=== PATIENT | female | born 1965 | race Caucasian/White ===

== ENCOUNTER → 2016-07-08 | Outpatient (CLI) | payer MEDICAID | LOC: WI 12:22 | PROVIDERS: ATTEND Internal Medicine Medical Oncology | DX: I42.7 Cardiomyopathy due to drug and external agent (principal); N63 Unspecified lump in breast | CPT/HCPCS: 78472; 76641; A9560; Q9969 ==

== ENCOUNTER → 2016-07-09 | Outpatient (CLI) | payer MEDICAID | LOC: RAD 13:00 | PROVIDERS: ATTEND Internal Medicine Medical Oncology | DX: C79.51 Secondary malignant neoplasm of bone (principal); C50.919 Malignant neoplasm of unspecified site of unspecified female breast | CPT/HCPCS: 71260; 74177 ==

== ENCOUNTER → 2016-07-19 | Outpatient (CLI) | payer MEDICAID | LOC: RAD 10:20 | PROVIDERS: ATTEND Internal Medicine Medical Oncology | DX: C50.919 Malignant neoplasm of unspecified site of unspecified female breast (principal); R51 Headache | CPT/HCPCS: 70553; 78306; A9577; A9503; Q9969 ==

== ENCOUNTER → 2016-07-26 | Day surgery (SDC) | payer MEDICAID ==
[~2016-07-26] MED LIST: LIDOCAINE 2% INJ (20 MG/ML) 20 ML MDV ONE
== END ==
LOC: WI 12:40
PROVIDERS: ATTEND Internal Medicine Medical Oncology
PROC: 0HBT3ZX Excision of Right Breast, Percutaneous Approach, Diagnostic (ICD-10-PCS; principal; 2016-07-26)
DX: D05.91 Unspecified type of carcinoma in situ of right breast (principal); Z17.0 Estrogen receptor positive status [ER+]
CPT/HCPCS: 88342 ×2; 88341 ×2; 88305 ×2; 19083; J3490

== ENCOUNTER 2016-08-12 21:22 | Emergency (ER) | payer MEDICAID ==
[2016-08-12 21:50] VITALS: BP 121/81
--- NOTE | 2016-08-12 21:50 | ER Document Report ---
ED Medical Screen (RME) - General Stated Complaint: POSSIBLE DEHYDRATION Mode of Arrival: Ambulatory Information source: Patient Notes: Patient presents to the emergency department with history of cancer breast cancer that metastasized to her bone. Patient reports diarrhea for the past 4 days. Possible dehydration. She is drinking fluids. She reports chills and diarrhea. I have greeted and performed a rapid initial assessment of this patient. A comprehensive ED assessment and evaluation of the patient, analysis of test results and completion of the medical decision making process will be conducted by additional ED providers. TRAVEL OUTSIDE OF THE [place] IN LAST 30 DAYS: No - Related Data Allergies/Adverse Reactions: latex Allergy (Severe, Verified 11/01/15 10:13) blisters,rash morphine [Morphine] Allergy (Severe, Verified 11/01/15 10:13) short of breath Sulfa (Sulfonamide Antibiotics) Allergy (Intermediate, Verified 11/01/15 10:13) rash Plastic tape Adverse Reaction (Uncoded 11/01/15 10:13) Blisters Past Medical History - Past Medical History Cardiac Medical History: Denies: Hx Coronary Artery Disease, Hx Heart Attack, Hx Hypertension Pulmonary Medical History: Reports: Hx Asthma, Hx COPD - emphysema, Hx Pneumonia Denies: Hx Bronchitis Neurological Medical History: Denies: Hx Cerebrovascular Accident, Hx Seizures Malignancy Medical History: Reports: Hx Breast Cancer - Stage IV, mets to L5 and R & L posterior parietal skull. Musculoskeltal Medical History: Reports Hx Arthritis - generalized, Reports Hx Musculoskeletal Deformity, Reports Hx Musculoskeletal Trauma Psychiatric Medical History: Reports: Hx Anxiety Traumatic Medical History: Reports: Hx Fractures Past Surgical History: Reports: Hx Breast Surgery - Right lumpectomy x2 w/ axillary lymph node diseection., Hx Cholecystectomy, Hx Orthopedic Surgery - Left patellar reconstruction, Hx Tonsillectomy, Hx Tubal Ligation. Denies: Hx Hysterectomy - Immunizations Immunizations up to date: Yes Hx Diphtheria, Pertussis, Tetanus Vaccination: Yes
== END 2016-08-13 05:55 | disposition left against medical advice (07) ==
LOC: ER 21:22
DX: E86.0 Dehydration (principal); R19.7 Diarrhea, unspecified; C50.919 Malignant neoplasm of unspecified site of unspecified female breast; C79.51 Secondary malignant neoplasm of bone; J44.9 Chronic obstructive pulmonary disease, unspecified; Z90.710 Acquired absence of both cervix and uterus; Z88.6 Allergy status to analgesic agent; Z90.49 Acquired absence of other specified parts of digestive tract; Z91.040 Latex allergy status
CPT/HCPCS: 99281

== ENCOUNTER 2016-09-02 01:50 | Emergency (ER) | payer MEDICAID ==
[2016-09-02] MEDS ORDERED: IPRATROPIUM/ALBUTEROL 0.5-2.5 MG/3 ML AMPUL NEB ONE ×2 (02:44→03:32)
--- NOTE | 2016-09-02 02:50 | ER Document Report ---
ED General - General Chief Complaint: Shortness Of Breath Stated Complaint: POSSIBLE PNEUMONIA Notes: Patient is a 50-year-old female who has history of breast cancer and is on chemotherapy. She presents with complaint of cough and nasal congestion. She says she feels as if she cannot get the mucus out of her lungs. She says she has pain in the right side especially when she coughs. No vomiting. No diarrhea. She says that she at times feels chilled 1 her family members turn down with the thermostat in the house; however, she has not checked her temperature thermometer and therefore is unsure if she has actually had any fevers. No other complaints at this time. TRAVEL OUTSIDE OF THE [place] IN LAST 30 DAYS: No - Related Data Allergies/Adverse Reactions: latex Allergy (Severe, Verified 11/01/15 10:13) blisters,rash morphine [Morphine] Allergy (Severe, Verified 11/01/15 10:13) short of breath Sulfa (Sulfonamide Antibiotics) Allergy (Intermediate, Verified 11/01/15 10:13) rash Plastic tape Adverse Reaction (Uncoded 11/01/15 10:13) Blisters Past Medical History - Social History Smoking Status: Unknown if Ever Smoked Frequency of alcohol use: None Drug Abuse: None Family History: Reviewed & Not Pertinent - Past Medical History Cardiac Medical History: Denies: Hx Coronary Artery Disease, Hx Heart Attack, Hx Hypertension Pulmonary Medical History: Reports: Hx Asthma, Hx COPD - emphysema, Hx Pneumonia Denies: Hx Bronchitis Neurological Medical History: Denies: Hx Cerebrovascular Accident, Hx Seizures Renal/ Medical History: Denies: Hx Peritoneal Dialysis Malignancy Medical History: Reports: Hx Breast Cancer - Stage IV, mets to L5 and R & L posterior parietal skull. Musculoskeltal Medical History: Reports Hx Arthritis - generalized, Reports Hx Musculoskeletal Deformity, Reports Hx Musculoskeletal Trauma Psychiatric Medical History: Reports: Hx Anxiety Traumatic Medical History: Reports: Hx Fractures Past Surgical History: Reports: Hx Breast Surgery - Right lumpectomy x2 w/ axillary lymph node diseection., Hx Cholecystectomy, Hx Orthopedic Surgery - Left patellar reconstruction, Hx Tonsillectomy, Hx Tubal Ligation. Denies: Hx Hysterectomy - Immunizations Immunizations up to date: Yes Hx Diphtheria, Pertussis, Tetanus Vaccination: Yes Hx Pneumococcal Vaccination: 01/26/15 Review of Systems - Review of Systems Notes: My Normal Review Basic REVIEW OF SYSTEMS: CONSTITUTIONAL : No objective fever. Well-appearing. EENT: Nasal congestion. CARDIOVASCULAR: Pain in right-sided ribs when coughing. RESPIRATORY: Recurrent cough. GASTROINTESTINAL: Denies abdominal pain. Denies nausea, vomiting, or diarrhea. Denies constipation. Last BM: GENITOURINARY: Denies difficulty urinating, painful urination, burning, frequency, or blood in urine. MUSCULOSKELETAL: Denies neck or back pain or joint pain or swelling. SKIN: Denies rash or skin lesions. NEUROLOGICAL: Denies altered mental status or loss of consciousness. Denies headache. Denies weakness or paralysis or loss of use of either side. Denies problems with gait or speech. Denies sensory or motor loss. ALL OTHER SYSTEMS REVIEWED AND NEGATIVE. Physical Exam - Notes Notes: General Appearance: Well nourished, alert, cooperative, no acute distress, no obvious discomfort. Audible nasal congestion during exam. Vitals: reviewed, See vital signs table. Head: no swelling or tenderness to the head Eyes: PERRL, EOMI, Conjuctiva clear Mouth: No decreasd moisture Throat: No tonsillar inflammation, No airway obstruction, No lymphadenopathy Neck: Supple, no neck tenderness, Lungs: Slight expiratory wheezing in lung bases. No rales, No rhonci, No accessory muscle use, good air exchange bilaterally. Heart: Normal rate, Regular rythm, No murmur, no rub Abdomen: Normal BS, soft, No rigidity, No abdominal tenderness, No guarding, no rebound, no abdominal masses, no organomegaly Extremities: strength 5/5 in all extremities, good pulses in all extremities, no swelling or tenderness in the extremities, no edema. Skin: warm, dry, appropriate color, no rash Neuro: speech clear, oriented x 3, normal affect, responds appropriately to questions. Course - Re-evaluation Re-evalutation: 09/02/16 03:32 Patient's ANC is just over 2200. - Laboratory Result Diagrams: 09/02/16 02:55 09/02/16 02:55 Laboratory results interpreted by me: 09/02/16 09/02/16 02:55 02:55 WBC 3.0 L RBC 3.69 L MCV 100 H MCH 34.2 H RDW 19.1 H Plt Count 103 L Calcium 7.4 L - Transfer of Care Notes: 09/02/16 04:36 Patient says she's feeling improved but my concern is that her oxygen level continues to trend down into the upper 80s when off nasal cannula. I informed her that she still has some rhonchorous and wheezing in her lung sounds and with her having recurrent hypoxemia that she needs to stay in the ER. Patient says that she cannot stay in ER she has 2 dogs that she does take her home. Patient does have other family members at home including her 30-year-old son. I asked her she would call her 30-year-old son to see if he would care for the dogs. Patient says that he would not see a dental work. I strongly encouraged patient to stay in the hospital because if she has itchy worsening hypoxemia home she could eventually . I did explain this to her in detail. Patient is understanding of this but still says that she is to be discharged home. She is a paper her ANC is about 2200. Her chest x-ray does not show pneumonia but being that she is on chemotherapy appropriate place her on antibiotic. I will place her on steroids. We'll give her albuterol inhaler as she says that she is to cone picker her prescription of albuterol falls from the pharmacy. I encourage her to return to ER immediately at any time so that we can continue treatment of her get her better. Patient will be discharged home she requests. Patient is awake and alert and oriented and capable of making her own medical decisions and I cannot hold her against her will. Dictation of this chart was performed using voice recognition software; therefore, there may be some unintended grammatical errors. Discharge - Discharge Clinical Impression: Bronchitis, Hypoxemia Condition: Fair Disposition: AGAINST MEDICAL ADVICE Additional Instructions: As discussed with you I strongly feel that you should be admitted to the hospital because your oxygen level continues to become low when you are resting in the bed and not on oxygen. My fear is that your breathing will become worse and this could lead to or serious sickness. We do respect your right to choose to leave against medical advice. We want what is best for you and strongly encourage you to return to the ER at anytime so we can continue treatment to help improve your breathing. Please follow up with your doctor today if you do not come back to the ER. Please return to the ER at anytime. Please continue to do breathing treatment. Please take the antibiotics and steroids as prescribed. Prescriptions: Levofloxacin [Levaquin 750 mg Tablet] 750 mg PO DAILY #6 tablet Prednisone [Deltasone 20 mg Tablet] 3 tab PO DAILY 4 Days Referrals: CHADD ELIZABETH MD [ACTIVE STAFF] - 09/02/16
[2016-09-02 03:16] LABS: ABSOLUTE EOSINOPHILS # (AUTO) 0.1 10^3/uL (0.0-0.6); ABSOLUTE LYMPHOCYTES (AUTO) 0.5 10^3/uL (0.5-4.7); ABSOLUTE MONOCYTES (AUTO) 0.2 10^3/uL (0.1-1.4); ABSOLUTE NEUT (AUTO) 2.3 10^3/uL (1.7-8.2); BASOPHILS % (AUTO) 0.6 % (0-2); EOSINOPHILS % (AUTO) 4.2 % (0-6); HEMOGLOBIN 12.6 g/dL (12.0-15.5); HGB HCT DIFFERENCE 0.8; LYMPHOCYTES % (AUTO) 14.8 % (13-45); MEAN CORPUSCULAR HEMOGLOBIN 34.2 pg (27.0-33.4); MEAN CORPUSCULAR HGB CONC 34.1 g/dL (32.0-36.0); MEAN CORPUSCULAR VOLUME 100 fl (80-97); RED BLOOD COUNT 3.69 10^6/uL (3.72-5.28); RED CELL DISTRIBUTION WIDTH 19.1 % (11.5-14.0); SEGMENTED NEUTROPHILS % (AUTO) 74.4 % (42-78)
[2016-09-02 03:28] LABS: ANION GAP 8 (5-19); BLOOD UREA NITROGEN 16 mg/dL (7-20); CALCIUM 7.4 mg/dL (8.4-10.2); CARBON DIOXIDE 29 mmol/L (22-30); CHLORIDE 105 mmol/L (98-107); GLUCOSE 98 mg/dL (75-110); POTASSIUM 4.2 mmol/L (3.6-5.0)
[2016-09-02] MEDS ORDERED: METHYLPREDNISOLONE INJ 125 MG/2 ML SDV IV ONE (03:32)
[2016-09-02] MEDS: MAGNESIUM SULFATE/D5W 100 ML IV SCH ×2 (03:54→05:16)
[2016-09-02] MEDS ORDERED: ALBUTEROL SULFATE HFA (90 MCG/PUFF) 200 PUFF/8.5 GM MDI IH ONE (04:29)
[2016-09-02 05:22] VITALS: BP 102/71
== END 2016-09-02 05:22 | disposition left against medical advice (07) ==
LOC: ER 01:50
DX: J40 Bronchitis, not specified as acute or chronic (principal); R09.02 Hypoxemia; C50.912 Malignant neoplasm of unspecified site of left female breast; C50.911 Malignant neoplasm of unspecified site of right female breast; C79.51 Secondary malignant neoplasm of bone; Z91.040 Latex allergy status; Z88.6 Allergy status to analgesic agent; Z88.2 Allergy status to sulfonamides; Z90.49 Acquired absence of other specified parts of digestive tract
CPT/HCPCS: 36591; 94640 ×2; 99285; 96375; 96365; 36415; 85025; 80048; 71020; J2930; J3475; J3490; J7620

== ENCOUNTER → 2016-10-08 | Outpatient (CLI) | payer MEDICAID ==
[2016-10-08 14:35] LABS: ABSOLUTE LYMPHOCYTES (AUTO) 0.5 10^3/uL (0.5-4.7); ABSOLUTE MONOCYTES (AUTO) 0.1 10^3/uL (0.1-1.4); ABSOLUTE NEUT (AUTO) 2.6 10^3/uL (1.7-8.2); BASOPHILS % (AUTO) 0.8 % (0-2); EOSINOPHILS % (AUTO) 1.4 % (0-6); HEMOGLOBIN 14.2 g/dL (12.0-15.5); HGB HCT DIFFERENCE 0.6; LYMPHOCYTES % (AUTO) 16.2 % (13-45); MEAN CORPUSCULAR HGB CONC 33.8 g/dL (32.0-36.0); MEAN CORPUSCULAR VOLUME 104 fl (80-97); MONOCYTES % (AUTO) 4.5 % (3-13); RED BLOOD COUNT 4.05 10^6/uL (3.72-5.28); RED CELL DISTRIBUTION WIDTH 18.9 % (11.5-14.0); SEGMENTED NEUTROPHILS % (AUTO) 77.1 % (42-78); WHITE BLOOD COUNT 3.3 10^3/uL (4.0-10.5)
[2016-10-08 14:44] LABS: APPEARANCE,URINE CLOUDY; BILIRUBIN,URINE NEGATIVE (NEGATIVE); GLUCOSE, URINE NEGATIVE (NEGATIVE); KETONES,URINE NEGATIVE (NEGATIVE); LEUKOCYTE ESTERASE,URINE NEGATIVE (NEGATIVE); NITRITE,URINE NEGATIVE (NEGATIVE); PROTEIN,URINE 30 mg/dL (NEGATIVE); URINE SPECIFIC GRAVITY 1.023; UROBILINOGEN,URINE NEGATIVE mg/dL (<2.0)
[2016-10-08 14:57] LABS: ALANINE AMINOTRANSFERASE 21 U/L (9-52); ALKALINE PHOSPHATASE 87 U/L (38-126); ANION GAP 10 (5-19); ASPARTATE AMINO TRANSFERASE 19 U/L (14-36); BILIRUBIN,DIRECT 0.5 mg/dL (0.0-0.4); BILIRUBIN,TOTAL 0.9 mg/dL (0.2-1.3); BLOOD UREA NITROGEN 10 mg/dL (7-20); CARBON DIOXIDE 24 mmol/L (22-30); CHLORIDE 105 mmol/L (98-107); CHOLESTEROL 176.34 mg/dL (0-200); CREATININE RESULT 0.88 mg/dL (0.52-1.25); Direct HDL 41 mg/dL (>40); GLUCOSE 96 mg/dL (75-110); POTASSIUM 4.7 mmol/L (3.6-5.0); SODIUM 138.7 mmol/L (137-145); TRIGLYCERIDES 144 mg/dL (<150)
[2016-10-08 15:08] LABS: DIRECT LDL 100 mg/dL (<100)
[2016-10-08 16:11] LABS: CHLAM PCR NOT DETECTED (NOT DETECT)
[2016-10-10 11:40] LABS: ABSOLUTE CD 4 HELPER 185 /uL (359-1519); CD BASOPHILS 1 % (.); CD EOSINOPHILS 2 % (.); CD MONOCYTES 4 % (.); CD NEUTROPHILS 76 % (.); HEMATOCRIT . 41.4 % (34.0-46.6); IMMATURE GRANULOCYTES 0 % (.); LYMPHS(ABSOLUTE) 0.6 x10E3/uL (0.7-3.1); MCH 35.4 pg (26.6-33.0); MCHC 33.8 g/dL (31.5-35.7); MCV 105 fL (79-97); NEUTROPHILS(ABSOLUTE) 2.5 x10E3/uL (1.4-7.0); PLATELETS 166 x10E3/uL (150-379); RBC 3.96 x10E6/uL (3.77-5.28); RDW 18.6 % (12.3-15.4); WBC 3.3 x10E3/uL (3.4-10.8)
[2016-10-11 10:01] LABS: HIV-1 RNA PCR QUANT <20 copies/mL (.)
== END ==
LOC: LAB 14:16
PROVIDERS: ATTEND Nurse Practitioner
DX: B20 Human immunodeficiency virus [HIV] disease (principal); Z11.3 Encounter for screening for infections with a predominantly sexual mode of transmission; Z79.899 Other long term (current) drug therapy
CPT/HCPCS: 36415; 80053; 80061; 81001; 85025; 86360; 86592; 87491; 87536; 87591

== ENCOUNTER → 2016-10-21 | Outpatient (CLI) | payer MEDICAID ==
--- NOTE | 2016-10-21 12:23 | RADIOLOGY REPORT (SQ) ---
EXAM DESCRIPTION: CT CHEST WITH COMPLETED DATE/TIME: 10/21/2016 10:55 am REASON FOR STUDY: BREAST CA (C50.411) C50.411 MALIG NEOPLM OF UPPER-OUTER QUADRANT OF RIGHT FEMALE COMPARISON: 07/09/2016, 04/22/2016 TECHNIQUE: CT scan of the chest performed using helical scanning technique with dynamic intravenous contrast injection. Images reviewed with lung, soft tissue and bone windows. Reconstructed coronal and sagittal MPR images reviewed. All images stored on PACS. All CT scanners at this facility use dose modulation, iterative reconstruction, and/or weight based d osing when appropriate to reduce radiation dose to as low as reasonably achievable (ALARA). [facility]: Dose Right [facility]: CareDose [facility]: Dose Right [facility]: Teradose 4D [facility]: Metwit CONTRAST TYPE AND DOSE: 75mL Isovue-300 RENAL FUNCTION: BUN 8, creatinine 0.7 RADIATION DOSE: 27.67 mGy. LIMITATIONS: None. FINDINGS: LUNGS AND PLEURA: Emphysematous changes are again noted and grossly stable from prior stud y. No focal nodules or consolidation. HILAR AND MEDIASTINAL STRUCTURES: No identified masses or abnormal nodes. HEART AND VASCULAR STRUCTURES: No aneurysm or dissection. No central pulmonary emboli. No pericardi al effusion. HARDWARE: [id number] is in place. UPPER ABDOMEN: No significant findings. Limited exam. THYROID AND OTHER SOFT TISSUES: No masses. No adenopathy. BONES: There are focal areas of sclerosis in the T5 and T10 vertebral bodies. These are new from 04/22/2016 in suspicious for metastatic disease. They have progressed since June of this year. OTHER: No other significant finding. IMPRESSION: Sclerotic lesions in T5 and T10 suspicious for metastatic disease. Emphysematous change s are stable in appearance. TECHNICAL DOCUMENTATION: JOB ID: [id number] Quality ID # [id number]: Final reports with documentation of one or more dose reduction techniques (e.g., Au tomated exposure control, adjustment of the mA and/or kV according to patient size, use of iterative reconstruction technique) 2010 [employer]- All Rights Reserved
--- NOTE | 2016-10-21 12:33 | RADIOLOGY REPORT (SQ) ---
EXAM DESCRIPTION: CT ABD/PELVIS WITH IV ORAL COMPLETED DATE/TIME: 10/21/2016 10:55 am REASON FOR STUDY: BREAST CA (C50.411) C50.411 MALIG NEOPLM OF UPPER-OUTER QUADRANT OF RIGHT FEMALE COMPARISON: 07/09/2016 TECHNIQUE: CT scan of the abdomen and pelvis performed using helical scanning technique with dynamic intravenous contrast injection. No oral contrast. Images reviewed with lung, soft tissue, and bone windows. Reconstructed coronal and sagittal MPR images reviewed. Delayed images for evaluation of the urinary system also acquired. All images stored on PACS. All CT scanners at this facility use dose modulation, iterative reconstruction, and/or weight based d osing when appropriate to reduce radiation dose to as low as reasonably achievable (ALARA). [facility]: Dose Right [facility]: CareDose [facility]: Dose Right [facility]: Teradose 4D [facility]: NetzVacation CONTRAST TYPE AND DOSE: 75mL Isovue-300 RENAL FUNCTION: BUN 8, creatinine 0.7 RADIATION DOSE: 33.91mGy. LIMITATIONS: The study is limited by some type of CT artifact. The study is however diagnostic. FINDINGS: LOWER CHEST: Stable in appearance. LIVER: Intrahepatic ducts remain dilated. The patient has had prior cholecystectomy. SPLEEN: No suspicious lesions. PANCREAS: No masses. No significant calcifications. No adjacent inflammation or peripancreatic fluid collections. Pancreatic duct not dilated. GALLBLADDER: Prior cholecystectomy appear ADRENAL GLANDS: No significant masses or asymmetry. RIGHT KIDNEY AND URETER: No solid masses. No significant calcifications. No hydronephrosis or hyd roureter. LEFT KIDNEY AND URETER: No solid masses. No significant calcifications. No hydronephrosis or hydr oureter. AORTA AND VESSELS: No aneurysm. No dissection. Renal arteries, SMA, celiac without stenosis. RETROPERITONEUM: No retroperitoneal adenopathy, hemorrhage or masses. BOWEL AND PERITONEAL CAVITY: No masses or inflammatory changes. No free fluid or peritoneal masses. APPENDIX: Not visualized. PELVIS: No mass or free fluid. Normal bladder. ABDOMINAL WALL: No masses. No hernias. BONES: Stable area of sclerosis in L3. There is a focal sclerotic lesion in the right iliac crest. Probable Schmorl's node at L5 with surrounding reactive changes. This is stable as well. OTHER: No other significant finding. IMPRESSION: Stable CT the abdomen pelvis. There are scattered small sclerotic lesions bony metastat ic disease cannot be excluded but has not progressed. TECHNICAL DOCUMENTATION: JOB ID: [id number] Quality ID # [id number]: Final reports with documentation of one or more dose reduction techniques (e.g., Au tomated exposure control, adjustment of the mA and/or kV according to patient size, use of iterative reconstruction technique) 2010 [employer]- All Rights Reserved
== END ==
LOC: RAD 10:07
PROVIDERS: ATTEND Specialist
DX: C50.411 Malignant neoplasm of upper-outer quadrant of right female breast (principal)
CPT/HCPCS: 71260; 74177

== ENCOUNTER 2016-10-29 20:53 | Emergency (ER) | payer MEDICAID ==
[2016-10-29 21:20] VITALS: BP 122/77
== END 2016-10-29 22:50 | disposition left against medical advice (07) ==
LOC: ER 20:53
DX: Z53.21 Procedure and treatment not carried out due to patient leaving prior to being seen by health care provider (principal)

== ENCOUNTER → 2016-10-31 | Outpatient (CLI) | payer MEDICAID ==
--- NOTE | 2016-11-01 13:13 | XCELERA REPORT ---
[address] [address] Lower Extremity Venous Evaluation Name: JEAN CARLOS FRIAS Age: 50 yrs Gender: Female : 1965 Patient Status: Outpatient Patient Location: Study Date: 10/31/2016 04:21 PM Procedure: Color flow and duplex imaging of the veins of the right lower extremity as well as the left Common Femoral vein. Reason For Study: RLE PAIN, SWELLING Ordering Physician: JOHN PINZON Performed By: Belle Davey Right Sided Venous Evaluation Normal vessel filling wall to wall, compression and augmentation as well as Colour flow down to the infrageniculate veins. Left Sided Venous Evaluation The left common femoral vein is fully compressible. Spontaneous and phasic flow is present in the left common femoral vein. Interpretation Summary No duplex evidence of DVT or obstruction in the right lower extremity nor in the left Common Femoral vein. : JOHN PINZON [place]
== END ==
LOC: SP 16:15
PROVIDERS: ATTEND Specialist
DX: M79.604 Pain in right leg (principal); M79.89 Other specified soft tissue disorders
CPT/HCPCS: 93971

== ENCOUNTER → 2016-11-27 | Outpatient (CLI) | payer MEDICAID ==
--- NOTE | 2016-11-27 15:17 | RADIOLOGY REPORT (SQ) ---
EXAM DESCRIPTION: NM WHOLE BODY BONE SCAN COMPLETED DATE/TIME: 11/27/2016 1:44 pm REASON FOR STUDY: BREAST CA (C50.411) C50.411 MALIG NEOPLM OF UPPER-OUTER QUADRANT OF RIGHT FEMALE COMPARISON: CT chest, abdomen and pelvis dated 10/21/2016, prior bone scan dated 07/19/2016. RADIONUCLIDE AND DOSE: 21.8 millicuries Tc99m MDP. The route of agent administration: Intravenous. ADDITIONAL DRUGS AND DOSES: None. TECHNIQUE: Routine delayed images at 3 hour post radionuclide injection acquired of the bony skeleto n including anterior and posterior whole-body projections and additional focused images as needed. LIMITATIONS: None. FINDINGS: BONES: There is persistent uptake in posterior and anterior left ribs. Focal areas of upt chester or present in the dorsal spine which are stable. There is uptake in both knees and proximal tibi as. Uptake in the shoulders, sternum and skull is stable as well. KIDNEYS: Symmetric excretion without obstruction. OTHER: No other significant finding. IMPRESSION: Stable bone scan with persistent areas of uptake scattered throughout the axial and appe ndicular skeleton. COMMENT: PQRS 3570F: Current bone scan is compared with any available plain radiographs, prior bone scans, and CT/MRI. TECHNICAL DOCUMENTATION: JOB ID: [id number] [email or web address]- All Rights Reserved
== END ==
LOC: RAD 09:30
PROVIDERS: ATTEND Specialist
DX: C50.411 Malignant neoplasm of upper-outer quadrant of right female breast (principal)
CPT/HCPCS: 78306; A9561; Q9969

== ENCOUNTER → 2016-12-05 | Outpatient (CLI) | payer MEDICAID ==
--- NOTE | 2016-12-05 15:18 | WOMENS IMAGING REPORT ---
EXAM DESCRIPTION: LEFT DIAGNOSTIC MAMMO W/CAD COMPLETED DATE/TIME: 12/05/2016 8:43 am REASON FOR STUDY: C50.411 C50.411 MALIG NEOPLM OF UPPER-OUTER QUADRANT OF RIGHT FEMALE COMPARISON: November 2012 TECHNIQUE: Standard craniocaudal and mediolateral oblique images of the breast recorded with digital acquisition. An additional true lateral view of the left breast was obtained. LIMITATIONS: None. FINDINGS: BREAST: Left MASSES: No discrete masses are identified. There is marked thickening of the skin of the left breast and the possibility of inflammatory breast cancer should be considered. Ultrasound will be obtained for further evaluation. CALCIFICATIONS: No new or suspicious calcifications. ARCHITECTURAL DISTORTION: None. DEVELOPING DENSITY: None. ASYMMETRY: None noted. OTHER: No other significant findings. Read with the assistance of CAD. .[employer] - R2 C[employer]ova Version 1.3 .[facility] Imaging - R2 Cenova Version 1.3 .[facility] - R2 Cenova Version 2.4 .[facility] - R2 Cenova Version 2.4 .[facility] - R2 [employer] Version 9.2 BREAST ULTRASOUND: TECHNIQUE: Static and dynamic grayscale images acquired of the left breast in the specific areas of c linical/mammographic concern. Selected color Doppler images recorded. ELASTOGRAPHY PERFORMED: No. LIMITATIONS: None. FINDINGS: MASS: There is fairly diffuse alteration of the normal fibroglandular tissue with multiple hypoechoic masses being identified with distal shadowing. The appearance is suspicious for multicentric breast neoplasms. This is a associated with marked thickening of the scan an soft tissue edema. ELASTOGRAPHY CHARACTERISTICS: Not applicable. OTHER: Abnormal axillary lymph nodes are identified. IMPRESSION: Findings suspicious for an inflammatory breast neoplasm. BREAST DENSITY: c. The breasts are heterogeneously dense, which may obscure small masses. BIRAD: 4 Suspicious. Biopsy should be considered. RECOMMENDATION: RECOMMENDED FOLLOW UP: Recommend ultrasound-guided biopsy. SPECIFIC INTERVENTION/IMAGING/CONSULTATION RECOMMENDED:No additional intervention/ imaging/consultati on needed at this time. COMMUNICATION:The imaging findings were not discussed with the patient. Her referring provider has be en notified of the findings. COMMENT: The patient has been notified of the results by letter per SA requirements. Additional no tification policies are in place for contacting patient with suspicious or incomplete findings. Quality ID #225: The [employer] recommends an annual screening mammogram for women aged 40 years or over. This facility utilizes a reminder system to ensure that all patients receive reminder letters, and/or direct phone calls for appointments. This includes reminders for routine scr eening mammograms, diagnostic mammograms, or other Breast Imaging Interventions when appropriate. Th is patient will be placed in the appropriate reminder system. The [employer] (ACR) has developed recommendations for screening MRI of the breast s in certain patient populations, to be used in conjunction with mammography. Breast MRI surveillanc e may be appropriate for women with more than 20% lifetime risk of developing breast cancer as deter mined by genetic testing, significant family history of the disease, or history of mantle radiation f or Hodgkins Disease. ACR Practice Guidelines 2008. TECHNICAL DOCUMENTATION: FINDING NUMBER: (1) ASSESSMENT: (1) JOB ID: [id number] [employer]- All Rights Reserved
--- NOTE | 2016-12-05 15:18 | WOMENS IMAGING REPORT ---
EXAM DESCRIPTION: U/S BREAST UNILATERAL, COMPL COMPLETE DATE/TIME: 12/05/2016 10:04 am REASON FOR STUDY: N63 C50.411 MALIG NEOPLM OF UPPER-OUTER QUADRANT OF RIGHT FEMALE FINDINGS: Please see combined report for performance of procedure and radiologic supervision and int erpretation. IMPRESSION: Please see combined report for performance of procedure and radiologic supervision and i nterpretation.
== END ==
LOC: WI 07:49
PROVIDERS: ATTEND Internal Medicine
DX: C50.411 Malignant neoplasm of upper-outer quadrant of right female breast (principal)
CPT/HCPCS: 76641; G0206

== ENCOUNTER → 2016-12-12 | Outpatient (CLI) | payer MEDICAID | LOC: RAD 09:47 | PROVIDERS: ATTEND Radiology Radiation Oncology | PROC: 3E033HZ Introduction of Radioactive Substance into Peripheral Vein, Percutaneous Approach (ICD-10-PCS; principal; 2016-12-12) | DX: C50.919 Malignant neoplasm of unspecified site of unspecified female breast (principal); C79.51 Secondary malignant neoplasm of bone | CPT/HCPCS: 79101; A9604 ==

== ENCOUNTER → 2016-12-16 | Day surgery (SDC) | payer MEDICAID ==
--- NOTE | 2016-12-20 08:32 | WOMENS IMAGING REPORT ---
EXAM DESCRIPTION: U/S BREAST BX; LEFT DIG DX MAMMO NO CHG COMPLETED DATE/TIME: 12/16/2016 2:15 pm; 12/16/2016 1:58 pm REASON FOR STUDY: LEFT BREAST MASS; N63; N63 LEFT US BREAST BX FOR CLIP PLACEMENT N63 UNSPECIFIED L UMP IN BREAST COMPARISON: 12/05/2016. TECHNIQUE: The procedure was discussed with the patient and the patient agreed to proceed. The patient was scanned and the area of interest in the 10 o'clock position of the left breast was lo calized. This correlates with the area of concern on prior imaging studies. This area was targeted f or ultrasound-guided core biopsy. After sterile skin prep and 10 mL local lidocaine 1% for skin and deep tissue anesthesia, a 14 gauge coaxial core biopsy needle was used to obtain several cores of tissue from the lesion. Under ultraso und guidance, a ribbon clip was placed in the areas sampled. There were no immediate post-procedure complications. MAMMOGRAM: Post-procedure two view mammogram was acquired in the digital mammogram suite. The clip wa s in the expected location. No significant hematoma. Pathology yields a diagnosis of invasive ductal carcinoma with lobular features. Pathology is concordant. LIMITATIONS: None. FINDINGS: Ultrasound guided breast biopsy as described above. POST PROCEDURE MAMMOGRAMS FOR MARKER PLACEMENT: Yes IMPRESSION: ULTRASOUND-GUIDED CORE BIOPSY OF THE LEFT BREAST YIELDS A DIAGNOSIS OF INVASIVE DUCTAL C ARCINOMA WITH LOBULAR FEATURES. COMMENT: COMMUNICATION: The patient will be notified of the findings and will discuss further option s with her provider. Patient medication list reviewed: Yes- Quality ID# [id number]:Eligible professional attests to documenting i n the medical record they obtained, updated, or reviewed the patient's current medications. TECHNICAL DOCUMENTATION: JOB ID: [id number] [employer]- All Rights Reserved
== END ==
LOC: WI 12:39
PROVIDERS: ATTEND Internal Medicine
PROC: 0HBU3ZX Excision of Left Breast, Percutaneous Approach, Diagnostic (ICD-10-PCS; principal; 2016-12-16)
DX: C50.912 Malignant neoplasm of unspecified site of left female breast (principal)
CPT/HCPCS: 88342 ×2; 88341 ×2; 88305 ×2; 19083; J3490

== ENCOUNTER 2016-12-31 21:48 | Emergency (ER) | payer MEDICAID ==
--- NOTE | 2016-12-31 22:56 | ER Document Report ---
ED General - General Chief Complaint: Trouble Voiding Stated Complaint: POSSIBLE HIGH POTASSIUM Time Seen by Provider: 12/31/16 22:13 Notes: Patient is a 51 year old female with a past medical history of metastatic breast cancer, not currently on any chemotherapeutic agents as her cancer has been deemed incurable and is only under palliative management at this time who presents at 36 hours of reportedly no urine output. Patient does report chronic diarrhea worse over the last several days than before. She has not seen a primary care doctor oncologist regarding today's concerns. Nothing improves or worsens her symptoms. Denies a history of similar symptoms in the past. No history of chronic kidney disease. States she has been drinking fluids but admits that is mostly tea and Mountain Dew. TRAVEL OUTSIDE OF THE [place] IN LAST 30 DAYS: No - Related Data Allergies/Adverse Reactions: latex Allergy (Severe, Verified 11/01/15 10:13) blisters,rash morphine [Morphine] Allergy (Severe, Verified 11/01/15 10:13) short of breath Sulfa (Sulfonamide Antibiotics) Allergy (Intermediate, Verified 11/01/15 10:13) rash Plastic tape Adverse Reaction (Uncoded 11/01/15 10:13) Blisters Past Medical History - General Information source: Patient - Social History Smoking Status: Never Smoker Frequency of alcohol use: None Drug Abuse: None Lives with: Alone Family History: Reviewed & Not Pertinent Patient has suicidal ideation: No Patient has homicidal ideation: No - Past Medical History Cardiac Medical History: Denies: Hx Coronary Artery Disease, Hx Heart Attack, Hx Hypertension Pulmonary Medical History: Reports: Hx Asthma, Hx COPD - emphysema, Hx Pneumonia Denies: Hx Bronchitis Neurological Medical History: Denies: Hx Cerebrovascular Accident, Hx Seizures Renal/ Medical History: Denies: Hx Peritoneal Dialysis Malignancy Medical History: Reports: Hx Breast Cancer - Stage IV, mets to L5 and R & L posterior parietal skull. Musculoskeltal Medical History: Reports Hx Arthritis - generalized, Reports Hx Musculoskeletal Deformity, Reports Hx Musculoskeletal Trauma Psychiatric Medical History: Reports: Hx Anxiety Traumatic Medical History: Reports: Hx Fractures Past Surgical History: Reports: Hx Breast Surgery - Right lumpectomy x2 w/ axillary lymph node diseection., Hx Cholecystectomy, Hx Orthopedic Surgery - Left patellar reconstruction, Hx Tonsillectomy, Hx Tubal Ligation. Denies: Hx Hysterectomy - Immunizations Immunizations up to date: Yes Hx Diphtheria, Pertussis, Tetanus Vaccination: Yes Hx Pneumococcal Vaccination: 01/26/15 Review of Systems - Review of Systems Notes: Constitutional: Negative for fever. HENT: Negative for sore throat. Eyes: Negative for visual changes. Cardiovascular: Negative for chest pain. Respiratory: Negative for shortness of breath. Gastrointestinal: Positive for diarrhea Genitourinary: Negative for dysuria. Positive for oliguria Musculoskeletal: Negative for back pain. Skin: Negative for rash. Neurological: Negative for headaches, weakness or numbness. 10 point ROS negative except as marked above and in HPI. Physical Exam - Vital signs Vitals: Temp Pulse Resp BP Pulse Ox 98.5 F 121 H 16 96/69 L 96 12/31/16 21:56 12/31/16 21:56 12/31/16 21:56 12/31/16 21:56 12/31/16 21:56 Interpretation: Hypotensive, Tachycardic Notes: PHYSICAL EXAMINATION: GENERAL: Appears tired, somewhat older than stated age but in no acute distress HEAD: Atraumatic, normocephalic. EYES: Pupils equal round and reactive to light, extraocular movements intact, sclera anicteric, conjunctiva are normal. ENT: nares patent, oropharynx clear without exudates. Moderately dry mucous membranes. NECK: Normal range of motion, supple without lymphadenopathy LUNGS: Breath sounds clear to auscultation bilaterally and equal. No wheezes rales or rhonchi. HEART: Regular tachycardia without murmurs ABDOMEN: Soft, nontender, normoactive bowel sounds. No guarding, no rebound. No masses appreciated. EXTREMITIES: Normal range of motion, no pitting or edema. No cyanosis. NEUROLOGICAL: No focal neurological deficits. Moves all extremities spontaneously and on command. PSYCH: Normal mood, normal affect. SKIN: Warm, Dry, normal turgor, no rashes or lesions noted. Course - Re-evaluation Re-evalutation: 12/31/16 22:55 Patient presents with a history of very worrisome for renal failure in the setting of metastatic breast cancer that is not responsive to chemotherapy. Patient reports making [place] no urine in the past 36 hours and a catheterization done here in the emergency department only revealed approximately 50-60 cc of very dark brown urine. Patient does appear clinically very dehydrated, dry oral mucosa, cracked lips, and poor skin turgor. Her vitals do show tachycardia but no other immediate abnormalities. Patient reports that her diarrhea is baseline only slightly worse today. She has [place] no focal abdominal tenderness on examination suspect an acute mesenteric ischemia, bowel obstruction, volvulus, acute biliary pathology or an acute hepatitis based on her exam and history. 01/01/17 00:29 Patient's laboratories show only hypokalemia without any evidence of acute renal failure or hyperkalemia. Suspect that patient's poor urine output was secondary to her persistent diarrhea which she has at baseline secondary to her prior chemotherapy. I also suspect the patient must have had some urine output that she is not disclosing as not having any urine output for 36 hours but completely normal kidney function testing would be highly unlikely. Will continue to rehydrate, provide IV calcium, and plan for outpatient management. 01/01/17 01:41 Patient's initial tachycardia has resolved at time of my reassessment with her heart rate at 93 at this time. At this time will discharge with return precautions and follow-up recommendations. Verbal discharge instructions given a the bedside and opportunity for questions given. Medication warnings reviewed. Patient is in agreement with this plan and has verbalized understanding of return precautions and the need for primary care follow-up in the next 24-72 hours. - Vital Signs Vital signs: Temp Pulse Resp BP Pulse Ox 98.5 F 121 H 16 96/69 L 96 12/31/16 21:56 12/31/16 21:56 12/31/16 21:56 12/31/16 21:56 12/31/16 21:56 - Laboratory Result Diagrams: 12/31/16 23:05 12/31/16 23:05 Laboratory results interpreted by me: 12/31/16 12/31/16 12/31/16 22:25 23:05 23:05 WBC 1.7 L RBC 3.19 L Hgb 11.5 L Hct 32.8 L MCV 103 H MCH 36.0 H RDW 15.3 H Plt Count 46 L Band Neutrophils % 6 H Abs Neuts (Manual) 1.3 L Abs Lymphs (Manual) 0.2 L Sodium 133.4 L Potassium 3.3 L Calcium 6.7 L* Direct Bilirubin 0.7 H Total Protein 6.0 L Albumin 3.1 L Urine Protein 100 H Urine Bilirubin SMALL H Urine Urobilinogen 4.0 H Urine Ascorbic Acid 40 H Discharge - Discharge Clinical Impression: Dehydration, Low urine output, Hypocalcemia Condition: Fair Disposition: HOME, SELF-CARE Additional Instructions: Your labs today do not show kidney failure but do show some dehydration. You have been given 2 L of IV fluid. Your calcium is also quite low and has been replaced here in the emergency department. Please follow-up with your primary doctor and oncologist at your earliest ability regarding today's emergency department visit. Return to the emergency department immediately if you pass out, have a fever of greater than 101F, or any other symptoms that are worrisome to you. Continue to drink plenty of water and hydrating solutions such as Pedialyte or Gatorade.
[2016-12-31 23:21] LABS: APPEARANCE,URINE CLEAR; BILIRUBIN,URINE SMALL (NEGATIVE); GLUCOSE, URINE NEGATIVE (NEGATIVE); KETONES,URINE NEGATIVE (NEGATIVE); LEUKOCYTE ESTERASE,URINE NEGATIVE (NEGATIVE); NITRITE,URINE NEGATIVE (NEGATIVE); PROTEIN,URINE 100 mg/dL (NEGATIVE); URINE SPECIFIC GRAVITY 1.032
[2016-12-31 23:31] LABS: HEMATOCRIT 32.8 % (36.0-47.0); HEMOGLOBIN 11.5 g/dL (12.0-15.5); HGB HCT DIFFERENCE 1.7; MEAN CORPUSCULAR HGB CONC 34.9 g/dL (32.0-36.0); MEAN CORPUSCULAR VOLUME 103 fl (80-97); RED BLOOD COUNT 3.19 10^6/uL (3.72-5.28); RED CELL DISTRIBUTION WIDTH 15.3 % (11.5-14.0)
[2016-12-31 23:57] LABS: BAND NEUTROPHILS % (MANUAL) 6 % (3-5); BASOPHILS % (MANUAL) 0 % (0-2); EOSINOPHILS % (MANUAL) 0 % (0-6); LYMPHOCYTES % (MANUAL) 13 % (13-45); TOTAL CELLS COUNTED 100
[2016-12-31] MEDS ORDERED: ONDANSETRON HCL INJ/PF 4 MG/2 ML SDV IV ONE (23:57)
[2016-12-31] MEDS ORDERED: NORMAL SALINE 1000 ML 1,000 ML IV ONE (23:57)
[2017-01-01 00:01] LABS: ANISOCYTOSIS SLIGHT; TOXIC GRANULATION SLIGHT; TOXIC VACUOLATION PRESENT
[2017-01-01 00:02] LABS: WHITE BLOOD COUNT 1.7 10^3/uL (4.0-10.5)
[2017-01-01 00:09] LABS: ALANINE AMINOTRANSFERASE 22 U/L (9-52); ALBUMIN 3.1 g/dL (3.5-5.0); ALKALINE PHOSPHATASE 65 U/L (38-126); ANION GAP 8 (5-19); ASPARTATE AMINO TRANSFERASE 22 U/L (14-36); BILIRUBIN,DIRECT 0.7 mg/dL (0.0-0.4); BILIRUBIN,TOTAL 1.1 mg/dL (0.2-1.3); BLOOD UREA NITROGEN 17 mg/dL (7-20); CARBON DIOXIDE 25 mmol/L (22-30); CHLORIDE 100 mmol/L (98-107); CREATININE RESULT 0.88 mg/dL (0.52-1.25); GLUCOSE 105 mg/dL (75-110); POTASSIUM 3.3 mmol/L (3.6-5.0); SODIUM 133.4 mmol/L (137-145)
[2017-01-01 00:17] LABS: CALCIUM 6.7 mg/dL (8.4-10.2)
[2017-01-01] MEDS ORDERED: CALCIUM GLUCONATE 1000 MG/10 ML INJ IV ONE (00:28)
[2017-01-01] MEDS ORDERED: NORMAL SALINE 1000 ML 1,000 ML IV ONE (00:30)
[2017-01-01 03:23] VITALS: BP 113/85
--- NOTE | 2017-01-01 08:12 | EKG REPORT ---
SEVERITY:- ABNORMAL ECG - SINUS TACHYCARDIA LEFT ATRIAL ABNORMALITY PROBABLE INFERIOR INFARCT, OLD BORDERLINE T ABNORMALITIES, ANT-LAT LEADS : Confirmed by: Seamus Rodriguez MD 01-Jan-2017 08:11:26
== END 2017-01-01 03:23 | disposition home or self-care (01) ==
LOC: ER 21:48
DX: E83.51 Hypocalcemia (principal); E86.0 Dehydration; C50.919 Malignant neoplasm of unspecified site of unspecified female breast; C79.9 Secondary malignant neoplasm of unspecified site; Z91.040 Latex allergy status; Z88.6 Allergy status to analgesic agent; Z88.2 Allergy status to sulfonamides; Z90.49 Acquired absence of other specified parts of digestive tract
CPT/HCPCS: 93005; 99284; 96361; 96375; 96365; 36415; 85025; 80053; 81001; 93010; J0610; J2405; J7030

== ENCOUNTER 2017-01-18 14:04 | Emergency (ER) | payer MEDICAID ==
[2017-01-18] MEDS ORDERED: NORMAL SALINE 1000 ML 1,000 ML IV PRN (14:25)
--- NOTE | 2017-01-18 14:25 | ER Document Report ---
ED Medical Screen (RME) - General Chief Complaint: Weakness Stated Complaint: WEAKNESS Time Seen by Provider: 01/18/17 14:16 Mode of Arrival: Wheelchair Information source: Patient Notes: 51-year-old female history of bone metastasis. Chemotherapy recently presents with generalized weakness. Patient notes she was diagnosed with URI given azithromycin a few days prior due to productive cough with a white count of 1.5. Patient notes recently she had severe hypocalcemia as well with dehydration I have greeted and performed a rapid initial assessment of this patient. A comprehensive ED assessment and evaluation of the patient, analysis of test results and completion of the medical decision making process will be conducted by additional ED providers. PHYSICAL EXAMINATION: GENERAL: Ill-appearing female no acute distress HEAD: Atraumatic, normocephalic. EYES: Pupils equal round extraocular movements intact, conjunctiva are normal. ENT: Nares patent NECK: Normal range of motion LUNGS: No respiratory distress Musculoskeletal: Normal range of motion NEUROLOGICAL: Normal speech, normal gait. PSYCH: Normal mood, normal affect. SKIN: Warm, Dry, normal turgor, no rashes or lesions noted. TRAVEL OUTSIDE OF THE [place] IN LAST 30 DAYS: No - Related Data Allergies/Adverse Reactions: latex Allergy (Severe, Verified 11/01/15 10:13) blisters,rash morphine [Morphine] Allergy (Severe, Verified 11/01/15 10:13) short of breath Sulfa (Sulfonamide Antibiotics) Allergy (Intermediate, Verified 11/01/15 10:13) rash Plastic tape Adverse Reaction (Uncoded 11/01/15 10:13) Blisters Past Medical History - Social History Chew tobacco use (# tins/day): No - 60 Frequency of alcohol use: None Drug Abuse: None - Past Medical History Cardiac Medical History: Denies: Hx Coronary Artery Disease, Hx Heart Attack, Hx Hypertension Pulmonary Medical History: Reports: Hx Asthma, Hx COPD - emphysema, Hx Pneumonia Denies: Hx Bronchitis Neurological Medical History: Denies: Hx Cerebrovascular Accident, Hx Seizures Renal/ Medical History: Denies: Hx Peritoneal Dialysis Malignancy Medical History: Reports: Hx Breast Cancer - Stage IV, mets to L5 and R & L posterior parietal skull. Musculoskeltal Medical History: Reports Hx Arthritis - generalized, Reports Hx Musculoskeletal Deformity, Reports Hx Musculoskeletal Trauma Psychiatric Medical History: Reports: Hx Anxiety Traumatic Medical History: Reports: Hx Fractures Past Surgical History: Reports: Hx Breast Surgery - Right lumpectomy x2 w/ axillary lymph node diseection., Hx Cholecystectomy, Hx Orthopedic Surgery - Left patellar reconstruction, Hx Tonsillectomy, Hx Tubal Ligation. Denies: Hx Hysterectomy - Immunizations Immunizations up to date: Yes Hx Diphtheria, Pertussis, Tetanus Vaccination: Yes Physical Exam - Vital signs Vitals: Temp Pulse Resp BP Pulse Ox 98.9 F 122 H 20 91/61 L 93 01/18/17 14:06 01/18/17 14:06 01/18/17 14:06 01/18/17 14:06 01/18/17 14:06 Course - Vital Signs Vital signs: Temp Pulse Resp BP Pulse Ox 98.9 F 122 H 20 91/61 L 93 01/18/17 14:06 01/18/17 14:06 01/18/17 14:06 01/18/17 14:06 01/18/17 14:06
--- NOTE | 2017-01-18 14:39 | ER Document Report ---
ED Dizziness/Weakness - General Chief Complaint: Weakness Stated Complaint: WEAKNESS Time Seen by Provider: 01/18/17 14:16 Mode of Arrival: Wheelchair Information source: Patient TRAVEL OUTSIDE OF THE [place] IN LAST 30 DAYS: No - HPI Patient complains to provider of: Weakness Onset: Other - SEVERAL DAYS Onset/Duration: Gradual Quality of pain: Dull Severity: Mild Context: Other - METASTATIC Ca OF BREAST. denies: Trauma Associated symptoms: Lightheaded, Nausea, Sweating, Other - CHILLS, ? FEVER Baseline gait: Walks w/o assistance - Related Data Allergies/Adverse Reactions: latex Allergy (Severe, Verified 11/01/15 10:13) blisters,rash morphine [Morphine] Allergy (Severe, Verified 11/01/15 10:13) short of breath Sulfa (Sulfonamide Antibiotics) Allergy (Intermediate, Verified 11/01/15 10:13) rash Plastic tape Adverse Reaction (Uncoded 11/01/15 10:13) Blisters Past Medical History - General Information source: Patient - Social History Smoking Status: Current Every Day Smoker Chew tobacco use (# tins/day): No - 60 Smoking Education Provided: No Frequency of alcohol use: None Drug Abuse: None Lives with: Family Family History: Reviewed & Not Pertinent - Past Medical History Cardiac Medical History: Reports: None Denies: Hx Coronary Artery Disease, Hx Heart Attack, Hx Hypertension Pulmonary Medical History: Reports: Hx Asthma, Hx COPD - emphysema, Hx Pneumonia Denies: Hx Bronchitis Neurological Medical History: Reports: None. Denies: Hx Cerebrovascular Accident, Hx Seizures Endocrine Medical History: Reports: None Renal/ Medical History: Reports: None. Denies: Hx Peritoneal Dialysis Malignancy Medical History: Reports: Hx Breast Cancer - Stage IV, mets to L5 and R & L posterior parietal skull. GI Medical History: Reports: None Musculoskeltal Medical History: Reports Hx Arthritis - generalized, Reports Hx Musculoskeletal Deformity, Reports Hx Musculoskeletal Trauma Psychiatric Medical History: Reports: Hx Anxiety Traumatic Medical History: Reports: Hx Fractures Past Surgical History: Reports: Hx Breast Surgery - Right lumpectomy x2 w/ axillary lymph node diseection., Hx Cholecystectomy, Hx Orthopedic Surgery - Left patellar reconstruction, Hx Tonsillectomy, Hx Tubal Ligation. Denies: Hx Hysterectomy - Immunizations Immunizations up to date: Yes Hx Diphtheria, Pertussis, Tetanus Vaccination: Yes Hx Pneumococcal Vaccination: 01/26/15 Review of Systems - Review of Systems Constitutional: Weakness EENT: No symptoms reported Cardiovascular: No symptoms reported Respiratory: Cough Gastrointestinal: Nausea, Poor appetite. denies: Vomiting Genitourinary: Other - OLIGURIA Female Genitourinary: No symptoms reported Musculoskeletal: No symptoms reported Skin: No symptoms reported Neurological/Psychological: See HPI Physical Exam - Vital signs Vitals: Temp Pulse Resp BP Pulse Ox 98.9 F 122 H 20 91/61 L 93 01/18/17 14:06 01/18/17 14:06 01/18/17 14:06 01/18/17 14:06 01/18/17 14:06 Interpretation: Hypotensive, Tachycardic. No: Tachypneic, Febrile - General General appearance: Appears well, Alert In distress: None - HEENT Head: Normocephalic Eyes: Normal Conjunctiva: Normal Ears: Normal Nasal: Normal Mouth/Lips: Normal Mucous membranes: Dry - MILDLY Pharynx: Normal Neck: Normal, Supple - Respiratory Respiratory status: No respiratory distress Breath sounds: Productive cough - Cardiovascular Rhythm: Regular, Tachycardia Heart sounds: Normal auscultation Murmur: No - Abdominal Inspection: Normal Distension: No distension - Back Back: Normal - Extremities General upper extremity: Normal inspection General lower extremity: Normal inspection. No: Edema - Neurological Neuro grossly intact: Yes Cognition: Normal Orientation: AAOx4 - Psychological Associated symptoms: Normal affect, Normal mood - Skin Skin Temperature: Warm Skin Moisture: Dry Skin Color: Normal Skin Turgor: Elastic Course - Vital Signs Vital signs: Temp Pulse Resp BP Pulse Ox 98.7 F 99 16 97/66 L 93 01/18/17 21:06 01/18/17 21:06 01/18/17 21:06 01/18/17 21:06 01/18/17 21:06 - Laboratory Result Diagrams: 01/18/17 15:00 01/18/17 15:00 Laboratory results interpreted by me: 01/18/17 01/18/17 01/18/17 15:00 15:00 16:41 WBC 2.7 L RBC 2.03 L Hgb 7.5 L Hct 21.5 L MCV 106 H MCH 37.2 H RDW 17.4 H Plt Count 44 L Band Neutrophils % 7 H Abs Neuts (Manual) 1.6 L Calcium 8.1 L AST 11 L Creatine Kinase < 20 L Total Protein 5.5 L Albumin 2.8 L Urine Protein Urine Urobilinogen Urine Ascorbic Acid Crossmatch See Detail 01/18/17 16:41 WBC RBC Hgb Hct MCV MCH RDW Plt Count Band Neutrophils % Abs Neuts (Manual) Calcium AST Creatine Kinase Total Protein Albumin Urine Protein 30 H Urine Urobilinogen 4.0 H Urine Ascorbic Acid 20 H Crossmatch - EKG Interpretation by Id EKG shows normal: Sinus rhythm, Aline, Intervals, QRS Complexes, ST-T Waves Rate: Tachycardia Discharge - Discharge Clinical Impression: Dehydration Anemia Qualifiers: Anemia type: unspecified type Qualified Code(s): D64.9 - Anemia, unspecified Acute bronchitis Qualifiers: Bronchitis organism: unspecified organism Qualified Code(s): J20.9 - Acute bronchitis, unspecified Breast cancer metastasized to multiple sites Qualifiers: Laterality: right Qualified Code(s): C50.911 - Malignant neoplasm of unspecified site of right female breast Condition: Stable Disposition: HOME, SELF-CARE Instructions: Dehydration ([facility]), Bronchitis ([facility]), Anemia ([facility]), Ciprofloxacin ([facility]) Additional Instructions: REST, DRINK PLENTY OF FLUIDS. MEDS DIRECTED. FOLLOW UP WITH OUR ONCOLOGIST, CALL FRIDAY FOR APPOINTMENT. Prescriptions: Ciprofloxacin HCl [Cipro 500 mg Tablet] 500 mg PO BID #20 tablet Referrals: CHADD ELIZABETH MD [Primary Care Provider] - Follow up as needed CRUZ COOK MD [ACTIVE STAFF] - Follow up as needed
--- NOTE | 2017-01-18 15:48 | RADIOLOGY REPORT (SQ) ---
EXAM DESCRIPTION: CHEST SINGLE VIEW COMPLETED DATE/TIME: 01/18/2017 3:38 pm REASON FOR STUDY: PRODUCTIVE COUGH, H/O METASTATIC Ca. COMPARISON: 09/02/2016. EXAM PARAMETERS: NUMBER OF VIEWS: One view. TECHNIQUE: Single frontal radiographic view of the chest acquired. RADIATION DOSE: NA LIMITATIONS: None. FINDINGS: LUNGS AND PLEURA: No opacities, masses or pneumothorax. No pleural effusion. MEDIASTINUM AND HILAR STRUCTURES: No masses. Contour normal. HEART AND VASCULAR STRUCTURES: Heart normal in size. Normal vasculature. BONES: No acute findings. HARDWARE: None in the chest. OTHER: No other significant finding. IMPRESSION: NO ACUTE RADIOGRAPHIC FINDING IN THE CHEST. TECHNICAL DOCUMENTATION: JOB ID: [id number]
[2017-01-18 15:49] LABS: ALANINE AMINOTRANSFERASE 19 U/L (9-52); ALBUMIN 2.8 g/dL (3.5-5.0); ALKALINE PHOSPHATASE 66 U/L (38-126); ANION GAP 6 (5-19); ASPARTATE AMINO TRANSFERASE 11 U/L (14-36); BILIRUBIN,DIRECT 0.4 mg/dL (0.0-0.4); BILIRUBIN,TOTAL 0.8 mg/dL (0.2-1.3); BLOOD UREA NITROGEN 11 mg/dL (7-20); CALCIUM 8.1 mg/dL (8.4-10.2); CARBON DIOXIDE 29 mmol/L (22-30); CHLORIDE 104 mmol/L (98-107); CREATINE KINASE < 20 U/L (30-135); GLUCOSE 87 mg/dL (75-110); HEMATOCRIT 21.5 % (36.0-47.0); MEAN CORPUSCULAR HEMOGLOBIN 37.2 pg (27.0-33.4); MEAN CORPUSCULAR HGB CONC 35.1 g/dL (32.0-36.0); MEAN CORPUSCULAR VOLUME 106 fl (80-97); POTASSIUM 4.2 mmol/L (3.6-5.0); RED BLOOD COUNT 2.03 10^6/uL (3.72-5.28); RED CELL DISTRIBUTION WIDTH 17.4 % (11.5-14.0); SODIUM 138.9 mmol/L (137-145); TOTAL PROTEIN 5.5 g/dL (6.3-8.2); WHITE BLOOD COUNT 2.7 10^3/uL (4.0-10.5)
[2017-01-18 16:01] LABS: ANISOCYTOSIS 1+; BAND NEUTROPHILS % (MANUAL) 7 % (3-5); BASOPHILS % (MANUAL) 1 % (0-2); EOSINOPHILS % (MANUAL) 4 % (0-6); HYPOCHROMASIA SLIGHT; LYMPHOCYTES % (MANUAL) 29 % (13-45); POLYCHROMASIA SLIGHT; TOTAL CELLS COUNTED 100
[2017-01-18 16:03] LABS: HEMOGLOBIN 7.5 g/dL (12.0-15.5)
[2017-01-18 16:04] LABS: CREATINE KINASE MB < 0.22 ng/mL (<4.55); TROPONIN I < 0.012 ng/mL
[2017-01-18] MEDS ORDERED: CEFEPIME 2 GM/D5W RTU 2 GM/50 ML RTUPB IV ONE (16:17)
[2017-01-18] MEDS ORDERED: NORMAL SALINE 250 ML IV PRN (16:31)
[2017-01-18 17:33] LABS: APPEARANCE,URINE CLEAR; BILIRUBIN,URINE NEGATIVE (NEGATIVE); GLUCOSE, URINE NEGATIVE (NEGATIVE); KETONES,URINE NEGATIVE (NEGATIVE); LEUKOCYTE ESTERASE,URINE NEGATIVE (NEGATIVE); NITRITE,URINE NEGATIVE (NEGATIVE); PROTEIN,URINE 30 mg/dL (NEGATIVE); URINE SPECIFIC GRAVITY 1.013
[2017-01-18 22:50] VITALS: BP 110/86
--- NOTE | 2017-01-18 23:17 | EKG REPORT ---
SEVERITY:- OTHERWISE NORMAL ECG - SINUS TACHYCARDIA : Confirmed by: Brittany Varma 18-Jan-2017 23:17:21
== END 2017-01-18 22:58 | disposition home or self-care (01) ==
LOC: ER 14:04
DX: C50.911 Malignant neoplasm of unspecified site of right female breast (principal); J20.9 Acute bronchitis, unspecified; E86.0 Dehydration; D64.9 Anemia, unspecified; R53.1 Weakness; F17.200 Nicotine dependence, unspecified, uncomplicated
CPT/HCPCS: 93005; 99285; 96361; 51701; 96365; 86900; 86901; 36415; 87040; 82553; 36430; 86850; 82550; 85025; 87077; 80053; 81001; 84484; 87186; 86920; 83605; 71010; 93010; P9016; J7030; J0692

== ENCOUNTER 2017-01-25 17:20 | Emergency (ER) | payer MEDICAID ==
[2017-01-25 17:26] VITALS: BP 110/69
[2017-01-25] MEDS ORDERED: NORMAL SALINE 1000 ML 1,000 ML IV ONE (18:25)
--- NOTE | 2017-01-25 18:32 | ER Document Report ---
ED Medical Screen (RME) - General Chief Complaint: Pain All Over Stated Complaint: MUSCLE CRAMPING Time Seen by Provider: 01/25/17 18:25 Mode of Arrival: Ambulatory Information source: Patient TRAVEL OUTSIDE OF THE [place] IN LAST 30 DAYS: No - HPI Patient complains to provider of: dehydration;leukopenia Onset: Other - pt. with metastatic breast ca with c/o decreased po intake and cramping over the past 1-2 days . Thinks she's dehydrated and has had a low WBC count. - Related Data Allergies/Adverse Reactions: latex Allergy (Severe, Verified 01/25/17 17:25) blisters,rash morphine [Morphine] Allergy (Severe, Verified 01/25/17 17:25) short of breath Sulfa (Sulfonamide Antibiotics) Allergy (Intermediate, Verified 01/25/17 17:25) rash Plastic tape Adverse Reaction (Uncoded 01/25/17 17:25) Blisters Past Medical History - Past Medical History Cardiac Medical History: Denies: Hx Coronary Artery Disease, Hx Heart Attack, Hx Hypertension Pulmonary Medical History: Reports: Hx Asthma, Hx COPD - emphysema, Hx Pneumonia Denies: Hx Bronchitis Neurological Medical History: Denies: Hx Cerebrovascular Accident, Hx Seizures Renal/ Medical History: Denies: Hx Peritoneal Dialysis Malignancy Medical History: Reports: Hx Breast Cancer - Stage IV, mets to L5 and R & L posterior parietal skull. Musculoskeltal Medical History: Reports Hx Arthritis - generalized, Reports Hx Musculoskeletal Deformity, Reports Hx Musculoskeletal Trauma Psychiatric Medical History: Reports: Hx Anxiety Traumatic Medical History: Reports: Hx Fractures Past Surgical History: Reports: Hx Breast Surgery - Right lumpectomy x2 w/ axillary lymph node diseection., Hx Cholecystectomy, Hx Orthopedic Surgery - Left patellar reconstruction, Hx Tonsillectomy, Hx Tubal Ligation. Denies: Hx Hysterectomy - Immunizations Immunizations up to date: Yes Hx Diphtheria, Pertussis, Tetanus Vaccination: Yes Physical Exam - Vital signs Vitals: Temp Pulse Resp BP Pulse Ox 98.2 F 111 H 22 H 110/69 94 01/25/17 17:26 01/25/17 17:26 01/25/17 17:26 01/25/17 17:26 01/25/17 17:26 Course - Vital Signs Vital signs: Temp Pulse Resp BP Pulse Ox 98.2 F 111 H 22 H 110/69 94 01/25/17 17:26 01/25/17 17:26 01/25/17 17:26 01/25/17 17:26 01/25/17 17:26
[2017-01-25 18:50] LABS: APPEARANCE,URINE CLEAR; BILIRUBIN,URINE NEGATIVE (NEGATIVE); GLUCOSE, URINE NEGATIVE (NEGATIVE); KETONES,URINE NEGATIVE (NEGATIVE); LEUKOCYTE ESTERASE,URINE NEGATIVE (NEGATIVE); NITRITE,URINE NEGATIVE (NEGATIVE); PROTEIN,URINE NEGATIVE (NEGATIVE); URINE SPECIFIC GRAVITY 1.009; UROBILINOGEN,URINE NEGATIVE mg/dL (<2.0)
--- NOTE | 2017-01-25 19:54 | ER Document Report ---
ED General - General Chief Complaint: Pain All Over Stated Complaint: MUSCLE CRAMPING Time Seen by Provider: 01/25/17 18:25 Mode of Arrival: Ambulatory Notes: Patient is a 51-year-old female with a history of end-stage breast cancer with metastasis to the bones that comes emergency department for chief complaint of decreased oral intake, for feeling dehydrated, muscle cramps, and a cough for 1 week. She denies fever, vomiting, diarrhea, abdominal pain, chest pain, headache. She sees Dr. Franco. She is on a fentanyl patch and takes 30 mg of oxycodone as needed. She states she is on Cipro for a cough and has been so for the past week. She still smokes. She states her white blood cell count is low and she keeps getting injections for this. She has not been on chemotherapy or radiation for some time, states there are no treatments that can help her. TRAVEL OUTSIDE OF THE [place] IN LAST 30 DAYS: No - Related Data Allergies/Adverse Reactions: latex Allergy (Severe, Verified 01/25/17 17:25) blisters,rash morphine [Morphine] Allergy (Severe, Verified 01/25/17 17:25) short of breath Sulfa (Sulfonamide Antibiotics) Allergy (Intermediate, Verified 01/25/17 17:25) rash Plastic tape Adverse Reaction (Uncoded 01/25/17 17:25) Blisters Past Medical History - General Information source: Patient - Social History Smoking Status: Current Every Day Smoker Chew tobacco use (# tins/day): No Frequency of alcohol use: None Drug Abuse: None Lives with: Alone Family History: Reviewed & Not Pertinent - Past Medical History Cardiac Medical History: Denies: Hx Coronary Artery Disease, Hx Heart Attack, Hx Hypertension Pulmonary Medical History: Reports: Hx Asthma, Hx COPD - emphysema, Hx Pneumonia Denies: Hx Bronchitis Neurological Medical History: Denies: Hx Cerebrovascular Accident, Hx Seizures Renal/ Medical History: Denies: Hx Peritoneal Dialysis Malignancy Medical History: Reports: Hx Breast Cancer - Stage IV, mets to L5 and R & L posterior parietal skull. Musculoskeltal Medical History: Reports Hx Arthritis - generalized, Reports Hx Musculoskeletal Deformity, Reports Hx Musculoskeletal Trauma Psychiatric Medical History: Reports: Hx Anxiety Traumatic Medical History: Reports: Hx Fractures Past Surgical History: Reports: Hx Breast Surgery - Right lumpectomy x2 w/ axillary lymph node diseection., Hx Cholecystectomy, Hx Orthopedic Surgery - Left patellar reconstruction, Hx Tonsillectomy, Hx Tubal Ligation. Denies: Hx Hysterectomy - Immunizations Immunizations up to date: Yes Hx Diphtheria, Pertussis, Tetanus Vaccination: Yes Hx Pneumococcal Vaccination: 01/26/15 Review of Systems - Review of Systems Constitutional: See HPI EENT: No symptoms reported Cardiovascular: No symptoms reported Respiratory: See HPI Gastrointestinal: See HPI Genitourinary: No symptoms reported Female Genitourinary: No symptoms reported Musculoskeletal: No symptoms reported Skin: No symptoms reported Hematologic/Lymphatic: No symptoms reported Neurological/Psychological: No symptoms reported Physical Exam - Vital signs Vitals: Temp Pulse Resp BP Pulse Ox 98.2 F 111 H 22 H 110/69 94 01/25/17 17:26 01/25/17 17:26 01/25/17 17:26 01/25/17 17:26 01/25/17 17:26 Interpretation: Normal - General General appearance: Appears well, Alert In distress: None - HEENT Head: Normocephalic, Atraumatic Eyes: Normal Pupils: PERRL - Respiratory Respiratory status: No respiratory distress. No: Tachypnea Chest status: Nontender Breath sounds: Normal, Nonproductive cough. No: Decreased air movement, Wheezing Chest palpation: Normal - Cardiovascular Rhythm: Regular. No: Tachycardia Heart sounds: Normal auscultation, S1 appreciated, S2 appreciated Murmur: No - Abdominal Inspection: Normal Distension: No distension Bowel sounds: Normal Tenderness: Nontender. No: Tender, Guarding Organomegaly: No organomegaly - Back Back: Normal, Nontender. No: Tender - Extremities General upper extremity: Normal inspection, Nontender, Normal ROM, Normal strength General lower extremity: Normal inspection, Nontender, Normal ROM, Normal strength - Neurological Neuro grossly intact: Yes Cognition: Normal Orientation: AAOx4 Franny Coma Scale Eye Opening: Spontaneous Mcnary Coma Scale Verbal: Oriented Mcnary Coma Scale Motor: Obeys Commands Mcnary Coma Scale Total: 15 Speech: Normal Motor strength normal: LUE, RUE, LLE, RLE Sensory: Normal - Psychological Associated symptoms: Normal affect, Normal mood - Skin Skin Temperature: Warm Skin Moisture: Dry Skin Color: Normal Course - Re-evaluation Re-evalutation: Patient is alert, animated, talkative, well-appearing. Soft abdomen, she does have clear lungs although she does have a fairly frequent cough. No tachypnea, labored breathing, hypoxia, hypotension, fever. Initial vital signs recorded showing anemia and tachycardia, however on my examination patient has neither of these, unfortunately repeat vital signs were not recorded in the system. Blood counts improved from prior with improved hemoglobin, improved leukopenia, elevating platelets. I showed this to patient, she asked for copy, she is very pleased with this. Chest x-ray unremarkable. Chemistry generally unremarkable. Patient was given initial bolus of IV fluids when she was requesting, afterwards she states she feels great and has no complaints. No other concerns on her examination. I offered to call patient's oncologist and update them and ask if they have any recommendations, patient declines, she states she will see them within 48 hours and she does not want me to. Patient asking to leave. Discussed return precautions. Patient states understanding and agreement. - Vital Signs Vital signs: Temp Pulse Resp BP Pulse Ox 98.2 F 111 H 22 H 110/69 94 01/25/17 17:26 01/25/17 17:26 01/25/17 17:26 01/25/17 17:26 01/25/17 17:26 - Laboratory Result Diagrams: 01/25/17 20:27 01/25/17 20:27 Laboratory results interpreted by me: 01/25/17 01/25/17 01/25/17 18:39 20:27 20:27 WBC 3.4 L RBC 2.80 L Hgb 10.3 L Hct 29.2 L MCV 104 H MCH 36.7 H RDW 21.8 H Plt Count 58 L Band Neutrophils % 7 H Sodium 136.5 L Calcium 8.3 L Total Protein 5.1 L Albumin 2.7 L Urine Ascorbic Acid 40 H Discharge - Discharge Clinical Impression: Shaking, Cough Anemia Qualifiers: Anemia type: unspecified type Qualified Code(s): D64.9 - Anemia, unspecified Leukopenia Qualifiers: Leukopenia type: unspecified Qualified Code(s): D72.819 - Decreased white blood cell count, unspecified Condition: Stable Disposition: HOME, SELF-CARE Additional Instructions: You have been given IV fluid rehydration. Your white blood cell count, red blood cell count, and platelets have all been improving. Follow-up with your oncologist in the next few days for additional monitoring and management. Return to emergency department for any concerning symptoms including fever, difficulty breathing, or any other concerning symptoms. Referrals: CHADD ELIZABETH MD [Primary Care Provider] - Follow up as needed
--- NOTE | 2017-01-25 20:23 | RADIOLOGY REPORT (SQ) ---
EXAM DESCRIPTION: CHEST PA/LAT COMPLETED DATE/TIME: 01/25/2017 8:10 pm REASON FOR STUDY: productive cough x 1 week COMPARISON: 09/02/2016 EXAM PARAMETERS: NUMBER OF VIEWS: two views TECHNIQUE: Digital Frontal and Lateral radiographic views of the chest acquired. RADIATION DOSE: NA LIMITATIONS: none FINDINGS: LUNGS AND PLEURA: Stable pulmonary exam again demonstrating fibrosis/scarring. No new foc al opacities, masses or pneumothorax. No pleural effusion. MEDIASTINUM AND HILAR STRUCTURES: No masses or contour abnormalities. HEART AND VASCULAR STRUCTURES: Heart normal size. No evidence for failure. BONES: No acute findings. HARDWARE: A left anterior chest wall Port-A-Cath terminates in the region of the superior vena cava. OTHER: No other significant finding. IMPRESSION: Stable radiographic appearance of the chest. No evidence of acute cardiopulmonary proce ss. TECHNICAL DOCUMENTATION: JOB ID: [id number] [employer]- All Rights Reserved
[2017-01-25 20:38] LABS: HEMATOCRIT 29.2 % (36.0-47.0); HEMOGLOBIN 10.3 g/dL (12.0-15.5); HGB HCT DIFFERENCE 1.7; MEAN CORPUSCULAR HEMOGLOBIN 36.7 pg (27.0-33.4); MEAN CORPUSCULAR HGB CONC 35.2 g/dL (32.0-36.0); MEAN CORPUSCULAR VOLUME 104 fl (80-97); RED CELL DISTRIBUTION WIDTH 21.8 % (11.5-14.0); WHITE BLOOD COUNT 3.4 10^3/uL (4.0-10.5)
[2017-01-25 20:52] LABS: ALANINE AMINOTRANSFERASE 20 U/L (9-52); ALBUMIN 2.7 g/dL (3.5-5.0); ALKALINE PHOSPHATASE 83 U/L (38-126); ANION GAP 9 (5-19); ASPARTATE AMINO TRANSFERASE 14 U/L (14-36); BILIRUBIN,DIRECT 0.4 mg/dL (0.0-0.4); BILIRUBIN,TOTAL 0.5 mg/dL (0.2-1.3); BLOOD UREA NITROGEN 13 mg/dL (7-20); CALCIUM 8.3 mg/dL (8.4-10.2); CARBON DIOXIDE 27 mmol/L (22-30); CHLORIDE 101 mmol/L (98-107); GLUCOSE 91 mg/dL (75-110); POTASSIUM 4.2 mmol/L (3.6-5.0); SODIUM 136.5 mmol/L (137-145); TOTAL PROTEIN 5.1 g/dL (6.3-8.2)
[2017-01-25 21:52] LABS: BAND NEUTROPHILS % (MANUAL) 7 % (3-5); BASOPHILS % (MANUAL) 0 % (0-2); EOSINOPHILS % (MANUAL) 5 % (0-6); LYMPHOCYTES % (MANUAL) 17 % (13-45); TOTAL CELLS COUNTED 100
[2017-01-25 21:55] LABS: ANISOCYTOSIS 3+; OVALOCYTES SLIGHT; POIKILOCYTOSIS SLIGHT; POLYCHROMASIA 1+; TOXIC GRANULATION 1+
== END 2017-01-25 22:34 | disposition home or self-care (01) ==
LOC: ER 17:20
DX: R25.8 Other abnormal involuntary movements (principal); R05 Cough; D64.9 Anemia, unspecified; D72.819 Decreased white blood cell count, unspecified; M79.1 Myalgia; F17.200 Nicotine dependence, unspecified, uncomplicated; C50.919 Malignant neoplasm of unspecified site of unspecified female breast; C79.51 Secondary malignant neoplasm of bone; J44.9 Chronic obstructive pulmonary disease, unspecified; J45.909 Unspecified asthma, uncomplicated; Z91.040 Latex allergy status; Z88.6 Allergy status to analgesic agent; Z88.2 Allergy status to sulfonamides; Z90.49 Acquired absence of other specified parts of digestive tract
CPT/HCPCS: 36591; 99284; 36415; 82962; 85025; 80053; 81001; 71020; J7030

== ENCOUNTER 2017-02-13 20:33 | Emergency (ER) | payer MEDICAID ==
[2017-02-13] MEDS ORDERED: IPRATROPIUM/ALBUTEROL 0.5-2.5 MG/3 ML AMPUL NEB ONE (22:29)
--- NOTE | 2017-02-13 22:35 | ER Document Report ---
ED General - General Chief Complaint: Cough Stated Complaint: FEVER Time Seen by Provider: 02/13/17 22:22 Notes: Patient is a 51-year-old female has a history of breast cancer metastasis who presents with complaint of cough and congestion. She says she has had fevers at home. I asked her what her maximum temperature at home was. She said it was 99.9. She went to her cancer doctor today. She had blood work done. She did bring the results of her CBC. Her white blood cell count is 1.2. Her neutrophil percent is 69.9. Her hemoglobin is 8-1/2. Her platelets are 30. She was told that she does not need transfusion at this time but may eventually need one in the future. She is a follow-up appoint with her cancer doctor in 1 week. Patient says that she was unhappy that she did not receive a transfusion and that she is still coughing and therefore she came here. She denies any recent bleeding. She has no other complaints at this time. TRAVEL OUTSIDE OF THE [place] IN LAST 30 DAYS: No - Related Data Allergies/Adverse Reactions: latex Allergy (Severe, Verified 01/25/17 17:25) blisters,rash morphine [Morphine] Allergy (Severe, Verified 01/25/17 17:25) short of breath Sulfa (Sulfonamide Antibiotics) Allergy (Intermediate, Verified 01/25/17 17:25) rash Plastic tape Adverse Reaction (Uncoded 01/25/17 17:25) Blisters Past Medical History - Social History Smoking Status: Current Every Day Smoker Frequency of alcohol use: None Drug Abuse: None Family History: Reviewed & Not Pertinent Patient has suicidal ideation: No Patient has homicidal ideation: No - Past Medical History Cardiac Medical History: Denies: Hx Coronary Artery Disease, Hx Heart Attack, Hx Hypertension Pulmonary Medical History: Reports: Hx Asthma, Hx COPD - emphysema, Hx Pneumonia Denies: Hx Bronchitis Neurological Medical History: Denies: Hx Cerebrovascular Accident, Hx Seizures Renal/ Medical History: Denies: Hx Peritoneal Dialysis Malignancy Medical History: Reports: Hx Breast Cancer - Stage IV, mets to L5 and R & L posterior parietal skull. Musculoskeltal Medical History: Reports Hx Arthritis - generalized, Reports Hx Musculoskeletal Deformity, Reports Hx Musculoskeletal Trauma Psychiatric Medical History: Reports: Hx Anxiety Traumatic Medical History: Reports: Hx Fractures Past Surgical History: Reports: Hx Breast Surgery - Right lumpectomy x2 w/ axillary lymph node diseection., Hx Cholecystectomy, Hx Orthopedic Surgery - Left patellar reconstruction, Hx Tonsillectomy, Hx Tubal Ligation. Denies: Hx Hysterectomy - Immunizations Immunizations up to date: Yes Hx Diphtheria, Pertussis, Tetanus Vaccination: Yes Hx Pneumococcal Vaccination: 01/26/15 Review of Systems - Review of Systems Notes: My Normal Review Basic REVIEW OF SYSTEMS: CONSTITUTIONAL : TMax of 99.9 EENT: Denies eye, ear, throat, or mouth pain or symptoms. Denies nasal or sinus congestion. CARDIOVASCULAR: Denies chest pain. RESPIRATORY: Cough GASTROINTESTINAL: Denies abdominal pain. Denies nausea, vomiting, or diarrhea. Denies constipation. Last BM: MUSCULOSKELETAL: Denies neck or back pain or joint pain or swelling. SKIN: Denies rash or skin lesions. NEUROLOGICAL: Denies altered mental status or loss of consciousness. Denies headache. Denies weakness or paralysis or loss of use of either side. Denies problems with gait or speech. Denies sensory or motor loss. ALL OTHER SYSTEMS REVIEWED AND NEGATIVE. Physical Exam - Vital signs Vitals: Temp Pulse Resp BP Pulse Ox 98.0 F 105 H 20 110/57 L 96 02/13/17 21:37 02/13/17 21:37 02/13/17 21:37 02/13/17 21:37 02/13/17 21:37 - Notes Notes: General Appearance: Well nourished, alert, cooperative, no acute distress, no obvious discomfort. Well-appearing. Vitals: reviewed, See vital signs table. Head: no swelling or tenderness to the head Eyes: PERRL, EOMI, Conjuctiva clear Mouth: No decreasd moisture Neck: Supple, no neck tenderness, No thyromegaly Lungs: Slight wheezing in bases., No rales, No rhonci, No accessory muscle use, good air exchange bilaterally. Heart: Normal rate, Regular rythm, No murmur, no rub Abdomen: Normal BS, soft, No rigidity, No abdominal tenderness, No guarding, no rebound, no abdominal masses, no organomegaly Extremities: strength 5/5 in all extremities, good pulses in all extremities, no swelling or tenderness in the extremities, no edema. Skin: warm, dry, appropriate color, no rash Neuro: speech clear, oriented x 3, normal affect, responds appropriately to questions. Course - Re-evaluation Re-evalutation: 02/14/17 05:31 On exam patient looks very well. I explained to her why she does not need a blood transfusion with a hemoglobin of 8.5. Her platelets are 30 but she has no bleeding. She has no fever. She has no pneumonia on chest x-ray. Her lung welsh had just very slight wheezing I gave her breathing treatment this resolve them. I encouraged her to quit smoking. Her ANC is 700. At this time I told her that the plan to follow-up with her oncologist early this week as scheduled as appropriate. I informed her that she should return to ER immediately if she does have temp over 100.6, any difficulty breathing. Any vomiting, or if she feels that she is worsening in any way. Patient agrees with plan and will be discharged home. Dictation of this chart was performed using voice recognition software; therefore, there may be some unintended grammatical errors. - Vital Signs Vital signs: Temp Pulse Resp BP Pulse Ox 98.6 F 101 H 20 113/64 96 02/13/17 22:36 02/13/17 22:36 02/13/17 22:36 02/13/17 22:36 02/13/17 22:36 Discharge - Discharge Clinical Impression: Cough, Thrombocytopenia Neutropenia Qualifiers: Neutropenia type: unspecified Qualified Code(s): D70.9 - Neutropenia, unspecified Anemia Qualifiers: Anemia type: unspecified type Qualified Code(s): D64.9 - Anemia, unspecified Condition: Good Disposition: HOME, SELF-CARE Additional Instructions: Please follow up with your oncologist (cancer doctor) this coming week as scheduled. Please return to the ER immediately if you have a temp of 100.4 or above, difficulty breathing, or if you feel unwell. Please discuss your leg swelling with your doctor again.
[2017-02-13 22:38] VITALS: BP 113/64
--- NOTE | 2017-02-13 23:11 | RADIOLOGY REPORT (SQ) ---
EXAM DESCRIPTION: CHEST PA/LAT COMPLETED DATE/TIME: 02/13/2017 10:39 pm REASON FOR STUDY: cough COMPARISON: 01/25/2017 EXAM PARAMETERS: NUMBER OF VIEWS: two views TECHNIQUE: Digital Frontal and Lateral radiographic views of the chest acquired. RADIATION DOSE: NA LIMITATIONS: none FINDINGS: LUNGS AND PLEURA: No opacities, masses or pneumothorax. No pleural effusion. There is a m ild nonspecific prominence of the interstitial markings. I cannot exclude a component of obstructive lung disease. MEDIASTINUM AND HILAR STRUCTURES: No masses or contour abnormalities. HEART AND VASCULAR STRUCTURES: Heart normal size. No evidence for failure. BONES: No acute findings. HARDWARE: Port-A-Cath is unchanged in position. OTHER: No other significant finding. IMPRESSION: No significant interval change. No acute findings. Other findings as noted above TECHNICAL DOCUMENTATION: JOB ID: [id number] [employer]- All Rights Reserved
== END 2017-02-13 23:57 | disposition home or self-care (01) ==
LOC: ER 20:33
DX: R05 Cough (principal); D64.9 Anemia, unspecified; D70.9 Neutropenia, unspecified; D69.6 Thrombocytopenia, unspecified; R50.9 Fever, unspecified; Z85.3 Personal history of malignant neoplasm of breast; R09.81 Nasal congestion; F17.200 Nicotine dependence, unspecified, uncomplicated
CPT/HCPCS: 94640; 99283; 71020; J7620

== ENCOUNTER 2017-02-28 00:10 | Emergency (ER) | payer MEDICAID ==
[2017-02-28] MEDS ORDERED: IPRATROPIUM/ALBUTEROL 0.5-2.5 MG/3 ML AMPUL NEB ONE ×2 (01:38→04:28)
--- NOTE | 2017-02-28 01:41 | ER Document Report ---
ED General - General Chief Complaint: Chest Pain Stated Complaint: CHEST PAIN AND RIGHT ANKLE PAIN Time Seen by Provider: 02/28/17 01:30 Notes: Patient is a 51-year-old female with stage IV breast cancer who is currently not on chemotherapy who presents with some difficulty breathing, intermittent chest pain left side of her chest, and right leg swelling. She went through her primary care doctor today. They did a chest x-ray which was negative. No workup for the right leg swelling. She is followed by Dr. Sylvester for her cancer. She denies any recent fevers. No vomiting. No abdominal pain. No blood transfusions in the last 2 weeks. No other complaints at this time. She says the leg edema just started in the last 24 hours. TRAVEL OUTSIDE OF THE [place] IN LAST 30 DAYS: No - Related Data Allergies/Adverse Reactions: latex Allergy (Severe, Verified 01/25/17 17:25) blisters,rash morphine [Morphine] Allergy (Severe, Verified 01/25/17 17:25) short of breath Sulfa (Sulfonamide Antibiotics) Allergy (Intermediate, Verified 01/25/17 17:25) rash Plastic tape Adverse Reaction (Uncoded 01/25/17 17:25) Blisters Past Medical History - Social History Smoking Status: Current Every Day Smoker Frequency of alcohol use: None Drug Abuse: None Family History: Reviewed & Not Pertinent Patient has suicidal ideation: No Patient has homicidal ideation: No - Past Medical History Cardiac Medical History: Denies: Hx Coronary Artery Disease, Hx Heart Attack, Hx Hypertension Pulmonary Medical History: Reports: Hx Asthma, Hx COPD - emphysema, Hx Pneumonia Denies: Hx Bronchitis Neurological Medical History: Denies: Hx Cerebrovascular Accident, Hx Seizures Renal/ Medical History: Denies: Hx Peritoneal Dialysis Malignancy Medical History: Reports: Hx Breast Cancer - Stage IV, mets to L5 and R & L posterior parietal skull. Musculoskeltal Medical History: Reports Hx Arthritis - generalized, Reports Hx Musculoskeletal Deformity, Reports Hx Musculoskeletal Trauma Psychiatric Medical History: Reports: Hx Anxiety Traumatic Medical History: Reports: Hx Fractures Past Surgical History: Reports: Hx Breast Surgery - Right lumpectomy x2 w/ axillary lymph node diseection., Hx Cholecystectomy, Hx Orthopedic Surgery - Left patellar reconstruction, Hx Tonsillectomy, Hx Tubal Ligation. Denies: Hx Hysterectomy - Immunizations Immunizations up to date: Yes Hx Diphtheria, Pertussis, Tetanus Vaccination: Yes Hx Pneumococcal Vaccination: 01/26/15 Review of Systems - Review of Systems Notes: My Normal Review Basic REVIEW OF SYSTEMS: CONSTITUTIONAL : Denies fever, chills, or sweats. Denies recent illness. EENT: Denies eye, ear, throat, or mouth pain or symptoms. Denies nasal or sinus congestion. CARDIOVASCULAR: Chest pain RESPIRATORY: Difficulty breathing. GASTROINTESTINAL: Denies abdominal pain. Denies nausea, vomiting, or diarrhea. Denies constipation. Last BM: MUSCULOSKELETAL: Denies neck or back pain or joint pain or swelling. SKIN: Denies rash or skin lesions. HEMATOLOGIC : Has history of thrombocytopenia. NEUROLOGICAL: Denies altered mental status or loss of consciousness. Denies headache. Denies weakness or paralysis or loss of use of either side. Denies problems with gait or speech. Denies sensory or motor loss. ALL OTHER SYSTEMS REVIEWED AND NEGATIVE. Physical Exam - Vital signs Vitals: Temp Pulse Resp BP Pulse Ox 98.4 F 105 H 30 H 99/61 L 90 L 02/28/17 00:47 02/28/17 00:47 02/28/17 00:47 02/28/17 00:47 02/28/17 00:47 - Notes Notes: General Appearance: Well nourished, alert, cooperative, no acute distress, no obvious discomfort. Vitals: reviewed, See vital signs table. Head: no swelling or tenderness to the head Eyes: PERRL, EOMI, Conjuctiva clear Mouth: No decreasd moisture Throat: No tonsillar inflammation, No airway obstruction, No lymphadenopathy Neck: Supple, no neck tenderness, Lungs: Scattered wheezing, No rales, No rhonci, No accessory muscle use, good air exchange bilaterally. Heart: Tachycardic rate, Regular rythm, No murmur, no rub Abdomen: Normal BS, soft, No rigidity, No abdominal tenderness, No guarding, no rebound, no abdominal masses, no organomegaly Extremities: strength 5/5 in all extremities, good pulses in all extremities, no swelling or tenderness in the extremities, 2+ edema in the right lower extremity. Skin: warm, dry, appropriate color, no rash Neuro: speech clear, oriented x 3, normal affect, responds appropriately to questions. Course - Re-evaluation Re-evalutation: 02/28/17 03:29 Patient's oxygenation was trending down to the mid 80s and therefore I placed her on 2 L of oxygen. I listened to her lungs again. Her wheezing is improved. I will obtain a CTA of her chest. 02/28/17 05:08 CT of her chest was negative for PE or infection. Patient's still has some desaturations if she is not on the 2 L oxygen. Her lung welsh really did not have much wheezing left. I did talked her length and encourage her to stay in the hospital as I informed her she will not do well and probably will have worsening difficulty breathing and possibly if she leaves the hospital being that she is hypoxic off oxygen. Patient also has some tachycardia. Patient says she understands this but says she cannot stay in the hospital because she has dogs that she has to take care of her home. Also informed her that she needs ultrasound of her leg being that her edema is much worse than usual. She has had ultrasounds for DVTs in the past that were negative however states that this is a worse her legs ever been and she does have cancer and therefore she is at high risk for DVT. Patient refuses to stay even this morning to have the ultrasound performed. She does agree for me to write her prescription for an ultrasound to be performed. I encourage her to return to ER anytime. Patient is awake and alert and oriented and has a right mindset we will make her own decisions and therefore cannot hold her against her will. I did call her oncologist, Dr. Sylvester, and informed him of the situation and he is understanding of it. I encouraged her to call Dr. Adeel Gaston for close follow- up and informed her that he is aware of what is going on. Patient appreciates this and has no further concerns at this time. Patient agrees to return to ER if she feels that she is getting worse. Patient is again encouraged to return to ER anytime as we are happy to care for her. Dictation of this chart was performed using voice recognition software; therefore, there may be some unintended grammatical errors. - Vital Signs Vital signs: Temp Pulse Resp BP Pulse Ox 98.4 F 105 H 21 H 106/66 95 02/28/17 00:47 02/28/17 00:47 02/28/17 02:03 02/28/17 02:03 02/28/17 02:03 - Laboratory Result Diagrams: 02/28/17 02:07 02/28/17 02:07 Laboratory results interpreted by me: 02/28/17 02/28/17 02:07 02:07 WBC 2.9 L RBC 2.10 L Hgb 8.4 L Hct 24.4 L MCV 116 H MCH 39.8 H RDW 27.1 H Plt Count 72 L Metamyelocytes % 2 H Myelocytes % 2 H Promyelocytes % 2 H Immature Leukocytes % 1 H Chloride 109 H Calcium 8.2 L Alkaline Phosphatase 260 H Creatine Kinase < 20 L Total Protein 5.6 L Albumin 2.9 L Discharge - Discharge Clinical Impression: Hypoxemia, Tachycardia, Leg swelling Condition: Serious Additional Instructions: You have decided to sign out against medical advice. We respect your right to leave, but I am very concerned that your oxygen continues to drop and with your leg swelling. As discussed with you I strongly recommend you stay in the hospital because of your low oxygen saturation. Leaving the hospital and being off oxygen can make your condition worse and lead to . Please feel free to return to the ER at anytime. We are happy to take car of you at any time. Also, I have called and spoken with Dr. Sylvester and made him aware of the situation. please call his office to follow up closely. I have written a prescription to have an ultrasound of your leg. please have the ultrasound performed to rule out a DVT. Again, please return to the ER at anytime so that we can help you. Forms: Follow-Up Outpatient Testing
[2017-02-28 02:23] LABS: VENOUS BLOOD BASE EXCESS 0.1 mmol/L; VENOUS BLOOD PCO2 41.6 mmHg (35-63); VENOUS BLOOD PH 7.4 (7.30-7.42)
[2017-02-28 02:26] LABS: HEMATOCRIT 24.4 % (36.0-47.0); HEMOGLOBIN 8.4 g/dL (12.0-15.5); HGB HCT DIFFERENCE 0.8; MEAN CORPUSCULAR HEMOGLOBIN 39.8 pg (27.0-33.4); MEAN CORPUSCULAR HGB CONC 34.3 g/dL (32.0-36.0); RED CELL DISTRIBUTION WIDTH 27.1 % (11.5-14.0); WHITE BLOOD COUNT 2.9 10^3/uL (4.0-10.5)
[2017-02-28 02:35] LABS: ALANINE AMINOTRANSFERASE 25 U/L (9-52); ALBUMIN 2.9 g/dL (3.5-5.0); ALKALINE PHOSPHATASE 260 U/L (38-126); ANION GAP 7 (5-19); ASPARTATE AMINO TRANSFERASE 19 U/L (14-36); BILIRUBIN,DIRECT 0.4 mg/dL (0.0-0.4); BILIRUBIN,TOTAL 0.7 mg/dL (0.2-1.3); BLOOD UREA NITROGEN 9 mg/dL (7-20); CALCIUM 8.2 mg/dL (8.4-10.2); CARBON DIOXIDE 28 mmol/L (22-30); CHLORIDE 109 mmol/L (98-107); CREATININE RESULT 0.78 mg/dL (0.52-1.25); GLUCOSE 96 mg/dL (75-110); POTASSIUM 4.1 mmol/L (3.6-5.0); SODIUM 143.8 mmol/L (137-145); TOTAL PROTEIN 5.6 g/dL (6.3-8.2)
[2017-02-28 02:37] LABS: CREATINE KINASE < 20 U/L (30-135)
[2017-02-28 02:39] LABS: PROTHROMBIN TIME 13.1 SEC (11.4-15.4)
[2017-02-28 02:49] LABS: CREATINE KINASE MB < 0.22 ng/mL (<4.55); TROPONIN I < 0.012 ng/mL
[2017-02-28 02:58] LABS: BAND NEUTROPHILS % (MANUAL) 5 % (3-5); BASOPHILS % (MANUAL) 1 % (0-2); EOSINOPHILS % (MANUAL) 0 % (0-6); LYMPHOCYTES % (MANUAL) 30 % (13-45); TOTAL CELLS COUNTED 100
[2017-02-28 03:04] LABS: TOXIC GRANULATION 1+; TOXIC VACUOLATION PRESENT
[2017-02-28 03:05] LABS: ANISOCYTOSIS 3+; OVALOCYTES SLIGHT; POIKILOCYTOSIS SLIGHT; POLYCHROMASIA 1+; TARGET CELLS SLIGHT; TEAR DROP CELLS SLIGHT
[2017-02-28 03:07] LABS: MEAN CORPUSCULAR VOLUME 116 fl (80-97)
[2017-02-28] MEDS ORDERED: NORMAL SALINE 1000 ML 1,000 ML IV ONE (03:26)
--- NOTE | 2017-02-28 03:27 | RADIOLOGY REPORT (SQ) ---
EXAM DESCRIPTION: CHEST PA/LAT COMPLETED DATE/TIME: 02/28/2017 3:00 am REASON FOR STUDY: POSSIBLE SEPSIS COMPARISON: 02/13/2017. EXAM PARAMETERS: NUMBER OF VIEWS: two views TECHNIQUE: Digital Frontal and Lateral radiographic views of the chest acquired. RADIATION DOSE: NA LIMITATIONS: none FINDINGS: LUNGS AND PLEURA: Mild chronic interstitial markings. Mild emphysematous hyperinflation. MEDIASTINUM AND HILAR STRUCTURES: No masses or contour abnormalities. HEART AND VASCULAR STRUCTURES: Heart normal size. No evidence for failure. BONES: No acute findings. HARDWARE: Left subclavian mini port appears adequate. OTHER: No other significant finding. IMPRESSION: No acute cardiopulmonary findings. TECHNICAL DOCUMENTATION: JOB ID: [id number] [employer]- All Rights Reserved
--- NOTE | 2017-02-28 04:24 | RADIOLOGY REPORT (SQ) ---
EXAM DESCRIPTION: CTA CHEST COMPLETED DATE/TIME: 02/28/2017 3:59 am REASON FOR STUDY: dyspnea COMPARISON: 10/21/2016. 07/09/2016. TECHNIQUE: CT scan of the chest performed using helical scanning technique with dynamic intravenous contrast injection. Images reviewed with lung, soft tissue and bone windows. Reconstructed coronal and sagittal MPR images reviewed. Additional 3 dimensional post-processing performed to develop Maximal Intensity Projection images ([place] P). All images stored on PACS. All CT scanners at this facility use dose modulation, iterative reconstruction, and/or weight based d osing when appropriate to reduce radiation dose to as low as reasonably achievable (ALARA). [facility]: Dose Right [facility]: CareDose [facility]: Dose Right [facility]: Teradose 4D [facility]: Panraven CONTRAST TYPE AND DOSE: contrast/concentration: Isovue 370.00 mg/ml; Total Contrast Delivered: 100.0 ml; Total Saline Delivered: 55.0 ml Contrast bolus optimized for the pulmonary arteries. Not diagnostic for the aorta. RENAL FUNCTION: Creatinine 0.8 RADIATION DOSE: Up-to-date CT equipment and radiation dose reduction techniques were employed. CTDIv ol: 19.8 mGy. DLP: 674 mGy-cm. . LIMITATIONS: None. FINDINGS: LUNGS AND PLEURA: No masses, infiltrates, pneumothorax. No pleural effusions, calcificati ons. Bkdo-hz-lpyxusyb paraseptal emphysema. Mild interstitial markings. Small lingular atelectasis or scar. Small bibasilar atelectasis or scar. AORTA AND GREAT VESSELS: No aneurysm. Contrast bolus not optimized for the aorta. HEART: No pericardial effusion. No significant coronary artery calcifications. PULMONARY ARTERIES: No emboli visualized in the main pulmonary arteries or the segmental branches. HILAR AND MEDIASTINAL STRUCTURES: No identified masses or abnormal nodes. HARDWARE: Left subclavian central line tip at the cavoatrial junction. UPPER ABDOMEN: Mild chronic prominence of intrahepatic ducts, prior cholecystectomy, stable compared with prior exam, 10/21/2016. Limited exam. THYROID AND OTHER SOFT TISSUES: No masses. No adenopathy. BONES: Increased sclerotic lesions at the T6, T10, and T11 vertebral bodies, compared with prior exam , 10/21/2016 and 07/09/2016. Mild T6 anterior vertebral wedging. OTHER: No other significant finding. IMPRESSION: 1. Increased sclerotic lesions of the mid and lower thoracic spine may worsened metasta tic disease. 2. No acute cardiopulmonary findings. No evidence of pulmonary emboli. Innd-fu-showc ate paraseptal emphysema. COMMENT: Quality ID # [id number]: Final reports with documentation of one or more dose reduction techniques (e.g., Automated exposure control, adjustment of the mA and/or kV according to patient size, use of iterative reconstruction technique) TECHNICAL DOCUMENTATION: JOB ID: [id number] [employer]- All Rights Reserved
[2017-02-28] MEDS ORDERED: METHYLPREDNISOLONE INJ 125 MG/2 ML SDV IV ONE (04:28)
[2017-02-28 06:14] VITALS: BP 107/56
--- NOTE | 2017-02-28 08:14 | EKG REPORT ---
SEVERITY:- NORMAL ECG - SINUS RHYTHM : Confirmed by: Seamus Rodriguez MD 28-Feb-2017 08:13:11
== END 2017-02-28 06:14 | disposition left against medical advice (07) ==
LOC: ER 00:10
DX: R09.02 Hypoxemia (principal); R00.0 Tachycardia, unspecified; M79.89 Other specified soft tissue disorders; R07.9 Chest pain, unspecified; M25.571 Pain in right ankle and joints of right foot; C50.919 Malignant neoplasm of unspecified site of unspecified female breast; F17.200 Nicotine dependence, unspecified, uncomplicated; Z91.040 Latex allergy status; Z88.6 Allergy status to analgesic agent; Z88.2 Allergy status to sulfonamides; Z90.49 Acquired absence of other specified parts of digestive tract; Z98.51 Tubal ligation status
CPT/HCPCS: 93005; 36591; 94640 ×2; 99285; 96361; 96374; 36415; 82553; 82550; 85025; 85610; 80053; 84484; 82803; 71020; 71275; 93010; J2930; J7030; J7620

== ENCOUNTER → 2017-03-05 | Outpatient (CLI) | payer MEDICAID ==
[2017-03-05 13:47] LABS: HEMATOCRIT 28.4 % (36.0-47.0); HEMOGLOBIN 10.1 g/dL (12.0-15.5); HGB HCT DIFFERENCE 1.9; MEAN CORPUSCULAR HEMOGLOBIN 40.7 pg (27.0-33.4); MEAN CORPUSCULAR HGB CONC 35.4 g/dL (32.0-36.0); MEAN CORPUSCULAR VOLUME 115 fl (80-97); RED BLOOD COUNT 2.47 10^6/uL (3.72-5.28); RED CELL DISTRIBUTION WIDTH 24.4 % (11.5-14.0); WHITE BLOOD COUNT 3.5 10^3/uL (4.0-10.5)
[2017-03-05 14:18] LABS: ALANINE AMINOTRANSFERASE 26 U/L (9-52); ALBUMIN 3.2 g/dL (3.5-5.0); ALKALINE PHOSPHATASE 262 U/L (38-126); ANION GAP 8 (5-19); ASPARTATE AMINO TRANSFERASE 22 U/L (14-36); BILIRUBIN,DIRECT 0.3 mg/dL (0.0-0.4); BILIRUBIN,TOTAL 0.6 mg/dL (0.2-1.3); BLOOD UREA NITROGEN 16 mg/dL (7-20); CALCIUM 7.4 mg/dL (8.4-10.2); CARBON DIOXIDE 26 mmol/L (22-30); CHLORIDE 107 mmol/L (98-107); CREATININE RESULT 0.88 mg/dL (0.52-1.25); GLUCOSE 92 mg/dL (75-110); POTASSIUM 4.3 mmol/L (3.6-5.0); SODIUM 140.5 mmol/L (137-145); TOTAL PROTEIN 5.7 g/dL (6.3-8.2)
[2017-03-05 14:58] LABS: BASOPHILS % (MANUAL) 0 % (0-2); EOSINOPHILS % (MANUAL) 1 % (0-6); LYMPHOCYTES % (MANUAL) 11 % (13-45); POLYCHROMASIA 1+; TOTAL CELLS COUNTED 100
[2017-03-05 14:59] LABS: ANISOCYTOSIS 3+; OVALOCYTES SLIGHT; POIKILOCYTOSIS SLIGHT; TOXIC GRANULATION SLIGHT
[2017-03-06 12:38] LABS: ABSOLUTE CD 4 HELPER 152 /uL (359-1519); CD BASOPHILS 0 % (Not Estab.); CD EOSINOPHILS 2 % (Not Estab.); CD MONOCYTES 6 % (Not Estab.); CD NEUTROPHILS 78 % (Not Estab.); HEMATOCRIT . 28.1 % (34.0-46.6); HEMOGLOBIN 9.6 g/dL (11.1-15.9); IMMATURE GRANULOCYTES 0 % (Not Estab.); LYMPHS(ABSOLUTE) 0.5 x10E3/uL (0.7-3.1); MCH 38.1 pg (26.6-33.0); MCHC 34.2 g/dL (31.5-35.7); MCV 112 fL (79-97); NEUTROPHILS(ABSOLUTE) 2.8 x10E3/uL (1.4-7.0); PLATELETS 155 x10E3/uL (150-379); RDW 22.4 % (12.3-15.4); WBC 3.6 x10E3/uL (3.4-10.8)
[2017-03-06 13:31] LABS: HEMATOLOGY COMMENTS Note: (.); RBC 2.52 x10E6/uL (3.77-5.28)
[2017-03-07 07:25] LABS: HIV-1 RNA LOG10.. 1.778 (.); HIV-1 RNA PCR QUANT 60 copies/mL (.)
== END ==
LOC: LAB 13:21
PROVIDERS: ATTEND Nurse Practitioner
DX: B20 Human immunodeficiency virus [HIV] disease (principal)
CPT/HCPCS: 36415; 80053; 85025; 86361; 87536

== ENCOUNTER 2017-03-28 17:39 | Emergency (ER) | payer MEDICAID ==
[2017-03-28] MEDS ORDERED: ASPIRIN 325 MG TABLET PO ONE (18:24)
[2017-03-28] MEDS ORDERED: METHYLPREDNISOLONE INJ 125 MG/2 ML SDV IM ONE (18:25)
[2017-03-28] MEDS ORDERED: IPRATROPIUM/ALBUTEROL 0.5-2.5 MG/3 ML AMPUL NEB ONE (18:25)
--- NOTE | 2017-03-28 18:27 | ER Document Report ---
ED Medical Screen (RME) - General Chief Complaint: Shortness Of Breath Stated Complaint: COUGH Time Seen by Provider: 03/28/17 18:23 Mode of Arrival: Ambulatory Information source: Patient TRAVEL OUTSIDE OF THE [place] IN LAST 30 DAYS: No - HPI Patient complains to provider of: CP; SOB Onset: Other - Pt with c/o CP; SOB; and pleuritic component to CP with cough. She continues to smoke heavily - Related Data Allergies/Adverse Reactions: latex Allergy (Severe, Verified 03/28/17 17:56) blisters,rash morphine [Morphine] Allergy (Severe, Verified 03/28/17 17:56) short of breath Sulfa (Sulfonamide Antibiotics) Allergy (Intermediate, Verified 03/28/17 17:56) rash Plastic tape Adverse Reaction (Uncoded 03/28/17 17:56) Blisters Home Medications: Current Home Medications Fentanyl [Duragesic 25 Mcg/Hr Transdermal Patch] 1 each TD Q3D 03/28/17 [History ] Letrozole [Femara 2.5 Mg Tablet] 2.5 mg PO DAILY 03/28/17 [History] Past Medical History - Past Medical History Cardiac Medical History: Denies: Hx Coronary Artery Disease, Hx Heart Attack, Hx Hypertension Pulmonary Medical History: Reports: Hx Asthma, Hx COPD - emphysema, Hx Pneumonia Denies: Hx Bronchitis Neurological Medical History: Denies: Hx Cerebrovascular Accident, Hx Seizures Renal/ Medical History: Denies: Hx Peritoneal Dialysis Malignancy Medical History: Reports: Hx Breast Cancer - Stage IV, mets to L5 and R & L posterior parietal skull. Musculoskeltal Medical History: Reports Hx Arthritis - generalized, Reports Hx Musculoskeletal Deformity, Reports Hx Musculoskeletal Trauma Psychiatric Medical History: Reports: Hx Anxiety Traumatic Medical History: Reports: Hx Fractures Past Surgical History: Reports: Hx Breast Surgery - Right lumpectomy x2 w/ axillary lymph node diseection., Hx Cholecystectomy, Hx Orthopedic Surgery - Left patellar reconstruction, Hx Tonsillectomy, Hx Tubal Ligation. Denies: Hx Hysterectomy - Immunizations Immunizations up to date: Yes Hx Diphtheria, Pertussis, Tetanus Vaccination: Yes Physical Exam - Vital signs Vitals: Temp Pulse Resp BP Pulse Ox 98.8 F 107 H 20 107/74 97 03/28/17 17:58 03/28/17 17:58 03/28/17 17:58 03/28/17 17:58 03/28/17 17:58 Course - Vital Signs Vital signs: Temp Pulse Resp BP Pulse Ox 98.8 F 107 H 20 107/74 97 03/28/17 17:58 03/28/17 17:58 03/28/17 17:58 03/28/17 17:58 03/28/17 17:58
--- NOTE | 2017-03-28 18:37 | EKG REPORT ---
SEVERITY:- ABNORMAL ECG - SINUS TACHYCARDIA ST ELEVATION, CONSIDER ACUTE PERICARDITIS, CLINICAL CORRELATION NEEDED. : Confirmed by: Seamus Rodriguez MD 28-Mar-2017 18:36:20
--- NOTE | 2017-03-28 19:36 | RADIOLOGY REPORT (SQ) ---
EXAM DESCRIPTION: CHEST PA/LAT COMPLETED DATE/TIME: 03/28/2017 7:19 pm REASON FOR STUDY: CP; SOB COMPARISON: 02/28/2017 EXAM PARAMETERS: NUMBER OF VIEWS: two views TECHNIQUE: Digital Frontal and Lateral radiographic views of the chest acquired. RADIATION DOSE: NA LIMITATIONS: none FINDINGS: LUNGS AND PLEURA: Re- demonstration of increased interstitial markings, predominantly invo lving the left lung base. No new focal consolidation. Pneumothorax. No pleural effusion. MEDIASTINUM AND HILAR STRUCTURES: No masses or contour abnormalities. HEART AND VASCULAR STRUCTURES: Heart normal size. No evidence for failure. BONES: No acute findings. HARDWARE: Left anterior chest wall Port-A-Cath is stable in position and appearance. OTHER: No other significant finding. IMPRESSION: Stable radiographic appearance of the chest. No evidence of acute cardiopulmonary abnor mality. TECHNICAL DOCUMENTATION: JOB ID: [id number] [employer]- All Rights Reserved
[2017-03-28 19:41] LABS: ALANINE AMINOTRANSFERASE 49 U/L (9-52); ALBUMIN 3.3 g/dL (3.5-5.0); ALKALINE PHOSPHATASE 268 U/L (38-126); ANION GAP 9 (5-19); ASPARTATE AMINO TRANSFERASE 48 U/L (14-36); BILIRUBIN,DIRECT 0.3 mg/dL (0.0-0.4); BILIRUBIN,TOTAL 0.7 mg/dL (0.2-1.3); BLOOD UREA NITROGEN 14 mg/dL (7-20); CALCIUM 7.6 mg/dL (8.4-10.2); CARBON DIOXIDE 26 mmol/L (22-30); CHLORIDE 106 mmol/L (98-107); CREATINE KINASE 31 U/L (30-135); CREATININE RESULT 1.17 mg/dL (0.52-1.25); GLUCOSE 106 mg/dL (75-110); POTASSIUM 4.4 mmol/L (3.6-5.0); SODIUM 140.5 mmol/L (137-145)
[2017-03-28 19:49] LABS: ABSOLUTE EOSINOPHILS # (AUTO) 0.1 10^3/uL (0.0-0.6); ABSOLUTE LYMPHOCYTES (AUTO) 0.5 10^3/uL (0.5-4.7); ABSOLUTE MONOCYTES (AUTO) 0.3 10^3/uL (0.1-1.4); ABSOLUTE NEUT (AUTO) 3.3 10^3/uL (1.7-8.2); BASOPHILS % (AUTO) 0.4 % (0-2); EOSINOPHILS % (AUTO) 1.7 % (0-6); HEMATOCRIT 33.4 % (36.0-47.0); HEMOGLOBIN 11.1 g/dL (12.0-15.5); HGB HCT DIFFERENCE -0.1; LYMPHOCYTES % (AUTO) 11.1 % (13-45); MEAN CORPUSCULAR HEMOGLOBIN 37.1 pg (27.0-33.4); MEAN CORPUSCULAR HGB CONC 33.2 g/dL (32.0-36.0); MONOCYTES % (AUTO) 6.6 % (3-13); RED BLOOD COUNT 2.99 10^6/uL (3.72-5.28); RED CELL DISTRIBUTION WIDTH 18.7 % (11.5-14.0); SEGMENTED NEUTROPHILS % (AUTO) 80.2 % (42-78); WHITE BLOOD COUNT 4.1 10^3/uL (4.0-10.5)
[2017-03-28 19:51] LABS: CREATINE KINASE MB 1.49 ng/mL (<4.55)
[2017-03-28 19:59] LABS: TROPONIN I < 0.012 ng/mL
[2017-03-28 20:06] LABS: ANISOCYTOSIS 2+
[2017-03-28 20:08] LABS: POLYCHROMASIA SLIGHT
[2017-03-28 20:09] LABS: OVALOCYTES SLIGHT; POIKILOCYTOSIS SLIGHT
[2017-03-28 20:10] LABS: MEAN CORPUSCULAR VOLUME 112 fl (80-97)
[2017-03-28 20:19] LABS: APPEARANCE,URINE CLEAR; BILIRUBIN,URINE NEGATIVE (NEGATIVE); GLUCOSE, URINE NEGATIVE (NEGATIVE); KETONES,URINE NEGATIVE (NEGATIVE); LEUKOCYTE ESTERASE,URINE NEGATIVE (NEGATIVE); NITRITE,URINE NEGATIVE (NEGATIVE); PROTEIN,URINE NEGATIVE (NEGATIVE); URINE SPECIFIC GRAVITY 1.017
[2017-03-28 21:15] LABS: VENOUS BLOOD BASE EXCESS 0.8 mmol/L; VENOUS BLOOD HCO3 26.8 mmol/L (20-32); VENOUS BLOOD PCO2 49.6 mmHg (35-63); VENOUS BLOOD PH 7.35 (7.30-7.42)
--- NOTE | 2017-03-28 22:17 | RADIOLOGY REPORT (SQ) ---
EXAM DESCRIPTION: CTA CHEST COMPLETED DATE/TIME: 03/28/2017 9:35 pm REASON FOR STUDY: SOB COMPARISON: CT chest 03/21/2017, 02/28/2017, 10/21/2016, 07/09/2016. TECHNIQUE: CT scan of the chest performed using helical scanning technique with dynamic intravenous contrast injection. Images reviewed with lung, soft tissue and bone windows. Reconstructed coronal and sagittal MPR images reviewed. Additional 3 dimensional post-processing performed to develop Maximal Intensity Projection images ([place] P). All images stored on PACS. All CT scanners at this facility use dose modulation, iterative reconstruction, and/or weight based d osing when appropriate to reduce radiation dose to as low as reasonably achievable (ALARA). [facility]: Dose Right [facility]: CareDose [facility]: Dose Right [facility]: Teradose 4D [facility]: [employer] CONTRAST TYPE AND DOSE: contrast/concentration: Isovue mg/ml; Total Contrast Delivered: 75.0 ml; To yo Saline Delivered: 45.0 ml Contrast bolus optimized for the pulmonary arteries. Not diagnostic for the aorta. RENAL FUNCTION: BUN 14; creatinine 1.17 RADIATION DOSE: Up-to-date CT equipment and radiation dose reduction techniques were employed. CTDIv ol: 19.7 - 46.3 mGy. DLP: 718 mGy-cm. . LIMITATIONS: Suboptimal bolus timing results poor opacification of the pulmonary arteries. FINDINGS: LUNGS AND PLEURA: Re- demonstration of diffuse centrilobular and paraseptal emphysematous change. Bibasilar atelectasis. No mass. No pleural effusion. AORTA AND GREAT VESSELS: No aneurysm. Contrast bolus not optimized for the aorta. HEART: No pericardial effusion. No significant coronary artery calcifications. PULMONARY ARTERIES: No emboli visualized in the main pulmonary arteries or the segmental branches. HILAR AND MEDIASTINAL STRUCTURES: No identified masses or abnormal nodes. HARDWARE: Port-A-Cath appears stable in position and appearance. UPPER ABDOMEN: Stable central biliary prominence. Limited exam. THYROID AND OTHER SOFT TISSUES: No masses. No adenopathy appear stable CT appearance of the breasts demonstrating left breast skin thickening and increased density. BONES: Essentially stable appearance of multiple sclerotic foci throughout the thoracic spine. No ne w fractures. 3D MIPS: Confirm above findings. OTHER: No other significant finding. IMPRESSION: 1. No evidence of central or segmental pulmonary embolus. 2. No evidence of acute cardiopulmonary abnormality. Background of COPD. 3. Innumerable sclerotic foci seen throughout the thoracic spine, consistent with previously reporte d metastatic disease. No new fractures. 4. Left-sided Port-A-Cath, stable. COMMENT: Quality ID # [id number]: Final reports with documentation of one or more dose reduction techniques (e.g., Automated exposure control, adjustment of the mA and/or kV according to patient size, use of iterative reconstruction technique) TECHNICAL DOCUMENTATION: JOB ID: [id number] [employer]- All Rights Reserved
--- NOTE | 2017-03-28 22:27 | ER Document Report ---
ED Respiratory Problem - General Chief Complaint: Shortness Of Breath Stated Complaint: COUGH Time Seen by Provider: 03/28/17 18:23 Mode of Arrival: Ambulatory Information source: Patient TRAVEL OUTSIDE OF THE [place] IN LAST 30 DAYS: No - HPI Patient complains to provider of: COPD, Cough, Short of breath Onset: This morning Duration: Worse/persistent Quality of pain: Achy Severity: Mild Pain Level: 1 Context: Hx COPD, Malignancy, Smoker Short of Breath: Moderate Chest pain/discomfort: Tightness Cough: Productive Sputum amount: Small Sputum color: Yellow Sputum consistency: Mucoid At home treatment: Bronchodilators Associated symptoms: Chest pain/discomfort, Congestion, Cough, Difficulty breathing, Short of breath, Wheezing Similar symptoms previously: Yes Recently seen / treated by doctor: Yes Notes: Patient is a 51-year-old female with a history of emphysema as well as stage IV breast cancer with bony metastases, who continues to smoke 2-3 packs of cigarettes per day, presenting to the emergency room today complaining of shortness of breath that started around 5:00 in the morning with chest tightness and pain, she reports she used an inhaler early in the morning and her symptoms got better only to return this evening, she has had a cough productive of yellowish phlegm and a subjective fever, she was recently restarted on a chemotherapy pill that she started on Friday, she denies any sick contacts, recently completed a course of oral steroids - Related Data Allergies/Adverse Reactions: latex Allergy (Severe, Verified 03/28/17 17:56) blisters,rash morphine [Morphine] Allergy (Severe, Verified 03/28/17 17:56) short of breath Sulfa (Sulfonamide Antibiotics) Allergy (Intermediate, Verified 03/28/17 17:56) rash Plastic tape Adverse Reaction (Uncoded 03/28/17 17:56) Blisters Home Medications: Current Home Medications Fentanyl [Duragesic 25 Mcg/Hr Transdermal Patch] 1 each TD Q3D 03/28/17 [History ] Letrozole [Femara 2.5 Mg Tablet] 2.5 mg PO DAILY 03/28/17 [History] Past Medical History - General Information source: Patient - Social History Smoking Status: Current Every Day Smoker Family History: Reviewed & Not Pertinent Patient has suicidal ideation: No Patient has homicidal ideation: No - Past Medical History Cardiac Medical History: Denies: Hx Coronary Artery Disease, Hx Heart Attack, Hx Hypertension Pulmonary Medical History: Reports: Hx Asthma, Hx COPD - emphysema, Hx Pneumonia Denies: Hx Bronchitis Neurological Medical History: Denies: Hx Cerebrovascular Accident, Hx Seizures Renal/ Medical History: Denies: Hx Peritoneal Dialysis Malignancy Medical History: Reports: Hx Breast Cancer - Stage IV, mets to L5 and R & L posterior parietal skull. Musculoskeltal Medical History: Reports Hx Arthritis - generalized, Reports Hx Musculoskeletal Deformity, Reports Hx Musculoskeletal Trauma Psychiatric Medical History: Reports: Hx Anxiety Traumatic Medical History: Reports: Hx Fractures Past Surgical History: Reports: Hx Breast Surgery - Right lumpectomy x2 w/ axillary lymph node diseection., Hx Cholecystectomy, Hx Orthopedic Surgery - Left patellar reconstruction, Hx Tonsillectomy, Hx Tubal Ligation. Denies: Hx Hysterectomy - Immunizations Immunizations up to date: Yes Hx Diphtheria, Pertussis, Tetanus Vaccination: Yes Hx Pneumococcal Vaccination: 01/26/15 Review of Systems - Review of Systems Constitutional: No symptoms reported EENT: No symptoms reported Cardiovascular: See HPI Respiratory: See HPI Gastrointestinal: No symptoms reported Genitourinary: No symptoms reported Female Genitourinary: No symptoms reported Musculoskeletal: No symptoms reported Skin: No symptoms reported Hematologic/Lymphatic: No symptoms reported Neurological/Psychological: No symptoms reported -: Yes All other systems reviewed and negative Physical Exam - Vital signs Vitals: Temp Pulse Resp BP Pulse Ox 98.8 F 107 H 20 107/74 97 03/28/17 17:58 03/28/17 17:58 03/28/17 17:58 03/28/17 17:58 03/28/17 17:58 Interpretation: Tachycardic - General General appearance: Appears well, Alert - HEENT Head: Normocephalic, Atraumatic Eyes: Normal Pupils: PERRL - Respiratory Respiratory status: No respiratory distress Chest status: Nontender Breath sounds: Normal Chest palpation: Normal - Cardiovascular Rhythm: Regular Heart sounds: Normal auscultation Murmur: No - Abdominal Inspection: Normal Distension: No distension Bowel sounds: Normal Tenderness: Nontender Organomegaly: No organomegaly - Back Back: Normal, Nontender - Extremities General upper extremity: Normal inspection, Nontender, Normal color, Normal ROM , Normal temperature General lower extremity: Normal inspection, Nontender, Normal color, Normal ROM , Normal temperature, Normal weight bearing. No: Aicha's sign - Neurological Neuro grossly intact: Yes Cognition: Normal Orientation: AAOx4 O'Brien Coma Scale Eye Opening: Spontaneous Franny Coma Scale Verbal: Oriented O'Brien Coma Scale Motor: Obeys Commands Franny Coma Scale Total: 15 Speech: Normal Motor strength normal: LUE, RUE, LLE, RLE Sensory: Normal - Psychological Associated symptoms: Normal affect, Normal mood - Skin Skin Temperature: Warm Skin Moisture: Dry Skin Color: Normal Course - Re-evaluation Re-evalutation: 03/28/17 22:25 Lab and imaging findings discussed with patient at bedside, symptoms are consistent with COPD exacerbation, patient was advised to quit smoking, follow- up with her primary care provider and oncologist or return if symptoms worsen, patient acknowledges understanding and agreement with this plan - Vital Signs Vital signs: Temp Pulse Resp BP Pulse Ox 98.8 F 107 H 20 107/74 97 03/28/17 17:58 03/28/17 17:58 03/28/17 17:58 03/28/17 17:58 03/28/17 17:58 - Laboratory Result Diagrams: 03/28/17 19:03 03/28/17 19:03 Laboratory results interpreted by me: 03/28/17 03/28/17 03/28/17 19:03 19:03 19:03 RBC 2.99 L Hgb 11.1 L Hct 33.4 L MCV 112 H MCH 37.1 H RDW 18.7 H Seg Neutrophils % 80.2 H Lymphocytes % 11.1 L D-Dimer 1.43 H Est GFR ( Amer) 59 L Est GFR (Non-Af Amer) 48 L Calcium 7.6 L AST 48 H Alkaline Phosphatase 268 H Total Protein 6.0 L Albumin 3.3 L Urine Urobilinogen Urine Ascorbic Acid 03/28/17 19:43 RBC Hgb Hct MCV MCH RDW Seg Neutrophils % Lymphocytes % D-Dimer Est GFR ( Amer) Est GFR (Non-Af Amer) Calcium AST Alkaline Phosphatase Total Protein Albumin Urine Urobilinogen 2.0 H Urine Ascorbic Acid 40 H - Diagnostic Test Radiology reviewed: Image reviewed, Reports reviewed - EKG Interpretation by Me EKG shows normal: Sinus rhythm Rate: Tachycardia Discharge - Discharge Clinical Impression: COPD exacerbation Condition: Stable Disposition: HOME, SELF-CARE Instructions: Chronic Obstructive Lung Disease ([facility]) Additional Instructions: Follow up with your primary care provider in one to 2 days. Return to the emergency room immediately if symptoms worsen or any additional concerns. Prescriptions: Prednisone 40 mg PO DAILY #8 tablet Forms: Smoking Cessation Education Referrals: CRUZ COOK MD [Primary Care Provider] - Follow up as needed
[2017-03-29 03:41] VITALS: BP 103/65
== END 2017-03-28 22:35 | disposition home or self-care (01) ==
LOC: ER 17:39
DX: J44.1 Chronic obstructive pulmonary disease with (acute) exacerbation (principal); R06.02 Shortness of breath; R05 Cough; F17.210 Nicotine dependence, cigarettes, uncomplicated; Z79.899 Other long term (current) drug therapy; Z85.3 Personal history of malignant neoplasm of breast
CPT/HCPCS: 93005; 94640; 99285; 96372; 36415; 82553; 82550; 85025; 80053; 81001; 84484; 85379; 82803; 71020; 71275; 93010; J2930; J7620

== ENCOUNTER 2017-04-22 22:33 | Emergency (ER) | payer MEDICAID ==
--- NOTE | 2017-04-23 00:42 | ER Document Report ---
ED Medical Screen (RME) - General Chief Complaint: Back Pain Stated Complaint: LOWER BACK PAIN Time Seen by Provider: 04/23/17 00:41 Mode of Arrival: Ambulatory Information source: Patient Notes: 51-year-old female presented to ED for complaint of weakness and pain in the lower back. She is a oncology patient with bilateral breast cancer metastatic to all her bones no organ metastases according to the patient. She went to the oncologist today and she has a paper with her that her white count was 1.9 hematocrit was 33.7 hemoglobin was 10.7 with a platelet of 62. She states that last time her pulse was 101 the doctor gave her blood I tried to explain to her that her hemoglobin was normal at this time and she did not need blood but I would have her seen by the doctors. She has a fentanyl patch on Entex Roxicodone 30 mg. I have greeted and performed a rapid initial assessment of this patient. A comprehensive ED assessment and evaluation of the patient, analysis of test results and completion of medical decision making process will be conducted by an additional ED providers. TRAVEL OUTSIDE OF THE [place] IN LAST 30 DAYS: No - Related Data Allergies/Adverse Reactions: latex Allergy (Severe, Verified 03/28/17 17:56) blisters,rash morphine [Morphine] Allergy (Severe, Verified 03/28/17 17:56) short of breath Sulfa (Sulfonamide Antibiotics) Allergy (Intermediate, Verified 03/28/17 17:56) rash Plastic tape Adverse Reaction (Uncoded 03/28/17 17:56) Blisters Past Medical History - Past Medical History Cardiac Medical History: Denies: Hx Coronary Artery Disease, Hx Heart Attack, Hx Hypertension Pulmonary Medical History: Reports: Hx Asthma, Hx COPD - emphysema, Hx Pneumonia Denies: Hx Bronchitis Neurological Medical History: Denies: Hx Cerebrovascular Accident, Hx Seizures Renal/ Medical History: Denies: Hx Peritoneal Dialysis Malignancy Medical History: Reports: Hx Breast Cancer - Stage IV, mets to L5 and R & L posterior parietal skull. Musculoskeltal Medical History: Reports Hx Arthritis - generalized, Reports Hx Musculoskeletal Deformity, Reports Hx Musculoskeletal Trauma Psychiatric Medical History: Reports: Hx Anxiety Traumatic Medical History: Reports: Hx Fractures Past Surgical History: Reports: Hx Breast Surgery - Right lumpectomy x2 w/ axillary lymph node diseection., Hx Cholecystectomy, Hx Orthopedic Surgery - Left patellar reconstruction, Hx Tonsillectomy, Hx Tubal Ligation. Denies: Hx Hysterectomy - Immunizations Immunizations up to date: Yes Hx Diphtheria, Pertussis, Tetanus Vaccination: Yes Physical Exam - Vital signs Vitals: Temp Pulse Resp BP Pulse Ox 98.2 F 108 H 20 116/61 93 04/22/17 22:58 04/22/17 22:58 04/22/17 22:58 04/22/17 22:58 04/22/17 22:58 Course - Vital Signs Vital signs: Temp Pulse Resp BP Pulse Ox 98.2 F 108 H 20 116/61 93 04/22/17 22:58 04/22/17 22:58 04/22/17 22:58 04/22/17 22:58 04/22/17 22:58
[2017-04-23] MEDS ORDERED: ONDANSETRON HCL INJ/PF 4 MG/2 ML SDV IV ONE (01:43)
[2017-04-23] MEDS ORDERED: HYDROMORPHONE HCL INJ/PF 2 MG/ML AMPULE IV ONE (01:44)
--- NOTE | 2017-04-23 01:46 | ER Document Report ---
ED General - General Chief Complaint: Back Pain Stated Complaint: LOWER BACK PAIN Time Seen by Provider: 04/23/17 00:41 Mode of Arrival: Ambulatory Notes: Patient is a 51-year-old female comes emergency department for chief complaint of pain in her left lower flank and general weakness. Patient has a history of breast cancer with bony metastasis. She states that she just completed a 21 oral chemotherapy course of Ibranth, she states that she was seen yesterday and was told her numbers are very low afterwards. She denies fever, vomiting, she is still eating and drinking normally, she is moving her bowels. TRAVEL OUTSIDE OF THE [place] IN LAST 30 DAYS: No - Related Data Allergies/Adverse Reactions: latex Allergy (Severe, Verified 03/28/17 17:56) blisters,rash morphine [Morphine] Allergy (Severe, Verified 03/28/17 17:56) short of breath Sulfa (Sulfonamide Antibiotics) Allergy (Intermediate, Verified 03/28/17 17:56) rash Plastic tape Adverse Reaction (Uncoded 03/28/17 17:56) Blisters Past Medical History - General Information source: Patient - Social History Smoking Status: Never Smoker Drug Abuse: None Lives with: Family Family History: Reviewed & Not Pertinent Patient has suicidal ideation: No Patient has homicidal ideation: No - Past Medical History Cardiac Medical History: Denies: Hx Coronary Artery Disease, Hx Heart Attack, Hx Hypertension Pulmonary Medical History: Reports: Hx Asthma, Hx COPD - emphysema, Hx Pneumonia Denies: Hx Bronchitis Neurological Medical History: Denies: Hx Cerebrovascular Accident, Hx Seizures Renal/ Medical History: Denies: Hx Peritoneal Dialysis Malignancy Medical History: Reports: Hx Breast Cancer - Stage IV, mets to L5 and R & L posterior parietal skull. Musculoskeltal Medical History: Reports Hx Arthritis - generalized, Reports Hx Musculoskeletal Deformity, Reports Hx Musculoskeletal Trauma Psychiatric Medical History: Reports: Hx Anxiety Traumatic Medical History: Reports: Hx Fractures Past Surgical History: Reports: Hx Breast Surgery - Right lumpectomy x2 w/ axillary lymph node diseection., Hx Cholecystectomy, Hx Orthopedic Surgery - Left patellar reconstruction, Hx Tonsillectomy, Hx Tubal Ligation. Denies: Hx Hysterectomy - Immunizations Immunizations up to date: Yes Hx Diphtheria, Pertussis, Tetanus Vaccination: Yes Hx Pneumococcal Vaccination: 01/26/15 Review of Systems - Review of Systems Constitutional: See HPI EENT: No symptoms reported Cardiovascular: No symptoms reported Respiratory: No symptoms reported Gastrointestinal: No symptoms reported Genitourinary: See HPI Female Genitourinary: No symptoms reported Musculoskeletal: See HPI Skin: No symptoms reported Hematologic/Lymphatic: No symptoms reported Neurological/Psychological: No symptoms reported Physical Exam - Vital signs Vitals: Temp Pulse Resp BP Pulse Ox 98.2 F 108 H 20 116/61 93 04/22/17 22:58 04/22/17 22:58 04/22/17 22:58 04/22/17 22:58 04/22/17 22:58 Interpretation: Normal - General General appearance: Appears well, Alert In distress: None - HEENT Head: Normocephalic, Atraumatic Eyes: Normal Conjunctiva: Normal Extraocular movements intact: Yes Eyelashes: Normal Pupils: PERRL Mouth/Lips: Normal Mucous membranes: Normal Pharynx: Normal Neck: Normal - Respiratory Respiratory status: No respiratory distress Chest status: Nontender Breath sounds: Normal. No: Decreased air movement, Wheezing Chest palpation: Normal - Cardiovascular Rhythm: Regular. No: Tachycardia Heart sounds: Normal auscultation, S1 appreciated, S2 appreciated Murmur: No - Abdominal Inspection: Normal Distension: No distension Bowel sounds: Normal Tenderness: Nontender Organomegaly: No organomegaly - Back Back: Tender - There is mild paraspinal tenderness over the left lower lumbar areas, no contusions, swelling, abnormal heat to the area, no saddle anesthesia , full range of motion of all extremities, normal distal neurovascular exam. No midline tenderness.. No: Vertebra tenderness - Extremities General upper extremity: Normal inspection, Nontender, Normal strength, Normal temperature General lower extremity: Other - There is mild pitting edema of lower extremities, reportedly chronic, surgical changes over the left knee, no erythema, tenderness, normal distal neurovascular exam - Neurological Neuro grossly intact: Yes Cognition: Normal Orientation: AAOx4 Franny Coma Scale Eye Opening: Spontaneous [place] Coma Scale Verbal: Oriented Franny Coma Scale Motor: Obeys Commands Franny Coma Scale Total: 15 Speech: Normal Motor strength normal: LUE, RUE, LLE, RLE Sensory: Normal - Psychological Associated symptoms: Normal affect, Normal mood - Skin Skin Temperature: Warm Skin Moisture: Dry Skin Color: Normal Course - Re-evaluation Re-evalutation: Patient is well-appearing. Clear lungs, soft abdomen, on my examination she does not have tachycardia. She is conversational and alert. There is pain along the left lower lumbar paraspinals area on palpation but no CVA tenderness. No fever. Urinalysis unremarkable, does not indicate urinary tract source of flank pain. Chemistry generally unremarkable. CBC does show change from her previous check in March, she has pancytopenia including low white blood cell count, low platelets in the 60,000, and neutropenia at 1. Patient just completed new chemotherapy course. She is supposed to start the next course tomorrow. Called and spoke with Dr. Hsu, health education coordinator for patient's oncologist. Discussed patient's history, presentation, findings. Recommendation is that patient will not start the new chemotherapy tomorrow, they will need to wait for patient's labs to improve, patient will be on neutropenic precautions and instructed that if she develops a fever of 100.4 or greater she is to call her oncologist immediately. Patient declines any additional medication for her lower back pain , states it is not severe and she just wanted to be checked. She declines additional evaluation for this at this time. She requests to go home. Patient discharged home with strict return precautions and follow-up instructions. Patient states satisfaction and agreement. - Vital Signs Vital signs: Temp Pulse Resp BP Pulse Ox 97.9 F 108 H 18 102/64 97 04/23/17 03:32 04/23/17 03:32 04/23/17 03:32 04/23/17 03:32 04/23/17 03:32 - Laboratory Result Diagrams: 04/23/17 02:32 04/23/17 02:32 Laboratory results interpreted by me: 04/23/17 04/23/17 04/23/17 02:00 02:32 02:32 WBC 1.7 L RBC 2.78 L Hgb 10.4 L Hct 30.3 L MCV 109 H MCH 37.5 H RDW 19.2 H Plt Count 66 L Metamyelocytes % 2 H Promyelocytes % 2 H Abs Neuts (Manual) 1.0 L Alkaline Phosphatase 265 H Total Protein 5.6 L Albumin 3.2 L Urine Urobilinogen 2.0 H Urine Ascorbic Acid 40 H Discharge - Discharge Clinical Impression: Pancytopenia Lower back pain Qualifiers: Chronicity: acute Back pain laterality: left Sciatica presence: without sciatica Qualified Code(s): M54.5 - Low back pain Condition: Stable Disposition: HOME, SELF-CARE Additional Instructions: Your workup shows low blood counts including white blood cells, platelets, and neutrophils. Please follow neutropenic precautions meaning if you have a fever of 100.4 or above you must call your oncologist immediately. Please call for a close follow-up with your oncologist to continue your monitoring. I spoke with Dr. Shadi jimenez, she instructs that you will not be starting your second round of the oral chemotherapy tomorrow. Return to the emergency department for any concerning symptoms. Referrals: CRUZ COOK MD [Primary Care Provider] - Follow up as needed
[2017-04-23 03:06] LABS: APPEARANCE,URINE CLEAR; BILIRUBIN,URINE NEGATIVE (NEGATIVE); GLUCOSE, URINE NEGATIVE (NEGATIVE); KETONES,URINE NEGATIVE (NEGATIVE); LEUKOCYTE ESTERASE,URINE NEGATIVE (NEGATIVE); NITRITE,URINE NEGATIVE (NEGATIVE); PROTEIN,URINE NEGATIVE (NEGATIVE); URINE SPECIFIC GRAVITY 1.023
[2017-04-23 03:10] LABS: ALANINE AMINOTRANSFERASE 37 U/L (9-52); ALBUMIN 3.2 g/dL (3.5-5.0); ALKALINE PHOSPHATASE 265 U/L (38-126); ANION GAP 8 (5-19); ASPARTATE AMINO TRANSFERASE 31 U/L (14-36); BILIRUBIN,DIRECT 0.2 mg/dL (0.0-0.4); BILIRUBIN,TOTAL 0.5 mg/dL (0.2-1.3); BLOOD UREA NITROGEN 14 mg/dL (7-20); CALCIUM 8.4 mg/dL (8.4-10.2); CARBON DIOXIDE 29 mmol/L (22-30); CHLORIDE 104 mmol/L (98-107); CREATININE RESULT 0.83 mg/dL (0.52-1.25); GLUCOSE 97 mg/dL (75-110); SODIUM 141.4 mmol/L (137-145); TOTAL PROTEIN 5.6 g/dL (6.3-8.2)
[2017-04-23 03:15] LABS: HEMATOCRIT 30.3 % (36.0-47.0); HEMOGLOBIN 10.4 g/dL (12.0-15.5); HGB HCT DIFFERENCE 0.9; MEAN CORPUSCULAR HEMOGLOBIN 37.5 pg (27.0-33.4); MEAN CORPUSCULAR HGB CONC 34.4 g/dL (32.0-36.0); MEAN CORPUSCULAR VOLUME 109 fl (80-97); RED BLOOD COUNT 2.78 10^6/uL (3.72-5.28); RED CELL DISTRIBUTION WIDTH 19.2 % (11.5-14.0)
[2017-04-23 03:17] LABS: BACTERIA,URINE TRACE /HPF; RBC,URINE 0-1 /HPF; WBC,URINE 0-1 /HPF
[2017-04-23 03:30] LABS: BASOPHILS % (MANUAL) 0 % (0-2); EOSINOPHILS % (MANUAL) 0 % (0-6); LYMPHOCYTES % (MANUAL) 32 % (13-45); TOTAL CELLS COUNTED 50
[2017-04-23 03:32] LABS: ANISOCYTOSIS 2+; OVALOCYTES SLIGHT; POIKILOCYTOSIS SLIGHT; POLYCHROMASIA SLIGHT; SCHISTOCYTES SLIGHT; TEAR DROP CELLS SLIGHT; TOXIC GRANULATION SLIGHT; TOXIC VACUOLATION PRESENT
[2017-04-23 03:33] VITALS: BP 102/64
[2017-04-23 03:35] LABS: WHITE BLOOD COUNT 1.7 10^3/uL (4.0-10.5)
[2017-04-23] MEDS ORDERED: NORMAL SALINE 1000 ML 1,000 ML IV ONE (03:37)
[2017-04-24 07:57] LABS: PATH REVIEW PATHOLOGIST REVIEWED
== END 2017-04-23 04:12 | disposition home or self-care (01) ==
LOC: ER 22:33
DX: D61.818 Other pancytopenia (principal); M54.5 Low back pain; R53.1 Weakness; C50.919 Malignant neoplasm of unspecified site of unspecified female breast; C79.51 Secondary malignant neoplasm of bone; Z91.040 Latex allergy status; Z88.6 Allergy status to analgesic agent; Z88.2 Allergy status to sulfonamides
CPT/HCPCS: 36591; 99283; 96374; 96375; 36415; 85025; 80053; 81001; J1170; J2405

== ENCOUNTER → 2017-07-21 | Outpatient (CLI) | payer MEDICAID ==
[2017-07-21 15:35] LABS: HEMATOCRIT 38.6 % (36.0-47.0); HEMOGLOBIN 12.9 g/dL (12.0-15.5); MEAN CORPUSCULAR HEMOGLOBIN 34.6 pg (27.0-33.4); MEAN CORPUSCULAR HGB CONC 33.4 g/dL (32.0-36.0); MEAN CORPUSCULAR VOLUME 104 fl (80-97); PLATELET COUNT 134 10^3/uL (150-450); RED BLOOD COUNT 3.73 10^6/uL (3.72-5.28); RED CELL DISTRIBUTION WIDTH 21.7 % (11.5-14.0); WHITE BLOOD COUNT 1.6 10^3/uL (4.0-10.5)
[2017-07-21 15:51] LABS: ALANINE AMINOTRANSFERASE 45 U/L (9-52); ALBUMIN 3.8 g/dL (3.5-5.0); ALKALINE PHOSPHATASE 116 U/L (38-126); ANION GAP 9 (5-19); ASPARTATE AMINO TRANSFERASE 32 U/L (14-36); BILIRUBIN,DIRECT 0.2 mg/dL (0.0-0.4); BILIRUBIN,TOTAL 0.5 mg/dL (0.2-1.3); BLOOD UREA NITROGEN 11 mg/dL (7-20); CALCIUM 8.3 mg/dL (8.4-10.2); CARBON DIOXIDE 28 mmol/L (22-30); CHLORIDE 102 mmol/L (98-107); CHOLESTEROL 118.68 mg/dL (0-200); GLUCOSE 85 mg/dL (75-110); POTASSIUM 4.4 mmol/L (3.6-5.0); SODIUM 138.7 mmol/L (137-145); TOTAL PROTEIN 5.8 g/dL (6.3-8.2); TRIGLYCERIDES 66 mg/dL (<150)
[2017-07-21 15:54] LABS: ABSOLUTE LYMPHOCYTES# (MANUAL) 0.4 10^3/uL (0.5-4.7); ABSOLUTE MONOCYTES # (MANUAL) 0.1 10^3/uL (0.1-1.4); BAND NEUTROPHILS % (MANUAL) 2 % (3-5); BASOPHILS % (MANUAL) 0 % (0-2); EOSINOPHILS % (MANUAL) 8 % (0-6); LYMPHOCYTES % (MANUAL) 12 % (13-45); MONOCYTES % (MANUAL) 8 % (3-13); SEGMENTED NEUTROPHILS % (MAN) 60 % (42-78); TOTAL CELLS COUNTED 50
[2017-07-21 15:56] LABS: ANISOCYTOSIS 2+; PLATELET COMMENT ADEQUATE; POLYCHROMASIA SLIGHT
[2017-07-21 16:02] LABS: DIRECT LDL 48 mg/dL (<100)
[2017-07-21 17:01] LABS: CHLAM PCR NOT DETECTED (NOT DETECT); GON PCR NOT DETECTED (NOT DETECT)
[2017-07-23 15:39] LABS: ABSOLUTE CD 4 HELPER 170 /uL (359-1519); CD BASOPHILS 2 % (Not Estab.); CD EOSINOPHILS 3 % (Not Estab.); CD MONOCYTES 6 % (Not Estab.); CD NEUTROPHILS 59 % (Not Estab.); HEMOGLOBIN 12.3 g/dL (11.1-15.9); IMMATURE GRANULOCYTES 1 % (Not Estab.); LYMPHS(ABSOLUTE) 0.5 x10E3/uL (0.7-3.1); MCH 34.4 pg (26.6-33.0); MCHC 32.7 g/dL (31.5-35.7); MCV 105 fL (79-97); MONOCYTES(ABSOLUTE) 0.1 x10E3/uL (0.1-0.9); NEUTROPHILS(ABSOLUTE) 0.9 x10E3/uL (1.4-7.0); PLATELETS 153 x10E3/uL (150-379); RBC 3.58 x10E6/uL (3.77-5.28); RDW 20.2 % (12.3-15.4); WBC 1.6 x10E3/uL (3.4-10.8)
[2017-07-24 11:41] LABS: HIV-1 RNA LOG10.. 1.954 (.); HIV-1 RNA PCR QUANT 90 copies/mL (.)
== END ==
LOC: LAB 14:56
PROVIDERS: ATTEND Nurse Practitioner
DX: B20 Human immunodeficiency virus [HIV] disease (principal); Z11.3 Encounter for screening for infections with a predominantly sexual mode of transmission; Z79.899 Other long term (current) drug therapy
CPT/HCPCS: 36415; 80053; 80061; 85025; 86361; 86592; 87491; 87536; 87591

== ENCOUNTER → 2017-08-06 | Outpatient (CLI) | payer MEDICAID ==
--- NOTE | 2017-08-06 16:37 | RADIOLOGY REPORT (SQ) ---
EXAM DESCRIPTION: NM WHOLE BODY BONE SCAN COMPLETED DATE/TIME: 08/06/2017 3:08 pm REASON FOR STUDY: BONE CA (C79.51) C50.411 MALIG NEOPLM OF UPPER-OUTER QUADRANT OF RIGHT FEMALE COMPARISON: Serial scans from 11/27/2016 back to 07/25/2014 RADIONUCLIDE AND DOSE: 20 millicuries Tc99m HDP. The route of agent administration: Intravenous. ADDITIONAL DRUGS AND DOSES: None. TECHNIQUE: Routine delayed images at 3 hours post radionuclide injection acquired of the bony skelet on including anterior and posterior whole-body projections and additional focused images as needed. LIMITATIONS: None. FINDINGS: BONES: There continues to be uptake in the left rib, dorsal spine, both knees, proximal ti bias, shoulders, calvarium, and sternum. There is focal uptake in the inferior aspect of the sacroil iac joints, left more than right. The uptake in the left sacroiliac joint appears slightly more inte nse than on the earlier studies. This may be secondary to positioning. KIDNEYS: Symmetric excretion without obstruction. OTHER: No other significant finding. IMPRESSION: There is heterogeneous, stable uptake in the skeletal system as described. The uptake i n the left sacroiliac joint appears to demonstrate increased intensity, but it is possible that this is secondary to positioning. COMMENT: Quality measure 147: Current bone scan is compared with any available plain radiographs, p rior bone scans, and CT/MRI. TECHNICAL DOCUMENTATION: JOB ID: [id number] [employer]- All Rights Reserved Reading location - IP/workstation name: [email or web address]
--- NOTE | 2017-08-06 16:46 | RADIOLOGY REPORT (SQ) ---
EXAM DESCRIPTION: CT CHEST WITH; CT ABD/PELVIS WITH IV ONLY COMPLETED DATE/TIME: 08/06/2017 11:29 am REASON FOR STUDY: BREAST CA (C50.411) C50.411 MALIG NEOPLM OF UPPER-OUTER QUADRANT OF RIGHT FEMALE COMPARISON: Bone scan today CT chest 03/28/2017 CT chest abdomen pelvis 03/21/2017, 10/21/2016, 07/09/2016 CONTRAST TYPE AND DOSE: contrast/concentration: Isovue 370.00 mg/ml; Total Contrast Delivered: 100.0 ml; Total Saline Delivered: 70.0 ml RENAL FUNCTION: Creatinine 0.8 TECHNIQUE: CT scan of the chest performed using helical scanning technique with dynamic intravenous contrast injection. Images reviewed with lung, soft tissue and bone windows. Reconstructed coronal a nd sagittal MPR images reviewed. All images stored on PACS. CT scan of the abdomen and pelvis performed with intravenous and without oral contrastusing helical s roger technique with dynamic intravenous contrast injection. Images reviewed with lung, soft tissu e and bone windows. Reconstructed coronal and sagittal MPR images reviewed. Delayed images for eval uation of the urinary system also acquired and evaluated. All images stored on PACS. All CT scanners at this facility use dose modulation, iterative reconstruction, and/or weight based d osing when appropriate to reduce radiation dose to as low as reasonably achievable (ALARA). [facility]: Dose Right [facility]: CareDose [facility]: Dose Right [facility]: Teradose 4D [facility]: [employer] RADIATION DOSE: CT Rad equipment meets quality standard of care and radiation dose reduction techniq ues were employed. CTDIvol: 11.1 - 15.0 mGy. DLP: 1841 mGy-cm. . LIMITATIONS: None. FINDINGS: CHEST: LUNGS AND PLEURA: There is obstructive lung disease with hyperinflation and hyperlucency of the upper lobes. Minimal bandlike atelectasis or scarring is present at the left lung base. No fluffy alveolar infiltrates worrisome for edema or pneumonia. No worrisome pulmonary nodules. No pleural effusion. No pneumothorax. HILAR AND MEDIASTINAL STRUCTURES: No identified masses or abnormal nodes. HEART AND VASCULAR STRUCTURES: No aneurysm or dissection. No central pulmonary emboli. No pericardi al effusion. HARDWARE: Left-sided permanent central line tip superior vena cava. THYROID AND OTHER SOFT TISSUES: Old postoperative change right lateral breast. Diffuse bilateral kevin ast skin thickening, likely from breast radiation therapy. BONES: There are extensive sclerotic bony metastatic lesions throughout the visualized spine ribs lemuel rnum clavicles scapulae and proximal humeri. These are more apparent than on prior CT chest 03/28/20 17. OTHER: No other significant finding. ABDOMEN AND PELVIS: LIVER: Normal size. No masses. No dilated ducts. SPLEEN: Normal size. No focal lesions. PANCREAS: No masses. No significant calcifications. No adjacent inflammation or peripancreatic fluid collections. Pancreatic duct not dilated. GALLBLADDER: Post cholecystectomy ADRENAL GLANDS: No significant masses or asymmetry. RIGHT KIDNEY AND URETER: No solid masses. No significant calcification. No hydronephrosis or hydroure ter. LEFT KIDNEY AND URETER: No solid masses. No significant calcification. No hydronephrosis or hydrouret er. AORTA AND VESSELS: No aneurysm. No dissection. Renal arteries, SMA, celiac without stenosis. RETROPERITONEUM: No retroperitoneal adenopathy, hemorrhage or masses. BOWEL AND PERITONEAL CAVITY: No masses or inflammatory changes. No free fluid or peritoneal masses. Large amount of stool throughout the colon APPENDIX: Not identified ABDOMINAL WALL: No masses. No hernias. PELVIS: No mass or free fluid. Normal bladder. Normal size female pelvic organs. BONES: Extensive bony metastatic disease throughout the lumbar spine bony pelvis proximal femurs. Robert s progressed since 03/21/2017. OTHER: No other significant finding. IMPRESSION: Progression of sclerotic bony metastatic lesions throughout the skeleton compared to 02/2017 and 03/21/2017. Post therapeutic changes bilateral breasts TECHNICAL DOCUMENTATION: JOB ID: [id number] Quality ID # [id number]: Final reports with documentation of one or more dose reduction techniques (e.g., Au tomated exposure control, adjustment of the mA and/or kV according to patient size, use of iterative reconstruction technique) 2010 [employer]- All Rights Reserved Reading location - IP/workstation name: [email or web address]
== END ==
LOC: RAD 10:39
PROVIDERS: ATTEND Internal Medicine
DX: C50.411 Malignant neoplasm of upper-outer quadrant of right female breast (principal); C79.51 Secondary malignant neoplasm of bone
CPT/HCPCS: 78306; 71260; 74177; A9561; Q9969

== ENCOUNTER 2017-08-30 15:22 | Emergency (ER) | payer MEDICAID ==
--- NOTE | 2017-08-30 16:31 | ER Document Report ---
ED Medical Screen (RME) - General Chief Complaint: Other Stated Complaint: CRAMPING FINGERS AND LEGS Time Seen by Provider: 08/30/17 16:26 Notes: 51-year-old HIV-positive COPD patient with breast cancer on chemotherapy. She states she is having cramping in her fingers and her calves and thinks it is due to dehydration. She does have medication for nausea, she has not been vomiting, she has been keeping down fluids. I have greeted and performed a rapid initial assessment of this patient. A comprehensive ED assessment and evaluation of the patient, analysis of test results and completion of the medical decision making process will be conducted by additional ED providers. TRAVEL OUTSIDE OF THE [place] IN LAST 30 DAYS: No - Related Data Allergies/Adverse Reactions: latex Allergy (Severe, Verified 03/28/17 17:56) blisters,rash morphine [Morphine] Allergy (Severe, Verified 03/28/17 17:56) short of breath Sulfa (Sulfonamide Antibiotics) Allergy (Intermediate, Verified 03/28/17 17:56) rash Plastic tape Adverse Reaction (Uncoded 03/28/17 17:56) Blisters Past Medical History - Social History Chew tobacco use (# tins/day): No Frequency of alcohol use: None Drug Abuse: None - Past Medical History Cardiac Medical History: Denies: Hx Coronary Artery Disease, Hx Heart Attack, Hx Hypertension Pulmonary Medical History: Reports: Hx Asthma, Hx COPD - emphysema, Hx Pneumonia Denies: Hx Bronchitis Neurological Medical History: Denies: Hx Cerebrovascular Accident, Hx Seizures Renal/ Medical History: Denies: Hx Peritoneal Dialysis Malignancy Medical History: Reports: Hx Breast Cancer - Stage IV, mets to L5 and R & L posterior parietal skull. Musculoskeltal Medical History: Reports Hx Arthritis - generalized, Reports Hx Musculoskeletal Deformity, Reports Hx Musculoskeletal Trauma Psychiatric Medical History: Reports: Hx Anxiety Traumatic Medical History: Reports: Hx Fractures Past Surgical History: Reports: Hx Breast Surgery - Right lumpectomy x2 w/ axillary lymph node diseection., Hx Cholecystectomy, Hx Orthopedic Surgery - Left patellar reconstruction, Hx Tonsillectomy, Hx Tubal Ligation. Denies: Hx Hysterectomy - Immunizations Immunizations up to date: Yes Hx Diphtheria, Pertussis, Tetanus Vaccination: Yes Physical Exam - Vital signs Vitals: Temp Pulse Resp BP Pulse Ox 98.2 F 109 H 20 117/33 L 95 08/30/17 15:35 08/30/17 15:35 08/30/17 15:35 08/30/17 15:35 08/30/17 15:35 Course - Vital Signs Vital signs: Temp Pulse Resp BP Pulse Ox 98.2 F 109 H 20 117/33 L 95 08/30/17 15:35 08/30/17 15:35 08/30/17 15:35 08/30/17 15:35 08/30/17 15:35
[2017-08-30 17:21] LABS: ABSOLUTE BASOPHILS # (AUTO) 0.1 10^3/uL (0.0-0.2); ABSOLUTE EOSINOPHILS # (AUTO) 0.1 10^3/uL (0.0-0.6); ABSOLUTE LYMPHOCYTES (AUTO) 0.6 10^3/uL (0.5-4.7); ABSOLUTE MONOCYTES (AUTO) 0.2 10^3/uL (0.1-1.4); ABSOLUTE NEUT (AUTO) 1.5 10^3/uL (1.7-8.2); BASOPHILS % (AUTO) 2.1 % (0-2); EOSINOPHILS % (AUTO) 5.1 % (0-6); HEMATOCRIT 38.8 % (36.0-47.0); HEMOGLOBIN 13.4 g/dL (12.0-15.5); MEAN CORPUSCULAR HEMOGLOBIN 38.5 pg (27.0-33.4); MEAN CORPUSCULAR HGB CONC 34.4 g/dL (32.0-36.0); MONOCYTES % (AUTO) 6.5 % (3-13); PLATELET COUNT 110 10^3/uL (150-450); RED BLOOD COUNT 3.47 10^6/uL (3.72-5.28); RED CELL DISTRIBUTION WIDTH 18.7 % (11.5-14.0); SEGMENTED NEUTROPHILS % (AUTO) 61.3 % (42-78); TOTAL CELLS COUNTED % (AUTO) 100 %; WHITE BLOOD COUNT 2.4 10^3/uL (4.0-10.5)
[2017-08-30 17:30] LABS: ALANINE AMINOTRANSFERASE 29 U/L (9-52); ALBUMIN 3.9 g/dL (3.5-5.0); ALKALINE PHOSPHATASE 114 U/L (38-126); ANION GAP 8 (5-19); ASPARTATE AMINO TRANSFERASE 34 U/L (14-36); BILIRUBIN,DIRECT 0.4 mg/dL (0.0-0.4); BILIRUBIN,TOTAL 0.6 mg/dL (0.2-1.3); BLOOD UREA NITROGEN 21 mg/dL (7-20); CALCIUM 8.9 mg/dL (8.4-10.2); CARBON DIOXIDE 32 mmol/L (22-30); CHLORIDE 102 mmol/L (98-107); GLUCOSE 107 mg/dL (75-110); POTASSIUM 4.2 mmol/L (3.6-5.0); SODIUM 142.4 mmol/L (137-145); TOTAL PROTEIN 6.9 g/dL (6.3-8.2)
[2017-08-30 17:38] LABS: APPEARANCE,URINE CLEAR; BILIRUBIN,URINE NEGATIVE (NEGATIVE); COLOR,URINE YELLOW; GLUCOSE, URINE NEGATIVE (NEGATIVE); KETONES,URINE NEGATIVE (NEGATIVE); LEUKOCYTE ESTERASE,URINE NEGATIVE (NEGATIVE); NITRITE,URINE NEGATIVE (NEGATIVE); PROTEIN,URINE NEGATIVE (NEGATIVE); URINE SPECIFIC GRAVITY 1.015
[2017-08-30 17:45] LABS: MEAN CORPUSCULAR VOLUME 112 fl (80-97)
[2017-08-30 17:48] LABS: ANISOCYTOSIS 2+; OVALOCYTES SLIGHT; PLATELET COMMENT ADEQUATE; POLYCHROMASIA SLIGHT
[2017-08-30] MEDS ORDERED: NORMAL SALINE 1000 ML 1,000 ML IV ONE (19:09)
[2017-08-30] MEDS ORDERED: ONDANSETRON HCL INJ/PF 4 MG/2 ML SDV IV ONE (19:11)
[2017-08-30] MEDS ORDERED: MAGNESIUM SULFATE/D5W 1 GM/100 ML RTUPB IV ONE (19:11)
--- NOTE | 2017-08-30 19:37 | ER Document Report ---
ED General - General Chief Complaint: Other Stated Complaint: CRAMPING FINGERS AND LEGS Time Seen by Provider: 08/30/17 16:26 Notes: Patient is a 51-year-old female with a past medical history of metastatic breast cancer currently on chemotherapy who presents with 3 days of diffuse muscle spasms and aching. Patient describes it as a cramping, aching pain most localized to her calves and hands. She denies a history of similar symptoms in the past. Nothing improves or worsens her symptoms. She denies any fever, nausea, vomiting, headache or altered mental status. She has not spoken to her primary care doctor or oncologist regarding these concerns. She denies any recent falls or trauma. She denies any focal weakness or numbness. No rashes. Patient does report that she has had persistent nausea and vomiting oral intake over this time period. However she denies any localized abdominal pain. She notes that she frequently has nausea and vomiting secondary to chemotherapy. Patient states she is concerned that she is dehydrated. TRAVEL OUTSIDE OF THE [place] IN LAST 30 DAYS: No - Related Data Allergies/Adverse Reactions: latex Allergy (Severe, Verified 03/28/17 17:56) blisters,rash morphine [Morphine] Allergy (Severe, Verified 03/28/17 17:56) short of breath Sulfa (Sulfonamide Antibiotics) Allergy (Intermediate, Verified 03/28/17 17:56) rash Plastic tape Adverse Reaction (Uncoded 03/28/17 17:56) Blisters Past Medical History - General Information source: Patient - Social History Smoking Status: Current Every Day Smoker Chew tobacco use (# tins/day): No Frequency of alcohol use: None Drug Abuse: None Lives with: Family Family History: Reviewed & Not Pertinent Patient has suicidal ideation: No Patient has homicidal ideation: No - Past Medical History Cardiac Medical History: Denies: Hx Coronary Artery Disease, Hx Heart Attack, Hx Hypertension Pulmonary Medical History: Reports: Hx Asthma, Hx COPD - emphysema, Hx Pneumonia Denies: Hx Bronchitis Neurological Medical History: Denies: Hx Cerebrovascular Accident, Hx Seizures Renal/ Medical History: Denies: Hx Peritoneal Dialysis Malignancy Medical History: Reports: Hx Breast Cancer - Stage IV, mets to L5 and R & L posterior parietal skull. Musculoskeltal Medical History: Reports Hx Arthritis - generalized, Reports Hx Musculoskeletal Deformity, Reports Hx Musculoskeletal Trauma Psychiatric Medical History: Reports: Hx Anxiety Traumatic Medical History: Reports: Hx Fractures Past Surgical History: Reports: Hx Breast Surgery - Right lumpectomy x2 w/ axillary lymph node diseection., Hx Cholecystectomy, Hx Orthopedic Surgery - Left patellar reconstruction, Hx Tonsillectomy, Hx Tubal Ligation. Denies: Hx Hysterectomy - Immunizations Immunizations up to date: Yes Hx Diphtheria, Pertussis, Tetanus Vaccination: Yes Hx Pneumococcal Vaccination: 01/26/15 Review of Systems - Review of Systems Notes: Constitutional: Negative for fever. HENT: Negative for sore throat. Eyes: Negative for visual changes. Cardiovascular: Negative for chest pain. Respiratory: Negative for shortness of breath. Gastrointestinal: Negative for abdominal pain, positive for nausea and vomiting Genitourinary: Negative for dysuria. Musculoskeletal: Positive for muscle spasms and cramping Skin: Negative for rash. Neurological: Negative for headaches, weakness or numbness. 10 point ROS negative except as marked above and in HPI. Physical Exam - Vital signs Vitals: Temp Pulse Resp BP Pulse Ox 98.2 F 109 H 20 117/33 L 95 08/30/17 15:35 08/30/17 15:35 08/30/17 15:35 08/30/17 15:35 08/30/17 15:35 Interpretation: Tachycardic Notes: PHYSICAL EXAMINATION: GENERAL: Appears much older than stated age. Patient on the room. Drinking Mountain Dew. HEAD: Atraumatic, normocephalic. EYES: Pupils equal round and reactive to light, extraocular movements intact, sclera anicteric, conjunctiva are normal. ENT: nares patent, oropharynx clear without exudates. Dry mucous membranes. NECK: Normal range of motion, supple without lymphadenopathy LUNGS: Breath sounds clear to auscultation bilaterally and equal. Faint expiratory wheezing in all lung welsh. HEART: Regular tachycardia without murmurs ABDOMEN: Soft, nontender, normoactive bowel sounds. No guarding, no rebound. No masses appreciated. EXTREMITIES: no pitting or edema. No cyanosis. NEUROLOGICAL: No focal neurological deficits. Moves all extremities spontaneously and on command. PSYCH: Somewhat agitated SKIN: Warm, Dry, normal turgor, no rashes or lesions noted. Course - Re-evaluation Re-evalutation: 08/30/17 19:14 Patient presents with complaints of muscle cramping and fatigue as well as dehydration. She reports that she has been unable to tolerate oral fluids for the past 3 days although is drinking a Mountain Dew at the time of my assessment. She states this is the first fluid she has been able to tolerate over the past 3 days. She states she has not urinated in over 14 hours. Patient's vitals do show mild tachycardia. Her labs show mild neutropenia although improved from her more recent assessment several days ago. She has no additional focal findings on examination but does appear quite dehydrated. I suspect some of her muscle cramping and spasming is secondary to dehydration and will provide IV fluids, IV magnesium, IV Zofran and allow her to continue to p.o. challenge. If patient continues to tolerate oral intake without difficulty will plan for discharge home with return precautions and follow-up recommendations. - Vital Signs Vital signs: Temp Pulse Resp BP Pulse Ox 98.7 F 95 16 120/86 H 98 08/30/17 21:24 08/30/17 21:24 08/30/17 21:24 08/30/17 21:24 08/30/17 21:24 - Laboratory Result Diagrams: 08/30/17 17:00 08/30/17 17:00 Laboratory results interpreted by me: 08/30/17 08/30/17 08/30/17 17:00 17:00 17:00 WBC 2.4 L RBC 3.47 L MCV 112 H MCH 38.5 H RDW 18.7 H Plt Count 110 L Basophils % 2.1 H Absolute Neutrophils 1.5 L Carbon Dioxide 32 H BUN 21 H Est GFR (Non-Af Amer) 55 L Urine Urobilinogen 2.0 H Urine Ascorbic Acid 40 H Discharge - Discharge Clinical Impression: Dehydration, Metastatic breast cancer, Muscle cramps Nausea and vomiting Qualifiers: Vomiting type: unspecified Vomiting Intractability: non-intractable Qualified Code(s): R11.2 - Nausea with vomiting, unspecified Condition: Good Disposition: HOME, SELF-CARE Additional Instructions: Your symptoms today are likely due to dehydration. Please follow-up with your oncologist in the next several days. Return if you have recurrence of persistent vomiting, focal weakness or numbness, severe headache, fever greater than 100.4F, or any other symptoms that are worrisome to you. Referrals: CRUZ COOK MD [Primary Care Provider] - Follow up as needed
[2017-08-30 21:25] VITALS: BP 120/86
[2017-09-01 16:19] LABS: PATH REVIEW PATHOLOGIST REVIEWED
== END 2017-08-30 21:25 | disposition home or self-care (01) ==
LOC: ER 15:22
DX: C79.81 Secondary malignant neoplasm of breast (principal); E86.0 Dehydration; R11.2 Nausea with vomiting, unspecified; R25.2 Cramp and spasm; Z91.040 Latex allergy status; Z88.2 Allergy status to sulfonamides; Z88.6 Allergy status to analgesic agent; Z90.49 Acquired absence of other specified parts of digestive tract
CPT/HCPCS: 36591; 99284; 96375; 96365; 36415; 87040; 83735; 85025; 80053; 81001; J3475; J2405; J7030

== ENCOUNTER 2017-09-02 15:02 | Outpatient (CLI) | payer MEDICAID ==
[~2017-09-02 15:02] MED LIST changes: -LIDOCAINE 2% INJ (20 MG/ML) 20 ML MDV ONE; +NORMAL SALINE 1000 ML 1,000 ML IV PRN; +ONDANSETRON HCL INJ/PF 4 MG/2 ML SDV IV PRN
[2017-09-02 16:50] VITALS: BP 111/72
== END 2017-09-02 16:32 | disposition home or self-care (01) ==
LOC: II 15:02 → 5TH 15:05 → II 16:32
PROVIDERS: ATTEND Internal Medicine
PROC: 3E0437Z Introduction of Electrolytic and Water Balance Substance into Central Vein, Percutaneous Approach (ICD-10-PCS; principal; 2017-09-02)
PROC: 3E043GC Introduction of Other Therapeutic Substance into Central Vein, Percutaneous Approach (ICD-10-PCS; 2017-09-02)
DX: E86.0 Dehydration (principal); R11.0 Nausea; C50.411 Malignant neoplasm of upper-outer quadrant of right female breast
CPT/HCPCS: 96367; 96360; J2405; 96361; 96374

== ENCOUNTER → 2017-10-29 | Outpatient (CLI) | payer MEDICAID ==
[2017-10-29 09:32] LABS: APPEARANCE,URINE CLEAR; BILIRUBIN,URINE NEGATIVE (NEGATIVE); COLOR,URINE YELLOW; GLUCOSE, URINE NEGATIVE (NEGATIVE); KETONES,URINE NEGATIVE (NEGATIVE); LEUKOCYTE ESTERASE,URINE NEGATIVE (NEGATIVE); NITRITE,URINE NEGATIVE (NEGATIVE); PROTEIN,URINE NEGATIVE (NEGATIVE); URINE SPECIFIC GRAVITY 1.025; UROBILINOGEN,URINE NEGATIVE mg/dL (<2.0)
--- NOTE | 2017-10-29 09:34 | RADIOLOGY REPORT (SQ) ---
EXAM DESCRIPTION: CT CHEST WITH; CT ABD/PELVIS WITH IV ORAL COMPLETED DATE/TIME: 10/29/2017 8:58 am; 10/29/2017 8:59 am REASON FOR STUDY: BREAST CA (C50.411) C50.411 MALIG NEOPLM OF UPPER-OUTER QUADRANT OF RIGHT FEMALE COMPARISON: CT CHEST ABDOMEN PELVIS 08/06/2017, 03/21/2017, 07/09/2016 CONTRAST TYPE AND DOSE: contrast/concentration: Isovue 370.00 mg/ml; Total Contrast Delivered: 91.0 ml; Total Saline Delivered: 70.0 ml RENAL FUNCTION: Creatinine 0.9 TECHNIQUE: CT scan of the chest performed using helical scanning technique with dynamic intravenous contrast injection. Images reviewed with lung, soft tissue and bone windows. Reconstructed coronal a nd sagittal MPR images reviewed. All images stored on PACS. CT scan of the abdomen and pelvis performed with intravenous and with oral contrastusing helical scan luci technique with dynamic intravenous contrast injection. Images reviewed with lung, soft tissue a nd bone windows. Reconstructed coronal and sagittal MPR images reviewed. Delayed images for evaluat ion of the urinary system also acquired and evaluated. All images stored on PACS. All CT scanners at this facility use dose modulation, iterative reconstruction, and/or weight based d osing when appropriate to reduce radiation dose to as low as reasonably achievable (ALARA). [facility]: Dose Right [facility]: CareDose [facility]: Dose Right [facility]: Teradose 4D [facility]: [employer] RADIATION DOSE: CT Rad equipment meets quality standard of care and radiation dose reduction techniq ues were employed. CTDIvol: 8.9 - 14.8 mGy. DLP: 2653 mGy-cm. . LIMITATIONS: None. FINDINGS: CHEST: LUNGS AND PLEURA: No opacities, nodules, masses. No pneumothorax. No effusions. Obstructive lung di sease. HILAR AND MEDIASTINAL STRUCTURES: No identified masses or abnormal nodes. HEART AND VASCULAR STRUCTURES: No aneurysm or dissection. No central pulmonary emboli. No pericardi al effusion. HARDWARE: None. THYROID AND OTHER SOFT TISSUES: No masses. No adenopathy. Stable post therapeutic changes bilateral breasts. BONES: Stable diffuse skeletal metastatic lesions OTHER: Left-sided permanent central line tip superior vena cava. ABDOMEN AND PELVIS: LIVER: Normal size. No masses. Mild prominence of the left-sided intrahepatic bile ducts, stable com pared to previous studies likely representing benign post cholecystectomy change. SPLEEN: Normal size. No focal lesions. PANCREAS: No masses. No significant calcifications. No adjacent inflammation or peripancreatic fluid collections. Pancreatic duct not dilated. GALLBLADDER: Surgically absent ADRENAL GLANDS: No significant masses or asymmetry. RIGHT KIDNEY AND URETER: No solid masses. No significant calcification. No hydronephrosis or hydroure ter. LEFT KIDNEY AND URETER: No solid masses. No significant calcification. No hydronephrosis or hydrouret er. AORTA AND VESSELS: No aneurysm. No dissection. Renal arteries, SMA, celiac without stenosis. RETROPERITONEUM: No retroperitoneal adenopathy, hemorrhage or masses. BOWEL AND PERITONEAL CAVITY: No masses or inflammatory changes. No free fluid or peritoneal masses. Patient drank oral contrast. No CT signs of bowel obstruction. APPENDIX: Normal. ABDOMINAL WALL: No masses. No hernias. PELVIS: No mass or free fluid. Normal bladder. Normal size female pelvic organs. BONES: Stable diffuse skeletal metastatic lesions. OTHER: No other significant finding. IMPRESSION: Post therapeutic changes bilateral breasts. Stable diffuse skeletal metastatic lesions. Post cholecystectomy. TECHNICAL DOCUMENTATION: JOB ID: [id number] Quality ID # 436: Final reports with documentation of one or more dose reduction techniques (e.g., Au tomated exposure control, adjustment of the mA and/or kV according to patient size, use of iterative reconstruction technique) 2010 [employer]- All Rights Reserved Reading location - IP/workstation name: [facility]
[2017-10-29 09:44] LABS: HEMATOCRIT 37.6 % (36.0-47.0); HEMOGLOBIN 12.9 g/dL (12.0-15.5); MEAN CORPUSCULAR HGB CONC 34.5 g/dL (32.0-36.0); MEAN CORPUSCULAR VOLUME 113 fl (80-97); RED BLOOD COUNT 3.32 10^6/uL (3.72-5.28); RED CELL DISTRIBUTION WIDTH 15.3 % (11.5-14.0); WHITE BLOOD COUNT 1.7 10^3/uL (4.0-10.5)
[2017-10-29 09:58] LABS: ALANINE AMINOTRANSFERASE 36 U/L (9-52); ALBUMIN 3.2 g/dL (3.5-5.0); ALKALINE PHOSPHATASE 71 U/L (38-126); ANION GAP 7 (5-19); ASPARTATE AMINO TRANSFERASE 44 U/L (14-36); BILIRUBIN,DIRECT 0.4 mg/dL (0.0-0.4); BILIRUBIN,TOTAL 0.5 mg/dL (0.2-1.3); BLOOD UREA NITROGEN 11 mg/dL (7-20); CARBON DIOXIDE 31 mmol/L (22-30); CHLORIDE 106 mmol/L (98-107); CHOLESTEROL 138.09 mg/dL (0-200); GLUCOSE 65 mg/dL (75-110); POTASSIUM 4.4 mmol/L (3.6-5.0); SODIUM 143.8 mmol/L (137-145); TOTAL PROTEIN 6.1 g/dL (6.3-8.2); TRIGLYCERIDES 91 mg/dL (<150)
[2017-10-29 10:10] LABS: DIRECT LDL 72 mg/dL (<100)
--- NOTE | 2017-10-29 10:25 | RADIOLOGY REPORT (SQ) ---
EXAM DESCRIPTION: CT HEAD COMBO COMPLETED DATE/TIME: 10/29/2017 8:58 am REASON FOR STUDY: BREAST CA (C50.411) C50.411 MALIG NEOPLM OF UPPER-OUTER QUADRANT OF RIGHT FEMALE COMPARISON: Bone scan 08/06/2017 TECHNIQUE: Axial images acquired through the brain without and with intravenous contrast. Images re viewed with bone, brain and subdural windows. Additional sagittal and coronal reconstructions were g enerated. Images stored on PACS. All CT scanners at this facility use dose modulation, iterative reconstruction, and/or weight based d osing when appropriate to reduce radiation dose to as low as reasonably achievable (ALARA). [facility]: Dose Right [facility]: CareDose [facility]: Dose Right [facility]: Teradose 4D [facility]: [employer] CONTRAST TYPE AND DOSE: 91 mL Isovue 370- low osmolar. RENAL FUNCTION: Creatinine 0.9 RADIATION DOSE: CT Rad equipment meets quality standard of care and radiation dose reduction techniq ues were employed. CTDIvol: 48.6 mGy. DLP: 929 mGy-cm.. LIMITATIONS: None. FINDINGS: VENTRICLES: Normal size and contour. CEREBRUM: No masses. No hemorrhage. No midline shift. Normal pacheco/white matter differentiation. No ev idence for acute infarction. No enhancing lesions. CEREBELLUM: No masses. No hemorrhage. No alteration of density. No evidence for acute infarction. No enhancing lesions. EXTRA-AXIAL SPACES: No fluid collections. No enhancing lesions. ORBITS AND GLOBE: No intra- or extraconal masses. Normal contour of globe without masses. CALVARIUM: Multiple sclerotic bony metastatic lesions are present, similar compared to bone scan 08/06 PARANASAL SINUSES: No fluid or mucosal thickening. SOFT TISSUES: No mass or hematoma. OTHER: No other significant finding. IMPRESSION: Calvarial metastatic lesions. No abnormal brain parenchymal or dural enhancement by CT. No acute findings EVIDENCE OF ACUTE STROKE: NO. TECHNICAL DOCUMENTATION: JOB ID: [id number] Quality ID # 436: Final reports with documentation of one or more dose reduction techniques (e.g., Au tomated exposure control, adjustment of the mA and/or kV according to patient size, use of iterative reconstruction technique) 2010 [employer]- All Rights Reserved Reading location - IP/workstation name: [facility]
[2017-10-29 10:40] LABS: PLATELET COUNT 90 10^3/uL (150-450)
[2017-10-29 10:43] LABS: ABSOLUTE LYMPHOCYTES# (MANUAL) 0.4 10^3/uL (0.5-4.7); ABSOLUTE MONOCYTES # (MANUAL) 0.1 10^3/uL (0.1-1.4); ABSOLUTE NEUTROPHILS# (MANUAL) 1.1 10^3/uL (1.7-8.2); BASOPHILS % (MANUAL) 3 % (0-2); EOSINOPHILS % (MANUAL) 4 % (0-6); LYMPHOCYTES % (MANUAL) 21 % (13-45); MONOCYTES % (MANUAL) 6 % (3-13); SEGMENTED NEUTROPHILS % (MAN) 64 % (42-78); TOTAL CELLS COUNTED 100
[2017-10-29 10:44] LABS: ANISOCYTOSIS SLIGHT; HYPOCHROMASIA SLIGHT; PLATELET COMMENT DECREASED; POLYCHROMASIA SLIGHT
[2017-10-29 11:06] LABS: CHLAM PCR NOT DETECTED (NOT DETECT); GON PCR NOT DETECTED (NOT DETECT)
--- NOTE | 2017-10-29 15:23 | RADIOLOGY REPORT (SQ) ---
EXAM DESCRIPTION: NM WHOLE BODY BONE SCAN COMPLETED DATE/TIME: 10/29/2017 12:10 pm REASON FOR STUDY: BREAST CA (C50.411) C50.411 MALIG NEOPLM OF UPPER-OUTER QUADRANT OF RIGHT FEMALE COMPARISON: Bone scans 08/06/2017, 11/27/2016, 07/19/2016, 02/14/2014 RADIONUCLIDE AND DOSE: 21.6 millicuries Tc99m MDP. The route of agent administration: Intravenous. ADDITIONAL DRUGS AND DOSES: None. TECHNIQUE: Routine delayed images at 3 hour post radionuclide injection acquired of the bony skeleto n including anterior and posterior whole-body projections and additional focused images as needed. LIMITATIONS: None. FINDINGS: No new skeletal lesions are identified. Left midshaft femur lesion seen on 02/14/2014 is no longer identified. Stable increased uptake is seen in the calvarium, spine, sternum, pelvis, and long bones. IMPRESSION: Stable bone scan compared to 08/06/2017, 11/27/2016 and 07/19/2016. COMMENT: Quality measure 147: Current bone scan is compared with any available plain radiographs, p rior bone scans, and CT/MRI. TECHNICAL DOCUMENTATION: JOB ID: [id number] [employer]- All Rights Reserved Reading location - IP/workstation name: [email or web address]
[2017-10-30 11:39] LABS: ABSOLUTE CD 4 HELPER 120 /uL (359-1519); BASOPHILS (ABSOLUTE) 0.1 x10E3/uL (0.0-0.2); CD BASOPHILS 3 % (Not Estab.); CD EOSINOPHILS 5 % (Not Estab.); CD MONOCYTES 8 % (Not Estab.); CD NEUTROPHILS 62 % (Not Estab.); EOSINOPHILS (ABSOLUTE) 0.1 x10E3/uL (0.0-0.4); HEMOGLOBIN 12.6 g/dL (11.1-15.9); IMMATURE GRANULOCYTES 1 % (Not Estab.); LYMPHS(ABSOLUTE) 0.4 x10E3/uL (0.7-3.1); MCH 37.3 pg (26.6-33.0); MCHC 33.3 g/dL (31.5-35.7); MCV 112 fL (79-97); MONOCYTES(ABSOLUTE) 0.1 x10E3/uL (0.1-0.9); NEUTROPHILS(ABSOLUTE) 1.1 x10E3/uL (1.4-7.0); RBC 3.38 x10E6/uL (3.77-5.28); RDW 15.7 % (12.3-15.4); WBC 1.7 x10E3/uL (3.4-10.8)
[2017-10-30 13:03] LABS: PLATELETS 99 x10E3/uL (150-379)
[2017-10-31 13:56] LABS: HIV-1 RNA PCR QUANT <20 copies/mL (.)
== END ==
LOC: RAD 08:15
PROVIDERS: ATTEND Internal Medicine
DX: C50.411 Malignant neoplasm of upper-outer quadrant of right female breast (principal); Z11.3 Encounter for screening for infections with a predominantly sexual mode of transmission; B20 Human immunodeficiency virus [HIV] disease; Z79.899 Other long term (current) drug therapy
CPT/HCPCS: 36415; 85025; 86592; 87536; 80053; 81001; 86361; 87491; 87591; 80061; 78306; 70470; 71260; 74177; A9561; Q9969

== ENCOUNTER 2017-11-27 23:20 | Emergency (ER) | payer MEDICAID ==
--- NOTE | 2017-11-28 00:31 | ER Document Report ---
ED Medical Screen (RME) - General Chief Complaint: Headache Stated Complaint: HEAD PAIN Time Seen by Provider: 11/28/17 00:29 Mode of Arrival: Ambulatory Information source: Patient Notes: 50-year-old female presented to ED for headaches with metastatic brain lesions to the landing of the skull. She states her pain is a level 4-5. She has an appointment on Friday with Dr. Adeel wing. She states she is on oxycodone 30 and fentanyl 100 mcg. She states she had a recent CT that shows this metastases to the head. She states she has had the headaches since October 17 and she asked for the CT scans. She states she is coming in today because you want a MRI of her head. She states she got plenty medicine at home but is not doing any good anyway. I have greeted and performed a rapid initial assessment of this patient. A comprehensive ED assessment and evaluation of the patient, analysis of test results and completion of medical decision making process will be conducted by an additional ED providers. TRAVEL OUTSIDE OF THE [place] IN LAST 30 DAYS: No - Related Data Allergies/Adverse Reactions: latex Allergy (Severe, Verified 03/28/17 17:56) blisters,rash morphine [Morphine] Allergy (Severe, Verified 03/28/17 17:56) short of breath Sulfa (Sulfonamide Antibiotics) Allergy (Intermediate, Verified 03/28/17 17:56) rash Plastic tape Adverse Reaction (Uncoded 03/28/17 17:56) Blisters Past Medical History - Past Medical History Cardiac Medical History: Denies: Hx Coronary Artery Disease, Hx Heart Attack, Hx Hypertension Pulmonary Medical History: Reports: Hx Asthma, Hx COPD - emphysema, Hx Pneumonia Denies: Hx Bronchitis Neurological Medical History: Denies: Hx Cerebrovascular Accident, Hx Seizures Renal/ Medical History: Denies: Hx Peritoneal Dialysis Malignancy Medical History: Reports: Hx Breast Cancer - Stage IV, mets to L5 and R & L posterior parietal skull. Musculoskeltal Medical History: Reports Hx Arthritis - generalized, Reports Hx Musculoskeletal Deformity, Reports Hx Musculoskeletal Trauma Psychiatric Medical History: Reports: Hx Anxiety Traumatic Medical History: Reports: Hx Fractures Past Surgical History: Reports: Hx Breast Surgery - Right lumpectomy x2 w/ axillary lymph node diseection., Hx Cholecystectomy, Hx Orthopedic Surgery - Left patellar reconstruction, Hx Tonsillectomy, Hx Tubal Ligation. Denies: Hx Hysterectomy - Immunizations Immunizations up to date: Yes Hx Diphtheria, Pertussis, Tetanus Vaccination: Yes Physical Exam - Vital signs Vitals: Temp Pulse Resp BP Pulse Ox 98.1 F 104 H 18 97/68 L 94 11/27/17 23:20 11/27/17 23:20 11/27/17 23:20 11/27/17 23:20 11/27/17 23:20 Course - Vital Signs Vital signs: Temp Pulse Resp BP Pulse Ox 98.1 F 104 H 18 97/68 L 94 11/27/17 23:20 11/27/17 23:20 11/27/17 23:20 11/27/17 23:20 11/27/17 23:20 Doctor's Discharge - Discharge Referrals: CURZ COOK MD [Primary Care Provider] - Follow up as needed
[2017-11-28] MEDS ORDERED: NORMAL SALINE 1000 ML 1,000 ML IV ONE (01:50)
[2017-11-28 02:44] LABS: ANION GAP 11 (5-19); BLOOD UREA NITROGEN 23 mg/dL (7-20); CALCIUM 8.9 mg/dL (8.4-10.2); CARBON DIOXIDE 27 mmol/L (22-30); CHLORIDE 106 mmol/L (98-107); GLUCOSE 104 mg/dL (75-110); POTASSIUM 3.7 mmol/L (3.6-5.0)
--- NOTE | 2017-11-28 03:59 | RADIOLOGY REPORT (SQ) ---
EXAM DESCRIPTION: CT HEAD WITHOUT THEN WITH IV CONTRAST COMPLETED DATE/TME: 11/28/2017 01:50 EXAM DESCRIPTION: CT of the head without contrast CLINICAL HISTORY: metastatic breast cancer with worsening pain. BUN23 CREAT 1.14 COMPARISON: None available TECHNIQUE: Axial CT of the head obtained from the skull apex to the skull base before and after the uncomplicated intravenous administration of 50 mL Isovue-370. FINDINGS: No acute intracranial hemorrhage identified. No mass, mass effect, shift of the midline, abnormal extra-axial fluid collection or CT evidence of acute ischemic change identified. The ventricular system is unremarkable. No acute abnormalities of the supratentorial white matter, basal ganglia, cerebellum, or brainstem. No enhancing abnormalities identified. Minimal fluid in the right mastoid air cells. Diffuse sclerotic lesions identified. The calvarium. Visualized orbits and globes are unremarkable. DLP: 1857.71 mGy-cm IMPRESSION: 1. No acute intracranial abnormality identified. No enhancing masses definitely identified. 2. Extensive sclerotic metastatic disease throughout the visualized calvarium and visualized cervical spine.. This exam was performed according to our departmental dose-optimization program, which includes automated exposure control, adjustment of the mA and/or kV according to patient size and/or use of iterative reconstruction technique.
--- NOTE | 2017-11-28 04:24 | ER Document Report ---
ED General - General Chief Complaint: Headache Stated Complaint: HEAD PAIN Time Seen by Provider: 11/28/17 00:29 Mode of Arrival: Ambulatory Notes: Patient is a 51-year-old female presents with complaint of headache and then some pain going into her face and some tingling type sensation going to her face. Patient initially said that this is new in the last week. Later on she said that she has had a lot of the symptoms since September. She does have a history of stage IV breast cancer with metastasis. She has known metastasis to the bones of the skull and back. She said that she did not receive her report from Dr. Cook and therefore went to medical records and got the report of her CT scan of her head and saw that she had all these metastatic lesions and therefore came worried and felt that her symptoms are gotten worse and therefore is come to the ER. She denies any focal weakness into her arms or legs. No other complaints at this time. TRAVEL OUTSIDE OF THE [place] IN LAST 30 DAYS: No - Related Data Allergies/Adverse Reactions: latex Allergy (Severe, Verified 11/28/17 03:11) blisters,rash morphine [Morphine] Allergy (Severe, Verified 11/28/17 03:11) short of breath Sulfa (Sulfonamide Antibiotics) Allergy (Intermediate, Verified 11/28/17 03:11) rash Plastic tape Adverse Reaction (Uncoded 03/28/17 17:56) Blisters Past Medical History - General Information source: Patient - Social History Smoking Status: Current Every Day Smoker Chew tobacco use (# tins/day): No Frequency of alcohol use: None Drug Abuse: None Family History: Reviewed & Not Pertinent Patient has suicidal ideation: No Patient has homicidal ideation: No - Past Medical History Cardiac Medical History: Denies: Hx Coronary Artery Disease, Hx Heart Attack, Hx Hypertension Pulmonary Medical History: Reports: Hx Asthma, Hx COPD - emphysema, Hx Pneumonia Denies: Hx Bronchitis Neurological Medical History: Denies: Hx Cerebrovascular Accident, Hx Seizures Renal/ Medical History: Denies: Hx Peritoneal Dialysis Malignancy Medical History: Reports: Hx Breast Cancer - Stage IV, mets to L5 and R & L posterior parietal skull. Musculoskeletal Medical History: Reports Hx Arthritis - generalized, Reports Hx Musculoskeletal Deformity, Reports Hx Musculoskeletal Trauma Psychiatric Medical History: Reports: Hx Anxiety Traumatic Medical History: Reports: Hx Fractures Past Surgical History: Reports: Hx Breast Surgery - Right lumpectomy x2 w/ axillary lymph node diseection., Hx Cholecystectomy, Hx Orthopedic Surgery - Left patellar reconstruction, Hx Tonsillectomy, Hx Tubal Ligation. Denies: Hx Hysterectomy - Immunizations Immunizations up to date: Yes Hx Diphtheria, Pertussis, Tetanus Vaccination: Yes Hx Pneumococcal Vaccination: 01/26/15 Review of Systems - Review of Systems Notes: My Normal Review Basic REVIEW OF SYSTEMS: CONSTITUTIONAL : Denies fever, chills, or sweats. Denies recent illness. RESPIRATORY: Denies cough, cold, or chest congestion. Denies shortness of breath, difficulty breathing, or wheezing. GASTROINTESTINAL: Denies abdominal pain. Denies nausea, vomiting, or diarrhea. Denies constipation. Last BM: GENITOURINARY: Denies difficulty urinating, painful urination, burning, frequency, or blood in urine. FEMALE GENITOURINARY: Denies vaginal bleeding, abnormal or irregular periods. LMP: MUSCULOSKELETAL: Chronic back pain. SKIN: Denies rash or skin lesions. NEUROLOGICAL: Denies altered mental status or loss of consciousness. Has a mild headache. Tingling type sensation to face. ALL OTHER SYSTEMS REVIEWED AND NEGATIVE. Physical Exam - Vital signs Vitals: Temp Pulse Resp BP Pulse Ox 98.1 F 104 H 18 97/68 L 94 11/27/17 23:20 11/27/17 23:20 11/27/17 23:20 11/27/17 23:20 11/27/17 23:20 - Notes Notes: General Appearance: Well nourished, alert, cooperative, no acute distress, no obvious discomfort. Vitals: reviewed, See vital signs table. Head: no swelling or tenderness to the head Eyes: PERRL, EOMI, Conjuctiva clear Mouth: No decreasd moisture Neck: Supple, no neck tenderness, No thyromegaly Lungs: No wheezing, No rales, No rhonci, No accessory muscle use, good air exchange bilaterally. Heart: Normal rate, Regular rythm, No murmur, no rub Abdomen: Normal BS, soft, No rigidity, No abdominal tenderness, No guarding, no rebound, no abdominal masses, no organomegaly Extremities: strength 5/5 in all extremities, good pulses in all extremities, no swelling or tenderness in the extremities, no edema. Skin: warm, dry, appropriate color, no rash Neuro: speech clear, oriented x 3, normal affect, responds appropriately to questions. Cranial nerves II through XII are intact. Distal sensation intact. Patient has good strength in all 4 extremities except for some weakness in her lower leg which she says is chronic and unchanged. Patient does walk with a cane. She is able to walk with her cane and says that her gait is normal for her. Course - Re-evaluation Re-evalutation: 11/28/17 07:10 I did repeat the patient's CT scan. Does show that she has continued occlusions in the skull. She is also now starting to show some in the upper cervical spine on the scan. She has not had any weakness or numbness into her upper extremities. She does not have any lesions compressing or pushing on the brain parenchyma. Patient has no further concerns or questions at this time. I encouraged her follow-up closely with Dr. Cook. She has appointment with him on Friday. I encouraged her return to ER immediately if she has worsening pain, confusion, any worsening neurologic symptoms, or if she has any further concerns. Patient agrees with plan will be discharged home. Dictation of this chart was performed using voice recognition software; therefore, there may be some unintended grammatical errors. - Vital Signs Vital signs: Temp Pulse Resp BP Pulse Ox 97.9 F 95 14 101/59 L 90 L 11/28/17 04:31 11/28/17 04:31 11/28/17 04:31 11/28/17 04:31 11/28/17 04:31 - Laboratory Result Diagrams: 11/28/17 02:24 Laboratory results interpreted by me: 11/28/17 02:24 BUN 23 H Est GFR (Non-Af Amer) 50 L Discharge - Discharge Clinical Impression: Breast cancer, stage 4 Qualifiers: Laterality: unspecified laterality Qualified Code(s): C50.919 - Malignant neoplasm of unspecified site of unspecified female breast Metastasis Qualifiers: Area of secondary neoplastic involvement: bone Qualified Code(s): C79.51 - Secondary malignant neoplasm of bone Condition: Good Disposition: HOME, SELF-CARE Additional Instructions: Please follow p with Dr. Cook for continued care for your cancer. Please return to the ER if you have any further concerns. Referrals: CRUZ COOK MD [ACTIVE STAFF] - 12/02/17
[2017-11-28 04:36] VITALS: BP 101/59
== END 2017-11-28 04:36 | disposition home or self-care (01) ==
LOC: ER 23:20
DX: C50.919 Malignant neoplasm of unspecified site of unspecified female breast (principal); C79.51 Secondary malignant neoplasm of bone; R51 Headache; R20.2 Paresthesia of skin; F17.200 Nicotine dependence, unspecified, uncomplicated; Z91.040 Latex allergy status; Z88.6 Allergy status to analgesic agent; Z88.2 Allergy status to sulfonamides; Z90.49 Acquired absence of other specified parts of digestive tract
CPT/HCPCS: 99284; 96360; 96361; 36415; 80048; 70470; J7030

== ENCOUNTER 2017-12-05 16:19 | Emergency (ER) | payer MEDICAID ==
[2017-12-05] MEDS ORDERED: METOCLOPRAMIDE HCL ORAL SOLN 10 MG/10 ML UDCUP PO ONE (17:40)
[2017-12-05] MEDS ORDERED: LIDOCAINE 2% VISCOUS SOLN 20 ML UDCUP PO ONE (17:40)
[2017-12-05] MEDS ORDERED: MAG HYDROX/AL HYDROX/SIMETH SUSP 30 ML UDCUP PO ONE (17:40)
--- NOTE | 2017-12-05 17:41 | ER Document Report ---
ED Medical Screen (RME) - General Chief Complaint: Abdominal Pain Stated Complaint: ABDOMINAL PAIN Time Seen by Provider: 12/05/17 16:59 TRAVEL OUTSIDE OF THE [place] IN LAST 30 DAYS: No - HPI Patient complains to provider of: Abdominal pain Notes: 12/05/17 17:41 Patient is a 51-year-old female with a history of metastatic breast cancer, presenting to the emergency room today complaining of epigastric abdominal pain after eating a sub-at [employer], no diarrhea - Related Data Allergies/Adverse Reactions: latex Allergy (Severe, Verified 11/28/17 03:11) blisters,rash morphine [Morphine] Allergy (Severe, Verified 11/28/17 03:11) short of breath Sulfa (Sulfonamide Antibiotics) Allergy (Intermediate, Verified 11/28/17 03:11) rash Plastic tape Adverse Reaction (Uncoded 03/28/17 17:56) Blisters Past Medical History - Past Medical History Cardiac Medical History: Denies: Hx Coronary Artery Disease, Hx Heart Attack, Hx Hypertension Pulmonary Medical History: Reports: Hx Asthma, Hx COPD - emphysema, Hx Pneumonia Denies: Hx Bronchitis Neurological Medical History: Denies: Hx Cerebrovascular Accident, Hx Seizures Renal/ Medical History: Denies: Hx Peritoneal Dialysis Malignancy Medical History: Reports: Hx Breast Cancer - Stage IV, mets to L5 and R & L posterior parietal skull. Musculoskeltal Medical History: Reports Hx Arthritis - generalized, Reports Hx Musculoskeletal Deformity, Reports Hx Musculoskeletal Trauma Psychiatric Medical History: Reports: Hx Anxiety Traumatic Medical History: Reports: Hx Fractures Past Surgical History: Reports: Hx Breast Surgery - Right lumpectomy x2 w/ axillary lymph node diseection., Hx Cholecystectomy, Hx Orthopedic Surgery - Left patellar reconstruction, Hx Tonsillectomy, Hx Tubal Ligation. Denies: Hx Hysterectomy - Immunizations Immunizations up to date: Yes Hx Diphtheria, Pertussis, Tetanus Vaccination: Yes Physical Exam - Vital signs Vitals: Temp Pulse Resp BP Pulse Ox 97.9 F 100 20 110/75 94 12/05/17 16:50 12/05/17 16:50 12/05/17 16:50 12/05/17 16:50 12/05/17 16:50 Course - Vital Signs Vital signs: Temp Pulse Resp BP Pulse Ox 97.9 F 100 20 110/75 94 12/05/17 16:50 12/05/17 16:50 12/05/17 16:50 12/05/17 16:50 12/05/17 16:50 Doctor's Discharge - Discharge Referrals: MORAIMA JARQUIN NP [Primary Care Provider] - Follow up as needed
[2017-12-05 18:35] LABS: ABSOLUTE EOSINOPHILS # (AUTO) 0.1 10^3/uL (0.0-0.6); ABSOLUTE LYMPHOCYTES (AUTO) 0.5 10^3/uL (0.5-4.7); ABSOLUTE MONOCYTES (AUTO) 0.2 10^3/uL (0.1-1.4); ABSOLUTE NEUT (AUTO) 1.8 10^3/uL (1.7-8.2); BASOPHILS % (AUTO) 1.9 % (0-2); HEMATOCRIT 38.2 % (36.0-47.0); HEMOGLOBIN 13.4 g/dL (12.0-15.5); LYMPHOCYTES % (AUTO) 18.8 % (13-45); MEAN CORPUSCULAR HEMOGLOBIN 38.7 pg (27.0-33.4); MEAN CORPUSCULAR HGB CONC 35.1 g/dL (32.0-36.0); MEAN CORPUSCULAR VOLUME 110 fl (80-97); MONOCYTES % (AUTO) 7.7 % (3-13); PLATELET COUNT 117 10^3/uL (150-450); RED BLOOD COUNT 3.47 10^6/uL (3.72-5.28); RED CELL DISTRIBUTION WIDTH 14.7 % (11.5-14.0); SEGMENTED NEUTROPHILS % (AUTO) 67.6 % (42-78); TOTAL CELLS COUNTED % (AUTO) 100 %; WHITE BLOOD COUNT 2.6 10^3/uL (4.0-10.5)
[2017-12-05 18:40] LABS: ALANINE AMINOTRANSFERASE 46 U/L (9-52); ALBUMIN 3.7 g/dL (3.5-5.0); ALKALINE PHOSPHATASE 83 U/L (38-126); ANION GAP 11 (5-19); ASPARTATE AMINO TRANSFERASE 55 U/L (14-36); BILIRUBIN,DIRECT 0.4 mg/dL (0.0-0.4); BILIRUBIN,TOTAL 0.6 mg/dL (0.2-1.3); BLOOD UREA NITROGEN 17 mg/dL (7-20); CALCIUM 9.2 mg/dL (8.4-10.2); CARBON DIOXIDE 29 mmol/L (22-30); CHLORIDE 102 mmol/L (98-107); GLUCOSE 99 mg/dL (75-110); LIPASE 47.3 U/L (23-300); POTASSIUM 4.2 mmol/L (3.6-5.0); SODIUM 141.8 mmol/L (137-145); TOTAL PROTEIN 6.9 g/dL (6.3-8.2)
[2017-12-05 18:46] LABS: APPEARANCE,URINE CLEAR; BILIRUBIN,URINE NEGATIVE (NEGATIVE); COLOR,URINE YELLOW; GLUCOSE, URINE NEGATIVE (NEGATIVE); KETONES,URINE NEGATIVE (NEGATIVE); LEUKOCYTE ESTERASE,URINE NEGATIVE (NEGATIVE); NITRITE,URINE NEGATIVE (NEGATIVE); PROTEIN,URINE NEGATIVE (NEGATIVE); URINE SPECIFIC GRAVITY 1.015
[2017-12-05 18:58] LABS: ANISOCYTOSIS SLIGHT
[2017-12-05 18:59] LABS: PLATELET COMMENT DECREASED; POLYCHROMASIA SLIGHT
[2017-12-05 19:00] LABS: OVALOCYTES SLIGHT
[2017-12-05 19:01] LABS: POIKILOCYTOSIS SLIGHT
[2017-12-05] MEDS ORDERED: FAMOTIDINE 20 MG TABLET PO ONE (19:23)
--- NOTE | 2017-12-05 20:09 | ER Document Report ---
ED General - General Chief Complaint: Abdominal Pain Stated Complaint: ABDOMINAL PAIN Time Seen by Provider: 12/05/17 16:59 Notes: Patient is a 51 year old female with a past medical history of stage IV metastatic breast cancer who presents complaining of epigastric and left upper quadrant abdominal pain that started after eating a sub-today. She describes the pain as an aching, constant, throbbing pain to her upper abdomen. Nothing improves or worsens this pain. She states that this pain has been present intermittently for the past several weeks and she is concerned about possible metastatic lesions to her pancreas or spleen. She has not discussed with her oncologist regarding today's concerns. She denies any vomiting, fever or constitutional symptoms. TRAVEL OUTSIDE OF THE [place] IN LAST 30 DAYS: No - Related Data Allergies/Adverse Reactions: latex Allergy (Severe, Verified 11/28/17 03:11) blisters,rash morphine [Morphine] Allergy (Severe, Verified 11/28/17 03:11) short of breath Sulfa (Sulfonamide Antibiotics) Allergy (Intermediate, Verified 11/28/17 03:11) rash Plastic tape Adverse Reaction (Uncoded 03/28/17 17:56) Blisters Past Medical History - General Information source: Patient - Social History Smoking Status: Current Every Day Smoker Frequency of alcohol use: None Drug Abuse: None Lives with: Family Family History: Reviewed & Not Pertinent Patient has suicidal ideation: No Patient has homicidal ideation: No - Past Medical History Cardiac Medical History: Denies: Hx Coronary Artery Disease, Hx Heart Attack, Hx Hypertension Pulmonary Medical History: Reports: Hx Asthma, Hx COPD - emphysema, Hx Pneumonia Denies: Hx Bronchitis Neurological Medical History: Denies: Hx Cerebrovascular Accident, Hx Seizures Renal/ Medical History: Denies: Hx Peritoneal Dialysis Malignancy Medical History: Reports: Hx Breast Cancer - Stage IV, mets to L5 and R & L posterior parietal skull. Musculoskeletal Medical History: Reports Hx Arthritis - generalized, Reports Hx Musculoskeletal Deformity, Reports Hx Musculoskeletal Trauma Psychiatric Medical History: Reports: Hx Anxiety Traumatic Medical History: Reports: Hx Fractures Past Surgical History: Reports: Hx Breast Surgery - Right lumpectomy x2 w/ axillary lymph node diseection., Hx Cholecystectomy, Hx Orthopedic Surgery - Left patellar reconstruction, Hx Tonsillectomy, Hx Tubal Ligation. Denies: Hx Hysterectomy - Immunizations Immunizations up to date: Yes Hx Diphtheria, Pertussis, Tetanus Vaccination: Yes Hx Pneumococcal Vaccination: 01/26/15 Review of Systems - Review of Systems Notes: Constitutional: Negative for fever. HENT: Negative for sore throat. Eyes: Negative for visual changes. Cardiovascular: Negative for chest pain. Respiratory: Negative for shortness of breath. Gastrointestinal: Positive for abdominal pain Genitourinary: Negative for dysuria. Musculoskeletal: Negative for back pain. Skin: Negative for rash. Neurological: Negative for headaches, weakness or numbness. 10 point ROS negative except as marked above and in HPI. Physical Exam - Vital signs Vitals: Temp Pulse Resp BP Pulse Ox 97.9 F 100 20 110/75 94 12/05/17 16:50 12/05/17 16:50 12/05/17 16:50 12/05/17 16:50 12/05/17 16:50 Interpretation: Normal Notes: PHYSICAL EXAMINATION: GENERAL: Appears older than stated age, no acute distress HEAD: Atraumatic, normocephalic. EYES: Pupils equal round and reactive to light, extraocular movements intact, sclera anicteric, conjunctiva are normal. ENT: nares patent, oropharynx clear without exudates. Moist mucous membranes. NECK: Normal range of motion, supple without lymphadenopathy LUNGS: Breath sounds clear to auscultation bilaterally and equal. No wheezes rales or rhonchi. HEART: Regular rate and rhythm without murmurs ABDOMEN: Soft, mild epigastric and left upper quadrant abdominal tenderness but no other localized areas of tenderness, normoactive bowel sounds. No guarding, no rebound. No masses appreciated. EXTREMITIES: Normal range of motion, no pitting or edema. No cyanosis. NEUROLOGICAL: No focal neurological deficits. Moves all extremities spontaneously and on command. PSYCH: Normal mood, normal affect. SKIN: Warm, Dry, normal turgor, no rashes or lesions noted. Course - Re-evaluation Re-evalutation: 12/05/17 20:08 Patient presents with several hours of left upper and epigastric abdominal pain after eating a sandwich. She has known metastases to her lower ribs bilaterally as well as a duodenal mass from her metastatic underlying breast cancer. I suspect probable expansion of this disease as does the patient. It sounds as though the patient does have a quite terminal course based on her conversations with her oncologist as well as the locations of her disease. We have agreed to proceed with CT of her abdomen and pelvis to further clarify if there are new metastases in the abdomen although we have already understood together and that there is nothing to be any specific treatment for this today. 12/05/17 21:32 CT does show diffuse metastatic lesions throughout the peritoneal cavity, retroperitoneal space and bones of the abdomen and pelvis. I have reviewed this with the patient, she is pleased to hear that there are no new lesions in her liver, spleen, kidneys or adrenals. I provided her with a copy of the CT report. Abdominal exam remains overall benign. At this time will discharge with return precautions and follow-up recommendations. Verbal discharge instructions given a the bedside and opportunity for questions given. Medication warnings reviewed. Patient is in agreement with this plan and has verbalized understanding of return precautions and the need for primary care follow-up in the next 24-72 hours. - Vital Signs Vital signs: Temp Pulse Resp BP Pulse Ox 98.0 F 75 18 115/80 98 12/05/17 21:44 12/05/17 21:44 12/05/17 21:44 12/05/17 21:44 12/05/17 21:44 - Laboratory Result Diagrams: 12/05/17 18:00 12/05/17 18:00 Laboratory results interpreted by me: 12/05/17 12/05/17 12/05/17 17:59 18:00 18:00 WBC 2.6 L RBC 3.47 L MCV 110 H MCH 38.7 H RDW 14.7 H Plt Count 117 L Est GFR (Non-Af Amer) 53 L AST 55 H Urine Urobilinogen 2.0 H - Diagnostic Test Radiology reviewed: Reports reviewed Discharge - Discharge Clinical Impression: Upper abdominal pain Metastasis Qualifiers: Area of secondary neoplastic involvement: unspecified site Qualified Code(s): C79.9 - Secondary malignant neoplasm of unspecified site Breast cancer, stage 4 Qualifiers: Laterality: unspecified laterality Qualified Code(s): C50.919 - Malignant neoplasm of unspecified site of unspecified female breast Condition: Stable Disposition: HOME, SELF-CARE Additional Instructions: Please return if you develop worsening of your pain, persistent vomiting, fever greater than 100.4F, or any other symptoms that are worrisome to you. Please follow-up with your oncologist as scheduled. Referrals: MORAIMA JARQUIN NP [Primary Care Provider] - Follow up as needed
--- NOTE | 2017-12-05 21:25 | RADIOLOGY REPORT (SQ) ---
EXAM DESCRIPTION: CT ABD/PELVIS WITH IV ONLY COMPLETED DATE/TIME: 12/05/2017 9:06 pm REASON FOR STUDY: eval metastatic disease, upper abdominal pain COMPARISON: 10/29/2017 TECHNIQUE: CT scan of the abdomen and pelvis performed using helical scanning technique with dynamic intravenous contrast injection. No oral contrast. Images reviewed with lung, soft tissue, and bone windows. Reconstructed coronal and sagittal MPR images reviewed. Delayed images for evaluation of the urinary system also acquired. All images stored on PACS. All CT scanners at this facility use dose modulation, iterative reconstruction, and/or weight based d osing when appropriate to reduce radiation dose to as low as reasonably achievable (ALARA). [facility]: Dose Right [facility]: CareDose [facility]: Dose Right [facility]: Teradose 4D [facility]: Radiate Media CONTRAST TYPE AND DOSE: contrast/concentration: Isovue 370.00 mg/ml; Total Contrast Delivered: 95.0 ml; Total Saline Delivered: 45.0 ml RENAL FUNCTION: GFR > 60. RADIATION DOSE: CT Rad equipment meets quality standard of care and radiation dose reduction techniq ues were employed. CTDIvol: 16.6 - 19.8 mGy. DLP: 1852 mGy-cm.. LIMITATIONS: None. FINDINGS: LOWER CHEST: No significant findings. No nodules or infiltrates. LIVER: Normal size. No masses. Similar mildly dilated ducts. SPLEEN: Normal size. No focal lesions. PANCREAS: No masses. No significant calcifications. No adjacent inflammation or peripancreatic fluid collections. Pancreatic duct not dilated. GALLBLADDER: Surgically absent. ADRENAL GLANDS: No significant masses or asymmetry. RIGHT KIDNEY AND URETER: No solid masses. No significant calcifications. No hydronephrosis or hyd roureter. LEFT KIDNEY AND URETER: No solid masses. No significant calcifications. No hydronephrosis or hydr oureter. AORTA AND VESSELS: No aneurysm. No dissection. Renal arteries, SMA, celiac without stenosis. RETROPERITONEUM: Scattered small retroperitoneal adenopathy. BOWEL AND PERITONEAL CAVITY: Large stool burden. No masses or inflammatory changes. No free fluid. Multiple small peritoneal masses. APPENDIX: Normal. PELVIS: No mass. No free fluid. Normal bladder. ABDOMINAL WALL: No masses. No hernias. BONES: No acute findings. Diffuse osseous blastic metastatic disease. OTHER: No other significant finding. IMPRESSION: Diffuse metastatic disease similar to the prior exam. No acute findings identified. TECHNICAL DOCUMENTATION: JOB ID: [id number] Quality ID # [id number]: Final reports with documentation of one or more dose reduction techniques (e.g., Au tomated exposure control, adjustment of the mA and/or kV according to patient size, use of iterative reconstruction technique) 2010 [employer]- All Rights Reserved Reading location - IP/workstation name: [email or web address]
[2017-12-05 21:45] VITALS: BP 115/80
== END 2017-12-05 21:44 | disposition home or self-care (01) ==
LOC: ER 16:19
DX: R10.13 Epigastric pain (principal); R10.12 Left upper quadrant pain; R19.09 Other intra-abdominal and pelvic swelling, mass and lump; C50.919 Malignant neoplasm of unspecified site of unspecified female breast; C79.51 Secondary malignant neoplasm of bone; F17.200 Nicotine dependence, unspecified, uncomplicated; Z91.040 Latex allergy status; Z88.5 Allergy status to narcotic agent; Z88.2 Allergy status to sulfonamides; Z90.49 Acquired absence of other specified parts of digestive tract
CPT/HCPCS: 99284; 36415; 83690; 85025; 80053; 81001; 74177; J3490 ×4

== ENCOUNTER 2017-12-24 22:40 | Emergency (ER) | payer MEDICAID ==
[2017-12-25] MEDS ORDERED: NORMAL SALINE 1000 ML 1,000 ML IV ONE (01:41)
[2017-12-25 02:20] LABS: ABSOLUTE EOSINOPHILS # (AUTO) 0.1 10^3/uL (0.0-0.6); ABSOLUTE MONOCYTES (AUTO) 0.3 10^3/uL (0.1-1.4); TOTAL CELLS COUNTED % (AUTO) 100 %
[2017-12-25 02:29] LABS: ABSOLUTE LYMPHOCYTES (AUTO) 0.6 10^3/uL (0.5-4.7); ABSOLUTE NEUT (AUTO) 1.9 10^3/uL (1.7-8.2); EOSINOPHILS % (AUTO) 2.6 % (0-6); HEMOGLOBIN 13.4 g/dL (12.0-15.5); LYMPHOCYTES % (AUTO) 19.6 % (13-45); MEAN CORPUSCULAR HEMOGLOBIN 37.7 pg (27.0-33.4); MEAN CORPUSCULAR HGB CONC 34.4 g/dL (32.0-36.0); MEAN CORPUSCULAR VOLUME 110 fl (80-97); MONOCYTES % (AUTO) 11.1 % (3-13); RED BLOOD COUNT 3.56 10^6/uL (3.72-5.28); RED CELL DISTRIBUTION WIDTH 15.1 % (11.5-14.0); SEGMENTED NEUTROPHILS % (AUTO) 65.7 % (42-78)
[2017-12-25 02:31] LABS: PLATELET COUNT 99 10^3/uL (150-450)
[2017-12-25 02:32] LABS: ALANINE AMINOTRANSFERASE 49 U/L (9-52); ALBUMIN 3.7 g/dL (3.5-5.0); ALKALINE PHOSPHATASE 77 U/L (38-126); ANION GAP 11 (5-19); ASPARTATE AMINO TRANSFERASE 61 U/L (14-36); BILIRUBIN,DIRECT 0.3 mg/dL (0.0-0.4); BILIRUBIN,TOTAL 0.6 mg/dL (0.2-1.3); BLOOD UREA NITROGEN 19 mg/dL (7-20); CALCIUM 9.3 mg/dL (8.4-10.2); CARBON DIOXIDE 30 mmol/L (22-30); CHLORIDE 99 mmol/L (98-107); GLUCOSE 97 mg/dL (75-110); POTASSIUM 4.2 mmol/L (3.6-5.0); SODIUM 140.1 mmol/L (137-145); TOTAL PROTEIN 6.8 g/dL (6.3-8.2)
--- NOTE | 2017-12-25 03:08 | ER Document Report ---
ED General - General Chief Complaint: Abdominal Cramping Stated Complaint: DEHYDRATION,CRAMPING IN HAND/UPPER ARMS/RIBS Time Seen by Provider: 12/25/17 01:24 Mode of Arrival: Ambulatory Information source: Patient Notes: Patient is a 52-year-old female who presents with chief complaint of cramping to her hands and cramping to her ribs. Patient believes that she is dehydrated. Patient also reports associated fatigue and some drowsiness. Patient reports that she has breast cancer with metastasis to her lymph nodes, abdomen and spine. Patient is currently taking oral chemo. Patient reports she is on OxyContin 40 mg every 8 hours and Roxicodone 30 mg every 4 hours. She reports she took her pain medications just prior to arrival and denies any pain. Patient also has a history of COPD and emphysema and is a current smoker. Patient denies any nausea or vomiting, she did report one episode of diarrhea earlier this evening. Patient is requesting IV fluids. TRAVEL OUTSIDE OF THE [place] IN LAST 30 DAYS: No - Related Data Allergies/Adverse Reactions: latex Allergy (Severe, Verified 12/25/17 00:42) blisters,rash morphine [Morphine] Allergy (Severe, Verified 12/25/17 00:42) short of breath Sulfa (Sulfonamide Antibiotics) Allergy (Intermediate, Verified 12/25/17 00:42) rash Plastic tape Adverse Reaction (Uncoded 12/25/17 00:42) Blisters Past Medical History - General Information source: Patient - Social History Smoking Status: Current Every Day Smoker Family History: Reviewed & Not Pertinent Patient has suicidal ideation: No Patient has homicidal ideation: No - Past Medical History Cardiac Medical History: Denies: Hx Coronary Artery Disease, Hx Heart Attack, Hx Hypertension Pulmonary Medical History: Reports: Hx Asthma, Hx COPD - emphysema, Hx Pneumonia Denies: Hx Bronchitis Neurological Medical History: Denies: Hx Cerebrovascular Accident, Hx Seizures Renal/ Medical History: Denies: Hx Peritoneal Dialysis Malignancy Medical History: Reports: Hx Breast Cancer - Stage IV, mets to L5 and R & L posterior parietal skull. Musculoskeletal Medical History: Reports Hx Arthritis - generalized, Reports Hx Musculoskeletal Deformity, Reports Hx Musculoskeletal Trauma Psychiatric Medical History: Reports: Hx Anxiety Traumatic Medical History: Reports: Hx Fractures Past Surgical History: Reports: Hx Breast Surgery - Right lumpectomy x2 w/ axillary lymph node diseection., Hx Cholecystectomy, Hx Orthopedic Surgery - Left patellar reconstruction, Hx Tonsillectomy, Hx Tubal Ligation. Denies: Hx Hysterectomy - Immunizations Immunizations up to date: Yes Hx Diphtheria, Pertussis, Tetanus Vaccination: Yes Hx Pneumococcal Vaccination: 01/26/15 Review of Systems - Review of Systems Constitutional: See HPI EENT: No symptoms reported Cardiovascular: No symptoms reported Respiratory: No symptoms reported Gastrointestinal: No symptoms reported Genitourinary: No symptoms reported Female Genitourinary: No symptoms reported Musculoskeletal: No symptoms reported Skin: No symptoms reported Hematologic/Lymphatic: No symptoms reported Neurological/Psychological: No symptoms reported Physical Exam - Vital signs Vitals: Temp Pulse Resp BP Pulse Ox 98.1 F 107 H 18 114/75 94 12/25/17 00:01 12/25/17 00:01 12/25/17 00:01 12/25/17 00:01 12/25/17 00:01 - Notes Notes: PHYSICAL EXAMINATION: GENERAL: Well-appearing, well-nourished and in no acute distress. HEAD: Atraumatic, normocephalic. EYES: Pupils equal round and reactive to light, extraocular movements intact, conjunctiva are normal. ENT: Nares patent, oropharynx clear without exudates. Moist mucous membranes. NECK: Normal range of motion, supple without lymphadenopathy LUNGS: Breath sounds clear to auscultation bilaterally and equal. No wheezes rales or rhonchi. HEART: Regular rate and rhythm without murmurs ABDOMEN: Soft, nontender, nondistended abdomen. No guarding, no rebound. No masses appreciated. Female : deferred Musculoskeletal: Normal range of motion, no pitting or edema. No cyanosis. NEUROLOGICAL: Cranial nerves grossly intact. Normal speech, normal gait. Normal sensory, motor exams PSYCH: Normal mood, normal affect. SKIN: Warm, Dry, normal turgor, no rashes or lesions noted. Course - Re-evaluation Re-evalutation: Patient nontoxic in appearance and in no acute distress. Baseline labs were drawn and are consistent with her baseline. Patient will be given IV fluids and if she feels better patient will be discharged home. Patient reports significant improvement in her symptoms after IV fluid hydration. Patient was mildly tachycardic on arrival with a heart rate of 107, patient does report she does have anxiety regarding her diagnosis. Patient's heart rate is in the 80s after IV fluids and at time of discharge. Patient will be discharged home in stable condition. Patient has close follow-up already with her oncologist and her primary care provider. Patient encouraged to return to the emergency department should she develop worsening symptoms or any other concerns. - Vital Signs Vital signs: Temp Pulse Resp BP Pulse Ox 98.9 F 83 20 114/74 93 12/25/17 03:14 12/25/17 03:14 12/25/17 03:14 12/25/17 03:14 12/25/17 03:14 - Laboratory Result Diagrams: 12/25/17 02:00 12/25/17 02:00 Laboratory results interpreted by me: 12/25/17 12/25/17 02:00 02:00 WBC 3.0 L RBC 3.56 L MCV 110 H MCH 37.7 H RDW 15.1 H Plt Count 99 L Est GFR ( Amer) 57 L Est GFR (Non-Af Amer) 47 L AST 61 H Discharge - Discharge Clinical Impression: Weakness, Drowsiness Condition: Stable Disposition: HOME, SELF-CARE Additional Instructions: Your workup today was unremarkable. I have included a copy of your labs for your primary care provider to review. We provided you with the IV fluids that you are requesting for your fatigue and drowsiness due to your ongoing cancer. Please continue close follow-up with your oncologist. Return to the emergency department if you develop worsening symptoms, development of fever or any other symptom that is concerning to you. Referrals: MORAIMA JARQUIN NP [Primary Care Provider] - Follow up as needed
[2017-12-25 03:14] VITALS: BP 114/74
== END 2017-12-25 03:14 | disposition home or self-care (01) ==
LOC: ER 22:40
DX: R53.1 Weakness (principal); R40.0 Somnolence; C50.919 Malignant neoplasm of unspecified site of unspecified female breast; C77.9 Secondary and unspecified malignant neoplasm of lymph node, unspecified; C79.89 Secondary malignant neoplasm of other specified sites; C79.51 Secondary malignant neoplasm of bone; Z79.899 Other long term (current) drug therapy; Z79.891 Long term (current) use of opiate analgesic; R25.2 Cramp and spasm; R53.83 Other fatigue; F41.9 Anxiety disorder, unspecified; R00.0 Tachycardia, unspecified; J43.9 Emphysema, unspecified; R19.7 Diarrhea, unspecified; F17.200 Nicotine dependence, unspecified, uncomplicated; Z91.040 Latex allergy status; Z88.5 Allergy status to narcotic agent; Z88.2 Allergy status to sulfonamides
CPT/HCPCS: 99284; 96360; 36415; 85025; 80053; J7030

== ENCOUNTER → 2018-01-27 | Outpatient (CLI) | payer MEDICAID ==
--- NOTE | 2018-01-27 10:22 | RADIOLOGY REPORT (SQ) ---
EXAM DESCRIPTION: CT CHEST WITH; CT ABD/PELVIS WITH IV ONLY COMPLETED DATE/TIME: 01/27/2018 9:52 am; 01/27/2018 9:53 am REASON FOR STUDY: BREAST CANCER C50.411 MALIG NEOPLM OF UPPER-OUTER QUADRANT OF RIGHT FEMALE COMPARISON: Bone scan 10/29/2017 CT abdomen pelvis 12/05/2017 CT chest abdomen pelvis 10/29/2017, 08/06/2017, 03/21/2017 CONTRAST TYPE AND DOSE: contrast/concentration: Isovue 350.00 mg/ml; Total Contrast Delivered: 98.0 ml; Total Saline Delivered: 72.0 ml RENAL FUNCTION: Creatinine 1.2 TECHNIQUE: CT scan of the chest performed using helical scanning technique with dynamic intravenous contrast injection. Images reviewed with lung, soft tissue and bone windows. Reconstructed coronal a nd sagittal MPR images reviewed. All images stored on PACS. CT scan of the abdomen and pelvis performed with intravenous and without oral contrastusing helical s roger technique with dynamic intravenous contrast injection. Images reviewed with lung, soft tissu e and bone windows. Reconstructed coronal and sagittal MPR images reviewed. Delayed images for eval uation of the urinary system also acquired and evaluated. All images stored on PACS. All CT scanners at this facility use dose modulation, iterative reconstruction, and/or weight based d osing when appropriate to reduce radiation dose to as low as reasonably achievable (ALARA). [facility]: Dose Right [facility]: CareDose [facility]: Dose Right [facility]: Teradose 4D [facility]: [employer] RADIATION DOSE: CT Rad equipment meets quality standard of care and radiation dose reduction techniq ues were employed. CTDIvol: 8.6 - 13.9 mGy. DLP: 2490 mGy-cm. . LIMITATIONS: None. FINDINGS: CHEST: LUNGS AND PLEURA: No opacities, nodules, masses. No pneumothorax. No effusions. Obstructive lung di sease with enlarged airspaces particularly in the upper lobes bilaterally HILAR AND MEDIASTINAL STRUCTURES: No identified masses or abnormal nodes. HEART AND VASCULAR STRUCTURES: No aneurysm or dissection. No central pulmonary emboli. No pericardi al effusion. HARDWARE: Left-sided permanent central line tip superior vena Figueroa THYROID AND OTHER SOFT TISSUES: No masses. No adenopathy. Post therapeutic changes bilateral breast s. BONES: Diffuse bony metastatic disease, stable OTHER: No other significant finding. ABDOMEN AND PELVIS: LIVER: Normal size. No masses. No dilated ducts. SPLEEN: Normal size. No focal lesions. PANCREAS: No masses. No significant calcifications. No adjacent inflammation or peripancreatic fluid collections. Pancreatic duct not dilated. GALLBLADDER: Surgically absent ADRENAL GLANDS: No significant masses or asymmetry. RIGHT KIDNEY AND URETER: No solid masses. No significant calcification. No hydronephrosis or hydroure ter. LEFT KIDNEY AND URETER: No solid masses. No significant calcification. No hydronephrosis or hydrouret er. AORTA AND VESSELS: No aneurysm. No dissection. Renal arteries, SMA, celiac without stenosis. RETROPERITONEUM: No retroperitoneal adenopathy, hemorrhage or masses. BOWEL AND PERITONEAL CAVITY: Large amount of stool throughout the colon. No masses or inflammatory changes. No free fluid or peritoneal masses. APPENDIX: Normal. ABDOMINAL WALL: Small fat containing midline supraumbilical hernia axial image 43, sagittal image 53 PELVIS: No mass or free fluid. Normal bladder. BONES: Diffuse bony metastatic disease OTHER: No other significant finding. IMPRESSION: Stable diffuse bony metastatic disease over the chest abdomen pelvis Post cholecystectomy. Tiny fat containing supraumbilical ventral hernia TECHNICAL DOCUMENTATION: JOB ID: [id number] Quality ID # [id number]: Final reports with documentation of one or more dose reduction techniques (e.g., Au tomated exposure control, adjustment of the mA and/or kV according to patient size, use of iterative reconstruction technique) 2010 [employer]- All Rights Reserved Reading location - IP/workstation name: [email or web address]
--- NOTE | 2018-01-27 13:56 | RADIOLOGY REPORT (SQ) ---
EXAM DESCRIPTION: NM WHOLE BODY BONE SCAN COMPLETED DATE/TIME: 01/27/2018 1:14 pm REASON FOR STUDY: BREAST CANCER C50.411 MALIG NEOPLM OF UPPER-OUTER QUADRANT OF RIGHT FEMALE COMPARISON: Bone scan 10/29/2017, 08/06/2017, 11/27/2016, 04/03/2016, 03/13/2015 RADIONUCLIDE AND DOSE: 21.6 millicuries Tc99m MDP. The route of agent administration: Intravenous. ADDITIONAL DRUGS AND DOSES: None. TECHNIQUE: Routine delayed images at 3 hours post radionuclide injection acquired of the bony skelet on including anterior and posterior whole-body projections and additional focused images as needed. LIMITATIONS: None. FINDINGS: BONES: Diffuse increased uptake throughout the skull, ribs, spine, sacrum, and bilateral l ower extremities from diffuse metastatic disease. This is similar compared to 10/29/2017 and 8. KIDNEYS: Symmetric excretion without obstruction. OTHER: No other significant finding. IMPRESSION: Stable diffuse bony metastatic disease COMMENT: Quality measure 147: Current bone scan is compared with any available plain radiographs, p rior bone scans, and CT/MRI. TECHNICAL DOCUMENTATION: JOB ID: [id number] [employer]- All Rights Reserved Reading location - IP/workstation name: [email or web address]
== END ==
LOC: RAD 08:43
PROVIDERS: ATTEND Internal Medicine
DX: C50.411 Malignant neoplasm of upper-outer quadrant of right female breast (principal); C79.51 Secondary malignant neoplasm of bone
CPT/HCPCS: 78306; 71260; 74177; A9561; Q9969

== ENCOUNTER 2018-02-02 21:00 | Emergency (ER) | payer MEDICAID ==
--- NOTE | 2018-02-02 23:18 | ER Document Report ---
HPI - HPI Patient complains to provider of: Short of breath Onset: Other - Since losing her electricity her current Onset/Duration: Worse Quality of pain: Other - Achy ribs due to coughing Severity: Mild Pain Level: 1 Associated Symptoms: Nonproductive cough, Shortness of breath - Due to lack of oxygen, her electricity went out and her oxygen concentrator would not work, Other - Acute ribs due to coughing Exacerbated by: Supine Relieved by: Denies Similar symptoms previously: Yes Recently seen / treated by doctor: No - ROS ROS below otherwise negative: Yes - CONSTITUTIONAL Constitutional: DENIES: Fever, Chills - EENT EENT: REPORTS: Nasal Drainage-Clear. DENIES: Sore Throat, Ear Pain, Nasal Drainage-Purulent, Congestion, Eye problems - NEURO Neurology: DENIES: Headache, Weakness, Vision blurred, Dizzinesss / Vertigo - CARDIOVASCULAR Cardiovascular: DENIES: Chest pain - RESPIRATORY Respiratory: REPORTS: Coughing - States coughing is making her ribs hurt. DENIES: Trouble Breathing - GASTROINTESTINAL Gastrointestinal: DENIES: Abdominal Pain, Nausea, Patient vomiting, Diarrhea, Constipation, Black / Bloody Stools - URINARY Urinary: DENIES: Dysuria, Urgency, Frequency - REPRODUCTIVE Reproductive: DENIES: :, Postmenopausal, Abnormal bleeding / discharge - MUSCULOSKELETAL Musculoskeletal: DENIES: Extremity pain, Back Pain, Neck Pain, Swelling - DERM Skin Color: Normal Skin Problems: None Past Medical History - General Information source: Patient - Social History Smoking Status: Current Every Day Smoker Cigarette use (# per day): Yes - 1-2 packs per day Chew tobacco use (# tins/day): No Smoking Education Provided: Yes - 4 minutes Frequency of alcohol use: None Drug Abuse: None Lives with: Alone Family History: Reviewed & Not Pertinent Patient has suicidal ideation: No Patient has homicidal ideation: No - Past Medical History Cardiac Medical History: Reports: None Pulmonary Medical History: Reports: Hx Asthma, Hx COPD - emphysema, Hx Pneumonia EENT Medical History: Reports: None Neurological Medical History: Reports: None Endocrine Medical History: Reports: None Renal/ Medical History: Reports: None Malignancy Medical History: Reports: Hx Breast Cancer - Stage IV, mets to L5 and R & L posterior parietal skull. GI Medical History: Reports: None Musculoskeletal Medical History: Reports Hx Arthritis - generalized, Reports Hx Musculoskeletal Deformity, Reports Hx Musculoskeletal Trauma Psychiatric Medical History: Reports: Hx Anxiety Traumatic Medical History: Reports: Hx Fractures Infectious Medical History: Reports: None Past Surgical History: Reports: Hx Breast Surgery - Right lumpectomy x2 w/ axillary lymph node diseection., Hx Cholecystectomy, Hx Orthopedic Surgery - Left patellar reconstruction, Hx Tonsillectomy, Hx Tubal Ligation - Immunizations Immunizations up to date: Yes Hx Diphtheria, Pertussis, Tetanus Vaccination: Yes Hx Pneumococcal Vaccination: 01/26/15 Vertical Provider Document - CONSTITUTIONAL Agree With Documented VS: Yes Exam Limitations: No Limitations General Appearance: WD/WN, No Apparent Distress - INFECTION CONTROL TRAVEL OUTSIDE OF THE [place] IN LAST 30 DAYS: No - HEENT HEENT: Atraumatic, Normocephalic, PERRLA. negative: Dental Injury, Normal ENT Exam - Minor nasal drainage, Pharyngeal Exudate, Pharyngeal Tenderness, Pharyngeal Erythema, Tympanic Membrane Red - NECK Neck: Normal Inspection, Supple - RESPIRATORY Respiratory: Breath Sounds Normal, No Respiratory Distress. negative: Rales, Rhonchi, Wheezing - CARDIOVASCULAR Cardiovascular: Regular Rate - Pulse 100 when I checked it, Regular Rhythm - GI/ABDOMEN Gastrointestinal: Abdomen Soft, Abdomen Non-Tender, No Organomegaly, Normal Bowel Sounds - MUSCULOSKELETAL/EXTREMETIES Musculoskeletal/Extremeties: MAEW, FROM, Non-Tender - NEURO Level of Consciousness: Awake, Alert, Appropriate - DERM Integumentary: Warm, Dry, No Rash Course - Re-evaluation Re-evalutation: 02/02/18 23:16 This 52-year-old female had clear lungs apical pulse of 100 temp 99 9 O2 sat of 97% on 2 L of oxygen with a blood pressure 140/79. She is oxygen dependent COPD emphysema patient who came to the emergency room because she needed oxygen and because she hit her ribs were hurting because she had been coughing so much today. Patient will be discharged home to get her supplies she needs to be self -sufficient at the oxygen bar and she will be connected up to her concentrator to provide her with her oxygen as she has no electricity at home. - Vital Signs Vital signs: Temp Pulse Resp BP Pulse Ox 98.5 F 124 H 18 116/75 93 02/02/18 21:22 02/02/18 21:22 02/02/18 21:22 02/02/18 21:22 02/02/18 21:22 Discharge - Discharge Clinical Impression: rib pain from cough Condition: Stable Disposition: HOME, SELF-CARE Additional Instructions: You were seen today for rib pain due to coughing. You states you did not have electricity and could not run your oxygen and this caused you to cough. You will be discharged home, your to go home to get your supplies you need to care for yourself and your oxygen concentrator and you will be in her oxygen bar to get your oxygen until you get electricity. FOLLOW-UP CARE: If you have been referred to a physician for follow-up care, call the physician s office for an appointment as you were instructed or within the next two days. If you experience worsening or a significant change in your symptoms, notify the physician immediately or return to the Emergency Department at any time for re-evaluation. Forms: Smoking Cessation Education Referrals: CRUZ COOK MD [Primary Care Provider] - Follow up as needed
[2018-02-02 23:27] VITALS: BP 140/79
== END 2018-02-02 23:28 | disposition home or self-care (01) ==
LOC: ER 21:00
DX: R07.81 Pleurodynia (principal); F17.210 Nicotine dependence, cigarettes, uncomplicated
CPT/HCPCS: 99283

== ENCOUNTER 2018-02-10 22:23 | Emergency (ER) | payer MEDICAID ==
[2018-02-11] MEDS ORDERED: NORMAL SALINE 1000 ML 1,000 ML IV ONE (00:28)
--- NOTE | 2018-02-11 00:28 | ER Document Report ---
ED Medical Screen (RME) - General Chief Complaint: Weakness Stated Complaint: WEAKNESS Time Seen by Provider: 02/11/18 00:24 Notes: Patient with stage IV breast cancer metastasized to bone currently on chemotherapy whose oncologist is Dr. Cook presents to the emergency department due to generalized fatigue. She states that she feels like she has no energy has been weak but generalized in nature. She states she has not been eating and drinking is much and has lost her appetite. She had her labs drawn two days ago and it shows that her platelet count is 63, Hb of 10. She is unsure if she has black or red stool. I have greeted and performed a rapid initial assessment of this patient. A comprehensive ED assessment and evaluation of the patient, analysis of test results and completion of the medical decision making process will be conducted by additional ED providers. PHYSICAL EXAMINATION: GENERAL: Frail but in no acute distress, dry oral mucus membranes. TRAVEL OUTSIDE OF THE [place] IN LAST 30 DAYS: No - Related Data Allergies/Adverse Reactions: latex Allergy (Severe, Verified 12/25/17 00:42) blisters,rash morphine [Morphine] Allergy (Severe, Verified 12/25/17 00:42) short of breath Sulfa (Sulfonamide Antibiotics) Allergy (Intermediate, Verified 12/25/17 00:42) rash Plastic tape Adverse Reaction (Uncoded 12/25/17 00:42) Blisters Past Medical History - Past Medical History Cardiac Medical History: Denies: Hx Coronary Artery Disease, Hx Heart Attack, Hx Hypertension Pulmonary Medical History: Reports: Hx Asthma, Hx COPD - emphysema, Hx Pneumonia Denies: Hx Bronchitis Neurological Medical History: Denies: Hx Cerebrovascular Accident, Hx Seizures Renal/ Medical History: Denies: Hx Peritoneal Dialysis Malignancy Medical History: Reports: Hx Breast Cancer - Stage IV, mets to L5 and R & L posterior parietal skull. Musculoskeltal Medical History: Reports Hx Arthritis - generalized, Reports Hx Musculoskeletal Deformity, Reports Hx Musculoskeletal Trauma Psychiatric Medical History: Reports: Hx Anxiety Traumatic Medical History: Reports: Hx Fractures Past Surgical History: Reports: Hx Breast Surgery - Right lumpectomy x2 w/ axillary lymph node diseection., Hx Cholecystectomy, Hx Orthopedic Surgery - Left patellar reconstruction, Hx Tonsillectomy, Hx Tubal Ligation. Denies: Hx Hysterectomy - Immunizations Immunizations up to date: Yes Hx Diphtheria, Pertussis, Tetanus Vaccination: Yes Physical Exam - Vital signs Vitals: Temp Pulse Resp BP Pulse Ox 97.8 F 118 H 24 H 111/69 96 02/10/18 22:44 02/10/18 22:44 02/10/18 22:44 02/10/18 22:44 02/10/18 22:44 Course - Vital Signs Vital signs: Temp Pulse Resp BP Pulse Ox 97.8 F 118 H 24 H 111/69 96 02/10/18 22:44 02/10/18 22:44 02/10/18 22:44 02/10/18 22:44 02/10/18 22:44 Doctor's Discharge - Discharge Referrals: CRUZ COOK MD [Primary Care Provider] - Follow up as needed
[2018-02-11 00:50] LABS: HEMATOCRIT 29.1 % (36.0-47.0); HEMOGLOBIN 10.2 g/dL (12.0-15.5); MEAN CORPUSCULAR HEMOGLOBIN 36.4 pg (27.0-33.4); MEAN CORPUSCULAR VOLUME 104 fl (80-97); RED CELL DISTRIBUTION WIDTH 17.8 % (11.5-14.0); WHITE BLOOD COUNT 3.6 10^3/uL (4.0-10.5)
[2018-02-11 00:54] LABS: PLATELET COUNT 66 10^3/uL (150-450)
[2018-02-11 01:06] LABS: INTERNATIONAL RATION (INR) 0.99; PROTHROMBIN TIME 13.6 SEC (11.4-15.4)
[2018-02-11 01:11] LABS: ABSOLUTE LYMPHOCYTES# (MANUAL) 0.8 10^3/uL (0.5-4.7); ABSOLUTE MONOCYTES # (MANUAL) 0.2 10^3/uL (0.1-1.4); ABSOLUTE NEUTROPHILS# (MANUAL) 2.7 10^3/uL (1.7-8.2); BAND NEUTROPHILS % (MANUAL) 2 % (3-5); BASOPHILS % (MANUAL) 0 % (0-2); EOSINOPHILS % (MANUAL) 0 % (0-6); LYMPHOCYTES % (MANUAL) 20 % (13-45); METAMYELOCYTES % (MANUAL) 2 % (0); MONOCYTES % (MANUAL) 5 % (3-13); SEGMENTED NEUTROPHILS % (MAN) 70 % (42-78); TOTAL CELLS COUNTED 100
[2018-02-11 01:13] LABS: ANISOCYTOSIS 1+; OVALOCYTES SLIGHT; PLATELET COMMENT DECREASED; POIKILOCYTOSIS SLIGHT; TEAR DROP CELLS SLIGHT
[2018-02-11 01:19] LABS: ALANINE AMINOTRANSFERASE 41 U/L (9-52); ALBUMIN 2.9 g/dL (3.5-5.0); ALKALINE PHOSPHATASE 103 U/L (38-126); ANION GAP 6 (5-19); ASPARTATE AMINO TRANSFERASE 71 U/L (14-36); BILIRUBIN,DIRECT 0.4 mg/dL (0.0-0.4); BILIRUBIN,TOTAL 0.7 mg/dL (0.2-1.3); BLOOD UREA NITROGEN 12 mg/dL (7-20); CALCIUM 8.9 mg/dL (8.4-10.2); CARBON DIOXIDE 32 mmol/L (22-30); CHLORIDE 103 mmol/L (98-107); GLUCOSE 96 mg/dL (75-110); POTASSIUM 3.7 mmol/L (3.6-5.0); SODIUM 140.5 mmol/L (137-145); TOTAL PROTEIN 5.8 g/dL (6.3-8.2)
[2018-02-11 01:22] LABS: APPEARANCE,URINE CLOUDY; BILIRUBIN,URINE MODERATE (NEGATIVE); CALCIUM OXALATE CRYSTALS,URINE TOO NUMEROUS TO CNT /HPF; COLOR,URINE AMBER; GLUCOSE, URINE NEGATIVE (NEGATIVE); KETONES,URINE NEGATIVE (NEGATIVE); LEUKOCYTE ESTERASE,URINE NEGATIVE (NEGATIVE); NITRITE,URINE NEGATIVE (NEGATIVE); PROTEIN,URINE 100 mg/dL (NEGATIVE); URINE SPECIFIC GRAVITY 1.032
[2018-02-11] MEDS ORDERED: NORMAL SALINE 500 ML IV ONE (01:31)
--- NOTE | 2018-02-11 01:36 | ER Document Report ---
ED General - General Chief Complaint: Weakness Stated Complaint: WEAKNESS Time Seen by Provider: 02/11/18 00:24 Notes: Patient with generalized weakness fatigue history of metastatic breast cancer to bone presents for concern of her generalized fatigue. Patient was provided a liter and half of fluids in the emergency department with much improvement of her symptoms. Labs were drawn and were found to be within normal limits are trending within her baseline. Patient was RMA by me and ultimately discharged from triage due to improvement of her symptoms. He has an appointment with her oncologist this coming Friday and was told to follow through with that appointment or to return to the emergency department sooner if her symptoms worsen. No recent cough congestion fevers or illnesses TRAVEL OUTSIDE OF THE [place] IN LAST 30 DAYS: No - Related Data Allergies/Adverse Reactions: latex Allergy (Severe, Verified 12/25/17 00:42) blisters,rash morphine [Morphine] Allergy (Severe, Verified 12/25/17 00:42) short of breath Sulfa (Sulfonamide Antibiotics) Allergy (Intermediate, Verified 12/25/17 00:42) rash Plastic tape Adverse Reaction (Uncoded 12/25/17 00:42) Blisters Past Medical History - Social History Smoking Status: Current Every Day Smoker Chew tobacco use (# tins/day): No Frequency of alcohol use: None Drug Abuse: None Family History: Reviewed & Not Pertinent Patient has suicidal ideation: No Patient has homicidal ideation: No - Past Medical History Cardiac Medical History: Denies: Hx Coronary Artery Disease, Hx Heart Attack, Hx Hypertension Pulmonary Medical History: Reports: Hx Asthma, Hx COPD - emphysema, Hx Pneumonia Denies: Hx Bronchitis Neurological Medical History: Denies: Hx Cerebrovascular Accident, Hx Seizures Renal/ Medical History: Denies: Hx Peritoneal Dialysis Malignancy Medical History: Reports: Hx Breast Cancer - Stage IV, mets to L5 and R & L posterior parietal skull. Musculoskeletal Medical History: Reports Hx Arthritis - generalized, Reports Hx Musculoskeletal Deformity, Reports Hx Musculoskeletal Trauma Psychiatric Medical History: Reports: Hx Anxiety Traumatic Medical History: Reports: Hx Fractures Past Surgical History: Reports: Hx Breast Surgery - Right lumpectomy x2 w/ axillary lymph node diseection., Hx Cholecystectomy, Hx Orthopedic Surgery - Left patellar reconstruction, Hx Tonsillectomy, Hx Tubal Ligation. Denies: Hx Hysterectomy - Immunizations Immunizations up to date: Yes Hx Diphtheria, Pertussis, Tetanus Vaccination: Yes Hx Pneumococcal Vaccination: 01/26/15 Review of Systems - Review of Systems Constitutional: See HPI EENT: No symptoms reported Cardiovascular: No symptoms reported Respiratory: No symptoms reported Gastrointestinal: No symptoms reported Genitourinary: No symptoms reported Female Genitourinary: No symptoms reported Musculoskeletal: No symptoms reported Skin: No symptoms reported Hematologic/Lymphatic: No symptoms reported Neurological/Psychological: No symptoms reported Physical Exam - Vital signs Vitals: Temp Pulse Resp BP Pulse Ox 97.8 F 118 H 24 H 111/69 96 02/10/18 22:44 02/10/18 22:44 02/10/18 22:44 02/10/18 22:44 02/10/18 22:44 - General General appearance: Appears well, Alert - HEENT Head: Normocephalic, Atraumatic Mucous membranes: Dry - Respiratory Respiratory status: No respiratory distress Breath sounds: Normal - Cardiovascular Rhythm: Regular Heart sounds: Normal auscultation Murmur: No - Abdominal Inspection: Normal - Neurological Cognition: Normal Orientation: AAOx4 - Psychological Associated symptoms: Normal affect Course - Re-evaluation Re-evalutation: 02/11/18 01:35 Pleasant patient well-appearing although she does have dry oral mucous membranes. Patient's symptoms greatly improved after fluid administration safe for discharge at this time. Patient was instructed to follow-up with her oncology appointment next Friday or sooner in the emergency department if her symptoms worsen. I feel patient was behind on her fluids due to her signs of dry oral mucous membranes and her improvement with fluids in the ED - Vital Signs Vital signs: Temp Pulse Resp BP Pulse Ox 97.8 F 118 H 24 H 111/69 96 02/10/18 22:44 02/10/18 22:44 02/10/18 22:44 02/10/18 22:44 02/10/18 22:44 - Laboratory Result Diagrams: 02/11/18 00:38 02/11/18 00:38 Laboratory results interpreted by me: 02/11/18 02/11/18 02/11/18 00:38 00:38 00:49 WBC 3.6 L RBC 2.80 L Hgb 10.2 L Hct 29.1 L MCV 104 H MCH 36.4 H RDW 17.8 H Plt Count 66 L Band Neutrophils % 2 L Metamyelocytes % 2 H Carbon Dioxide 32 H AST 71 H Total Protein 5.8 L Albumin 2.9 L Urine Protein 100 H Urine Bilirubin MODERATE H Urine Urobilinogen 4.0 H Urine Ascorbic Acid 40 H Discharge - Discharge Clinical Impression: Dehydration Condition: Good Disposition: HOME, SELF-CARE Instructions: Dehydration ([facility]) Referrals: CRUZ COOK MD [Primary Care Provider] - Follow up as needed
[2018-02-11 02:08] VITALS: BP 106/69
== END 2018-02-11 02:07 | disposition home or self-care (01) ==
LOC: ER 22:23
DX: E86.0 Dehydration (principal); R53.1 Weakness; R53.83 Other fatigue; J43.9 Emphysema, unspecified; F17.200 Nicotine dependence, unspecified, uncomplicated; Z85.3 Personal history of malignant neoplasm of breast; Z91.040 Latex allergy status; Z88.5 Allergy status to narcotic agent; Z88.2 Allergy status to sulfonamides
CPT/HCPCS: 36415; 80053; 81001; 83735; 85025; 85610; 96360; 99285

== ENCOUNTER 2018-02-16 17:01 | Emergency (ER) | payer MEDICAID ==
[2018-02-16 17:17] VITALS: BP 106/69
--- NOTE | 2018-02-16 18:03 | ER Document Report ---
ED Medical Screen (RME) - General Chief Complaint: Abnormal Lab Results Stated Complaint: HANDS CRAMPING,ABNORMAL LABS Time Seen by Provider: 02/16/18 17:21 Mode of Arrival: Ambulatory Information source: Patient, DrIleana Prado, [facility] Records Notes: 52-year-old female with COPD, metastatic breast cancer presents from home after her oncologist called to tell her that her platelets have now dropped to 40. Patient also complaining of intermittent left-sided chest pain, worsening shortness of breath. Patient is on home oxygen. I have greeted and performed a rapid initial assessment of this patient. A comprehensive ED assessment and evaluation of the patient, analysis of test results and completion of medical decision making process we will be contacted by additional ED providers. PHYSICAL EXAMINATION: Vital signs reviewed GENERAL: Well-appearing, well-nourished and in no acute distress. LUNGS: No respiratory distress Musculoskeletal: Normal range of motion NEUROLOGICAL: Normal speech, normal gait. PSYCH: Normal mood, normal affect. SKIN: Warm, Dry, normal turgor, no rashes or lesions noted. TRAVEL OUTSIDE OF THE [place] IN LAST 30 DAYS: No - HPI Onset: Other Onset/Duration: Intermittent Quality of pain: Achy Severity: Mild Associated Symptoms: Chest pain Exacerbated by: Denies Relieved by: Denies Similar symptoms previously: Yes Recently seen / treated by doctor: Yes - Related Data Smoking: Non-smoker Frequency of alcohol use: None Drug Abuse: None Allergies/Adverse Reactions: latex Allergy (Severe, Verified 12/25/17 00:42) blisters,rash morphine [Morphine] Allergy (Severe, Verified 12/25/17 00:42) short of breath Sulfa (Sulfonamide Antibiotics) Allergy (Intermediate, Verified 12/25/17 00:42) rash Plastic tape Adverse Reaction (Uncoded 12/25/17 00:42) Blisters Past Medical History - Social History Chew tobacco use (# tins/day): No Frequency of alcohol use: None Drug Abuse: None - Past Medical History Cardiac Medical History: Denies: Hx Coronary Artery Disease, Hx Heart Attack, Hx Hypertension Pulmonary Medical History: Reports: Hx Asthma, Hx COPD - emphysema, Hx Pneumonia Denies: Hx Bronchitis Neurological Medical History: Denies: Hx Cerebrovascular Accident, Hx Seizures Renal/ Medical History: Denies: Hx Peritoneal Dialysis Malignancy Medical History: Reports: Hx Breast Cancer - Stage IV, mets to L5 and R & L posterior parietal skull. Musculoskeltal Medical History: Reports Hx Arthritis - generalized, Reports Hx Musculoskeletal Deformity, Reports Hx Musculoskeletal Trauma Psychiatric Medical History: Reports: Hx Anxiety Traumatic Medical History: Reports: Hx Fractures Past Surgical History: Reports: Hx Breast Surgery - Right lumpectomy x2 w/ axillary lymph node diseection., Hx Cholecystectomy, Hx Orthopedic Surgery - Left patellar reconstruction, Hx Tonsillectomy, Hx Tubal Ligation. Denies: Hx Hysterectomy - Immunizations Immunizations up to date: Yes Hx Diphtheria, Pertussis, Tetanus Vaccination: Yes Physical Exam - Vital signs Vitals: Temp Pulse Resp BP Pulse Ox 97.6 F 108 H 18 106/69 98 02/16/18 17:14 02/16/18 17:14 02/16/18 17:14 02/16/18 17:14 02/16/18 17:14 Course - Vital Signs Vital signs: Temp Pulse Resp BP Pulse Ox 97.6 F 108 H 18 106/69 98 02/16/18 17:14 02/16/18 17:14 02/16/18 17:14 02/16/18 17:14 02/16/18 17:14 Doctor's Discharge - Discharge Referrals: CRUZ COOK MD [Primary Care Provider] - Follow up as needed
[2018-02-16 18:39] LABS: HEMATOCRIT 28.4 % (36.0-47.0); HEMOGLOBIN 9.6 g/dL (12.0-15.5); MEAN CORPUSCULAR HEMOGLOBIN 35.9 pg (27.0-33.4); MEAN CORPUSCULAR HGB CONC 33.7 g/dL (32.0-36.0); MEAN CORPUSCULAR VOLUME 106 fl (80-97); RED BLOOD COUNT 2.67 10^6/uL (3.72-5.28); RED CELL DISTRIBUTION WIDTH 18.4 % (11.5-14.0)
[2018-02-16 18:47] LABS: ALANINE AMINOTRANSFERASE 49 U/L (9-52); ALKALINE PHOSPHATASE 131 U/L (38-126); ASPARTATE AMINO TRANSFERASE 86 U/L (14-36); BILIRUBIN,DIRECT 0.5 mg/dL (0.0-0.4); BILIRUBIN,TOTAL 0.8 mg/dL (0.2-1.3); CALCIUM 9.5 mg/dL (8.4-10.2)
[2018-02-16 18:56] LABS: ANION GAP 11 (5-19); BLOOD UREA NITROGEN 13 mg/dL (7-20); CARBON DIOXIDE 28 mmol/L (22-30); CHLORIDE 100 mmol/L (98-107); GLUCOSE 110 mg/dL (75-110); SODIUM 138.9 mmol/L (137-145); TOTAL PROTEIN 5.9 g/dL (6.3-8.2)
[2018-02-16 18:57] LABS: PLATELET COUNT 41 10^3/uL (150-450)
--- NOTE | 2018-02-16 18:58 | ER Document Report ---
ED General - General Chief Complaint: Abnormal Lab Results Stated Complaint: HANDS CRAMPING,ABNORMAL LABS Time Seen by Provider: 02/16/18 17:21 Mode of Arrival: Ambulatory Notes: Patient is a 52-year-old female that presents to the emergency department for chief complaint of muscle cramping, and complaint of low platelets. Patient states she has been having a cough and complaining of rib cramping over the last few days. She was seen by her oncologist yesterday and had a blood draw and she states that her platelets were low at 40,000, she thinks that this is contributing to her muscle aches and cramps. She is also feeling this in her legs and arms as well. She thinks maybe she was getting a little bit dehydrated. She does have significant COPD which she is using inhalers for, she was taking ibuprofen 600 mg 3 times daily for her arthritis pains as well. She currently rates the pain as a 4 out of 10, and constant in nature. Past Medical History: Metastatic breast carcinoma to the bones, COPD Past Surgical History: Lumpectomies, tonsillectomy, knee surgery Social History: admits to smoking cigarettes daily, denies alcohol or drug use. Family History: Reviewed and noncontributory for presenting illness Allergies: Reviewed, see documented allergy list. REVIEW OF SYSTEMS: Unless otherwise stated in this report the patient's positive and negative responses for review of systems for constitutional, eyes, ENT, cardiovascular, respiratory, gastrointestinal, neurological, genitourinary, musculoskeletal, and integumentary systems and related systems to the presenting problem are either as stated in the HPI or were not pertinent or were negative for the symptoms and/or complaints related to the presenting medical problem. PHYSICAL EXAMINATION: Vital signs reviewed, nursing noted reviewed. GENERAL: Well-developed well-nourished female, no immediate distress HEAD: Atraumatic, normocephalic. EYES: Eyes appear normal, extraocular movements intact, sclera anicteric, conjunctiva are normal. ENT: nares patent, oropharynx clear without exudates. Moist mucous membranes. Patient is missing several teeth, but no evidence of abscess NECK: Normal range of motion, supple without lymphadenopathy LUNGS: Breath sounds clear to auscultation bilaterally and equal. No wheezes rales or rhonchi. Rib and chest wall tenderness with palpation bilaterally HEART: Rate tachycardic, regular rhythm, no audible murmurs ABDOMEN: Soft, obese, nontender, normoactive bowel sounds. No rebound, guarding , or rigidity. No masses appreciated. EXTREMITIES: Mild tenderness to palpation to the upper and lower extremities bilaterally, good range of motion, no pitting or edema. NEUROLOGICAL: No focal neurological deficits. Moves all extremities spontaneously Motor and sensory grossly intact on exam. PSYCH: Normal mood, normal affect. SKIN: Warm, Dry, normal turgor, no rashes or lesions noted on exposed skin TRAVEL OUTSIDE OF THE [place] IN LAST 30 DAYS: No - Related Data Allergies/Adverse Reactions: latex Allergy (Severe, Verified 12/25/17 00:42) blisters,rash morphine [Morphine] Allergy (Severe, Verified 12/25/17 00:42) short of breath Sulfa (Sulfonamide Antibiotics) Allergy (Intermediate, Verified 12/25/17 00:42) rash Plastic tape Adverse Reaction (Uncoded 12/25/17 00:42) Blisters Past Medical History - General Information source: Patient, Dr. Prado, [facility] Records - Social History Smoking Status: Current Every Day Smoker Chew tobacco use (# tins/day): No Frequency of alcohol use: None Drug Abuse: None Family History: Reviewed & Not Pertinent Patient has suicidal ideation: No Patient has homicidal ideation: No - Past Medical History Cardiac Medical History: Denies: Hx Coronary Artery Disease, Hx Heart Attack, Hx Hypertension Pulmonary Medical History: Reports: Hx Asthma, Hx COPD - emphysema, Hx Pneumonia Denies: Hx Bronchitis Neurological Medical History: Denies: Hx Cerebrovascular Accident, Hx Seizures Renal/ Medical History: Denies: Hx Peritoneal Dialysis Malignancy Medical History: Reports: Hx Breast Cancer - Stage IV, mets to L5 and R & L posterior parietal skull. Musculoskeletal Medical History: Reports Hx Arthritis - generalized, Reports Hx Musculoskeletal Deformity, Reports Hx Musculoskeletal Trauma Psychiatric Medical History: Reports: Hx Anxiety Traumatic Medical History: Reports: Hx Fractures Past Surgical History: Reports: Hx Breast Surgery - Right lumpectomy x2 w/ axillary lymph node diseection., Hx Cholecystectomy, Hx Orthopedic Surgery - Left patellar reconstruction, Hx Tonsillectomy, Hx Tubal Ligation. Denies: Hx Hysterectomy - Immunizations Immunizations up to date: Yes Hx Diphtheria, Pertussis, Tetanus Vaccination: Yes Hx Pneumococcal Vaccination: 01/26/15 Physical Exam - Vital signs Vitals: Temp Pulse Resp BP Pulse Ox 97.6 F 108 H 18 106/69 98 02/16/18 17:14 02/16/18 17:14 02/16/18 17:14 02/16/18 17:14 02/16/18 17:14 Course - Re-evaluation Re-evalutation: Patient seen and examined vital signs reviewed. Laboratory data and imaging were ordered as appropriate for the patient's presenting symptoms and complaint, with consideration of any critical or life threatening conditions that may be associated with their obtained history and exam as noted above. Patient did have IV fluid, DuoNeb's, and Tylenol ordered, however the patient did not receive these medications due to an emergency that occurred in the department, and she did not want to wait to receive them, and was discharged prior to receiving medications. Results were reviewed when available and demonstrated thrombocytopenia with a count of 41,000, patient's anemia is at baseline, troponin negative, EKG unremarkable and unchanged from prior, chest x-ray negative for pneumonia The patient was re-evaluated and was stable, heart rate actually improved Evaluation was most consistent with musculoskeletal rib pain, thrombocytopenia, the pain most likely related to the patient's coughing she is advised to continue Mucinex and her breathing treatments, she is advised to avoid NSAIDs as this will lower her platelet count, I did discuss her blood work with her oncologist Dr. Cook, who stated that this is around her baseline and he did not wish for any further treatment, no active bleeding or indication for transfusion. Results were discussed with the patient at this point, after careful consideration I feel that that patient can be discharged from the emergency department, the patient was educated treatments and reasons to return to the emergency department based on their presumed diagnosis as noted above, they were advised to followup with a primary care physician in 2-3 days. Patient was agreeable to plan of care. *Note is created using voice recognition software and may contain spelling, syntax or grammatical errors. Laboratory 02/16/18 02/16/18 02/16/18 18:12 18:12 18:12 WBC 3.0 L RBC 2.67 L Hgb 9.6 L Hct 28.4 L MCV 106 H MCH 35.9 H MCHC 33.7 RDW 18.4 H Plt Count 41 L Total Counted 100 Seg Neutrophils % Not Reportable Seg Neuts % (Manual) 69 Lymphocytes % Not Reportable Lymphocytes % (Manual) 26 Monocytes % Not Reportable Monocytes % (Manual) 1 L Eosinophils % Not Reportable Eosinophils % (Manual) 2 Basophils % Not Reportable Basophils % (Manual) 1 Metamyelocytes % 1 H Absolute Neutrophils Not Reportable Abs Neuts (Manual) 2.1 Absolute Lymphocytes Not Reportable Abs Lymphs (Manual) 0.8 Absolute Monocytes Not Reportable Abs Monocytes (Manual) 0.0 L Absolute Eosinophils Not Reportable Absolute Eos (Manual) 0.1 Absolute Basophils Not Reportable Abs Basophils (Manual) 0.0 Nucleated RBCs 2 Platelet Comment DECREASED Polychromasia SLIGHT Poikilocytosis 1+ Anisocytosis 2+ Macrocytosis 2+ Tear Drop Cells SLIGHT Ovalocytes SLIGHT Sodium 138.9 Potassium 4.0 Chloride 100 Carbon Dioxide 28 Anion Gap 11 BUN 13 Creatinine 1.19 Est GFR ( Amer) 57 L Est GFR (Non-Af Amer) 47 L Glucose 110 Calcium 9.5 Total Bilirubin 0.8 Direct Bilirubin 0.5 H Neonat Total Bilirubin Not Reportable Neonat Direct Bilirubin Not Reportable Neonat Indirect Bili Not Reportable AST 86 H ALT 49 Alkaline Phosphatase 131 H Troponin I < 0.012 Total Protein 5.9 L Albumin 3.0 L Blood Type Antibody Screen 02/16/18 18:12 WBC RBC Hgb Hct MCV MCH MCHC RDW Plt Count Total Counted Seg Neutrophils % Seg Neuts % (Manual) Lymphocytes % Lymphocytes % (Manual) Monocytes % Monocytes % (Manual) Eosinophils % Eosinophils % (Manual) Basophils % Basophils % (Manual) Metamyelocytes % Absolute Neutrophils Abs Neuts (Manual) Absolute Lymphocytes Abs Lymphs (Manual) Absolute Monocytes Abs Monocytes (Manual) Absolute Eosinophils Absolute Eos (Manual) Absolute Basophils Abs Basophils (Manual) Nucleated RBCs Platelet Comment Polychromasia Poikilocytosis Anisocytosis Macrocytosis Tear Drop Cells Ovalocytes Sodium Potassium Chloride Carbon Dioxide Anion Gap BUN Creatinine Est GFR ( Amer) Est GFR (Non-Af Amer) Glucose Calcium Total Bilirubin Direct Bilirubin Neonat Total Bilirubin Neonat Direct Bilirubin Neonat Indirect Bili AST ALT Alkaline Phosphatase Troponin I Total Protein Albumin Blood Type O POSITIVE Antibody Screen NEGATIVE Chest X-Ray 02/16/18 18:01 IMPRESSION: Mild chronic lung changes with no acute cardiopulmonary disease. Osseous metastases. - Vital Signs Vital signs: Temp Pulse Resp BP Pulse Ox 97.6 F 108 H 18 106/69 98 10/01/18 17:14 02/16/18 17:14 02/16/18 17:14 02/16/18 17:14 02/16/18 17:14 - Laboratory Result Diagrams: 02/16/18 18:12 02/16/18 18:12 Laboratory results interpreted by me: 02/16/18 02/16/18 18:12 18:12 WBC 3.0 L RBC 2.67 L Hgb 9.6 L Hct 28.4 L MCV 106 H MCH 35.9 H RDW 18.4 H Plt Count 41 L Monocytes % (Manual) 1 L Metamyelocytes % 1 H Abs Monocytes (Manual) 0.0 L Est GFR ( Amer) 57 L Est GFR (Non-Af Amer) 47 L Direct Bilirubin 0.5 H AST 86 H Alkaline Phosphatase 131 H Total Protein 5.9 L Albumin 3.0 L - EKG Interpretation by Me Additional EKG results interpreted by me: EKG demonstrates ectopic atrial rhythm with a ventricular rate of 99 bpm, normal axis, normal intervals, this is compared with prior EKG from 01/26/2018, without significant change. Discharge - Discharge Clinical Impression: Muscle cramping, Thrombocytopenia COPD (chronic obstructive pulmonary disease) Qualifiers: COPD type: unspecified COPD Qualified Code(s): J44.9 - Chronic obstructive pulmonary disease, unspecified Condition: Stable Disposition: HOME, SELF-CARE Instructions: Chronic Obstructive Lung Disease ([facility]), Thrombocytopenia ([facility]) Additional Instructions: Please avoid using any aspirin, Advil, ibuprofen, naproxen, or Aleve as this may further lower your platelet count, please follow-up with your primary care physician and oncologist. Take Tylenol for your pain. Follow-up with pain management. Referrals: CRUZ COOK MD [Primary Care Provider] - Follow up in 3-5 days
[2018-02-16 19:00] LABS: ABSOLUTE LYMPHOCYTES# (MANUAL) 0.8 10^3/uL (0.5-4.7); ABSOLUTE NEUTROPHILS# (MANUAL) 2.1 10^3/uL (1.7-8.2); BASOPHILS % (MANUAL) 1 % (0-2); EOSINOPHILS % (MANUAL) 2 % (0-6); LYMPHOCYTES % (MANUAL) 26 % (13-45); METAMYELOCYTES % (MANUAL) 1 % (0); MONOCYTES % (MANUAL) 1 % (3-13); NUCLEATED RED BLOOD CELLS 2 /100 WBC (0); SEGMENTED NEUTROPHILS % (MAN) 69 % (42-78); TOTAL CELLS COUNTED 100
[2018-02-16 19:03] LABS: OVALOCYTES SLIGHT
[2018-02-16 19:04] LABS: ANISOCYTOSIS 2+; PLATELET COMMENT DECREASED; POIKILOCYTOSIS 1+; POLYCHROMASIA SLIGHT; TEAR DROP CELLS SLIGHT
[2018-02-16] MEDS ORDERED: NORMAL SALINE 500 ML IV ONE (19:23)
[2018-02-16] MEDS ORDERED: IPRATROPIUM/ALBUTEROL 0.5-2.5 MG/3 ML AMPUL NEB ONE (19:23)
[2018-02-16] MEDS ORDERED: ACETAMINOPHEN 325 MG TABLET PO ONE (19:24)
--- NOTE | 2018-02-16 19:30 | RADIOLOGY REPORT (SQ) ---
EXAM DESCRIPTION: CHEST 2 VIEWS COMPLETED DATE/TIME: 02/16/2018 7:08 pm REASON FOR STUDY: chest pain COMPARISON: 02/05/2018 EXAM PARAMETERS: NUMBER OF VIEWS: two views TECHNIQUE: Digital Frontal and Lateral radiographic views of the chest acquired. RADIATION DOSE: NA LIMITATIONS: none FINDINGS: LUNGS AND PLEURA: Hyperexpansion of the lungs. No infiltrate or effusion. MEDIASTINUM AND HILAR STRUCTURES: No masses or contour abnormalities. HEART AND VASCULAR STRUCTURES: Heart normal size. No evidence for failure. BONES: Sclerotic metastases are scattered throughout the visualized spine. HARDWARE: None in the chest. OTHER: No other significant finding. IMPRESSION: Mild chronic lung changes with no acute cardiopulmonary disease. Osseous metastases. TECHNICAL DOCUMENTATION: JOB ID: [id number] [employer]- All Rights Reserved Reading location - IP/workstation name: [email or web address]
--- NOTE | 2018-02-16 22:55 | EKG REPORT ---
SEVERITY:- BORDERLINE ECG - ECTOPIC ATRIAL RHYTHM : Confirmed by: Brittany Varma 16-Feb-2018 22:55:29
== END 2018-02-16 20:30 | disposition home or self-care (01) ==
LOC: ER 17:01
DX: D69.6 Thrombocytopenia, unspecified (principal); J43.9 Emphysema, unspecified; R25.2 Cramp and spasm; R05 Cough; M79.10 Myalgia, unspecified site; R00.0 Tachycardia, unspecified; F17.210 Nicotine dependence, cigarettes, uncomplicated; Z85.3 Personal history of malignant neoplasm of breast; Z85.830 Personal history of malignant neoplasm of bone; Z91.040 Latex allergy status; Z88.5 Allergy status to narcotic agent; Z88.2 Allergy status to sulfonamides
CPT/HCPCS: 36415; 71046; 80053; 84484; 85025; 86850; 86900; 86901; 93005; 93010; 99284

== ENCOUNTER 2018-02-18 18:10 | Emergency (ER) | payer MEDICAID ==
[2018-02-18] MEDS ORDERED: NORMAL SALINE 1000 ML 1,000 ML IV PRN (18:52)
--- NOTE | 2018-02-18 18:53 | ER Document Report ---
ED Medical Screen (RME) - General Chief Complaint: Abnormal Lab Results Stated Complaint: CRAMPING/WEAKNESS Time Seen by Provider: 02/18/18 18:52 Notes: 52 years old female with a history of metastatic breast cancer, presents today with cramps of the upper limbs and lower limbs, claiming that she is dehydrated. She up she was here a few days ago with a low platelets of 41. TRAVEL OUTSIDE OF THE [place] IN LAST 30 DAYS: No - Related Data Allergies/Adverse Reactions: latex Allergy (Severe, Verified 02/18/18 18:27) blisters,rash morphine [Morphine] Allergy (Severe, Verified 02/18/18 18:27) short of breath Sulfa (Sulfonamide Antibiotics) Allergy (Intermediate, Verified 02/18/18 18:27) rash Plastic tape Adverse Reaction (Uncoded 02/18/18 18:27) Blisters Past Medical History - Social History Chew tobacco use (# tins/day): No Frequency of alcohol use: None - Past Medical History Cardiac Medical History: Denies: Hx Coronary Artery Disease, Hx Heart Attack, Hx Hypertension Pulmonary Medical History: Reports: Hx Asthma, Hx COPD - emphysema, Hx Pneumonia Denies: Hx Bronchitis Neurological Medical History: Denies: Hx Cerebrovascular Accident, Hx Seizures Renal/ Medical History: Denies: Hx Peritoneal Dialysis Malignancy Medical History: Reports: Hx Breast Cancer - Stage IV, mets to L5 and R & L posterior parietal skull. Musculoskeltal Medical History: Reports Hx Arthritis - generalized, Reports Hx Musculoskeletal Deformity, Reports Hx Musculoskeletal Trauma Psychiatric Medical History: Reports: Hx Anxiety Traumatic Medical History: Reports: Hx Fractures Past Surgical History: Reports: Hx Breast Surgery - Right lumpectomy x2 w/ axillary lymph node diseection., Hx Cholecystectomy, Hx Orthopedic Surgery - Left patellar reconstruction, Hx Tonsillectomy, Hx Tubal Ligation. Denies: Hx Hysterectomy - Immunizations Immunizations up to date: Yes Hx Diphtheria, Pertussis, Tetanus Vaccination: Yes Physical Exam - Vital signs Vitals: Temp Pulse Resp BP Pulse Ox 99.5 F 126 H 19 110/67 96 02/18/18 18:19 02/18/18 18:19 02/18/18 18:19 02/18/18 18:19 02/18/18 18:19 Course - Vital Signs Vital signs: Temp Pulse Resp BP Pulse Ox 99.5 F 126 H 19 110/67 96 02/18/18 18:19 02/18/18 18:19 02/18/18 18:19 02/18/18 18:19 02/18/18 18:19 Doctor's Discharge - Discharge Referrals: CRUZ COOK MD [Primary Care Provider] - Follow up as needed
[2018-02-18 20:57] LABS: HEMATOCRIT 26.9 % (36.0-47.0); HEMOGLOBIN 9.3 g/dL (12.0-15.5); MEAN CORPUSCULAR HGB CONC 34.4 g/dL (32.0-36.0); MEAN CORPUSCULAR VOLUME 105 fl (80-97); RED BLOOD COUNT 2.57 10^6/uL (3.72-5.28); RED CELL DISTRIBUTION WIDTH 19.8 % (11.5-14.0); WHITE BLOOD COUNT 3.3 10^3/uL (4.0-10.5)
[2018-02-18 20:59] LABS: ALANINE AMINOTRANSFERASE 42 U/L (9-52); ALBUMIN 2.9 g/dL (3.5-5.0); ALKALINE PHOSPHATASE 133 U/L (38-126); ASPARTATE AMINO TRANSFERASE 87 U/L (14-36); BILIRUBIN,DIRECT 0.7 mg/dL (0.0-0.4); BLOOD UREA NITROGEN 22 mg/dL (7-20); CALCIUM 8.9 mg/dL (8.4-10.2); GLUCOSE 106 mg/dL (75-110); PLATELET COUNT 41 10^3/uL (150-450); POTASSIUM 4.2 mmol/L (3.6-5.0); TOTAL PROTEIN 6.1 g/dL (6.3-8.2)
[2018-02-18 21:02] LABS: APPEARANCE,URINE CLEAR; BILIRUBIN,URINE NEGATIVE (NEGATIVE); COLOR,URINE YELLOW; GLUCOSE, URINE NEGATIVE (NEGATIVE); KETONES,URINE NEGATIVE (NEGATIVE); LEUKOCYTE ESTERASE,URINE NEGATIVE (NEGATIVE); NITRITE,URINE NEGATIVE (NEGATIVE); PROTEIN,URINE NEGATIVE (NEGATIVE); URINE SPECIFIC GRAVITY 1.015
[2018-02-18 21:04] LABS: ANION GAP 5 (5-19); CARBON DIOXIDE 33 mmol/L (22-30); CHLORIDE 98 mmol/L (98-107); SODIUM 135.5 mmol/L (137-145)
[2018-02-18 21:12] LABS: ABSOLUTE LYMPHOCYTES# (MANUAL) 0.8 10^3/uL (0.5-4.7); ABSOLUTE MONOCYTES # (MANUAL) 0.4 10^3/uL (0.1-1.4); ABSOLUTE NEUTROPHILS# (MANUAL) 2.1 10^3/uL (1.7-8.2); BAND NEUTROPHILS % (MANUAL) 1 % (3-5); BASOPHILS % (MANUAL) 0 % (0-2); EOSINOPHILS % (MANUAL) 1 % (0-6); LYMPHOCYTES % (MANUAL) 25 % (13-45); MONOCYTES % (MANUAL) 11 % (3-13); NUCLEATED RED BLOOD CELLS 2 /100 WBC (0); SEGMENTED NEUTROPHILS % (MAN) 62 % (42-78); TOTAL CELLS COUNTED 100
[2018-02-18 21:17] LABS: TOXIC GRANULATION SLIGHT
[2018-02-18] MEDS ORDERED: IPRATROPIUM/ALBUTEROL 0.5-2.5 MG/3 ML AMPUL NEB ONE (21:17)
[2018-02-18 21:18] LABS: ANISOCYTOSIS 2+; PLATELET COMMENT DECREASED; POIKILOCYTOSIS SLIGHT
[2018-02-18] MEDS ORDERED: DOXYCYCLINE HYCLATE 100 MG TABLET PO ONE (21:42)
[2018-02-18] MEDS ORDERED: LIDOCAINE 1% INJ-PF (10 MG/ML) 30 ML SDV NEB ONE (21:52)
[2018-02-18 22:04] VITALS: BP 109/64
[2018-02-18] MEDS ORDERED: BENZONATATE 100 MG CAPSULE PO ONE (22:29)
--- NOTE | 2018-02-18 22:31 | ER Document Report ---
ED General - General Chief Complaint: Abnormal Lab Results Stated Complaint: CRAMPING/WEAKNESS Time Seen by Provider: 02/18/18 18:52 TRAVEL OUTSIDE OF THE [place] IN LAST 30 DAYS: No - HPI Patient complains to provider of: Cough weakness Notes: Patient was seen in the hospital approximate 48 hours prior because of similar complaint patient returning again. Patient has a history of metastatic cancer patient currently is on any chemotherapy patient states cough minimal production no fevers no chills. Patient denies any shortness of breath is on home O2. Patient is concerned that her platelets are low causing her to cramp patient that she is drinking plenty water patient has a Mountain Dew at bedside that she continues to drink. - Related Data Allergies/Adverse Reactions: latex Allergy (Severe, Verified 02/18/18 18:27) blisters,rash morphine [Morphine] Allergy (Severe, Verified 02/18/18 18:27) short of breath Sulfa (Sulfonamide Antibiotics) Allergy (Intermediate, Verified 02/18/18 18:27) rash Plastic tape Adverse Reaction (Uncoded 02/18/18 18:27) Blisters Past Medical History - Social History Smoking Status: Current Every Day Smoker Chew tobacco use (# tins/day): No Frequency of alcohol use: None Family History: Reviewed & Not Pertinent Patient has suicidal ideation: No Patient has homicidal ideation: No - Past Medical History Cardiac Medical History: Denies: Hx Coronary Artery Disease, Hx Heart Attack, Hx Hypertension Pulmonary Medical History: Reports: Hx Asthma, Hx COPD - emphysema, Hx Pneumonia Denies: Hx Bronchitis Neurological Medical History: Denies: Hx Cerebrovascular Accident, Hx Seizures Renal/ Medical History: Denies: Hx Peritoneal Dialysis Malignancy Medical History: Reports: Hx Breast Cancer - Stage IV, mets to L5 and R & L posterior parietal skull. Musculoskeletal Medical History: Reports Hx Arthritis - generalized, Reports Hx Musculoskeletal Deformity, Reports Hx Musculoskeletal Trauma Psychiatric Medical History: Reports: Hx Anxiety Traumatic Medical History: Reports: Hx Fractures Past Surgical History: Reports: Hx Breast Surgery - Right lumpectomy x2 w/ axillary lymph node diseection., Hx Cholecystectomy, Hx Orthopedic Surgery - Left patellar reconstruction, Hx Tonsillectomy, Hx Tubal Ligation. Denies: Hx Hysterectomy - Immunizations Immunizations up to date: Yes Hx Diphtheria, Pertussis, Tetanus Vaccination: Yes Hx Pneumococcal Vaccination: 01/26/15 Review of Systems - Review of Systems Constitutional: No symptoms reported EENT: No symptoms reported Cardiovascular: No symptoms reported Respiratory: Cough Gastrointestinal: No symptoms reported Genitourinary: No symptoms reported Female Genitourinary: No symptoms reported Musculoskeletal: Other - Cramps Skin: No symptoms reported Hematologic/Lymphatic: No symptoms reported Neurological/Psychological: No symptoms reported -: Yes All other systems reviewed and negative Physical Exam - Vital signs Vitals: Temp Pulse Resp BP Pulse Ox 99.5 F 126 H 19 110/67 96 02/18/18 18:19 02/18/18 18:19 02/18/18 18:19 02/18/18 18:19 02/18/18 18:19 Interpretation: Normal - General General appearance: Appears well, Alert - HEENT Head: Normocephalic, Atraumatic Eyes: Normal Pupils: PERRL - Respiratory Respiratory status: No respiratory distress Chest status: Nontender Breath sounds: Wheezing Chest palpation: Normal - Cardiovascular Rhythm: Regular Heart sounds: Normal auscultation Murmur: No - Abdominal Inspection: Normal Distension: No distension Bowel sounds: Normal Tenderness: Nontender Organomegaly: No organomegaly - Back Back: Normal, Nontender - Extremities General upper extremity: Normal inspection, Nontender, Normal color, Normal ROM , Normal temperature General lower extremity: Normal inspection, Nontender, Normal color, Normal ROM , Normal temperature, Normal weight bearing. No: Aicha's sign - Neurological Neuro grossly intact: Yes Cognition: Normal Orientation: AAOx4 Franny Coma Scale Eye Opening: Spontaneous Franny Coma Scale Verbal: Oriented Franny Coma Scale Motor: Obeys Commands Franny Coma Scale Total: 15 Speech: Normal Motor strength normal: LUE, RUE, LLE, RLE Sensory: Normal - Psychological Associated symptoms: Normal affect, Normal mood - Skin Skin Temperature: Warm Skin Moisture: Dry Skin Color: Normal Course - Re-evaluation Re-evalutation: 02/18/18 23:13 Laboratory studies not show any significant change from her previous visit. Did discuss the patient's case again with her oncologist Dr. Adeel sanchez because of the cough requesting antibiotic coverage and agrees with doxycycline at this time. Patient was given breathing treatments improvement of the wheezing. Patient was given a liter of fluids. No other critical pathology seen patient will be discharged home follow-up with your PCP. - Vital Signs Vital signs: Temp Pulse Resp BP Pulse Ox 99.0 F 113 H 18 109/64 97 02/18/18 22:02 02/18/18 22:02 02/18/18 22:02 02/18/18 22:02 02/18/18 22:02 - Laboratory Result Diagrams: 02/18/18 20:27 02/18/18 20:27 Laboratory results interpreted by me: 02/18/18 02/18/18 02/18/18 20:27 20:27 20:27 WBC 3.3 L RBC 2.57 L Hgb 9.3 L Hct 26.9 L MCV 105 H MCH 36.0 H RDW 19.8 H Plt Count 41 L Band Neutrophils % 1 L Sodium 135.5 L Carbon Dioxide 33 H BUN 22 H Est GFR ( Amer) 55 L Est GFR (Non-Af Amer) 45 L Direct Bilirubin 0.7 H AST 87 H Alkaline Phosphatase 133 H Total Protein 6.1 L Albumin 2.9 L Urine Urobilinogen 4.0 H Urine Ascorbic Acid 40 H Discharge - Discharge Clinical Impression: Thrombocytopenia, Cough Condition: Good Disposition: HOME, SELF-CARE Instructions: Bronchitis ([facility]), Chronic Obstructive Lung Disease ([facility]), Cough Suppressant & Expectorant Medications, Thrombocytopenia ([facility]) Additional Instructions: Your laboratory studies today again shows thrombocytopenia. Your lung examination reveals slight wheezing. We recommend continue with your inhalers at home. I did discuss your case with your oncologist Dr. Sylvester request that we start you on antibiotic doxycycline for possible underlying early bronchitis continue with the doxycycline and Tessalon Perles as prescribed. Follow-up with your primary care physician in the next 3-5 days Prescriptions: Benzonatate [Tessalon Perle 100 mg Capsule] 100 mg PO Q8HP PRN #40 cap PRN Reason: Doxycycline Hyclate 100 mg PO BID #14 capsule Referrals: CRUZ COOK MD [Primary Care Provider] - Follow up in 3-5 days
== END 2018-02-18 23:13 | disposition home or self-care (01) ==
LOC: ER 18:10
DX: D69.6 Thrombocytopenia, unspecified (principal); R05 Cough; F17.200 Nicotine dependence, unspecified, uncomplicated; J43.9 Emphysema, unspecified; Z99.81 Dependence on supplemental oxygen; Z85.3 Personal history of malignant neoplasm of breast; Z85.830 Personal history of malignant neoplasm of bone; Z91.040 Latex allergy status; Z88.5 Allergy status to narcotic agent; Z88.2 Allergy status to sulfonamides
CPT/HCPCS: 36591; 94640; 99283; 96360; 96361; 36415; 85025; 80053; 81001; J3490 ×3; J7620

== ENCOUNTER 2018-02-25 02:19 | Emergency (ER) | payer MEDICAID ==
[2018-02-25] MEDS ORDERED: IPRATROPIUM/ALBUTEROL 0.5-2.5 MG/3 ML AMPUL NEB ONE (02:52)
--- NOTE | 2018-02-25 03:16 | ER Document Report ---
ED General - General Chief Complaint: Chest and L shoulder pain Stated Complaint: SHOULDER PAIN, NO INJURY Time Seen by Provider: 02/25/18 02:39 Notes: Patient is a 52-year-old female presenting to the emergency room complaining of intermittent sharp pains in her left lower back. Patient states pain is "like a pocket knife got me." States all of a sudden she was sitting on the bed smoking a cigarette when she had a sharp pain. Denies pain increasing or decreasing with deep inspiration, movement, or palpation. States she has breast cancer that has metastasized to her bones, states she has intermittent bone pain "everywhere" but this sharp pain was different than normal. Patient currently does not have the pain states it is intermittent and has had it 4 times since onset. Patient states she stopped her chemotherapy last week as per her oncologist Dr. Sylvester due to low platelets. States last radiation was 3 years ago. States she was to this facility on 02/28/2018 diagnosed with bronchitis and put on doxycycline. Patient states she is currently taking those antibiotics. States she was diagnosed with pneumonia 4 weeks ago and Pt stated "I do not think I ever got back to normal." Patient is on O2 2 L/min all the time, admits to "smoking too much." Patient denies fever, shortness of breath, chest pain or tightness, abdominal pain, nausea, vomiting, diarrhea. Patient states she has a consistent cough but denies any rhinorrhea. Past medical history: Breast cancer metastasized to bone, COPD Medications: Patient is unaware states hospital hospitalist Allergies: Sulfa, latex, morphine TRAVEL OUTSIDE OF THE [place] IN LAST 30 DAYS: No - Related Data Allergies/Adverse Reactions: latex Allergy (Severe, Verified 02/18/18 18:27) blisters,rash morphine [Morphine] Allergy (Severe, Verified 02/18/18 18:27) short of breath Sulfa (Sulfonamide Antibiotics) Allergy (Intermediate, Verified 02/18/18 18:27) rash Plastic tape Adverse Reaction (Uncoded 02/18/18 18:27) Blisters Past Medical History - General Information source: Patient - Social History Smoking Status: Current Every Day Smoker Lives with: Family Family History: Reviewed & Not Pertinent - Past Medical History Cardiac Medical History: Denies: Hx Coronary Artery Disease, Hx Heart Attack, Hx Hypertension Pulmonary Medical History: Reports: Hx Asthma, Hx COPD - emphysema, Hx Pneumonia Denies: Hx Bronchitis Neurological Medical History: Denies: Hx Cerebrovascular Accident, Hx Seizures Renal/ Medical History: Denies: Hx Peritoneal Dialysis Malignancy Medical History: Reports: Hx Breast Cancer - Stage IV, mets to L5 and R & L posterior parietal skull. Musculoskeletal Medical History: Reports Hx Arthritis - generalized, Reports Hx Musculoskeletal Deformity, Reports Hx Musculoskeletal Trauma Psychiatric Medical History: Reports: Hx Anxiety Traumatic Medical History: Reports: Hx Fractures Past Surgical History: Reports: Hx Breast Surgery - Right lumpectomy x2 w/ axillary lymph node diseection., Hx Cholecystectomy, Hx Orthopedic Surgery - Left patellar reconstruction, Hx Tonsillectomy, Hx Tubal Ligation. Denies: Hx Hysterectomy - Immunizations Immunizations up to date: Yes Hx Diphtheria, Pertussis, Tetanus Vaccination: Yes Hx Pneumococcal Vaccination: 01/26/15 Review of Systems - Review of Systems Constitutional: See HPI EENT: See HPI Cardiovascular: See HPI Respiratory: See HPI Gastrointestinal: See HPI Genitourinary: No symptoms reported Female Genitourinary: No symptoms reported Musculoskeletal: See HPI Skin: No symptoms reported Hematologic/Lymphatic: See HPI Neurological/Psychological: No symptoms reported Physical Exam - Vital signs Vitals: Temp Pulse Resp BP Pulse Ox 97.7 F 106 H 18 101/58 L 92 02/25/18 02:27 02/25/18 02:27 02/25/18 02:27 02/25/18 02:27 02/25/18 02:27 - Notes Notes: GENERAL: Alert, interacts well. No acute distress. HEAD: Normocephalic, atraumatic. EYES: Pupils equal, round, and reactive to light. Extraocular movements intact. ENT: Oral mucosa moist, tongue midline. NECK: Full range of motion. Supple. Trachea midline. LUNGS: Expiratory wheeze all welsh bilaterally. no rales, or rhonchi. No respiratory distress, speaking in full sentences. On oxygen 2 L/min HEART/CHEST: Regular rate and rhythm. No murmur, No crepitus felt palpation, no increase in pain upon palpation left lower posterior ribs (where pain is) ABDOMEN: Soft, non-tender. Non-distended. Bowel sounds present in all 4 quadrants. EXTREMITIES: Moves all 4 extremities spontaneously. No edema, normal radial and dorsalis pedis pulses bilaterally. No cyanosis. BACK: no cervical, thoracic, lumbar midline tenderness. No saddle anesthesia, normal distal neurovascular exam. NEUROLOGICAL: Alert and oriented x3. Normal speech. PSYCH: Normal affect, normal mood. Course - Re-evaluation Re-evalutation: Upon reexam patient states the stabbing pain has not reoccurred since she has been in the emergency room. Reassessment of lung sounds reveals very minor scant and expiratory wheeze bilateral bases, cleared with a cough. Patient states she had a "coughing fit" which increased the pain in her left back. Patient continues to deny increasing pain on deep inspiration or palpation. Discussed potential need for CTA to rule out pulmonary embolism. Patient states she remembers reading on her chemotherapy medication side effects that a DVT was likely. Patient wishes to proceed with CTA at this time. CTA results show no signs of pulmonary embolism. Patient states since that one coughing episode she has continued without episodes of sharp pain. She has an appointment with her oncologist on . Patient states she has an albuterol inhaler at home, steroid prescription will be given, return precautions given. - Vital Signs Vital signs: Temp Pulse Resp BP Pulse Ox 98.4 F 106 H 20 108/78 100 02/25/18 05:37 02/25/18 02:27 02/25/18 05:37 02/25/18 05:37 02/25/18 05:37 - Laboratory Result Diagrams: 02/25/18 03:21 02/25/18 03:21 Laboratory results interpreted by me: 02/25/18 02/25/18 03:21 03:21 WBC 3.4 L RBC 2.31 L Hgb 8.4 L Hct 24.2 L MCV 105 H MCH 36.2 H RDW 20.6 H Plt Count 33 L Band Neutrophils % 7 H Metamyelocytes % 1 H Carbon Dioxide 34 H Anion Gap 3 L Est GFR (Non-Af Amer) 51 L AST 82 H Alkaline Phosphatase 132 H Total Protein 6.1 L Albumin 2.8 L Discharge - Discharge Clinical Impression: Rib pain on left side, Cough COPD (chronic obstructive pulmonary disease) Qualifiers: COPD type: emphysema Emphysema type: unspecified Qualified Code(s): J43.9 - Emphysema, unspecified Disposition: HOME, SELF-CARE Instructions: Chest Wall Pain ([facility]) Additional Instructions: As we discussed your CT results showed no signs of pulmonary embolism. Because the albuterol helped your respiratory distress I would continue your at home inhaler use. Continue to take antibiotics as prescribed by . I have added a steroid regimen that you should also complete. Be sure to keep all of your appointments with oncology and primary care provider. Return to emergency room should you develop shortness of breath, increased chest pain, or any other concerning symptoms. Prescriptions: Prednisone [Deltasone 20 mg Tablet] 2 tab PO DAILY 5 Days tablet Referrals: CRUZ COOK MD [Primary Care Provider] - Follow up as needed
--- NOTE | 2018-02-25 03:29 | RADIOLOGY REPORT (SQ) ---
EXAM DESCRIPTION: XR CHEST 1 VIEW COMPLETED DATE/TME: 02/25/2018 02:51 CLINICAL HISTORY: 52 years, Female, CP SOB COMPARISON: 02/16/2018 NUMBER OF VIEWS: One TECHNIQUE: AP view the chest LIMITATIONS: None. FINDINGS: No focal consolidation. The heart size is stable. There is no pneumothorax or pleural effusion. A left chest wall port is stable position. IMPRESSION: No acute cardiopulmonary abnormality 2010 [employer]- All Rights Reserved
[2018-02-25 03:41] LABS: HEMATOCRIT 24.2 % (36.0-47.0); HEMOGLOBIN 8.4 g/dL (12.0-15.5); MEAN CORPUSCULAR HEMOGLOBIN 36.2 pg (27.0-33.4); MEAN CORPUSCULAR HGB CONC 34.6 g/dL (32.0-36.0); MEAN CORPUSCULAR VOLUME 105 fl (80-97); RED BLOOD COUNT 2.31 10^6/uL (3.72-5.28); RED CELL DISTRIBUTION WIDTH 20.6 % (11.5-14.0); WHITE BLOOD COUNT 3.4 10^3/uL (4.0-10.5)
[2018-02-25] MEDS ORDERED: ACETAMINOPHEN 325 MG TABLET PO ONE (03:44)
[2018-02-25] MEDS ORDERED: ACETAMINOPHEN 325 MG TABLET ONE (03:45)
[2018-02-25 03:49] LABS: ALANINE AMINOTRANSFERASE 45 U/L (9-52); ALBUMIN 2.8 g/dL (3.5-5.0); ALKALINE PHOSPHATASE 132 U/L (38-126); ASPARTATE AMINO TRANSFERASE 82 U/L (14-36); BILIRUBIN,DIRECT 0.4 mg/dL (0.0-0.4); BILIRUBIN,TOTAL 0.7 mg/dL (0.2-1.3); BLOOD UREA NITROGEN 18 mg/dL (7-20); CALCIUM 8.9 mg/dL (8.4-10.2); CARBON DIOXIDE 34 mmol/L (22-30); CHLORIDE 100 mmol/L (98-107); CREATINE KINASE 49 U/L (30-135); GLUCOSE 95 mg/dL (75-110); POTASSIUM 4.3 mmol/L (3.6-5.0); TOTAL PROTEIN 6.1 g/dL (6.3-8.2)
[2018-02-25 03:54] LABS: SODIUM 137.3 mmol/L (137-145)
[2018-02-25 04:00] LABS: ANION GAP 3 (5-19)
[2018-02-25 04:01] LABS: CREATINE KINASE MB 1.37 ng/mL (<4.55); TROPONIN I < 0.012 ng/mL
[2018-02-25 04:05] LABS: PLATELET COUNT 33 10^3/uL (150-450)
[2018-02-25 04:07] LABS: ABSOLUTE MONOCYTES # (MANUAL) 0.3 10^3/uL (0.1-1.4); BAND NEUTROPHILS % (MANUAL) 7 % (3-5); BASOPHILS % (MANUAL) 0 % (0-2); EOSINOPHILS % (MANUAL) 0 % (0-6); LYMPHOCYTES % (MANUAL) 30 % (13-45); METAMYELOCYTES % (MANUAL) 1 % (0); MONOCYTES % (MANUAL) 10 % (3-13); NUCLEATED RED BLOOD CELLS 4 /100 WBC (0); SEGMENTED NEUTROPHILS % (MAN) 52 % (42-78); TOTAL CELLS COUNTED 100
[2018-02-25 04:16] LABS: POLYCHROMASIA 1+
[2018-02-25 04:17] LABS: ANISOCYTOSIS 3+; PLATELET COMMENT DECREASED
--- NOTE | 2018-02-25 05:55 | RADIOLOGY REPORT (SQ) ---
EXAM DESCRIPTION: CT CHEST ANGIOGRAPHY WITHOUT THEN WITH IV CONTRAST COMPLETED DATE/TME: 02/25/2018 04:55 CLINICAL HISTORY: 52 years, Female, CP, SOB, cancer COMPARISON: None. TECHNIQUE: Axial CT images of the chest were obtained after administration of IV contrast. MPR and MIP reconstructions were performed. DLP 1503 Images stored on PACS. All CT scanners at this facility use dose modulation, iterative reconstruction, and/or weight based dosing when appropriate to reduce radiation dose to as low as reasonably achievable (ALARA). [facility]: Dose Right [facility]: CareDose [facility]: Dose Right [facility]: Teradose 4D [facility]: eHi [employer] LIMITATIONS: None. FINDINGS: Upper abdomen: Partially imaged. Thoracic aorta: Unremarkable. Heart: No right atrial thrombus. RV/LV ratio: Within normal limits. Pulmonary arteries: Technical: Adequate opacification to the level of the segmental vessels. Pulmonary embolus: No low-density filling defect to suggest acute PE. Overall embolic burden: None. Mediastinum: No pathologic sized middle mediastinal lymphadenopathy. The left chest wall port terminates within the atrial caval junction. Tracheobronchial tree: Unremarkable. Lungs: Lobar consolidation: Negative. Pleural effusion: Negative. Pneumothorax: Negative. Other: There are moderate emphysematous changes. There is skin thickening of the left breast with increased density within the left breast. Bones: There is diffuse patchy sclerosis of the bones. IMPRESSION: No CT evidence of acute PE. Diffuse skeletal metastatic disease. Skin thickening with increased density of the left breast, concerning for malignancy. Recommend correlation with mammogram. Emphysematous appearing lungs. TECHNICAL DOCUMENTATION: Quality ID # [id number]: Final reports with documentation of one or more dose reduction techniques (e.g., Automated exposure control, adjustment of the mA and/or kV according to patient size, use of iterative reconstruction technique) 2010 [employer]- All Rights Reserved
[2018-02-25] MEDS ORDERED: PREDNISONE 20 MG TABLET PO ONE (06:03)
[2018-02-25 06:20] VITALS: BP 108/78
--- NOTE | 2018-02-25 10:13 | EKG REPORT ---
SEVERITY:- ABNORMAL ECG - ECTOPIC ATRIAL TACHYCARDIA BORDERLINE INFERIOR Q WAVES : Confirmed by: Alexia Campos MD 25-Feb-2018 10:12:05
== END 2018-02-25 06:18 | disposition home or self-care (01) ==
LOC: ER 02:19
DX: R07.9 Chest pain, unspecified (principal); M25.512 Pain in left shoulder; J43.9 Emphysema, unspecified; M54.5 Low back pain; F17.200 Nicotine dependence, unspecified, uncomplicated; Z91.040 Latex allergy status; Z88.6 Allergy status to analgesic agent; Z88.2 Allergy status to sulfonamides
CPT/HCPCS: 93005; 36591; 94640; 99284; 36415; 82553; 82550; 85025; 80053; 84484; 71045; 71275; 93010; J3490; J7512; J7620

== ENCOUNTER 2018-03-03 10:36 | Emergency (ER) | payer MEDICAID ==
[2018-03-03] MEDS ORDERED: ASPIRIN 81 MG TABLET, CHEWABLE PO ONE (11:08)
--- NOTE | 2018-03-03 11:10 | ER Document Report ---
ED Medical Screen (RME) - General Chief Complaint: Chest Pain Stated Complaint: CHEST PAIN Time Seen by Provider: 03/03/18 11:02 Mode of Arrival: Ambulatory Information source: Patient Notes: 52-year-old female with a history of metastatic breast cancer presents the emergency department complaints of chest pain. Patient states that she was sitting watching the news at 815 when she began having a sharp and stabbing sensation in the left chest. She denies any radiation of the pain. She denies any alleviating or exacerbating factors. Patient states that she took aspirin and Motrin this morning for the pain. The pain is been constant for the last 3 hours. Patient denies a history of hypertension, hyperlipidemia, coronary artery disease, diabetes, family history of urinary artery disease. Patient states that she does smoke. Patient states that she has been unable to take her chemotherapy since January secondary to thrombocytopenia. Dr. Sylvester is her oncologist and he is monitoring the platelets. I have greeted and performed a rapid initial assessment of this patient. A comprehensive ED assessment and evaluation of the patient, analysis of test results and completion of the medical decision making process will be conducted by additional ED providers. PHYSICAL EXAMINATION: GENERAL: ill-appearing. HEAD: Atraumatic, normocephalic. EYES: Pupils equal round extraocular movements intact, conjunctiva are normal. ENT: Nares patent NECK: Normal range of motion LUNGS: No respiratory distress Musculoskeletal: Normal range of motion. No chest wall tenderness to palpation NEUROLOGICAL: Normal speech. PSYCH: Normal mood, normal affect. SKIN: Warm, Dry, normal turgor, no rashes or lesions noted. TRAVEL OUTSIDE OF THE [place] IN LAST 30 DAYS: No - Related Data Allergies/Adverse Reactions: latex Allergy (Severe, Verified 02/18/18 18:27) blisters,rash morphine [Morphine] Allergy (Severe, Verified 02/18/18 18:27) short of breath Sulfa (Sulfonamide Antibiotics) Allergy (Intermediate, Verified 02/18/18 18:27) rash Plastic tape Adverse Reaction (Uncoded 02/18/18 18:27) Blisters Past Medical History - Social History Chew tobacco use (# tins/day): No Frequency of alcohol use: None Drug Abuse: None - Past Medical History Cardiac Medical History: Denies: Hx Coronary Artery Disease, Hx Heart Attack, Hx Hypertension Pulmonary Medical History: Reports: Hx Asthma, Hx COPD - emphysema, Hx Pneumonia Denies: Hx Bronchitis Neurological Medical History: Denies: Hx Cerebrovascular Accident, Hx Seizures Renal/ Medical History: Denies: Hx Peritoneal Dialysis Malignancy Medical History: Reports: Hx Breast Cancer - Stage IV, mets to L5 and R & L posterior parietal skull. Musculoskeltal Medical History: Reports Hx Arthritis - generalized, Reports Hx Musculoskeletal Deformity, Reports Hx Musculoskeletal Trauma Psychiatric Medical History: Reports: Hx Anxiety Traumatic Medical History: Reports: Hx Fractures Past Surgical History: Reports: Hx Breast Surgery - Right lumpectomy x2 w/ axillary lymph node diseection., Hx Cholecystectomy, Hx Orthopedic Surgery - Left patellar reconstruction, Hx Tonsillectomy, Hx Tubal Ligation. Denies: Hx Hysterectomy - Immunizations Immunizations up to date: Yes Hx Diphtheria, Pertussis, Tetanus Vaccination: Yes Physical Exam - Vital signs Vitals: Temp Pulse Resp BP Pulse Ox 98.1 F 106 H 22 H 108/58 L 97 03/03/18 10:53 03/03/18 10:53 03/03/18 10:53 03/03/18 10:53 03/03/18 10:53 Course - Vital Signs Vital signs: Temp Pulse Resp BP Pulse Ox 98.1 F 106 H 22 H 108/58 L 97 03/03/18 10:53 03/03/18 10:53 03/03/18 10:53 03/03/18 10:53 03/03/18 10:53 Doctor's Discharge - Discharge Referrals: CRUZ COOK MD [Primary Care Provider] - Follow up as needed
[2018-03-03] MEDS ORDERED: NORMAL SALINE 1000 ML 1,000 ML IV ONE (11:50)
--- NOTE | 2018-03-03 12:03 | ER Document Report ---
ED General - General Chief Complaint: Chest Pain Stated Complaint: CHEST PAIN Time Seen by Provider: 03/03/18 11:02 Mode of Arrival: Ambulatory Notes: 52-year-old female with a history of metastatic breast cancer presents the emergency department complaints of chest pain. Patient states that she was sitting watching the news at 815 when she began having a sharp and stabbing sensation in the left chest. She denies any radiation of the pain. She denies any alleviating or exacerbating factors. Patient states that she took aspirin and Motrin this morning for the pain. The pain is been constant for the last 3 hours. \ The patient stated she had double pneumonia in the past. Since her platelets have dropped they have been unable to do chemo her last chemo was in January. TRAVEL OUTSIDE OF THE [place] IN LAST 30 DAYS: No - Related Data Allergies/Adverse Reactions: latex Allergy (Severe, Verified 02/18/18 18:27) blisters,rash morphine [Morphine] Allergy (Severe, Verified 02/18/18 18:27) short of breath Sulfa (Sulfonamide Antibiotics) Allergy (Intermediate, Verified 02/18/18 18:27) rash Plastic tape Adverse Reaction (Uncoded 02/18/18 18:27) Blisters Past Medical History - General Information source: Patient - Social History Smoking Status: Current Every Day Smoker Chew tobacco use (# tins/day): No Frequency of alcohol use: None Drug Abuse: None Family History: Reviewed & Not Pertinent Patient has suicidal ideation: No Patient has homicidal ideation: No - Past Medical History Cardiac Medical History: Denies: Hx Coronary Artery Disease, Hx Heart Attack, Hx Hypertension Pulmonary Medical History: Reports: Hx Asthma, Hx COPD - emphysema, Hx Pneumonia Denies: Hx Bronchitis Neurological Medical History: Denies: Hx Cerebrovascular Accident, Hx Seizures Renal/ Medical History: Denies: Hx Peritoneal Dialysis Malignancy Medical History: Reports: Hx Breast Cancer - Stage IV, mets to L5 and R & L posterior parietal skull. Musculoskeletal Medical History: Reports Hx Arthritis - generalized, Reports Hx Musculoskeletal Deformity, Reports Hx Musculoskeletal Trauma Psychiatric Medical History: Reports: Hx Anxiety Traumatic Medical History: Reports: Hx Fractures Past Surgical History: Reports: Hx Breast Surgery - Right lumpectomy x2 w/ axillary lymph node diseection., Hx Cholecystectomy, Hx Orthopedic Surgery - Left patellar reconstruction, Hx Tonsillectomy, Hx Tubal Ligation. Denies: Hx Hysterectomy - Immunizations Immunizations up to date: Yes Hx Diphtheria, Pertussis, Tetanus Vaccination: Yes Hx Pneumococcal Vaccination: 01/26/15 Review of Systems - Review of Systems Constitutional: denies: Chills, Fever EENT: denies: Blurred vision, Double vision Cardiovascular: Chest pain. denies: Edema Respiratory: Cough, Hurts to breathe, Short of breath. denies: Sputum Gastrointestinal: denies: Nausea, Vomiting Genitourinary: denies: Dysuria, Hematuria Neurological/Psychological: denies: Headaches -: Yes All other systems reviewed and negative Physical Exam - Vital signs Vitals: Temp Pulse Resp BP Pulse Ox 98.1 F 106 H 22 H 108/58 L 97 03/03/18 10:53 03/03/18 10:53 03/03/18 10:53 03/03/18 10:53 03/03/18 10:53 - Notes Notes: GENERAL_APPEARANCE: well_nourished, alert, cooperative, appears chronically ill VITALS: reviewed, see vital signs table. HEAD: no_swelling\tenderness on the head. EYES: PERRL, EOMI, conjunctiva_clear. NOSE: no_nasal_discharge. MOUTH: Dry mucous membranes THROAT: no_throat_inflammation, no_airway_obstruction. no_lymphadenopathy NECK: supple, no_neck_tenderness, (-)thyromegaly. BACK: no_back_tenderness. CHEST_WALL: no_chest_tenderness. Port left chest LUNGS: no_wheezing, no_rales, no_rhonchi, (-)accessory muscle use, good air exchange bilateral. HEART: normal_rate, normal_rhythm, normal_S1, normal_S2, (-)S3, (-)S4, no_ murmur, no_rub. ABDOMEN: normal_BS, soft, no_abd_tenderness, (-)guarding, (-)rebound, no_ organomegaly, no_abd_masses. EXTREMITIES: good pulses in all_extremities, no_swelling\tenderness in the extremities, no_edema. SKIN: warm, dry, good_color, chronic skin changes lower extremities. MENTAL_STATUS: speech_clear, oriented_X_3, normal_affect, responds_ appropriately to questions. Course - Re-evaluation Re-evalutation: 03/03/18 12:00 51-year-old female with a history of metastatic cancer comes in complaining of chest pain. Chest pain is sharp and has some pleuritic component to it. Will do a broad workup and try to rule her out for PE. 03/03/18 15:18 The patient refused CTA of the chest and signing out AMA I spoke with the patient her CBC is largely unchanged. She had a CBC on the which showed her chronic anemia at 8.4 and platelets that time were 33 her hemoglobin is largely unchanged today and platelets are 29. I spoke with the patient that she is not bleeding anywhere. Her anemia is chronic. Usually we will transfuse below 8 if need be. The patient wants a transfusion of platelets. I explained her that she is not bleeding she is convinced that the platelets will make her heart feel better. I stated that the pain is mainly pleuritic working to do a CT of the chest to rule out PE since she does have a cancer history. She has refused this. I sat and explained to her the serious morbidity mortality associated with pulmonary embolism. Also I would like to have admitted the patient for serial enzymes and rule out ACS. I spoke with the patient at length. She stated that she is going to sign out AMA and go home if she does not get a transfusion of platelets. I spoke with the patient about the serious risk morbidity and the associated with signing out. 03/03/18 15:23 I spoke with the patient about the importance of following up with her family doctor because since she has had a pneumonia her platelets have been trending down. This is not a new thing. If she has any bleeding whatsoever she is to return to the ER immediately. Again I expressed my concern to her that I wish she could stay in the hospital and continue getting worked up. - Vital Signs Vital signs: Temp Pulse Resp BP Pulse Ox 98.1 F 106 H 26 H 126/77 H 98 03/03/18 10:53 03/03/18 10:53 03/03/18 14:04 03/03/18 14:03 03/03/18 14:04 - Laboratory Result Diagrams: 03/03/18 12:56 03/03/18 12:56 Laboratory results interpreted by me: 03/03/18 03/03/18 12:56 12:56 RBC 2.27 L Hgb 8.2 L Hct 24.0 L MCV 106 H MCH 36.2 H RDW 20.9 H Plt Count 29 L* Band Neutrophils % 8 H Metamyelocytes % 3 H Carbon Dioxide 33 H Anion Gap 3 L BUN 25 H Est GFR ( Amer) 59 L Est GFR (Non-Af Amer) 49 L Glucose 72 L AST 79 H Alkaline Phosphatase 136 H Total Protein 5.4 L Albumin 2.5 L - EKG Interpretation by Me EKG shows normal: Sinus rhythm Rate: Normal, Tachycardia Rhythm: NSR When compared to previous EKG there are: Previous EKG unavailable Discharge - Discharge Clinical Impression: Thrombocytopenia, Chest pain Condition: Good Disposition: AGAINST MEDICAL ADVICE Referrals: CRUZ COOK MD [Primary Care Provider] - Follow up as needed
--- NOTE | 2018-03-03 12:20 | RADIOLOGY REPORT (SQ) ---
EXAM DESCRIPTION: CHEST SINGLE VIEW COMPLETED DATE/TIME: 03/03/2018 11:51 am REASON FOR STUDY: chest pain COMPARISON: Chest films 01/26/2018, 02/05/2018, 02/16/2018, 02/25/2018 CT angio chest 02/25/2018 EXAM PARAMETERS: NUMBER OF VIEWS: One view. TECHNIQUE: Single frontal radiographic view of the chest acquired. RADIATION DOSE: NA LIMITATIONS: None. FINDINGS: LUNGS AND PLEURA: Hyperinflation from obstructive disease. No acute infiltrates. No pleu ral effusion or pneumothorax. MEDIASTINUM AND HILAR STRUCTURES: No masses. Contour normal. HEART AND VASCULAR STRUCTURES: Heart normal in size. Normal vasculature. BONES: Diffuse sclerotic bony metastatic disease from breast cancer HARDWARE: Left-sided permanent central line tip superior vena cava OTHER: No other significant finding. IMPRESSION: No acute findings. Diffuse stable bony metastatic disease from known breast cancer TECHNICAL DOCUMENTATION: JOB ID: [id number] All Rights Reserved Reading location - IP/workstation name: [email or web address]
--- NOTE | 2018-03-03 13:02 | EKG REPORT ---
SEVERITY:- BORDERLINE ECG - SINUS TACHYCARDIA BORDERLINE INFERIOR Q WAVES : Confirmed by: Seamus Rodriguez MD 03-Mar-2018 13:00:41
[2018-03-03 13:30] LABS: HEMOGLOBIN 8.2 g/dL (12.0-15.5); MEAN CORPUSCULAR HEMOGLOBIN 36.2 pg (27.0-33.4); MEAN CORPUSCULAR HGB CONC 34.2 g/dL (32.0-36.0); MEAN CORPUSCULAR VOLUME 106 fl (80-97); RED BLOOD COUNT 2.27 10^6/uL (3.72-5.28); RED CELL DISTRIBUTION WIDTH 20.9 % (11.5-14.0)
[2018-03-03 13:44] LABS: ALANINE AMINOTRANSFERASE 51 U/L (9-52); ALBUMIN 2.5 g/dL (3.5-5.0); ALKALINE PHOSPHATASE 136 U/L (38-126); ASPARTATE AMINO TRANSFERASE 79 U/L (14-36); BILIRUBIN,DIRECT 0.4 mg/dL (0.0-0.4); BILIRUBIN,TOTAL 0.7 mg/dL (0.2-1.3); BLOOD UREA NITROGEN 25 mg/dL (7-20); CALCIUM 8.6 mg/dL (8.4-10.2); CARBON DIOXIDE 33 mmol/L (22-30); CHLORIDE 102 mmol/L (98-107); CREATINE KINASE 39 U/L (30-135); GLUCOSE 72 mg/dL (75-110); POTASSIUM 4.3 mmol/L (3.6-5.0); TOTAL PROTEIN 5.4 g/dL (6.3-8.2)
[2018-03-03 13:50] LABS: ANION GAP 3 (5-19)
[2018-03-03 13:54] LABS: PLATELET COUNT 29 10^3/uL (150-450)
[2018-03-03 13:57] LABS: CREATINE KINASE MB 1.08 ng/mL (<4.55)
[2018-03-03 13:59] LABS: TROPONIN I < 0.012 ng/mL
[2018-03-03 14:20] LABS: ABSOLUTE LYMPHOCYTES# (MANUAL) 0.9 10^3/uL (0.5-4.7); ABSOLUTE MONOCYTES # (MANUAL) 0.2 10^3/uL (0.1-1.4); ABSOLUTE NEUTROPHILS# (MANUAL) 2.8 10^3/uL (1.7-8.2); BAND NEUTROPHILS % (MANUAL) 8 % (3-5); BASOPHILS % (MANUAL) 2 % (0-2); EOSINOPHILS % (MANUAL) 0 % (0-6); LYMPHOCYTES % (MANUAL) 22 % (13-45); MONOCYTES % (MANUAL) 6 % (3-13); SEGMENTED NEUTROPHILS % (MAN) 58 % (42-78); TOTAL CELLS COUNTED 100
[2018-03-03 14:21] LABS: ANISOCYTOSIS 2+; HYPOCHROMASIA SLIGHT; METAMYELOCYTES % (MANUAL) 3 % (0); NUCLEATED RED BLOOD CELLS 11 /100 WBC (0); PLATELET COMMENT DECREASED; POLYCHROMASIA 1+; TOXIC VACUOLATION PRESENT
--- NOTE | 2018-03-03 16:02 | ER Document Report ---
Doctor's Note Notes: 03/03/18 15:[address] Fuentes and he is aware of the patient's lab values and will try to follow the patient about patient
[2018-03-03 16:19] VITALS: BP 110/64
[2018-03-04 10:14] LABS: PATH REVIEW PATHOLOGIST REVIEWED
== END 2018-03-03 16:30 | disposition left against medical advice (07) ==
LOC: ER 10:36
DX: R07.81 Pleurodynia (principal); R07.1 Chest pain on breathing; D69.6 Thrombocytopenia, unspecified; D64.9 Anemia, unspecified; J43.9 Emphysema, unspecified; R00.0 Tachycardia, unspecified; C50.919 Malignant neoplasm of unspecified site of unspecified female breast; C79.51 Secondary malignant neoplasm of bone; R05 Cough; R06.02 Shortness of breath; F17.200 Nicotine dependence, unspecified, uncomplicated; Z87.01 Personal history of pneumonia (recurrent); Z91.040 Latex allergy status; Z88.5 Allergy status to narcotic agent; Z88.2 Allergy status to sulfonamides; Z53.29 Procedure and treatment not carried out because of patient's decision for other reasons
CPT/HCPCS: 93005; 36591; 99285; 96360; 86900; 86901; 36415; 82553; 86850; 82550; 85025; 80053; 84484; 71045; 93010; J7030

== ENCOUNTER 2018-03-30 00:27 | Emergency (ER) | payer MEDICAID ==
[2018-03-30] MEDS ORDERED: NORMAL SALINE 1000 ML 1,000 ML IV ONE (01:19)
[2018-03-30] MEDS: HYDROMORPHONE HCL INJ/PF 2 MG/ML AMPULE IV PRN ×2 (02:36→02:45)
--- NOTE | 2018-03-30 02:39 | ER Document Report ---
ED General - General Chief Complaint: Weakness Stated Complaint: FEELS DEHYDRATED Time Seen by Provider: 03/30/18 01:16 Notes: Patient is a 52-year-old female with a past medical history of metastatic, incurable breast cancer, has been repeatedly encouraged to go on hospice care who presents with complaints of muscle spasms and feeling dehydrated. Patient states that the symptoms have been ongoing for the past 3-4 hours. Nothing improves or worsens her symptoms. She states this feels the same as when she has had dehydration in the past. The patient has not contacted her general doctor regarding this concern. She denies any shortness of breath, fever, cough , abdominal pain, vomiting, headache or neck pain. The pain is described as a spasming, aching, diffuse body pain worse in the bilateral hands. TRAVEL OUTSIDE OF THE [place] IN LAST 30 DAYS: No - Related Data Allergies/Adverse Reactions: latex Allergy (Severe, Verified 02/18/18 18:27) blisters,rash morphine [Morphine] Allergy (Severe, Verified 02/18/18 18:27) short of breath Sulfa (Sulfonamide Antibiotics) Allergy (Intermediate, Verified 02/18/18 18:27) rash Plastic tape Adverse Reaction (Uncoded 02/18/18 18:27) Blisters Past Medical History - General Information source: Patient - Social History Smoking Status: Current Every Day Smoker Frequency of alcohol use: None Drug Abuse: None Lives with: Family Family History: Reviewed & Not Pertinent - Past Medical History Cardiac Medical History: Reports: Hx Congestive Heart Failure, Hx Heart Attack Denies: Hx Coronary Artery Disease, Hx Hypertension Pulmonary Medical History: Reports: Hx Asthma, Hx COPD, Hx Pneumonia Denies: Hx Bronchitis Neurological Medical History: Denies: Hx Cerebrovascular Accident, Hx Seizures Renal/ Medical History: Denies: Hx Peritoneal Dialysis Malignancy Medical History: Reports: Hx Breast Cancer - Stage IV, mets to L5 and R & L posterior parietal skull. GI Medical History: Reports: Hx Cirrhosis, Hx Gastroesophageal Reflux Disease, Hx Ulcer Musculoskeletal Medical History: Reports Hx Arthritis - generalized, Reports Hx Musculoskeletal Deformity, Reports Hx Musculoskeletal Trauma Psychiatric Medical History: Reports: Hx Anxiety Traumatic Medical History: Reports: Hx Fractures Past Surgical History: Reports: Hx Breast Surgery - Right lumpectomy x2 w/ axillary lymph node diseection., Hx Cholecystectomy, Hx Orthopedic Surgery - Left patellar reconstruction, Hx Tonsillectomy, Hx Tubal Ligation. Denies: Hx Hysterectomy - Immunizations Immunizations up to date: Yes Hx Diphtheria, Pertussis, Tetanus Vaccination: No Hx Pneumococcal Vaccination: 01/26/15 Review of Systems - Review of Systems Notes: Constitutional: Negative for fever. HENT: Negative for sore throat. Eyes: Negative for visual changes. Cardiovascular: Negative for chest pain. Positive for lightheadedness Respiratory: Negative for shortness of breath. Gastrointestinal: Negative for abdominal pain, vomiting or diarrhea. Genitourinary: Negative for dysuria. Musculoskeletal: Positive for diffuse positive for lightheadedness Skin: Negative for rash. Neurological: Negative for headaches, weakness or numbness. 10 point ROS negative except as marked above and in HPI. Physical Exam - Vital signs Vitals: Temp Pulse Resp BP Pulse Ox 98.3 F 123 H 32 H 103/59 L 95 03/30/18 01:08 03/30/18 01:08 03/30/18 01:08 03/30/18 01:08 03/30/18 01:08 Interpretation: Tachycardic Notes: PHYSICAL EXAMINATION: GENERAL: Appears frail, chronically ill but in no acute distress HEAD: Atraumatic, normocephalic. EYES: Pupils equal round and reactive to light, extraocular movements intact, sclera anicteric, conjunctiva are normal. ENT: nares patent, oropharynx clear without exudates. Moderately dry mucous membranes. NECK: Normal range of motion, supple without lymphadenopathy LUNGS: Breath sounds clear to auscultation bilaterally and equal. No wheezes rales or rhonchi. HEART: Regular tachycardia without murmurs ABDOMEN: Soft, nontender, normoactive bowel sounds. No guarding, no rebound. No masses appreciated. EXTREMITIES: Normal range of motion, no pitting or edema. No cyanosis. NEUROLOGICAL: No focal neurological deficits. Moves all extremities spontaneously and on command. PSYCH: Normal mood, normal affect. SKIN: Warm, Dry, normal turgor, no rashes or lesions noted. Course - Re-evaluation Re-evalutation: 03/30/18 02:38 Patient with a known history of terminal metastatic cancer who is presenting with diffuse muscle spasms and feelings of dehydration. Patient is noted to be tachycardic on exam but is otherwise similar to when I have seen her multiple times in the past. Will obtain basic laboratories, IV fluids, pain control. Planning for primarily some somatic management given the patient's terminal condition and the patient does agree with this assessment. Low clinical suspicion for any acute pathology given the patient's clinical concerns. 03/30/18 03:48 Patient's laboratories effectively unchanged from baseline. Tachycardia has resolved. Patient states she feels improved. At this time will discharge with return precautions and follow-up recommendations. Verbal discharge instructions given a the bedside and opportunity for questions given. Medication warnings reviewed. Patient is in agreement with this plan and has verbalized understanding of return precautions and the need for primary care follow-up in the next 24-72 hours. - Vital Signs Vital signs: Temp Pulse Resp BP Pulse Ox 98.3 F 123 H 32 H 103/59 L 95 03/30/18 01:08 03/30/18 01:08 03/30/18 01:08 03/30/18 01:08 03/30/18 01:08 - Laboratory Result Diagrams: 03/30/18 02:15 03/30/18 02:15 Laboratory results interpreted by me: 03/30/18 03/30/18 02:15 02:15 RBC 2.18 L Hgb 7.5 L Hct 21.8 L MCV 100 H MCH 34.5 H RDW 23.0 H Plt Count 23 L* Sodium 135.3 L Chloride 94 L Carbon Dioxide 32 H Direct Bilirubin 0.6 H AST 114 H Total Protein 5.9 L Albumin 2.9 L Discharge - Discharge Clinical Impression: Dehydration, Muscle spasm, Body aches, Thrombocytopenia Condition: Stable Disposition: HOME, SELF-CARE Additional Instructions: Your labs are effectively unchanged from your previous visit. Your current platelet count is 23. Please follow-up with your hematology oncology doctor within the next 24-48 hours. Please return to the emergency room immediately if you experience any concerning symptoms including high fevers, severe headache , chest pain, difficulty breathing, abdominal pain, slurred speech, numbness or weakness in your arms or legs, or any other symptom that concerns you. Referrals: MORAIMA JARQUIN NP [Primary Care Provider] - Follow up as needed
[2018-03-30 02:49] LABS: HEMATOCRIT 21.8 % (36.0-47.0); MEAN CORPUSCULAR HEMOGLOBIN 34.5 pg (27.0-33.4); MEAN CORPUSCULAR HGB CONC 34.5 g/dL (32.0-36.0); MEAN CORPUSCULAR VOLUME 100 fl (80-97); RED BLOOD COUNT 2.18 10^6/uL (3.72-5.28)
[2018-03-30 03:18] LABS: ABSOLUTE LYMPHOCYTES# (MANUAL) 0.9 10^3/uL (0.5-4.7); ABSOLUTE MONOCYTES # (MANUAL) 0.2 10^3/uL (0.1-1.4); ABSOLUTE NEUTROPHILS# (MANUAL) 3.2 10^3/uL (1.7-8.2); BASOPHILS % (MANUAL) 1 % (0-2); EOSINOPHILS % (MANUAL) 1 % (0-6); LYMPHOCYTES % (MANUAL) 21 % (13-45); MONOCYTES % (MANUAL) 4 % (3-13); NUCLEATED RED BLOOD CELLS 7 /100 WBC (0); SEGMENTED NEUTROPHILS % (MAN) 73 % (42-78); TOTAL CELLS COUNTED 100
[2018-03-30 03:25] LABS: ANISOCYTOSIS 3+; OVALOCYTES 2+; POIKILOCYTOSIS 3+; POLYCHROMASIA 1+; STOMATOCYTES 3+; TEAR DROP CELLS 1+; TOXIC GRANULATION SLIGHT
[2018-03-30 03:26] LABS: PLATELET COMMENT DECREASED
[2018-03-30 03:33] LABS: HEMOGLOBIN 7.5 g/dL (12.0-15.5); PLATELET COUNT 23 10^3/uL (150-450)
[2018-03-30 03:36] LABS: ALANINE AMINOTRANSFERASE 52 U/L (9-52); ALBUMIN 2.9 g/dL (3.5-5.0); ALKALINE PHOSPHATASE 117 U/L (38-126); ANION GAP 9 (5-19); ASPARTATE AMINO TRANSFERASE 114 U/L (14-36); BILIRUBIN,DIRECT 0.6 mg/dL (0.0-0.4); BILIRUBIN,TOTAL 1.1 mg/dL (0.2-1.3); BLOOD UREA NITROGEN 18 mg/dL (7-20); CALCIUM 8.4 mg/dL (8.4-10.2); CARBON DIOXIDE 32 mmol/L (22-30); CHLORIDE 94 mmol/L (98-107); GLUCOSE 106 mg/dL (75-110); SODIUM 135.3 mmol/L (137-145); TOTAL PROTEIN 5.9 g/dL (6.3-8.2)
[2018-03-30 04:35] VITALS: BP 110/68
== END 2018-03-30 04:42 | disposition home or self-care (01) ==
LOC: ER 00:27
DX: E86.0 Dehydration (principal); R25.2 Cramp and spasm; M79.10 Myalgia, unspecified site; D69.6 Thrombocytopenia, unspecified; R53.1 Weakness; C50.919 Malignant neoplasm of unspecified site of unspecified female breast; C79.9 Secondary malignant neoplasm of unspecified site; Z51.5 Encounter for palliative care; Z91.040 Latex allergy status; Z88.6 Allergy status to analgesic agent; Z88.2 Allergy status to sulfonamides
CPT/HCPCS: 36591; 99285; 96361; 96374; 36415; 85025; 80053; J1170; J7030

== ENCOUNTER 2018-04-19 19:47 | Emergency (ER) | payer MEDICAID ==
[2018-04-19] MEDS ORDERED: IPRATROPIUM/ALBUTEROL 0.5-2.5 MG/3 ML AMPUL NEB ONE (20:17)
--- NOTE | 2018-04-19 20:24 | ER Document Report ---
ED Medical Screen (RME) - General Chief Complaint: Pain Stated Complaint: RIGHT CALF PAIN,LEFT RIBS PAIN Time Seen by Provider: 04/19/18 20:10 Notes: Patient is a 52-year-old female with COPD that presents to the emergency department for chief complaint of shortness of breath, difficulty breathing, worse than her baseline, as well as leg swelling on the right, worse than the left. Patient is concerned she might have a blood clot. She recently was diagnosed with pneumonia, and started on azithromycin, and doxycycline. ROS: Other than noted above, the 12 point review of systems was reviewed with the patient and were negative, all pertinent findings are included in the HPI. PHYSICAL EXAMINATION: Vital signs reviewed. GENERAL: Chronically ill-appearing female HEAD: Atraumatic, normocephalic. EYES: Pupils equal round extraocular movements intact, conjunctiva are normal. ENT: Nares patent NECK: Normal range of motion CV: Heart rate tachycardic, regular rhythm LUNGS: Increased work of breathing, severely diminished lung sounds bilaterally , expiratory wheezing and rhonchi noted. Musculoskeletal: Normal range of motion NEUROLOGICAL: Normal speech PSYCH: Normal mood, normal affect. MDM: Patient seen and examined for rapid initial assessment. Vital signs reviewed. A comprehensive ED assessment and evaluation of the patient, analysis of test results and completion of the medical decision making process will be conducted by additional ED providers. *Note is created using voice recognition software and may contain spelling, syntax or grammatical errors. TRAVEL OUTSIDE OF THE [place] IN LAST 30 DAYS: No - Related Data Allergies/Adverse Reactions: latex Allergy (Severe, Verified 02/18/18 18:27) blisters,rash morphine [Morphine] Allergy (Severe, Verified 02/18/18 18:27) short of breath Sulfa (Sulfonamide Antibiotics) Allergy (Intermediate, Verified 02/18/18 18:27) rash adhesive Allergy (Verified 04/19/18 20:06) Plastic tape Adverse Reaction (Uncoded 02/18/18 18:27) Blisters Past Medical History - Past Medical History Cardiac Medical History: Reports: Hx Congestive Heart Failure, Hx Heart Attack Denies: Hx Coronary Artery Disease, Hx Hypertension Pulmonary Medical History: Reports: Hx Asthma, Hx COPD, Hx Pneumonia Denies: Hx Bronchitis Neurological Medical History: Denies: Hx Cerebrovascular Accident, Hx Seizures Renal/ Medical History: Denies: Hx Peritoneal Dialysis Malignancy Medical History: Reports: Hx Breast Cancer - Stage IV, mets to L5 and R & L posterior parietal skull. GI Medical History: Reports: Hx Cirrhosis, Hx Gastroesophageal Reflux Disease, Hx Ulcer Musculoskeltal Medical History: Reports Hx Arthritis - generalized, Reports Hx Musculoskeletal Deformity, Reports Hx Musculoskeletal Trauma Psychiatric Medical History: Reports: Hx Anxiety Traumatic Medical History: Reports: Hx Fractures Past Surgical History: Reports: Hx Breast Surgery - Right lumpectomy x2 w/ axillary lymph node diseection., Hx Cholecystectomy, Hx Orthopedic Surgery - Left patellar reconstruction, Hx Tonsillectomy, Hx Tubal Ligation. Denies: Hx Hysterectomy - Immunizations Immunizations up to date: Yes Hx Diphtheria, Pertussis, Tetanus Vaccination: No History of Influenza Vaccine for 02/2017 - 07/2017 Season: Yes Influenza Administration Date for 02/2017 - 07/2017 Season: 02/16/18 Physical Exam - Vital signs Vitals: Temp Pulse Resp BP Pulse Ox 99.9 F 123 H 28 H 122/68 90 L 04/19/18 19:59 04/19/18 19:59 04/19/18 19:59 04/19/18 19:59 04/19/18 19:59 Course - Vital Signs Vital signs: Temp Pulse Resp BP Pulse Ox 99.9 F 123 H 28 H 122/68 90 L 04/19/18 19:59 04/19/18 19:59 04/19/18 19:59 04/19/18 19:59 04/19/18 19:59 Doctor's Discharge - Discharge Referrals: HINA LAW MD [Primary Care Provider] - Follow up as needed
[2018-04-19 21:08] LABS: HEMATOCRIT 28.6 % (36.0-47.0); HEMOGLOBIN 9.6 g/dL (12.0-15.5); MEAN CORPUSCULAR HEMOGLOBIN 34.1 pg (27.0-33.4); MEAN CORPUSCULAR HGB CONC 33.5 g/dL (32.0-36.0); MEAN CORPUSCULAR VOLUME 102 fl (80-97); RED BLOOD COUNT 2.81 10^6/uL (3.72-5.28); RED CELL DISTRIBUTION WIDTH 22.9 % (11.5-14.0)
[2018-04-19 21:29] LABS: ABSOLUTE LYMPHOCYTES# (MANUAL) 1.9 10^3/uL (0.5-4.7); ABSOLUTE MONOCYTES # (MANUAL) 0.2 10^3/uL (0.1-1.4); ABSOLUTE NEUTROPHILS# (MANUAL) 5.8 10^3/uL (1.7-8.2); BASOPHILS % (MANUAL) 1 % (0-2); EOSINOPHILS % (MANUAL) 2 % (0-6); LYMPHOCYTES % (MANUAL) 24 % (13-45); MONOCYTES % (MANUAL) 2 % (3-13); NUCLEATED RED BLOOD CELLS 39 /100 WBC (0); SEGMENTED NEUTROPHILS % (MAN) 71 % (42-78); TOTAL CELLS COUNTED 100
[2018-04-19 21:32] LABS: ALANINE AMINOTRANSFERASE 62 U/L (9-52); ALBUMIN 2.7 g/dL (3.5-5.0); ALKALINE PHOSPHATASE 199 U/L (38-126); ASPARTATE AMINO TRANSFERASE 147 U/L (14-36); BILIRUBIN,DIRECT 0.5 mg/dL (0.0-0.4); BILIRUBIN,TOTAL 0.7 mg/dL (0.2-1.3); BLOOD UREA NITROGEN 14 mg/dL (7-20); CALCIUM 8.5 mg/dL (8.4-10.2); GLUCOSE 98 mg/dL (75-110); POTASSIUM 4.7 mmol/L (3.6-5.0); TOTAL PROTEIN 5.6 g/dL (6.3-8.2)
[2018-04-19 21:34] LABS: ACANTHOCYTES SLIGHT; ANISOCYTOSIS 3+; OVALOCYTES 2+; PLATELET COMMENT DECREASED; POIKILOCYTOSIS 2+; POLYCHROMASIA 1+; SCHISTOCYTES SLIGHT; TEAR DROP CELLS 1+; TOXIC GRANULATION SLIGHT
[2018-04-19 21:37] LABS: CARBON DIOXIDE 35 mmol/L (22-30); CHLORIDE 100 mmol/L (98-107)
[2018-04-19 21:40] LABS: NT PRO BNP 301 pg/mL (5-900)
[2018-04-19 21:43] LABS: ANION GAP 6 (5-19); PLATELET COUNT 13 10^3/uL (150-450); TROPONIN I < 0.012 ng/mL
[2018-04-19 21:44] LABS: WHITE BLOOD COUNT 8.8 10^3/uL (4.0-10.5)
--- NOTE | 2018-04-19 22:05 | RADIOLOGY REPORT (SQ) ---
EXAM DESCRIPTION: XR CHEST 1 VIEW COMPLETED DATE/TME: 04/19/2018 20:41 CLINICAL HISTORY: 52 years, Female, cough, short of breath COMPARISON: 03/03/2018 chest x-ray NUMBER OF VIEWS: 1 TECHNIQUE: Portable chest LIMITATIONS: None. FINDINGS: The heart size is normal. [id number] catheter in place. Coarse interstitial changes bilaterally which may reflect interstitial edema or pneumonitis. Lymphangitic spread of disease is not excluded. Diffuse osseous metastasis, also seen previously. No pneumothorax. No confluent airspace opacity IMPRESSION: Coarse interstitial change bilaterally which may reflect interstitial edema or pneumonitis, with lymphangitic spread of disease not excluded. Diffuse osseous metastasis.. copyright 2010 [employer]- All Rights Reserved
--- NOTE | 2018-04-19 23:01 | RADIOLOGY REPORT (SQ) ---
EXAM DESCRIPTION: CT CHEST ANGIOGRAPHY WITHOUT THEN WITH IV CONTRAST COMPLETED DATE/TME: 04/19/2018 20:16 CLINICAL HISTORY: 52 years, Female, hypoxia, tachycardia, edematous RLE COMPARISON: 02/25/2018 CTA chest TECHNIQUE: 654 Images stored on PACS. All CT scanners at this facility use dose modulation, iterative reconstruction, and/or weight based dosing when appropriate to reduce radiation dose to as low as reasonably achievable (ALARA). [facility]: Dose Right [facility]: CareDose [facility]: Dose Right [facility]: Teradose 4D [facility]: Smart GMEX LIMITATIONS: None. FINDINGS: The visualized thyroid gland enhances normally. The mediastinal vasculature enhances normally. No intraluminal filling defect to suggest pulmonary embolus. Suboptimal opacification of distal arterial branches. Negative for thoracic aortic aneurysm or dissection. Several nonspecific nonenlarged to mildly enlarged mediastinal and hilar lymph nodes. The largest node is in the subcarinal region, measuring 1.6 x 1.4 cm. Diffuse skin thickening of the left breast with underlying heterogeneity. Correlate with mammographic and physical exam findings. Limited evaluation of the upper abdomen shows fatty infiltrative change to the liver. Splenomegaly, at 18 cm. Diffuse osseous metastasis, also present previously. No pneumothorax. Moderate to severe emphysematous changes in the upper lobes and apices. No effusion. No dominant lung nodule or mass. IMPRESSION: Negative for pulmonary embolus, thoracic aortic aneurysm, or dissection. Moderate to severe emphysematous change. Skin thickening with heterogeneity of the left breast. Correlate with physical exam/mammographic findings. Diffuse osseous metastasis, as before. Fatty infiltrative change to the liver. Splenomegaly. Nonspecific nonenlarged to mildly enlarged mediastinal and hilar lymph nodes. TECHNICAL DOCUMENTATION: Quality ID # [id number]: Final reports with documentation of one or more dose reduction techniques (e.g., Automated exposure control, adjustment of the mA and/or kV according to patient size, use of iterative reconstruction technique) copyright 2011 [employer]- All Rights Reserved
[2018-04-19] MEDS ORDERED: PREDNISONE 20 MG TABLET PO ONE (23:11)
[2018-04-19] MEDS ORDERED: BENZONATATE 100 MG CAPSULE PO ONE (23:11)
--- NOTE | 2018-04-19 23:12 | ER Document Report ---
ED General - General Chief Complaint: Pain Stated Complaint: RIGHT CALF PAIN,LEFT RIBS PAIN Time Seen by Provider: 04/19/18 20:10 Notes: Patient is a 52-year old female with a past medical history of advanced COPD, oxygen dependent, continues to smoke, metastatic breast cancer with known terminal status who presents with complaints of right leg swelling, increased shortness of breath, diffuse rib pain worse on the right and cough. The patient states that she was recently diagnosed with a right upper lobe pneumonia , started on doxycycline and azithromycin. States that she has a stabbing pain in particular when she coughs in her right lower ribs where she has no metastases. Nothing seems to improve this pain. She continues to follow with hematology. She is not currently on any chemotherapy. She states that her shortness of breath is also slightly worse than baseline. She is not currently on steroids but is using nebulizer treat at home. She has not had fever. TRAVEL OUTSIDE OF THE [place] IN LAST 30 DAYS: No - Related Data Allergies/Adverse Reactions: latex Allergy (Severe, Verified 02/18/18 18:27) blisters,rash morphine [Morphine] Allergy (Severe, Verified 02/18/18 18:27) short of breath Sulfa (Sulfonamide Antibiotics) Allergy (Intermediate, Verified 02/18/18 18:27) rash adhesive Allergy (Verified 04/19/18 20:06) Plastic tape Adverse Reaction (Uncoded 02/18/18 18:27) Blisters Past Medical History - General Information source: Patient - Social History Smoking Status: Current Every Day Smoker Chew tobacco use (# tins/day): No Frequency of alcohol use: None Drug Abuse: None Lives with: Family Family History: Reviewed & Not Pertinent Patient has suicidal ideation: No Patient has homicidal ideation: No - Past Medical History Cardiac Medical History: Reports: Hx Congestive Heart Failure, Hx Heart Attack Denies: Hx Coronary Artery Disease, Hx Hypertension Pulmonary Medical History: Reports: Hx Asthma, Hx COPD, Hx Pneumonia Denies: Hx Bronchitis Neurological Medical History: Denies: Hx Cerebrovascular Accident, Hx Seizures Renal/ Medical History: Denies: Hx Peritoneal Dialysis Malignancy Medical History: Reports: Hx Breast Cancer - Stage IV, mets to L5 and R & L posterior parietal skull. GI Medical History: Reports: Hx Cirrhosis, Hx Gastroesophageal Reflux Disease, Hx Ulcer Musculoskeletal Medical History: Reports Hx Arthritis - generalized, Reports Hx Musculoskeletal Deformity, Reports Hx Musculoskeletal Trauma Psychiatric Medical History: Reports: Hx Anxiety Traumatic Medical History: Reports: Hx Fractures Past Surgical History: Reports: Hx Breast Surgery - Right lumpectomy x2 w/ axillary lymph node diseection., Hx Cholecystectomy, Hx Orthopedic Surgery - Left patellar reconstruction, Hx Tonsillectomy, Hx Tubal Ligation. Denies: Hx Hysterectomy - Immunizations Immunizations up to date: Yes Hx Diphtheria, Pertussis, Tetanus Vaccination: No Hx Pneumococcal Vaccination: 01/26/15 Review of Systems - Review of Systems Notes: Constitutional: Negative for fever. HENT: Negative for sore throat. Eyes: Negative for visual changes. Cardiovascular: Negative for chest pain. Respiratory: Positive for shortness of breath. Gastrointestinal: Negative for abdominal pain, vomiting or diarrhea. Genitourinary: Negative for dysuria. Musculoskeletal: Positive for bilateral lower rib pain Skin: Negative for rash. Neurological: Negative for headaches, weakness or numbness. 10 point ROS negative except as marked above and in HPI. Physical Exam - Vital signs Vitals: Temp Pulse Resp BP Pulse Ox 99.9 F 123 H 28 H 122/68 90 L 04/19/18 19:59 04/19/18 19:59 04/19/18 19:59 04/19/18 19:59 04/19/18 19:59 Interpretation: Tachycardic, Tachypneic Course - Re-evaluation Re-evalutation: 04/19/18 23:14 Patient presents with multiple concerns including persistent cough, bilateral rib pain worse on the right, right leg swelling and increased shortness of breath. This patient is well-known to me, has a known history of incurable metastatic breast cancer with known metastases throughout multiple of her osseous structures in the chest and back. The patient did undergo CTA of the chest without any evidence of acute pulmonary bliss. Venous Doppler of her right lower extremities likewise negative for any acute blood clot. Labs do show ongoing severe thrombocytopenia which is not new and is unchanged from most recent assessment. Hemoglobin is likewise chronically low, consistent with normal tonight. Patient was noted to be tachycardic at time of presentation although this has improved after the patient was reconnected to her supplemental oxygen. I have again advised the patient as has her oncologist in the past that it may be time for the patient to transition towards hospice care. She does continue to resist this notion stating that she is "fine, healthy" stating that she will continue to take the antibiotics as prescribed by her primary care doctor. She would like to go home at this point , requests Tessalon Perles and steroids. At this time will discharge with return precautions and follow-up recommendations. Verbal discharge instructions given a the bedside and opportunity for questions given. Medication warnings reviewed. Patient is in agreement with this plan and has verbalized understanding of return precautions and the need for primary care follow-up in the next 24-72 hours. - Vital Signs Vital signs: Temp Pulse Resp BP Pulse Ox 99.2 F 114 H 22 H 119/99 H 94 04/19/18 23:33 04/19/18 23:33 04/19/18 23:33 04/19/18 23:33 04/19/18 23:33 - Laboratory Result Diagrams: 04/19/18 20:50 04/19/18 20:50 Laboratory results interpreted by me: 04/19/18 04/19/18 20:50 20:50 RBC 2.81 L Hgb 9.6 L Hct 28.6 L MCV 102 H MCH 34.1 H RDW 22.9 H Plt Count 13 L* Monocytes % (Manual) 2 L Carbon Dioxide 35 H Direct Bilirubin 0.5 H AST 147 H ALT 62 H Alkaline Phosphatase 199 H Total Protein 5.6 L Albumin 2.7 L Discharge - Discharge Clinical Impression: Persistent cough, Rib pain, Thrombocytopenia, Metastatic breast cancer, Right calf pain Condition: Good Disposition: HOME, SELF-CARE Additional Instructions: The CT scan of your chest does not show any blood clot. Your ultrasound of your leg is likewise normal. You continue to have low platelet count. Continue to take the antibiotics that have been previously prescribed. Take prednisone as prescribed. You may use Tessalon as needed for your cough. Please return if you develop worsening of your symptoms, increased difficulty breathing, vomiting, or any other symptoms that are worrisome to you. Prescriptions: Benzonatate [Tessalon Perles 100 mg Capsule] 100 mg PO Q8HP PRN #40 capsule PRN Reason: Prednisone [Deltasone 20 mg Tablet] 2 tab PO DAILY 5 Days tablet Referrals: HINA LAW MD [Primary Care Provider] - Follow up in 3-5 days
[2018-04-19 23:34] VITALS: BP 119/99
--- NOTE | 2018-04-20 04:40 | RADIOLOGY REPORT (SQ) ---
CLINICAL DATA: 52-year-old female with right lower extremity edema and calf tenderness.. TECHNICAL DATA: Grayscale and color Doppler images of the deep veins of the right lower extremity were performed. Comparisons: Prior right lower extremity venous Doppler performed on 03/13/2017.. FINDINGS: Grayscale and color Doppler images of the deep veins of the right lower extremity was performed. The grayscale images reveal normal compressibility of the deep veins. The Doppler images reveal normal flow, phasicity with respiration and normal augmentation with compression. The color flow images reveal normal saturation of flow within the deep veins of the right lower extremity. No intraluminal echoes are identified to suggest nonocclusive thrombus. The superficial veins are patent. No additional abnormalities are identified. IMPRESSION: No evidence of deep venous thrombosis in the right lower extremity.
--- NOTE | 2018-04-20 06:20 | EKG REPORT ---
SEVERITY:- ABNORMAL ECG - ECTOPIC ATRIAL TACHYCARDIA VENTRICULAR PREMATURE COMPLEX : Confirmed by: Seamus Rodriguez MD 20-Apr-2018 06:19:56
== END 2018-04-19 23:35 | disposition home or self-care (01) ==
LOC: ER 19:47
DX: D69.6 Thrombocytopenia, unspecified (principal); C50.919 Malignant neoplasm of unspecified site of unspecified female breast; C79.9 Secondary malignant neoplasm of unspecified site; M79.661 Pain in right lower leg; R07.81 Pleurodynia; J44.9 Chronic obstructive pulmonary disease, unspecified; Z88.6 Allergy status to analgesic agent; Z91.040 Latex allergy status; Z88.2 Allergy status to sulfonamides; Z99.81 Dependence on supplemental oxygen; F17.200 Nicotine dependence, unspecified, uncomplicated; I50.9 Heart failure, unspecified; I25.2 Old myocardial infarction; Z90.49 Acquired absence of other specified parts of digestive tract
CPT/HCPCS: 93005; 94640; 99284; 36415; 87040; 85025; 87077; 80053; 84484; 87186; 83605; 83880; 93971; 71045; 71275; 93010; J3490; J7512; J7620

== ENCOUNTER 2018-04-28 12:16 | Emergency (ER) | payer MEDICAID ==
[2018-04-28 13:45] LABS: HEMATOCRIT 25.3 % (36.0-47.0); HEMOGLOBIN 8.8 g/dL (12.0-15.5); MEAN CORPUSCULAR HEMOGLOBIN 35.1 pg (27.0-33.4); MEAN CORPUSCULAR HGB CONC 34.8 g/dL (32.0-36.0); MEAN CORPUSCULAR VOLUME 101 fl (80-97); RED BLOOD COUNT 2.51 10^6/uL (3.72-5.28); RED CELL DISTRIBUTION WIDTH 22.4 % (11.5-14.0)
[2018-04-28 14:06] LABS: PLATELET COUNT 6 10^3/uL (150-450)
[2018-04-28 14:13] LABS: ABSOLUTE LYMPHOCYTES# (MANUAL) 1.6 10^3/uL (0.5-4.7); ABSOLUTE MONOCYTES # (MANUAL) 0.8 10^3/uL (0.1-1.4); BAND NEUTROPHILS % (MANUAL) 17 % (3-5); BASOPHILS % (MANUAL) 1 % (0-2); EOSINOPHILS % (MANUAL) 0 % (0-6); LYMPHOCYTES % (MANUAL) 17 % (13-45); MONOCYTES % (MANUAL) 9 % (3-13); NUCLEATED RED BLOOD CELLS 34 /100 WBC (0); SEGMENTED NEUTROPHILS % (MAN) 51 % (42-78); TOTAL CELLS COUNTED 100
[2018-04-28] MEDS ORDERED: NORMAL SALINE 250 ML IV PRN ×2 (14:14)
--- NOTE | 2018-04-28 14:16 | ER Document Report ---
ED General - General Chief Complaint: Abnormal Lab Results Stated Complaint: ABNORMAL LABS Time Seen by Provider: 04/28/18 13:30 Mode of Arrival: Ambulatory Information source: Patient TRAVEL OUTSIDE OF THE [place] IN LAST 30 DAYS: No - HPI Patient complains to provider of: Low platelets Onset: Other - This is a 52-year-old female with a history of cancer as well as COPD and emphysema that presents for evaluation of low platelets from Dr. Law's office. 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 She was scheduled to undergo transfusion of platelets tomorrow in the inpatient setting but did not want to wait so presented here today. She noted some skin irritation with some slight oozing that as such was concerned about the bleeding. Denies any trauma headache chest pain or other symptoms. - Related Data Allergies/Adverse Reactions: latex Allergy (Severe, Verified 04/28/18 12:47) blisters,rash morphine [Morphine] Allergy (Severe, Verified 04/28/18 12:47) short of breath Sulfa (Sulfonamide Antibiotics) Allergy (Intermediate, Verified 04/28/18 12:47) rash adhesive Allergy (Verified 04/28/18 12:47) Plastic tape Adverse Reaction (Uncoded 04/28/18 12:47) Blisters Past Medical History - General Information source: Patient, Office - Social History Smoking Status: Former Smoker Smoking Education Provided: No Frequency of alcohol use: None Drug Abuse: None Family History: None, Reviewed & Not Pertinent - Past Medical History Cardiac Medical History: Reports: Hx Congestive Heart Failure, Hx Heart Attack Denies: Hx Coronary Artery Disease, Hx Hypertension Pulmonary Medical History: Reports: Hx Asthma, Hx COPD, Hx Pneumonia Denies: Hx Bronchitis Neurological Medical History: Denies: Hx Cerebrovascular Accident, Hx Seizures Renal/ Medical History: Denies: Hx Peritoneal Dialysis Malignancy Medical History: Reports: Hx Breast Cancer - Stage IV, mets to L5 and R & L posterior parietal skull. GI Medical History: Reports: Hx Cirrhosis, Hx Gastroesophageal Reflux Disease, Hx Ulcer Musculoskeletal Medical History: Reports Hx Arthritis - generalized, Reports Hx Musculoskeletal Deformity, Reports Hx Musculoskeletal Trauma Psychiatric Medical History: Reports: Hx Anxiety Traumatic Medical History: Reports: Hx Fractures Past Surgical History: Reports: Hx Breast Surgery - Right lumpectomy x2 w/ axillary lymph node diseection., Hx Cholecystectomy, Hx Orthopedic Surgery - Left patellar reconstruction, Hx Tonsillectomy, Hx Tubal Ligation. Denies: Hx Hysterectomy - Immunizations Immunizations up to date: Yes Hx Diphtheria, Pertussis, Tetanus Vaccination: No Hx Pneumococcal Vaccination: 01/26/15 Review of Systems - Review of Systems -: Yes All other systems reviewed and negative Physical Exam - Vital signs Vitals: Resp Pulse Ox 34 H 96 04/28/18 13:13 04/28/18 13:13 Interpretation: Tachypneic - General General appearance: Other - Chronically ill-appearing In distress: None - HEENT Head: Normocephalic, Atraumatic Eyes: Normal Conjunctiva: Normal Cornea: Normal Extraocular movements intact: No Eyelashes: Normal Pupils: PERRL - Respiratory Respiratory status: Tachypnea Chest status: Nontender Breath sounds: Wheezing Chest palpation: Normal - Cardiovascular Rhythm: Regular Heart sounds: Normal auscultation Murmur: No - Abdominal Inspection: Normal Distension: No distension Bowel sounds: Normal Tenderness: Nontender - Back Back: Normal - Extremities General upper extremity: Normal inspection, Nontender, Normal color, Normal ROM , Normal temperature General lower extremity: Normal inspection, Nontender, Normal color, Normal ROM , Normal temperature, Normal weight bearing. No: Aicha's sign - Neurological Neuro grossly intact: Yes Cognition: Normal Orientation: AAOx4 [place] Coma Scale Verbal: Oriented Franny Coma Scale Motor: Obeys Commands Speech: Normal Cranial nerves: Normal Motor strength normal: LUE, RUE, LLE, RLE - Psychological Associated symptoms: Normal affect, Normal mood Course - Re-evaluation Re-evalutation: 04/28/18 16:29 This is a 52-year-old woman with chronic thrombocytopenia presents for evaluation of low platelets. She is scheduled to undergo transfusion of platelets tomorrow in the outpatient setting but had some oozing from a nipple which prompted her to seek care in the emergency department. I spoke to Dr. Oracio potter's oncologist who states that she will see her next week for follow-up if we transfuse her today. I have contacted blood bank and ordered platelets for this patient, 2 units. Patient did undergo transfusion of 2 units of platelets, will undergo discharge thereafter as long as she is not actively bleeding. We will defer any other treatments at this time as this patient is currently at her medical baseline. She is not actively bleeding, has no obvious signs to suggest an intracranial process. Plan will be for patient undergo transfusion of platelets. Thereafter she will undergo discharge home unless she has some other acute complaints leading up there to. - Vital Signs Vital signs: Temp Pulse Resp BP Pulse Ox 27 H 112/77 96 04/28/18 16:01 04/28/18 16:01 04/28/18 16:01 - Laboratory Result Diagrams: 04/28/18 13:20 Laboratory results interpreted by me: 04/28/18 13:20 RBC 2.51 L Hgb 8.8 L Hct 25.3 L MCV 101 H MCH 35.1 H RDW 22.4 H Plt Count 6 L* Band Neutrophils % 17 H Promyelocytes % 2 H Immature Leukocytes % 1 H Discharge - Discharge Clinical Impression: Thrombocytopenia, Transfusion of platelets during current hospitalization Disposition: HOME, SELF-CARE Instructions: Thrombocytopenia ([facility]) Additional Instructions: You were seen today in the emergency department for your thrombocytopenia. You had an evaluation including blood tests, you were transfused platelets in the emergency department. I spoke to Dr. Law about your care today, she says that she will see you in her clinic this week or next week and you should call for an appointment first thing tomorrow. He do not need to come to the hospital for platelet transfusion. If you begin to have any bleeding, headache, or symptoms of worsening platelets and bruising he should return to the emergency room as it may be a more serious condition. Referrals: HINA LAW MD [Primary Care Provider] - Follow up as needed
[2018-04-28 14:22] LABS: ANISOCYTOSIS 2+; IMMATURE MONONUCLEAR% (MANUAL) 1 % (0); PLATELET COMMENT DECREASED; POLYCHROMASIA 2+; PROMYELOCYTES % (MANUAL) 2 % (0); TOXIC GRANULATION SLIGHT
[2018-04-28 14:23] LABS: WHITE BLOOD COUNT 9.8 10^3/uL (4.0-10.5)
[2018-04-28 20:53] VITALS: BP 117/71
[2018-04-29 11:19] LABS: PATH REVIEW PATHOLOGIST REVIEWED
== END 2018-04-28 20:54 | disposition home or self-care (01) ==
LOC: ER 12:16
DX: D69.6 Thrombocytopenia, unspecified (principal); J43.9 Emphysema, unspecified; Z92.21 Personal history of antineoplastic chemotherapy; N64.59 Other signs and symptoms in breast; Z91.040 Latex allergy status; Z88.5 Allergy status to narcotic agent; Z88.2 Allergy status to sulfonamides; Z91.048 Other nonmedicinal substance allergy status; Z85.3 Personal history of malignant neoplasm of breast; Z87.891 Personal history of nicotine dependence
CPT/HCPCS: 36591; 99284; 86900; 86901; 36415; 36430; 86850; 85025; P9035

== ENCOUNTER → 2018-05-01 | Outpatient (CLI) | payer MEDICAID ==
--- NOTE | 2018-05-01 11:10 | RADIOLOGY REPORT (SQ) ---
EXAM DESCRIPTION: CT CHEST WITH; CT ABD/PELVIS WITH IV ORAL COMPLETED DATE/TIME: 05/01/2018 10:46 am REASON FOR STUDY: BREAST CA (C50.919) C50.919 MALIGNANT NEOPLASM OF UNSP SITE OF UNSPECIFIED FEMAL COMPARISON: CT chest 04/19/2018, 02/25/2018 Bone scan 01/27/2018 CT chest abdomen pelvis 01/27/2018, 10/29/2017, 10/21/2016 CONTRAST TYPE AND DOSE: contrast/concentration: Isovue 350.00 mg/ml; Total Contrast Delivered: 98.0 ml; Total Saline Delivered: 72.0 ml RENAL FUNCTION: Creatinine 0.95 TECHNIQUE: CT scan of the chest performed using helical scanning technique with dynamic intravenous contrast injection. Images reviewed with lung, soft tissue and bone windows. Reconstructed coronal a nd sagittal MPR images reviewed. All images stored on PACS. CT scan of the abdomen and pelvis performed with intravenous and oral contrast using helical scanning technique with dynamic intravenous contrast injection. Images reviewed with lung, soft tissue and b one windows. Reconstructed coronal and sagittal MPR images reviewed. Delayed images for evaluation of the urinary system also acquired and evaluated. All images stored on PACS. All CT scanners at this facility use dose modulation, iterative reconstruction, and/or weight based d osing when appropriate to reduce radiation dose to as low as reasonably achievable (ALARA). [facility]: Dose Right [facility]: CareDose [facility]: Dose Right [facility]: Teradose 4D [facility]: [employer] RADIATION DOSE: CT Rad equipment meets quality standard of care and radiation dose reduction techniq ues were employed. CTDIvol: 10.4 - 16.8 mGy. DLP: 3081 mGy-cm. . LIMITATIONS: None. FINDINGS: CHEST: AXILLAE: No bulky adenopathy. Stable 1.7 cm left axillary lymph node axial image 20 CHEST WALL: No masses. No subcutaneous air. Old postsurgical change right lateral breast. Diffuse left breast skin thickening with previously biopsied mass with clip in the upper outer quadrant, ill- defined. LUNGS: No nodules or masses. No pneumothorax. No infiltrates. Diffuse changes of obstructive lung disease PLEURA: No effusions. No calcifications. THYROID: No masses or significant asymmetry. HILAR AND MEDIASTINAL STRUCTURES: Less than 7 mm short axis prevascular lymph nodes in the anterior m ediastinum. AORTA AND GREAT VESSELS: No aneurysm. No dissection. PULMONARY ARTERIES: No identified pulmonary emboli. Study not optimized for the pulmonary arteries. HEART: No pericardial effusion. HARDWARE AND LIFELINES: Left permanent central line tip superior vena cava BONES: Widespread metastatic disease throughout the bones of the thorax OTHER: No other significant finding. ABDOMEN AND PELVIS: LIVER: Normal size. No masses. No dilated ducts. SPLEEN: 16 cm in length, similar compared to previous studies. PANCREAS: No masses. No significant calcifications. No adjacent inflammation or peripancreatic flui d collections. Pancreatic duct not dilated. GALLBLADDER: Surgically absent ADRENAL GLANDS: No significant masses or asymmetry. RIGHT KIDNEY AND URETER: No solid masses. No significant calcifications. No hydronephrosis or hyd roureter. LEFT KIDNEY AND URETER: No solid masses. No significant calcifications. No hydronephrosis or hydr oureter. AORTA AND VESSELS: No aneurysm. No dissection. Renal arteries, SMA, celiac without stenosis. RETROPERITONEUM: No retroperitoneal adenopathy, hemorrhage or masses. LARGE AND SMALL BOWEL: No dilatation. No masses. No wall thickening. No CT evidence of bowel obstr uction. APPENDIX: Normal. ABDOMINAL WALL: Small fat containing umbilical hernia PERITONEAL CAVITY: No free air. No free fluid. No peritoneal implants or masses. PELVIS: No mass or free fluid. Normal bladder. Normal size female pelvic organs BONES: No significant or acute findings. OTHER: No other significant finding. IMPRESSION: Widespread bony metastatic lesions over the chest abdomen pelvis. Post therapeutic changes right breast, left breast tumor and skin thickening similar compared to prio r CT exams. Stable 1.7 cm left axillary lymph node compared to previous studies TECHNICAL DOCUMENTATION: JOB ID: [id number] Quality ID # [id number]: Final reports with documentation of one or more dose reduction techniques (e.g., Au tomated exposure control, adjustment of the mA and/or kV according to patient size, use of iterative reconstruction technique) 2010 [employer]- All Rights Reserved Reading location - IP/workstation name: [email or web address]
== END ==
LOC: RAD 10:00
PROVIDERS: ATTEND Internal Medicine Medical Oncology
DX: C50.411 Malignant neoplasm of upper-outer quadrant of right female breast (principal); C79.51 Secondary malignant neoplasm of bone; J44.9 Chronic obstructive pulmonary disease, unspecified
CPT/HCPCS: 71260; 74177

== ENCOUNTER → 2018-05-08 | Outpatient (CLI) | payer MEDICAID ==
--- NOTE | 2018-05-08 13:18 | RADIOLOGY REPORT (SQ) ---
EXAM DESCRIPTION: NM WHOLE BODY BONE SCAN COMPLETED DATE/TIME: 05/08/2018 12:25 pm REASON FOR STUDY: BREAST CA (C50.919), SECONDARY BONE CA (C79.51) C50.919 MALIGNANT NEOPLASM OF UNS P SITE OF UNSPECIFIED FEMAL C79.51 SECONDARY MALIGNANT NEOPLASM OF BONE COMPARISON: 02/14/2014, 03/13/2015, 04/03/2016, 11/27/2016, 10/29/2017, 01/27/[address] chest abdomen pelvis 05/01/2018 RADIONUCLIDE AND DOSE: 22 millicuries Tc99m MDP. The route of agent administration: Intravenous. ADDITIONAL DRUGS AND DOSES: None. TECHNIQUE: Routine delayed images at 3 hours post radionuclide injection acquired of the bony skelet on including anterior and posterior whole-body projections and additional focused images as needed. LIMITATIONS: None. FINDINGS: BONES: There is stable very mild increased uptake over the midthoracic spine costovertebra l joints, ribs, white femoral intertrochanteric region, from known metastatic disease. Markedly increased uptake over the knees, spotty increased uptake right and left tibia, increased upt chester in the right calcaneus are all stable. KIDNEYS: Symmetric excretion without obstruction. OTHER: No other significant finding. IMPRESSION: Stable bone scan, patient has known metastatic breast cancer with widespread bony involv ement. Overall intensity and number of active skeletal lesions is similar compared to 01/27/2018 bone scan. COMMENT: Quality measure 147: Current bone scan is compared with any available plain radiographs, p rior bone scans, and CT/MRI. TECHNICAL DOCUMENTATION: JOB ID: [id number] [employer]- All Rights Reserved Reading location - IP/workstation name: [email or web address]
== END ==
LOC: RAD 08:02
PROVIDERS: ATTEND Internal Medicine Medical Oncology
DX: C50.919 Malignant neoplasm of unspecified site of unspecified female breast (principal); C79.51 Secondary malignant neoplasm of bone
CPT/HCPCS: 78306; A9561; Q9969

== ENCOUNTER 2018-05-14 21:05 | Emergency (ER) | payer MEDICAID ==
[2018-05-14] MEDS ORDERED: METHYLPREDNISOLONE INJ 125 MG/2 ML SDV IV ONE (21:28)
[2018-05-14] MEDS ORDERED: IPRATROPIUM/ALBUTEROL 0.5-2.5 MG/3 ML AMPUL NEB ONE ×2 (21:28)
--- NOTE | 2018-05-14 21:32 | ER Document Report ---
ED Medical Screen (RME) - General Chief Complaint: Shortness Of Breath Stated Complaint: SHORTNESS OF BREATH Time Seen by Provider: 05/14/18 21:26 Notes: 52-year-old female with a history of COPD and metastatic cancer, reports shortness of breath since this morning when she was receiving platelets from her oncologist. States she has a deep cough, left-sided rib pain, shortness of breath. No fever. She is on 2 L nasal cannula at home. TRAVEL OUTSIDE OF THE [place] IN LAST 30 DAYS: No - Related Data Allergies/Adverse Reactions: latex Allergy (Severe, Verified 04/28/18 12:47) blisters,rash morphine [Morphine] Allergy (Severe, Verified 04/28/18 12:47) short of breath Sulfa (Sulfonamide Antibiotics) Allergy (Intermediate, Verified 04/28/18 12:47) rash adhesive Allergy (Verified 04/28/18 12:47) Plastic tape Adverse Reaction (Uncoded 04/28/18 12:47) Blisters Past Medical History - Past Medical History Cardiac Medical History: Reports: Hx Congestive Heart Failure, Hx Heart Attack Denies: Hx Coronary Artery Disease, Hx Hypertension Pulmonary Medical History: Reports: Hx Asthma, Hx COPD, Hx Pneumonia Denies: Hx Bronchitis Neurological Medical History: Denies: Hx Cerebrovascular Accident, Hx Seizures Renal/ Medical History: Denies: Hx Peritoneal Dialysis Malignancy Medical History: Reports: Hx Breast Cancer - Stage IV, mets to L5 and R & L posterior parietal skull. GI Medical History: Reports: Hx Cirrhosis, Hx Gastroesophageal Reflux Disease, Hx Ulcer Musculoskeltal Medical History: Reports Hx Arthritis - generalized, Reports Hx Musculoskeletal Deformity, Reports Hx Musculoskeletal Trauma Psychiatric Medical History: Reports: Hx Anxiety Traumatic Medical History: Reports: Hx Fractures Past Surgical History: Reports: Hx Breast Surgery - Right lumpectomy x2 w/ axillary lymph node diseection., Hx Cholecystectomy, Hx Orthopedic Surgery - Left patellar reconstruction, Hx Tonsillectomy, Hx Tubal Ligation. Denies: Hx Hysterectomy - Immunizations Immunizations up to date: Yes Hx Diphtheria, Pertussis, Tetanus Vaccination: No History of Influenza Vaccine for 02/2017 - 07/2017 Season: Yes Influenza Administration Date for 02/2017 - 07/2017 Season: 02/16/18 Physical Exam - Vital signs Vitals: Temp Pulse Resp BP Pulse Ox 99.5 F 127 H 26 H 115/60 86 L 05/14/18 21:26 05/14/18 21:26 05/14/18 21:26 05/14/18 21:26 05/14/18 21:26 - General General appearance: Other - Patient tachypneic, groaning - Respiratory Respiratory status: Labored - Thank you, Tachypnea Breath sounds: Decreased air movement, Nonproductive cough, Wheezing - Cardiovascular Rhythm: Regular, Tachycardia Heart sounds: Normal auscultation, S1 appreciated, S2 appreciated Course - Re-evaluation Re-evalutation: I pulled patient back immediately and placed on 2 L nasal cannula, oxygen did improve at first to 94 but then trended back down into the upper 80s. Patient remains tachypneic and tachycardic. Called for a room, patient will be taken immediately back. - Vital Signs Vital signs: Temp Pulse Resp BP Pulse Ox 99.5 F 127 H 26 H 115/60 86 L 05/14/18 21:26 05/14/18 21:26 05/14/18 21:26 05/14/18 21:26 05/14/18 21:26 Doctor's Discharge - Discharge Referrals: HINA LAW MD [Primary Care Provider] - Follow up as needed
[2018-05-14] MEDS ORDERED: LORAZEPAM INJ 2 MG/1 ML VIAL IV ONE (21:43)
[2018-05-14] MEDS ORDERED: FENTANYL CITRATE INJ/PF 100 MCG/2 ML AMPUL IV ONE (21:44)
[2018-05-14] MEDS: MAGNESIUM SULFATE/D5W 1 GM/100 ML RTUPB IV SCH ×2 (21:57→22:26)
--- NOTE | 2018-05-14 21:57 | ER Document Report ---
ED General - General TRAVEL OUTSIDE OF THE [place] IN LAST 30 DAYS: No - HPI Patient complains to provider of: Left lower rib pain, can't breathe <MARKY CHILD - Last Filed: 05/15/18 06:08> <MARYANN MARROQUIN - Last Filed: 05/16/18 00:43> - General Chief Complaint: Shortness Of Breath Stated Complaint: SHORTNESS OF BREATH Time Seen by Provider: 05/14/18 21:26 Notes: 52-year-old female with COPD and metastatic breast cancer currently on tamoxifen presents to the emergency department for shortness of breath, left rib pain, and pain in the midthoracic region. She was at her oncologist today receiving platelet infusions when she became acutely short of breath. Per patient, she was going to come to the emergency department earlier today but decided to go home. Her dyspnea became worse prompting her to return to the emergency depa rtment now. Patient endorses dyspnea, chest wall pain worse with breathing mostly left lower ribs, back pain. Patient denies that she is ever had any blood clots in her legs or history of PE. Her primary care doctor is through [facility] in [place]. (MARKY CHILD) - Related Data Allergies/Adverse Reactions: latex Allergy (Severe, Verified 04/28/18 12:47) blisters,rash morphine [Morphine] Allergy (Severe, Verified 04/28/18 12:47) short of breath Sulfa (Sulfonamide Antibiotics) Allergy (Intermediate, Verified 04/28/18 12:47) rash adhesive Allergy (Verified 04/28/18 12:47) Plastic tape Adverse Reaction (Uncoded 04/28/18 12:47) Blisters Past Medical History - General Information source: Patient - Social History Smoking Status: Current Every Day Smoker Cigarette use (# per day): Yes Frequency of alcohol use: None Drug Abuse: None Family History: None, Reviewed & Not Pertinent - Past Medical History Cardiac Medical History: Reports: Hx Congestive Heart Failure, Hx Heart Attack Denies: Hx Coronary Artery Disease, Hx Hypertension Pulmonary Medical History: Reports: Hx Asthma, Hx COPD, Hx Pneumonia Denies: Hx Bronchitis Neurological Medical History: Denies: Hx Cerebrovascular Accident, Hx Seizures Renal/ Medical History: Denies: Hx Peritoneal Dialysis Malignancy Medical History: Reports: Hx Breast Cancer - Stage IV, mets to L5 and R & L posterior parietal skull. GI Medical History: Reports: Hx Cirrhosis, Hx Gastroesophageal Reflux Disease, Hx Ulcer Musculoskeletal Medical History: Reports Hx Arthritis - generalized, Reports Hx Musculoskeletal Deformity, Reports Hx Musculoskeletal Trauma Psychiatric Medical History: Reports: Hx Anxiety Traumatic Medical History: Reports: Hx Fractures Past Surgical History: Reports: Hx Breast Surgery - Right lumpectomy x2 w/ axillary lymph node diseection., Hx Cholecystectomy, Hx Orthopedic Surgery - Left patellar reconstruction, Hx Tonsillectomy, Hx Tubal Ligation. Denies: Hx Hysterectomy - Immunizations Immunizations up to date: Yes Hx Diphtheria, Pertussis, Tetanus Vaccination: No Hx Pneumococcal Vaccination: 01/26/15 <MARKY CHILD - Last Filed: 05/15/18 06:08> Review of Systems - Review of Systems Constitutional: No symptoms reported EENT: No symptoms reported Cardiovascular: See HPI Respiratory: See HPI Gastrointestinal: No symptoms reported Genitourinary: No symptoms reported Female Genitourinary: No symptoms reported Musculoskeletal: No symptoms reported Skin: No symptoms reported Hematologic/Lymphatic: No symptoms reported Neurological/Psychological: No symptoms reported <MARKY CHILD - Last Filed: 05/15/18 06:08> Physical Exam <MARKY CHILD - Last Filed: 05/15/18 06:08> - Vital signs Vitals: Temp Pulse Resp BP Pulse Ox 99.5 F 127 H 26 H 115/60 86 L 05/14/18 21:26 05/14/18 21:26 05/14/18 21:26 05/14/18 21:26 05/14/18 21:26 - Notes Notes: Reviewed vital signs and nursing note as charted by RN. CONSTITUTIONAL: Ill-appearing in acute distress HEAD: Normocephalic, atraumatic, no swelling EYES: PERRL, Conjunctivae clear, no drainage, EOMI, no scleral icterus ENT: External ears without lesions, External auditory canal is patent, Tairway patent, mucous membranes pink and moist NECK: Supple, no cervical lymphadenopathy, no masses CARD: Regular rate and rhythm, no murmurs, no rubs, no gallops, capillary refill < 2 seconds, symmetric pulses RESP: In acute respiratory distress, tachypneic, diminished breath sounds throughout ABD/GI: Normal bowel sounds, distended, tense, non-tender, no rebound, no guarding, no palpable organomegaly EXT: Normal ROM in all joints, non-tender to palpation, no effusions, no edema SKIN: Normal color for age and race, warm, dry, good turgor, no acute lesions noted NEURO: No facial asymmetry, moves all extremities equally, motor and sensory function intact (MARKY CHILD) Course - Laboratory Result Diagrams: 05/14/18 21:50 05/14/18 21:50 <MARKY CHILD - Last Filed: 05/15/18 06:08> - Laboratory Result Diagrams: 05/14/18 21:50 05/14/18 21:50 <MARYANN MARROQUIN - Last Filed: 05/16/18 00:43> - Re-evaluation Re-evalutation: 05/14/18 22:08 52-year-old female with known metastatic breast cancer on tamoxifen to her bones and COPD on home oxygen presents in acute respiratory distress. She was in her oncologist office this morning receiving platelets when she developed the symptoms but deferred coming down to the emergency department until now. On arrival patient was tachypneic in the 20s, tachycardic in the 120s, and initial SPO2 was 86% coming through the door. She is on home oxygen, 2.5 L. When she was in the exam room her SPO2 improved to the mid 90s. Patient seen with Dr. Marroquin. she was immediately given a nebulizer treatment and she stated that it helped then placed on BiPAP 14/6. Patient reports improved comfort on the BiPAP. Chest x-ray, VBG, full set of labs, and chest CTA ordered. I asked the patient if she stopped breathing would we want to place a breathing tube in her throat and she said no. I then asked if her heart stops if we were to perform CPR and she told me that her bones are too brittle. She states that she had the discussion with her oncologist about DNR and per patient she is not ready at this time. 05/14/18 23:08 VBG results showed PCO2 of 55, bicarb 28. Patient says she is feeling much better and wants to come off BiPAP. Myself and Dr. Marroquin discussed with patient her concerns and recommendation for admission but patient is refusing and wants to leave AGAINST MEDICAL ADVICE. Platelets were 25,000. BiPAP was removed and patient was placed on a nasal cannula at home dose of 2.5 L. Patien t tolerated nasal cannula and O2 sats have been 94-95%. Reiterated to patient we would like to admit her to the hospital but she was insistent on going home. 05/15/18 02:56 05/15/18 06:09 (MARKY CHILD) 05/16/18 00:42 I personally evaluated the patient. Patient presents in respiratory distress, hypoxic. Patient was treated with breathing treatments, Solu-Medrol and placed on BiPAP. Patient refusing imaging, admission. States that she feels much better. Patient offered admission multiple times but declines. Patient will be discharged home AGAINST MEDICAL ADVICE. (MARYANN MARROQUIN) - Vital Signs Vital signs: Temp Pulse Resp BP Pulse Ox 99.5 F 127 H 21 H 120/74 95 05/14/18 21:26 05/14/18 21:26 05/14/18 23:01 05/14/18 23:01 05/14/18 23:01 - Laboratory Laboratory results interpreted by me: 05/14/18 05/14/18 05/14/18 21:50 21:50 21:50 RBC 2.33 L Hgb 8.2 L Hct 22.7 L MCH 35.3 H MCHC 36.3 H RDW 22.1 H Plt Count 25 L* Lymphocytes % (Manual) 10 L Metamyelocytes % 2 H Myelocytes % 3 H VBG HCO3 32.5 H Sodium 129.7 L Chloride 93 L Carbon Dioxide 33 H Anion Gap 4 L Glucose 111 H Calcium 8.3 L Total Bilirubin 1.9 H Direct Bilirubin 0.7 H AST 77 H Alkaline Phosphatase 246 H Total Protein 5.8 L Albumin 2.9 L Discharge <MARKY CHILD - Last Filed: 05/15/18 06:08> <MARYANN MARROQUIN - Last Filed: 05/16/18 00:43> - Discharge Clinical Impression: COPD exacerbation, Hypoxia, Shortness of breath, Tobacco dependence due to cigarettes Condition: Stable Disposition: AGAINST MEDICAL ADVICE Instructions: Chronic Obstructive Lung Disease ([facility]) Prescriptions: RX: Doxycycline Hyclate 100 mg PO BID 7 Days #14 capsule RX: Doxycycline Hyclate 100 mg PO BID #14 capsule Referrals: AWOMOLO,HINA, MD [Primary Care Provider] - Follow up as needed
[2018-05-14 22:11] LABS: VENOUS BLOOD BASE EXCESS 5.4 mmol/L; VENOUS BLOOD HCO3 32.5 mmol/L (20-32); VENOUS BLOOD PCO2 55.1 mmHg (35-63); VENOUS BLOOD PH 7.39 (7.30-7.42)
[2018-05-14 22:16] LABS: HEMATOCRIT 22.7 % (36.0-47.0); HEMOGLOBIN 8.2 g/dL (12.0-15.5); MEAN CORPUSCULAR HEMOGLOBIN 35.3 pg (27.0-33.4); MEAN CORPUSCULAR HGB CONC 36.3 g/dL (32.0-36.0); MEAN CORPUSCULAR VOLUME 97 fl (80-97); RED BLOOD COUNT 2.33 10^6/uL (3.72-5.28); RED CELL DISTRIBUTION WIDTH 22.1 % (11.5-14.0)
--- NOTE | 2018-05-14 22:22 | RADIOLOGY REPORT (SQ) ---
EXAM DESCRIPTION: XR CHEST 1 VIEW COMPLETED DATE/TME: 05/14/2018 21:27 CLINICAL HISTORY: 52 years, Female, shortness of breath, hypoxia COMPARISON: 04-19-18 chest NUMBER OF VIEWS: 1 TECHNIQUE: Frontal view chest LIMITATIONS: None. FINDINGS: The heart size is normal. [id number] catheter in place. Coarse interstitial changes bilaterally. Small bibasilar pleural effusions. Patchy airspace opacity left lung base. No pneumothorax IMPRESSION: Coarse interstitial changes with small bibasilar effusions. Airspace opacity left lung base. copyright 2010 [employer]- All Rights Reserved
[2018-05-14 22:35] LABS: ALANINE AMINOTRANSFERASE 40 U/L (9-52); ALBUMIN 2.9 g/dL (3.5-5.0); ALKALINE PHOSPHATASE 246 U/L (38-126); ASPARTATE AMINO TRANSFERASE 77 U/L (14-36); BILIRUBIN,DIRECT 0.7 mg/dL (0.0-0.4); BILIRUBIN,TOTAL 1.9 mg/dL (0.2-1.3); BLOOD UREA NITROGEN 13 mg/dL (7-20); CALCIUM 8.3 mg/dL (8.4-10.2); GLUCOSE 111 mg/dL (75-110); POTASSIUM 4.1 mmol/L (3.6-5.0); TOTAL PROTEIN 5.8 g/dL (6.3-8.2)
[2018-05-14 22:40] LABS: CARBON DIOXIDE 33 mmol/L (22-30); CHLORIDE 93 mmol/L (98-107); SODIUM 129.7 mmol/L (137-145)
[2018-05-14 22:41] LABS: ANION GAP 4 (5-19)
[2018-05-14 22:47] LABS: ABSOLUTE LYMPHOCYTES# (MANUAL) 0.7 10^3/uL (0.5-4.7); ABSOLUTE MONOCYTES # (MANUAL) 0.4 10^3/uL (0.1-1.4); ABSOLUTE NEUTROPHILS# (MANUAL) 5.9 10^3/uL (1.7-8.2); BAND NEUTROPHILS % (MANUAL) 3 % (3-5); BASOPHILS % (MANUAL) 0 % (0-2); EOSINOPHILS % (MANUAL) 0 % (0-6); LYMPHOCYTES % (MANUAL) 10 % (13-45); METAMYELOCYTES % (MANUAL) 2 % (0); MONOCYTES % (MANUAL) 6 % (3-13); NUCLEATED RED BLOOD CELLS 22 /100 WBC (0); SEGMENTED NEUTROPHILS % (MAN) 76 % (42-78); TOTAL CELLS COUNTED 100
[2018-05-14 22:48] LABS: PLATELET COMMENT DECREASED
[2018-05-14 22:49] LABS: ANISOCYTOSIS 3+; BURR CELLS SLIGHT; POIKILOCYTOSIS SLIGHT; POLYCHROMASIA SLIGHT
[2018-05-14 22:53] LABS: WHITE BLOOD COUNT 5.7 10^3/uL (4.0-10.5)
[2018-05-14 22:57] LABS: PLATELET COUNT 25 10^3/uL (150-450)
[2018-05-14 22:58] LABS: MYELOCYTES % (MANUAL) 3 % (0)
[2018-05-14 23:12] VITALS: BP 120/74
[2018-05-15 11:17] LABS: PATH REVIEW PATHOLOGIST REVIEWED
--- NOTE | 2018-05-15 15:03 | EKG REPORT ---
SEVERITY:- ABNORMAL ECG - ECTOPIC ATRIAL TACHYCARDIA VENTRICULAR PREMATURE COMPLEX : Confirmed by: Brittany Varma 15-May-2018 15:02:49
== END 2018-05-14 23:44 | disposition left against medical advice (07) ==
LOC: ER 21:05
DX: J44.1 Chronic obstructive pulmonary disease with (acute) exacerbation (principal); C50.919 Malignant neoplasm of unspecified site of unspecified female breast; C79.51 Secondary malignant neoplasm of bone; Z79.899 Other long term (current) drug therapy; F17.210 Nicotine dependence, cigarettes, uncomplicated; R00.0 Tachycardia, unspecified; R09.02 Hypoxemia; R06.02 Shortness of breath; R07.81 Pleurodynia; Z91.041 Radiographic dye allergy status; Z88.5 Allergy status to narcotic agent; Z99.81 Dependence on supplemental oxygen; Z88.2 Allergy status to sulfonamides; Z91.048 Other nonmedicinal substance allergy status; Z53.20 Procedure and treatment not carried out because of patient's decision for unspecified reasons
CPT/HCPCS: 93005; 94640 ×2; 99285; 96365; 96366; 36415; 87040; 85025; 87077; 80053; 84484; 87186; 82803; 71045; 93010; 94660; J3475; J7620

== ENCOUNTER 2018-05-19 18:30 | Emergency (ER) | payer MEDICAID ==
[2018-05-19 19:02] VITALS: BP 94/53
--- NOTE | 2018-05-19 21:31 | ER Document Report ---
ED Medical Screen (RME) - General Chief Complaint: Thigh Pain Stated Complaint: SWOLLEN RT LEG Time Seen by Provider: 05/19/18 21:29 Notes: Patient is a 52-year-old female who presents to the emergency department with right lower extremity swelling. She denies any pain in the area. Her swelling started last night. She is on chemotherapy and has cancer in bilateral legs. She does see Dr. Law for her chemotherapy management. She states that she has shortness of breath, but not anything different than her normal shortness of breath from her emphysema. TRAVEL OUTSIDE OF THE [place] IN LAST 30 DAYS: No - Related Data Allergies/Adverse Reactions: latex Allergy (Severe, Verified 04/28/18 12:47) blisters,rash morphine [Morphine] Allergy (Severe, Verified 04/28/18 12:47) short of breath Sulfa (Sulfonamide Antibiotics) Allergy (Intermediate, Verified 04/28/18 12:47) rash adhesive Allergy (Verified 04/28/18 12:47) Plastic tape Adverse Reaction (Uncoded 04/28/18 12:47) Blisters Past Medical History - Past Medical History Cardiac Medical History: Reports: Hx Congestive Heart Failure, Hx Heart Attack Denies: Hx Coronary Artery Disease, Hx Hypertension Pulmonary Medical History: Reports: Hx Asthma, Hx COPD, Hx Pneumonia Denies: Hx Bronchitis Neurological Medical History: Denies: Hx Cerebrovascular Accident, Hx Seizures Renal/ Medical History: Denies: Hx Peritoneal Dialysis Malignancy Medical History: Reports: Hx Breast Cancer - Stage IV, mets to L5 and R & L posterior parietal skull. GI Medical History: Reports: Hx Cirrhosis, Hx Gastroesophageal Reflux Disease, Hx Ulcer Musculoskeltal Medical History: Reports Hx Arthritis - generalized, Reports Hx Musculoskeletal Deformity, Reports Hx Musculoskeletal Trauma Psychiatric Medical History: Reports: Hx Anxiety Traumatic Medical History: Reports: Hx Fractures Past Surgical History: Reports: Hx Breast Surgery - Right lumpectomy x2 w/ axillary lymph node diseection., Hx Cholecystectomy, Hx Orthopedic Surgery - Left patellar reconstruction, Hx Tonsillectomy, Hx Tubal Ligation. Denies: Hx Hysterectomy - Immunizations Immunizations up to date: Yes Hx Diphtheria, Pertussis, Tetanus Vaccination: No History of Influenza Vaccine for 02/2017 - 07/2017 Season: Yes Influenza Administration Date for 02/2017 - 07/2017 Season: 02/16/18 Physical Exam - Vital signs Vitals: Temp Pulse Resp BP Pulse Ox 99.2 F 126 H 20 94/53 L 87 L 05/19/18 18:52 05/19/18 18:52 05/19/18 18:52 05/19/18 18:52 05/19/18 18:52 - Respiratory Respiratory status: No respiratory distress Breath sounds: Normal - Extremities General lower extremity: Edema - Right, redness Course - Vital Signs Vital signs: Temp Pulse Resp BP Pulse Ox 99.2 F 126 H 20 94/53 L 87 L 05/19/18 18:52 05/19/18 18:52 05/19/18 18:52 05/19/18 18:52 05/19/18 18:52 Doctor's Discharge - Discharge Referrals: HINA LAW MD [Primary Care Provider] - Follow up as needed
--- NOTE | 2018-05-20 00:25 | ER Document Report ---
Doctor's Note Notes: 05/20/18 00:2 I picked up the chart to go see the patient. I never got to see the patient because right after I picked up the chart the contract technical writer informed me that the patient has eloped and is no longer here.
== END 2018-05-20 00:35 | disposition left against medical advice (07) ==
LOC: ER 18:30
DX: R60.0 Localized edema (principal); L53.9 Erythematous condition, unspecified; C76.52 Malignant neoplasm of left lower limb; C76.51 Malignant neoplasm of right lower limb; Z79.899 Other long term (current) drug therapy; J43.9 Emphysema, unspecified; R06.02 Shortness of breath; Z53.20 Procedure and treatment not carried out because of patient's decision for unspecified reasons; Z91.040 Latex allergy status; Z88.5 Allergy status to narcotic agent; Z88.2 Allergy status to sulfonamides; Z91.048 Other nonmedicinal substance allergy status
CPT/HCPCS: 99281

== ENCOUNTER 2018-05-20 16:33 | Outpatient (CLI) | payer MEDICAID ==
[~2018-05-20 16:33] MED LIST changes: +ACETAMINOPHEN 325 MG TABLET PO PRN; +DIPHENHYDRAMINE HCL 25 MG CAPSULE PO PRN; +FUROSEMIDE INJ/PF 20 MG/2 ML SDV IV PRN; -NORMAL SALINE 1000 ML 1,000 ML IV PRN; -ONDANSETRON HCL INJ/PF 4 MG/2 ML SDV IV PRN
[2018-05-20] MEDS ORDERED: NORMAL SALINE 250 ML IV PRN (18:00)
[2018-05-20] MEDS ORDERED: NORMAL SALINE 10 ML SDV (AFTER EACH USE) IV PRN (18:00)
[2018-05-20 21:11] LABS: HEMATOCRIT 18.9 % (36.0-47.0); MEAN CORPUSCULAR HEMOGLOBIN 35.3 pg (27.0-33.4); MEAN CORPUSCULAR HGB CONC 34.5 g/dL (32.0-36.0); RED BLOOD COUNT 1.85 10^6/uL (3.72-5.28); WHITE BLOOD COUNT 9.2 10^3/uL (4.0-10.5)
[2018-05-20 21:33] LABS: MEAN CORPUSCULAR VOLUME 102 fl (80-97)
[2018-05-20 21:35] LABS: HEMOGLOBIN 6.5 g/dL (12.0-15.5); PLATELET COUNT 6 10^3/uL (150-450)
[2018-05-20] MEDS ORDERED: NORMAL SALINE 10 ML SDV (SCHEDULED) IV SCH (22:00)
[2018-05-21 09:20] VITALS: BP 88/70
[2018-05-21 10:23] LABS: HEMATOCRIT 22.7 % (36.0-47.0); MEAN CORPUSCULAR HEMOGLOBIN 33.4 pg (27.0-33.4); MEAN CORPUSCULAR HGB CONC 34.6 g/dL (32.0-36.0); RED BLOOD COUNT 2.35 10^6/uL (3.72-5.28); RED CELL DISTRIBUTION WIDTH 22.7 % (11.5-14.0)
[2018-05-21 11:43] LABS: PLATELET COUNT 49 10^3/uL (150-450); WHITE BLOOD COUNT 5.3 10^3/uL (4.0-10.5)
[2018-05-21 11:44] LABS: MEAN CORPUSCULAR VOLUME 96 fl (80-97)
[2018-05-21 11:47] LABS: HEMOGLOBIN 7.8 g/dL (12.0-15.5)
== END 2018-05-21 10:16 | disposition home or self-care (01) ==
LOC: II 16:33 → 4N 16:34 → II 05-21 10:16
PROVIDERS: ATTEND Internal Medicine Medical Oncology
DX: C50.919 Malignant neoplasm of unspecified site of unspecified female breast (principal); C79.51 Secondary malignant neoplasm of bone
CPT/HCPCS: 86900; 86901; 36415; 36430; 86850; 85027; 86920; P9016; P9035

== ENCOUNTER 2018-05-23 20:01 | Emergency (ER) | payer MEDICAID ==
[2018-05-23] MEDS ORDERED: FENTANYL CITRATE INJ/PF 100 MCG/2 ML AMPUL IV ONE ×2 (20:55→22:15)
[2018-05-23] MEDS ORDERED: NORMAL SALINE 1000 ML 1,000 ML IV ONE (20:55)
--- NOTE | 2018-05-23 21:00 | ER Document Report ---
ED General - General Chief Complaint: Shortness Of Breath Stated Complaint: RIB PAIN Time Seen by Provider: 05/23/18 20:49 Notes: Patient is a 52-year-old female that comes to the emergency department for chief complaint of difficulty breathing and pain along her left ribs, she also reports sudden swelling of her right lower extremity over the past few days which is significantly worse now. She is currently on tamoxifen for breast cancer with bony metastasis, states she had a PET scan last month that showed she had stable cancer with no progression. She currently smokes, she is on 3 L nasal cannula at home. She denies history of blood clot. She follows with Dr. Law. TRAVEL OUTSIDE OF THE [place] IN LAST 30 DAYS: No - Related Data Allergies/Adverse Reactions: latex Allergy (Severe, Verified 04/28/18 12:47) blisters,rash morphine [Morphine] Allergy (Severe, Verified 04/28/18 12:47) short of breath Sulfa (Sulfonamide Antibiotics) Allergy (Intermediate, Verified 04/28/18 12:47) rash adhesive Allergy (Verified 04/28/18 12:47) Plastic tape Adverse Reaction (Uncoded 04/28/18 12:47) Blisters Past Medical History - General Information source: Patient - Social History Smoking Status: Current Every Day Smoker Smoking Education Provided: Yes - <3 min Frequency of alcohol use: None Drug Abuse: None Lives with: Family Family History: None, Reviewed & Not Pertinent - Past Medical History Cardiac Medical History: Reports: Hx Congestive Heart Failure, Hx Heart Attack Denies: Hx Coronary Artery Disease, Hx Hypertension Pulmonary Medical History: Reports: Hx Asthma, Hx COPD, Hx Pneumonia Denies: Hx Bronchitis Neurological Medical History: Denies: Hx Cerebrovascular Accident, Hx Seizures Renal/ Medical History: Denies: Hx Peritoneal Dialysis Malignancy Medical History: Reports: Hx Breast Cancer - Stage IV, mets to L5 and R & L posterior parietal skull. GI Medical History: Reports: Hx Cirrhosis, Hx Gastroesophageal Reflux Disease, Hx Ulcer Musculoskeletal Medical History: Reports Hx Arthritis - generalized, Reports Hx Musculoskeletal Deformity, Reports Hx Musculoskeletal Trauma Psychiatric Medical History: Reports: Hx Anxiety Traumatic Medical History: Reports: Hx Fractures Past Surgical History: Reports: Hx Breast Surgery - Right lumpectomy x2 w/ axillary lymph node diseection., Hx Cholecystectomy, Hx Orthopedic Surgery - Left patellar reconstruction, Hx Tonsillectomy, Hx Tubal Ligation. Denies: Hx Hysterectomy - Immunizations Immunizations up to date: Yes Hx Diphtheria, Pertussis, Tetanus Vaccination: Yes Hx Pneumococcal Vaccination: 01/26/15 Review of Systems - Review of Systems Constitutional: No symptoms reported EENT: No symptoms reported Cardiovascular: See HPI Respiratory: See HPI Gastrointestinal: No symptoms reported Genitourinary: No symptoms reported Female Genitourinary: No symptoms reported Musculoskeletal: See HPI Skin: No symptoms reported Hematologic/Lymphatic: See HPI Neurological/Psychological: No symptoms reported Physical Exam - Vital signs Vitals: Temp Pulse Resp BP Pulse Ox 99.1 F 117 H 24 H 101/48 L 92 05/23/18 20:01 05/23/18 20:01 05/23/18 20:01 05/23/18 20:01 05/23/18 20:01 - Notes Notes: GENERAL: Alert, interacts well. Chronically ill-appearing. Does not appear to be in distress. HEAD: Normocephalic, atraumatic. EYES: Pupils equal, round, and reactive to light. Extraocular movements intact. ENT: Oral mucosa dry, tongue midline. Oropharynx unremarkable. Airway patent. Nares patent, no nasal septal hematoma, TM's intact. NECK: Full range of motion. Supple. Trachea midline. LUNGS: Decreased breath sounds bilaterally with a few scattered coarse breath sounds but no overt wheezing, rales, rhonchi. HEART: Tachycardia, normal rhythm, no murmur. ABDOMEN: Soft, non-tender. Non-distended. Bowel sounds present in all 4 quadrants. GENITOURINARY: Deferred EXTREMITIES: Moves all 4 extremities spontaneously. Chronic discoloration of both lower extremities. Right lower extremity with swelling that extends up to the top of the calf and some of the knee. Normal distal neurovascular exam. BACK: no cervical, thoracic, lumbar midline tenderness. No saddle anesthesia, normal distal neurovascular exam. NEUROLOGICAL: Alert and oriented x3. Normal speech. [cranial nerves II through XII grossly intact]. PSYCH: Normal affect, normal mood. SKIN: Warm, dry, normal turgor. No rashes or lesions noted. Course - Re-evaluation Re-evalutation: Patient is tachycardic, she has right lower extremity swelling on exam, she has occasional cough, complaints over the left side of her rib, she appears chr onically ill-appearing but she does not appear to be in any distress. Oxygen saturation fluctuating from low 90s to upper 90s. Chest x-ray without acute findings. EKG shows sinus tachycardia with no ST segment changes or T wave inversions in consecutive leads. Troponin is negative. CBC shows hemoglobin of 7.8, this is the same as prior, platelets are low at 7. Patient denies blood in stool, black stools, she has no other bleeding sources. Chemistry nonspecific. Initial result for Doppler of the right lower extremity is negative. Because this is negative, patient reporting shortness of breath, tachycardia, discussed with patient and after discussion decision was made to proceed with CTA to rule out acute respiratory abnormality and pulmonary embolism. CT showing small pleural effusions, atelectasis, nodule that is 7 mm, no PE or other obvious acute abnormality. I discussed with patient. I called and spoke with Dr. Law, her recommendation is for patient be given platelets and be discharged for close follow-up. Patient already has a follow-up appointment on Friday. Patient is already asking if she can leave. I discussed with Dr. Mosquera. Patient is frequently tachycardic on her evaluations here. She is not in respiratory distress. She states she feels at her baseline. Discussed follow-up and return precautions. Patient states understanding and agreement. - Vital Signs Vital signs: Temp Pulse Resp BP Pulse Ox 98.8 F 117 H 26 H 138/77 H 97 05/24/18 00:40 05/23/18 20:01 05/23/18 23:25 05/23/18 23:25 05/23/18 23:25 - Laboratory Result Diagrams: 05/23/18 21:10 05/23/18 21:10 Laboratory results interpreted by me: 05/23/18 05/23/18 05/23/18 21:10 21:10 21:10 RBC 2.28 L Hgb 7.8 L Hct 22.5 L MCV 99 H MCH 34.2 H RDW 23.7 H Plt Count 7 L* D VBG HCO3 36.3 H Sodium 132.6 L Chloride 95 L Carbon Dioxide 38 H Anion Gap 0 L Glucose 142 H Calcium 8.2 L Direct Bilirubin 0.6 H AST 55 H Alkaline Phosphatase 331 H Total Protein 5.4 L Albumin 2.4 L Urine Urobilinogen Urine Ascorbic Acid 05/23/18 23:25 RBC Hgb Hct MCV MCH RDW Plt Count VBG HCO3 Sodium Chloride Carbon Dioxide Anion Gap Glucose Calcium Direct Bilirubin AST Alkaline Phosphatase Total Protein Albumin Urine Urobilinogen 4.0 H Urine Ascorbic Acid 40 H Discharge - Discharge Clinical Impression: Rib pain on left side, Shortness of breath, Thrombocytopenia Condition: Stable Disposition: HOME, SELF-CARE Additional Instructions: You have been given platelets tonight. Your workup tonight does not show any other acute concerning findings. I spoke with Dr. Oracio jimenez, recommendation is close follow-up for additional evaluation and management. Follow-up on Friday as planned. Return if you worsen including if you develop any bleeding, fever, increased difficulty breathing, or any other concerning or worsening symptoms. Referrals: HINA LAW MD [Primary Care Provider] - Follow up as needed
[2018-05-23 21:29] LABS: VENOUS BLOOD BASE EXCESS 10.1 mmol/L; VENOUS BLOOD HCO3 36.3 mmol/L (20-32); VENOUS BLOOD PCO2 58.9 mmHg (35-63); VENOUS BLOOD PH 7.41 (7.30-7.42)
[2018-05-23 21:33] LABS: HEMATOCRIT 22.5 % (36.0-47.0); MEAN CORPUSCULAR HEMOGLOBIN 34.2 pg (27.0-33.4); MEAN CORPUSCULAR HGB CONC 34.7 g/dL (32.0-36.0); MEAN CORPUSCULAR VOLUME 99 fl (80-97); RED BLOOD COUNT 2.28 10^6/uL (3.72-5.28); RED CELL DISTRIBUTION WIDTH 23.7 % (11.5-14.0)
[2018-05-23 21:52] LABS: TOTAL CELLS COUNTED 100
--- NOTE | 2018-05-23 21:52 | RADIOLOGY REPORT (SQ) ---
EXAM DESCRIPTION: XR CHEST 1 VIEW COMPLETED DATE/TME: 05/23/2018 20:56 CLINICAL HISTORY: 52 years, Female, shortness of breath Comparison: None FINDINGS: Mediport from a left subclavian approach terminates in the upper SVC. Mild bibasilar subsegmental atelectasis and probable small pleural effusions. The upper lung zones are clear. There is diffuse prominence of the pulmonary interstitium which may be related to chronic lung disease or edema. The cardiac silhouette is normal in size. IMPRESSION: Bibasilar subsegmental atelectasis and probable small bilateral pleural effusions.
[2018-05-23 21:53] LABS: ANISOCYTOSIS 4+; POLYCHROMASIA 2+
[2018-05-23 21:56] LABS: ALANINE AMINOTRANSFERASE 33 U/L (9-52); ALBUMIN 2.4 g/dL (3.5-5.0); ALKALINE PHOSPHATASE 331 U/L (38-126); ASPARTATE AMINO TRANSFERASE 55 U/L (14-36); BILIRUBIN,DIRECT 0.6 mg/dL (0.0-0.4); BILIRUBIN,TOTAL 1.2 mg/dL (0.2-1.3); BLOOD UREA NITROGEN 14 mg/dL (7-20); CALCIUM 8.2 mg/dL (8.4-10.2); GLUCOSE 142 mg/dL (75-110); HEMOGLOBIN 7.8 g/dL (12.0-15.5); POTASSIUM 4.3 mmol/L (3.6-5.0); TOTAL PROTEIN 5.4 g/dL (6.3-8.2)
[2018-05-23 21:58] LABS: PLATELET COUNT 7 10^3/uL (150-450)
[2018-05-23 22:01] LABS: CARBON DIOXIDE 38 mmol/L (22-30); CHLORIDE 95 mmol/L (98-107); SODIUM 132.6 mmol/L (137-145)
[2018-05-23 22:03] LABS: ANION GAP 0 (5-19)
[2018-05-23 22:04] LABS: PLATELET COMMENT DECREASED
--- NOTE | 2018-05-23 23:16 | RADIOLOGY REPORT (SQ) ---
CLINICAL HISTORY: tachycardia, shortness of breath, smoker, cancer COMPARISON: None. TECHNIQUE: CT CHEST ANGIOGRAPHY WITHOUT THEN WITH IV CONTRAST on 05/23/2018 10:14 PM TOOL INSPECTOR. MIPS reconstructions were generated. This exam was performed according to our departmental dose-optimization program, which includes automated exposure control, adjustment of the mA and/or kV according to patient size and/or use of iterative reconstruction technique. MIP images were generated. FINDINGS: Thoracic aorta is normal in course and caliber without aneurysm or dissection. Pulmonary arteries are somewhat suboptimally opacified with no large or central filling defects. The heart is mildly enlarged. There is no pericardial effusion. Intrathoracic lymph nodes are not enlarged. Left chest port is present. There are small bilateral pleural effusions. Central airways are patent. There is extensive bibasilar atelectasis there is an anterior right lower lobe nodule measuring 7 mm. There is upper lung centrilobular emphysema. In the upper abdomen, the spleen is enlarged at 16.9 cm. There are no acute osseous findings. No suspicious bony lesions. IMPRESSION: No aortic dissection or aneurysm. No large or central pulmonary embolus. Bibasilar atelectasis with pleural effusions and small nodular focus in the right lower lobe. This was not present on recent prior study and is likely due to atelectasis. Splenomegaly.
[2018-05-23 23:52] LABS: APPEARANCE,URINE CLEAR; BILIRUBIN,URINE NEGATIVE (NEGATIVE); COLOR,URINE YELLOW; GLUCOSE, URINE NEGATIVE (NEGATIVE); KETONES,URINE NEGATIVE (NEGATIVE); LEUKOCYTE ESTERASE,URINE NEGATIVE (NEGATIVE); NITRITE,URINE NEGATIVE (NEGATIVE); PROTEIN,URINE NEGATIVE (NEGATIVE); URINE SPECIFIC GRAVITY 1.027
[2018-05-24] MEDS ORDERED: NORMAL SALINE 250 ML IV PRN ×2 (00:04)
[2018-05-24 05:44] VITALS: BP 107/67
--- NOTE | 2018-05-24 08:22 | RADIOLOGY REPORT (SQ) ---
EXAM DESCRIPTION: VENOUS UNILATERAL LOWER COMPLETED DATE/TIME: 05/23/2018 10:28 pm REASON FOR STUDY: RLE swelling, cancer patient COMPARISON: None. TECHNIQUE: Dynamic and static pacheco scale and color images acquired of the right leg venous system. S elected spectral images acquired with additional compression and augmentation maneuvers. The contrala teral common femoral vein and saphenofemoral junction were also imaged. Images stored on PACS. LIMITATIONS: None. FINDINGS: COMMON FEMORAL: Normal phasicity, compression and augmentation. No visualized echogenic ma terial on pacheco scale. No defects on color images. FEMORAL: Normal compression and augmentation. No visualized echogenic material on pacheco scale. No defe cts on color images. POPLITEAL: Normal compression, augmentation. No visualized echogenic material on pacheco scale. No defec ts on color images. CALF VESSELS: Normal compression, augmentation. No visualized echogenic material on pacheco scale. No de fects on color images. GSV and SSV: Normal compression, augmentation. No visualized echogenic material on pacheco scale. No def ects on color images. ANY DEEP VENOUS INSUFFICIENCY: Not evaluated. ANY EVIDENCE OF POPLITEAL CYST: No. OTHER: No other significant finding. CONTRALATERAL COMMON FEMORAL VEIN AND SAPHENOFEMORAL JUNCTION: Normal phasicity, compression and augmentation. No visualized echogenic material on pacheco scale. No de fects on color images. IMPRESSION: Negative examination for deep venous thrombosis in the right lower extremity. TECHNICAL DOCUMENTATION: JOB ID: [id number] [employer]- All Rights Reserved Reading location - IP/workstation name: [email or web address]
--- NOTE | 2018-05-26 07:13 | EKG REPORT ---
SEVERITY:- OTHERWISE NORMAL ECG - SINUS TACHYCARDIA : Confirmed by: Seamus Rodriguez MD 26-May-2018 07:12:27
[2018-05-26 15:22] LABS: ABSOLUTE MONOCYTES # (MANUAL) 0.4 10^3/uL (0.1-1.4); BAND NEUTROPHILS % (MANUAL) 5 % (3-5); BASOPHILS % (MANUAL) 1 % (0-2); EOSINOPHILS % (MANUAL) 1 % (0-6); LYMPHOCYTES % (MANUAL) 21 % (13-45); METAMYELOCYTES % (MANUAL) 1 % (0); MONOCYTES % (MANUAL) 6 % (3-13); MYELOCYTES % (MANUAL) 1 % (0); PROMYELOCYTES % (MANUAL) 2 % (0); SEGMENTED NEUTROPHILS % (MAN) 62 % (42-78)
[2018-05-26 15:23] LABS: ABSOLUTE LYMPHOCYTES# (MANUAL) 1.5 10^3/uL (0.5-4.7); NUCLEATED RED BLOOD CELLS 19 /100 WBC (0); PATH REVIEW PATHOLOGIST REVIEWED
== END 2018-05-24 05:44 | disposition home or self-care (01) ==
LOC: ER 20:01
DX: D69.6 Thrombocytopenia, unspecified (principal); R07.81 Pleurodynia; R06.02 Shortness of breath; C50.919 Malignant neoplasm of unspecified site of unspecified female breast; C79.51 Secondary malignant neoplasm of bone; Z79.810 Long term (current) use of selective estrogen receptor modulators (SERMs); Z88.6 Allergy status to analgesic agent; Z91.040 Latex allergy status; Z88.2 Allergy status to sulfonamides; F17.200 Nicotine dependence, unspecified, uncomplicated; I50.9 Heart failure, unspecified; Z86.74 Personal history of sudden cardiac arrest; J44.9 Chronic obstructive pulmonary disease, unspecified
CPT/HCPCS: 93005; 96376; 99285; 96361; 96374; 86900; 86901; 36415; 36430; 86850; 85025; 80053; 81001; 84484; 82803; 93971; 71045; 71275; 93010; P9035; J3010; J7030

== ENCOUNTER 2018-05-26 13:15 | Outpatient (CLI) | payer MEDICAID ==
[2018-05-26] MEDS ORDERED: NORMAL SALINE 250 ML IV PRN (14:30)
[2018-05-26 14:54] LABS: MEAN CORPUSCULAR HEMOGLOBIN 34.6 pg (27.0-33.4); MEAN CORPUSCULAR HGB CONC 34.9 g/dL (32.0-36.0); MEAN CORPUSCULAR VOLUME 99 fl (80-97); RED BLOOD COUNT 2.01 10^6/uL (3.72-5.28); RED CELL DISTRIBUTION WIDTH 24.2 % (11.5-14.0)
[2018-05-26 15:26] LABS: PLATELET COUNT 6 10^3/uL (150-450)
[2018-05-26 15:27] LABS: WHITE BLOOD COUNT 6.5 10^3/uL (4.0-10.5)
[2018-05-27 01:04] LABS: HEMATOCRIT 25.4 % (36.0-47.0); HEMOGLOBIN 8.8 g/dL (12.0-15.5); MEAN CORPUSCULAR HEMOGLOBIN 33.8 pg (27.0-33.4); MEAN CORPUSCULAR HGB CONC 34.8 g/dL (32.0-36.0); MEAN CORPUSCULAR VOLUME 97 fl (80-97); RED BLOOD COUNT 2.61 10^6/uL (3.72-5.28); RED CELL DISTRIBUTION WIDTH 21.6 % (11.5-14.0); WHITE BLOOD COUNT 7.3 10^3/uL (4.0-10.5)
[2018-05-27 01:45] LABS: PLATELET COUNT 10 10^3/uL (150-450)
[2018-05-27 01:48] LABS: ANISOCYTOSIS 3+; NUCLEATED RED BLOOD CELLS 34 /100 WBC (0); POLYCHROMASIA 1+; TOTAL CELLS COUNTED 100; TOXIC GRANULATION 1+
[2018-05-27 01:49] LABS: PLATELET COMMENT DECREASED; SCHISTOCYTES SLIGHT
[2018-05-27 02:28] VITALS: BP 127/64
[2018-05-28 14:29] LABS: BAND NEUTROPHILS % (MANUAL) 14 % (3-5)
[2018-05-28 14:30] LABS: BASOPHILS % (MANUAL) 2 % (0-2); LYMPHOCYTES % (MANUAL) 15 % (13-45); MONOCYTES % (MANUAL) 6 % (3-13)
[2018-05-28 14:31] LABS: EOSINOPHILS % (MANUAL) 1 % (0-6); METAMYELOCYTES % (MANUAL) 4 % (0); MYELOCYTES % (MANUAL) 3 % (0); PROMYELOCYTES % (MANUAL) 5 % (0)
[2018-05-28 14:33] LABS: SEGMENTED NEUTROPHILS % (MAN) 48 % (42-78)
[2018-05-28 14:36] LABS: ABSOLUTE LYMPHOCYTES# (MANUAL) 1.2 10^3/uL (0.5-4.7)
[2018-05-28 14:37] LABS: ABSOLUTE MONOCYTES # (MANUAL) 0.4 10^3/uL (0.1-1.4)
[2018-05-28 14:39] LABS: ABSOLUTE NEUTROPHILS# (MANUAL) 5.4 10^3/uL (1.7-8.2)
[2018-05-28 14:49] LABS: PATH REVIEW PATHOLOGIST REVIEWED
== END 2018-05-27 01:20 | disposition home or self-care (01) ==
LOC: II 13:15 → 2S 13:15 → II 05-27 01:20
PROVIDERS: ATTEND Internal Medicine Medical Oncology
PROC: 30243N1 Transfusion of Nonautologous Red Blood Cells into Central Vein, Percutaneous Approach (ICD-10-PCS; principal; 2018-05-26)
PROC: 3E043GC Introduction of Other Therapeutic Substance into Central Vein, Percutaneous Approach (ICD-10-PCS; 2018-05-26)
DX: C79.81 Secondary malignant neoplasm of breast (principal); B20 Human immunodeficiency virus [HIV] disease
CPT/HCPCS: 86900; 86901; 36415; 36430; 86850; 85025; 86920; P9016; P9035; J3490; J1940; J7050; 96374

== ENCOUNTER 2018-05-28 09:13 | Outpatient (CLI) | payer MEDICAID ==
[~2018-05-28 09:13] MED LIST changes: +NORMAL SALINE INJ/PF 0.9% 10 ML SDV IV PRN
[2018-05-28] MEDS ORDERED: NORMAL SALINE 250 ML IV PRN (10:30)
[2018-05-28 10:31] LABS: HEMATOCRIT 23.6 % (36.0-47.0); HEMOGLOBIN 8.3 g/dL (12.0-15.5); MEAN CORPUSCULAR HEMOGLOBIN 34.2 pg (27.0-33.4); MEAN CORPUSCULAR VOLUME 98 fl (80-97); RED BLOOD COUNT 2.42 10^6/uL (3.72-5.28)
[2018-05-28 11:16] LABS: PLATELET COUNT 7 10^3/uL (150-450)
[2018-05-28 11:17] LABS: WHITE BLOOD COUNT 6.6 10^3/uL (4.0-10.5)
[2018-05-28 16:21] VITALS: BP 111/74
[2018-05-28 16:55] LABS: HEMATOCRIT 23.6 % (36.0-47.0); MEAN CORPUSCULAR HEMOGLOBIN 34.2 pg (27.0-33.4); MEAN CORPUSCULAR HGB CONC 34.1 g/dL (32.0-36.0); MEAN CORPUSCULAR VOLUME 101 fl (80-97); RED BLOOD COUNT 2.35 10^6/uL (3.72-5.28); WHITE BLOOD COUNT 7.3 10^3/uL (4.0-10.5)
[2018-05-28 17:16] LABS: PLATELET COUNT 27 10^3/uL (150-450)
== END 2018-05-28 16:42 | disposition home or self-care (01) ==
LOC: II 09:13 → 2N 09:24 → II 16:42
PROVIDERS: ATTEND Internal Medicine Medical Oncology
PROC: 3E033GC Introduction of Other Therapeutic Substance into Peripheral Vein, Percutaneous Approach (ICD-10-PCS; principal; 2018-05-28)
PROC: 30233R1 Transfusion of Nonautologous Platelets into Peripheral Vein, Percutaneous Approach (ICD-10-PCS; 2018-05-28)
DX: C79.81 Secondary malignant neoplasm of breast (principal); B20 Human immunodeficiency virus [HIV] disease
CPT/HCPCS: 86900; 86901; 36415; 36430; 85027; P9035; J3490 ×2; J1940; J7050; 96374

== ENCOUNTER 2018-05-30 22:35 | Emergency (ER) | payer MEDICAID ==
[2018-05-30] MEDS ORDERED: IPRATROPIUM/ALBUTEROL 0.5-2.5 MG/3 ML AMPUL NEB ONE (22:48)
--- NOTE | 2018-05-30 22:53 | ER Document Report ---
ED General - General Chief Complaint: General Weakness Stated Complaint: PAIN ALL OVER Time Seen by Provider: 05/30/18 22:42 Notes: Patient 52-year-old female with stage IV breast cancer who is well-known to the ED who has a history of recurrent thrombocytopenia and anemia related to her cancer. She says that she went for a bone marrow biopsy at [facility] to have a bone marrow transplant. They would not do the tra nsplant because her platelets were too low. She has received blood transfusion platelets several times this week. Said last time she received platelets was . This is an ongoing issue. Patient has been talked to about becoming palate of care however she refuses this. She is followed by Dr. Law who is her oncologist. She continues to get her platelets and red blood cells transfused through Dr. Law and sometimes through the ER. She says her breathing is worse than usual. She continues to smoke. She denies any fevers. She is on oxygen at home. She says she is just overall weak to the point where she cannot stand up or walk. I readdressed the patient's CODE STATUS as she has been told by her previous oncologist as well as some of us in the ER that her survivability with her underlying disease is highly unlikely. Patient still is adamant to be a full code. TRAVEL OUTSIDE OF THE [place] IN LAST 30 DAYS: No - Related Data Allergies/Adverse Reactions: latex Allergy (Severe, Verified 04/28/18 12:47) blisters,rash morphine [Morphine] Allergy (Severe, Verified 04/28/18 12:47) short of breath Sulfa (Sulfonamide Antibiotics) Allergy (Intermediate, Verified 04/28/18 12:47) rash adhesive Allergy (Verified 04/28/18 12:47) Plastic tape Adverse Reaction (Uncoded 04/28/18 12:47) Blisters Past Medical History - Social History Smoking Status: Current Every Day Smoker Frequency of alcohol use: None Drug Abuse: None Family History: None, Reviewed & Not Pertinent - Past Medical History Cardiac Medical History: Denies: Hx Congestive Heart Failure, Hx Coronary Artery Disease, Hx Heart Attack, Hx Hypertension Pulmonary Medical History: Reports: Hx Asthma, Hx COPD, Hx Pneumonia Denies: Hx Bronchitis Neurological Medical History: Denies: Hx Cerebrovascular Accident, Hx Seizures Renal/ Medical History: Denies: Hx Peritoneal Dialysis Malignancy Medical History: Reports: Hx Breast Cancer - Stage IV, mets to L5 and R & L posterior parietal skull. GI Medical History: Reports: Hx Gastroesophageal Reflux Disease. Denies: Hx Cirrhosis, Hx Ulcer Musculoskeletal Medical History: Reports Hx Arthritis - generalized, Reports Hx Musculoskeletal Deformity, Reports Hx Musculoskeletal Trauma Psychiatric Medical History: Reports: Hx Anxiety Traumatic Medical History: Reports: Hx Fractures Past Surgical History: Reports: Hx Breast Surgery - Right lumpectomy x2 w/ axillary lymph node diseection., Hx Cholecystectomy, Hx Orthopedic Surgery - Left patellar reconstruction, Hx Tonsillectomy, Hx Tubal Ligation. Denies: Hx Hysterectomy - Immunizations Immunizations up to date: Yes Hx Diphtheria, Pertussis, Tetanus Vaccination: Yes Hx Pneumococcal Vaccination: 01/26/15 Review of Systems - Review of Systems Notes: My Normal Review Basic REVIEW OF SYSTEMS: CONSTITUTIONAL : Denies fever, chills, or sweats. Denies recent illness. EENT: Denies eye, ear, throat, or mouth pain or symptoms. Denies nasal or sinus congestion. CARDIOVASCULAR: Denies chest pain. RESPIRATORY: Difficulty breathing GASTROINTESTINAL: Denies abdominal pain. Denies nausea, vomiting, or diarrhea. MUSCULOSKELETAL: Denies neck or back pain or joint pain or swelling. SKIN: Denies rash or skin lesions. HEMATOLOGIC : Chronic thrombocytopenia and anemia NEUROLOGICAL: Denies altered mental status or loss of consciousness. Denies headache. Denies weakness or paralysis or loss of use of either side. Denies problems with gait or speech. Denies sensory or motor loss. ALL OTHER SYSTEMS REVIEWED AND NEGATIVE. Physical Exam - Vital signs Vitals: Resp Pulse Ox 21 H 96 05/30/18 22:43 05/30/18 22:43 - Notes Notes: General Appearance: Well nourished, alert, cooperative, difficulty breathing, no obvious discomfort. Vitals: reviewed, See vital signs table. Head: no swelling or tenderness to the head Eyes: PERRL, EOMI, Conjuctiva clear Mouth: No decreasd moisture Lungs: Diffuse rhonchi and wheezing. Heart: Tachycardic rate, Regular rythm, No murmur, no rub Abdomen: Normal BS, soft, No rigidity, No abdominal tenderness, No guarding, no rebound, no abdominal masses, no organomegaly Extremities: strength 5/5 in all extremities, good pulses in all extremities, no swelling or tenderness in the extremities, 2+ peripheral edema. Skin: warm, dry, appropriate color, Petechial rash Neuro: speech clear, oriented x 3, normal affect, responds appropriately to questions. Course - Re-evaluation Re-evalutation: 05/31/18 00:[address] Locke on the phone. I asked her if we should go forward with platelets as the patient seems to not make any platelets on her own and therefore every time we give her platelets her platelet count increases for a day and then goes back down to being very low. Dr. Law says that as long as patient is not actively bleeding then we do not have to give her platelets. Her hemoglobin is stable and she does not have any outward signs of bleeding and the patient denies any recent bleeding therefore we will hold platelets. I informed Dr. Law the patient looks worse than when I seen in the past and she is having difficulty breathing this fluid overload. She recommends admission. I went and spoke with the patient. Informed her of our findings. I recommend admission with diastolic diuresis to help get her breathing improved. Patient says says that she prefers to go home. I informed that she goes home that there is a good chance that her breathing will worsen and she will . Patient is completely understanding of this. She realizes that there is cancer and she says that she realizes that she she could any day. She says that she does not want to be hospitalized. She says that if she is going to she would rather be at home with her dog. She says that she still prefers to be treated for the fluid overload. I will give her a dose of Lasix here. I will give her a prescription for Lasix at home. I did not write supplemental potassium as her potassium level is already 4.4 and I am only place her on 20 mg of Lasix a day. She was said to give her Tessalon Perles to help with her co ugh that she says this typically helps a lot with her cough. I have ordered Tessalon Perles. I informed her that she is more than welcome to return to ER anytime is we will be happy to help her in any way we can. Patient shows understanding of this and will be discharged home as she requests. Dictation of this chart was performed using voice recognition software; therefore, there may be some unintended grammatical errors. - Vital Signs Vital signs: Temp Pulse Resp BP Pulse Ox 21 H 109/62 97 05/31/18 00:01 05/31/18 00:00 05/31/18 00:01 - Laboratory Result Diagrams: 05/30/18 23:13 05/30/18 23:13 Laboratory results interpreted by me: 05/30/18 05/30/18 05/31/18 23:13 23:13 00:23 RBC 2.44 L Hgb 8.2 L Hct 24.0 L MCV 98 H MCH 33.8 H RDW 22.2 H Plt Count 8 L* D Band Neutrophils % 2 L VBG pH 7.43 H VBG HCO3 39.4 H Sodium 133.1 L Chloride 94 L Carbon Dioxide 40 H* Anion Gap -1 L Calcium 7.9 L AST 59 H Alkaline Phosphatase 357 H Total Protein 5.7 L Albumin 2.8 L Discharge - Discharge Clinical Impression: Weakness, Shortness of breath, Cancer Pulmonary edema Qualifiers: Chronicity: acute Qualified Code(s): J81.0 - Acute pulmonary edema Condition: Poor Disposition: HOME, SELF-CARE Additional Instructions: You have a lot of excess which is causing difficulty breathing which is probably contributing to weakness. Your platelets are low however you are not bleeding and therefore we will not give you further platelet transfusion. I recommend admission to the hospital tonight to help continue giving medicine to remove fluid and to make sure your breathing improves. We respect your decision to go home. As discussed with you there is a good chance that you could tonight if your breathing got worse or if you started bleeding. Please feel free to return to ER anytime as we are happy to take care of you want to help you in any way we can. Please follow-up with Dr. Law on Friday. Prescriptions: Benzonatate [Tessalon Perle 100 mg Capsule] 100 mg PO Q8HP PRN #30 cap PRN Reason: Furosemide [Lasix 20 mg Tablet] 20 mg PO DAILY #14 tablet Referrals: HINA LAW MD [ACTIVE STAFF] - 06/01/18
[2018-05-30 23:29] LABS: HEMOGLOBIN 8.2 g/dL (12.0-15.5); MEAN CORPUSCULAR HEMOGLOBIN 33.8 pg (27.0-33.4); MEAN CORPUSCULAR HGB CONC 34.4 g/dL (32.0-36.0); MEAN CORPUSCULAR VOLUME 98 fl (80-97); RED BLOOD COUNT 2.44 10^6/uL (3.72-5.28); RED CELL DISTRIBUTION WIDTH 22.2 % (11.5-14.0)
[2018-05-30 23:43] LABS: ALANINE AMINOTRANSFERASE 36 U/L (9-52); ALBUMIN 2.8 g/dL (3.5-5.0); ALKALINE PHOSPHATASE 357 U/L (38-126); ASPARTATE AMINO TRANSFERASE 59 U/L (14-36); BILIRUBIN,DIRECT 0.3 mg/dL (0.0-0.4); BILIRUBIN,TOTAL 0.8 mg/dL (0.2-1.3); BLOOD UREA NITROGEN 12 mg/dL (7-20); CALCIUM 7.9 mg/dL (8.4-10.2); GLUCOSE 95 mg/dL (75-110); POTASSIUM 4.4 mmol/L (3.6-5.0); TOTAL PROTEIN 5.7 g/dL (6.3-8.2)
--- NOTE | 2018-05-30 23:47 | RADIOLOGY REPORT (SQ) ---
EXAM DESCRIPTION: XR CHEST 1 VIEW COMPLETED DATE/TME: 05/30/2018 22:48 CLINICAL HISTORY: 52 years, Female, difficulty breathing COMPARISON: None. NUMBER OF VIEWS: 1 TECHNIQUE: Portable upright chest LIMITATIONS: None. FINDINGS: Heart size is stable. Left-sided [id number] catheter. Osteopenia with coarse interstitial changes and small bilateral effusions. No pneumothorax. IMPRESSION: Bilateral pleural effusions, greater on the left. Coarse interstitial changes bilaterally. copyright 2010 [employer]- All Rights Reserved
[2018-05-30 23:52] LABS: CHLORIDE 94 mmol/L (98-107); SODIUM 133.1 mmol/L (137-145)
[2018-05-30 23:54] LABS: ANION GAP -1 (5-19); CARBON DIOXIDE 40 mmol/L (22-30)
[2018-05-30 23:59] LABS: PLATELET COUNT 8 10^3/uL (150-450)
[2018-05-31 00:07] LABS: ABSOLUTE LYMPHOCYTES# (MANUAL) 1.6 10^3/uL (0.5-4.7); ABSOLUTE MONOCYTES # (MANUAL) 0.5 10^3/uL (0.1-1.4); ABSOLUTE NEUTROPHILS# (MANUAL) 4.4 10^3/uL (1.7-8.2); BAND NEUTROPHILS % (MANUAL) 2 % (3-5); BASOPHILS % (MANUAL) 2 % (0-2); EOSINOPHILS % (MANUAL) 3 % (0-6); LYMPHOCYTES % (MANUAL) 23 % (13-45); MONOCYTES % (MANUAL) 7 % (3-13); NUCLEATED RED BLOOD CELLS 28 /100 WBC (0); SEGMENTED NEUTROPHILS % (MAN) 63 % (42-78); TOTAL CELLS COUNTED 100
[2018-05-31 00:11] LABS: ANISOCYTOSIS 3+; HELMET CELLS 2+; OVALOCYTES 1+; POIKILOCYTOSIS 2+; POLYCHROMASIA 1+; SCHISTOCYTES SLIGHT; TOXIC GRANULATION SLIGHT
[2018-05-31 00:12] LABS: PLATELET COMMENT DECREASED
[2018-05-31] MEDS ORDERED: NORMAL SALINE 250 ML IV PRN (00:12)
[2018-05-31 00:16] LABS: WHITE BLOOD COUNT 5.3 10^3/uL (4.0-10.5)
[2018-05-31] MEDS ORDERED: FUROSEMIDE INJ/PF 20 MG/2 ML SDV IV ONE (00:26)
[2018-05-31 00:32] LABS: VENOUS BLOOD BASE EXCESS 13.6 mmol/L; VENOUS BLOOD HCO3 39.4 mmol/L (20-32); VENOUS BLOOD PCO2 61.5 mmHg (35-63); VENOUS BLOOD PH 7.43 (7.30-7.42)
[2018-05-31] MEDS ORDERED: FUROSEMIDE INJ/PF 40 MG/4 ML SDV IV ONE (00:34)
[2018-05-31] MEDS ORDERED: BENZONATATE 100 MG CAPSULE PO ONE (00:34)
[2018-05-31 01:18] VITALS: BP 108/74
== END 2018-05-31 00:55 | disposition home or self-care (01) ==
LOC: ER 22:35
DX: C50.919 Malignant neoplasm of unspecified site of unspecified female breast (principal); R06.02 Shortness of breath; R53.1 Weakness; F17.200 Nicotine dependence, unspecified, uncomplicated; J44.9 Chronic obstructive pulmonary disease, unspecified
CPT/HCPCS: 36591; 94640; 99285; 96374; 86900; 86901; 36415; 86850; 85025; 80053; 82803; 71045; J3490; J1940; J7620

== ENCOUNTER 2018-06-06 17:41 | Emergency (ER) | payer MEDICAID ==
--- NOTE | 2018-06-06 18:14 | ER Document Report ---
ED Medical Screen (RME) - General Chief Complaint: Abnormal Lab Results Stated Complaint: ABNORMAL LABS Time Seen by Provider: 06/06/18 18:09 Notes: Patient says that she is feeling very tired and weak and feels like she needs a transfusion. She says that she gets transfused with blood and also with platelets a couple times a week. Her most recent infusion was this past Friday. Patient says that she has metastatic breast cancer and her bone marrow no longer makes sufficient platelets and red cells. She is on home oxygen at 3 L. Says she is been running low-grade fevers. TRAVEL OUTSIDE OF THE [place] IN LAST 30 DAYS: No - Related Data Allergies/Adverse Reactions: latex Allergy (Severe, Verified 06/06/18 17:46) blisters,rash morphine [Morphine] Allergy (Severe, Verified 06/06/18 17:46) short of breath Sulfa (Sulfonamide Antibiotics) Allergy (Intermediate, Verified 06/06/18 17:46) rash adhesive Allergy (Verified 06/06/18 17:46) Plastic tape Adverse Reaction (Uncoded 06/06/18 17:46) Blisters Past Medical History - Past Medical History Cardiac Medical History: Denies: Hx Congestive Heart Failure, Hx Coronary Artery Disease, Hx Heart Attack, Hx Hypertension Pulmonary Medical History: Reports: Hx Asthma, Hx COPD, Hx Pneumonia Denies: Hx Bronchitis Neurological Medical History: Denies: Hx Cerebrovascular Accident, Hx Seizures Renal/ Medical History: Denies: Hx Peritoneal Dialysis Malignancy Medical History: Reports: Hx Breast Cancer - Stage IV, mets to L5 and R & L posterior parietal skull. GI Medical History: Reports: Hx Gastroesophageal Reflux Disease. Denies: Hx Cirrhosis, Hx Ulcer Musculoskeltal Medical History: Reports Hx Arthritis - generalized, Reports Hx Musculoskeletal Deformity, Reports Hx Musculoskeletal Trauma Psychiatric Medical History: Reports: Hx Anxiety Traumatic Medical History: Reports: Hx Fractures Past Surgical History: Reports: Hx Breast Surgery - Right lumpectomy x2 w/ axillary lymph node diseection., Hx Cholecystectomy, Hx Orthopedic Surgery - Left patellar reconstruction, Hx Tonsillectomy, Hx Tubal Ligation. Denies: Hx Hysterectomy - Immunizations Immunizations up to date: Yes Hx Diphtheria, Pertussis, Tetanus Vaccination: No History of Influenza Vaccine for 02/2017 - 07/2017 Season: Yes Influenza Administration Date for 02/2017 - 07/2017 Season: 02/16/18 Physical Exam - Vital signs Vitals: Temp Pulse Resp BP Pulse Ox 98.1 F 116 H 16 101/59 L 93 06/06/18 17:49 06/06/18 17:49 06/06/18 17:49 06/06/18 17:49 06/06/18 17:49 Course - Vital Signs Vital signs: Temp Pulse Resp BP Pulse Ox 98.1 F 116 H 16 101/59 L 93 06/06/18 17:49 06/06/18 17:49 06/06/18 17:49 06/06/18 17:49 06/06/18 17:49 Doctor's Discharge - Discharge Referrals: HINA LAW MD [Primary Care Provider] - Follow up as needed
--- NOTE | 2018-06-06 19:01 | ER Document Report ---
ED General - General Chief Complaint: Abnormal Lab Results Stated Complaint: ABNORMAL LABS Time Seen by Provider: 06/06/18 18:09 Notes: Patient is a 52-year-old female with metastatic breast cancer, and thrombocytopenia that presents to the emergency department for chief complaint of low platelets. Patient states that she had outpatient blood work, the demonstrated low platelets, she did receive an outpatient transfusion of red blood cells and platelets earlier this week, she came to the ED, for concern, she states that they were 10,000, after her transfusion, she states they were 4 prior to that. She denies any worsening pain or shortness of breath from her baseline, she has metastatic lesions in her bones and ribs, she also has un derlying COPD. Otherwise she states she is at her baseline, she does feel tired, she did take her pain medication prior to ED arrival, including Lyrica, and oxycodone. She currently rates her chronic pain as a 3 out of 10, describes it as aching in all of her bones. No other complaints at this time. Past Medical History: Metastatic breast carcinoma, chronic thrombocytopenia, chronic anemia, COPD oxygen dependent Past Surgical History: Mastectomy Social History: Current smoker, denies alcohol or drug use. Family History: Reviewed and noncontributory for presenting illness Allergies: Reviewed, see documented allergy list. REVIEW OF SYSTEMS: Other than noted above, the 12 point review of systems was reviewed with the patient and were negative, all pertinent findings are included in the HPI. PHYSICAL EXAMINATION: Vital signs reviewed, nursing noted reviewed. GENERAL: Chronically ill-appearing female, but in no acute distress, appears somewhat fatigued, somnolent HEAD: Atraumatic, normocephalic. EYES: Eyes appear normal, extraocular movements intact, sclera anicteric, conjunctiva are normal. ENT: nares patent, oropharynx clear without exudates. Moist mucous membranes. NECK: Normal range of motion, supple without lymphadenopathy LUNGS: Coarse lung sounds bilaterally, no acute respiratory distress HEART: heart rate tachycardic, regular rhythm, no audible murmurs. ABDOMEN: Soft, nontender, normoactive bowel sounds. No rebound, guarding, or rigidity. No masses appreciated. EXTREMITIES: Nontender, good range of motion, 1+ bilateral lower extremity edema, chronic per patient NEUROLOGICAL: No focal neurological deficits. Moves all extremities spontaneously Motor and sensory grossly intact on exam. PSYCH: Normal mood, normal affect. SKIN: Warm, Dry, normal turgor, stasis dermatitis changes noticed to the lower extremities, chronic and unchanged TRAVEL OUTSIDE OF THE [place] IN LAST 30 DAYS: No - Related Data Allergies/Adverse Reactions: latex Allergy (Severe, Verified 06/06/18 17:46) blisters,rash morphine [Morphine] Allergy (Severe, Verified 06/06/18 17:46) short of breath Sulfa (Sulfonamide Antibiotics) Allergy (Intermediate, Verified 06/06/18 17:46) rash adhesive Allergy (Verified 06/06/18 17:46) Plastic tape Adverse Reaction (Uncoded 06/06/18 17:46) Blisters Past Medical History - Social History Smoking Status: Current Every Day Smoker Chew tobacco use (# tins/day): No Frequency of alcohol use: None Drug Abuse: None Family History: None, Reviewed & Not Pertinent Patient has suicidal ideation: No Patient has homicidal ideation: No - Past Medical History Cardiac Medical History: Denies: Hx Congestive Heart Failure, Hx Coronary Artery Disease, Hx Heart Attack, Hx Hypertension Pulmonary Medical History: Reports: Hx Asthma, Hx COPD, Hx Pneumonia Denies: Hx Bronchitis Neurological Medical History: Denies: Hx Cerebrovascular Accident, Hx Seizures Renal/ Medical History: Denies: Hx Peritoneal Dialysis Malignancy Medical History: Reports: Hx Breast Cancer - Stage IV, mets to L5 and R & L posterior parietal skull. GI Medical History: Reports: Hx Gastroesophageal Reflux Disease. Denies: Hx Cirrhosis, Hx Ulcer Musculoskeletal Medical History: Reports Hx Arthritis - generalized, Reports Hx Musculoskeletal Deformity, Reports Hx Musculoskeletal Trauma Psychiatric Medical History: Reports: Hx Anxiety Traumatic Medical History: Reports: Hx Fractures Past Surgical History: Reports: Hx Breast Surgery - Right lumpectomy x2 w/ axillary lymph node diseection., Hx Cholecystectomy, Hx Orthopedic Surgery - Left patellar reconstruction, Hx Tonsillectomy, Hx Tubal Ligation. Denies: Hx Hysterectomy - Immunizations Immunizations up to date: Yes Hx Diphtheria, Pertussis, Tetanus Vaccination: No Hx Pneumococcal Vaccination: 01/26/15 Physical Exam - Vital signs Vitals: Temp Pulse Resp BP Pulse Ox 98.1 F 116 H 16 101/59 L 93 06/06/18 17:49 06/06/18 17:49 06/06/18 17:49 06/06/18 17:49 06/06/18 17:49 Course - Re-evaluation Re-evalutation: Patient seen and examined, vital signs reviewed, initially the patient was somnolent, but she states that she took her Lyrica and oxycodone just prior to ED arrival, and she was sleeping and her family woke her up to bring her to the hospital, she is more arousable my repeat evaluation, was alert, and wishing to go home after blood work was drawn and demonstrated consistent thrombocytopenia from her prior and recent blood work, and her anemia was actually improved. This patient is known well to me, she is terminal when it comes to her cancer, it has been discussed with her by myself and other providers, that she should pursue hospice care, but she states she is not ready for that, and is currently still seeing her oncologist, that continues to give her transfusions of platelets and packed red blood cells as an outpatient. I discussed with her that she is at her baseline, and she is not having signs of any bleeding, she denies having hematuria, black stools. Patient was agreeable to plan of care and discharged home, on her chronic medications. - Vital Signs Vital signs: Temp Pulse Resp BP Pulse Ox 98.1 F 116 H 24 H 103/76 100 06/06/18 17:49 06/06/18 17:49 06/06/18 19:06 06/06/18 19:06 06/06/18 19:06 - Laboratory Result Diagrams: 06/06/18 18:25 06/06/18 18:25 Laboratory results interpreted by me: 06/06/18 06/06/18 06/06/18 18:25 18:25 18:25 RBC 2.48 L Hgb 8.4 L Hct 24.6 L MCV 99 H MCH 33.8 H RDW 23.0 H Plt Count 10 L* Basophils % (Manual) 3 H Metamyelocytes % 2 H Sodium 134.8 L Chloride 93 L Carbon Dioxide 43 H* Anion Gap -1 L Glucose 112 H Calcium 7.9 L AST 53 H Alkaline Phosphatase 329 H Total Protein 5.8 L Albumin 2.8 L Urine Urobilinogen 4.0 H Urine Ascorbic Acid 40 H Discharge - Discharge Clinical Impression: Thrombocytopenia Anemia Qualifiers: Anemia type: unspecified type Qualified Code(s): D64.9 - Anemia, unspecified Condition: Stable Disposition: HOME, SELF-CARE Instructions: Anemia ([facility]) Additional Instructions: Please follow-up with your oncologist, regarding your low platelet count, if you have any worsening symptoms, severe headache, or any other concern, do not hesitate to return to the emergency department. Referrals: HINA LAW MD [Primary Care Provider] - Follow up in 3-5 days
[2018-06-06 19:03] LABS: HEMATOCRIT 24.6 % (36.0-47.0); HEMOGLOBIN 8.4 g/dL (12.0-15.5); MEAN CORPUSCULAR HEMOGLOBIN 33.8 pg (27.0-33.4); MEAN CORPUSCULAR HGB CONC 34.1 g/dL (32.0-36.0); MEAN CORPUSCULAR VOLUME 99 fl (80-97); RED BLOOD COUNT 2.48 10^6/uL (3.72-5.28); WHITE BLOOD COUNT 8.3 10^3/uL (4.0-10.5)
[2018-06-06 19:05] LABS: APPEARANCE,URINE SLIGHTLY-CLOUDY; BILIRUBIN,URINE NEGATIVE (NEGATIVE); COLOR,URINE YELLOW; GLUCOSE, URINE NEGATIVE (NEGATIVE); KETONES,URINE NEGATIVE (NEGATIVE); LEUKOCYTE ESTERASE,URINE NEGATIVE (NEGATIVE); NITRITE,URINE NEGATIVE (NEGATIVE); PROTEIN,URINE NEGATIVE (NEGATIVE); URINE SPECIFIC GRAVITY 1.014
[2018-06-06 19:10] LABS: PLATELET COUNT 10 10^3/uL (150-450)
[2018-06-06 19:14] LABS: ALANINE AMINOTRANSFERASE 27 U/L (9-52); ALBUMIN 2.8 g/dL (3.5-5.0); ALKALINE PHOSPHATASE 329 U/L (38-126); ASPARTATE AMINO TRANSFERASE 53 U/L (14-36); BILIRUBIN,DIRECT 0.3 mg/dL (0.0-0.4); BILIRUBIN,TOTAL 0.8 mg/dL (0.2-1.3); BLOOD UREA NITROGEN 13 mg/dL (7-20); CALCIUM 7.9 mg/dL (8.4-10.2); CHLORIDE 93 mmol/L (98-107); GLUCOSE 112 mg/dL (75-110); LIPASE 32.1 U/L (23-300); POTASSIUM 3.9 mmol/L (3.6-5.0); SODIUM 134.8 mmol/L (137-145); TOTAL PROTEIN 5.8 g/dL (6.3-8.2)
[2018-06-06 19:24] LABS: ABSOLUTE LYMPHOCYTES# (MANUAL) 1.7 10^3/uL (0.5-4.7); ABSOLUTE MONOCYTES # (MANUAL) 0.4 10^3/uL (0.1-1.4); ABSOLUTE NEUTROPHILS# (MANUAL) 5.8 10^3/uL (1.7-8.2); BAND NEUTROPHILS % (MANUAL) 3 % (3-5); BASOPHILS % (MANUAL) 3 % (0-2); EOSINOPHILS % (MANUAL) 1 % (0-6); LYMPHOCYTES % (MANUAL) 21 % (13-45); METAMYELOCYTES % (MANUAL) 2 % (0); MONOCYTES % (MANUAL) 5 % (3-13); NUCLEATED RED BLOOD CELLS 25 /100 WBC (0); SEGMENTED NEUTROPHILS % (MAN) 65 % (42-78); TOTAL CELLS COUNTED 100
[2018-06-06 19:29] LABS: ANISOCYTOSIS 3+; OVALOCYTES SLIGHT; PLATELET COMMENT DECREASED; POIKILOCYTOSIS SLIGHT; POLYCHROMASIA 1+
[2018-06-06 19:32] LABS: ANION GAP -1 (5-19)
[2018-06-06 19:38] LABS: CARBON DIOXIDE 43 mmol/L (22-30)
[2018-06-06 20:12] VITALS: BP 103/76
== END 2018-06-06 20:12 | disposition home or self-care (01) ==
LOC: ER 17:41
DX: D69.6 Thrombocytopenia, unspecified (principal); D64.9 Anemia, unspecified; C50.919 Malignant neoplasm of unspecified site of unspecified female breast; C79.51 Secondary malignant neoplasm of bone; J44.9 Chronic obstructive pulmonary disease, unspecified; F17.200 Nicotine dependence, unspecified, uncomplicated; R00.0 Tachycardia, unspecified; R53.83 Other fatigue; Z99.81 Dependence on supplemental oxygen; Z79.891 Long term (current) use of opiate analgesic; Z79.899 Other long term (current) drug therapy; Z91.041 Radiographic dye allergy status; Z88.5 Allergy status to narcotic agent; Z88.2 Allergy status to sulfonamides; Z91.048 Other nonmedicinal substance allergy status
CPT/HCPCS: 36415; 80053; 81001; 83690; 85025; 99284

== ENCOUNTER 2018-06-10 00:12 | Emergency (ER) | payer MEDICAID ==
[2018-06-10] MEDS ORDERED: IPRATROPIUM/ALBUTEROL 0.5-2.5 MG/3 ML AMPUL NEB ONE (01:13)
[2018-06-10] MEDS ORDERED: PREDNISONE 20 MG TABLET PO ONE (01:13)
[2018-06-10] MEDS ORDERED: ALBUTEROL SULFATE 0.083% NEB 2.5 MG/3 ML AMPUL NEB SCH (01:28)
--- NOTE | 2018-06-10 03:59 | RADIOLOGY REPORT (SQ) ---
EXAM DESCRIPTION: XR CHEST 1 VIEW COMPLETED DATE/TME: 06/10/2018 01:13 CLINICAL HISTORY: 52 years, Female, DIFFICULTY BREATHING COMPARISON: 05/30/2018 chest NUMBER OF VIEWS: 1 TECHNIQUE: Portable chest LIMITATIONS: None. FINDINGS: Heart size is stable. Small bilateral pleural effusions, as before with coarse bilateral interstitial changes. [id number] catheter in place. No pneumothorax. IMPRESSION: Small bilateral pleural effusions and coarse interstitial changes, similar to the prior exam copyright 2010 [employer]- All Rights Reserved
[2018-06-10 04:44] LABS: HEMOGLOBIN 9.1 g/dL (12.0-15.5); MEAN CORPUSCULAR HGB CONC 33.9 g/dL (32.0-36.0); MEAN CORPUSCULAR VOLUME 97 fl (80-97); RED BLOOD COUNT 2.77 10^6/uL (3.72-5.28); RED CELL DISTRIBUTION WIDTH 21.6 % (11.5-14.0)
[2018-06-10 05:00] LABS: ALANINE AMINOTRANSFERASE 43 U/L (9-52); ALKALINE PHOSPHATASE 305 U/L (38-126); ASPARTATE AMINO TRANSFERASE 104 U/L (14-36); BILIRUBIN,DIRECT 0.4 mg/dL (0.0-0.4); BILIRUBIN,TOTAL 0.8 mg/dL (0.2-1.3); BLOOD UREA NITROGEN 14 mg/dL (7-20); CALCIUM 8.2 mg/dL (8.4-10.2); CREATINE KINASE 35 U/L (30-135); GLUCOSE 91 mg/dL (75-110); POTASSIUM 4.2 mmol/L (3.6-5.0)
[2018-06-10 05:07] LABS: ABSOLUTE LYMPHOCYTES# (MANUAL) 1.2 10^3/uL (0.5-4.7); ABSOLUTE MONOCYTES # (MANUAL) 0.6 10^3/uL (0.1-1.4); ABSOLUTE NEUTROPHILS# (MANUAL) 6.2 10^3/uL (1.7-8.2); BAND NEUTROPHILS % (MANUAL) 9 % (3-5); BASOPHILS % (MANUAL) 0 % (0-2); EOSINOPHILS % (MANUAL) 0 % (0-6); MONOCYTES % (MANUAL) 8 % (3-13); SEGMENTED NEUTROPHILS % (MAN) 67 % (42-78); TOTAL CELLS COUNTED 100
[2018-06-10 05:11] LABS: ANISOCYTOSIS 3+; POLYCHROMASIA SLIGHT
[2018-06-10 05:12] LABS: CREATINE KINASE MB 0.66 ng/mL (<4.55); LYMPHOCYTES % (MANUAL) 16 % (13-45); NUCLEATED RED BLOOD CELLS 62 /100 WBC (0); PLATELET COMMENT DECREASED; WHITE BLOOD COUNT 6.7 10^3/uL (4.0-10.5)
[2018-06-10 05:15] LABS: PLATELET COUNT 12 10^3/uL (150-450)
[2018-06-10 05:21] LABS: TROPONIN I 0.056 ng/mL
[2018-06-10 05:36] LABS: CHLORIDE 96 mmol/L (98-107); SODIUM 137.2 mmol/L (137-145)
[2018-06-10 05:40] LABS: ANION GAP -4 (5-19)
[2018-06-10 05:43] LABS: CARBON DIOXIDE 45 mmol/L (22-30)
[2018-06-10 06:30] VITALS: BP 113/70
[2018-06-10 06:52] LABS: APPEARANCE,URINE SLIGHTLY-CLOUDY; BILIRUBIN,URINE NEGATIVE (NEGATIVE); COLOR,URINE YELLOW; GLUCOSE, URINE NEGATIVE (NEGATIVE); KETONES,URINE NEGATIVE (NEGATIVE); LEUKOCYTE ESTERASE,URINE NEGATIVE (NEGATIVE); NITRITE,URINE NEGATIVE (NEGATIVE); PROTEIN,URINE 30 mg/dL (NEGATIVE); URINE SPECIFIC GRAVITY 1.016
[2018-06-10 07:01] LABS: ARTERIAL BLOOD BASE EXCESS 12.2 mmol/L; ARTERIAL BLOOD FIO2 4LPM; ARTERIAL BLOOD H2CO3 1.85 mmol/L (1.05-1.35); ARTERIAL BLOOD HCO3 38.5 mmol/L (20-24); ARTERIAL BLOOD O2 SATURATION 88.9 % (94-98); ARTERIAL BLOOD PCO2 61.6 mmHg (35-45); ARTERIAL BLOOD PH 7.41 (7.35-7.45); ARTERIAL BLOOD PO2 56.6 mmHg (80-100); ARTERIAL BLOOD TOTAL CO2 40.4 mmol/L (21-25)
--- NOTE | 2018-06-10 07:07 | ER Document Report ---
ED General - General Chief Complaint: Breathing Difficulty Stated Complaint: SHORTNESS OF BREATH Time Seen by Provider: 06/10/18 06:06 Primary Care Provider: HNIA LAW MD [Primary Care Provider] - Follow up as needed TRAVEL OUTSIDE OF THE [place] IN LAST 30 DAYS: No - HPI Notes: Patient is a 52-year-old female that presents to the emergency department for chief complaint of shortness of breath. Patient reports she left [facility] AGAINST MEDICAL ADVICE yesterday. She was admitted over there for sepsis likely from her port. She states that the nursing staff was not being nice to her which is why she left. Since getting home she has had increased shortness of breath. Patient is currently on chemotherapy and sees Dr. Law for breast cancer. She is on oxygen at home. She has known metastasis to her lungs. Past Medical History: Breast cancer with metastasis Past Surgical History: Lumpectomy, MediPort Social History: Denies smoking and alcohol Family History: Reviewed and noncontributory for presenting illness Allergies: Reviewed, see documented allergy list. REVIEW OF SYSTEMS: CONSTITUTIONAL : No fever No chills No diaphoresis No recent illness EENT: No vision changes No congestion No sore throat CARDIOVASCULAR: No chest pain No palpitations RESPIRATORY: shortness of breath cough difficulty breathing GASTROINTESTINAL: No abdominal pain No nausea No vomiting No diarrhea GENITOURINARY: No dysuria No hematuria No difficulty urinating MUSCULOSKELETAL: No back pain No leg pain No arm pain SKIN: No rashes No lesions LYMPHATIC: No swollen, enlarged glands. NEUROLOGICAL: No lightheadedness No headache No weakness No paresthesias PSYCHIATRIC: No anxiety No depression PHYSICAL EXAMINATION: Vital signs reviewed, nursing noted reviewed. GENERAL: Well-appearing, well-nourished and in no acute distress. HEAD: Atraumatic, normocephalic. EYES: Eyes appear normal, extraocular movements intact, sclera anicteric, conjunctiva are normal. ENT: nares patent, oropharynx clear without exudates. Moist mucous membranes. NECK: Normal range of motion, supple without lymphadenopathy LUNGS: Lungs diminished bilaterally, tachypnea, moderate accessory muscle use, prolonged expiratory phase HEART: tachycardic rate and regular rhythm without murmurs ABDOMEN: Soft, nontender, normoactive bowel sounds. No rebound, guarding, or rigidity. No masses appreciated. EXTREMITIES: Nontender, good range of motion, +2 bilateral lower extremity pitting edema NEUROLOGICAL: No focal neurological deficits. Moves all extremities spontaneously Motor and sensory grossly intact on exam. PSYCH: Agitated mood, normal affect. SKIN: Warm, Dry, erythema to bilateral lower extremities consistent with venous stasis color changes - Related Data Allergies/Adverse Reactions: latex Allergy (Severe, Verified 06/06/18 17:46) blisters,rash morphine [Morphine] Allergy (Severe, Verified 06/06/18 17:46) short of breath Sulfa (Sulfonamide Antibiotics) Allergy (Intermediate, Verified 06/06/18 17:46) rash adhesive Allergy (Verified 06/06/18 17:46) Plastic tape Adverse Reaction (Uncoded 06/06/18 17:46) Blisters Past Medical History - Social History Smoking Status: Current Every Day Smoker Frequency of alcohol use: None Drug Abuse: None Family History: None, Reviewed & Not Pertinent Patient has suicidal ideation: No Patient has homicidal ideation: No - Past Medical History Cardiac Medical History: Denies: Hx Congestive Heart Failure, Hx Coronary Artery Disease, Hx Heart Attack, Hx Hypertension Pulmonary Medical History: Reports: Hx Asthma, Hx COPD, Hx Pneumonia Denies: Hx Bronchitis Neurological Medical History: Denies: Hx Cerebrovascular Accident, Hx Seizures Renal/ Medical History: Denies: Hx Peritoneal Dialysis Malignancy Medical History: Reports: Hx Breast Cancer - Stage IV, mets to L5 and R & L posterior parietal skull. GI Medical History: Reports: Hx Gastroesophageal Reflux Disease. Denies: Hx Cirrhosis, Hx Ulcer Musculoskeletal Medical History: Reports Hx Arthritis - generalized, Reports Hx Musculoskeletal Deformity, Reports Hx Musculoskeletal Trauma Psychiatric Medical History: Reports: Hx Anxiety Traumatic Medical History: Reports: Hx Fractures Past Surgical History: Reports: Hx Breast Surgery - Right lumpectomy x2 w/ axillary lymph node diseection., Hx Cholecystectomy, Hx Orthopedic Surgery - Left patellar reconstruction, Hx Tonsillectomy, Hx Tubal Ligation. Denies: Hx Hysterectomy - Immunizations Immunizations up to date: Yes Hx Diphtheria, Pertussis, Tetanus Vaccination: No Hx Pneumococcal Vaccination: 01/26/15 Physical Exam - Vital signs Vitals: Temp Pulse Resp BP Pulse Ox 98.3 F 120 H 20 115/59 L 100 06/10/18 00:29 06/10/18 00:29 06/10/18 00:29 06/10/18 00:29 06/10/18 00:29 Course - Re-evaluation Re-evalutation: 06/10/18 07:08 Vitals reviewed. Nursing notes reviewed. Patient is tachycardic and eating Sirs criteria. She appears to be using a moderate amount of accessory muscles and has elevated CO2. I recommended BiPAP for her acute respiratory failure. Patient also was recommended antibiotics for likely sepsis which could potentially be from her MediPort. Patient is refusing BiPAP. She is currently on 4 L nasal cannula oxygen and has an O2 of 89%. I recommended at least increasing her oxygen to 6 L nasal cannula which she is also refusing. I did discuss with the patient the risks of refusing appropriate medical care and discuss CODE STATUS with her. She does wish to be a full code. Patient is agitated that she has been waiting in the emergency room for so long. She states she would like to leave and go home. She states that she understands by doing that she may from her hypercapnic respiratory failure. Patient's is at bedside and states that if she wants to leave she can make her own medical decisions. She does have capacity and understands risks and benefits. I recommended admission to the hospital either here or at another facility in order to attempt to get her to agree to be medically managed. Patient does not wish to be admitted to the hospital. She would like to sign out AGAINST MEDICAL ADVICE. She was told that she can return to the emergency room at any point in time for further medical management. I recommended that she seek medical attention at least by her primary care doctor today. Patient already has a p rescription for antibiotics that was given to her when she left [facility] yesterday AMA which she was encouraged to continue taking. Laboratory 06/10/18 06/10/18 06/10/18 04:08 04:08 04:08 WBC 6.7 RBC 2.77 L Hgb 9.1 L Hct 27.0 L MCV 97 MCH 33.0 MCHC 33.9 RDW 21.6 H Plt Count 12 L* Total Counted 100 Seg Neutrophils % Not Reportable Seg Neuts % (Manual) 67 Band Neutrophils % 9 H Lymphocytes % Not Reportable Lymphocytes % (Manual) 16 Monocytes % Not Reportable Monocytes % (Manual) 8 Eosinophils % Not Reportable Eosinophils % (Manual) 0 Basophils % Not Reportable Basophils % (Manual) 0 Promyelocytes % Not Reportable Absolute Neutrophils Not Reportable Abs Neuts (Manual) 6.2 Absolute Lymphocytes Not Reportable Abs Lymphs (Manual) 1.2 Absolute Monocytes Not Reportable Abs Monocytes (Manual) 0.6 Absolute Eosinophils Not Reportable Absolute Eos (Manual) 0.0 Absolute Basophils Not Reportable Abs Basophils (Manual) 0.0 Nucleated RBCs 62 Platelet Comment DECREASED Polychromasia SLIGHT Anisocytosis 3+ Carbonic Acid HCO3/H2CO3 Ratio ABG pH ABG pCO2 ABG pO2 ABG HCO3 ABG Total CO2 ABG O2 Saturation ABG Base Excess FiO2 Sodium 137.2 Potassium 4.2 Chloride 96 L Carbon Dioxide 45 H* Anion Gap -4 L BUN 14 Creatinine 0.76 Est GFR ( Amer) > 60 Est GFR (Non-Af Amer) > 60 Glucose 91 Calcium 8.2 L Total Bilirubin 0.8 Direct Bilirubin 0.4 Neonat Total Bilirubin Not Reportable Neonat Direct Bilirubin Not Reportable Neonat Indirect Bili Not Reportable AST 104 H ALT 43 Alkaline Phosphatase 305 H Creatine Kinase 35 CK-MB (CK-2) 0.66 Troponin I 0.056 NT-Pro-B Natriuret Pep 3290 H Total Protein 6.0 L Albumin 3.0 L Urine Color Urine Appearance Urine pH Ur Specific [place] Urine Protein Urine Glucose (UA) Urine Ketones Urine Blood Urine Nitrite Urine Bilirubin Urine Urobilinogen Ur Leukocyte Esterase Urine WBC (Auto) Urine RBC (Auto) Squamous Epi Cells Auto Urine Mucus (Auto) Urine Ascorbic Acid 06/10/18 06/10/18 06:11 06:40 WBC RBC Hgb Hct MCV MCH MCHC RDW Plt Count Total Counted Seg Neutrophils % Seg Neuts % (Manual) Band Neutrophils % Lymphocytes % Lymphocytes % (Manual) Monocytes % Monocytes % (Manual) Eosinophils % Eosinophils % (Manual) Basophils % Basophils % (Manual) Promyelocytes % Absolute Neutrophils Abs Neuts (Manual) Absolute Lymphocytes Abs Lymphs (Manual) Absolute Monocytes Abs Monocytes (Manual) Absolute Eosinophils Absolute Eos (Manual) Absolute Basophils Abs Basophils (Manual) Nucleated RBCs Platelet Comment Polychromasia Anisocytosis Carbonic Acid 1.85 H HCO3/H2CO3 Ratio 20:1 ABG pH 7.41 ABG pCO2 61.6 H ABG pO2 56.6 L ABG HCO3 38.5 H ABG Total CO2 40.4 H ABG O2 Saturation 88.9 L ABG Base Excess 12.2 FiO2 4LPM Sodium Potassium Chloride Carbon Dioxide Anion Gap BUN Creatinine Est GFR ( Amer) Est GFR (Non-Af Amer) Glucose Calcium Total Bilirubin Direct Bilirubin Neonat Total Bilirubin Neonat Direct Bilirubin Neonat Indirect Bili AST ALT Alkaline Phosphatase Creatine Kinase CK-MB (CK-2) Troponin I NT-Pro-B Natriuret Pep Total Protein Albumin Urine Color YELLOW Urine Appearance SLIGHTLY-CLOUDY Urine pH 7.0 Ur Specific [place] 1.016 Urine Protein 30 H Urine Glucose (UA) NEGATIVE Urine Ketones NEGATIVE Urine Blood NEGATIVE Urine Nitrite NEGATIVE Urine Bilirubin NEGATIVE Urine Urobilinogen 2.0 H Ur Leukocyte Esterase NEGATIVE Urine WBC (Auto) 1 Urine RBC (Auto) 0 Squamous Epi Cells Auto 1 Urine Mucus (Auto) RARE Urine Ascorbic Acid 40 H Chest X-Ray 06/10/18 01:13 IMPRESSION: Small bilateral pleural effusions and coarse interstitial changes, similar to the prior exam copyright 2011 [employer]- All Rights Reserved - Vital Signs Vital signs: Temp Pulse Resp BP Pulse Ox 98.3 F 120 H 16 113/70 92 06/10/18 00:29 06/10/18 00:29 06/10/18 06:01 06/10/18 06:01 06/10/18 05:01 - Laboratory Result Diagrams: 06/10/18 04:08 06/10/18 04:08 Laboratory results interpreted by me: 06/10/18 06/10/18 06/10/18 04:08 04:08 04:08 RBC 2.77 L Hgb 9.1 L Hct 27.0 L RDW 21.6 H Plt Count 12 L* Band Neutrophils % 9 H Chloride 96 L Carbon Dioxide 45 H* Anion Gap -4 L Calcium 8.2 L AST 104 H Alkaline Phosphatase 305 H NT-Pro-B Natriuret Pep 3290 H Total Protein 6.0 L Albumin 3.0 L Urine Protein Urine Urobilinogen Urine Ascorbic Acid 06/10/18 06:11 RBC Hgb Hct RDW Plt Count Band Neutrophils % Chloride Carbon Dioxide Anion Gap Calcium AST Alkaline Phosphatase NT-Pro-B Natriuret Pep Total Protein Albumin Urine Protein 30 H Urine Urobilinogen 2.0 H Urine Ascorbic Acid 40 H - EKG Interpretation by Me Additional EKG results interpreted by me: 06/10/18 07:08 Interpreted by myself [id number]: Sinus tachycardia, rate 106, normal axis, no ectopy, no STEMI Discharge - Discharge Clinical Impression: Bilateral pleural effusion Respiratory failure with hypercapnia Qualifiers: Chronicity: acute on chronic Qualified Code(s): J96.22 - Acute and chronic respiratory failure with hypercapnia Sepsis Qualifiers: Sepsis type: sepsis due to unspecified organism Qualified Code(s): A41.9 - Sep sis, unspecified organism Anemia Qualifiers: Anemia type: unspecified type Qualified Code(s): D64.9 - Anemia, unspecified Disposition: AGAINST MEDICAL ADVICE Referrals: HINA LAW MD [Primary Care Provider] - Follow up as needed
--- NOTE | 2018-06-10 07:28 | EKG REPORT ---
SEVERITY:- BORDERLINE ECG - SINUS OR ECTOPIC ATRIAL TACHYCARDIA PROBABLE LEFT ATRIAL ABNORMALITY : Confirmed by: Alexia Campos MD 10-Jun-2018 07:27:21
[2018-06-10 11:01] LABS: PATH REVIEW PATHOLOGIST REVIEWED
== END 2018-06-10 07:09 | disposition left against medical advice (07) ==
LOC: ER 00:12
DX: A41.9 Sepsis, unspecified organism (principal); J96.22 Acute and chronic respiratory failure with hypercapnia; C50.919 Malignant neoplasm of unspecified site of unspecified female breast; C78.00 Secondary malignant neoplasm of unspecified lung; Z79.899 Other long term (current) drug therapy; Z99.81 Dependence on supplemental oxygen; D64.9 Anemia, unspecified; J90 Pleural effusion, not elsewhere classified; R05 Cough; R00.0 Tachycardia, unspecified; L53.9 Erythematous condition, unspecified; J44.9 Chronic obstructive pulmonary disease, unspecified; F17.200 Nicotine dependence, unspecified, uncomplicated; Z88.2 Allergy status to sulfonamides; Z91.040 Latex allergy status; Z88.5 Allergy status to narcotic agent; Z87.01 Personal history of pneumonia (recurrent); Z53.20 Procedure and treatment not carried out because of patient's decision for unspecified reasons
CPT/HCPCS: 93005; 94640; 99285; 36415; 82553; 82803; 82550; 85025; 80053; 81001; 84484; 83880; 71045; 93010; J7620

== ENCOUNTER 2018-06-10 11:26 | Emergency (ER) | payer MEDICAID ==
[2018-06-10 12:04] LABS: VENOUS BLOOD BASE EXCESS 11.7 mmol/L; VENOUS BLOOD HCO3 37.9 mmol/L (20-32); VENOUS BLOOD PCO2 61.7 mmHg (35-63); VENOUS BLOOD PH 7.41 (7.30-7.42)
[2018-06-10 12:06] LABS: HEMATOCRIT 25.4 % (36.0-47.0); HEMOGLOBIN 8.8 g/dL (12.0-15.5); MEAN CORPUSCULAR HEMOGLOBIN 33.9 pg (27.0-33.4); MEAN CORPUSCULAR HGB CONC 34.6 g/dL (32.0-36.0); MEAN CORPUSCULAR VOLUME 98 fl (80-97); RED CELL DISTRIBUTION WIDTH 21.7 % (11.5-14.0)
[2018-06-10 12:11] LABS: INTERNATIONAL RATION (INR) 0.96; PROTHROMBIN TIME 13.3 SEC (11.4-15.4)
[2018-06-10 12:19] LABS: ALANINE AMINOTRANSFERASE 32 U/L (9-52); ALKALINE PHOSPHATASE 277 U/L (38-126); ASPARTATE AMINO TRANSFERASE 113 U/L (14-36); BILIRUBIN,DIRECT 0.5 mg/dL (0.0-0.4); BLOOD UREA NITROGEN 13 mg/dL (7-20); CALCIUM 8.2 mg/dL (8.4-10.2); GLUCOSE 108 mg/dL (75-110); POTASSIUM 4.6 mmol/L (3.6-5.0); TOTAL PROTEIN 6.1 g/dL (6.3-8.2)
[2018-06-10 12:24] LABS: CARBON DIOXIDE 39 mmol/L (22-30); CHLORIDE 96 mmol/L (98-107); SODIUM 137.1 mmol/L (137-145)
[2018-06-10 12:25] LABS: ANION GAP 2 (5-19)
[2018-06-10] MEDS ORDERED: RINGERS SOLUTION,LACTATED 1,000 ML IV ONE (12:35)
--- NOTE | 2018-06-10 12:36 | ER Document Report ---
ED General - General Chief Complaint: Breathing Difficulty Stated Complaint: DIFFICULTY BREATHING Time Seen by Provider: 06/10/18 11:35 Primary Care Provider: HINA LAW MD [Primary Care Provider] - Follow up as needed Notes: Patient is a 52-year-old female with extensive past medical history including metastatic breast carcinoma, COPD, and severe thrombus cytopenia that presents to the emergency department for chief complaint of shortness of breath and pleuritic chest pain. She recently left AMA after being admitted to [facility], she states she had to get home to help her dogs, but today she found some that can help her dogs, she knows that she is sick and she needs to get be in the hospital. She states she is been more short of breath and had to increase her oxygen to 6 L to maintain a pulse ox above 90%, she is normally on 3 L chronically 24 hours a day. She is been having a cough, without change in her productive sputum. She also felt pain with taking a deep breath. She does have known metastatic lesions in her lungs. She is also has what appears to be bilateral effusions. Reports from [facility] were reviewed, and she was being treated for pneumonia at that time and the patient reports that they were concerned about possible sepsis from the patient's Mediport. As she has been receiving multiple transfusions. Past Medical History: Metastatic breast carcinoma, chronic thrombocytopenia, chronic anemia, COPD oxygen dependent Past Surgical History: Mastectomy Social History: Current smoker, denies alcohol or drug use. Family History: Reviewed and noncontributory for presenting illness Allergies: Reviewed, see documented allergy list. REVIEW OF SYSTEMS: Other than noted above, the 12 point review of systems was reviewed with the patient and were negative, all pertinent findings are included in the HPI. PHYSICAL EXAMINATION: Vital signs reviewed, nursing noted reviewed. GENERAL: Chronically ill-appearing female, but in no acute distress, appears somewhat fatigued, somnolent HEAD: Atraumatic, normocephalic. EYES: Eyes appear normal, extraocular movements intact, sclera anicteric, conjunctiva are normal. ENT: nares patent, oropharynx clear without exudates. Moist mucous membranes. NECK: Normal range of motion, supple without lymphadenopathy LUNGS: Coarse lung sounds bilaterally, no acute respiratory distress HEART: heart rate tachycardic, regular rhythm, no audible murmurs. ABDOMEN: Soft, nontender, normoactive bowel sounds. No rebound, guarding, or rigidity. No masses appreciated. EXTREMITIES: Nontender, good range of motion, 1+ bilateral lower extremity edema, chronic per patient NEUROLOGICAL: No focal neurological deficits. Moves all extremities spontaneously Motor and sensory grossly intact on exam. PSYCH: Mildly agitated, but answering questions appropriately SKIN: Warm, Dry, normal turgor, stasis dermatitis changes noticed to the lower extremities, chronic and unchanged TRAVEL OUTSIDE OF THE [place] IN LAST 30 DAYS: No - Related Data Allergies/Adverse Reactions: latex Allergy (Severe, Verified 06/06/18 17:46) blisters,rash morphine [Morphine] Allergy (Severe, Verified 06/06/18 17:46) short of breath Sulfa (Sulfonamide Antibiotics) Allergy (Intermediate, Verified 06/06/18 17:46) rash adhesive Allergy (Verified 06/06/18 17:46) Plastic tape Adverse Reaction (Uncoded 06/06/18 17:46) Blisters Past Medical History - Social History Smoking Status: Current Every Day Smoker Family History: None, Reviewed & Not Pertinent - Past Medical History Cardiac Medical History: Denies: Hx Congestive Heart Failure, Hx Coronary Artery Disease, Hx Heart Attack, Hx Hypertension Pulmonary Medical History: Reports: Hx Asthma, Hx COPD, Hx Pneumonia Denies: Hx Bronchitis Neurological Medical History: Denies: Hx Cerebrovascular Accident, Hx Seizures Renal/ Medical History: Denies: Hx Peritoneal Dialysis Malignancy Medical History: Reports: Hx Breast Cancer - Stage IV, mets to L5 and R & L posterior parietal skull. GI Medical History: Reports: Hx Gastroesophageal Reflux Disease. Denies: Hx Cirrhosis, Hx Ulcer Musculoskeletal Medical History: Reports Hx Arthritis - generalized, Reports Hx Musculoskeletal Deformity, Reports Hx Musculoskeletal Trauma Psychiatric Medical History: Reports: Hx Anxiety Traumatic Medical History: Reports: Hx Fractures Past Surgical History: Reports: Hx Breast Surgery - Right lumpectomy x2 w/ axillary lymph node diseection., Hx Cholecystectomy, Hx Orthopedic Surgery - Left patellar reconstruction, Hx Tonsillectomy, Hx Tubal Ligation. Denies: Hx Hysterectomy - Immunizations Immunizations up to date: Yes Hx Diphtheria, Pertussis, Tetanus Vaccination: No Hx Pneumococcal Vaccination: 01/26/15 Physical Exam - Vital signs Vitals: Resp BP Pulse Ox 24 H 116/87 H 94 06/10/18 11:38 06/10/18 11:38 06/10/18 11:38 Course - Re-evaluation Re-evalutation: Patient seen and examined vital signs reviewed. Laboratory data and imaging were ordered as appropriate for the patient's pr esenting symptoms and complaint, with consideration of any critical or life threatening conditions that may be associated with their obtained history and exam as noted above. Patient was treated with IV fluid, started on IV vancomycin, and doxycycline, I did discuss this case with the resident, who reviewed the patient's case, and stated that they did grow blood cultures are positive for staph epidermidis, in multiple tubes, one was from the patient's Mediport, this is concerning for possible line sepsis, and that is why vancomycin was added, he did review the culture and sensitivities with me. Patient was made aware of these findings, she was getting more somnolent in the emergency department, therefore I placed her on BiPAP because I feared she was going into a more acute on chronic re spiratory failure, which she did present with a few days ago when she was initially admitted to [facility], she was agreeable to this transfer. Results were reviewed when available and demonstrated bandemia, no leukocytosis, she was tachycardic, and was noted to be markedly thrombocytopenic which is chronic for this patient, her anemia seemed to be stable. She did have an elevated lactate of 2.4, the patient was not given complete 30 mL/kg bolus due to poor underlying lung function and pleural effusions, for fear of volume overload. Her blood pressure was stable. The patient was re-evaluated and was improved on BiPAP, and heart rate was improving after fluid Evaluation was most consistent with sepsis, likely secondary to bacteremia, severe thrombocytopenia Results were discussed with the patient at this point after careful consideration I feel that that patient should be transferred to [facility] due to need for infectious disease, and recent admission there, with her records, to continue continuity of care. This was discussed with the patient that it is in the best interest for their care to be transferred, the risks and benefits of transfer were discussed, including but not limited to clinical deterioration during transport, respiratory distress, and potential for traumatic injuries. Patient agreed with this plan of care. *Note is created using voice recognition software and may contain spelling, syntax or grammatical errors. Laboratory 06/10/18 06/10/18 06/10/18 11:45 11:45 11:45 WBC 6.4 RBC 2.60 L Hgb 8.8 L Hct 25.4 L MCV 98 H MCH 33.9 H MCHC 34.6 RDW 21.7 H Plt Count 11 L* Total Counted 100 Seg Neutrophils % Not Reportable Seg Neuts % (Manual) 59 Band Neutrophils % 12 H Lymphocytes % Not Reportable Lymphocytes % (Manual) 19 Monocytes % Not Reportable Monocytes % (Manual) 1 L Eosinophils % Not Reportable Eosinophils % (Manual) 1 Basophils % Not Reportable Basophils % (Manual) 0 Metamyelocytes % 4 H Myelocytes % 3 H Promyelocytes % 1 H Absolute Neutrophils Not Reportable Abs Neuts (Manual) 7.2 Absolute Lymphocytes Not Reportable Abs Lymphs (Manual) 1.7 Absolute Monocytes Not Reportable Abs Monocytes (Manual) 0.1 Absolute Eosinophils Not Reportable Absolute Eos (Manual) 0.1 Absolute Basophils Not Reportable Abs Basophils (Manual) 0.0 Nucleated RBCs 43 Toxic Granulation 1+ Platelet Comment DECREASED Polychromasia 2+ Hypochromasia 1+ PT 13.3 INR 0.96 VBG pH VBG pCO2 VBG HCO3 VBG Base Excess Sodium 137.1 Potassium 4.6 Chloride 96 L Carbon Dioxide 39 H Anion Gap 2 L BUN 13 Creatinine 0.69 Est GFR ( Amer) > 60 Est GFR (Non-Af Amer) > 60 Glucose 108 Lactic Acid Calcium 8.2 L Total Bilirubin 1.0 Direct Bilirubin 0.5 H Neonat Total Bilirubin Not Reportable Neonat Direct Bilirubin Not Reportable Neonat Indirect Bili Not Reportable AST 113 H ALT 32 Alkaline Phosphatase 277 H Total Protein 6.1 L Albumin 3.0 L Urine Color Urine Appearance Urine pH Ur Specific [place] Urine Protein Urine Glucose (UA) Urine Ketones Urine Blood Urine Nitrite Urine Bilirubin Urine Urobilinogen Ur Leukocyte Esterase Urine RBC (Auto) Squamous Epi Cells Auto Urine Ascorbic Acid Blood Type Antibody Screen 06/10/18 06/10/18 06/10/18 11:45 11:45 11:45 WBC RBC Hgb Hct MCV MCH MCHC RDW Plt Count Total Counted Seg Neutrophils % Seg Neuts % (Manual) Band Neutrophils % Lymphocytes % Lymphocytes % (Manual) Monocytes % Monocytes % (Manual) Eosinophils % Eosinophils % (Manual) Basophils % Basophils % (Manual) Metamyelocytes % Myelocytes % Promyelocytes % Absolute Neutrophils Abs Neuts (Manual) Absolute Lymphocytes Abs Lymphs (Manual) Absolute Monocytes Abs Monocytes (Manual) Absolute Eosinophils Absolute Eos (Manual) Absolute Basophils Abs Basophils (Manual) Nucleated RBCs Toxic Granulation Platelet Comment Polychromasia Hypochromasia PT INR VBG pH 7.41 VBG pCO2 61.7 VBG HCO3 37.9 H VBG Base Excess 11.7 Sodium Potassium Chloride Carbon Dioxide Anion Gap BUN Creatinine Est GFR ( Amer) Est GFR (Non-Af Amer) Glucose Lactic Acid 2.4 H Calcium Total Bilirubin Direct Bilirubin Neonat Total Bilirubin Neonat Direct Bilirubin Neonat Indirect Bili AST ALT Alkaline Phosphatase Total Protein Albumin Urine Color Urine Appearance Urine pH Ur Specific [place] Urine Protein Urine Glucose (UA) Urine Ketones Urine Blood Urine Nitrite Urine Bilirubin Urine Urobilinogen Ur Leukocyte Esterase Urine RBC (Auto) Squamous Epi Cells Auto Urine Ascorbic Acid Blood Type O POSITIVE Antibody Screen NEGATIVE 06/10/18 12:32 WBC RBC Hgb Hct MCV MCH MCHC RDW Plt Count Total Counted Seg Neutrophils % Seg Neuts % (Manual) Band Neutrophils % Lymphocytes % Lymphocytes % (Manual) Monocytes % Monocytes % (Manual) Eosinophils % Eosinophils % (Manual) Basophils % Basophils % (Manual) Metamyelocytes % Myelocytes % Promyelocytes % Absolute Neutrophils Abs Neuts (Manual) Absolute Lymphocytes Abs Lymphs (Manual) Absolute Monocytes Abs Monocytes (Manual) Absolute Eosinophils Absolute Eos (Manual) Absolute Basophils Abs Basophils (Manual) Nucleated RBCs Toxic Granulation Platelet Comment Polychromasia Hypochromasia PT INR VBG pH VBG pCO2 VBG HCO3 VBG Base Excess Sodium Potassium Chloride Carbon Dioxide Anion Gap BUN Creatinine Est GFR ( Amer) Est GFR (Non-Af Amer) Glucose Lactic Acid Calcium Total Bilirubin Direct Bilirubin Neonat Total Bilirubin Neonat Direct Bilirubin Neonat Indirect Bili AST ALT Alkaline Phosphatase Total Protein Albumin Urine Color STRAW Urine Appearance CLEAR Urine pH 8.0 Ur Specific [place] 1.004 Urine Protein NEGATIVE Urine Glucose (UA) NEGATIVE Urine Ketones NEGATIVE Urine Blood NEGATIVE Urine Nitrite NEGATIVE Urine Bilirubin NEGATIVE Urine Urobilinogen NEGATIVE Ur Leukocyte Esterase NEGATIVE Urine RBC (Auto) 0 Squamous Epi Cells Auto <1 Urine Ascorbic Acid NEGATIVE Blood Type Antibody Screen Chest X-Ray 06/10/18 11:52 IMPRESSION: Unchanged small bilateral pleural effusions and mild, diffuse bilateral interstitial pulmonary opacity. 06/10/18 15:18 - Vital Signs Vital signs: Temp Pulse Resp BP Pulse Ox 98.0 F 19 105/60 94 06/10/18 11:46 06/10/18 14:01 06/10/18 14:01 06/10/18 14:01 - Laboratory Result Diagrams: 06/10/18 11:45 06/10/18 11:45 Laboratory results interpreted by me: 06/10/18 06/10/18 06/10/18 11:45 11:45 11:45 RBC 2.60 L Hgb 8.8 L Hct 25.4 L MCV 98 H MCH 33.9 H RDW 21.7 H Plt Count 11 L* Band Neutrophils % 12 H Monocytes % (Manual) 1 L Metamyelocytes % 4 H Myelocytes % 3 H Promyelocytes % 1 H VBG HCO3 Chloride 96 L Carbon Dioxide 39 H Anion Gap 2 L Lactic Acid 2.4 H Calcium 8.2 L Direct Bilirubin 0.5 H AST 113 H Alkaline Phosphatase 277 H Total Protein 6.1 L Albumin 3.0 L 06/10/18 11:45 RBC Hgb Hct MCV MCH RDW Plt Count Band Neutrophils % Monocytes % (Manual) Metamyelocytes % Myelocytes % Promyelocytes % VBG HCO3 37.9 H Chloride Carbon Dioxide Anion Gap Lactic Acid Calcium Direct Bilirubin AST Alkaline Phosphatase Total Protein Albumin - EKG Interpretation by Me Additional EKG results interpreted by me: EKG demonstrates sinus tachycardia with a ventricular rate of 114 bpm, normal axis, QTC 430 ms, no evidence of acute ischemia on this EKG, this is compared with her prior EKG from 06/10/2018, from earlier this morning. Baseline artifact noted on today's EKG. Critical Care Note - Critical Care Note Total time excluding time spent on procedures (mins): 42 Comments: Critical care time 42 minutes exclusive from separate billable procedures for a patient requiring complex medical decision making, and high potential for clinical deterioration. In a patient with sepsis, most likely secondary to bacteremia, from her Mediport, requiring review of records, discussion with consultants, and acute on chronic respiratory failure requiring noninvasive positive pressure ventilation. Time spent obtaining history from patient or surrogate, discussions with consultants, development of treatment plan with patient or surrogate, evaluation of patient's response to treatment, examination of patient, ordering and performing treatments and interventions, ordering and review of laboratory studies, re-evaluation of patient's condition, ordering and review of radiographic studies and review of old charts Discharge - Discharge Clinical Impression: Bacteremia, Thrombocytopenia, Bilateral pleural effusion, Acute and chronic respiratory failure with hypoxia Sepsis Qualifiers: Sepsis type: sepsis due to unspecified organism Qualified Code(s): A41.9 - Sepsis, unspecified organism Condition: Serious Disposition: [facility] Referrals: HINA LAW MD [Primary Care Provider] - Follow up as needed
--- NOTE | 2018-06-10 12:36 | RADIOLOGY REPORT (SQ) ---
EXAM DESCRIPTION: CHEST SINGLE VIEW COMPLETED DATE/TIME: 06/10/2018 12:25 pm REASON FOR STUDY: shortness of breath COMPARISON: Same day chest radiograph EXAM PARAMETERS: NUMBER OF VIEWS: One view. TECHNIQUE: Single frontal radiographic view of the chest acquired. RADIATION DOSE: NA LIMITATIONS: None. FINDINGS: LUNGS AND PLEURA: Unchanged small bilateral pleural effusions and mild, diffuse bilateral interstitial pulmonary opacity. MEDIASTINUM AND HILAR STRUCTURES: No masses. Contour normal. HEART AND VASCULAR STRUCTURES: Heart normal in size. Normal vasculature. BONES: No acute findings. HARDWARE: None in the chest. OTHER: Left chest port catheter. IMPRESSION: Unchanged small bilateral pleural effusions and mild, diffuse bilateral interstitial pul monary opacity. TECHNICAL DOCUMENTATION: JOB ID: [id number] [employer]- All Rights Reserved Reading location - IP/workstation name: [email or web address]
[2018-06-10 12:53] LABS: APPEARANCE,URINE CLEAR; BILIRUBIN,URINE NEGATIVE (NEGATIVE); COLOR,URINE STRAW; GLUCOSE, URINE NEGATIVE (NEGATIVE); KETONES,URINE NEGATIVE (NEGATIVE); LEUKOCYTE ESTERASE,URINE NEGATIVE (NEGATIVE); NITRITE,URINE NEGATIVE (NEGATIVE); PROTEIN,URINE NEGATIVE (NEGATIVE); URINE SPECIFIC GRAVITY 1.004; UROBILINOGEN,URINE NEGATIVE mg/dL (<2.0)
[2018-06-10 12:55] LABS: PLATELET COUNT 11 10^3/uL (150-450)
[2018-06-10 12:59] LABS: ABSOLUTE LYMPHOCYTES# (MANUAL) 1.7 10^3/uL (0.5-4.7); ABSOLUTE MONOCYTES # (MANUAL) 0.1 10^3/uL (0.1-1.4); ABSOLUTE NEUTROPHILS# (MANUAL) 7.2 10^3/uL (1.7-8.2); BAND NEUTROPHILS % (MANUAL) 12 % (3-5); BASOPHILS % (MANUAL) 0 % (0-2); EOSINOPHILS % (MANUAL) 1 % (0-6); LYMPHOCYTES % (MANUAL) 19 % (13-45); MONOCYTES % (MANUAL) 1 % (3-13); NUCLEATED RED BLOOD CELLS 43 /100 WBC (0); SEGMENTED NEUTROPHILS % (MAN) 59 % (42-78); TOTAL CELLS COUNTED 100
[2018-06-10 13:06] LABS: METAMYELOCYTES % (MANUAL) 4 % (0); MYELOCYTES % (MANUAL) 3 % (0)
[2018-06-10 13:07] LABS: HYPOCHROMASIA 1+; PLATELET COMMENT DECREASED; POLYCHROMASIA 2+; PROMYELOCYTES % (MANUAL) 1 % (0); TOXIC GRANULATION 1+
[2018-06-10 13:08] LABS: WHITE BLOOD COUNT 6.4 10^3/uL (4.0-10.5)
[2018-06-10] MEDS ORDERED: DOXYCYCLINE HYCLATE INJ 100 MG VIAL IV ONE (13:54)
[2018-06-10] MEDS ORDERED: VANCOMYCIN HCL INJ 1000 MG VIAL ONE ×2 (17:42→17:45)
[2018-06-10] MEDS: VANCOMYCIN HCL INJ 1000 MG VIAL IV ONE ×2 (17:50→18:03)
[2018-06-10 22:07] VITALS: BP 114/65
--- NOTE | 2018-06-11 08:04 | EKG REPORT ---
SEVERITY:- BORDERLINE ECG - SINUS OR ECTOPIC ATRIAL TACHYCARDIA PROBABLE LEFT ATRIAL ABNORMALITY : Confirmed by: Alexia Campos MD 11-Jun-2018 08:03:51
[2018-06-12 14:48] LABS: PATH REVIEW PATHOLOGIST REVIEWED
== END 2018-06-10 22:00 | disposition short-term general hospital (02) ==
LOC: ER 11:26
DX: A41.1 Sepsis due to other specified staphylococcus (principal); J96.21 Acute and chronic respiratory failure with hypoxia; D69.6 Thrombocytopenia, unspecified; J90 Pleural effusion, not elsewhere classified; J44.9 Chronic obstructive pulmonary disease, unspecified; R07.81 Pleurodynia; Z99.81 Dependence on supplemental oxygen; F17.200 Nicotine dependence, unspecified, uncomplicated; R60.0 Localized edema; Z91.040 Latex allergy status; Z88.5 Allergy status to narcotic agent; Z88.2 Allergy status to sulfonamides; Z91.048 Other nonmedicinal substance allergy status; Z87.01 Personal history of pneumonia (recurrent)
CPT/HCPCS: 93005; 99291; 96361; 96365; 96366; 96367; 86900; 86901; 36415; 87040; 87086; 86850; 85025; 85610; 87088; 80053; 81001; 87186; 82803; 83605; 71045; 93010; J3490; J7120; J3370

== ENCOUNTER 2018-06-30 08:13 | Outpatient (CLI) | payer MEDICAID ==
[~2018-06-30 08:13] MED LIST changes: -NORMAL SALINE INJ/PF 0.9% 10 ML SDV IV PRN
[2018-06-30 09:15] LABS: HEMATOCRIT 20.7 % (36.0-47.0); MEAN CORPUSCULAR HGB CONC 35.3 g/dL (32.0-36.0); MEAN CORPUSCULAR VOLUME 99 fl (80-97); RED BLOOD COUNT 2.09 10^6/uL (3.72-5.28); RED CELL DISTRIBUTION WIDTH 22.9 % (11.5-14.0)
[2018-06-30] MEDS ORDERED: NORMAL SALINE 250 ML IV PRN (09:30)
[2018-06-30 10:20] LABS: HEMOGLOBIN 7.3 g/dL (12.0-15.5); PLATELET COUNT 15 10^3/uL (150-450)
[2018-06-30 17:04] VITALS: BP 128/70
[2018-06-30 17:44] LABS: HEMATOCRIT 24.7 % (36.0-47.0); HEMOGLOBIN 8.6 g/dL (12.0-15.5); MEAN CORPUSCULAR HEMOGLOBIN 33.2 pg (27.0-33.4); MEAN CORPUSCULAR HGB CONC 34.9 g/dL (32.0-36.0); RED BLOOD COUNT 2.59 10^6/uL (3.72-5.28); RED CELL DISTRIBUTION WIDTH 20.2 % (11.5-14.0); WHITE BLOOD COUNT 7.4 10^3/uL (4.0-10.5)
[2018-06-30 17:47] LABS: MEAN CORPUSCULAR VOLUME 95 fl (80-97)
[2018-06-30 17:51] LABS: PLATELET COUNT 12 10^3/uL (150-450)
== END 2018-06-30 17:23 | disposition home or self-care (01) ==
LOC: II 08:13 → 4S 08:19 → II 17:23
PROVIDERS: ATTEND Internal Medicine Medical Oncology
PROC: 30233N1 Transfusion of Nonautologous Red Blood Cells into Peripheral Vein, Percutaneous Approach (ICD-10-PCS; principal; 2018-06-30)
PROC: 3E033GC Introduction of Other Therapeutic Substance into Peripheral Vein, Percutaneous Approach (ICD-10-PCS; 2018-06-30)
DX: C50.919 Malignant neoplasm of unspecified site of unspecified female breast (principal)
CPT/HCPCS: 86900; 86901; 36415; 36430; 86850; 85027; 86920; P9016; J3490 ×2; J1940; 96374

== ENCOUNTER 2018-07-05 17:43 | Emergency (ER) | payer MEDICAID ==
[2018-07-05 19:06] LABS: MEAN CORPUSCULAR HEMOGLOBIN 33.9 pg (27.0-33.4); MEAN CORPUSCULAR HGB CONC 34.8 g/dL (32.0-36.0); MEAN CORPUSCULAR VOLUME 97 fl (80-97); RED BLOOD COUNT 1.95 10^6/uL (3.72-5.28); RED CELL DISTRIBUTION WIDTH 21.5 % (11.5-14.0)
[2018-07-05 19:12] LABS: HEMOGLOBIN 6.6 g/dL (12.0-15.5)
[2018-07-05 19:22] LABS: ALANINE AMINOTRANSFERASE 20 U/L (9-52); ALBUMIN 2.8 g/dL (3.5-5.0); ALKALINE PHOSPHATASE 350 U/L (38-126); ANION GAP 6 (5-19); ASPARTATE AMINO TRANSFERASE 35 U/L (14-36); BILIRUBIN,DIRECT 0.8 mg/dL (0.0-0.4); BILIRUBIN,TOTAL 1.6 mg/dL (0.2-1.3); BLOOD UREA NITROGEN 15 mg/dL (7-20); CALCIUM 8.1 mg/dL (8.4-10.2); CARBON DIOXIDE 32 mmol/L (22-30); CHLORIDE 97 mmol/L (98-107); GLUCOSE 101 mg/dL (75-110); LIPASE 16.2 U/L (23-300); POTASSIUM 4.3 mmol/L (3.6-5.0); SODIUM 134.5 mmol/L (137-145); TOTAL PROTEIN 5.4 g/dL (6.3-8.2)
[2018-07-05] MEDS ORDERED: ONDANSETRON HCL INJ/PF 4 MG/2 ML SDV IV ONE (19:29)
--- NOTE | 2018-07-05 19:32 | ER Document Report ---
ED General - General Chief Complaint: Abdominal Pain Stated Complaint: ABDOMINAL PAIN Time Seen by Provider: 07/05/18 18:30 Primary Care Provider: MORAIMA JARQUIN NP [Primary Care Provider] - Follow up as needed Notes: Patient is a 52-year-old female well-known to me with an unfortunate history of metastatic, terminal breast cancer presents complaining of left flank and left- sided abdominal pain. States that the pain started approximately 1 hour ago and is described as a severe, throbbing, constant pain to the affected area. She has tried her home narcotic pain medications without any relief. Nothing worsens the pain. Last bowel movement was 4-5 days ago. Notes associated nausea but no vomiting. Has not contacted her primary care doctor regarding today's concerns. Denies fever or constitutional symptoms. Denies a history of similar symptoms in the past. TRAVEL OUTSIDE OF THE [place] IN LAST 30 DAYS: No - Related Data Allergies/Adverse Reactions: latex Allergy (Severe, Verified 06/06/18 17:46) blisters,rash morphine [Morphine] Allergy (Severe, Verified 06/06/18 17:46) short of breath Sulfa (Sulfonamide Antibiotics) Allergy (Intermediate, Verified 06/06/18 17:46) rash adhesive Allergy (Verified 06/06/18 17:46) Plastic tape Adverse Reaction (Uncoded 06/06/18 17:46) Blisters Past Medical History - General Information source: Patient - Social History Smoking Status: Current Every Day Smoker Frequency of alcohol use: None Drug Abuse: None Lives with: Alone Family History: Reviewed & Not Pertinent Patient has suicidal ideation: No Patient has homicidal ideation: No - Past Medical History Cardiac Medical History: Denies: Hx Congestive Heart Failure, Hx Coronary Artery Disease, Hx Heart Attack, Hx Hypertension Pulmonary Medical History: Reports: Hx Asthma, Hx COPD, Hx Pneumonia Denies: Hx Bronchitis Neurological Medical History: Denies: Hx Cerebrovascular Accident, Hx Seizures Renal/ Medical History: Denies: Hx Peritoneal Dialysis Malignancy Medical History: Reports: Hx Breast Cancer - Stage IV, mets to L5 and R & L posterior parietal skull. GI Medical History: Reports: Hx Gastroesophageal Reflux Disease. Denies: Hx Cirrhosis, Hx Ulcer Musculoskeletal Medical History: Reports Hx Arthritis - generalized, Reports Hx Musculoskeletal Deformity, Reports Hx Musculoskeletal Trauma Psychiatric Medical History: Reports: Hx Anxiety Traumatic Medical History: Reports: Hx Fractures Past Surgical History: Reports: Hx Breast Surgery - Right lumpectomy x2 w/ axillary lymph node diseection., Hx Cholecystectomy, Hx Orthopedic Surgery - Left patellar reconstruction, Hx Tonsillectomy, Hx Tubal Ligation. Denies: Hx Hysterectomy - Immunizations Immunizations up to date: Yes Hx Diphtheria, Pertussis, Tetanus Vaccination: No Hx Pneumococcal Vaccination: 01/26/15 Review of Systems - Review of Systems Notes: Constitutional: Negative for fever. HENT: Negative for sore throat. Eyes: Negative for visual changes. Cardiovascular: Negative for chest pain. Respiratory: Positive for shortness of breath. Gastrointestinal: Positive for abdominal pain and nausea Genitourinary: Negative for dysuria. Musculoskeletal: Negative for back pain. Skin: Negative for rash. Neurological: Negative for headaches, weakness or numbness. 10 point ROS negative except as marked above and in HPI. Physical Exam - Vital signs Vitals: Temp Pulse BP Pulse Ox 99.4 F 110 H 118/50 L 98 07/05/18 17:52 07/05/18 17:52 07/05/18 17:52 07/05/18 17:52 Interpretation: Tachycardic Notes: PHYSICAL EXAMINATION: GENERAL: Appears markedly older than stated age, chronically ill in appearance but in no acute distress HEAD: Atraumatic, normocephalic. EYES: Pupils equal round and reactive to light, extraocular movements intact, sclera anicteric, conjunctiva are normal. ENT: nares patent, oropharynx clear without exudates. Dry mucous membranes. NECK: Normal range of motion, supple without lymphadenopathy LUNGS: Breath sounds clear to auscultation bilaterally and equal. No wheezes rales or rhonchi. HEART: Regular tachycardia without murmurs ABDOMEN: Soft, mild tenderness to the left flank and left lower quadrant but no other localized areas of tenderness, rebound or guarding, normoactive bowel sounds. No guarding, no rebound. No masses appreciated. EXTREMITIES: Normal range of motion, no pitting or edema. No cyanosis. NEUROLOGICAL: No focal neurological deficits. Moves all extremities spontaneously and on command. PSYCH: Moderately anxious SKIN: Warm, Dry, normal turgor, no rashes or lesions noted. Course - Re-evaluation Re-evalutation: 07/05/18 19:31 Patient presents with significant pain to the left flank rating at the left lo wer abdomen. Patient is well-known to me, very unfortunate and has a history of terminal metastatic breast cancer with metastases almost everywhere including throughout her abdomen and the bones of her thorax. Patient is extremely uncomfortable, has exquisite pain on palpation of the left upper quadrant and left lower quadrant as well as the left flank. Differential includes nephrolithiasis, bowel perforation, bowel obstruction, renal hematoma or hemorrhage, pathologic fracture. Proceed with labs, CT of the abdomen pelvis, begin pain control and reevaluate. 07/05/18 21:40 CT abdomen pelvis does not show any acute findings, does show hepatosplenomegaly, metastatic disease throughout including into the osseous structures. Suspect the patient likely is having pain related to 1 of the oss eous metastases. Pain has improved here in the emergency room with IV analgesia. Have continue to encourage the patient to enroll in hospice care and follow-up with her oncologist. Patient's laboratories revealed chronic thrombus cytopenia and chronic anemia effectively unchanged from previous la boratories. At this time will discharge with return precautions and follow-up recommendations. Verbal discharge instructions given a the bedside and opportunity for questions given. Medication warnings reviewed. Patient is in agreement with this plan and has verbalized understanding of return precautions and the need for primary care follow-up in the next 24-72 hours. - Vital Signs Vital signs: Temp Pulse Resp BP Pulse Ox 98.8 F 101 H 16 118/48 L 98 07/05/18 23:25 07/05/18 23:25 07/05/18 23:25 07/05/18 23:25 07/05/18 23:25 - Laboratory Result Diagrams: 07/05/18 18:45 07/05/18 18:45 Laboratory results interpreted by me: 07/05/18 07/05/18 07/05/18 18:45 18:45 19:05 RBC 1.95 L Hgb 6.6 L Hct 19.0 L MCH 33.9 H RDW 21.5 H Plt Count 7 L* Sodium 134.5 L Chloride 97 L Carbon Dioxide 32 H Calcium 8.1 L Total Bilirubin 1.6 H Direct Bilirubin 0.8 H Alkaline Phosphatase 350 H Total Protein 5.4 L Albumin 2.8 L Lipase 16.2 L Urine Urobilinogen 4.0 H - Diagnostic Test Radiology reviewed: Reports reviewed Discharge - Discharge Clinical Impression: Thrombocytopenia, Metastatic breast cancer, Left sided abdominal pain, Chronic anemia Condition: Good Disposition: HOME, SELF-CARE Additional Instructions: Please return if you develop worsening of your pain, persistent vomiting, pass out, or have any other symptoms that are worrisome to you. Please follow-up with Dr. Narayanan in the morning as scheduled. Referrals: MORAIMA JARQUIN NP [Primary Care Provider] - Follow up as needed
[2018-07-05 19:34] LABS: ABSOLUTE MONOCYTES # (MANUAL) 0.4 10^3/uL (0.1-1.4); BASOPHILS % (MANUAL) 1 % (0-2); EOSINOPHILS % (MANUAL) 1 % (0-6); LYMPHOCYTES % (MANUAL) 17 % (13-45); MONOCYTES % (MANUAL) 7 % (3-13); NUCLEATED RED BLOOD CELLS 22 /100 WBC (0); SEGMENTED NEUTROPHILS % (MAN) 74 % (42-78); TOTAL CELLS COUNTED 100
[2018-07-05 19:53] LABS: ANISOCYTOSIS 3+; OVALOCYTES 1+; POIKILOCYTOSIS 2+; POLYCHROMASIA 1+; SCHISTOCYTES SLIGHT; TOXIC GRANULATION 1+; TOXIC VACUOLATION PRESENT
[2018-07-05 19:54] LABS: PLATELET COMMENT DECREASED; PLATELET COUNT 7 10^3/uL (150-450)
[2018-07-05 19:56] LABS: WHITE BLOOD COUNT 5.2 10^3/uL (4.0-10.5)
[2018-07-05] MEDS: HYDROMORPHONE HCL INJ/PF 2 MG/ML AMPULE IV PRN ×3 (19:57→23:19)
[2018-07-05 19:58] LABS: ABSOLUTE LYMPHOCYTES# (MANUAL) 0.9 10^3/uL (0.5-4.7); ABSOLUTE NEUTROPHILS# (MANUAL) 3.8 10^3/uL (1.7-8.2)
[2018-07-05 20:04] LABS: APPEARANCE,URINE CLEAR; BILIRUBIN,URINE NEGATIVE (NEGATIVE); COLOR,URINE YELLOW; GLUCOSE, URINE NEGATIVE (NEGATIVE); KETONES,URINE NEGATIVE (NEGATIVE); LEUKOCYTE ESTERASE,URINE NEGATIVE (NEGATIVE); NITRITE,URINE NEGATIVE (NEGATIVE); PROTEIN,URINE NEGATIVE (NEGATIVE); URINE SPECIFIC GRAVITY 1.016
--- NOTE | 2018-07-05 20:49 | RADIOLOGY REPORT (SQ) ---
CT ABDOMEN PELVIS WITH IV CONTRAST HISTORY: Left flank pain COMPARISON: 05/01/1980 TECHNIQUE: CT scan of the abdomen and pelvis with IV contrast. This exam was performed according to our departmental dose-optimization program, which includes automated exposure control, adjustment of the mA and/or kV according to patient size and/or use of iterative reconstruction technique. FINDINGS: Small bilateral pleural effusions with adjacent atelectasis. No hiatal hernia is seen. There has been a prior cholecystectomy. The spleen is enlarged measuring 17.8 cm. The liver is also enlarged, measuring 18 cm. Pancreas, adrenal glands, and kidneys are unremarkable. No obstructing urinary stones or hydronephrosis is identified. The pelvic organs are poorly visualized due to streak artifact. No small bowel obstruction is seen. The appendix is not definitively identified. There is a heterogeneous pattern of the osseous structures, nonspecific but may represent metastatic disease. The aorta is normal caliber. IMPRESSION: 1. No urinary stones or hydronephrosis. 2. Hepatosplenomegaly along with diffuse metastatic disease throughout the osseous structures. 3. Bilateral pleural effusions with adjacent atelectasis.
[2018-07-05 23:27] VITALS: BP 118/48
== END 2018-07-05 23:47 | disposition home or self-care (01) ==
LOC: ER 17:43
DX: C50.919 Malignant neoplasm of unspecified site of unspecified female breast (principal); C79.89 Secondary malignant neoplasm of other specified sites; D69.6 Thrombocytopenia, unspecified; R10.12 Left upper quadrant pain; R10.32 Left lower quadrant pain; D64.89 Other specified anemias; R10.9 Unspecified abdominal pain; R11.0 Nausea; R06.02 Shortness of breath; R00.0 Tachycardia, unspecified; Z79.899 Other long term (current) drug therapy; F17.200 Nicotine dependence, unspecified, uncomplicated; J44.9 Chronic obstructive pulmonary disease, unspecified
CPT/HCPCS: 99284; 96374; 96375; 36415; 83690; 85025; 80053; 81001; 74177; J1170; J2405

== ENCOUNTER 2018-07-08 14:25 | Emergency (ER) | payer MEDICAID ==
[2018-07-08] MEDS ORDERED: IPRATROPIUM/ALBUTEROL 0.5-2.5 MG/3 ML AMPUL NEB ONE ×2 (15:02→15:30)
[2018-07-08 15:14] VITALS: BP 112/64
--- NOTE | 2018-07-08 15:33 | ER Document Report ---
ED Medical Screen (RME) - General Chief Complaint: Breathing Difficulty Stated Complaint: DIFFICULTY BREATHING Time Seen by Provider: 07/08/18 15:28 Primary Care Provider: HINA LAW MD [Primary Care Provider] - Follow up as needed Mode of Arrival: Wheelchair Information source: [facility] Records Cannot obtain history due to: Altered mental status Notes: 52-year-old female with COPD, asthma, metastatic breast cancer presents with complaint of right lower extremity swelling and shortness of breath. Patient did undergo an ultrasound earlier today ordered by her oncologist. This was reviewed and was read as negative for DVT or SVT. Patient is lethargic, unable to answer questions. I have greeted and performed a rapid initial assessment of this patient. A comprehensive ED assessment and evaluation of the patient, analysis of test results and completion of medical decision making process we will be contacted by additional ED providers. PHYSICAL EXAMINATION: Vital signs reviewed GENERAL: Ill-appearing, lethargic LUNGS: On oxygen, coarse breath sounds, tachypnea Musculoskeletal: Right lower extremity swelling and redness. SKIN: biLateral lower extremities erythematous TRAVEL OUTSIDE OF THE [place] IN LAST 30 DAYS: No - Related Data Allergies/Adverse Reactions: latex Allergy (Severe, Verified 06/06/18 17:46) blisters,rash morphine [Morphine] Allergy (Severe, Verified 06/06/18 17:46) short of breath Sulfa (Sulfonamide Antibiotics) Allergy (Intermediate, Verified 06/06/18 17:46) rash adhesive Allergy (Verified 06/06/18 17:46) Plastic tape Adverse Reaction (Uncoded 06/06/18 17:46) Blisters Past Medical History - Past Medical History Cardiac Medical History: Denies: Hx Congestive Heart Failure, Hx Coronary Artery Disease, Hx Heart Attack, Hx Hypertension Pulmonary Medical History: Reports: Hx Asthma, Hx COPD, Hx Pneumonia Denies: Hx Bronchitis Neurological Medical History: Denies: Hx Cerebrovascular Accident, Hx Seizures Renal/ Medical History: Denies: Hx Peritoneal Dialysis Malignancy Medical History: Reports: Hx Breast Cancer - Stage IV, mets to L5 and R & L posterior parietal skull. GI Medical History: Reports: Hx Gastroesophageal Reflux Disease. Denies: Hx Cirrhosis, Hx Ulcer Musculoskeltal Medical History: Reports Hx Arthritis - generalized, Reports Hx Musculoskeletal Deformity, Reports Hx Musculoskeletal Trauma Psychiatric Medical History: Reports: Hx Anxiety Traumatic Medical History: Reports: Hx Fractures Past Surgical History: Reports: Hx Breast Surgery - Right lumpectomy x2 w/ axillary lymph node diseection., Hx Cholecystectomy, Hx Orthopedic Surgery - Left patellar reconstruction, Hx Tonsillectomy, Hx Tubal Ligation. Denies: Hx Hysterectomy - Immunizations Immunizations up to date: Yes Hx Diphtheria, Pertussis, Tetanus Vaccination: No History of Influenza Vaccine for 02/2017 - 07/2017 Season: Yes Influenza Administration Date for 02/2017 - 07/2017 Season: 02/16/18 Physical Exam - Vital signs Vitals: Temp Pulse Resp BP Pulse Ox 98.6 F 110 H 24 H 112/64 95 07/08/18 15:11 07/08/18 15:11 07/08/18 15:11 07/08/18 15:11 07/08/18 15:11 Course - Vital Signs Vital signs: Temp Pulse Resp BP Pulse Ox 98.6 F 110 H 24 H 112/64 95 07/08/18 15:11 07/08/18 15:11 07/08/18 15:11 07/08/18 15:11 07/08/18 15:11 Doctor's Discharge - Discharge Referrals: HINA LAW MD [Primary Care Provider] - Follow up as needed
[2018-07-08 16:05] LABS: ARTERIAL BLOOD BASE EXCESS 8.9 mmol/L; ARTERIAL BLOOD H2CO3 2.02 mmol/L (1.05-1.35); ARTERIAL BLOOD HCO3 36.4 mmol/L (20-24); ARTERIAL BLOOD PCO2 67.1 mmHg (35-45); ARTERIAL BLOOD PH 7.35 (7.35-7.45); ARTERIAL BLOOD PO2 98.5 mmHg (80-100); ARTERIAL BLOOD TOTAL CO2 38.4 mmol/L (21-25)
[2018-07-08 16:06] LABS: ARTERIAL BLOOD FIO2 4L; HEMATOCRIT 23.5 % (36.0-47.0); HEMOGLOBIN 8.1 g/dL (12.0-15.5); MEAN CORPUSCULAR HEMOGLOBIN 32.9 pg (27.0-33.4); MEAN CORPUSCULAR HGB CONC 34.7 g/dL (32.0-36.0); MEAN CORPUSCULAR VOLUME 95 fl (80-97); RED BLOOD COUNT 2.47 10^6/uL (3.72-5.28); RED CELL DISTRIBUTION WIDTH 19.9 % (11.5-14.0); WHITE BLOOD COUNT 6.4 10^3/uL (4.0-10.5)
--- NOTE | 2018-07-08 16:22 | RADIOLOGY REPORT (SQ) ---
EXAM DESCRIPTION: CHEST SINGLE VIEW COMPLETED DATE/TIME: 07/08/2018 4:09 pm REASON FOR STUDY: sob COMPARISON: 06/10/2018 NUMBER OF VIEWS: One view. TECHNIQUE: Single frontal radiographic image of the chest acquired. LIMITATIONS: Positioning. FINDINGS: LUNGS AND PLEURA: Interstitial edema and bilateral pleural effusions. MEDIASTINUM AND HEART: Cardiomegaly. Vascular congestion. BONY STRUCTURES: No acute findings. HARDWARE: None. OTHER: No other significant finding. IMPRESSION: CHF. TECHNICAL DOCUMENTATION: JOB ID: [id number] Reading location - IP/workstation name: [email or web address]
[2018-07-08 16:29] LABS: BLOOD UREA NITROGEN 9 mg/dL (7-20); CALCIUM 8.3 mg/dL (8.4-10.2); GLUCOSE 109 mg/dL (75-110)
[2018-07-08 16:30] LABS: ALANINE AMINOTRANSFERASE 19 U/L (9-52); ALBUMIN 2.9 g/dL (3.5-5.0); ALKALINE PHOSPHATASE 365 U/L (38-126); ANION GAP 5 (5-19); ASPARTATE AMINO TRANSFERASE 39 U/L (14-36); BILIRUBIN,DIRECT 0.3 mg/dL (0.0-0.4); CARBON DIOXIDE 35 mmol/L (22-30); CHLORIDE 95 mmol/L (98-107); POTASSIUM 4.2 mmol/L (3.6-5.0); SODIUM 134.7 mmol/L (137-145); TOTAL PROTEIN 5.6 g/dL (6.3-8.2)
[2018-07-08 16:31] LABS: ABSOLUTE LYMPHOCYTES# (MANUAL) 1.1 10^3/uL (0.5-4.7); ABSOLUTE MONOCYTES # (MANUAL) 0.3 10^3/uL (0.1-1.4); BAND NEUTROPHILS % (MANUAL) 4 % (3-5); BASOPHILS % (MANUAL) 0 % (0-2); EOSINOPHILS % (MANUAL) 1 % (0-6); LYMPHOCYTES % (MANUAL) 17 % (13-45); METAMYELOCYTES % (MANUAL) 2 % (0); MONOCYTES % (MANUAL) 4 % (3-13); NUCLEATED RED BLOOD CELLS 11 /100 WBC (0); SEGMENTED NEUTROPHILS % (MAN) 72 % (42-78); TOTAL CELLS COUNTED 100
[2018-07-08 16:32] LABS: PLATELET COMMENT DECREASED
[2018-07-08 16:36] LABS: ANISOCYTOSIS 2+; OVALOCYTES SLIGHT; POIKILOCYTOSIS SLIGHT; POLYCHROMASIA SLIGHT
--- NOTE | 2018-07-08 16:39 | ER Document Report ---
ED Respiratory Problem - General Chief Complaint: Breathing Difficulty Stated Complaint: DIFFICULTY BREATHING Time Seen by Provider: 07/08/18 15:28 Primary Care Provider: HINA LAW MD [Primary Care Provider] - Follow up as needed Mode of Arrival: Wheelchair Notes: Patient is here for difficulty breathing and shortness of breath. She had a chronic problem with breathing difficulty because she has had asthma and COPD. Also, she continues to smoke cigarettes. She has metastatic breast cancer, as well. She is on home oxygen and home nebs. She has had some cough but nonproductive of much phlegm. Has not noted any fever. Patient was here at this hospital today to have a venous Doppler study done because of redness and swelling of her lower extremities. They wanted to rule o ut a possible DVT. I have reviewed the results of that venous Doppler study from earlier today and its negative for any clots patient says she is already taking Keflex and doxycycline which were prescribed earlier this week by her primary care provider. TRAVEL OUTSIDE OF THE [place] IN LAST 30 DAYS: No - Related Data Allergies/Adverse Reactions: latex Allergy (Severe, Verified 06/06/18 17:46) blisters,rash morphine [Morphine] Allergy (Severe, Verified 06/06/18 17:46) short of breath Sulfa (Sulfonamide Antibiotics) Allergy (Intermediate, Verified 06/06/18 17:46) rash adhesive Allergy (Verified 06/06/18 17:46) Plastic tape Adverse Reaction (Uncoded 06/06/18 17:46) Blisters Past Medical History - General Information source: [facility] Records - Social History Smoking Status: Current Every Day Smoker Family History: Reviewed & Not Pertinent Patient has suicidal ideation: No Patient has homicidal ideation: No - Past Medical History Cardiac Medical History: Denies: Hx Congestive Heart Failure, Hx Coronary Artery Disease, Hx Heart Attack, Hx Hypertension Pulmonary Medical History: Reports: Hx Asthma, Hx COPD, Hx Pneumonia Denies: Hx Bronchitis Neurological Medical History: Denies: Hx Cerebrovascular Accident, Hx Seizures Malignancy Medical History: Reports: Hx Breast Cancer - Stage IV, mets to L5 and R & L posterior parietal skull. GI Medical History: Reports: Hx Gastroesophageal Reflux Disease. Denies: Hx Cirrhosis, Hx Ulcer Musculoskeletal Medical History: Reports Hx Arthritis - generalized, Reports Hx Musculoskeletal Deformity, Reports Hx Musculoskeletal Trauma Psychiatric Medical History: Reports: Hx Anxiety Traumatic Medical History: Reports: Hx Fractures Past Surgical History: Reports: Hx Breast Surgery - Right lumpectomy x2 w/ axillary lymph node diseection., Hx Cholecystectomy, Hx Orthopedic Surgery - Left patellar reconstruction, Hx Tonsillectomy, Hx Tubal Ligation. Denies: Hx Hysterectomy - Immunizations Immunizations up to date: Yes Hx Diphtheria, Pertussis, Tetanus Vaccination: No Hx Pneumococcal Vaccination: 01/26/15 Review of Systems - Review of Systems Notes: REVIEW OF SYSTEMS: Patient is difficult to understand because she has a BiPAP mask on. Additionally, patient is quite rude and nasty in her comments. CONSTITUTIONAL : Denies fever. EENT: Denies eye, ear, nose or mouth or throat pain or other symptoms. CARDIOVASCULAR: Denies chest pain. RESPIRATORY: See HPI. GASTROINTESTINAL: Denies abdominal pain or nausea, vomiting, or diarrhea. GENITOURINARY: Denies difficulty or painful urinating, urinary frequency, blood in urine. MUSCULOSKELETAL: Denies back or neck pain. Denies joint pain or swelling. SKIN: Denies rash or skin lesions. Redness of the lower legs bilaterally. NEUROLOGICAL: Denies LOC or altered mental status. Denies headache. Denies sensory loss or motor deficits. ALL OTHER SYSTEMS REVIEWED AND NEGATIVE. Physical Exam - Vital signs Vitals: Temp Pulse Resp BP Pulse Ox 98.6 F 110 H 24 H 112/64 95 07/08/18 15:11 07/08/18 15:11 07/08/18 15:11 07/08/18 15:11 07/08/18 15:11 Interpretation: Normal Notes: PHYSICAL EXAMINATION: BiPAP in place. Patient is difficult to understand with the mask on. She is also unpleasant and quite nasty and trying to get information from her. GENERAL: Well-appearing HEAD: Atraumatic, normocephalic. EYES: Pupils equal round and reactive to light, extraocular movements intact. NECK: Normal range of motion, supple. LUNGS: Breath sounds decreased with some scattered rhonchi and wheezes throughout. HEART: Regular rate and rhythm without murmurs. ABDOMEN: Soft, nontender. No guarding or rebound. No masses. BACK: No tenderness throughout entire back. EXTREMITIES: Normal range of motion without pain. Brawny edema of both lower legs with erythema with cellulitis. NEUROLOGICAL: Normal speech, normal gait. Normal sensory, motor, and reflex exams. Awake, alert, and oriented x3. Cranial nerves normal. PSYCH: Normal mood, normal affect. SKIN: Warm, dry, no rashes. Course - Re-evaluation Re-evalutation: 07/08/18 16:56 Patient has called a neighbor of hers to come pick her up. We were not aware that the patient had done this. She says that she is leaving to go home. She has everything at home that we have here. They have oxygen for her to travel home. I advised the patient that she could go home and on the way home or and she still plans to leave. She is of sound mind and capable of making a decision about her health care. She understands the risks of her leaving without further care. I have gone over those risk and including . Patient understands and still wishes to leave AGAINST MEDICAL ADVICE. Adeel Merchant MD - Vital Signs Vital signs: Temp Pulse Resp BP Pulse Ox 98.6 F 110 H 25 H 112/64 95 07/08/18 15:11 07/08/18 15:11 07/08/18 16:01 07/08/18 15:11 07/08/18 16:01 - Laboratory Result Diagrams: 07/08/18 15:45 07/08/18 15:45 Laboratory results interpreted by me: 07/08/18 07/08/18 07/08/18 15:45 15:45 15:45 RBC 2.47 L Hgb 8.1 L Hct 23.5 L RDW 19.9 H Plt Count 10 L* Metamyelocytes % 2 H Carbonic Acid 2.02 H ABG pCO2 67.1 H ABG HCO3 36.4 H ABG Total CO2 38.4 H Sodium 134.7 L Chloride 95 L Carbon Dioxide 35 H Calcium 8.3 L AST 39 H Alkaline Phosphatase 365 H Total Protein 5.6 L Albumin 2.9 L - Diagnostic Test Radiology reviewed: Image reviewed Radiology results interpreted by me: 07/08/18 16:59 Chest x-ray shows cardiomegaly and congestive heart failure. Not really too much different than on previous x-rays. - EKG Interpretation by Me Additional EKG results interpreted by me: 07/08/18 16:59 Patient refused to have a EKG done. Discharge - Discharge Clinical Impression: Dyspnea, COPD exacerbation, Cellulitis of left lower extremity, Cellulitis of right lower leg Condition: Poor Disposition: AGAINST MEDICAL ADVICE Referrals: HINA LAW MD [Primary Care Provider] - Follow up as needed
[2018-07-08 16:42] LABS: PLATELET COUNT 10 10^3/uL (150-450)
[2018-07-08] MEDS ORDERED: FUROSEMIDE INJ/PF 40 MG/4 ML SDV IV ONE (16:44)
== END 2018-07-08 17:11 | disposition left against medical advice (07) ==
LOC: ER 14:25
DX: J44.1 Chronic obstructive pulmonary disease with (acute) exacerbation (principal); Z99.81 Dependence on supplemental oxygen; L03.116 Cellulitis of left lower limb; L03.115 Cellulitis of right lower limb; I50.9 Heart failure, unspecified; R06.02 Shortness of breath; R05 Cough; F17.210 Nicotine dependence, cigarettes, uncomplicated; Z91.040 Latex allergy status; Z88.5 Allergy status to narcotic agent; Z88.2 Allergy status to sulfonamides; Z91.048 Other nonmedicinal substance allergy status; Z53.20 Procedure and treatment not carried out because of patient's decision for unspecified reasons
CPT/HCPCS: 94640 ×2; 99285; 36415; 82803; 85025; 80053; 71045; 94660; J7620

== ENCOUNTER → 2018-07-08 | Outpatient (CLI) | payer MEDICAID ==
--- NOTE | 2018-07-08 15:01 | RADIOLOGY REPORT (SQ) ---
EXAM DESCRIPTION: VENOUS BILATERAL LOWER COMPLETED DATE/TIME: 07/08/2018 2:50 pm REASON FOR STUDY: PAIN M25.569 PAIN IN UNSPECIFIED KNEE COMPARISON: None. TECHNIQUE: Dynamic and static pacheco scale and color images acquired of both lower extremity venous sy stems. Selected spectral images acquired with additional compression and augmentation maneuvers. Imag es stored on PACS. LIMITATIONS: None. FINDINGS: RIGHT LEG COMMON FEMORAL AND FEMORAL: Normal phasicity, compression and augmentation. No visualized echogenic m aterial on pacheco scale. No defects on color images. POPLITEAL: Normal compression and augmentation. No visualized echogenic material on pacheco scale. No de fects on color images. CALF VESSELS: Normal compression and augmentation. No visualized echogenic material on pacheco scale. No defects on color image. GSV AND SSV: Normal compression. No visualized echogenic material on pacheco scale. No defects on color images. ANY DEEP VENOUS INSUFFICIENCY: Not evaluated. ANY EVIDENCE OF POPLITEAL CYST: No. OTHER: No other significant finding. LEFT LEG COMMON FEMORAL AND FEMORAL: Normal phasicity, compression and augmentation. No visualized echogenic m aterial on pacheco scale. No defects on color images. POPLITEAL: Normal compression and augmentation. No visualized echogenic material on pacheco scale. No de fects on color images. CALF VESSELS: Normal compression and augmentation. No visualized echogenic material on pacheco scale. No defects on color images. GSV AND SSV: Normal compression. No visualized echogenic material on pacheco scale. No defects on color images. ANY DEEP VENOUS INSUFFICIENCY: Not evaluated. ANY EVIDENCE POPLITEAL CYST: No. OTHER: No other significant finding. IMPRESSION: NO EVIDENCE DVT OR SVT IN EITHER LEG. TECHNICAL DOCUMENTATION: JOB ID: [id number] [employer]- All Rights Reserved Reading location - IP/workstation name: [email or web address]
== END ==
LOC: SP 13:17
PROVIDERS: ATTEND Internal Medicine Medical Oncology
DX: M25.569 Pain in unspecified knee (principal)
CPT/HCPCS: 93970

== ENCOUNTER 2018-07-17 18:56 | Emergency (ER) | payer MEDICAID ==
--- NOTE | 2018-07-17 20:08 | ER Document Report ---
ED Medical Screen (RME) - General Chief Complaint: Breathing Difficulty Stated Complaint: DIFFICULTY BREATHING Time Seen by Provider: 07/17/18 20:04 Primary Care Provider: HINA LAW MD [Primary Care Provider] - Follow up as needed Notes: Patient with known COPD who is having a hard time breathing, worse than usual since about 4:30 PM today. She says she just cannot get a deep breath out. She is been coughing without any significant phlegm production. She has had this problem previously and says that BiPAP will sometimes help her condition. Patient has metastatic breast cancer to lung and brain. She is frequently here in the emergency department with similar breathing difficulties. TRAVEL OUTSIDE OF THE [place] IN LAST 30 DAYS: No - Related Data Allergies/Adverse Reactions: latex Allergy (Severe, Verified 06/06/18 17:46) blisters,rash morphine [Morphine] Allergy (Severe, Verified 06/06/18 17:46) short of breath Sulfa (Sulfonamide Antibiotics) Allergy (Intermediate, Verified 06/06/18 17:46) rash adhesive Allergy (Verified 06/06/18 17:46) Plastic tape Adverse Reaction (Uncoded 06/06/18 17:46) Blisters Past Medical History - Past Medical History Cardiac Medical History: Denies: Hx Congestive Heart Failure, Hx Coronary Artery Disease, Hx Heart Attack, Hx Hypertension Pulmonary Medical History: Reports: Hx Asthma, Hx COPD, Hx Pneumonia Denies: Hx Bronchitis Neurological Medical History: Denies: Hx Cerebrovascular Accident, Hx Seizures Renal/ Medical History: Denies: Hx Peritoneal Dialysis Malignancy Medical History: Reports: Hx Breast Cancer - Stage IV, mets to L5 and R & L posterior parietal skull. GI Medical History: Reports: Hx Gastroesophageal Reflux Disease. Denies: Hx Cirrhosis, Hx Ulcer Musculoskeltal Medical History: Reports Hx Arthritis - generalized, Reports Hx Musculoskeletal Deformity, Reports Hx Musculoskeletal Trauma Psychiatric Medical History: Reports: Hx Anxiety Traumatic Medical History: Reports: Hx Fractures Past Surgical History: Reports: Hx Breast Surgery - Right lumpectomy x2 w/ axillary lymph node diseection., Hx Cholecystectomy, Hx Orthopedic Surgery - Left patellar reconstruction, Hx Tonsillectomy, Hx Tubal Ligation. Denies: Hx Hysterectomy - Immunizations Immunizations up to date: Yes Hx Diphtheria, Pertussis, Tetanus Vaccination: No History of Influenza Vaccine for 02/2017 - 07/2017 Season: Yes Influenza Administration Date for 02/2017 - 07/2017 Season: 02/16/18 Physical Exam - Vital signs Vitals: Temp Pulse Resp BP Pulse Ox 98.6 F 118 H 24 H 98/62 L 95 07/17/18 19:09 07/17/18 19:09 07/17/18 19:09 07/17/18 19:09 07/17/18 19:09 Course - Vital Signs Vital signs: Temp Pulse Resp BP Pulse Ox 98.6 F 118 H 24 H 98/62 L 95 07/17/18 19:09 07/17/18 19:09 07/17/18 19:09 07/17/18 19:09 07/17/18 19:09 Doctor's Discharge - Discharge Referrals: HINA LAW MD [Primary Care Provider] - Follow up as needed
[2018-07-17] MEDS ORDERED: IPRATROPIUM/ALBUTEROL 0.5-2.5 MG/3 ML AMPUL NEB ONE ×3 (20:18→20:21)
--- NOTE | 2018-07-17 20:30 | ER Document Report ---
ED General - General Chief Complaint: Breathing Difficulty Stated Complaint: DIFFICULTY BREATHING Time Seen by Provider: 07/17/18 20:04 Primary Care Provider: HINA LAW MD [Primary Care Provider] - Follow up as needed Mode of Arrival: Ambulatory Information source: Patient Notes: This is a 52-year-old female with metastatic breast cancer, history of thrombocy topenia and anemia, history of COPD (continues to smoke) who presents to the emergency room with worsening shortness of breath, wheezing and cough. Patient's symptoms have been going on for the past few days. TRAVEL OUTSIDE OF THE [place] IN LAST 30 DAYS: No - HPI Onset: Last week Onset/Duration: Gradual Quality of pain: No pain Severity: None Pain Level: Denies Associated symptoms: Productive cough, Shortness of breath Exacerbated by: Denies Relieved by: Denies Similar symptoms previously: Yes Recently seen / treated by doctor: Yes - Related Data Allergies/Adverse Reactions: latex Allergy (Severe, Verified 06/06/18 17:46) blisters,rash morphine [Morphine] Allergy (Severe, Verified 06/06/18 17:46) short of breath Sulfa (Sulfonamide Antibiotics) Allergy (Intermediate, Verified 06/06/18 17:46) rash adhesive Allergy (Verified 06/06/18 17:46) Plastic tape Adverse Reaction (Uncoded 06/06/18 17:46) Blisters Past Medical History - General Information source: Patient - Social History Smoking Status: Current Every Day Smoker Cigarette use (# per day): Yes - Half a pack per day Chew tobacco use (# tins/day): No Frequency of alcohol use: None Drug Abuse: None Lives with: Family Family History: Reviewed & Not Pertinent Patient has suicidal ideation: No Patient has homicidal ideation: No - Past Medical History Cardiac Medical History: Denies: Hx Congestive Heart Failure, Hx Coronary Artery Disease, Hx Heart Attack, Hx Hypertension Pulmonary Medical History: Reports: Hx Asthma, Hx COPD, Hx Pneumonia Denies: Hx Bronchitis Neurological Medical History: Denies: Hx Cerebrovascular Accident, Hx Seizures Renal/ Medical History: Denies: Hx Peritoneal Dialysis Malignancy Medical History: Reports: Hx Breast Cancer - Stage IV, mets to L5 and R & L posterior parietal skull. GI Medical History: Reports: Hx Gastroesophageal Reflux Disease. Denies: Hx Cirrhosis, Hx Ulcer Musculoskeletal Medical History: Reports Hx Arthritis - generalized, Reports Hx Musculoskeletal Deformity, Reports Hx Musculoskeletal Trauma Psychiatric Medical History: Reports: Hx Anxiety Traumatic Medical History: Reports: Hx Fractures Past Surgical History: Reports: Hx Breast Surgery - Right lumpectomy x2 w/ axillary lymph node diseection., Hx Cholecystectomy, Hx Orthopedic Surgery - Left patellar reconstruction, Hx Tonsillectomy, Hx Tubal Ligation. Denies: Hx Hysterectomy - Immunizations Immunizations up to date: Yes Hx Diphtheria, Pertussis, Tetanus Vaccination: No Hx Pneumococcal Vaccination: 01/26/15 Review of Systems - Review of Systems Constitutional: denies: Chills, Fever EENT: No symptoms reported Cardiovascular: denies: Chest pain, Palpitations, Heart racing Respiratory: See HPI, Cough, Short of breath, Wheezing. denies: Sputum, Stridor Gastrointestinal: No symptoms reported. denies: Abdomen distended, Abdominal pain Genitourinary: No symptoms reported Female Genitourinary: No symptoms reported Musculoskeletal: No symptoms reported Skin: No symptoms reported Hematologic/Lymphatic: No symptoms reported Neurological/Psychological: No symptoms reported Physical Exam - Vital signs Vitals: Temp Pulse Resp BP Pulse Ox 98.6 F 118 H 24 H 98/62 L 95 07/17/18 19:09 07/17/18 19:09 07/17/18 19:09 07/17/18 19:09 07/17/18 19:09 Notes: Physical exam: GENERAL: 52-year-old woman, chronically ill-appearing, short of breath, audible wheezing HEAD: Atraumatic, normocephalic. EYES: Pupils equal round and reactive to light, extraocular movements intact, sclera anicteric, conjunctiva are normal. ENT: TMs normal, nares patent, oropharynx clear without exudates. Moist mucous membranes. NECK: Normal range of motion, supple without obvious mass or JVD. LUNGS: Bilateral wheezing with accessory muscle use HEART: Regular rate and rhythm without murmurs, rubs or gallops. ABDOMEN: Soft, normoactive bowel sounds. No tenderness to palpation. No guarding, no rebound. No masses appreciated. EXTREMITIES: Tonic lower extremity changes NEUROLOGICAL: Cranial nerves II through XII grossly intact. Normal speech, moving all extremities. PSYCH: Normal mood, normal affect. SKIN: Warm, Dry, normal turgor, no rashes or lesions noted. Course - Re-evaluation Re-evalutation: 07/17/18 20:39 Note: Patient receiving IV Solu-Medrol, duo nebs, BiPAP. DNR discussion: I did discuss with her her desires if she requires a ventilator and CPR. I specifically asked her if her respiratory status worsened to the point of being on a ventilator, is just something she would want. She answered that this is not what she would want. I asked her that if she was to stop breathing, which she want us to put her on a ventilator and she said she did not want this. I asked her that if her heart were to stop, would she want us to do CPR and she said this is not what she would want. I did explain what the term DNR means and she says that is what she wants. Until that time however, she wants all available therapies up to but not including ventilator, CPR. Patient is DNR 07/17/18 21:42 She responded well to the treatment above. She states she feels better and wants to go home. I did offer her admission with continued treatment. However, she is alert and oriented x3 and this is just not what she wants. She lives at home with her dog and she says that her dog RENATA needs her. I explained patient that her labs are not back yet and she states that she knows that her blood counts and platelets will be low because they are every week and she will be in the office on Friday and will probably get a transfusion at that time. In the meantime, I have advised her to return to the ER for any worsening shortness of breath or any bleeding. - Vital Signs Vital signs: Temp Pulse Resp BP Pulse Ox 98.6 F 118 H 24 H 98/62 L 95 07/17/18 19:09 07/17/18 19:09 07/17/18 19:09 07/17/18 19:09 07/17/18 19:09 - Laboratory Result Diagrams: 07/17/18 20:20 07/17/18 20:20 Laboratory results interpreted by me: 07/17/18 20:20 Carbon Dioxide 38 H Anion Gap 2 L AST 38 H Alkaline Phosphatase 368 H Total Protein 5.3 L Albumin 2.7 L - Diagnostic Test Radiology reviewed: Image reviewed, Reports reviewed - Chest x-ray shows chronic changes, possible small bilateral pleural effusions. Discharge - Discharge Clinical Impression: COPD exacerbation Condition: Stable Disposition: HOME, SELF-CARE Additional Instructions: As we discussed, the blood work is not back yet but we expect that your platelets will be very low. I want you to continue to follow-up with Dr. Law on Friday as planned for possible platelet transfusions. In the meantime, take the antibiotics as prescribed. Continue with the prednisone. I refilled your Qvar. Return to the emergency room for any worsening shortness of breath. Prescriptions: Beclomethasone Dipropionate [Qvar] 1 - 2 inh IH BID PRN #1 aer.w.adap PRN Reason: Doxycycline Hyclate 100 mg PO BID #20 capsule Prednisone [Deltasone 20 mg Tablet] 3 tab PO DAILY 5 Days tablet Referrals: HINA LAW MD [Primary Care Provider] - 07/20/18
[2018-07-17] MEDS: METHYLPREDNISOLONE INJ 125 MG/2 ML SDV IV ONE ×2 (20:47→20:54)
[2018-07-17 21:04] LABS: HEMATOCRIT 23.5 % (36.0-47.0); MEAN CORPUSCULAR HEMOGLOBIN 32.8 pg (27.0-33.4); MEAN CORPUSCULAR HGB CONC 34.1 g/dL (32.0-36.0); MEAN CORPUSCULAR VOLUME 96 fl (80-97); RED BLOOD COUNT 2.44 10^6/uL (3.72-5.28); RED CELL DISTRIBUTION WIDTH 19.8 % (11.5-14.0)
[2018-07-17 21:13] LABS: PLATELET COUNT 8 10^3/uL (150-450)
--- NOTE | 2018-07-17 21:13 | RADIOLOGY REPORT (SQ) ---
EXAM DESCRIPTION: XR CHEST 1 VIEW COMPLETED DATE/TME: 07/17/2018 20:05 CLINICAL HISTORY: 52 years, Female, COPD, difficulty breathing Comparison: None FINDINGS: Bibasilar pulmonary opacities. Small bilateral pleural effusions. Cardiac silhouette is at the upper limits of normal for size. Diffuse prominence of the pulmonary interstitium may be related to edema versus chronic lung changes IMPRESSION: Bibasilar subsegmental atelectasis and small bilateral pleural effusions.
[2018-07-17 21:14] LABS: ALANINE AMINOTRANSFERASE 19 U/L (9-52); ALBUMIN 2.7 g/dL (3.5-5.0); ALKALINE PHOSPHATASE 368 U/L (38-126); ASPARTATE AMINO TRANSFERASE 38 U/L (14-36); BILIRUBIN,DIRECT 0.3 mg/dL (0.0-0.4); BILIRUBIN,TOTAL 0.7 mg/dL (0.2-1.3); BLOOD UREA NITROGEN 11 mg/dL (7-20); CALCIUM 8.4 mg/dL (8.4-10.2); GLUCOSE 83 mg/dL (75-110); POTASSIUM 4.5 mmol/L (3.6-5.0); TOTAL PROTEIN 5.3 g/dL (6.3-8.2)
[2018-07-17 21:20] LABS: ANION GAP 2 (5-19); CARBON DIOXIDE 38 mmol/L (22-30); CHLORIDE 98 mmol/L (98-107); SODIUM 138.4 mmol/L (137-145)
[2018-07-17 21:28] LABS: BAND NEUTROPHILS % (MANUAL) 2 % (3-5); BASOPHILS % (MANUAL) 0 % (0-2); EOSINOPHILS % (MANUAL) 0 % (0-6); LYMPHOCYTES % (MANUAL) 19 % (13-45); MONOCYTES % (MANUAL) 4 % (3-13); SEGMENTED NEUTROPHILS % (MAN) 75 % (42-78); TOTAL CELLS COUNTED 100
[2018-07-17 21:32] LABS: PLATELET COMMENT DECREASED; POLYCHROMASIA 1+
[2018-07-17 21:36] LABS: ANISOCYTOSIS 2+; OVALOCYTES SLIGHT
[2018-07-17 21:47] VITALS: BP 97/60
[2018-07-17 21:48] LABS: WHITE BLOOD COUNT 5.6 10^3/uL (4.0-10.5)
[2018-07-17 21:52] LABS: ABSOLUTE LYMPHOCYTES# (MANUAL) 1.1 10^3/uL (0.5-4.7); ABSOLUTE MONOCYTES # (MANUAL) 0.2 10^3/uL (0.1-1.4); ABSOLUTE NEUTROPHILS# (MANUAL) 4.3 10^3/uL (1.7-8.2)
[2018-07-17 21:56] LABS: NUCLEATED RED BLOOD CELLS 18 /100 WBC (0)
== END 2018-07-17 21:47 | disposition home or self-care (01) ==
LOC: ER 18:56
DX: J44.1 Chronic obstructive pulmonary disease with (acute) exacerbation (principal); R06.02 Shortness of breath; R05 Cough; R06.2 Wheezing; C50.919 Malignant neoplasm of unspecified site of unspecified female breast; F17.210 Nicotine dependence, cigarettes, uncomplicated
CPT/HCPCS: 94640 ×2; 99285; 96374; 36415; 87040; 85025; 80053; 71045; 94660; J2930; J7620

== ENCOUNTER → 2018-07-24 | Outpatient (CLI) | payer MEDICAID ==
[2018-07-24 13:59] LABS: HEMATOCRIT 23.7 % (36.0-47.0); HEMOGLOBIN 8.2 g/dL (12.0-15.5); MEAN CORPUSCULAR HEMOGLOBIN 33.2 pg (27.0-33.4); MEAN CORPUSCULAR HGB CONC 34.8 g/dL (32.0-36.0); MEAN CORPUSCULAR VOLUME 95 fl (80-97); RED BLOOD COUNT 2.48 10^6/uL (3.72-5.28); RED CELL DISTRIBUTION WIDTH 18.6 % (11.5-14.0); WHITE BLOOD COUNT 5.4 10^3/uL (4.0-10.5)
[2018-07-24 14:00] LABS: APPEARANCE,URINE CLEAR; BILIRUBIN,URINE NEGATIVE (NEGATIVE); COLOR,URINE YELLOW; GLUCOSE, URINE NEGATIVE (NEGATIVE); KETONES,URINE NEGATIVE (NEGATIVE); LEUKOCYTE ESTERASE,URINE NEGATIVE (NEGATIVE); NITRITE,URINE NEGATIVE (NEGATIVE); PROTEIN,URINE NEGATIVE (NEGATIVE); URINE SPECIFIC GRAVITY 1.016
[2018-07-24 14:16] LABS: ARTERIAL BLOOD BASE EXCESS 6.4 mmol/L; ARTERIAL BLOOD H2CO3 1.68 mmol/L (1.05-1.35); ARTERIAL BLOOD HCO3 32.5 mmol/L (20-24); ARTERIAL BLOOD O2 SATURATION 95.5 % (94-98); ARTERIAL BLOOD PCO2 55.9 mmHg (35-45); ARTERIAL BLOOD PH 7.38 (7.35-7.45); ARTERIAL BLOOD TOTAL CO2 34.2 mmol/L (21-25)
[2018-07-24 14:19] LABS: ARTERIAL BLOOD FIO2 4L
[2018-07-24 14:34] LABS: ABSOLUTE LYMPHOCYTES# (MANUAL) 0.8 10^3/uL (0.5-4.7); ABSOLUTE MONOCYTES # (MANUAL) 0.5 10^3/uL (0.1-1.4); ABSOLUTE NEUTROPHILS# (MANUAL) 4.1 10^3/uL (1.7-8.2); BAND NEUTROPHILS % (MANUAL) 5 % (3-5); BASOPHILS % (MANUAL) 0 % (0-2); EOSINOPHILS % (MANUAL) 0 % (0-6); LYMPHOCYTES % (MANUAL) 15 % (13-45); METAMYELOCYTES % (MANUAL) 1 % (0); MONOCYTES % (MANUAL) 10 % (3-13); NUCLEATED RED BLOOD CELLS 20 /100 WBC (0); SEGMENTED NEUTROPHILS % (MAN) 69 % (42-78); TOTAL CELLS COUNTED 100
[2018-07-24 14:38] LABS: ALANINE AMINOTRANSFERASE 26 U/L (9-52); ALBUMIN 2.9 g/dL (3.5-5.0); ALKALINE PHOSPHATASE 345 U/L (38-126); ASPARTATE AMINO TRANSFERASE 55 U/L (14-36); BILIRUBIN,DIRECT 0.4 mg/dL (0.0-0.4); BILIRUBIN,TOTAL 0.8 mg/dL (0.2-1.3); BLOOD UREA NITROGEN 17 mg/dL (7-20); CALCIUM 8.4 mg/dL (8.4-10.2); GLUCOSE 131 mg/dL (75-110); POTASSIUM 4.5 mmol/L (3.6-5.0); TOTAL PROTEIN 5.6 g/dL (6.3-8.2)
[2018-07-24 14:40] LABS: ANISOCYTOSIS 2+; PLATELET COMMENT DECREASED; POLYCHROMASIA SLIGHT
[2018-07-24 14:43] LABS: ANION GAP 5 (5-19); CARBON DIOXIDE 34 mmol/L (22-30); CHLORIDE 94 mmol/L (98-107); SODIUM 132.9 mmol/L (137-145)
[2018-07-24 15:13] LABS: PLATELET COUNT 8 10^3/uL (150-450)
== END ==
LOC: OD 12:48
PROVIDERS: ATTEND Nurse Practitioner
DX: R09.02 Hypoxemia (principal); R53.1 Weakness
CPT/HCPCS: 36415; 36600; 80053; 81001; 82803; 85025

== ENCOUNTER 2018-07-26 14:50 | Inpatient (IN) | payer MEDICAID ==
[2018-07-26 15:23] LABS: VENOUS BLOOD BASE EXCESS 5.8 mmol/L; VENOUS BLOOD HCO3 34.6 mmol/L (20-32); VENOUS BLOOD PH 7.31 (7.30-7.42)
[2018-07-26 15:25] LABS: VENOUS BLOOD PCO2 70.5 mmHg (35-63)
[2018-07-26] MEDS ORDERED: LORAZEPAM INJ 2 MG/1 ML VIAL IV ONE (15:26)
--- NOTE | 2018-07-26 15:49 | RADIOLOGY REPORT (SQ) ---
EXAM DESCRIPTION: CHEST SINGLE VIEW COMPLETED DATE/TIME: 07/26/2018 3:35 pm REASON FOR STUDY: bed 10 sepsis protocol. Metastatic breast cancer. COMPARISON: Chest x-ray 07/17/2018. CT abdomen and pelvis 07/05/2018. EXAM PARAMETERS: NUMBER OF VIEWS: One view. TECHNIQUE: Single frontal radiographic view of the chest acquired. RADIATION DOSE: NA LIMITATIONS: None. FINDINGS: LUNGS AND PLEURA: There are small bilateral pleural effusions with bibasilar airspace opac ities. No pneumothorax. MEDIASTINUM AND HILAR STRUCTURES: Contour normal. HEART AND VASCULAR STRUCTURES: The heart is mildly enlarged. There is mild vascular congestion. BONES: Diffuse sclerotic osseous lesions, consistent with known metastases. HARDWARE: None in the chest. IMPRESSION: 1. Small bilateral pleural effusions with bibasilar airspace opacities, may represent at electasis or pneumonia. 2. Mild cardiomegaly and mild vascular congestion. 3. Osseous metastases. TECHNICAL DOCUMENTATION: JOB ID: [id number] 2010 [employer] [employer]- All Rights Reserved Reading location - IP/workstation name: [email or web address]
[2018-07-26] MEDS ORDERED: METHYLPREDNISOLONE INJ 125 MG/2 ML SDV IV ONE (15:57)
[2018-07-26] MEDS ORDERED: LEVOFLOXACIN 500 MG/D5W RTU 500 MG/100 ML RTUPB IV SCH (16:00)
--- NOTE | 2018-07-26 16:02 | ER Document Report ---
Addendum entered and electronically signed by DIONICIO RICHARD PA-C 07/26/18 19:53: Course - Re-evaluation Re-evalutation: 07/26/18 19:51 cannot get ahold of hospitalist, nurse still trying to call, I ordered platelets for her, she has a worsening rash to the extremities, I am concerned for DIC at this time. awaiting hospitalist callback. - Vital Signs Vital signs: Temp Pulse Resp BP Pulse Ox 82 27 H 97 07/26/18 19:25 07/26/18 19:46 07/26/18 19:46 - Laboratory Result Diagrams: 07/26/18 17:41 07/26/18 17:41 Laboratory results interpreted by me: 07/26/18 07/26/18 15:06 15:06 VBG pCO2 70.5 H* VBG HCO3 34.6 H Lactic Acid 0.5 L Original Note: ED Respiratory Problem - General Chief Complaint: Respiratory Distress Stated Complaint: DIFFICULTY BREATHING Time Seen by Provider: 07/26/18 15:05 Mode of Arrival: Medic Information source: Patient, Emergency Med Personnel Notes: Patient is a 52-year-old female with a history of COPD, on 2 L of oxygen at home all the time, recent pasteurella cellulitis, stage IV metastatic breast cancer who presents to the ER today for shortness of breath, respiratory distress, fam aditi apparently found her at home like this, having difficulty breathing. Patient is unable to give me much history, is conscious but currently having difficulty breathing and is unable to really talk through labored breathing. Is anxious and keeps saying "take this mask off me, take this mask off me." Family never showed up. TRAVEL OUTSIDE OF THE [place] IN LAST 30 DAYS: No - Related Data Allergies/Adverse Reactions: latex Allergy (Severe, Verified 06/06/18 17:46) blisters,rash morphine [Morphine] Allergy (Severe, Verified 06/06/18 17:46) short of breath Sulfa (Sulfonamide Antibiotics) Allergy (Intermediate, Verified 06/06/18 17:46) rash adhesive Allergy (Verified 06/06/18 17:46) Plastic tape Adverse Reaction (Uncoded 06/06/18 17:46) Blisters Past Medical History - General Information source: Patient - Social History Smoking Status: Current Every Day Smoker Chew tobacco use (# tins/day): No Family History: Reviewed & Not Pertinent Patient has suicidal ideation: No Patient has homicidal ideation: No - Past Medical History Cardiac Medical History: Denies: Hx Congestive Heart Failure, Hx Coronary Artery Disease, Hx Heart Attack, Hx Hypertension Pulmonary Medical History: Reports: Hx Asthma, Hx COPD, Hx Pneumonia Denies: Hx Bronchitis Neurological Medical History: Denies: Hx Cerebrovascular Accident, Hx Seizures Renal/ Medical History: Denies: Hx Peritoneal Dialysis Malignancy Medical History: Reports: Hx Breast Cancer - Stage IV, mets to L5 and R & L posterior parietal skull. GI Medical History: Reports: Hx Gastroesophageal Reflux Disease. Denies: Hx Cirrhosis, Hx Ulcer Musculoskeletal Medical History: Reports Hx Arthritis - generalized, Reports Hx Musculoskeletal Deformity, Reports Hx Musculoskeletal Trauma Psychiatric Medical History: Reports: Hx Anxiety Traumatic Medical History: Reports: Hx Fractures Past Surgical History: Reports: Hx Breast Surgery - Right lumpectomy x2 w/ axillary lymph node diseection., Hx Cholecystectomy, Hx Orthopedic Surgery - Left patellar reconstruction, Hx Tonsillectomy, Hx Tubal Ligation. Denies: Hx Hysterectomy - Immunizations Immunizations up to date: Yes Hx Diphtheria, Pertussis, Tetanus Vaccination: No Hx Pneumococcal Vaccination: 01/26/15 Review of Systems - Review of Systems Constitutional: No symptoms reported EENT: No symptoms reported Cardiovascular: No symptoms reported Respiratory: See HPI Gastrointestinal: No symptoms reported Genitourinary: No symptoms reported Female Genitourinary: No symptoms reported Musculoskeletal: No symptoms reported Skin: See HPI Hematologic/Lymphatic: No symptoms reported Neurological/Psychological: No symptoms reported Physical Exam - Vital signs Vitals: Resp Pulse Ox 24 H 96 07/26/18 15:03 07/26/18 15:03 - Notes Notes: PHYSICAL EXAMINATION: GENERAL: In obvious acute respiratory distress. HEAD: Atraumatic, normocephalic. EYES: Pupils equal round and reactive to light, extraocular movements intact, sclera anicteric, conjunctiva are normal. ENT: Airway patent, dry mucous membranes, chapped lips NECK: Normal range of motion, supple without lymphadenopathy LUNGS: Moderate expiratory wheezes, no rales or rhonchi. HEART: Tachycardia with regular rhythm without murmurs ABDOMEN: Soft, no tenderness. No guarding, no rebound EXTREMITIES: Normal range of motion, no pitting edema. No cyanosis. NEUROLOGICAL: Unable to assess PSYCH: Unable to assess SKIN: Warm, Dry, bilateral lower extremities with venous stasis as well as erythema, tender to palpation Course - Re-evaluation Re-evalutation: 07/26/18 16:02 Patient has bilateral opacities, probably atelectasis but is covered for pneumonia at this time with Levaquin, given IV fluids, placed on BiPAP as soon as she arrived and has been doing much better after that, actually was able to fall asleep on BiPAP, no longer working hard to breathe. PCO2 of 70, she is admitted at this time for hypoxia and hypercapnia, stable on BiPAP. Dr. Song accepted admission at this time. 07/26/18 19:23 For some reason there was a major delay in CBC and platelets just came back as 5, hemoglobin of 7.6, she is already admitted, hospitalist is being contacted by nurse. - Vital Signs Vital signs: Temp Pulse Resp BP Pulse Ox 25 H 100 07/26/18 18:00 07/26/18 18:00 - Laboratory Result Diagrams: 07/26/18 17:41 07/26/18 17:41 Laboratory results interpreted by me: 07/26/18 07/26/18 15:06 15:06 VBG pCO2 70.5 H* VBG HCO3 34.6 H Lactic Acid 0.5 L Critical Care Note - Critical Care Note Total time excluding time spent on procedures (mins): 35 - 35___ minutes spent in critical care time with patient, consulted with attending, speaking with family, placing orders and evaluating tests and labs. Discharge - Discharge Clinical Impression: Venous stasis of lower extremity Acute and chronic respiratory failure Qualifiers: Respiratory failure complication: hypoxia and hypercapnia Qualified Code(s): J96.21 - Acute and chronic respiratory failure with hypoxia Condition: Fair Disposition: ADMITTED INPATIENT Admitting Provider: Hospitalist - Dr. Song Unit Admitted: [facility]
[2018-07-26] MEDS ORDERED: DEXTROSE 40% GEL 15 GM TUBE PO PRN ×2 (17:36)
[2018-07-26] MEDS ORDERED: GLUCAGON,HUMAN RECOMB 1 MG INJ SUBCUT PRN (17:36)
[2018-07-26] MEDS ORDERED: DEXTROSE 50%-WATER 25 GM/50 ML DISP.SYRIN IV PRN ×2 (17:36)
[2018-07-26 17:58] LABS: HEMATOCRIT 22.3 % (36.0-47.0); MEAN CORPUSCULAR HGB CONC 34.2 g/dL (32.0-36.0); MEAN CORPUSCULAR VOLUME 97 fl (80-97); RED BLOOD COUNT 2.31 10^6/uL (3.72-5.28); RED CELL DISTRIBUTION WIDTH 20.5 % (11.5-14.0); WHITE BLOOD COUNT 4.9 10^3/uL (4.0-10.5)
[2018-07-26 18:01] LABS: INTERNATIONAL RATION (INR) 1.12
--- NOTE | 2018-07-26 18:10 | PDOC H&P ---
History of Present Illness Admission Date/PCP: 07/26/18 17:08 MORAIMA JARQUIN NP Patient complains of: SOB History of Present Illness: JEAN CARLOS FRIAS is a 52 year old female with a history of metastatic breast cancer, HIV/AIDS, COPD on 5L O2 who developed acute respiratory distress at home today. All history is obtained by patient's friend who is at the bedside. Patient was at home and being seen by her family when she became acutely SOB. She became notably confused. She has been compliant with her O2. Not complaining of recent illness, fevers, chills, per her friend. Patient does have a history of breast cancer and is on active oral therapy with Dr. Cardoso. She also was recently admitted for Pasteurella bactermia around 2 weeks ago. No additional information is obtained. EMS found patient to have O2 sat of 82. His ABG showed CO2 retention. She was started on BIPAP. Will be admitted to hospitalist service. Past Medical History Cardiac Medical History: Denies: Congestive Heart Failure, Coronary Artery Disease, Myocardial Infarction, Hypertension Pulmonary Medical History: Reports: Asthma, Chronic Obstructive Pulmonary Disease (COPD), Pneumonia Denies: Bronchitis Neurological Medical History: Denies: Seizures Malignancy Medical History: Reports: Breast Cancer - Stage IV, mets to L5 and R & L posterior parietal skull. GI Medical History: Reports: Gastroesophageal Reflux Disease Denies: Cirrhosis Musculoskeltal Medical History: Reports: Arthritis - generalized Hematology: Reports: Anemia, Bleeding Tendencies Past Surgical History Past Surgical History: Reports: Cholecystectomy, Orthopedic Surgery - Left patellar reconstruction, Tonsillectomy, Tubal Ligation Denies: Hysterectomy Social History Information Source: Patient Lives with: Friend Smoking Status: Current Every Day Smoker Frequency of Alcohol Use: None Hx Recreational Drug Use: No Drugs: None Hx Prescription Drug Abuse: No Family History Family History: Reviewed & Not Pertinent Parental Family History Reviewed: No Children Family History Reviewed: NA Sibling(s) Family History Reviewed.: NA Medication/Allergy Home Medications: Albuterol Sulfate [Albuterol Sulfate 2.5mg/3 mL] 1 vial IH Q6H PRN 10/28/13 Beclomethasone Dipropionate [Qvar] 2 inh IH BID 10/28/13 Emtricitabine/Tenofovir [Truvada Tablet] 1 each PO QHS 10/28/13 Raltegravir Potassium [Isentress 400 mg Tablet] 400 mg PO BID 10/28/13 Calcium Carbonate/Vitamin D3 [Calcium + Vitamin D Tablet] 1 tab PO DAILY 02/07/14 Ipratropium [place] [Atrovent Hfa] 17 mcg IH QID 02/07/14 Multivitamin [Daily Vitamin] 1 each PO DAILY 02/07/14 Oxycodone HCl 30 mg PO Q4 PRN 02/07/14 Atovaquone 10 ml PO DAILY 11/02/15 Pregabalin [Lyrica] 1 cap PO QID 11/02/15 Letrozole [Femara 2.5 Mg Tablet] 2.5 mg PO DAILY 03/28/17 Albuterol Sulfate [Proair HFA] 2 inhaler IH Q4H PRN 02/18/18 Benzonatate [Tessalon Perle 100 mg Capsule] 100 mg PO Q8HP PRN #40 cap 02/18/18 Budesonide [Pulmicort] 0.5 mg IH BID 02/18/18 Doxycycline Hyclate 100 mg PO BID #14 capsule 02/18/18 Flu Vacc [id number](6Mos Up)/Pf [Fluarix Adlt Quad Vac 0.5 ml Syr] 0.5 ml SQ Q360D 02/18/18 Loratadine 10 mg PO DAILY 02/18/18 Metoclopramide HCl 10 mg PO QID 02/18/18 Omeprazole 40 mg PO BID 02/18/18 Palbociclib [Ibrance] 125 mg PO DAILY 02/18/18 Prednisone [Deltasone 20 mg Tablet] 2 tab PO DAILY 5 Days tablet 02/25/18 Benzonatate [Tessalon Perles 100 mg Capsule] 100 mg PO Q8HP PRN #40 capsule 04/19/18 Prednisone [Deltasone 20 mg Tablet] 2 tab PO DAILY 5 Days tablet 04/19/18 Doxycycline Hyclate 100 mg PO BID #14 capsule 05/14/18 Doxycycline Hyclate 100 mg PO BID 7 Days #14 capsule 05/14/18 Benzonatate [Tessalon Perle 100 mg Capsule] 100 mg PO Q8HP PRN #30 cap 05/31/18 Furosemide [Lasix 20 mg Tablet] 20 mg PO DAILY #14 tablet 05/31/18 Beclomethasone Dipropionate [Qvar] 1 - 2 inh IH BID PRN #1 aer.w.adap 07/17/18 Doxycycline Hyclate 100 mg PO BID #20 capsule 07/17/18 Prednisone [Deltasone 20 mg Tablet] 3 tab PO DAILY 5 Days tablet 07/17/18 Allergies/Adverse Reactions: latex Allergy (Severe, Verified 06/06/18 17:46) blisters,rash morphine [Morphine] Allergy (Severe, Verified 06/06/18 17:46) short of breath Sulfa (Sulfonamide Antibiotics) Allergy (Intermediate, Verified 06/06/18 17:46) rash adhesive Allergy (Verified 06/06/18 17:46) Plastic tape Adverse Reaction (Uncoded 06/06/18 17:46) Blisters Review of Systems ROS unobtainable: Due to mental status Physical Exam Vital Signs: Temp Pulse Resp BP Pulse Ox 24 H 96 07/26/18 15:03 07/26/18 15:03 Intake & Output 07/25/18 07/26/18 07/27/18 05:59 06:59 06:59 Weight 89.811 kg General appearance: PRESENT: mild distress, obese, other - BiPAP in place; sleeping Head exam: PRESENT: atraumatic, normocephalic Mouth exam: PRESENT: other - Unable to assess due to BiPAP Respiratory exam: PRESENT: rhonchi, other - On BipAP support Cardiovascular exam: PRESENT: +S1, +S2, tachycardia GI/Abdominal exam: PRESENT: soft. ABSENT: tenderness Extremities exam: PRESENT: +1 edema, other - Chronic venous stasis, erythematous bilaterally Neurological exam: PRESENT: altered, other - Unable to assess due to mental stasis Skin exam: PRESENT: mottled, warm, other - Petechia on chest wall Results Laboratory Results: 07/26/18 07/26/18 15:06 15:06 VBG pH 7.31 VBG pCO2 70.5 H* VBG HCO3 34.6 H VBG Base Excess 5.8 Lactic Acid 0.5 L Impressions: Chest X-Ray 07/26/18 14:52 IMPRESSION: 1. Small bilateral pleural effusions with bibasilar airspace opacities, may represent atelectasis or pneumonia. 2. Mild cardiomegaly and mild vascular congestion. 3. Osseous metastases. Assessment & Plan - Diagnosis (1) Acute and chronic respiratory failure Qualifiers: Respiratory failure complication: hypoxia and hypercapnia Qualified Code(s): J96.21 - Acute and chronic respiratory failure with hypoxia; J96.22 - Acute and chronic respiratory failure with hypercapnia Is this a current diagnosis for this admission?: Yes Plan: LIkely due to acute COPD exacerbation and PNA. No known history of lung metastasis - CXR with bibasilar infiltrates, labs still pending - Blood cultures ordered - Will treat with Levaquin for CAP; low threshold for escalating to broader spectrum since patient is exposed to healthcare (chemo) - COntinue BiPAP - Repeat ABG in AM - Supportive care with carito, respiratory care (2) Metastatic breast cancer Is this a current diagnosis for this admission?: Yes Plan: Follows with Dr. Cardoso -Appears to be on oral agents; holding for now -Consulted oncology for continuity of care and management assistance (3) COPD (chronic obstructive pulmonary disease) Qualifiers: COPD type: emphysema Is this a current diagnosis for this admission?: Yes Plan: Long standing history of COPD - Management per above (4) Pasteurella cellulitis due to cat bite Is this a current diagnosis for this admission?: Yes Plan: Per friend, has completed treatment - Follow up blood cultures - Currently on Levaquin which will treat Pasteurella - Time Time Spent: 50 to 70 Minutes Critical Time spent with patient: 15-24 minutes - Inpatient Certification Medical Necessity: Significant Comorbidiites Make Outpatient Treatment Too Risky, Need Close Monitoring Due to Risk of Patient Decompensation, Need for IV Antibiotics
[2018-07-26 18:15] LABS: ALANINE AMINOTRANSFERASE 25 U/L (9-52); ALBUMIN 2.6 g/dL (3.5-5.0); ALKALINE PHOSPHATASE 317 U/L (38-126); ASPARTATE AMINO TRANSFERASE 45 U/L (14-36); BILIRUBIN,DIRECT 0.6 mg/dL (0.0-0.4); BILIRUBIN,TOTAL 1.2 mg/dL (0.2-1.3); BLOOD UREA NITROGEN 14 mg/dL (7-20); CALCIUM 7.6 mg/dL (8.4-10.2); CREATINE KINASE 26 U/L (30-135); GLUCOSE 93 mg/dL (75-110); POTASSIUM 4.2 mmol/L (3.6-5.0); TOTAL PROTEIN 5.2 g/dL (6.3-8.2)
[2018-07-26 18:21] LABS: ANION GAP 5 (5-19); CARBON DIOXIDE 33 mmol/L (22-30); CHLORIDE 96 mmol/L (98-107); SODIUM 133.6 mmol/L (137-145)
[2018-07-26 18:22] LABS: ABSOLUTE NEUTROPHILS# (MANUAL) 3.8 10^3/uL (1.7-8.2); BAND NEUTROPHILS % (MANUAL) 4 % (3-5); BASOPHILS % (MANUAL) 0 % (0-2); EOSINOPHILS % (MANUAL) 3 % (0-6); LYMPHOCYTES % (MANUAL) 18 % (13-45); METAMYELOCYTES % (MANUAL) 1 % (0); MONOCYTES % (MANUAL) 0 % (3-13); NUCLEATED RED BLOOD CELLS 18 /100 WBC (0); SEGMENTED NEUTROPHILS % (MAN) 72 % (42-78); TOTAL CELLS COUNTED 100
[2018-07-26 18:26] LABS: CREATINE KINASE MB 0.33 ng/mL (<4.55); TROPONIN I 0.016 ng/mL
[2018-07-26 18:28] LABS: ANISOCYTOSIS 2+; PLATELET COMMENT DECREASED; POLYCHROMASIA 1+
[2018-07-26 18:30] LABS: HEMOGLOBIN 7.6 g/dL (12.0-15.5)
[2018-07-26 18:31] LABS: PLATELET COUNT 5 10^3/uL (150-450)
[2018-07-26] MEDS: ALBUTEROL SULFATE 0.083% NEB 2.5 MG/3 ML AMPUL NEB SCH (19:21)
[2018-07-26] MEDS ORDERED: NORMAL SALINE 250 ML IV PRN (19:42)
[2018-07-26] MEDS ORDERED: VANCOMYCIN HCL INJ 1000 MG VIAL IV PRN (20:12)
[2018-07-26] MEDS ORDERED: VANCOMYCIN HCL 0 MG in DEXTROSE 5%-WATER 250 ML IV NR (20:15)
[2018-07-26] MEDS ORDERED: VANCOMYCIN HCL INJ 1000 MG VIAL ONE (20:55)
[2018-07-26] MEDS ORDERED: VANCOMYCIN HCL INJ 500 MG VIAL ONE (20:56)
[2018-07-26] MEDS ORDERED: VANCOMYCIN HCL 1,500 MG in DEXTROSE 5%-WATER 250 ML IV ONE (21:00)
[2018-07-26] MEDS: NORMAL SALINE 1000 ML 1,000 ML IV PRN (21:17)
[2018-07-26] MEDS ORDERED: HALOPERIDOL LACTATE INJ 5 MG/1 ML VIAL ONE (23:02)
[2018-07-26 23:18] LABS: ARTERIAL BLOOD BASE EXCESS 7.5 mmol/L; ARTERIAL BLOOD FIO2 40%; ARTERIAL BLOOD H2CO3 1.44 mmol/L (1.05-1.35); ARTERIAL BLOOD HCO3 32.3 mmol/L (20-24); ARTERIAL BLOOD PH 7.45 (7.35-7.45); ARTERIAL BLOOD PO2 88.6 mmHg (80-100); ARTERIAL BLOOD TOTAL CO2 33.8 mmol/L (21-25)
--- NOTE | 2018-07-26 23:18 | Progress Note ---
Provider Note Provider Note: MD contacted by patient's nurse for delirium and agitation. Patient is oriented x1, removing BiPAP IV lines and physically threatening. Vital signs with hypoxia and tachypnea and tachycardia noted, medication reconciliation reviewed. Patient requiring BiPAP and blood products. She is ordered IV Haldol, soft wris t restraints, sensory deprivation and follow-up ABG.
[2018-07-26] MEDS ORDERED: HALOPERIDOL LACTATE INJ 5 MG/1 ML VIAL IV ONE (23:30)
[2018-07-26] MEDS: FAMOTIDINE INJ/PF 20 MG/2 ML SDV IV SCH (23:37)
[2018-07-26] MEDS: EMTRICITABINE/TENOFOVIR 200-300 MG TABLET PO SCH (23:38)
[2018-07-26] MEDS: RALTEGRAVIR POTASSIUM 400 MG TABLET PO SCH (23:38)
[2018-07-26 23:45] LABS: APPEARANCE,URINE CLEAR; BILIRUBIN,URINE NEGATIVE (NEGATIVE); COLOR,URINE YELLOW; GLUCOSE, URINE NEGATIVE (NEGATIVE); KETONES,URINE 20 mg/dL (NEGATIVE); LEUKOCYTE ESTERASE,URINE NEGATIVE (NEGATIVE); NITRITE,URINE NEGATIVE (NEGATIVE); PROTEIN,URINE NEGATIVE (NEGATIVE); URINE SPECIFIC GRAVITY 1.011
--- NOTE | 2018-07-27 01:25 | EKG REPORT ---
SEVERITY:- BORDERLINE ECG - SINUS TACHYCARDIA PROBABLE LEFT ATRIAL ABNORMALITY : Confirmed by: Alexia Campos MD 27-Jul-2018 01:25:12
[2018-07-27] MEDS ORDERED: PREGABALIN 75 MG CAPSULE PO ONE (02:00)
[2018-07-27] MEDS ORDERED: HALOPERIDOL LACTATE INJ 5 MG/1 ML VIAL ONE (02:05)
[2018-07-27] MEDS: HALOPERIDOL LACTATE INJ 5 MG/1 ML VIAL IV PRN ×2 (02:09→20:30)
[2018-07-27] MEDS ORDERED: HALOPERIDOL LACTATE INJ 5 MG/1 ML VIAL IV ONE (04:45)
[2018-07-27 05:33] LABS: ARTERIAL BLOOD BASE EXCESS 8.4 mmol/L; ARTERIAL BLOOD H2CO3 1.35 mmol/L (1.05-1.35); ARTERIAL BLOOD HCO3 32.7 mmol/L (20-24); ARTERIAL BLOOD O2 SATURATION 97.5 % (94-98); ARTERIAL BLOOD PCO2 44.9 mmHg (35-45); ARTERIAL BLOOD PH 7.48 (7.35-7.45); ARTERIAL BLOOD PO2 93.6 mmHg (80-100); ARTERIAL BLOOD TOTAL CO2 34.1 mmol/L (21-25)
[2018-07-27 05:35] LABS: ARTERIAL BLOOD FIO2 40%
[2018-07-27 05:36] LABS: HEMATOCRIT 20.7 % (36.0-47.0); MEAN CORPUSCULAR HGB CONC 34.3 g/dL (32.0-36.0); MEAN CORPUSCULAR VOLUME 96 fl (80-97); RED BLOOD COUNT 2.15 10^6/uL (3.72-5.28); RED CELL DISTRIBUTION WIDTH 20.2 % (11.5-14.0); WHITE BLOOD COUNT 6.4 10^3/uL (4.0-10.5)
[2018-07-27] MEDS ORDERED: HYDROMORPHONE HCL INJ/PF 2 MG/ML AMPULE ONE (05:38)
[2018-07-27 05:41] LABS: FIBRINOGEN 434 mg/dL (209-497); INTERNATIONAL RATION (INR) 1.18; PARTIAL THROMBOPLASTIN TIME 31.6 SEC (23.5-35.8); PROTHROMBIN TIME 15.6 SEC (11.4-15.4)
[2018-07-27] MEDS ORDERED: HYDROMORPHONE HCL INJ/PF 2 MG/ML AMPULE IV ONE (05:45)
[2018-07-27 05:50] LABS: ANION GAP 6 (5-19); BLOOD UREA NITROGEN 15 mg/dL (7-20); CALCIUM 8.1 mg/dL (8.4-10.2); CARBON DIOXIDE 32 mmol/L (22-30); CHLORIDE 99 mmol/L (98-107); GLUCOSE 120 mg/dL (75-110); POTASSIUM 3.6 mmol/L (3.6-5.0); SODIUM 137.2 mmol/L (137-145)
[2018-07-27 06:00] LABS: D-DIMER 4.87 ug/mL (0.00-0.50)
[2018-07-27 06:03] LABS: HEMOGLOBIN 7.1 g/dL (12.0-15.5)
[2018-07-27 06:04] LABS: PLATELET COUNT 12 10^3/uL (150-450)
[2018-07-27 06:08] LABS: ABSOLUTE LYMPHOCYTES# (MANUAL) 1.2 10^3/uL (0.5-4.7); ABSOLUTE MONOCYTES # (MANUAL) 0.2 10^3/uL (0.1-1.4); ANISOCYTOSIS 3+; BASOPHILS % (MANUAL) 0 % (0-2); EOSINOPHILS % (MANUAL) 0 % (0-6); LYMPHOCYTES % (MANUAL) 19 % (13-45); MONOCYTES % (MANUAL) 3 % (3-13); NUCLEATED RED BLOOD CELLS 2 /100 WBC (0); POLYCHROMASIA 2+; SEGMENTED NEUTROPHILS % (MAN) 78 % (42-78); TOTAL CELLS COUNTED 100
[2018-07-27 06:09] LABS: PLATELET COMMENT DECREASED
[2018-07-27] MEDS: NORMAL SALINE 1000 ML 1,000 ML IV PRN (07:00)
[2018-07-27] MEDS ORDERED: MIDAZOLAM 2 MG/2 ML INJ ONE (07:39)
[2018-07-27] MEDS: ALBUTEROL SULFATE 0.083% NEB 2.5 MG/3 ML AMPUL NEB SCH ×3 (08:04→21:05)
[2018-07-27] MEDS: HYDROMORPHONE HCL INJ/PF 2 MG/ML AMPULE IV PRN ×4 (08:19→22:51)
[2018-07-27] MEDS ORDERED: NORMAL SALINE 250 ML IV PRN (08:50)
--- NOTE | 2018-07-27 09:25 | RADIOLOGY REPORT (SQ) ---
EXAM DESCRIPTION: KUB/ABDOMEN (SINGLE VIEW) COMPLETED DATE/TIME: 07/27/2018 9:11 am REASON FOR STUDY: ileus COMPARISON: None. NUMBER OF VIEWS: One view. TECHNIQUE: Supine radiographic image of the abdomen acquired. LIMITATIONS: None. FINDINGS: BOWEL GAS PATTERN: Normal bowel gas pattern. No dilated loops. Colonic and rectal fecal b urden. CALCIFICATIONS: No suspicious calcifications. SOFT TISSUES: No gross mass or suggestion of organomegaly. HARDWARE: None in the abdomen. BONES: Diffuse extends multiple sclerotic lesions involve the visualized ribs, lower thoracic and myrtle mbar spine, pelvic and bilateral hip bones, suggesting metastatic disease. These findings are stable when compared to the CT examination dated 07/05/2018. Pathologic fractures lower left 7th and 8th ri bs. OTHER: Bilateral pleural effusions, larger on the left. Left base atelectasis/infiltrate. Prior ch olecystectomy. IMPRESSION: 1. NO RADIOGRAPHIC EVIDENCE FOR ACUTE ABDOMINAL DISEASE. Colonic and rectal fecal burde n. 2. Diffuse extensive osseous metastatic disease involving the visualized lower chest/thorax, and the osseous structures of the abdomen, pelvis and bilateral hips. TECHNICAL DOCUMENTATION: JOB ID: [id number] [employer]- All Rights Reserved Reading location - IP/workstation name: [email or web address]
[2018-07-27] MEDS: RALTEGRAVIR POTASSIUM 400 MG TABLET PO SCH ×2 (09:52→21:22)
[2018-07-27] MEDS: PREGABALIN 75 MG CAPSULE PO SCH ×4 (09:52→21:22)
[2018-07-27] MEDS: FAMOTIDINE INJ/PF 20 MG/2 ML SDV IV SCH ×2 (09:56→21:28)
[2018-07-27] MEDS: VANCOMYCIN HCL 1,000 MG in DEXTROSE 5%-WATER 250 ML IV SCH ×2 (09:56→18:08)
[2018-07-27] MEDS: MIDAZOLAM 2 MG/2 ML INJ IV PRN ×5 (09:58→22:55)
[2018-07-27] MEDS: LEVOFLOXACIN 500 MG/D5W RTU 500 MG/100 ML RTUPB IV SCH (17:08)
[2018-07-27] MEDS: EMTRICITABINE/TENOFOVIR 200-300 MG TABLET PO SCH (21:22)
[2018-07-27 22:30] LABS: HEMATOCRIT 19.1 % (36.0-47.0); MEAN CORPUSCULAR HEMOGLOBIN 33.6 pg (27.0-33.4); MEAN CORPUSCULAR HGB CONC 34.8 g/dL (32.0-36.0); MEAN CORPUSCULAR VOLUME 97 fl (80-97); RED BLOOD COUNT 1.98 10^6/uL (3.72-5.28); RED CELL DISTRIBUTION WIDTH 20.5 % (11.5-14.0)
[2018-07-27 22:38] LABS: HEMOGLOBIN 6.7 g/dL (12.0-15.5); PLATELET COUNT 25 10^3/uL (150-450)
--- NOTE | 2018-07-27 23:29 | PDOC PROGRESS REPORT ---
Subjective Progress Note for:: 07/27/18 Subjective:: Patient resting on BiPAP Reason For Visit: PNEUMONIA, HYPOXIC RESPIRATORY FAILURE Physical Exam Vital Signs: Temp Pulse Resp BP Pulse Ox 97.7 F 90 33 H 96/55 L 100 07/27/18 08:00 07/27/18 08:07 07/27/18 08:07 07/27/18 08:00 07/27/18 08:07 Intake & Output 07/26/18 07/27/18 07/28/18 06:59 06:59 06:59 Intake Total 644 972 Output Total 1800 225 Balance -1156 747 Weight 88.6 kg General appearance: PRESENT: mild distress - Still with agitation Neck exam: ABSENT: carotid bruit, JVD Respiratory exam: PRESENT: rhonchi - Bilateral, symmetrical. ABSENT: rales, wheezes Cardiovascular exam: PRESENT: RRR, +S1, +S2 GI/Abdominal exam: PRESENT: distended, hypoactive bowel sounds. ABSENT: tenderness Extremities exam: ABSENT: pedal edema Musculoskeletal exam: ABSENT: ambulatory Neurological exam: PRESENT: other - Currently medicated. Limited interaction. Psychiatric exam: PRESENT: flat affect Results Laboratory Results: 07/27/18 05:26 07/27/18 05:26 07/26/18 07/26/18 07/26/18 15:06 15:06 17:41 WBC 4.9 RBC 2.31 L Hgb 7.6 L Hct 22.3 L MCV 97 MCH 33.0 MCHC 34.2 RDW 20.5 H Plt Count 5 L* Seg Neutrophils % Not Reportable Lymphocytes % Not Reportable Monocytes % Not Reportable Eosinophils % Not Reportable Basophils % Not Reportable Absolute Neutrophils Not Reportable Absolute Lymphocytes Not Reportable Absolute Monocytes Not Reportable Absolute Eosinophils Not Reportable Absolute Basophils Not Reportable Carbonic Acid HCO3/H2CO3 Ratio ABG pH ABG pCO2 ABG pO2 ABG HCO3 ABG O2 Saturation ABG Base Excess VBG pH 7.31 VBG pCO2 70.5 H* VBG HCO3 34.6 H VBG Base Excess 5.8 FiO2 Sodium Potassium Chloride Carbon Dioxide Anion Gap BUN Creatinine Est GFR ( Amer) Est GFR (Non-Af Amer) Glucose Lactic Acid 0.5 L Calcium Total Bilirubin AST ALT Alkaline Phosphatase Total Protein Albumin Urine Color Urine Appearance Urine pH Ur Specific [place] Urine Protein Urine Glucose (UA) Urine Ketones Urine Blood Urine Nitrite Ur Leukocyte Esterase Urine WBC (Auto) Urine RBC (Auto) Blood Type Antibody Screen 07/26/18 07/26/18 07/26/18 17:41 19:50 23:09 WBC RBC Hgb Hct MCV MCH MCHC RDW Plt Count Seg Neutrophils % Lymphocytes % Monocytes % Eosinophils % Basophils % Absolute Neutrophils Absolute Lymphocytes Absolute Monocytes Absolute Eosinophils Absolute Basophils Carbonic Acid 1.44 H HCO3/H2CO3 Ratio 22:1 ABG pH 7.45 ABG pCO2 48.0 H ABG pO2 88.6 ABG HCO3 32.3 H ABG O2 Saturation 97.0 ABG Base Excess 7.5 VBG pH VBG pCO2 VBG HCO3 VBG Base Excess FiO2 40% Sodium 133.6 L Potassium 4.2 Chloride 96 L Carbon Dioxide 33 H Anion Gap 5 BUN 14 Creatinine 0.58 Est GFR ( Amer) > 60 Est GFR (Non-Af Amer) > 60 Glucose 93 Lactic Acid Calcium 7.6 L Total Bilirubin 1.2 AST 45 H ALT 25 Alkaline Phosphatase 317 H Total Protein 5.2 L Albumin 2.6 L Urine Color Urine Appearance Urine pH Ur Specific [place] Urine Protein Urine Glucose (UA) Urine Ketones Urine Blood Urine Nitrite Ur Leukocyte Esterase Urine WBC (Auto) Urine RBC (Auto) Blood Type O POSITIVE Antibody Screen NEGATIVE 07/26/18 07/27/18 07/27/18 23:27 05:25 05:26 WBC 6.4 RBC 2.15 L Hgb 7.1 L Hct 20.7 L MCV 96 MCH 33.0 MCHC 34.3 RDW 20.2 H Plt Count 12 L* Seg Neutrophils % Not Reportable Lymphocytes % Not Reportable Monocytes % Not Reportable Eosinophils % Not Reportable Basophils % Not Reportable Absolute Neutrophils Not Reportable Absolute Lymphocytes Not Reportable Absolute Monocytes Not Reportable Absolute Eosinophils Not Reportable Absolute Basophils Not Reportable Carbonic Acid 1.35 HCO3/H2CO3 Ratio 24:1 ABG pH 7.48 H ABG pCO2 44.9 ABG pO2 93.6 ABG HCO3 32.7 H ABG O2 Saturation 97.5 ABG Base Excess 8.4 VBG pH VBG pCO2 VBG HCO3 VBG Base Excess FiO2 40% Sodium Potassium Chloride Carbon Dioxide Anion Gap BUN Creatinine Est GFR ( Amer) Est GFR (Non-Af Amer) Glucose Lactic Acid Calcium Total Bilirubin AST ALT Alkaline Phosphatase Total Protein Albumin Urine Color YELLOW Urine Appearance CLEAR Urine pH 7.0 Ur Specific [place] 1.011 Urine Protein NEGATIVE Urine Glucose (UA) NEGATIVE Urine Ketones 20 H Urine Blood NEGATIVE Urine Nitrite NEGATIVE Ur Leukocyte Esterase NEGATIVE Urine WBC (Auto) 1 Urine RBC (Auto) 1 Blood Type Antibody Screen 07/27/18 05:26 WBC RBC Hgb Hct MCV MCH MCHC RDW Plt Count Seg Neutrophils % Lymphocytes % Monocytes % Eosinophils % Basophils % Absolute Neutrophils Absolute Lymphocytes Absolute Monocytes Absolute Eosinophils Absolute Basophils Carbonic Acid HCO3/H2CO3 Ratio ABG pH ABG pCO2 ABG pO2 ABG HCO3 ABG O2 Saturation ABG Base Excess VBG pH VBG pCO2 VBG HCO3 VBG Base Excess FiO2 Sodium 137.2 Potassium 3.6 Chloride 99 Carbon Dioxide 32 H Anion Gap 6 BUN 15 Creatinine 0.58 Est GFR ( Amer) > 60 Est GFR (Non-Af Amer) > 60 Glucose 120 H Lactic Acid Calcium 8.1 L Total Bilirubin AST ALT Alkaline Phosphatase Total Protein Albumin Urine Color Urine Appearance Urine pH Ur Specific [place] Urine Protein Urine Glucose (UA) Urine Ketones Urine Blood Urine Nitrite Ur Leukocyte Esterase Urine WBC (Auto) Urine RBC (Auto) Blood Type Antibody Screen 07/26/18 07/26/18 17:41 17:41 Creatine Kinase 26 L CK-MB (CK-2) 0.33 Troponin I 0.016 Impressions: Chest X-Ray 07/26/18 14:52 IMPRESSION: 1. Small bilateral pleural effusions with bibasilar airspace opacities, may represent atelectasis or pneumonia. 2. Mild cardiomegaly and mild vascular congestion. 3. Osseous metastases. Assessment & Plan - Diagnosis (1) Acute and chronic respiratory failure Qualifiers: Respiratory failure complication: hypoxia and hypercapnia Qualified Code(s): J96.21 - Acute and chronic respiratory failure with hypoxia; J96.22 - Acute and chronic respiratory failure with hypercapnia Is this a current diagnosis for this admission?: Yes Plan: Most likely an exacerbation of her chronic obstructive pulmonary disease and the pneumonia (bilateral infiltrates). Continue antibiotic therapy for pneumonia. Will use BiPAP for the acute respiratory failure and try to wean from BiPAP. (2) Metastatic breast cancer Is this a current diagnosis for this admission?: Yes Plan: The patient's oncologist is Dr. Narayanan. Consult has been placed. Defer management of metastatic disease to oncology. (3) COPD (chronic obstructive pulmonary disease) Qualifiers: COPD type: emphysema Is this a current diagnosis for this admission?: Yes Plan: Nebulizer treatments and oxygen supplementation by BiPAP. Consider broader spectrum antibiotics if no response to current treatment. (4) Constipation Qualifiers: Constipation type: unspecified constipation type Qualified Code(s): K59.00 - Constipation, unspecified Is this a current diagnosis for this admission?: Yes Plan: Decreased bowel sounds. KUB showed stool in the sigmoid colon and rectum. We will utilize fleets enema to start. Consider nasogastric tube if patient unable to swallow. Will administer MiraLAX or citrate of magnesia. 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 (6) HIV (human immunodeficiency virus infection) Qualifiers: HIV symptom status: asymptomatic Qualified Code(s): Z21 - Asymptomatic human immunodeficiency virus [HIV] infection status Is this a current diagnosis for this admission?: Yes Plan: Continue antiretroviral medications. - Time Time Spent with patient: 15-24 minutes Medications reviewed and adjusted accordingly: Yes - Plan Summary Plan Summary: If patient unable to swallow consider nasogastric tube for medication administ ration. Palliative care consult would be appropriate.
[2018-07-28] MEDS: MIDAZOLAM 2 MG/2 ML INJ IV PRN ×2 (01:14→09:38)
[2018-07-28] MEDS: VANCOMYCIN HCL 1,000 MG in DEXTROSE 5%-WATER 250 ML IV SCH ×3 (01:16→18:36)
[2018-07-28 05:32] LABS: ARTERIAL BLOOD BASE EXCESS 8.4 mmol/L; ARTERIAL BLOOD H2CO3 1.46 mmol/L (1.05-1.35); ARTERIAL BLOOD HCO3 33.2 mmol/L (20-24); ARTERIAL BLOOD O2 SATURATION 98.8 % (94-98); ARTERIAL BLOOD PCO2 48.5 mmHg (35-45); ARTERIAL BLOOD PH 7.45 (7.35-7.45); ARTERIAL BLOOD PO2 137.1 mmHg (80-100); ARTERIAL BLOOD TOTAL CO2 34.7 mmol/L (21-25)
[2018-07-28 05:38] LABS: ARTERIAL BLOOD FIO2 35%
[2018-07-28 05:44] LABS: ALANINE AMINOTRANSFERASE 27 U/L (9-52); ALBUMIN 2.7 g/dL (3.5-5.0); ALKALINE PHOSPHATASE 301 U/L (38-126); ANION GAP 5 (5-19); ASPARTATE AMINO TRANSFERASE 54 U/L (14-36); BILIRUBIN,DIRECT 0.5 mg/dL (0.0-0.4); BILIRUBIN,TOTAL 0.9 mg/dL (0.2-1.3); BLOOD UREA NITROGEN 17 mg/dL (7-20); CALCIUM 8.5 mg/dL (8.4-10.2); CARBON DIOXIDE 32 mmol/L (22-30); CHLORIDE 100 mmol/L (98-107); GLUCOSE 74 mg/dL (75-110); POTASSIUM 3.3 mmol/L (3.6-5.0); SODIUM 136.8 mmol/L (137-145); TOTAL PROTEIN 5.3 g/dL (6.3-8.2)
--- NOTE | 2018-07-28 08:29 | RADIOLOGY REPORT (SQ) ---
EXAM DESCRIPTION: CHEST SINGLE VIEW COMPLETED DATE/TIME: 07/28/2018 6:46 am REASON FOR STUDY: pneumonia COMPARISON: CT chest 05/23/2018 Chest films 07/17/2018, 07/26/2018 EXAM PARAMETERS: NUMBER OF VIEWS: One view. TECHNIQUE: Single frontal radiographic view of the chest acquired. RADIATION DOSE: NA LIMITATIONS: None. FINDINGS: LUNGS AND PLEURA: Bibasilar consolidation persists, left greater than right. Small bilate ral pleural effusions are present. Pulmonary vascular congestion is present. Mild bilateral perihil ar pulmonary edema. No pneumothorax. MEDIASTINUM AND HILAR STRUCTURES: No masses. Contour normal. HEART AND VASCULAR STRUCTURES: Heart normal in size. Normal vasculature. BONES: Diffuse bony sclerotic metastases from breast cancer HARDWARE: None in the chest. OTHER: No other significant finding. IMPRESSION: Pulmonary vascular prominence with mild perihilar edema. Stable small bilateral pleural effusions and bibasilar airspace disease. TECHNICAL DOCUMENTATION: JOB ID: [id number] [employer]- All Rights Reserved Reading location - IP/workstation name: [email or web address]
[2018-07-28] MEDS: ALBUTEROL SULFATE 0.083% NEB 2.5 MG/3 ML AMPUL NEB SCH ×3 (08:41→19:49)
--- NOTE | 2018-07-28 08:46 | CONSULTATION REPORT E ---
Consultation Report NAME: JEAN CARLOS FRIAS : 1965 AGE: 52Y DATE: 07/27/2018 612 A TO: HINA LAW M.D. FROM: ARTUR BONILLA MD Requesting Physician REASON FOR REFERRAL: Breast cancer. The patient is a 52-year-old with metastatic breast cancer. She has been on various chemotherapy agents over the years. Unfortunately, since 2017, she has been pancytopenic, most probably because of being heavily pretreated, complication of her chemotherapy, and also possibly the metastatic breast cancer. More recently, she was started on Faslodex and she has also received numerous platelet and packed RBC transfusions. She was admitted into the hospital with respiratory distress on 07/26/2018. She is presently in the ICU on BiPAP machine. PAST MEDICAL HISTORY: As stated above. Includes history of metastatic breast cancer, HIV/AIDS, status post cholecystectomy. She has had orthopedic surgery to her left patella. PHYSICAL EXAMINATION: GENERAL: She is a middle-aged woman, heavily sedated. Not answering any questions. LABORATORY: From 07/26/2018: Platelets were 5, hemoglobin 7.6, white count 4.6. Sodium 133, potassium 4.2, BUN 14, creatinine 0.5. Chest x-ray 07/26/2018: Small bilateral pleural effusion with bibasilar airspace opacities. Mild cardiomegaly. Bone metastases. IMPRESSION AND PLAN: The patient is a 52-year-old woman who unfortunately has stage IV metastatic breast cancer. She has been pretreated in the past. Last chemotherapy was in 2017. Chemotherapy held because of pancytopenia. She recently was started on Faslodex, which is antiestrogen endocrine therapy. Now will try to avoid respiratory failure. She has metastatic breast cancer which is not curable. She also has been heavily pretreated. Her options with regards to chemotherapy are very limited because of her low blood count. I agree with referral to Palliative Care/Hospice. If she does improve after discharge from the ICU, will be glad to continue to follow her as an outpatient. I will recommend giving her platelets , possibly with bleeding. Hemoglobin greater than 8. Thank you for this consultation and allowing me to be part of her care. DICTATING PHYSICIAN: HINA LAW M.D. [id number] PHY#: [id number] ID: [id number] JOB#: [id number] ACCT: [id number] cc:HINA LAW M.D. >
[2018-07-28] MEDS: PREGABALIN 75 MG CAPSULE PO SCH ×4 (09:33→21:08)
[2018-07-28] MEDS: RALTEGRAVIR POTASSIUM 400 MG TABLET PO SCH ×2 (09:33→21:08)
[2018-07-28] MEDS: ENOXAPARIN SODIUM INJ 40 MG/0.4 ML DISP.SYRIN SUBCUT SCH (09:38)
[2018-07-28] MEDS: FAMOTIDINE INJ/PF 20 MG/2 ML SDV IV SCH ×2 (09:38→21:09)
[2018-07-28] MEDS ORDERED: NA PHOS,M-B/NA PHOS,DI-BA (ADULT) 133 ML ENEMA PR SCH (10:00)
--- NOTE | 2018-07-28 10:24 | PDOC PROGRESS REPORT ---
Subjective Progress Note for:: 07/28/18 Subjective:: 06/30/2018 no acute events in the last 24 hours. Patient is on BiPAP. Not in distress. Patient is afebrile. Temperature is 97.3. Reason For Visit: PNEUMONIA, HYPOXIC RESPIRATORY FAILURE Physical Exam Vital Signs: Temp Pulse Resp BP Pulse Ox 97.3 F 89 38 H 135/92 H 92 07/28/18 05:52 07/28/18 08:41 07/28/18 10:00 07/28/18 09:28 07/28/18 10:00 Intake & Output 07/27/18 07/28/18 07/29/18 06:59 06:59 06:59 Intake Total 644 2872 250 Output Total 1800 1135 Balance -1156 1737 250 Weight 88.6 kg 89.6 kg General appearance: PRESENT: no acute distress Head exam: PRESENT: atraumatic Ear exam: PRESENT: normal external ear exam Neck exam: ABSENT: carotid bruit, JVD, lymphadenopathy, thyromegaly Respiratory exam: PRESENT: decreased breath sounds Cardiovascular exam: PRESENT: tachycardia GI/Abdominal exam: PRESENT: normal bowel sounds, soft. ABSENT: distended, guarding, mass, organolmegaly, rebound, tenderness Extremities exam: PRESENT: full ROM. ABSENT: calf tenderness, clubbing, pedal edema Neurological exam: PRESENT: alert, awake, oriented to person, oriented to place, oriented to time, oriented to situation, CN II-XII grossly intact. ABSENT: motor sensory deficit Psychiatric exam: PRESENT: appropriate affect, normal mood. ABSENT: homicidal ideation, suicidal ideation Results Laboratory Results: 07/27/18 22:00 07/28/18 04:55 07/26/18 07/27/18 07/28/18 19:50 22:00 04:55 WBC 4.0 RBC 1.98 L Hgb 6.7 L Hct 19.1 L MCV 97 MCH 33.6 H MCHC 34.8 RDW 20.5 H Plt Count 25 L* D Carbonic Acid HCO3/H2CO3 Ratio ABG pH ABG pCO2 ABG pO2 ABG HCO3 ABG O2 Saturation ABG Base Excess FiO2 Sodium 136.8 L Potassium 3.3 L Chloride 100 Carbon Dioxide 32 H Anion Gap 5 BUN 17 Creatinine 0.59 Est GFR ( Amer) > 60 Est GFR (Non-Af Amer) > 60 Glucose 74 L Calcium 8.5 Magnesium 2.2 Total Bilirubin 0.9 AST 54 H ALT 27 Alkaline Phosphatase 301 H Total Protein 5.3 L Albumin 2.7 L Blood Type O POSITIVE Antibody Screen NEGATIVE 07/28/18 05:21 WBC RBC Hgb Hct MCV MCH MCHC RDW Plt Count Carbonic Acid 1.46 H HCO3/H2CO3 Ratio 22:1 ABG pH 7.45 ABG pCO2 48.5 H ABG pO2 137.1 H ABG HCO3 33.2 H ABG O2 Saturation 98.8 H ABG Base Excess 8.4 FiO2 35% Sodium Potassium Chloride Carbon Dioxide Anion Gap BUN Creatinine Est GFR ( Amer) Est GFR (Non-Af Amer) Glucose Calcium Magnesium Total Bilirubin AST ALT Alkaline Phosphatase Total Protein Albumin Blood Type Antibody Screen 07/26/18 07/26/18 17:41 17:41 Creatine Kinase 26 L CK-MB (CK-2) 0.33 Troponin I 0.016 Impressions: KUB X-Ray 07/27/18 00:00 IMPRESSION: 1. NO RADIOGRAPHIC EVIDENCE FOR ACUTE ABDOMINAL DISEASE. Colonic and rectal fecal burden. 2. Diffuse extensive osseous metastatic disease involving the visualized lower chest/thorax, and the osseous structures of the abdomen, pelvis and bilateral hips. Chest X-Ray 07/28/18 06:00 IMPRESSION: Pulmonary vascular prominence with mild perihilar edema. Stable small bilateral pleural effusions and bibasilar airspace disease. Assessment & Plan - Diagnosis (1) Acute and chronic respiratory failure Qualifiers: Respiratory failure complication: hypoxia and hypercapnia Qualified Code(s): J96.21 - Acute and chronic respiratory failure with hypoxia; J96.22 - Acute and chronic respiratory failure with hypercapnia Is this a current diagnosis for this admission?: Yes Plan: Most likely an exacerbation of her chronic obstructive pulmonary disease and the pneumonia (bilateral infiltrates). Continue antibiotic therapy for pneumonia. Will use BiPAP for the acute respiratory failure and try to wean from BiPAP. 07/28/2018-ABG done today and 35% oxygen pH is 7.45/PCO2 48.5 p.o. T is 137 pulse ox is 98.8%. Patient is presently on albuterol nebulizations, vancomycin, levofloxacin. Plan is to continue the present management. So far blood cultures and urine cultures are negative. (2) Metastatic breast cancer Is this a current diagnosis for this admission?: Yes Plan: The patient's oncologist is Dr. Narayanan. Consult has been placed. Defer management of metastatic disease to oncology. 07/28/2018-patient has history of metastatic breast cancer she has a platelet c ount of 25,000 patient's oncologist is Dr. Narayanan consult was placed for her. (3) COPD (chronic obstructive pulmonary disease) Qualifiers: COPD type: emphysema Is this a current diagnosis for this admission?: Yes Plan: Nebulizer treatments and oxygen supplementation by BiPAP. Consider broader spectrum antibiotics if no response to current treatment. 07/28/2018-patient is presently on IV antibiotic therapy, supplemental oxygen, as needed BiPAP plan is to continue the present management. 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 (5) HIV (human immunodeficiency virus infection) Qualifiers: HIV symptom status: asymptomatic Qualified Code(s): Z21 - Asymptomatic human immunodeficiency virus [HIV] infection status Is this a current diagnosis for this admission?: Yes Plan: Evidently patient completed antibiotic therapy prior to this hospitalization. - Time Time Spent with patient: 15-24 minutes Medications reviewed and adjusted accordingly: Yes Anticipated discharge: Home
[2018-07-28] MEDS ORDERED: NORMAL SALINE 250 ML IV PRN ×2 (10:28)
[2018-07-28] MEDS ORDERED: ALBUTEROL SULFATE HFA (90 MCG/PUFF) 8 GM MDI (1 MDI/ER DISP) IH PRN (10:30)
[2018-07-28] MEDS ORDERED: ALBUTEROL SULFATE 0.083% NEB 2.5 MG/3 ML AMPUL NEB PRN (10:30)
[2018-07-28 10:49] LABS: HEMATOCRIT 20.3 % (36.0-47.0); MEAN CORPUSCULAR HEMOGLOBIN 32.8 pg (27.0-33.4); MEAN CORPUSCULAR HGB CONC 34.1 g/dL (32.0-36.0); MEAN CORPUSCULAR VOLUME 96 fl (80-97); RED BLOOD COUNT 2.11 10^6/uL (3.72-5.28); RED CELL DISTRIBUTION WIDTH 20.7 % (11.5-14.0)
[2018-07-28 11:07] LABS: HEMOGLOBIN 6.9 g/dL (12.0-15.5)
[2018-07-28 11:08] LABS: PLATELET COUNT 21 10^3/uL (150-450)
[2018-07-28 11:12] LABS: VANCOMYCIN,TROUGH 36.3 ug/mL (5.0-20.0)
[2018-07-28 11:37] LABS: ABSOLUTE LYMPHOCYTES# (MANUAL) 0.5 10^3/uL (0.5-4.7); ABSOLUTE MONOCYTES # (MANUAL) 0.3 10^3/uL (0.1-1.4); ABSOLUTE NEUTROPHILS# (MANUAL) 4.1 10^3/uL (1.7-8.2); BAND NEUTROPHILS % (MANUAL) 7 % (3-5); BASOPHILS % (MANUAL) 0 % (0-2); EOSINOPHILS % (MANUAL) 0 % (0-6); LYMPHOCYTES % (MANUAL) 10 % (13-45); METAMYELOCYTES % (MANUAL) 2 % (0); MONOCYTES % (MANUAL) 7 % (3-13); NUCLEATED RED BLOOD CELLS 22 /100 WBC (0); SEGMENTED NEUTROPHILS % (MAN) 70 % (42-78); TOTAL CELLS COUNTED 100
[2018-07-28 11:40] LABS: PLATELET COMMENT DECREASED
[2018-07-28 11:43] LABS: ANISOCYTOSIS 2+; POLYCHROMASIA 1+
[2018-07-28 11:44] LABS: WHITE BLOOD COUNT 4.9 10^3/uL (4.0-10.5)
[2018-07-28 11:59] LABS: ALANINE AMINOTRANSFERASE 31 U/L (9-52); ALBUMIN 2.8 g/dL (3.5-5.0); ALKALINE PHOSPHATASE 309 U/L (38-126); ASPARTATE AMINO TRANSFERASE 64 U/L (14-36); BILIRUBIN,DIRECT 0.5 mg/dL (0.0-0.4); BLOOD UREA NITROGEN 17 mg/dL (7-20); CALCIUM 8.6 mg/dL (8.4-10.2); CARBON DIOXIDE 32 mmol/L (22-30); CHLORIDE 102 mmol/L (98-107); GLUCOSE 73 mg/dL (75-110); POTASSIUM 3.2 mmol/L (3.6-5.0); TOTAL PROTEIN 5.3 g/dL (6.3-8.2)
[2018-07-28 12:02] LABS: MYELOCYTES % (MANUAL) 2 % (0); PROMYELOCYTES % (MANUAL) 2 % (0)
[2018-07-28 12:05] LABS: SODIUM 137.1 mmol/L (137-145)
[2018-07-28 12:11] LABS: ANION GAP 3 (5-19)
[2018-07-28] MEDS: LORATADINE 10 MG TABLET PO SCH (12:27)
[2018-07-28] MEDS: HYDROMORPHONE HCL INJ/PF 2 MG/ML AMPULE IV PRN ×3 (12:27→21:20)
[2018-07-28] MEDS: TAMOXIFEN CITRATE 10 MG TABLET PO SCH ×2 (12:27→21:09)
[2018-07-28] MEDS: ONDANSETRON HCL 8 MG TABLET PO PRN (12:27)
[2018-07-28] MEDS: METOCLOPRAMIDE HCL 10 MG TABLET PO SCH ×3 (13:21→21:09)
[2018-07-28] MEDS: HALOPERIDOL LACTATE INJ 5 MG/1 ML VIAL IV PRN (14:02)
[2018-07-28] MEDS: LEVOFLOXACIN 500 MG/D5W RTU 500 MG/100 ML RTUPB IV SCH (16:34)
[2018-07-28 18:23] LABS: VANCOMYCIN,TROUGH 21.6 ug/mL (5.0-20.0)
[2018-07-28] MEDS: EMTRICITABINE/TENOFOVIR 200-300 MG TABLET PO SCH (21:08)
[2018-07-28 22:24] LABS: HEMATOCRIT 23.9 % (36.0-47.0); HEMOGLOBIN 8.3 g/dL (12.0-15.5); MEAN CORPUSCULAR HEMOGLOBIN 31.9 pg (27.0-33.4); MEAN CORPUSCULAR HGB CONC 34.6 g/dL (32.0-36.0); RED BLOOD COUNT 2.59 10^6/uL (3.72-5.28); RED CELL DISTRIBUTION WIDTH 20.8 % (11.5-14.0)
[2018-07-28 22:26] LABS: MEAN CORPUSCULAR VOLUME 92 fl (80-97)
[2018-07-28 22:40] LABS: PLATELET COUNT 15 10^3/uL (150-450)
[2018-07-29] MEDS: HYDROMORPHONE HCL INJ/PF 2 MG/ML AMPULE IV PRN ×5 (01:40→20:31)
[2018-07-29] MEDS: ALBUTEROL SULFATE 0.083% NEB 2.5 MG/3 ML AMPUL NEB SCH ×3 (07:35→19:19)
[2018-07-29] MEDS: ENOXAPARIN SODIUM INJ 40 MG/0.4 ML DISP.SYRIN SUBCUT SCH (09:32)
[2018-07-29] MEDS: PREGABALIN 75 MG CAPSULE PO SCH ×4 (09:45→22:26)
[2018-07-29] MEDS: METOCLOPRAMIDE HCL 10 MG TABLET PO SCH ×4 (09:45→22:25)
[2018-07-29] MEDS: LORATADINE 10 MG TABLET PO SCH (09:45)
[2018-07-29] MEDS: VANCOMYCIN HCL 1,250 MG in DEXTROSE 5%-WATER 250 ML IV SCH ×2 (09:46→22:25)
[2018-07-29] MEDS: RALTEGRAVIR POTASSIUM 400 MG TABLET PO SCH ×2 (09:46→22:27)
[2018-07-29] MEDS: TAMOXIFEN CITRATE 10 MG TABLET PO SCH ×2 (09:46→22:27)
[2018-07-29] MEDS: FAMOTIDINE INJ/PF 20 MG/2 ML SDV IV SCH ×2 (09:47→22:29)
[2018-07-29] MEDS ORDERED: POTASSIUM CHLORIDE 10 MEQ CAPSULE.ER PO ONE (10:00)
[2018-07-29] MEDS: GUAIFENESIN 600 MG TABLET.SA PO SCH ×2 (10:30→22:25)
[2018-07-29] MEDS: PREDNISONE 20 MG TABLET PO SCH (10:31)
[2018-07-29 11:01] LABS: PATH REVIEW PATHOLOGIST REVIEWED
[2018-07-29 11:34] LABS: HEMOGLOBIN 8.7 g/dL (12.0-15.5); RED BLOOD COUNT 2.74 10^6/uL (3.72-5.28)
[2018-07-29 11:35] LABS: HEMATOCRIT 25.3 % (36.0-47.0); MEAN CORPUSCULAR HGB CONC 34.5 g/dL (32.0-36.0); MEAN CORPUSCULAR VOLUME 93 fl (80-97); RED CELL DISTRIBUTION WIDTH 21.5 % (11.5-14.0)
[2018-07-29 11:37] LABS: PLATELET COUNT 12 10^3/uL (150-450)
[2018-07-29 11:38] LABS: WHITE BLOOD COUNT 3.5 10^3/uL (4.0-10.5)
--- NOTE | 2018-07-29 15:09 | PDOC PROGRESS REPORT ---
Subjective Progress Note for:: 07/29/18 Subjective:: JEAN CARLOS FRIAS is a 52 year old female with a history of metastatic breast cancer, HIV/AIDS, COPD on 5L O2 who Was admitted 07/26/2018 for acute respiratory distress with hypoxia secondary to COPD exacerbation. Patient was seen on morning rounds. She was found sitting up in bed comfortably on supplemental oxygen by nasal (utilizes 3-4 lpm at baseline). The patient re ports a slightly productive cough, although notes that this is improved. Overall she feels that her breathing is approaching her baseline function. She is not yet been ambulatory and is looking forward to working with physical therapy today. She does express desire to be discharged home where she has home health nursing and aide services; does recognize that she may need to consider long-term care in the future as her health continues to decline. Otherwise she has no questions or concerns today. She denies fever, chills, chest pain, palpitations, orthopnea, abdominal pain, nausea vomiting and diarrhea. No concerns per nursing. Reason For Visit: PNEUMONIA, HYPOXIC RESPIRATORY FAILURE Physical Exam Vital Signs: Temp Pulse Resp BP Pulse Ox 98.0 F 95 21 H 120/67 94 07/29/18 08:00 07/29/18 08:00 07/29/18 08:00 07/29/18 08:00 07/29/18 08:00 Intake & Output 07/28/18 07/29/18 07/30/18 06:59 06:59 06:59 Intake Total 2872 1200 Output Total 1135 1735 Balance 1737 -535 Weight 89.6 kg 90.9 kg General appearance: PRESENT: no acute distress, obese, well-developed, well- nourished Head exam: PRESENT: atraumatic, normocephalic Eye exam: PRESENT: conjunctiva pink, EOMI, PERRLA. ABSENT: scleral icterus Mouth exam: PRESENT: moist, tongue midline Teeth exam: PRESENT: poor dentation Neck exam: ABSENT: carotid bruit, JVD, lymphadenopathy, thyromegaly Respiratory exam: PRESENT: clear to auscultation kadeem, decreased breath sounds - Bibasilar, prolonged expiratory phas, rhonchi, symmetrical, unlabored, other - Supplemental oxygen by nasal cannula. ABSENT: rales, wheezes Cardiovascular exam: PRESENT: RRR. ABSENT: diastolic murmur, rubs, systolic murmur Pulses: PRESENT: +1 pedal pulses bilateral Vascular exam: PRESENT: normal capillary refill GI/Abdominal exam: PRESENT: normal bowel sounds, soft. ABSENT: distended, guarding, mass, organolmegaly, rebound, tenderness Rectal exam: PRESENT: deferred Extremities exam: PRESENT: full ROM. ABSENT: calf tenderness, clubbing, pedal edema Neurological exam: PRESENT: alert, awake, oriented to person, oriented to place, oriented to time, oriented to situation, CN II-XII grossly intact. ABSENT: motor sensory deficit Psychiatric exam: PRESENT: anxious, appropriate affect, normal mood. ABSENT: homicidal ideation, suicidal ideation Skin exam: PRESENT: dry, intact, warm. ABSENT: cyanosis, rash Results Laboratory Results: 07/28/18 22:15 07/28/18 10:23 07/26/18 07/28/18 07/28/18 19:50 10:23 10:23 WBC 4.9 RBC 2.11 L Hgb 6.9 L Hct 20.3 L MCV 96 MCH 32.8 MCHC 34.1 RDW 20.7 H Plt Count 21 L* Seg Neutrophils % Not Reportable Lymphocytes % Not Reportable Monocytes % Not Reportable Eosinophils % Not Reportable Basophils % Not Reportable Absolute Neutrophils Not Reportable Absolute Lymphocytes Not Reportable Absolute Monocytes Not Reportable Absolute Eosinophils Not Reportable Absolute Basophils Not Reportable Sodium Potassium Chloride Carbon Dioxide Anion Gap BUN Creatinine Cancelled Est GFR ( Amer) Cancelled Est GFR (Non-Af Amer) Cancelled Glucose Calcium Magnesium Total Bilirubin AST ALT Alkaline Phosphatase Total Protein Albumin Blood Type O POSITIVE Antibody Screen NEGATIVE 07/28/18 07/28/18 10:23 22:15 WBC 5.0 RBC 2.59 L Hgb 8.3 L Hct 23.9 L MCV 92 D MCH 31.9 MCHC 34.6 RDW 20.8 H Plt Count 15 L* Seg Neutrophils % Lymphocytes % Monocytes % Eosinophils % Basophils % Absolute Neutrophils Absolute Lymphocytes Absolute Monocytes Absolute Eosinophils Absolute Basophils Sodium 137.1 Potassium 3.2 L Chloride 102 Carbon Dioxide 32 H Anion Gap 3 L BUN 17 Creatinine 0.57 Est GFR ( Amer) > 60 Est GFR (Non-Af Amer) > 60 Glucose 73 L Calcium 8.6 Magnesium 2.1 Total Bilirubin 1.0 AST 64 H ALT 31 Alkaline Phosphatase 309 H Total Protein 5.3 L Albumin 2.8 L Blood Type Antibody Screen 07/26/18 07/26/18 17:41 17:41 Creatine Kinase 26 L CK-MB (CK-2) 0.33 Troponin I 0.016 Impressions: KUB X-Ray 07/27/18 00:00 IMPRESSION: 1. NO RADIOGRAPHIC EVIDENCE FOR ACUTE ABDOMINAL DISEASE. Colonic and rectal fecal burden. 2. Diffuse extensive osseous metastatic disease involving the visualized lower chest/thorax, and the osseous structures of the abdomen, pelvis and bilateral hips. Chest X-Ray 07/28/18 06:00 IMPRESSION: Pulmonary vascular prominence with mild perihilar edema. Stable small bilateral pleural effusions and bibasilar airspace disease. Assessment & Plan - Diagnosis (1) Acute and chronic respiratory failure Qualifiers: Respiratory failure complication: hypoxia and hypercapnia Qualified Code(s): J96.21 - Acute and chronic respiratory failure with hypoxia; J96.22 - Acute and chronic respiratory failure with hypercapnia Is this a current diagnosis for this admission?: Yes Plan: Secondary to an exacerbation of her chronic obstructive pulmonary disease and the CAP (bilateral infiltrates). Now maintaining oxygen saturations on supplemental oxygen by nasal cannula (utilizes 3 L/min at baseline), afebrile >48 hours, WBCs normal. Clinically improved. The patient was initially admitted to the ICU; today she is downgraded to telemetry status. Continue supplemental oxygen and BiPAP as needed to maintain oxygen saturations >89 percent. Continue scheduled and as needed nebulizer treatments. Prednisone 60 mg daily. Mucinex twice daily. She is empirically treated with IV vancomycin and Levaquin for CAP. Incentive spirometer and flutter valve to bedside. (2) COPD (chronic obstructive pulmonary disease) Qualifiers: COPD type: emphysema Is this a current diagnosis for this admission?: Yes Plan: Improved; regiment as above. (3) Pneumonia Qualifiers: Laterality: bilateral Lung location: lower lobe of lung Is this a current diagnosis for this admission?: Yes Plan: Improved. Patient presented with a purulent cough with acute respiratory failure and hy poxia. CXR revealed small bibasilar consolidation and effusions; atelectasis versus pneumonia. Blood cultures are negative at 48 hours. Sputum cultures have not been obtained. She was empirically placed on IV vancomycin and Levaquin; will discontinue vancomycin and transition to p.o. Levaquin once blood cultures are negative at 72 hours. Remaining management as above. (4) HIV (human immunodeficiency virus infection) Qualifiers: HIV symptom status: asymptomatic Qualified Code(s): Z21 - Asymptomatic human immunodeficiency virus [HIV] infection status Is this a current diagnosis for this admission?: Yes Plan: Continue home antiviral therapy regiment. (5) Metastatic breast cancer Is this a current diagnosis for this admission?: Yes Plan: The patient's oncologist, Dr. Narayanan, has been consulted; appreciate her evaluation recommendations. Defer management of metastatic disease to oncology. Discussed with Dr. Narayanan today. Recommend transfusing for hemoglobin less than 8, platelets less than 10 if not bleeding otherwise maintain greater than 20. 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 (7) Hypokalemia Is this a current diagnosis for this admission?: Yes Plan: Replace with oral potassium today. We will continue to monitor daily chemistries and address as indicated. (8) Anemia, chronic disease Is this a current diagnosis for this admission?: Yes Plan: Anemia of chronic disease in patient with metastatic breast cancer. Discussed with Dr. Narayanan. Hemoglobin currently 8.3 s/p 2 units PRBC. No evidence of active bleeding at this time. Recommend transfusing for hemoglobin less than 8. - Time Time Spent with patient: 35 or more minutes Medications reviewed and adjusted accordingly: Yes Anticipated discharge: Home with Homehealth Within: within 72 hours - Inpatient Certification Based on my medical assessment, after consideration of the patient's comorbidities, presenting symptoms, or acuity I expect that the services needed warrant INPATIENT care.: Yes I certify that my determination is in accordance with my understanding of Medicare's requirements for reasonable and necessary INPATIENT services [42 CFR 412.3e].: Yes Medical Necessity: Significant Comorbidiites Make Outpatient Treatment Too Risky, Need Close Monitoring Due to Risk of Patient Decompensation, Need for Nebulizer Therapy and Monitoring of Response, Need for IV Antibiotics
[2018-07-29] MEDS: LEVOFLOXACIN 500 MG/D5W RTU 500 MG/100 ML RTUPB IV SCH (16:00)
[2018-07-29] MEDS: EMTRICITABINE/TENOFOVIR 200-300 MG TABLET PO SCH (22:27)
[2018-07-30] MEDS: HYDROMORPHONE HCL INJ/PF 2 MG/ML AMPULE IV PRN ×2 (00:38→05:00)
[2018-07-30 06:00] LABS: BLOOD UREA NITROGEN 14 mg/dL (7-20); CALCIUM 8.5 mg/dL (8.4-10.2); CARBON DIOXIDE 32 mmol/L (22-30); CHLORIDE 104 mmol/L (98-107); GLUCOSE 82 mg/dL (75-110); POTASSIUM 3.9 mmol/L (3.6-5.0); SODIUM 138.1 mmol/L (137-145)
[2018-07-30 06:11] LABS: ANION GAP 3 (5-19)
[2018-07-30] MEDS: ALBUTEROL SULFATE 0.083% NEB 2.5 MG/3 ML AMPUL NEB SCH ×2 (07:50→13:09)
[2018-07-30 08:46] LABS: HEMATOCRIT 23.2 % (36.0-47.0); MEAN CORPUSCULAR HEMOGLOBIN 32.3 pg (27.0-33.4); MEAN CORPUSCULAR HGB CONC 34.6 g/dL (32.0-36.0); MEAN CORPUSCULAR VOLUME 93 fl (80-97); RED BLOOD COUNT 2.48 10^6/uL (3.72-5.28); RED CELL DISTRIBUTION WIDTH 22.5 % (11.5-14.0); WHITE BLOOD COUNT 5.7 10^3/uL (4.0-10.5)
[2018-07-30] MEDS: ENOXAPARIN SODIUM INJ 40 MG/0.4 ML DISP.SYRIN SUBCUT SCH (09:24)
[2018-07-30 09:25] LABS: ABSOLUTE LYMPHOCYTES# (MANUAL) 0.7 10^3/uL (0.5-4.7); ABSOLUTE MONOCYTES # (MANUAL) 0.3 10^3/uL (0.1-1.4); ABSOLUTE NEUTROPHILS# (MANUAL) 4.7 10^3/uL (1.7-8.2); BAND NEUTROPHILS % (MANUAL) 4 % (3-5); BASOPHILS % (MANUAL) 0 % (0-2); EOSINOPHILS % (MANUAL) 0 % (0-6); LYMPHOCYTES % (MANUAL) 12 % (13-45); METAMYELOCYTES % (MANUAL) 3 % (0); MONOCYTES % (MANUAL) 6 % (3-13); NUCLEATED RED BLOOD CELLS 29 /100 WBC (0); SEGMENTED NEUTROPHILS % (MAN) 75 % (42-78); TOTAL CELLS COUNTED 100
[2018-07-30] MEDS: GUAIFENESIN 600 MG TABLET.SA PO SCH ×2 (09:27→22:52)
[2018-07-30] MEDS: METOCLOPRAMIDE HCL 10 MG TABLET PO SCH ×4 (09:27→22:54)
[2018-07-30] MEDS: PREDNISONE 20 MG TABLET PO SCH (09:27)
[2018-07-30] MEDS: PREGABALIN 75 MG CAPSULE PO SCH ×4 (09:27→22:51)
[2018-07-30 09:28] LABS: ANISOCYTOSIS 3+; OVALOCYTES SLIGHT; PLATELET COMMENT DECREASED; POIKILOCYTOSIS SLIGHT; POLYCHROMASIA SLIGHT
[2018-07-30] MEDS: LORATADINE 10 MG TABLET PO SCH (09:28)
[2018-07-30 09:29] LABS: PLATELET COUNT 15 10^3/uL (150-450)
[2018-07-30] MEDS: RALTEGRAVIR POTASSIUM 400 MG TABLET PO SCH ×2 (09:30→22:51)
[2018-07-30] MEDS: ONDANSETRON HCL 8 MG TABLET PO PRN (09:31)
[2018-07-30] MEDS: TAMOXIFEN CITRATE 10 MG TABLET PO SCH ×2 (09:32→22:53)
[2018-07-30] MEDS: FAMOTIDINE 20 MG TABLET PO SCH ×2 (10:30→22:54)
[2018-07-30] MEDS: OXYCODONE HCL SR 40 MG TABLET PO SCH ×2 (10:34→22:53)
--- NOTE | 2018-07-30 14:20 | PDOC PROGRESS REPORT ---
Subjective Progress Note for:: 07/30/18 Subjective:: JEAN CARLOS FRIAS is a 52 year old female with a history of metastatic breast cancer, HIV/AIDS, COPD on 5L O2 who Was admitted 07/26/2018 for acute respiratory distress with hypoxia secondary to COPD exacerbation. Patient was seen on morning rounds. She was found sitting up in bed comfortably on supplemental oxygen by nasal (utilizes 3-4 lpm at baseline). The patient re ports she feels better today; only complaint is her chronic pain. She requests to resume her home medication regiment. She reports continued slightly productive cough. She is asking to remover her bragg and to begin ambulating. She denies fever, chills, chest pain, palpitations, orthopnea, abdominal pain, nausea vomiting and diarrhea. She has no other questions or concerns today. No concerns per nursing. Reason For Visit: PNEUMONIA, HYPOXIC RESPIRATORY FAILURE Physical Exam Vital Signs: Temp Pulse Resp BP Pulse Ox 98.0 F 94 16 103/57 L 91 L 07/30/18 11:04 07/30/18 13:09 07/30/18 13:09 07/30/18 11:04 07/30/18 13:09 Intake & Output 07/29/18 07/30/18 07/31/18 06:59 06:59 06:59 Intake Total 1200 1100 Output Total 1735 3100 Balance -535 -2000 Weight 90.9 kg 90.3 kg General appearance: PRESENT: no acute distress, obese, well-developed, well- nourished Head exam: PRESENT: atraumatic, normocephalic Eye exam: PRESENT: conjunctiva pink, EOMI, PERRLA. ABSENT: scleral icterus Mouth exam: PRESENT: moist, tongue midline Respiratory exam: PRESENT: decreased breath sounds - bibasilar, prolonged expiratory phas, rhonchi, symmetrical, unlabored, other - Supplemental oxygen via nasal cannula. ABSENT: rales, wheezes Cardiovascular exam: PRESENT: RRR. ABSENT: diastolic murmur, rubs, systolic murmur Pulses: PRESENT: +1 pedal pulses bilateral Vascular exam: PRESENT: normal capillary refill GI/Abdominal exam: PRESENT: normal bowel sounds, soft. ABSENT: distended, guarding, mass, organolmegaly, rebound, tenderness Rectal exam: PRESENT: deferred Extremities exam: PRESENT: full ROM. ABSENT: calf tenderness, clubbing, pedal edema Neurological exam: PRESENT: alert, awake, oriented to person, oriented to place, oriented to time, oriented to situation, CN II-XII grossly intact. ABSENT: motor sensory deficit Psychiatric exam: PRESENT: appropriate affect, normal mood. ABSENT: homicidal ideation, suicidal ideation Skin exam: PRESENT: dry, intact, warm. ABSENT: cyanosis, rash Results Laboratory Results: 07/30/18 04:46 07/30/18 04:46 07/30/18 07/30/18 04:46 04:46 WBC 5.7 RBC 2.48 L Hgb 8.0 L Hct 23.2 L MCV 93 MCH 32.3 MCHC 34.6 RDW 22.5 H Plt Count 15 L* Seg Neutrophils % Not Reportable Lymphocytes % Not Reportable Monocytes % Not Reportable Eosinophils % Not Reportable Basophils % Not Reportable Absolute Neutrophils Not Reportable Absolute Lymphocytes Not Reportable Absolute Monocytes Not Reportable Absolute Eosinophils Not Reportable Absolute Basophils Not Reportable Sodium 138.1 Potassium 3.9 Chloride 104 Carbon Dioxide 32 H Anion Gap 3 L BUN 14 Creatinine 0.66 Est GFR ( Amer) > 60 Est GFR (Non-Af Amer) > 60 Glucose 82 Calcium 8.5 07/26/18 23:27 Catheterized Urine Urine Culture - Final NO GROWTH 2 DAYS 07/26/18 07/26/18 17:41 17:41 Creatine Kinase 26 L CK-MB (CK-2) 0.33 Troponin I 0.016 Impressions: KUB X-Ray 07/27/18 00:00 IMPRESSION: 1. NO RADIOGRAPHIC EVIDENCE FOR ACUTE ABDOMINAL DISEASE. Colonic and rectal fecal burden. 2. Diffuse extensive osseous metastatic disease involving the visualized lower chest/thorax, and the osseous structures of the abdomen, pelvis and bilateral hips. Chest X-Ray 07/28/18 06:00 IMPRESSION: Pulmonary vascular prominence with mild perihilar edema. Stable small bilateral pleural effusions and bibasilar airspace disease. Assessment & Plan - Diagnosis (1) Acute and chronic respiratory failure Qualifiers: Respiratory failure complication: hypoxia and hypercapnia Qualified Code(s): J96.21 - Acute and chronic respiratory failure with hypoxia; J96.22 - Acute and chronic respiratory failure with hypercapnia Is this a current diagnosis for this admission?: Yes Plan: Secondary to an exacerbation of her chronic obstructive pulmonary disease and the CAP (bilateral infiltrates). Now maintaining oxygen saturations on supplemental oxygen by nasal cannula (utilizes 3 L/min at baseline), afebrile >48 hours, WBCs normal. Clinically improved. The patient was initially admitted to the ICU; downgraded to telemetry status. Continue supplemental oxygen and BiPAP as needed to maintain oxygen saturations >89 percent. Continue scheduled and as needed nebulizer treatments; decreased frequency of scheduled nebulizer treatments. Continue prednisone 60 mg daily. Mucinex twice daily. She is empirically treated with IV vancomycin and Levaquin for CAP. Incentive spirometer and flutter valve to bedside. (2) COPD (chronic obstructive pulmonary disease) Qualifiers: COPD type: emphysema Is this a current diagnosis for this admission?: Yes Plan: Improved; regiment as above. (3) Pneumonia Qualifiers: Laterality: bilateral Lung location: lower lobe of lung Is this a current diagnosis for this admission?: Yes Plan: Improved. Patient presented with a purulent cough with acute respiratory failure and hypoxia. CXR revealed small bibasilar consolidation and effusions; atelectasis versus pneumonia. Blood cultures are negative at 72 hours. Sputum cultures have not been obtained. She was empirically placed on IV vancomycin and Levaquin; vancomycin is discontinued today. Transition to p.o. Levaquin. Remaining management as above. (4) HIV (human immunodeficiency virus infection) Qualifiers: HIV symptom status: asymptomatic Qualified Code(s): Z21 - Asymptomatic human immunodeficiency virus [HIV] infection status Is this a current diagnosis for this admission?: Yes Plan: Continue home antiviral therapy regiment. (5) Metastatic breast cancer Is this a current diagnosis for this admission?: Yes Plan: The patient's oncologist, Dr. Narayanan, has been consulted; appreciate her evaluation recommendations. Defer management of metastatic disease to oncology. Discussed with Dr. Narayanan today. Recommend transfusing for hemoglobin less than 8, platelets less than 10 if not bleeding otherwise maintain greater than 20. 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 (7) Hypokalemia Is this a current diagnosis for this admission?: Yes Plan: Replace with oral potassium today. We will continue to monitor daily chemistries and address as indicated. (8) Anemia, chronic disease Is this a current diagnosis for this admission?: Yes Plan: Anemia of chronic disease in patient with metastatic breast cancer. Discussed with Dr. Narayanan. Hemoglobin currently 8.0 s/p 2 units PRBC. No evidence of active bleeding at this time. Recommend transfusing for hemoglobin less than 8. (9) Debility Is this a current diagnosis for this admission?: Yes Plan: PT/OT are consulted; recommend continued rehab at discharge. Discharge planning is consulted. - Time Time Spent with patient: 15-24 minutes Medications reviewed and adjusted accordingly: Yes Anticipated discharge: SNF Within: within 24 hours
[2018-07-30] MEDS: OXYCODONE HCL IR 5 MG TABLET PO PRN (15:24)
[2018-07-30] MEDS ORDERED: LEVOFLOXACIN 750 MG TABLET PO SCH (16:00)
[2018-07-30] MEDS: IPRATROPIUM/ALBUTEROL 0.5-2.5 MG/3 ML AMPUL NEB SCH (19:06)
[2018-07-30] MEDS: EMTRICITABINE/TENOFOVIR 200-300 MG TABLET PO SCH (22:54)
[2018-07-31] MEDS: OXYCODONE HCL IR 5 MG TABLET PO PRN ×2 (02:03→09:56)
[2018-07-31] MEDS: IPRATROPIUM/ALBUTEROL 0.5-2.5 MG/3 ML AMPUL NEB SCH (09:21)
[2018-07-31 09:30] LABS: HEMATOCRIT 24.2 % (36.0-47.0); HEMOGLOBIN 8.3 g/dL (12.0-15.5); MEAN CORPUSCULAR HEMOGLOBIN 32.1 pg (27.0-33.4); MEAN CORPUSCULAR HGB CONC 34.3 g/dL (32.0-36.0); MEAN CORPUSCULAR VOLUME 94 fl (80-97); RED BLOOD COUNT 2.58 10^6/uL (3.72-5.28); RED CELL DISTRIBUTION WIDTH 21.5 % (11.5-14.0)
[2018-07-31 09:49] LABS: PLATELET COUNT 10 10^3/uL (150-450)
[2018-07-31] MEDS: TAMOXIFEN CITRATE 10 MG TABLET PO SCH (09:56)
[2018-07-31] MEDS: PREDNISONE 20 MG TABLET PO SCH (09:56)
[2018-07-31] MEDS: OXYCODONE HCL SR 40 MG TABLET PO SCH (09:57)
[2018-07-31] MEDS: GUAIFENESIN 600 MG TABLET.SA PO SCH (09:57)
[2018-07-31] MEDS: METOCLOPRAMIDE HCL 10 MG TABLET PO SCH (09:57)
[2018-07-31] MEDS: PREGABALIN 75 MG CAPSULE PO SCH (09:57)
[2018-07-31] MEDS: FAMOTIDINE 20 MG TABLET PO SCH (09:57)
[2018-07-31] MEDS: LORATADINE 10 MG TABLET PO SCH (09:57)
[2018-07-31] MEDS: RALTEGRAVIR POTASSIUM 400 MG TABLET PO SCH (10:01)
[2018-07-31] MEDS ORDERED: NORMAL SALINE 250 ML IV PRN ×2 (10:19)
[2018-07-31 14:50] VITALS: BP 126/74
[2018-08-01 08:42] LABS: WHITE BLOOD COUNT 6.7 10^3/uL (4.0-10.5)
--- NOTE | 2018-08-04 14:24 | PDOC DISCHARGE SUMMARY ---
General - Admit/Disc Date/PCP Admission Date/Primary Care Provider: 07/26/18 17:08 MORAIMA JARQUIN NP Discharge Date: 07/31/18 - Discharge Diagnosis (1) Acute and chronic respiratory failure Is this a current diagnosis for this admission?: Yes Summary: Improved; patient now asymptomatic and maintaining oxygen saturations on her baseline O2 requirement, afebrile >48 hours, WBCs normal. Secondary to an exacerbation of her chronic obstructive pulmonary disease and the CAP (bilateral infiltrates). The patient was initially admitted to the ICU; downgraded to telemetry status. She was provided supplemental oxygen and BiPAP as needed to maintain oxygen saturations >89 percent, scheduled and as needed nebulizer treatments, steroid therapy, mucinex twice daily, and aggressive pulmonary toilet with incentive spirometer, flutter valve, and prompt ambulation. She was empirically treated with IV vancomycin and Levaquin for CAP. Her symptoms rapidly improved and at discharge, she was asymptomatic and maintaining her oxygen saturations while ambulatory on her baseline oxygen requirement. She was provided prescriptions for levaquin, prednisone, and mucinex. She is advised to follow up with her PCP within 1 week. She is instructed to return to the emergency department as needed for concerning symptoms. (2) COPD (chronic obstructive pulmonary disease) Is this a current diagnosis for this admission?: Yes Summary: COPD exacerbation is resolved. Secondary to CAP. Management as above. (3) Pneumonia Is this a current diagnosis for this admission?: Yes Summary: Significantly improved. Patient presented with a purulent cough with acute respiratory failure and hypoxia. CXR revealed small bibasilar consolidation and effusions; atelectasis versus pneumonia. Blood cultures are negative at 5 days. Sputum cultures were ordered, but not obtained due to resolution of patient's productive cough. She was empirically placed on IV vancomycin and Levaquin; vancomycin was discontinued once patient had been afebrile >48 hrs with nml blood cultures at 72 hrs. She is transitioned to p.o. Levaquin to complete course of therapy post discharge. Remaining management as above. (4) HIV (human immunodeficiency virus infection) Is this a current diagnosis for this admission?: Yes Summary: Continue home antiviral therapy regiment. (5) Metastatic breast cancer Is this a current diagnosis for this admission?: Yes Summary: The patient's oncologist, Dr. Narayanan, was been consulted; appreciate her evaluation recommendations. Defer management of metastatic disease to oncology. She is to follow up with Dr. Narayanan's office as scheduled on 08/03/18. (6) Polycythemia Is this a current diagnosis for this admission?: Yes Summary: Discussed with Dr. Narayanan; polycythemia is secondary to chemoradiation therapy. Patient receives weekly transfusions through Dr. Cardoso's office. Dr. Cardoso recommended transfusing for hemoglobin less than 8, platelets less than 10 if not bleeding, otherwise maintain greater than 20. Patient received a total of 2 units PRBC and 3 units of PLT this admission. She was transfused one of the PLT units immediately prior to discharge. Spoke with Dr. Narayanan's nurse and confirmed that the patient had nurse visit scheduled in 3 days (08/03/18) for lab work and additional transfusions as indicated. Patient is advised of the importance of keeping appointment on Friday. She is instructed to return to the emergency department immediately for any uncontrollable bleeding or large/unexplained bruising. (7) Anemia, chronic disease Is this a current diagnosis for this admission?: Yes Summary: Anemia of chronic disease in patient with metastatic breast cancer. Discussed with Dr. Narayanan. Hemoglobin stabilized at 8.3 s/p 2 units PRBC. No evidence of active bleeding at this time. Keep follow up appointment with Dr. Narayanan's office as scheduled in three days. (8) Debility Is this a current diagnosis for this admission?: Yes Summary: PT/OT are consulted; recommend continued rehab at discharge. Patient adamantly declines SNF for short term rehab. She is discharged to home with home health nursing, physical therapy, and aide services. (9) Hypokalemia Is this a current diagnosis for this admission?: Yes Summary: Resolved. (10) Pasteurella cellulitis due to cat bite Is this a current diagnosis for this admission?: Yes Summary: Resolved. Evidently patient completed antibiotic therapy prior to this hospitalization - Additional Information Resuscitation Status: Full Code Discharge Diet: Cardiac Discharge Activity: Activity As Tolerated, Balance Activity w/Rest, Slowly Increase Activity Prescriptions: Guaifenesin [Mucinex Sr 600 mg Tablet.sa] 600 mg PO Q12 #14 tablet.sa Levofloxacin [Levaquin 750 mg Tablet] 750 mg PO DAILY@1600 #4 tablet Prednisone [Deltasone 20 mg Tablet] 60 mg PO DAILY #9 tablet Home Medications: Albuterol Sulfate [Albuterol Sulfate 2.5mg/3 mL] 1 vial IH Q6HP PRN 10/28/13 Pregabalin [Lyrica] 1 cap PO QID 11/02/15 Albuterol Sulfate [Proair HFA] 2 puff IH Q4H PRN 02/18/18 Loratadine 10 mg PO DAILY 02/18/18 Metoclopramide HCl 10 mg PO QID 02/18/18 Omeprazole 40 mg PO BID 02/18/18 Ondansetron HCl [Zofran 8 mg Tablet] 8 mg PO Q8HP PRN 07/27/18 Tamoxifen Citrate [Nolvadex 10 mg Tablet] 10 mg PO Q12 07/27/18 Emtricitabine/Tenofovir [Truvada Tablet] 1 tab PO QHS tablet 07/31/18 Guaifenesin [Mucinex Sr 600 mg Tablet.sa] 600 mg PO Q12 #14 tablet.sa 07/31/18 Levofloxacin [Levaquin 750 mg Tablet] 750 mg PO DAILY@1600 #4 tablet 07/31/18 Oxycodone HCl [Oxy-Ir 5 mg Tablet] 10 mg PO Q6HP PRN tablet 07/31/18 Oxycodone HCl [Oxycontin Sr 40 mg Tablet] 40 mg PO Q12 tab.sr.12h 07/31/18 Prednisone [Deltasone 20 mg Tablet] 60 mg PO DAILY #9 tablet 07/31/18 Pregabalin [Lyrica 75 mg Capsule] 150 mg PO QID capsule 07/31/18 Raltegravir Potassium [Isentress 400 mg Tablet] 400 mg PO Q12 tablet 07/31/18 History of Present Illness History of Present Illness: Per H&P by Dr. Song: JEAN CARLOS FRIAS is a 52 year old female with a history of metastatic breast cancer, HIV/AIDS, COPD on 5L O2 who developed acute respiratory distress at home today. All history is obtained by patient's friend who is at the bedside. Patient was at home and being seen by her family when she became acutely SOB. She became notably confused. She has been compliant with her O2. Not complaining of recent illness, fevers, chills, per her friend. Patient does have a history of breast cancer and is on active oral therapy with Dr. Cardoso. She also was recently admitted for Pasteurella bactermia around 2 weeks ago. No additional information is obtained. EMS found patient to have O2 sat of 82. His ABG showed CO2 retention. She was started on BIPAP. Will be admitted to hospitalist service. Physical Exam Vital Signs: Temp Pulse Resp BP Pulse Ox 97.7 F 86 18 126/74 H 91 L 07/31/18 14:48 07/31/18 14:48 07/31/18 14:48 07/31/18 14:48 07/31/18 14:48 Intake & Output 07/30/18 07/31/18 08/01/18 06:59 06:59 06:59 Intake Total 1100 1200 441 Output Total 3100 600 Balance -2000 600 441 Weight 90.3 kg 89.4 kg General appearance: PRESENT: no acute distress, disheveled, obese, well-develo ped, well-nourished Head exam: PRESENT: atraumatic, normocephalic Eye exam: PRESENT: conjunctiva pink, EOMI, PERRLA. ABSENT: scleral icterus Ear exam: PRESENT: normal external ear exam Mouth exam: PRESENT: moist, tongue midline Teeth exam: PRESENT: poor dentation Neck exam: ABSENT: carotid bruit, JVD, lymphadenopathy, thyromegaly Respiratory exam: PRESENT: clear to auscultation kadeem, prolonged expiratory phas, symmetrical, unlabored, other - baseline oxygen requirement via NC. ABSENT: rales, rhonchi, wheezes Cardiovascular exam: PRESENT: RRR. ABSENT: diastolic murmur, rubs, systolic murmur Pulses: PRESENT: normal dorsalis pedis pul Vascular exam: PRESENT: normal capillary refill GI/Abdominal exam: PRESENT: normal bowel sounds, soft. ABSENT: distended, guarding, mass, organolmegaly, rebound, tenderness Rectal exam: PRESENT: deferred Extremities exam: PRESENT: full ROM. ABSENT: calf tenderness, clubbing, pedal edema Neurological exam: PRESENT: alert, awake, oriented to person, oriented to place, oriented to time, oriented to situation, CN II-XII grossly intact. ABSENT: motor sensory deficit Psychiatric exam: PRESENT: appropriate affect, normal mood. ABSENT: homicidal ideation, suicidal ideation Skin exam: PRESENT: dry, intact, warm. ABSENT: cyanosis, rash Results Laboratory Results: 07/31/18 09:03 07/30/18 04:46 07/31/18 07/31/18 09:03 11:13 WBC 6.7 RBC 2.58 L Hgb 8.3 L Hct 24.2 L MCV 94 MCH 32.1 MCHC 34.3 RDW 21.5 H Plt Count 10 L* Blood Type O POSITIVE 07/26/18 15:44 Blood Blood Culture - Final NO GROWTH IN 5 DAYS 07/26/18 07/26/18 17:41 17:41 Creatine Kinase 26 L CK-MB (CK-2) 0.33 Troponin I 0.016 Impressions: KUB X-Ray 07/27/18 00:00 IMPRESSION: 1. NO RADIOGRAPHIC EVIDENCE FOR ACUTE ABDOMINAL DISEASE. Colonic and rectal fecal burden. 2. Diffuse extensive osseous metastatic disease involving the visualized lower chest/thorax, and the osseous structures of the abdomen, pelvis and bilateral hips. Chest X-Ray 07/28/18 06:00 IMPRESSION: Pulmonary vascular prominence with mild perihilar edema. Stable small bilateral pleural effusions and bibasilar airspace disease. Qualifiers - * PATIENT BEING DISCHARGED WITH ANY OF THE FOLLOWING DIAGNOSIS: No Plan Discharge Plan: Patient is discharged to home with home health nursing, physical therapy, aide, and Palliative Care services. Follow up with Dr. Narayanan on Friday. Follow up with PCP within 1 week. STOP smoking. Return to the emergency department immediately for any uncontrollable bleeding or large/unexplained bruising, or any other concerning symptoms. Time Spent: Greater than 30 Minutes
== END 2018-07-31 15:10 | disposition home health service (06) | DRG 189 ==
LOC: ER 14:50 → EH 17:08 → ICU 22:30 → 5 07-29 14:34
PROVIDERS: ADMIT Internal Medicine; ATTEND Internal Medicine
PROC: 30233R1 Transfusion of Nonautologous Platelets into Peripheral Vein, Percutaneous Approach (ICD-10-PCS; principal; 2018-07-26)
PROC: 30233R1 Transfusion of Nonautologous Platelets into Peripheral Vein, Percutaneous Approach (ICD-10-PCS; 2018-07-27)
PROC: 30233N1 Transfusion of Nonautologous Red Blood Cells into Peripheral Vein, Percutaneous Approach (ICD-10-PCS; 2018-07-28)
PROC: 30233R1 Transfusion of Nonautologous Platelets into Peripheral Vein, Percutaneous Approach (ICD-10-PCS; 2018-07-31)
DX: J96.21 Acute and chronic respiratory failure with hypoxia (principal); J18.9 Pneumonia, unspecified organism; C79.51 Secondary malignant neoplasm of bone; J44.1 Chronic obstructive pulmonary disease with (acute) exacerbation; L03.90 Cellulitis, unspecified; E87.2 Acidosis; A28.0 Pasteurellosis; B20 Human immunodeficiency virus [HIV] disease; J96.22 Acute and chronic respiratory failure with hypercapnia; C50.919 Malignant neoplasm of unspecified site of unspecified female breast; K21.9 Gastro-esophageal reflux disease without esophagitis; B96.89 Other specified bacterial agents as the cause of diseases classified elsewhere; E87.6 Hypokalemia; D75.1 Secondary polycythemia; D63.0 Anemia in neoplastic disease; K59.00 Constipation, unspecified; F17.210 Nicotine dependence, cigarettes, uncomplicated; Z99.81 Dependence on supplemental oxygen; Z79.2 Long term (current) use of antibiotics; Z79.891 Long term (current) use of opiate analgesic; Z79.51 Long term (current) use of inhaled steroids; Z79.810 Long term (current) use of selective estrogen receptor modulators (SERMs); Z79.899 Other long term (current) drug therapy
CPT/HCPCS: 36415; 36430; 71045; 74018; 80048; 80053; 80202; 81001; 82550; 82553; 82803; 82962; 83010; 83605; 83615; 83735; 84484; 85025; 85027; 85362; 85379; 85384; 85610; 85730; 86850; 86900; 86901; 86920; 87040; 87086; 93005; 93010; 94640; 94660; 96365; 96375; 99291; J1170; J1630; J1956; J2060; J2250; J2930; J3370; J3490; J7030; J7060; J7512; J7620; P9016; P9035; S0028; S0119

== ENCOUNTER 2018-08-06 15:17 | Emergency (ER) | payer MEDICAID ==
[2018-08-06 15:32] VITALS: BP 102/56
--- NOTE | 2018-08-06 16:24 | ER Document Report ---
ED Medical Screen (RME) - General Chief Complaint: Abnormal Lab Results Stated Complaint: DIFFICULTY BREATHING Time Seen by Provider: 08/06/18 16:13 Primary Care Provider: HINA LAW MD [Primary Care Provider] - Follow up as needed TRAVEL OUTSIDE OF THE [place] IN LAST 30 DAYS: No - HPI Notes: 08/06/18 16:24 52-year-old female with a history of COPD, metastatic breast cancer, respiratory failure, HIV, chronic pain presents to the ED for issues with breathing and lethargy. Patient was discharged from [facility] on July 31 2018, bowel states that patient usually becomes this lethargic when her "CO2 is elevated". Patient is on 4 L nasal cannula and is oxygen dependent. Patient does follow with Dr. Law, oncologist and Dr. Perla Abreu, PCP for her care. Denies fevers, chills, chest pain,palpitations, snausea, vomiting, diarrhea, abdominal pain. Patient is typically placed on BiPAP per her spouse when she comes to the ER. I have greeted and performed a rapid initial assessment of this patient. A comprehensive ED assessment and evaluation of the patient, analysis of test results and completion of medical decision making process will be conducted by an additional ED providers. - Related Data Allergies/Adverse Reactions: latex Allergy (Severe, Verified 06/06/18 17:46) blisters,rash morphine [Morphine] Allergy (Severe, Verified 06/06/18 17:46) short of breath Sulfa (Sulfonamide Antibiotics) Allergy (Intermediate, Verified 06/06/18 17:46) rash adhesive Allergy (Verified 06/06/18 17:46) Plastic tape Adverse Reaction (Uncoded 06/06/18 17:46) Blisters Past Medical History - General Information source: Patient - Social History Cigarette use (# per day): Yes - Past Medical History Cardiac Medical History: Denies: Hx Congestive Heart Failure, Hx Coronary Artery Disease, Hx Heart Attack, Hx Hypertension Pulmonary Medical History: Reports: Hx Asthma, Hx COPD, Hx Pneumonia Denies: Hx Bronchitis Neurological Medical History: Denies: Hx Cerebrovascular Accident, Hx Seizures Renal/ Medical History: Denies: Hx Peritoneal Dialysis Malignancy Medical History: Reports: Hx Breast Cancer - Stage IV, mets to L5 and R & L posterior parietal skull. GI Medical History: Reports: Hx Gastroesophageal Reflux Disease. Denies: Hx Cirrhosis, Hx Ulcer Musculoskeltal Medical History: Reports Hx Arthritis - generalized, Reports Hx Musculoskeletal Deformity, Reports Hx Musculoskeletal Trauma Psychiatric Medical History: Reports: Hx Anxiety, Hx Depression Traumatic Medical History: Reports: Hx Fractures Past Surgical History: Reports: Hx Breast Surgery - Right lumpectomy x2 w/ axillary lymph node diseection., Hx Cholecystectomy, Hx Orthopedic Surgery - Left patellar reconstruction, Hx Tonsillectomy, Hx Tubal Ligation. Denies: Hx Hysterectomy - Immunizations Immunizations up to date: Yes Hx Diphtheria, Pertussis, Tetanus Vaccination: No History of Influenza Vaccine for 02/2017 - 07/2017 Season: Yes Influenza Administration Date for 02/2017 - 07/2017 Season: 02/16/18 Physical Exam - Vital signs Vitals: Temp Pulse Resp BP Pulse Ox 98.2 F 106 H 24 H 102/56 L 92 08/06/18 15:30 08/06/18 15:30 08/06/18 15:30 08/06/18 15:30 08/06/18 15:30 - Respiratory Respiratory status: Tripod position Chest status: Nontender Breath sounds: Decreased air movement Chest palpation: Normal - Cardiovascular Rhythm: Regular Murmur: Yes Course - Vital Signs Vital signs: Temp Pulse Resp BP Pulse Ox 98.2 F 106 H 24 H 102/56 L 92 08/06/18 15:30 08/06/18 15:30 08/06/18 15:30 08/06/18 15:30 08/06/18 15:30 Doctor's Discharge - Discharge Referrals: HINA LAW MD [Primary Care Provider] - Follow up as needed
[2018-08-06 17:29] LABS: VENOUS BLOOD BASE EXCESS 4.7 mmol/L; VENOUS BLOOD HCO3 35.9 mmol/L (20-32); VENOUS BLOOD PH 7.25 (7.30-7.42)
[2018-08-06 17:30] LABS: HEMATOCRIT 25.9 % (36.0-47.0); MEAN CORPUSCULAR HEMOGLOBIN 32.6 pg (27.0-33.4); MEAN CORPUSCULAR HGB CONC 34.8 g/dL (32.0-36.0); MEAN CORPUSCULAR VOLUME 94 fl (80-97); RED BLOOD COUNT 2.76 10^6/uL (3.72-5.28); RED CELL DISTRIBUTION WIDTH 19.4 % (11.5-14.0); WHITE BLOOD COUNT 4.9 10^3/uL (4.0-10.5)
[2018-08-06 17:32] LABS: VENOUS BLOOD PCO2 84.7 mmHg (35-63)
[2018-08-06 17:41] LABS: ALANINE AMINOTRANSFERASE 23 U/L (9-52); ALBUMIN 3.1 g/dL (3.5-5.0); ALKALINE PHOSPHATASE 464 U/L (38-126); ANION GAP 7 (5-19); ASPARTATE AMINO TRANSFERASE 36 U/L (14-36); BILIRUBIN,DIRECT 0.7 mg/dL (0.0-0.4); BILIRUBIN,TOTAL 1.7 mg/dL (0.2-1.3); BLOOD UREA NITROGEN 18 mg/dL (7-20); CALCIUM 8.5 mg/dL (8.4-10.2); CARBON DIOXIDE 36 mmol/L (22-30); CHLORIDE 93 mmol/L (98-107); GLUCOSE 138 mg/dL (75-110); POTASSIUM 3.9 mmol/L (3.6-5.0); SODIUM 136.1 mmol/L (137-145)
--- NOTE | 2018-08-06 17:41 | RADIOLOGY REPORT (SQ) ---
EXAM DESCRIPTION: CHEST SINGLE VIEW COMPLETED DATE/TIME: 08/06/2018 5:28 pm REASON FOR STUDY: sob COMPARISON: Chest films 07/28/2018, 07/26/2018, 07/17/2018 CT chest 05/23/2018 EXAM PARAMETERS: NUMBER OF VIEWS: One view. TECHNIQUE: Single frontal radiographic view of the chest acquired. RADIATION DOSE: NA LIMITATIONS: None. FINDINGS: LUNGS AND PLEURA: Trace bilateral pleural effusions are present with bibasilar atelectasis . This is similar compared to 07/28/2018 and 07/26/2018. No pneumothorax MEDIASTINUM AND HILAR STRUCTURES: No masses. Contour normal. HEART AND VASCULAR STRUCTURES: Stable mild cardiomegaly BONES: Diffuse bony metastatic disease with pathologic fracture left lower lateral ribs HARDWARE: None in the chest. OTHER: No other significant finding. IMPRESSION: Stable trace bilateral pleural effusions and bibasilar airspace disease compared to prev ious studies. TECHNICAL DOCUMENTATION: JOB ID: [id number] [employer]- All Rights Reserved Reading location - IP/workstation name: [email or web address]
[2018-08-06 18:15] LABS: ABSOLUTE LYMPHOCYTES# (MANUAL) 1.1 10^3/uL (0.5-4.7); ABSOLUTE MONOCYTES # (MANUAL) 0.2 10^3/uL (0.1-1.4); ABSOLUTE NEUTROPHILS# (MANUAL) 3.4 10^3/uL (1.7-8.2); BAND NEUTROPHILS % (MANUAL) 6 % (3-5); BASOPHILS % (MANUAL) 0 % (0-2); EOSINOPHILS % (MANUAL) 1 % (0-6); LYMPHOCYTES % (MANUAL) 22 % (13-45); METAMYELOCYTES % (MANUAL) 1 % (0); MONOCYTES % (MANUAL) 5 % (3-13); MYELOCYTES % (MANUAL) 1 % (0); NUCLEATED RED BLOOD CELLS 14 /100 WBC (0); PROMYELOCYTES % (MANUAL) 2 % (0); SEGMENTED NEUTROPHILS % (MAN) 60 % (42-78); TOTAL CELLS COUNTED 100
--- NOTE | 2018-08-06 18:25 | ER Document Report ---
ED General - General Chief Complaint: Abnormal Lab Results Stated Complaint: DIFFICULTY BREATHING Time Seen by Provider: 08/06/18 16:13 Primary Care Provider: HINA LAW MD [Primary Care Provider] - Follow up as needed Mode of Arrival: Stretcher Information source: Patient Notes: This is a 52-year-old female with a history of COPD (4 L oxygen), metastatic breast cancer, thrombocytopenia who presents to the emergency room with increased sleepiness, decreased arousal. Patient states she has been short of breath recently. TRAVEL OUTSIDE OF THE [place] IN LAST 30 DAYS: No - HPI Onset: Yesterday Onset/Duration: Gradual Quality of pain: No pain Severity: None Pain Level: Denies Associated symptoms: Shortness of breath. denies: Chills, Fever Exacerbated by: Denies Relieved by: Denies Similar symptoms previously: No Recently seen / treated by doctor: No - Related Data Allergies/Adverse Reactions: latex Allergy (Severe, Verified 08/06/18 17:14) blisters,rash morphine [Morphine] Allergy (Severe, Verified 08/06/18 17:14) short of breath Sulfa (Sulfonamide Antibiotics) Allergy (Intermediate, Verified 08/06/18 17:14) rash adhesive Allergy (Verified 08/06/18 17:14) Plastic tape Adverse Reaction (Uncoded 08/06/18 17:14) Blisters Past Medical History - General Information source: Patient - Social History Smoking Status: Current Every Day Smoker Cigarette use (# per day): Yes Chew tobacco use (# tins/day): No Frequency of alcohol use: None Drug Abuse: None Lives with: Alone Family History: Reviewed & Not Pertinent Patient has suicidal ideation: No Patient has homicidal ideation: No - Past Medical History Cardiac Medical History: Denies: Hx Congestive Heart Failure, Hx Coronary Artery Disease, Hx Heart Attack, Hx Hypertension Pulmonary Medical History: Reports: Hx Asthma, Hx COPD, Hx Pneumonia Denies: Hx Bronchitis Neurological Medical History: Denies: Hx Cerebrovascular Accident, Hx Seizures Renal/ Medical History: Denies: Hx Peritoneal Dialysis Malignancy Medical History: Reports: Hx Breast Cancer - Stage IV, mets to L5 and R & L posterior parietal skull. GI Medical History: Reports: Hx Gastroesophageal Reflux Disease. Denies: Hx Cirrhosis, Hx Ulcer Musculoskeletal Medical History: Reports Hx Arthritis - generalized, Reports Hx Musculoskeletal Deformity, Reports Hx Musculoskeletal Trauma Psychiatric Medical History: Reports: Hx Anxiety, Hx Depression Traumatic Medical History: Reports: Hx Fractures Past Surgical History: Reports: Hx Breast Surgery - Right lumpectomy x2 w/ axillary lymph node diseection., Hx Cholecystectomy, Hx Orthopedic Surgery - Left patellar reconstruction, Hx Tonsillectomy, Hx Tubal Ligation. Denies: Hx Hysterectomy - Immunizations Immunizations up to date: Yes Hx Diphtheria, Pertussis, Tetanus Vaccination: No Hx Pneumococcal Vaccination: 01/26/15 Review of Systems - Review of Systems Constitutional: denies: Chills, Fever EENT: No symptoms reported Cardiovascular: No symptoms reported Respiratory: See HPI Gastrointestinal: No symptoms reported Genitourinary: No symptoms reported Female Genitourinary: No symptoms reported Musculoskeletal: No symptoms reported Skin: No symptoms reported Hematologic/Lymphatic: No symptoms reported Neurological/Psychological: See HPI Physical Exam - Vital signs Vitals: Temp Pulse Resp BP Pulse Ox 98.2 F 106 H 24 H 102/56 L 92 08/06/18 15:30 08/06/18 15:30 08/06/18 15:30 08/06/18 15:30 08/06/18 15:30 Notes: Physical exam: GENERAL: The patient is lethargic, she does recognize me, she does answer questions and is cooperative for the exam. Patient is definitely more lethargic than the last time I saw her. HEAD: Atraumatic, normocephalic. EYES: Pupils equal round and reactive to light, extraocular movements intact, sclera anicteric, conjunctiva are normal. ENT: TMs normal, nares patent, oropharynx clear without exudates. Moist mucous membranes. NECK: Normal range of motion, supple without obvious mass or JVD. LUNGS: Breath sounds clear to auscultation bilaterally and equal. No wheezes rales or rhonchi. HEART: Regular rate and rhythm without murmurs, rubs or gallops. ABDOMEN: Soft, normoactive bowel sounds. No tenderness to palpation. No guarding, no rebound. No masses appreciated. EXTREMITIES: Chronic 1+ edema bilaterally lower extremities NEUROLOGICAL: Cranial nerves II through XII grossly intact. Normal speech, moving all extremities. PSYCH: Normal mood, normal affect. SKIN: Patient does have chronic petechiae from her thrombocytopenia Course - Re-evaluation Re-evalutation: 08/07/18 03:53 Note: Patient was placed on BiPAP. After being on BiPAP for a while, was called to the room. Patient was sitting up in the chair and taken the BiPAP off and stated she is going home to take care of her dog. I did tell her that I wanted her admitted because I am concerned about her respiratory status but she says that there is no way she is staying. At that point, she took out her phone and she called a friend to get a ride home. I explained the risks of respiratory failure and and patient filled out an AMA form. - Vital Signs Vital signs: Temp Pulse Resp BP Pulse Ox 98.2 F 106 H 24 H 102/56 L 92 08/06/18 15:30 08/06/18 15:30 08/06/18 15:30 08/06/18 15:30 08/06/18 15:30 - Laboratory Result Diagrams: 08/06/18 16:59 08/06/18 16:59 Laboratory results interpreted by me: 08/06/18 08/06/18 08/06/18 16:59 16:59 16:59 RBC 2.76 L Hgb 9.0 L Hct 25.9 L RDW 19.4 H Plt Count 9 L* Band Neutrophils % 6 H Metamyelocytes % 1 H Myelocytes % 1 H Promyelocytes % 2 H Immature Leukocytes % 1 H VBG pH 7.25 L VBG pCO2 84.7 H* VBG HCO3 35.9 H Sodium 136.1 L Chloride 93 L Carbon Dioxide 36 H Glucose 138 H Total Bilirubin 1.7 H Direct Bilirubin 0.7 H Alkaline Phosphatase 464 H NT-Pro-B Natriuret Pep Total Protein 6.0 L Albumin 3.1 L 08/06/18 16:59 RBC Hgb Hct RDW Plt Count Band Neutrophils % Metamyelocytes % Myelocytes % Promyelocytes % Immature Leukocytes % VBG pH VBG pCO2 VBG HCO3 Sodium Chloride Carbon Dioxide Glucose Total Bilirubin Direct Bilirubin Alkaline Phosphatase NT-Pro-B Natriuret Pep 1900 H Total Protein Albumin - Diagnostic Test Radiology reviewed: Image reviewed, Reports reviewed - EKG Interpretation by Me Rate: Tachycardia - EKG shows sinus tachycardia with a ventricular rate of 110, no acute ST-T wave changes Discharge - Discharge Clinical Impression: Chronic respiratory failure Condition: Poor Disposition: AGAINST MEDICAL ADVICE Referrals: HINA LAW MD [Primary Care Provider] - Follow up as needed
[2018-08-06 18:28] LABS: ANISOCYTOSIS 2+; HYPOCHROMASIA SLIGHT; PLATELET COMMENT DECREASED; POLYCHROMASIA SLIGHT
[2018-08-06 18:29] LABS: IMMATURE MONONUCLEAR% (MANUAL) 1 % (0)
[2018-08-06] MEDS ORDERED: IPRATROPIUM/ALBUTEROL 0.5-2.5 MG/3 ML AMPUL NEB ONE (18:30)
[2018-08-06 18:40] LABS: PLATELET COUNT 9 10^3/uL (150-450)
[2018-08-06 18:53] LABS: NT PRO BNP 1900 pg/mL (5-900)
[2018-08-06 19:01] LABS: TROPONIN I < 0.012 ng/mL
--- NOTE | 2018-08-06 22:53 | EKG REPORT ---
SEVERITY:- BORDERLINE ECG - PROBABLE A FIB, REC REPEAT EKG : Confirmed by: Brittany Varma 06-Aug-2018 22:53:28
--- NOTE | 2018-08-06 22:54 | EKG REPORT ---
SEVERITY:- BORDERLINE ECG - SINUS TACHYCARDIA BORDERLINE R WAVE PROGRESSION, ANTERIOR LEADS : Confirmed by: Brittany Varma 06-Aug-2018 22:53:48
== END 2018-08-06 19:40 | disposition left against medical advice (07) ==
LOC: ER 15:17
DX: J96.10 Chronic respiratory failure, unspecified whether with hypoxia or hypercapnia (principal); Z99.81 Dependence on supplemental oxygen; F17.210 Nicotine dependence, cigarettes, uncomplicated; J44.9 Chronic obstructive pulmonary disease, unspecified; Z90.49 Acquired absence of other specified parts of digestive tract; Z98.51 Tubal ligation status; Z91.040 Latex allergy status; Z88.6 Allergy status to analgesic agent; Z88.2 Allergy status to sulfonamides
CPT/HCPCS: 36415; 71045; 80053; 82803; 83880; 84484; 85025; 93005; 93010; 99284

== ENCOUNTER 2018-08-08 06:57 | Inpatient (IN) | payer MEDICAID ==
[2018-08-08] MEDS ORDERED: ALBUTEROL SULFATE 0.083% NEB 2.5 MG/3 ML AMPUL NEB ONE (07:06)
[2018-08-08] MEDS ORDERED: METHYLPREDNISOLONE INJ 125 MG/2 ML SDV IV ONE (07:06)
[2018-08-08] MEDS ORDERED: IPRATROPIUM/ALBUTEROL 0.5-2.5 MG/3 ML AMPUL NEB ONE (07:06)
--- NOTE | 2018-08-08 07:12 | ER Document Report ---
ED General - General Stated Complaint: SHORTNESS OF BREATH Time Seen by Provider: 08/08/18 07:05 Primary Care Provider: HINA LAW MD [Primary Care Provider] - Follow up as needed TRAVEL OUTSIDE OF THE [place] IN LAST 30 DAYS: No - HPI Notes: Patient is a 52-year-old female that presents to the emergency department for chief complaint of respiratory distress. Patient usually sleeps on 4 L nasal cannula oxygen, her boyfriend states that sometime in the night it fell off. When EMS arrived she was 80% back on her 4 L. Patient has a history of CHF and COPD. She does not sleep with CPAP but is in the process of getting established with pulmonary medicine to obtain CPAP at bedtime. Boyfriend states that she appeared confused this morning after being found with her oxygen off, she was normal when they went to bed last night. Patient is denying any pain and recent illness but HPI is limited because of her acuity of condition and mentation. Past Medical History: COPD, CHF Past Surgical History: Reviewed in chart Social History: Reviewed in chart Family History: Reviewed and noncontributory for presenting illness Allergies: Reviewed, see documented allergy list. REVIEW OF SYSTEMS: Unable to obtain full ROS because of acuity of condition and confusion PHYSICAL EXAMINATION: Vital signs reviewed, nursing noted reviewed. GENERAL: Disheveled, obese and somnolent HEAD: Atraumatic, normocephalic. EYES: Eyes appear normal, extraocular movements intact, sclera anicteric, conjunctiva are normal. ENT: nares patent, oropharynx clear without exudates. Moist mucous membranes. NECK: Normal range of motion, supple without lymphadenopathy LUNGS: Prolonged expiratory phase, pursed lip breathing, moderate accessory muscle use, lung sounds diminished with wheezing and rhonchi bilaterally HEART: Tachycardic rate and regular rhythm without murmurs ABDOMEN: Soft, nontender, normoactive bowel sounds. No rebound, guarding, or rigidity. No masses appreciated. EXTREMITIES: Nontender, good range of motion, +2 pitting edema bilateral lower extremities NEUROLOGICAL: Oriented to person and place, somnolent, moves all extremities spontaneously Motor and sensory grossly intact on exam. SKIN: Warm, Dry, normal turgor, petechial rash to anterior chest and proximal bilateral upper extremities, chronic venous stasis color changes to bilateral lower extremities - Related Data Allergies/Adverse Reactions: latex Allergy (Severe, Verified 08/06/18 17:14) blisters,rash morphine [Morphine] Allergy (Severe, Verified 08/06/18 17:14) short of breath Sulfa (Sulfonamide Antibiotics) Allergy (Intermediate, Verified 08/06/18 17:14) rash adhesive Allergy (Verified 08/06/18 17:14) Plastic tape Adverse Reaction (Uncoded 08/06/18 17:14) Blisters Past Medical History - Social History Smoking Status: Former Smoker Family History: Reviewed & Not Pertinent - Past Medical History Cardiac Medical History: Denies: Hx Congestive Heart Failure, Hx Coronary Artery Disease, Hx Heart Attack, Hx Hypertension Pulmonary Medical History: Reports: Hx Asthma, Hx COPD, Hx Pneumonia Denies: Hx Bronchitis Neurological Medical History: Denies: Hx Cerebrovascular Accident, Hx Seizures Renal/ Medical History: Denies: Hx Peritoneal Dialysis Malignancy Medical History: Reports: Hx Breast Cancer - Stage IV, mets to L5 and R & L posterior parietal skull. GI Medical History: Reports: Hx Gastroesophageal Reflux Disease. Denies: Hx Cirrhosis, Hx Ulcer Musculoskeletal Medical History: Reports Hx Arthritis - generalized, Reports Hx Musculoskeletal Deformity, Reports Hx Musculoskeletal Trauma Psychiatric Medical History: Reports: Hx Anxiety, Hx Depression Traumatic Medical History: Reports: Hx Fractures Past Surgical History: Reports: Hx Breast Surgery - Right lumpectomy x2 w/ axillary lymph node diseection., Hx Cholecystectomy, Hx Orthopedic Surgery - Left patellar reconstruction, Hx Tonsillectomy, Hx Tubal Ligation. Denies: Hx Hysterectomy - Immunizations Immunizations up to date: Yes Hx Diphtheria, Pertussis, Tetanus Vaccination: No Hx Pneumococcal Vaccination: 01/26/15 Physical Exam - Vital signs Vitals: Pulse Ox 100 08/08/18 07:05 Course - Re-evaluation Re-evalutation: 08/08/18 07:11 Vitals reviewed. Nursing notes reviewed. Patient presented on nonrebreather with an O2 of 100%. She is somnolent and likely retaining CO2. Patient placed on BiPAP. She is able to tell me her name and that she is at the hospital. Currently she is able to tolerate BiPAP and is protecting her airway sufficiently. We will obtain ABG and monitor closely. Patient given DuoNeb, albuterol and Solu-Medrol. EKG shows a tachycardia with no ischemic changes 08/08/18 07:24 Patient reevaluated and is tolerating BiPAP well. 08/08/18 08:51 Patient reevaluated. She was sleeping but woke up to verbal stimuli. Her work of breathing has improved since being placed on BiPAP. Patient's ABG shows chronic hypercapnic respiratory failure with compensation. She was hypoxic. Patient is also polycythemic with a platelet count today of only 4. She has no signs of active bleeding currently. She will be admitted to the ICU for her altered mentation and respiratory failure. Case discussed with Monica Levi [employer] who accepts admission. Laboratory 08/08/18 08/08/18 08/08/18 07:10 07:10 07:10 WBC 4.2 RBC 2.33 L Hgb 7.6 L Hct 22.0 L MCV 95 MCH 32.6 MCHC 34.5 RDW 19.6 H Plt Count 4 L* Total Counted 100 Seg Neutrophils % Not Reportable Seg Neuts % (Manual) 77 Band Neutrophils % 4 Lymphocytes % Not Reportable Lymphocytes % (Manual) 9 L Monocytes % Not Reportable Monocytes % (Manual) 8 Eosinophils % Not Reportable Eosinophils % (Manual) 0 Basophils % Not Reportable Basophils % (Manual) 0 Metamyelocytes % 1 H Promyelocytes % 1 H Absolute Neutrophils Not Reportable Abs Neuts (Manual) 3.5 Absolute Lymphocytes Not Reportable Abs Lymphs (Manual) 0.4 L Absolute Monocytes Not Reportable Abs Monocytes (Manual) 0.3 Absolute Eosinophils Not Reportable Absolute Eos (Manual) 0.0 Absolute Basophils Not Reportable Abs Basophils (Manual) 0.0 Nucleated RBCs 9 Platelet Comment DECREASED Polychromasia SLIGHT Poikilocytosis SLIGHT Basophilic Stippling PRESENT Anisocytosis 2+ Ovalocytes SLIGHT Schistocytes SLIGHT Carbonic Acid HCO3/H2CO3 Ratio ABG pH ABG pCO2 ABG pO2 ABG HCO3 ABG Total CO2 ABG O2 Saturation ABG Base Excess FiO2 Sodium 132.4 L Potassium 4.4 Chloride 91 L Carbon Dioxide 37 H Anion Gap 4 L BUN 17 Creatinine 0.63 Est GFR ( Amer) > 60 Est GFR (Non-Af Amer) > 60 Glucose 99 Calcium 8.7 Total Bilirubin 1.5 H Direct Bilirubin 0.7 H Neonat Total Bilirubin Not Reportable Neonat Direct Bilirubin Not Reportable Neonat Indirect Bili Not Reportable AST 37 H ALT 31 Alkaline Phosphatase 418 H Troponin I < 0.012 Total Protein 5.6 L Albumin 2.8 L 03/23/19 07:35 WBC RBC Hgb Hct MCV MCH MCHC RDW Plt Count Total Counted Seg Neutrophils % Seg Neuts % (Manual) Band Neutrophils % Lymphocytes % Lymphocytes % (Manual) Monocytes % Monocytes % (Manual) Eosinophils % Eosinophils % (Manual) Basophils % Basophils % (Manual) Metamyelocytes % Promyelocytes % Absolute Neutrophils Abs Neuts (Manual) Absolute Lymphocytes Abs Lymphs (Manual) Absolute Monocytes Abs Monocytes (Manual) Absolute Eosinophils Absolute Eos (Manual) Absolute Basophils Abs Basophils (Manual) Nucleated RBCs Platelet Comment Polychromasia Poikilocytosis Basophilic Stippling Anisocytosis Ovalocytes Schistocytes Carbonic Acid 1.99 H HCO3/H2CO3 Ratio 18:1 ABG pH 7.36 ABG pCO2 66.0 H ABG pO2 58.9 L ABG HCO3 36.4 H ABG Total CO2 38.5 H ABG O2 Saturation 88.7 L ABG Base Excess 8.3 FiO2 30% Sodium Potassium Chloride Carbon Dioxide Anion Gap BUN Creatinine Est GFR ( Amer) Est GFR (Non-Af Amer) Glucose Calcium Total Bilirubin Direct Bilirubin Neonat Total Bilirubin Neonat Direct Bilirubin Neonat Indirect Bili AST ALT Alkaline Phosphatase Troponin I Total Protein Albumin - Vital Signs Vital signs: Temp Pulse Resp BP Pulse Ox 22 H 100 08/08/18 07:06 08/08/18 07:06 - Laboratory Result Diagrams: 08/08/18 07:10 08/08/18 07:10 Laboratory results interpreted by me: 08/08/18 08/08/18 08/08/18 07:10 07:10 07:35 RBC 2.33 L Hgb 7.6 L Hct 22.0 L RDW 19.6 H Plt Count 4 L* Lymphocytes % (Manual) 9 L Metamyelocytes % 1 H Promyelocytes % 1 H Abs Lymphs (Manual) 0.4 L Carbonic Acid 1.99 H ABG pCO2 66.0 H ABG pO2 58.9 L ABG HCO3 36.4 H ABG Total CO2 38.5 H ABG O2 Saturation 88.7 L Sodium 132.4 L Chloride 91 L Carbon Dioxide 37 H Anion Gap 4 L Total Bilirubin 1.5 H Direct Bilirubin 0.7 H AST 37 H Alkaline Phosphatase 418 H Total Protein 5.6 L Albumin 2.8 L - EKG Interpretation by Me Additional EKG results interpreted by me: 08/08/18 07:12 0707: Sinus tachycardia, rate 119, normal axis, no ectopy, No STEMI Critical Care Note - Critical Care Note Total time excluding time spent on procedures (mins): 40 Comments: critical care time 40 exclusive from separate billable procedures for a patient requiring complex medical decision making, and high potential for clinical deterioration. Time spent obtaining history from patient or surrogate, discussions with consultants, development of treatment plan with patient or surrogate, evaluation of patient's response to treatment, examination of patient, ordering and performing treatments and interventions, ordering and review of laboratory studies, re-evaluation of patient's condition, ordering and review of radiographic studies and review of old charts Discharge - Discharge Clinical Impression: Thrombocytopenia, Pulmonary vascular congestion Hypercapnic respiratory failure Qualifiers: Chronicity: acute Qualified Code(s): J96.02 - Acute respiratory failure with hypercapnia Altered mental status Qualifiers: Altered mental status type: somnolence Qualified Code(s): R40.0 - Somnolence Condition: Stable Disposition: ADMITTED INPATIENT Admitting Provider: Hospitalist Unit Admitted: ICU Referrals: HINA LAW MD [Primary Care Provider] - Follow up as needed
[2018-08-08 07:33] LABS: MEAN CORPUSCULAR HEMOGLOBIN 32.6 pg (27.0-33.4); MEAN CORPUSCULAR HGB CONC 34.5 g/dL (32.0-36.0); MEAN CORPUSCULAR VOLUME 95 fl (80-97); RED BLOOD COUNT 2.33 10^6/uL (3.72-5.28); RED CELL DISTRIBUTION WIDTH 19.6 % (11.5-14.0); WHITE BLOOD COUNT 4.2 10^3/uL (4.0-10.5)
[2018-08-08 07:42] LABS: ALANINE AMINOTRANSFERASE 31 U/L (9-52); ALBUMIN 2.8 g/dL (3.5-5.0); ALKALINE PHOSPHATASE 418 U/L (38-126); ASPARTATE AMINO TRANSFERASE 37 U/L (14-36); BILIRUBIN,DIRECT 0.7 mg/dL (0.0-0.4); BILIRUBIN,TOTAL 1.5 mg/dL (0.2-1.3); BLOOD UREA NITROGEN 17 mg/dL (7-20); CALCIUM 8.7 mg/dL (8.4-10.2); GLUCOSE 99 mg/dL (75-110); POTASSIUM 4.4 mmol/L (3.6-5.0); TOTAL PROTEIN 5.6 g/dL (6.3-8.2)
[2018-08-08 07:48] LABS: CARBON DIOXIDE 37 mmol/L (22-30); CHLORIDE 91 mmol/L (98-107); SODIUM 132.4 mmol/L (137-145)
[2018-08-08 07:49] LABS: ANION GAP 4 (5-19)
[2018-08-08 07:57] LABS: ARTERIAL BLOOD BASE EXCESS 8.3 mmol/L; ARTERIAL BLOOD H2CO3 1.99 mmol/L (1.05-1.35); ARTERIAL BLOOD HCO3 36.4 mmol/L (20-24); ARTERIAL BLOOD O2 SATURATION 88.7 % (94-98); ARTERIAL BLOOD PH 7.36 (7.35-7.45); ARTERIAL BLOOD PO2 58.9 mmHg (80-100); ARTERIAL BLOOD TOTAL CO2 38.5 mmol/L (21-25)
[2018-08-08 07:58] LABS: ARTERIAL BLOOD FIO2 30%
[2018-08-08 07:59] LABS: HEMOGLOBIN 7.6 g/dL (12.0-15.5); PLATELET COUNT 4 10^3/uL (150-450)
[2018-08-08 08:05] LABS: ABSOLUTE LYMPHOCYTES# (MANUAL) 0.4 10^3/uL (0.5-4.7); ABSOLUTE MONOCYTES # (MANUAL) 0.3 10^3/uL (0.1-1.4); ABSOLUTE NEUTROPHILS# (MANUAL) 3.5 10^3/uL (1.7-8.2); BAND NEUTROPHILS % (MANUAL) 4 % (3-5); BASOPHILS % (MANUAL) 0 % (0-2); EOSINOPHILS % (MANUAL) 0 % (0-6); LYMPHOCYTES % (MANUAL) 9 % (13-45); METAMYELOCYTES % (MANUAL) 1 % (0); MONOCYTES % (MANUAL) 8 % (3-13); NUCLEATED RED BLOOD CELLS 9 /100 WBC (0); PROMYELOCYTES % (MANUAL) 1 % (0); SEGMENTED NEUTROPHILS % (MAN) 77 % (42-78); TOTAL CELLS COUNTED 100
[2018-08-08 08:07] LABS: ANISOCYTOSIS 2+; POLYCHROMASIA SLIGHT
[2018-08-08 08:08] LABS: OVALOCYTES SLIGHT; PLATELET COMMENT DECREASED; POIKILOCYTOSIS SLIGHT; SCHISTOCYTES SLIGHT
--- NOTE | 2018-08-08 08:30 | RADIOLOGY REPORT (SQ) ---
Clinical History : shortness of breath , Exam : Portable AP view of the chest 08/08/2018 7:05 AM CDT Comparisons : CT pulmonary angiogram May 23, 2018 Portable AP view of the chest August 06, 2018 Findings : There is mild diffuse peribronchial thickening throughout the lungs bilaterally. There are moderate bilateral pleural effusions with bilateral lower lobe airspace disease The heart is stable in size. The mediastinal contours are distorted by patient rotation to the left . There is diffuse heterogeneous sclerosis throughout the visualized axial and appendicular skeleton.. Limited evaluation of the upper abdomen demonstrates no gross abnormalities. Impression: 1. Pulmonary edema with bilateral pleural effusions and lower lobe airspace disease. 2. Stable diffuse osseous metastases.
[2018-08-08] MEDS ORDERED: GLUCAGON,HUMAN RECOMB 1 MG INJ SUBCUT PRN (09:40)
[2018-08-08] MEDS ORDERED: ACETAMINOPHEN 650 MG SUPP.RECT PR PRN (09:40)
[2018-08-08] MEDS ORDERED: DEXTROSE 50%-WATER 25 GM/50 ML DISP.SYRIN IV PRN ×2 (09:40)
[2018-08-08] MEDS ORDERED: DEXTROSE 40% GEL 15 GM TUBE PO PRN ×2 (09:40)
[2018-08-08] MEDS ORDERED: HALOPERIDOL LACTATE INJ 5 MG/1 ML VIAL ONE (09:50)
[2018-08-08] MEDS ORDERED: ONDANSETRON HCL INJ/PF 4 MG/2 ML SDV IV PRN (09:54)
[2018-08-08] MEDS ORDERED: BUMETANIDE INJ/PF 1 MG/4 ML SDV IV ONE ×2 (10:00→22:00)
[2018-08-08] MEDS ORDERED: NORMAL SALINE 250 ML IV PRN ×2 (10:08)
[2018-08-08] MEDS ORDERED: HALOPERIDOL LACTATE INJ 5 MG/1 ML VIAL IV ONE (10:30)
[2018-08-08] MEDS: PANTOPRAZOLE SODIUM 40 MG VIAL IV SCH ×2 (12:30→22:05)
[2018-08-08] MEDS ORDERED: HALOPERIDOL LACTATE INJ 5 MG/1 ML VIAL IV PRN (12:32)
--- NOTE | 2018-08-08 12:32 | EKG REPORT ---
SEVERITY:- BORDERLINE ECG - SINUS TACHYCARDIA BORDERLINE INFERIOR Q WAVES : Confirmed by: Brittany Varma 08-Aug-2018 12:31:36
[2018-08-08] MEDS ORDERED: LORAZEPAM INJ 2 MG/1 ML VIAL ONE ×2 (16:06→19:46)
--- NOTE | 2018-08-08 16:39 | PDOC H&P ---
History of Present Illness Admission Date/PCP: 08/08/18 09:15 HINA LAW MD Patient complains of: Shortness of breath History of Present Illness: JEAN CARLOS FRIAS is a 52 year old female with a PMH of metastatic breast cancer, polycythemia, HIV/AIDS, COPD on 5 L O2. She presents to [facility] for shortness of breath. She normally sleeps with her nasal cannula on and, according to friend, it fell off in the middle of the night. She does not sleep with CPAP but is in the process of getting established with pulmonary medicine to obtain CPAP at bedtime. Boyfriend states that she appeared confused this morning after being found with her oxygen off, which is what prompted him to call EMS. SPO2 on scene was 80% on 4 L nasal cannula. Upon arrival to the emergency department, CXR reveals bilateral pulmonary edema. Laboratory studies reveal anemia (Hgb 7.6, HCT 22), thrombocytopenia (platelets 4), hyponatremia (Na 132), ABG revealed chronic hypercapnic respiratory acidosis with metabolic compensation, hypoxia. Other laboratory studies relatively benign, including cardiac enzymes. The patient was treated with an albuterol and Atrovent nebulizer treatment. She was admitted to the hospitalist service for acute hypoxic respiratory failure. Upon assessment, the patient is resting in bed on BiPAP. She is very agitated and fidgeting around in the bed, attempting to remove her BiPAP mask. The patient is able to speak clearly but does not answer questions appropriately and she must pause in between sentences to catch her breath. Lung sounds are clear, diminished in the bases. Finger clubbing is present, no evidence of central or peripheral cyanosis. At one point, the patient was successful at removing her BiPAP mask and her SPO2 dropped to 76%. Administered 1 dose of Bumex while patient was in the emergency department. Plan to admit to ICU due to patient's tenuous respiratory status and need for multiple blood products. Past Medical History Cardiac Medical History: Denies: Congestive Heart Failure, Coronary Artery Disease, Myocardial Infarction, Hypertension Pulmonary Medical History: Reports: Asthma, Chronic Obstructive Pulmonary Disease (COPD), Pneumonia Denies: Bronchitis Neurological Medical History: Denies: Seizures Malignancy Medical History: Reports: Breast Cancer - Stage IV, mets to L5 and R & L posterior parietal skull. GI Medical History: Reports: Gastroesophageal Reflux Disease Denies: Cirrhosis Musculoskeltal Medical History: Reports: Arthritis - generalized Psychiatric Medical History: Reports: Depression Hematology: Reports: Anemia, Bleeding Tendencies Past Surgical History Past Surgical History: Reports: Cholecystectomy, Orthopedic Surgery - Left patellar reconstruction, Tonsillectomy, Tubal Ligation Denies: Hysterectomy Social History Information Source: Patient Lives with: Alone Smoking Status: Former Smoker Frequency of Alcohol Use: None Hx Recreational Drug Use: No Drugs: None Hx Prescription Drug Abuse: No - Advance Directive Resuscitation Status: Full Code Family History Family History: Reviewed & Not Pertinent Parental Family History Reviewed: No Children Family History Reviewed: Unknown Sibling(s) Family History Reviewed.: Unknown Medication/Allergy Home Medications: Albuterol Sulfate [Proair HFA Inhalation Aerosol 8.5 gm MDI] 2 puff IH Q2HP PRN 08/08/18 Albuterol Sulfate [Ventolin 0.083% Neb 2.5 mg/3 mL Ampul] 3 ml NEB Q4HP PRN 08/08/18 Loratadine [Claritin] 10 mg PO DAILY 08/08/18 Omeprazole 40 mg PO BIDACBS 08/08/18 Oxycodone HCl 30 mg PO Q3HP PRN 08/08/18 Oxycodone HCl [Oxycontin] 40 mg PO Q8 08/08/18 Pregabalin [Lyrica] 150 mg PO Q6 08/08/18 Tamoxifen Citrate [Nolvadex 10 mg Tablet] 10 mg PO BID 08/08/18 Allergies/Adverse Reactions: latex Allergy (Severe, Verified 08/06/18 17:14) blisters,rash morphine [Morphine] Allergy (Severe, Verified 08/06/18 17:14) short of breath Sulfa (Sulfonamide Antibiotics) Allergy (Intermediate, Verified 08/06/18 17:14) rash adhesive Allergy (Verified 08/06/18 17:14) Plastic tape Adverse Reaction (Uncoded 08/06/18 17:14) Blisters Review of Systems ROS unobtainable: Due to mental status Physical Exam Vital Signs: Temp Pulse Resp BP Pulse Ox 22 H 100 08/08/18 07:06 08/08/18 07:06 General appearance: PRESENT: mild distress, well-developed, well-nourished Eye exam: PRESENT: conjunctiva pale. ABSENT: PERRLA - irregular shaped r pupil Mouth exam: PRESENT: moist, tongue midline Teeth exam: PRESENT: poor dentation Neck exam: PRESENT: full ROM Respiratory exam: PRESENT: symmetrical. ABSENT: unlabored - labored Cardiovascular exam: PRESENT: RRR, tachycardia Pulses: PRESENT: normal radial pulses, normal dorsalis pedis pul Results Laboratory Results: 08/08/18 07:10 08/08/18 07:10 08/08/18 08/08/18 08/08/18 07:10 07:10 07:35 WBC 4.2 RBC 2.33 L Hgb 7.6 L Hct 22.0 L MCV 95 MCH 32.6 MCHC 34.5 RDW 19.6 H Plt Count 4 L* Seg Neutrophils % Not Reportable Lymphocytes % Not Reportable Monocytes % Not Reportable Eosinophils % Not Reportable Basophils % Not Reportable Absolute Neutrophils Not Reportable Absolute Lymphocytes Not Reportable Absolute Monocytes Not Reportable Absolute Eosinophils Not Reportable Absolute Basophils Not Reportable Carbonic Acid 1.99 H HCO3/H2CO3 Ratio 18:1 ABG pH 7.36 ABG pCO2 66.0 H ABG pO2 58.9 L ABG HCO3 36.4 H ABG O2 Saturation 88.7 L ABG Base Excess 8.3 FiO2 30% Sodium 132.4 L Potassium 4.4 Chloride 91 L Carbon Dioxide 37 H Anion Gap 4 L BUN 17 Creatinine 0.63 Est GFR ( Amer) > 60 Est GFR (Non-Af Amer) > 60 Glucose 99 Calcium 8.7 Total Bilirubin 1.5 H AST 37 H ALT 31 Alkaline Phosphatase 418 H Total Protein 5.6 L Albumin 2.8 L 08/08/18 08/08/18 07:10 07:10 Troponin I < 0.012 NT-Pro-B Natriuret Pep 687 Status: Imported from PACS Assessment and Plan - Diagnosis (1) Respiratory failure with hypoxia and hypercapnia Qualifiers: Chronicity: acute on chronic Qualified Code(s): J96.21 - Acute and chronic respiratory failure with hypoxia; J96.22 - Acute and chronic respiratory failure with hypercapnia Is this a current diagnosis for this admission?: Yes Plan: Secondary to COPD and pulmonary edema. CXR shows pulmonary edema, although patient has no history of CHF (BNP 687) Treated with IV Bumex bid Provided supplemental oxygen via BiPAP as needed to maintain SPO2>89%, will wean to nasal cannula as tolerated Scheduled and as needed nebulizer treatments Scheduled steroids Repeat ABG and CXR in a.m. (2) Pulmonary edema Qualifiers: Chronicity: acute Qualified Code(s): J81.0 - Acute pulmonary edema Is this a current diagnosis for this admission?: Yes Plan: Plan as above (3) Altered mental status Qualifiers: Altered mental status type: disorientation Qualified Code(s): R41.0 - Disorientation, unspecified Is this a current diagnosis for this admission?: Yes Plan: Likely secondary to hypoxia and hypercapnia, will hopefully resolve once p atient's respiratory status improves PRN Haldol for agitation Initiate BuSpar twice daily for anxiety Initiate risperidone twice daily for mood stabilization (4) COPD (chronic obstructive pulmonary disease) Qualifiers: COPD type: COPD with acute exacerbation Qualified Code(s): J44.1 - Chronic obstructive pulmonary disease with (acute) exacerbation Is this a current diagnosis for this admission?: Yes Plan: Long-standing history of COPD Management as above (5) HIV (human immunodeficiency virus infection) Qualifiers: HIV symptom status: unspecified Qualified Code(s): B20 - Human immunodeficiency virus [HIV] disease Is this a current diagnosis for this admission?: Yes Plan: Continue home antiviral therapy regimen Check CD4 count with a.m. labs (6) Metastatic breast cancer Is this a current diagnosis for this admission?: Yes Plan: Followed by Dr. Law Consulted oncology for continuity of care and management assistance According to her consult note from previous admission, treatment options for this patient include supportive care or palliative/hospice (7) Polycythemia Is this a current diagnosis for this admission?: Yes Plan: Discussed with Dr. 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 Law's office Transfuse PRBCs for Hgb<8.0 Transfuse platelets for < 10. Aim for platelet count of 10,000 (as long as patient is not bleeding). (8) Full code status Is this a current diagnosis for this admission?: Yes Plan: Confirmed with sister (medical power of patent prosecution attorney) that the patient is a full c ode Discussed patient's case with Dr. Law, she confirms that she has had multiple discussions with the patient regarding her CODE STATUS. Despite her grim prognosis, the patient wishes to remain a full code. - Time Time Spent with patient: 35 or more minutes Total Critical Time (Minutes): 60 Medications reviewed and adjusted accordingly: Yes - Inpatient Certification Based on my medical assessment, after consideration of the patient's comorbidities, presenting symptoms, or acuity I expect that the services needed warrant INPATIENT care.: Yes I certify that my determination is in accordance with my understanding of Medicare's requirements for reasonable and necessary INPATIENT services [42 CFR 412.3e].: Yes Medical Necessity: Need Close Monitoring Due to Risk of Patient Decompensation, Need For Continuous Telemetry Monitoring, Risk of Complication if Not Cared For in Hospital
[2018-08-08] MEDS ORDERED: LORAZEPAM INJ 2 MG/1 ML VIAL IV ONE (17:00)
[2018-08-08] MEDS: BUSPIRONE HCL 10 MG TABLET PO SCH (19:35)
[2018-08-08] MEDS: RISPERIDONE 0.25 MG TABLET PO SCH (19:54)
[2018-08-08] MEDS: HYDROMORPHONE HCL INJ/PF 2 MG/ML AMPULE IV PRN (21:35)
[2018-08-08] MEDS ORDERED: QUETIAPINE FUMARATE 25 MG TABLET PO SCH (22:00)
[2018-08-08 22:06] LABS: HEMATOCRIT 23.5 % (36.0-47.0); HEMOGLOBIN 8.1 g/dL (12.0-15.5); MEAN CORPUSCULAR HEMOGLOBIN 31.6 pg (27.0-33.4); MEAN CORPUSCULAR HGB CONC 34.7 g/dL (32.0-36.0); RED BLOOD COUNT 2.58 10^6/uL (3.72-5.28); RED CELL DISTRIBUTION WIDTH 17.8 % (11.5-14.0)
[2018-08-08 22:13] LABS: MEAN CORPUSCULAR VOLUME 91 fl (80-97)
[2018-08-08 22:26] LABS: WHITE BLOOD COUNT 4.2 10^3/uL (4.0-10.5)
[2018-08-08 22:30] LABS: PLATELET COUNT 17 10^3/uL (150-450)
[2018-08-09] MEDS: LORAZEPAM INJ 2 MG/1 ML VIAL IV PRN ×5 (00:45→14:58)
[2018-08-09 04:17] LABS: HEMOGLOBIN 8.1 g/dL (12.0-15.5); MEAN CORPUSCULAR HEMOGLOBIN 31.5 pg (27.0-33.4); MEAN CORPUSCULAR HGB CONC 35.3 g/dL (32.0-36.0); MEAN CORPUSCULAR VOLUME 89 fl (80-97); RED BLOOD COUNT 2.59 10^6/uL (3.72-5.28); WHITE BLOOD COUNT 3.9 10^3/uL (4.0-10.5)
[2018-08-09 04:19] LABS: INTERNATIONAL RATION (INR) 1.05; PROTHROMBIN TIME 14.3 SEC (11.4-15.4)
[2018-08-09 04:36] LABS: ALANINE AMINOTRANSFERASE 22 U/L (9-52); ALBUMIN 2.8 g/dL (3.5-5.0); ALKALINE PHOSPHATASE 357 U/L (38-126); ANION GAP 5 (5-19); ASPARTATE AMINO TRANSFERASE 37 U/L (14-36); BILIRUBIN,DIRECT 0.8 mg/dL (0.0-0.4); BILIRUBIN,TOTAL 1.9 mg/dL (0.2-1.3); BLOOD UREA NITROGEN 18 mg/dL (7-20); CALCIUM 8.3 mg/dL (8.4-10.2); CARBON DIOXIDE 37 mmol/L (22-30); CHLORIDE 97 mmol/L (98-107); GLUCOSE 77 mg/dL (75-110); SODIUM 138.7 mmol/L (137-145); TOTAL PROTEIN 5.4 g/dL (6.3-8.2)
[2018-08-09] MEDS: POTASSIUM CHLORIDE 20 MEQ/50 ML RTU IV SCH ×2 (05:32→07:31)
[2018-08-09] MEDS: BUSPIRONE HCL 10 MG TABLET PO SCH (05:33)
[2018-08-09 05:36] LABS: ARTERIAL BLOOD BASE EXCESS 10.7 mmol/L; ARTERIAL BLOOD H2CO3 1.49 mmol/L (1.05-1.35); ARTERIAL BLOOD HCO3 35.5 mmol/L (20-24); ARTERIAL BLOOD O2 SATURATION 97.7 % (94-98); ARTERIAL BLOOD PCO2 49.4 mmHg (35-45); ARTERIAL BLOOD PH 7.47 (7.35-7.45); ARTERIAL BLOOD PO2 96.8 mmHg (80-100)
[2018-08-09 05:49] LABS: ARTERIAL BLOOD FIO2 35%
[2018-08-09 05:50] LABS: PLATELET COUNT 19 10^3/uL (150-450)
[2018-08-09 05:51] LABS: ABSOLUTE LYMPHOCYTES# (MANUAL) 0.8 10^3/uL (0.5-4.7); ABSOLUTE MONOCYTES # (MANUAL) 0.3 10^3/uL (0.1-1.4); BAND NEUTROPHILS % (MANUAL) 1 % (3-5); BASOPHILS % (MANUAL) 0 % (0-2); EOSINOPHILS % (MANUAL) 0 % (0-6); LYMPHOCYTES % (MANUAL) 20 % (13-45); METAMYELOCYTES % (MANUAL) 3 % (0); MONOCYTES % (MANUAL) 8 % (3-13); MYELOCYTES % (MANUAL) 3 % (0); NUCLEATED RED BLOOD CELLS 16 /100 WBC (0); TOTAL CELLS COUNTED 100
[2018-08-09 05:52] LABS: ABSOLUTE NEUTROPHILS# (MANUAL) 2.8 10^3/uL (1.7-8.2); SEGMENTED NEUTROPHILS % (MAN) 65 % (42-78)
[2018-08-09 05:54] LABS: ANISOCYTOSIS 2+; HYPOCHROMASIA 1+; PLATELET COMMENT DECREASED; POIKILOCYTOSIS 1+; POLYCHROMASIA SLIGHT
[2018-08-09] MEDS: HYDROMORPHONE HCL INJ/PF 2 MG/ML AMPULE IV PRN ×4 (06:33→19:36)
--- NOTE | 2018-08-09 07:08 | RADIOLOGY REPORT (SQ) ---
EXAM DESCRIPTION: XR CHEST 1 VIEW COMPLETED DATE/TME: 08/09/2018 06:00 CLINICAL HISTORY: 52 years, Female, respiratory failure COMPARISON: 08/08/2018 chest NUMBER OF VIEWS: 1 TECHNIQUE: Portal chest LIMITATIONS: None. FINDINGS: Heart size is stable. Improved aeration of the lung bases bilaterally. Osteopenia. Interstitial edema. Multiple lytic lesions throughout the visualized osseous structures IMPRESSION: Improved aeration of the lung bases bilaterally copyright 2010 [employer]- All Rights Reserved
--- NOTE | 2018-08-09 09:21 | PDOC PROGRESS REPORT ---
Subjective Progress Note for:: 08/09/18 Subjective:: 52 y.o. F with a PMH of metastatic breast cancer, polycythemia, HIV/AIDS, COPD on 5 L O2. She was admitted to the hospitalist service for acute hypoxic respiratory failure stemming from pulmonary edema. Patient was seen this morning on rounds. She is resting in bed on BiPAP, attempting to remove her BiPAP mask and cardiac leads. The patient will open her eyes to tactile stimuli, she does not answer questions, she does not follow commands. She moves all extremities with purpose. Rhonchi auscultated in the left lower lobe, lung sounds clear in all right-sided lobes. S1-S2. Palpable pulses in her upper and lower extremities. Trace generalized edema. Anemia and thrombocytopenia resolved following multiple transfusions yesterday. ABG this morning shows a metabolic alkalosis, with respiratory compensation. CXR demonstrates improved aeration of the right lung, left lower lobe opacification still present, does not appear to be lobar pneumonia more likely residual pulmonary edema. Attempted nasal cannula trial, unfortunately once the BiPAP mask was removed, the patient became immediately tachypneic and her SPO2 dropped to 85%. Patient will remain in the ICU for hypoxic respiratory failure. Reason For Visit: COPD/CHF EXACERBATION Physical Exam Vital Signs: Temp Pulse Resp BP Pulse Ox 97.9 F 110 H 20 96/64 L 95 08/09/18 08:00 08/09/18 08:03 08/09/18 08:00 08/09/18 08:00 08/09/18 08:53 Intake & Output 08/08/18 08/09/18 08/10/18 06:59 06:59 06:59 Intake Total 1573 47 Output Total 3460 50 Balance -1887 -3 Weight 75.9 kg General appearance: PRESENT: mild distress Head exam: PRESENT: atraumatic Eye exam: PRESENT: conjunctiva pink, PERRLA Mouth exam: PRESENT: moist, tongue midline Teeth exam: PRESENT: poor dentation Neck exam: PRESENT: full ROM Respiratory exam: PRESENT: clear to auscultation kadeem, rhonchi - LLL, symmetrical, unlabored Cardiovascular exam: PRESENT: tachycardia Pulses: PRESENT: normal radial pulses, normal dorsalis pedis pul Vascular exam: PRESENT: pallor GI/Abdominal exam: PRESENT: soft. ABSENT: distended, tenderness Rectal exam: PRESENT: deferred Extremities exam: PRESENT: full ROM, pedal edema Musculoskeletal exam: PRESENT: full ROM. ABSENT: ambulatory - Restrained Neurological exam: PRESENT: alert, awake, oriented to person, oriented to place, oriented to time, oriented to situation Psychiatric exam: PRESENT: appropriate affect Skin exam: PRESENT: dry, intact, pallor, petechiae - Lower extremities Results Laboratory Results: 08/09/18 03:57 08/09/18 03:57 08/08/18 08/08/18 08/09/18 10:50 22:00 03:57 WBC 4.2 3.9 L RBC 2.58 L 2.59 L Hgb 8.1 L 8.1 L Hct 23.5 L 23.0 L MCV 91 D 89 MCH 31.6 31.5 MCHC 34.7 35.3 RDW 17.8 H 18.0 H Plt Count 17 L* D 19 L* Seg Neutrophils % Not Reportable Lymphocytes % Not Reportable Monocytes % Not Reportable Eosinophils % Not Reportable Basophils % Not Reportable Absolute Neutrophils Not Reportable Absolute Lymphocytes Not Reportable Absolute Monocytes Not Reportable Absolute Eosinophils Not Reportable Absolute Basophils Not Reportable Carbonic Acid HCO3/H2CO3 Ratio ABG pH ABG pCO2 ABG pO2 ABG HCO3 ABG O2 Saturation ABG Base Excess FiO2 Sodium Potassium Chloride Carbon Dioxide Anion Gap BUN Creatinine Est GFR ( Amer) Est GFR (Non-Af Amer) Glucose Calcium Magnesium Total Bilirubin AST ALT Alkaline Phosphatase Ammonia Total Protein Albumin TSH Blood Type O POSITIVE Antibody Screen NEGATIVE 08/09/18 08/09/18 08/09/18 03:57 03:57 03:57 WBC RBC Hgb Hct MCV MCH MCHC RDW Plt Count Seg Neutrophils % Lymphocytes % Monocytes % Eosinophils % Basophils % Absolute Neutrophils Absolute Lymphocytes Absolute Monocytes Absolute Eosinophils Absolute Basophils Carbonic Acid HCO3/H2CO3 Ratio ABG pH ABG pCO2 ABG pO2 ABG HCO3 ABG O2 Saturation ABG Base Excess FiO2 Sodium 138.7 Potassium 3.0 L* D Chloride 97 L Carbon Dioxide 37 H Anion Gap 5 BUN 18 Creatinine 0.58 Est GFR ( Amer) > 60 Est GFR (Non-Af Amer) > 60 Glucose 77 Calcium 8.3 L Magnesium Total Bilirubin 1.9 H AST 37 H ALT 22 Alkaline Phosphatase 357 H Ammonia < 8.7 L Total Protein 5.4 L Albumin 2.8 L TSH 1.92 Blood Type Antibody Screen 08/09/18 08/09/18 03:57 05:10 WBC RBC Hgb Hct MCV MCH MCHC RDW Plt Count Seg Neutrophils % Lymphocytes % Monocytes % Eosinophils % Basophils % Absolute Neutrophils Absolute Lymphocytes Absolute Monocytes Absolute Eosinophils Absolute Basophils Carbonic Acid 1.49 H HCO3/H2CO3 Ratio 23:1 ABG pH 7.47 H ABG pCO2 49.4 H ABG pO2 96.8 ABG HCO3 35.5 H ABG O2 Saturation 97.7 ABG Base Excess 10.7 FiO2 35% Sodium Potassium Chloride Carbon Dioxide Anion Gap BUN Creatinine Est GFR ( Amer) Est GFR (Non-Af Amer) Glucose Calcium Magnesium 1.9 Total Bilirubin AST ALT Alkaline Phosphatase Ammonia Total Protein Albumin TSH Blood Type Antibody Screen 08/08/18 08/08/18 08/08/18 07:10 07:10 10:50 Troponin I < 0.012 < 0.012 NT-Pro-B Natriuret Pep 687 Impressions: Chest X-Ray 08/09/18 06:00 IMPRESSION: Improved aeration of the lung bases bilaterally copyright 2011 [employer]- All Rights Reserved Status: Imported from PACS Assessment and Plan - Diagnosis (1) Respiratory failure with hypoxia and hypercapnia Qualifiers: Chronicity: acute on chronic Qualified Code(s): J96.21 - Acute and chronic respiratory failure with hypoxia; J96.22 - Acute and chronic respiratory failure with hypercapnia Is this a current diagnosis for this admission?: Yes Plan: Secondary to COPD and pulmonary edema. CXR shows improving pulmonary edema, although patient has no history of CHF (BNP 687) CXR today shows improved aeration of right lung, LLL shows opacification Downgrade IV Bumex from twice daily to daily dosing Provided supplemental oxygen via BiPAP as needed to maintain SPO2>89%, will wean to nasal cannula as tolerated Scheduled and as needed nebulizer treatments Scheduled steroids Repeat ABG and CXR in a.m. (2) Pulmonary edema Qualifiers: Chronicity: acute Qualified Code(s): J81.0 - Acute pulmonary edema Is this a current diagnosis for this admission?: Yes Plan: Plan as above (3) Altered mental status Qualifiers: Altered mental status type: disorientation Qualified Code(s): R41.0 - Disorientation, unspecified Is this a current diagnosis for this admission?: Yes Plan: Likely secondary to hypoxia and hypercapnia, will hopefully resolve once patient's respiratory status improves PRN Haldol and as needed Ativan for agitation BuSpar twice daily for anxiety Risperidone twice daily for mood stabilization Dilaudid as needed for pain (4) COPD (chronic obstructive pulmonary disease) Qualifiers: COPD type: COPD with acute exacerbation Qualified Code(s): J44.1 - Chronic obstructive pulmonary disease with (acute) exacerbation Is this a current diagnosis for this admission?: Yes Plan: Long-standing history of COPD Management as above (5) HIV (human immunodeficiency virus infection) Qualifiers: HIV symptom status: unspecified Qualified Code(s): B20 - Human immunodeficiency virus [HIV] disease Is this a current diagnosis for this admission?: Yes Plan: Continue home antiviral therapy regimen once medications have been verified by pharmacy CD4 count pending (6) Metastatic breast cancer Is this a current diagnosis for this admission?: Yes Plan: Followed by Dr. Narayanan Consulted oncology for continuity of care and management assistance According to her consult note from previous admission, treatment options for this patient include supportive care or palliative/hospice (7) Polycythemia Is this a current diagnosis for this admission?: Yes Plan: Improved Hgb >8.[address] 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 Narayanan's office Transfuse PRBCs for Hgb<8.0 Transfuse platelets for < 10. Aim for platelet count of 10,000 (as long as patient is not bleeding). (8) Full code status Is this a current diagnosis for this admission?: Yes Plan: Confirmed with sister (medical power of cardiac nurse practitioner) that the patient is a full code Discussed patient's case with Dr. Narayanan, she confirms that she has had multiple discussions with the patient regarding her CODE STATUS. Despite her grim prognosis, the patient wishes to remain a full code. - Time Time Spent with patient: 15-24 minutes Medications reviewed and adjusted accordingly: Yes Anticipated discharge: Home - Inpatient Certification Based on my medical assessment, after consideration of the patient's comorbidities, presenting symptoms, or acuity I expect that the services needed warrant INPATIENT care.: Yes I certify that my determination is in accordance with my understanding of Medicare's requirements for reasonable and necessary INPATIENT services [42 CFR 412.3e].: Yes Medical Necessity: Need Close Monitoring Due to Risk of Patient Decompensation, Need For Continuous Telemetry Monitoring, Risk of Complication if Not Cared For in Hospital - Plan Summary Plan Summary: WILL REMAIN IN ICU. KEEP ON BIPAP. PRN ATIVAN AND HALDOL. DOWNGRADE BUMEX FROM BID TO DAILY
[2018-08-09] MEDS ORDERED: PHARMACY COMMUNICATION ORDER MC NR ×2 (09:30→16:15)
[2018-08-09] MEDS ORDERED: BUMETANIDE INJ/PF 1 MG/4 ML SDV IV SCH ×2 (10:00)
[2018-08-09] MEDS ORDERED: MAGNESIUM SULFATE/D5W 1 GM/100 ML RTUPB IV ONE (10:00)
[2018-08-09] MEDS: RISPERIDONE 0.25 MG TABLET PO SCH (10:23)
[2018-08-09] MEDS: PANTOPRAZOLE SODIUM 40 MG VIAL IV SCH (10:45)
[2018-08-09] MEDS ORDERED: POTASSI CL 20 MEQ/50 ML RIDER 20 MEQ/50 ML RTUPB IV ONE (11:00)
[2018-08-09] MEDS ORDERED: ROCURONIUM BROMIDE INJ 50 MG/5 ML VIAL IV ONE (12:02)
[2018-08-09] MEDS ORDERED: LORAZEPAM INJ 2 MG/1 ML VIAL IV PRN ×2 (14:20→15:08)
[2018-08-09] MEDS ORDERED: PROPOFOL 1,000 MG/100 ML INFUS..BTL IV ONE (16:10)
[2018-08-09 16:49] LABS: HEMATOCRIT 23.4 % (36.0-47.0); MEAN CORPUSCULAR HEMOGLOBIN 31.8 pg (27.0-33.4); MEAN CORPUSCULAR HGB CONC 34.3 g/dL (32.0-36.0); RED BLOOD COUNT 2.53 10^6/uL (3.72-5.28); RED CELL DISTRIBUTION WIDTH 18.2 % (11.5-14.0)
--- NOTE | 2018-08-09 17:20 | Progress Note ---
Provider Note Provider Note: Notified by nursing staff that patient had coughed up a large blood clot and she was having difficulty maintaining her airway. Upon assessment, the patient had dried blood on her lips, blood in her oropharynx, was able to suction out a moderate amount of bright red blood from her mouth. Concerned that the patient may not be able to maintain her airway, consulted with the patient's sister (medical POA) about the need for intubation. Discussed the risks and benefits of intubation, particularly in light of the patient's advanced lung disease. Initially, the sister wanted to wait until tomorrow morning to intubate the patient. I explained to her that the patient's condition could potentially rapidly deteriorate and the decision to intubate/DO NOT INTUBATE should be made at this time. The sister stated that she wanted the patient to be intubated. Anesthesia was called to the bedside and the patient was successfully intubated at 1645. Unfortunately, the anesthesiologist stated he visualized an active ?esophageal bleed during the procedure. Surgery was consulted who recommended transfer to a tertiary facility. The hospital only has 2 units of platelets available and if her bleeding does not stop after 2 units the patient could potentially decompensate very quickly. Will attempt to transfer the patient to [facility].
[2018-08-09 17:26] LABS: MEAN CORPUSCULAR VOLUME 93 fl (80-97)
[2018-08-09 17:28] LABS: WHITE BLOOD COUNT 4.6 10^3/uL (4.0-10.5)
[2018-08-09 17:31] LABS: PLATELET COUNT 13 10^3/uL (150-450)
--- NOTE | 2018-08-09 17:35 | RADIOLOGY REPORT (SQ) ---
EXAM DESCRIPTION: CHEST SINGLE VIEW COMPLETED DATE/TIME: 08/09/2018 5:25 pm REASON FOR STUDY: intubation COMPARISON: Earlier exam same date TECHNIQUE: Single frontal radiographic view of the chest acquired. NUMBER OF VIEWS: One view. LIMITATIONS: None. FINDINGS: LUNGS AND PLEURA: Increasing consolidation in the left lung. Small bilateral pleural effu sions. No pneumothorax. Persistent interstitial prominence. MEDIASTINUM AND HILAR STRUCTURES: Stable. HEART AND VASCULAR STRUCTURES: Stable. BONES: No acute findings. Scattered lytic lesions. HARDWARE: Endotracheal tube tip overlies the mid trachea approximately 6 cm above the level of the [place]. OTHER: No other significant finding. IMPRESSION: Endotracheal tube tip overlies the mid trachea approximately 6 cm above the level of the [place].Increasing consolidation in the left lung. Small bilateral pleural effusions. TECHNICAL DOCUMENTATION: JOB ID: [id number] [employer]- All Rights Reserved Reading location - IP/workstation name: [email or web address]
--- NOTE | 2018-08-09 17:39 | PDOC TRANSFER SUMMARY ---
Addendum entered and electronically signed by EARNEST DUNCAN NP 08/10/18 08:18: General Admission Date/PCP: 08/08/18 09:15 HINA LAW MD Admission Date: 08/08/18 Transfer Date: 08/09/18 Accepting Facility: [facility] Accepting Physician: Dr. Bhagat Resuscitation Status: Full Code - Transfer Diagnosis (1) Respiratory failure with hypoxia and hypercapnia Is this a current diagnosis for this admission?: Yes Diagnosis Summary: CRITICAL CARE TIME SPENT WITH THIS PATIENT: 60 MINUTES (2) Pulmonary edema Is this a current diagnosis for this admission?: Yes (3) Altered mental status Is this a current diagnosis for this admission?: Yes (4) COPD (chronic obstructive pulmonary disease) Is this a current diagnosis for this admission?: Yes (5) HIV (human immunodeficiency virus infection) Is this a current diagnosis for this admission?: Yes (6) Metastatic breast cancer Is this a current diagnosis for this admission?: Yes (7) Polycythemia Is this a current diagnosis for this admission?: Yes (8) Full code status Is this a current diagnosis for this admission?: Yes - Transfer Medications Home Medications: Albuterol Sulfate [Proair HFA Inhalation Aerosol 8.5 gm MDI] 2 puff IH Q2HP PRN 08/08/18 Albuterol Sulfate [Ventolin 0.083% Neb 2.5 mg/3 mL Ampul] 3 ml NEB Q4HP PRN 08/08/18 Loratadine [Claritin] 10 mg PO DAILY 08/08/18 Omeprazole 40 mg PO BIDACBS 08/08/18 Oxycodone HCl 30 mg PO Q3HP PRN 08/08/18 Oxycodone HCl [Oxycontin] 40 mg PO Q8 08/08/18 Pregabalin [Lyrica] 150 mg PO Q6 08/08/18 Tamoxifen Citrate [Nolvadex 10 mg Tablet] 10 mg PO BID 08/08/18 - Allergies Allergies/Adverse Reactions: latex Allergy (Severe, Verified 08/06/18 17:14) blisters,rash morphine [Morphine] Allergy (Severe, Verified 08/06/18 17:14) short of breath Sulfa (Sulfonamide Antibiotics) Allergy (Intermediate, Verified 08/06/18 17:14) rash adhesive Allergy (Verified 08/06/18 17:14) Plastic tape Adverse Reaction (Uncoded 08/06/18 17:14) Blisters Original Note: General Admission Date/PCP: 08/08/18 09:15 HINA LAW MD Admission Date: 08/08/18 Transfer Date: 08/09/18 Accepting Facility: [facility] Accepting Physician: Dr. Bhagat Resuscitation Status: Full Code - Transfer Diagnosis (1) Respiratory failure with hypoxia and hypercapnia Is this a current diagnosis for this admission?: Yes (2) Pulmonary edema Is this a current diagnosis for this admission?: Yes (3) Altered mental status Is this a current diagnosis for this admission?: Yes (4) COPD (chronic obstructive pulmonary disease) Is this a current diagnosis for this admission?: Yes (5) HIV (human immunodeficiency virus infection) Is this a current diagnosis for this admission?: Yes (6) Metastatic breast cancer Is this a current diagnosis for this admission?: Yes (7) Polycythemia Is this a current diagnosis for this admission?: Yes (8) Full code status Is this a current diagnosis for this admission?: Yes - Transfer Medications Home Medications: Albuterol Sulfate [Proair HFA Inhalation Aerosol 8.5 gm MDI] 2 puff IH Q2HP PRN 08/08/18 Albuterol Sulfate [Ventolin 0.083% Neb 2.5 mg/3 mL Ampul] 3 ml NEB Q4HP PRN 08/08/18 Loratadine [Claritin] 10 mg PO DAILY 08/08/18 Omeprazole 40 mg PO BIDACBS 08/08/18 Oxycodone HCl 30 mg PO Q3HP PRN 08/08/18 Oxycodone HCl [Oxycontin] 40 mg PO Q8 08/08/18 Pregabalin [Lyrica] 150 mg PO Q6 08/08/18 Tamoxifen Citrate [Nolvadex 10 mg Tablet] 10 mg PO BID 08/08/18 Transfer Medications: Current Medications Acetaminophen (Tylenol 650 Mg Supp) 650 mg NE Q4HP PRN PRN Reason: FOR PAIN OR TEMP Stop: 09/07/18 09:39 Bumetanide (Bumex Inj/Pf 1 Mg/4 Ml Sdv) 1 mg IV DAILY TEA Stop: 09/08/18 09:59 Last Admin: 08/09/18 10:46 Dose: 1 mg Documented by: Buspirone HCl (Buspar 10 Mg Tablet) 5 mg PO Q12A TEA Stop: 09/07/18 16:59 Last Admin: 08/09/18 05:33 Dose: Not Given Documented by: Dextrose (Dextrose Inj 50% Syringe (25 Gm/50 Ml)) 12.5 gm IV PRN PRN; Protocol PRN Reason: FOR BG 50-69 IN ALERT PATIENT Stop: 09/07/18 09:39 Dextrose (Dextrose Inj 50% Syringe (25 Gm/50 Ml)) 25 gm IV PRN PRN; Protocol PRN Reason: See Label Comments Stop: 09/07/18 09:39 Glucagon (Glucagen Inj 1 Mg Vial) 1 mg SUBCUT PRN PRN; Protocol PRN Reason: Evaluate for BG < 70 Stop: 09/07/18 09:39 Glucose (Glutose 40% Gel 15 Gm Tube) 15 gm PO PRN PRN; Protocol PRN Reason: For BG 50-69 in Alert Patient Stop: 09/07/18 09:39 Glucose (Glutose 40% Gel 15 Gm Tube) 30 gm PO PRN PRN; Protocol PRN Reason: FOR BG < 50 IN ALERT PATIENT Stop: 09/07/18 09:39 Haloperidol Lactate (Haldol 5 Mg/Ml Inj 1 Ml Vial) 5 mg IV Q6HP PRN PRN Reason: RESTLESSNESS/AGITATION Stop: 09/07/18 12:31 Last Admin: 08/08/18 13:51 Dose: 5 mg Documented by: Hydromorphone HCl (Dilaudid Inj/Pf 2 Mg/Ml Ampule) 1 mg IV Q4HP PRN PRN Reason: PAIN Stop: 08/15/18 21:04 Last Admin: 08/09/18 15:24 Dose: 1 mg Documented by: Lorazepam (Ativan Inj 2 Mg/1 Ml Vial) 4 mg IV Q2HP PRN PRN Reason: AGITATION Stop: 08/16/18 14:19 Ondansetron HCl (Zofran Inj/Pf 4 Mg/2 Ml Sdv) 4 mg IV Q6HP PRN PRN Reason: FOR NAUSEA/VOMITING Stop: 09/07/18 09:53 Pantoprazole Sodium (Protonix Iv Inj 40 Mg Vial) 40 mg IV Q12 [facility] Stop: 08/11/18 09:59 Last Admin: 08/09/18 10:45 Dose: 40 mg Documented by: Pharmacy Profile Note (Medication Communication Order) 1 each MC .NOTICE NR Stop: 09/08/18 09:29 Pharmacy Profile Note (Medication Communication Order) 1 each MC .NOTICE NR Stop: 09/08/18 16:14 Quetiapine Fumarate (Seroquel 25 Mg Tablet) 25 mg PO QHS TEA Stop: 09/07/18 21:59 Last Admin: 08/09/18 00:39 Dose: Not Given Documented by: Risperidone (Risperdal 0.25 Mg Tablet) 0.25 mg PO BID TEA Stop: 09/07/18 17:59 Last Admin: 08/09/18 10:23 Dose: Not Given Documented by: - Allergies Allergies/Adverse Reactions: latex Allergy (Severe, Verified 08/06/18 17:14) blisters,rash morphine [Morphine] Allergy (Severe, Verified 08/06/18 17:14) short of breath Sulfa (Sulfonamide Antibiotics) Allergy (Intermediate, Verified 08/06/18 17:14) rash adhesive Allergy (Verified 08/06/18 17:14) Plastic tape Adverse Reaction (Uncoded 08/06/18 17:14) Blisters Hospital Course Hospital Course: H&P: JEAN CARLOS ALVARENGA is a 52 year old female with a PMH of metastatic breast cancer, polycythemia, HIV/AIDS, COPD on 5 L O2. She presents to [facility] for shortness of breath. She normally sleeps with her nasal cannula on and, according to friend, it fell off in the middle of the night. She does not sleep with CPAP but is in the process of getting established with pulmonary medicine to obtain CPAP at bedtime. Boyfriend states that she appeared confused this morning after being found with her oxygen off, which is what prompted him to call EMS. SPO2 on scene was 80% on 4 L nasal cannula. Upon arrival to the emergency department, CXR reveals bilateral pulmonary edema. Laboratory studies reveal anemia (Hgb 7.6, HCT 22), thrombocytopenia (p latelets 4), hyponatremia (Na 132), ABG revealed chronic hypercapnic respiratory acidosis with metabolic compensation, hypoxia. Other laboratory studies relatively benign, including cardiac enzymes. The patient was treated with an albuterol and Atrovent nebulizer treatment. She was admitted to the hospitalist service for acute hypoxic respiratory failure. Upon assessment, the patient is resting in bed on BiPAP. She is very agitated and fidgeting around in the bed, attempting to remove her BiPAP mask. The patient is able to speak clearly but does not answer questions appropriately and she must pause in between sentences to catch her breath. Lung sounds are clear, diminished in the bases. Finger clubbing is present, no evidence of central or peripheral cyanosis. At one point, the patient was successful at removing her BiPAP mask and her SPO2 dropped to 76%. Administered 1 dose of Bumex while patient was in the emergency department. Plan to admit to ICU due to patient's tenuous respiratory status and need for multiple blood products. HOSPITAL COURSE: 52 y.o. F with a PMH of metastatic breast cancer, polycythemia, HIV/AIDS, COPD on 5 L O2. She was admitted to the hospitalist service for acute hypoxic respiratory failure stemming from pulmonary edema. For her pulmonary edema the patient was treated with Bumex BID. Her CXR this morning showed improved aeration in the right lung but interstitial edema still present L>R. Overnight, the patient was transfused 2 units of PRBCs and 3 units of platelets. On hospital day #2 her Hgb increased from 7.6-8.1. Her platelet count increased from 4,000 to 19,000. The patient seems to be tolerating her BiPAP, ABG this morning demonstrated mild hypercapnia, CO2 had improved as well as her hypoxia pO2 was 96. Attempted to wean patient from BiPAP to nasal cannula, but her SPO2 dropped to low 80s within minutes. The patient was placed back on BiPAP. Plan for NG tube insertion to administer HAART medications as well as antipsychotics and initiate early enteral feeding. Within hours of a failed attempt at NG placement, nursing staff reported that patient had coughed up a large blood clot and she was having difficulty maintaining her airway. Upon assessment, the patient had dried blood on her lips, blood in her oropharynx, was able to suction out a moderate amount of bright red blood from her mouth. Concerned that the patient may not be able to maintain her airway, consulted with the patient's sister (medical POA) about the need for intubation. Discussed the risks and benefits of intubation, particularly in light of the patient's advanced COPD. Initially, the sister wanted to wait until tomorrow morning to intubate the patient. I explained to her that the patient's condition could rapidly deteriorate and the decision to intubate/DO NOT INTUBATE should be made at this time. The sister stated that she wanted the patient to be intubated. Anesthesia was called to the bedside and the patient was successfully intubated at 1645. Unfortunately, the anesthesiologist stated he visualized an active ?esophageal? bleed during the procedure. Surgery was consulted who recommended transfer to a tertiary facility. [facility] only has 2 units of platelets available and if her bleeding does n ot stop after 2 units the patient could potentially decompensate very quickly. Dr. Bhagat at [facility] has graciously accepted this patient. Plan to transfer patient to [facility] via [facility]. Medical POA: Cynthia Alvarenga (sister) [phone] Physical Exam Vital Signs: Temp Pulse Resp BP Pulse Ox 97.7 F 110 H 33 H 110/70 94 08/09/18 14:00 08/09/18 14:00 08/09/18 14:00 08/09/18 14:00 08/09/18 16:00 Intake & Output 08/08/18 08/09/18 08/10/18 06:59 06:59 06:59 Intake Total 1573 47 Output Total 3460 310 Balance -1887 -263 Weight 75.9 kg General appearance: PRESENT: severe distress Eye exam: PRESENT: conjunctiva pale, PERRLA Mouth exam: PRESENT: other - Blood in oropharynx Teeth exam: PRESENT: poor dentation Neck exam: ABSENT: JVD Respiratory exam: PRESENT: rhonchi - Left more than right, symmetrical Cardiovascular exam: PRESENT: tachycardia Pulses: PRESENT: normal radial pulses, normal dorsalis pedis pul Vascular exam: PRESENT: pallor GI/Abdominal exam: PRESENT: soft. ABSENT: distended, tenderness Rectal exam: PRESENT: deferred Extremities exam: PRESENT: pedal edema Musculoskeletal exam: ABSENT: ambulatory Neurological exam: ABSENT: oriented to person, oriented to place, oriented to time, oriented to situation Psychiatric exam: PRESENT: agitated Results Laboratory Results: 08/09/18 03:57 08/08/18 08/08/18 08/09/18 10:50 22:00 03:57 WBC 4.2 3.9 L RBC 2.58 L 2.59 L Hgb 8.1 L 8.1 L Hct 23.5 L 23.0 L MCV 91 D 89 MCH 31.6 31.5 MCHC 34.7 35.3 RDW 17.8 H 18.0 H Plt Count 17 L* D 19 L* Seg Neutrophils % Not Reportable Lymphocytes % Not Reportable Monocytes % Not Reportable Eosinophils % Not Reportable Basophils % Not Reportable Absolute Neutrophils Not Reportable Absolute Lymphocytes Not Reportable Absolute Monocytes Not Reportable Absolute Eosinophils Not Reportable Absolute Basophils Not Reportable Carbonic Acid HCO3/H2CO3 Ratio ABG pH ABG pCO2 ABG pO2 ABG HCO3 ABG O2 Saturation ABG Base Excess FiO2 Sodium Potassium Chloride Carbon Dioxide Anion Gap BUN Creatinine Est GFR ( Amer) Est GFR (Non-Af Amer) Glucose Calcium Magnesium Total Bilirubin AST ALT Alkaline Phosphatase Ammonia Total Protein Albumin TSH Blood Type O POSITIVE Antibody Screen NEGATIVE 08/09/18 08/09/18 08/09/18 03:57 03:57 03:57 WBC RBC Hgb Hct MCV MCH MCHC RDW Plt Count Seg Neutrophils % Lymphocytes % Monocytes % Eosinophils % Basophils % Absolute Neutrophils Absolute Lymphocytes Absolute Monocytes Absolute Eosinophils Absolute Basophils Carbonic Acid HCO3/H2CO3 Ratio ABG pH ABG pCO2 ABG pO2 ABG HCO3 ABG O2 Saturation ABG Base Excess FiO2 Sodium 138.7 Potassium 3.0 L* D Chloride 97 L Carbon Dioxide 37 H Anion Gap 5 BUN 18 Creatinine 0.58 Est GFR ( Amer) > 60 Est GFR (Non-Af Amer) > 60 Glucose 77 Calcium 8.3 L Magnesium Total Bilirubin 1.9 H AST 37 H ALT 22 Alkaline Phosphatase 357 H Ammonia < 8.7 L Total Protein 5.4 L Albumin 2.8 L TSH 1.92 Blood Type Antibody Screen 08/09/18 08/09/18 03:57 05:10 WBC RBC Hgb Hct MCV MCH MCHC RDW Plt Count Seg Neutrophils % Lymphocytes % Monocytes % Eosinophils % Basophils % Absolute Neutrophils Absolute Lymphocytes Absolute Monocytes Absolute Eosinophils Absolute Basophils Carbonic Acid 1.49 H HCO3/H2CO3 Ratio 23:1 ABG pH 7.47 H ABG pCO2 49.4 H ABG pO2 96.8 ABG HCO3 35.5 H ABG O2 Saturation 97.7 ABG Base Excess 10.7 FiO2 35% Sodium Potassium Chloride Carbon Dioxide Anion Gap BUN Creatinine Est GFR ( Amer) Est GFR (Non-Af Amer) Glucose Calcium Magnesium 1.9 Total Bilirubin AST ALT Alkaline Phosphatase Ammonia Total Protein Albumin TSH Blood Type Antibody Screen 08/08/18 08/08/18 08/08/18 07:10 07:10 10:50 Troponin I < 0.012 < 0.012 NT-Pro-B Natriuret Pep 687 Impressions: Chest X-Ray 08/09/18 06:00 IMPRESSION: Improved aeration of the lung bases bilaterally copyright 2011 [employer]- All Rights Reserved Status: Imported from PACS Plan Time Spent: Greater than 30 Minutes
[2018-08-09] MEDS ORDERED: PROPOFOL 1,000 MG/100 ML INFUS..BTL IV PRN (17:40)
[2018-08-09] MEDS ORDERED: DEXTROSE 40% GEL 15 GM TUBE NG PRN ×2 (17:49)
[2018-08-09] MEDS ORDERED: NORMAL SALINE 1000 ML 1,000 ML IV PRN (17:55)
[2018-08-09] MEDS ORDERED: BUSPIRONE HCL 10 MG TABLET NG SCH (18:00)
[2018-08-09] MEDS ORDERED: RISPERIDONE 0.25 MG TABLET NG SCH (18:00)
[2018-08-09] MEDS ORDERED: NORMAL SALINE 1000 ML 1,000 ML IV ONE (19:00)
[2018-08-09 19:05] VITALS: BP 115/60
[2018-08-09 19:44] LABS: ARTERIAL BLOOD BASE EXCESS 10.5 mmol/L; ARTERIAL BLOOD H2CO3 1.71 mmol/L (1.05-1.35); ARTERIAL BLOOD HCO3 36.1 mmol/L (20-24); ARTERIAL BLOOD O2 SATURATION 94.6 % (94-98); ARTERIAL BLOOD PCO2 56.9 mmHg (35-45); ARTERIAL BLOOD PH 7.42 (7.35-7.45); ARTERIAL BLOOD TOTAL CO2 37.8 mmol/L (21-25)
[2018-08-09 19:46] LABS: ARTERIAL BLOOD FIO2 50%
[2018-08-09] MEDS ORDERED: QUETIAPINE FUMARATE 25 MG TABLET NG SCH (22:00)
[2018-08-11 03:37] LABS: % CD 4 POS LYMPH 26.3 % (30.8-58.5); ABSOLUTE CD 4 HELPER 237 /uL (359-1519); BANDS 1 % (Not Estab.); CD BASOPHILS 0 % (Not Estab.); CD EOSINOPHILS 0 % (Not Estab.); CD MONOCYTES 10 % (Not Estab.); CD NEUTROPHILS 61 % (Not Estab.); IMMATURE CELLS Note (.); LYMPHS(ABSOLUTE) 0.9 x10E3/uL (0.7-3.1); MCH 31.9 pg (26.6-33.0); MCHC 34.9 g/dL (31.5-35.7); MCV 91 fL (79-97); METAMYELOCYTES 4 % (0 - 0); MONOCYTES(ABSOLUTE) 0.4 x10E3/uL (0.1-0.9); NEUTROPHILS(ABSOLUTE) 2.4 x10E3/uL (1.4-7.0); RDW 18.1 % (12.3-15.4)
[2018-08-11 07:41] LABS: PLATELETS 20 x10E3/uL (150-379); RBC 2.51 x10E6/uL (3.77-5.28); WBC 3.9 x10E3/uL (3.4-10.8)
--- NOTE | 2018-08-11 13:18 | PDOC CONSULTATION ---
Consultation Consult Date: 08/09/18 Attending physician:: EARNEST DUNCAN Consult reason:: Respiratory failure History of Present Illness Admission Date/PCP: 08/08/18 09:15 HINA LAW MD History of Present Illness: JEAN CARLOS FRIAS is a 52 year old female, who medical problems including metastatic breast cancer HIV COPD running with increasing shortness of breath and SaO2 is in the low 80% level despite noninvasive positive pressure ventilation she was subsequently intubated and is now currently in the ICU intubated and sedated Past Medical History Cardiac Medical History: Denies: Congestive Heart Failure, Coronary Artery Disease, Myocardial Infa rction, Hypertension Pulmonary Medical History: Reports: Asthma, Chronic Obstructive Pulmonary Disease (COPD), Pneumonia Denies: Bronchitis Neurological Medical History: Denies: Seizures Malignancy Medical History: Reports: Breast Cancer - Stage IV, mets to L5 and R & L posterior parietal skull. GI Medical History: Reports: Gastroesophageal Reflux Disease Denies: Cirrhosis Musculoskeltal Medical History: Reports: Arthritis - generalized Psychiatric Medical History: Reports: Depression Hematology: Reports: Anemia, Bleeding Tendencies Past Surgical History Past Surgical History: Reports: Cholecystectomy, Orthopedic Surgery - Left patellar reconstruction, Tonsillectomy, Tubal Ligation Denies: Hysterectomy Social History Information Source: [facility] Records Lives with: Alone Smoking Status: Former Smoker Cigarettes Packs Per Day: 1 Last Time Smoked: Friday Frequency of Alcohol Use: None Hx Recreational Drug Use: No Drugs: None Hx Prescription Drug Abuse: No - Advance Directive Resuscitation Status: Full Code Family History Parental Family History Reviewed: No Children Family History Reviewed: No Sibling(s) Family History Reviewed.: No Medication/Allergy Home Medications: Albuterol Sulfate [Proair HFA Inhalation Aerosol 8.5 gm MDI] 2 puff IH Q2HP PRN 08/08/18 Albuterol Sulfate [Ventolin 0.083% Neb 2.5 mg/3 mL Ampul] 3 ml NEB Q4HP PRN 08/08/18 Loratadine [Claritin] 10 mg PO DAILY 08/08/18 Omeprazole 40 mg PO BIDACBS 08/08/18 Oxycodone HCl 30 mg PO Q3HP PRN 08/08/18 Oxycodone HCl [Oxycontin] 40 mg PO Q8 08/08/18 Pregabalin [Lyrica] 150 mg PO Q6 08/08/18 Tamoxifen Citrate [Nolvadex 10 mg Tablet] 10 mg PO BID 08/08/18 Allergies/Adverse Reactions: latex Allergy (Severe, Verified 08/06/18 17:14) blisters,rash morphine [Morphine] Allergy (Severe, Verified 08/06/18 17:14) short of breath Sulfa (Sulfonamide Antibiotics) Allergy (Intermediate, Verified 08/06/18 17:14) rash adhesive Allergy (Verified 08/06/18 17:14) Plastic tape Adverse Reaction (Uncoded 08/06/18 17:14) Blisters Review of Systems ROS unobtainable: Due to endotracheal tube, Due to mental status Physical Exam Vital Signs: Temp Pulse Resp BP Pulse Ox 97.5 F 110 H 32 H 113/69 100 08/09/18 10:00 08/09/18 10:00 08/09/18 10:00 08/09/18 10:00 08/09/18 10:00 Intake & Output 08/08/18 08/09/18 08/10/18 06:59 06:59 06:59 Intake Total 1573 47 Output Total 3460 175 Balance -1887 -128 Weight 75.9 kg General appearance: PRESENT: no acute distress, disheveled, well-developed, well-nourished. ABSENT: cooperative Head exam: PRESENT: atraumatic, normocephalic Eye exam: PRESENT: conjunctiva pale. ABSENT: EOMI, nystagmus, periorbital swelling Mouth exam: PRESENT: dry mucosa, neck supple, tongue midline, other - ET tube in place Neck exam: ABSENT: carotid bruit, full ROM, JVD, lymphadenopathy, meningismus, tenderness, thyromegaly, tracheal deviation, tracheostomy, other Respiratory exam: PRESENT: decreased breath sounds, prolonged expiratory phas, rales, rhonchi, unlabored. ABSENT: retraction, stridor Cardiovascular exam: PRESENT: RRR, +S1, +S2 Pulses: PRESENT: normal radial pulses GI/Abdominal exam: PRESENT: soft Gentrourinary exam: PRESENT: indwelling catheter Extremities exam: ABSENT: calf tenderness, clubbing, full ROM, joint swelling Musculoskeletal exam: ABSENT: ambulatory, deformity, dislocation, full ROM Neurological exam: ABSENT: awake Skin exam: PRESENT: dry, warm Results Laboratory Results: 08/09/18 03:57 08/09/18 03:57 0308/08/18 08/09/18 10:50 22:00 03:57 WBC 4.2 3.9 L RBC 2.58 L 2.59 L Hgb 8.1 L 8.1 L Hct 23.5 L 23.0 L MCV 91 D 89 MCH 31.6 31.5 MCHC 34.7 35.3 RDW 17.8 H 18.0 H Plt Count 17 L* D 19 L* Seg Neutrophils % Not Reportable Lymphocytes % Not Reportable Monocytes % Not Reportable Eosinophils % Not Reportable Basophils % Not Reportable Absolute Neutrophils Not Reportable Absolute Lymphocytes Not Reportable Absolute Monocytes Not Reportable Absolute Eosinophils Not Reportable Absolute Basophils Not Reportable Carbonic Acid HCO3/H2CO3 Ratio ABG pH ABG pCO2 ABG pO2 ABG HCO3 ABG O2 Saturation ABG Base Excess FiO2 Sodium Potassium Chloride Carbon Dioxide Anion Gap BUN Creatinine Est GFR ( Amer) Est GFR (Non-Af Amer) Glucose Calcium Magnesium Total Bilirubin AST ALT Alkaline Phosphatase Ammonia Total Protein Albumin TSH Blood Type O POSITIVE Antibody Screen NEGATIVE 08/09/18 08/09/18 08/09/18 03:57 03:57 03:57 WBC RBC Hgb Hct MCV MCH MCHC RDW Plt Count Seg Neutrophils % Lymphocytes % Monocytes % Eosinophils % Basophils % Absolute Neutrophils Absolute Lymphocytes Absolute Monocytes Absolute Eosinophils Absolute Basophils Carbonic Acid HCO3/H2CO3 Ratio ABG pH ABG pCO2 ABG pO2 ABG HCO3 ABG O2 Saturation ABG Base Excess FiO2 Sodium 138.7 Potassium 3.0 L* D Chloride 97 L Carbon Dioxide 37 H Anion Gap 5 BUN 18 Creatinine 0.58 Est GFR ( Amer) > 60 Est GFR (Non-Af Amer) > 60 Glucose 77 Calcium 8.3 L Magnesium Total Bilirubin 1.9 H AST 37 H ALT 22 Alkaline Phosphatase 357 H Ammonia < 8.7 L Total Protein 5.4 L Albumin 2.8 L TSH 1.92 Blood Type Antibody Screen 08/09/18 08/09/18 03:57 05:10 WBC RBC Hgb Hct MCV MCH MCHC RDW Plt Count Seg Neutrophils % Lymphocytes % Monocytes % Eosinophils % Basophils % Absolute Neutrophils Absolute Lymphocytes Absolute Monocytes Absolute Eosinophils Absolute Basophils Carbonic Acid 1.49 H HCO3/H2CO3 Ratio 23:1 ABG pH 7.47 H ABG pCO2 49.4 H ABG pO2 96.8 ABG HCO3 35.5 H ABG O2 Saturation 97.7 ABG Base Excess 10.7 FiO2 35% Sodium Potassium Chloride Carbon Dioxide Anion Gap BUN Creatinine Est GFR ( Amer) Est GFR (Non-Af Amer) Glucose Calcium Magnesium 1.9 Total Bilirubin AST ALT Alkaline Phosphatase Ammonia Total Protein Albumin TSH Blood Type Antibody Screen 08/08/18 08/08/18 08/08/18 07:10 07:10 10:50 Troponin I < 0.012 < 0.012 NT-Pro-B Natriuret Pep 687 Impressions: Chest X-Ray 08/09/18 06:00 IMPRESSION: Improved aeration of the lung bases bilaterally copyright 2010 [employer]- All Rights Reserved Assessment & Plan - Diagnosis (1) Acute and chronic respiratory failure Qualifiers: Respiratory failure complication: hypoxia and hypercapnia Qualified Co de(s): J96.21 - Acute and chronic respiratory failure with hypoxia; J96.22 - Acute and chronic respiratory failure with hypercapnia Is this a current diagnosis for this admission?: Yes Plan: Pneumonia and bilateral pleural effusions patient immunocompromised (2) HIV (human immunodeficiency virus infection) Qualifiers: HIV symptom status: unspecified Qualified Code(s): B20 - Human immunodeficiency virus [HIV] disease Is this a current diagnosis for this admission?: Yes Plan: Leukopenic anemic and thrombocytopenic (3) Metastatic breast cancer Is this a current diagnosis for this admission?: Yes Plan: As per oncology - Time Total Critical Time (Minutes): 55
== END 2018-08-09 20:40 | disposition short-term general hospital (02) | DRG 208 ==
LOC: ER 06:57 → EH 09:15 → ICU 15:42
PROVIDERS: ADMIT Internal Medicine; ATTEND Internal Medicine
PROC: 30233R1 Transfusion of Nonautologous Platelets into Peripheral Vein, Percutaneous Approach (ICD-10-PCS; 2018-08-08)
PROC: 30233N1 Transfusion of Nonautologous Red Blood Cells into Peripheral Vein, Percutaneous Approach (ICD-10-PCS; 2018-08-08)
PROC: 5A09457 Assistance with Respiratory Ventilation, 24-96 Consecutive Hours, Continuous Positive Airway Pressure (ICD-10-PCS; 2018-08-08)
PROC: 5A1935Z Respiratory Ventilation, Less than 24 Consecutive Hours (ICD-10-PCS; principal; 2018-08-09)
PROC: 0DH673Z Insertion of Infusion Device into Stomach, Via Natural or Artificial Opening (ICD-10-PCS; 2018-08-09)
PROC: 0BH17EZ Insertion of Endotracheal Airway into Trachea, Via Natural or Artificial Opening (ICD-10-PCS; 2018-08-09)
PROC: 30233R1 Transfusion of Nonautologous Platelets into Peripheral Vein, Percutaneous Approach (ICD-10-PCS; 2018-08-09)
DX: J96.02 Acute respiratory failure with hypercapnia (principal); J81.0 Acute pulmonary edema; B20 Human immunodeficiency virus [HIV] disease; J44.1 Chronic obstructive pulmonary disease with (acute) exacerbation; C79.51 Secondary malignant neoplasm of bone; E87.1 Hypo-osmolality and hyponatremia; R04.2 Hemoptysis; K22.8 Other specified diseases of esophagus; J96.01 Acute respiratory failure with hypoxia; C50.919 Malignant neoplasm of unspecified site of unspecified female breast; K21.9 Gastro-esophageal reflux disease without esophagitis; D75.1 Secondary polycythemia; D69.59 Other secondary thrombocytopenia; M19.90 Unspecified osteoarthritis, unspecified site; F32.9 Major depressive disorder, single episode, unspecified; Z99.81 Dependence on supplemental oxygen; Z79.2 Long term (current) use of antibiotics; Z79.891 Long term (current) use of opiate analgesic; Z79.51 Long term (current) use of inhaled steroids; Z79.899 Other long term (current) drug therapy; Z91.040 Latex allergy status; Z88.2 Allergy status to sulfonamides; Z91.048 Other nonmedicinal substance allergy status; Z88.6 Allergy status to analgesic agent; Z87.891 Personal history of nicotine dependence; Z78.1 Physical restraint status
CPT/HCPCS: 31500; 36415; 36430; 71045; 80053; 82140; 82803; 83735; 83880; 84443; 84484; 85025; 85027; 85610; 86361; 86850; 86900; 86901; 86920; 93005; 93010; 94002; 94640; 94660; 96374; 99291; J1170; J1630; J2060; J2704; J2930; J3475; J3480; J3490; J7030; J7050; J7620; P9016; P9035; S0164

== ENCOUNTER 2018-08-12 22:13 | Emergency (ER) | payer MEDICAID ==
[2018-08-12 23:41] LABS: INTERNATIONAL RATION (INR) 1.05; PARTIAL THROMBOPLASTIN TIME 32.7 SEC (23.5-35.8); PROTHROMBIN TIME 14.2 SEC (11.4-15.4)
[2018-08-12 23:43] LABS: MEAN CORPUSCULAR HEMOGLOBIN 31.4 pg (27.0-33.4); MEAN CORPUSCULAR HGB CONC 34.4 g/dL (32.0-36.0); MEAN CORPUSCULAR VOLUME 91 fl (80-97); RED BLOOD COUNT 2.29 10^6/uL (3.72-5.28); RED CELL DISTRIBUTION WIDTH 17.3 % (11.5-14.0)
[2018-08-12 23:48] LABS: ALANINE AMINOTRANSFERASE 31 U/L (9-52); ALBUMIN 2.9 g/dL (3.5-5.0); ALKALINE PHOSPHATASE 370 U/L (38-126); ANION GAP 8 (5-19); ASPARTATE AMINO TRANSFERASE 38 U/L (14-36); BILIRUBIN,DIRECT 0.5 mg/dL (0.0-0.4); BILIRUBIN,TOTAL 1.2 mg/dL (0.2-1.3); BLOOD UREA NITROGEN 25 mg/dL (7-20); CALCIUM 8.9 mg/dL (8.4-10.2); CARBON DIOXIDE 27 mmol/L (22-30); CHLORIDE 110 mmol/L (98-107); GLUCOSE 89 mg/dL (75-110); POTASSIUM 3.4 mmol/L (3.6-5.0); SODIUM 144.6 mmol/L (137-145); TOTAL PROTEIN 5.6 g/dL (6.3-8.2)
[2018-08-12 23:58] LABS: PLATELET COUNT 32 10^3/uL (150-450)
[2018-08-13 00:06] LABS: ABSOLUTE LYMPHOCYTES# (MANUAL) 0.7 10^3/uL (0.5-4.7); ABSOLUTE MONOCYTES # (MANUAL) 0.3 10^3/uL (0.1-1.4); ABSOLUTE NEUTROPHILS# (MANUAL) 3.1 10^3/uL (1.7-8.2); BAND NEUTROPHILS % (MANUAL) 4 % (3-5); BASOPHILS % (MANUAL) 0 % (0-2); EOSINOPHILS % (MANUAL) 1 % (0-6); LYMPHOCYTES % (MANUAL) 16 % (13-45); MONOCYTES % (MANUAL) 7 % (3-13); SEGMENTED NEUTROPHILS % (MAN) 69 % (42-78); TOTAL CELLS COUNTED 100
[2018-08-13 00:09] LABS: ANISOCYTOSIS 2+; PLATELET COMMENT DECREASED; POLYCHROMASIA SLIGHT; WHITE BLOOD COUNT 3.8 10^3/uL (4.0-10.5)
[2018-08-13 00:12] LABS: HEMOGLOBIN 7.2 g/dL (12.0-15.5)
--- NOTE | 2018-08-13 01:44 | ER Document Report ---
ED General - General Chief Complaint: Rectal Bleeding Stated Complaint: RECTAL BLEEDING Time Seen by Provider: 08/12/18 22:50 Primary Care Provider: HINA LAW MD [Primary Care Provider] - Follow up as needed Mode of Arrival: Medic Information source: Patient Notes: This is a 52-year-old female with a history of metastatic breast cancer, COPD (2 L oxygen at home), thrombocytopenia. Patient is brought in by EMS because of bleeding from the nose and rectal bleeding. Patient states that she had just gotten home from [facility] where she is was admitted when the bleeding started. Patient had apparently left AMA from the ICU at [facility]. Currently, there is no active nasal bleeding. TRAVEL OUTSIDE OF THE [place] IN LAST 30 DAYS: No - HPI Onset: Just prior to arrival Onset/Duration: Sudden Quality of pain: No pain Severity: None Pain Level: Denies Associated symptoms: denies: Chest pain, Fever, Shortness of breath Exacerbated by: Denies Relieved by: Denies Similar symptoms previously: Yes Recently seen / treated by doctor: Yes - Related Data Allergies/Adverse Reactions: latex Allergy (Severe, Verified 08/06/18 17:14) blisters,rash morphine [Morphine] Allergy (Severe, Verified 08/06/18 17:14) short of breath Sulfa (Sulfonamide Antibiotics) Allergy (Intermediate, Verified 08/06/18 17:14) rash adhesive Allergy (Verified 08/06/18 17:14) Plastic tape Adverse Reaction (Uncoded 08/06/18 17:14) Blisters Past Medical History - General Information source: Patient - Social History Smoking Status: Current Every Day Smoker Cigarette use (# per day): Yes Chew tobacco use (# tins/day): No - Half pack per day Frequency of alcohol use: None Drug Abuse: None Lives with: Alone Family History: Reviewed & Not Pertinent Patient has suicidal ideation: No Patient has homicidal ideation: No - Past Medical History Cardiac Medical History: Denies: Hx Congestive Heart Failure, Hx Coronary Artery Disease, Hx Heart Attack, Hx Hypertension Pulmonary Medical History: Reports: Hx Asthma, Hx COPD, Hx Pneumonia Denies: Hx Bronchitis Neurological Medical History: Denies: Hx Cerebrovascular Accident, Hx Seizures Renal/ Medical History: Denies: Hx Peritoneal Dialysis Malignancy Medical History: Reports: Hx Breast Cancer - Stage IV, mets to L5 and R & L posterior parietal skull. GI Medical History: Reports: Hx Gastroesophageal Reflux Disease. Denies: Hx Cirrhosis, Hx Ulcer Musculoskeletal Medical History: Reports Hx Arthritis - generalized, Reports Hx Musculoskeletal Deformity, Reports Hx Musculoskeletal Trauma Psychiatric Medical History: Reports: Hx Anxiety, Hx Depression Traumatic Medical History: Reports: Hx Fractures Past Surgical History: Reports: Hx Breast Surgery - Right lumpectomy x2 w/ axillary lymph node diseection., Hx Cholecystectomy, Hx Orthopedic Surgery - Left patellar reconstruction, Hx Tonsillectomy, Hx Tubal Ligation. Denies: Hx Hysterectomy - Immunizations Immunizations up to date: Yes Hx Diphtheria, Pertussis, Tetanus Vaccination: No Hx Pneumococcal Vaccination: 01/26/15 Review of Systems - Review of Systems Constitutional: denies: Chills, Fever EENT: See HPI Cardiovascular: No symptoms reported Respiratory: No symptoms reported Gastrointestinal: See HPI Genitourinary: No symptoms reported Female Genitourinary: No symptoms reported Musculoskeletal: No symptoms reported Skin: No symptoms reported Hematologic/Lymphatic: No symptoms reported Neurological/Psychological: No symptoms reported Physical Exam - Vital signs Vitals: Temp Pulse Ox 98.4 F 99 08/12/18 22:16 08/12/18 22:16 Notes: Physical exam: GENERAL: Patient is alert and oriented x3, no acute distress. She is answering questions without difficulty. There is no active bleeding. HEAD: Atraumatic, normocephalic. EYES: Pupils equal round and reactive to light, extraocular movements intact, sclera anicteric, conjunctiva are normal. ENT: TMs normal, dried blood in nostrils, no active bleeding. NECK: Normal range of motion, supple without obvious mass or JVD. LUNGS: Breath sounds clear to auscultation bilaterally and equal. No wheezes rales or rhonchi. HEART: Regular rate and rhythm without murmurs, rubs or gallops. ABDOMEN/rectal: Patient did have a small amount of melena initially in her diaper. Currently, there is no active bleeding. Soft, normoactive bowel sounds. No tenderness to palpation. No guarding, no rebound. No masses appreciated. EXTREMITIES: Normal range of motion, no pitting or edema. No clubbing or cyanosis. NEUROLOGICAL: Cranial nerves II through XII grossly intact. Normal speech, moving all extremities. PSYCH: Normal mood, normal affect. SKIN: Warm, Dry, normal turgor, no rashes or lesions noted. Course - Re-evaluation Re-evalutation: 08/13/18 04:06 Note: Discussed case with Dr. Law who is the patient's ship unloader. She recommended transfer back to [facility]. We do not have any platelets available at this hospital at this time. I discussed the case with the hospitalist at [facility] and they are willing to readmit the patient. They did report to me that she left AMA earlier this evening. 08/13/18 04:08 I discussed this with the patient and she absolutely refused. Shortly thereafter, the patient demanded to leave here. She is alert and she knows where she is and she is coherent and she has reasonable judgment. While I disagree that she should leave, she appears competent at this time to make that decision herself. She has signed an AMA. - Vital Signs Vital signs: Temp Pulse Resp BP Pulse Ox 98.4 F 87 18 126/65 H 100 08/13/18 02:45 08/13/18 02:45 08/13/18 02:45 08/13/18 02:45 08/13/18 02:45 - Laboratory Result Diagrams: 08/12/18 23:20 08/12/18 23:20 Laboratory results interpreted by me: 08/12/18 08/12/18 23:20 23:20 WBC 3.8 L RBC 2.29 L Hgb 7.2 L Hct 21.0 L RDW 17.3 H Plt Count 32 L Metamyelocytes % 1 H Myelocytes % 1 H Potassium 3.4 L Chloride 110 H BUN 25 H Direct Bilirubin 0.5 H AST 38 H Alkaline Phosphatase 370 H Total Protein 5.6 L Albumin 2.9 L Critical Care Note - Critical Care Note Total time excluding time spent on procedures (mins): 60 Discharge - Discharge Clinical Impression: Thrombocytopenia Condition: Stable Disposition: AGAINST MEDICAL ADVICE Referrals: HINA LAW MD [Primary Care Provider] - Follow up as needed
[2018-08-13 02:55] VITALS: BP 126/65
[2018-08-13 08:41] LABS: METAMYELOCYTES % (MANUAL) 1 % (0); NUCLEATED RED BLOOD CELLS 9 /100 WBC (0)
[2018-08-13 08:43] LABS: MYELOCYTES % (MANUAL) 1 % (0)
== END 2018-08-13 02:59 | disposition left against medical advice (07) ==
LOC: ER 22:13
DX: D69.6 Thrombocytopenia, unspecified (principal); K62.5 Hemorrhage of anus and rectum; R04.0 Epistaxis; J44.9 Chronic obstructive pulmonary disease, unspecified; F17.210 Nicotine dependence, cigarettes, uncomplicated; Z99.81 Dependence on supplemental oxygen; Z85.3 Personal history of malignant neoplasm of breast; Z91.040 Latex allergy status; Z88.5 Allergy status to narcotic agent; Z88.2 Allergy status to sulfonamides; Z91.048 Other nonmedicinal substance allergy status; Z53.20 Procedure and treatment not carried out because of patient's decision for unspecified reasons
CPT/HCPCS: 36415; 80053; 82272; 85025; 85610; 85730; 99291

== ENCOUNTER 2018-08-13 22:05 | Emergency (ER) | payer MEDICAID ==
[2018-08-14 03:19] LABS: HEMATOCRIT 18.4 % (36.0-47.0); INTERNATIONAL RATION (INR) 1.05; MEAN CORPUSCULAR HEMOGLOBIN 31.2 pg (27.0-33.4); MEAN CORPUSCULAR HGB CONC 33.9 g/dL (32.0-36.0); MEAN CORPUSCULAR VOLUME 92 fl (80-97); PROTHROMBIN TIME 14.2 SEC (11.4-15.4); RED BLOOD COUNT 1.99 10^6/uL (3.72-5.28)
[2018-08-14 03:20] LABS: PARTIAL THROMBOPLASTIN TIME 33.8 SEC (23.5-35.8)
[2018-08-14 03:34] LABS: ALBUMIN 2.8 g/dL (3.5-5.0); CHLORIDE 106 mmol/L (98-107); POTASSIUM 3.6 mmol/L (3.6-5.0)
[2018-08-14 03:48] LABS: HEMOGLOBIN 6.2 g/dL (12.0-15.5)
[2018-08-14 03:49] LABS: PLATELET COUNT 16 10^3/uL (150-450)
--- NOTE | 2018-08-14 03:49 | ER Document Report ---
ED General - General Chief Complaint: Nose Problem Stated Complaint: NOSE BLEEDING Time Seen by Provider: 08/14/18 00:34 Primary Care Provider: HINA LAW MD [Primary Care Provider] - Follow up as needed Mode of Arrival: Ambulatory Information source: Patient, Relative, Legal Guardian Notes: Patient presented to the emergency room complaining of intermittent nosebleed blood in urine on bloody stool and intermittent hemoptysis which has been ongoing for the past 5 days. Patient was transferred to the [facility] about a week ago for the same problem and she ended up leaving AGAINST MEDICAL ADVICE. She was seen in the ED yesterday for the same problem she also left AGAINST MEDICAL ADVICE when she was supposed to be transferred for low platelets. Patient has a history of metastatic breast cancer and low platelets and anemia. Today she is in the ED with her sister who had who is her power of district attorney. She complained of rib pains and intermittent nosebleed, coughing up blood and blood in the urine. TRAVEL OUTSIDE OF THE [place] IN LAST 30 DAYS: No - HPI Onset: Other - 5 days. Onset/Duration: Intermittent Quality of pain: Achy, Dull Severity: Mild Pain Level: 1 Exacerbated by: Denies Relieved by: Denies Similar symptoms previously: Yes Recently seen / treated by doctor: Yes - Related Data Allergies/Adverse Reactions: latex Allergy (Severe, Verified 08/06/18 17:14) blisters,rash morphine [Morphine] Allergy (Severe, Verified 08/06/18 17:14) short of breath Sulfa (Sulfonamide Antibiotics) Allergy (Intermediate, Verified 08/06/18 17:14) rash adhesive Allergy (Verified 08/06/18 17:14) Plastic tape Adverse Reaction (Uncoded 08/06/18 17:14) Blisters Past Medical History - Social History Smoking Status: Current Every Day Smoker Family History: Reviewed & Not Pertinent Patient has suicidal ideation: No Patient has homicidal ideation: No - Past Medical History Cardiac Medical History: Denies: Hx Congestive Heart Failure, Hx Coronary Artery Disease, Hx Heart Attack, Hx Hypertension Pulmonary Medical History: Reports: Hx Asthma, Hx COPD, Hx Pneumonia Denies: Hx Bronchitis Neurological Medical History: Denies: Hx Cerebrovascular Accident, Hx Seizures Renal/ Medical History: Denies: Hx Peritoneal Dialysis Malignancy Medical History: Reports: Hx Breast Cancer - Stage IV, mets to L5 and R & L posterior parietal skull. GI Medical History: Reports: Hx Gastroesophageal Reflux Disease. Denies: Hx Cirrhosis, Hx Ulcer Musculoskeletal Medical History: Reports Hx Arthritis - generalized, Reports Hx Musculoskeletal Deformity, Reports Hx Musculoskeletal Trauma Psychiatric Medical History: Reports: Hx Anxiety, Hx Depression Traumatic Medical History: Reports: Hx Fractures Past Surgical History: Reports: Hx Breast Surgery - Right lumpectomy x2 w/ axillary lymph node diseection., Hx Cholecystectomy, Hx Orthopedic Surgery - Left patellar reconstruction, Hx Tonsillectomy, Hx Tubal Ligation. Denies: Hx Hysterectomy - Immunizations Immunizations up to date: Yes Hx Diphtheria, Pertussis, Tetanus Vaccination: No Hx Pneumococcal Vaccination: 01/26/15 Review of Systems - Review of Systems Constitutional: No symptoms reported EENT: No symptoms reported, Other - Nose bleed. Cardiovascular: No symptoms reported Respiratory: Cough Gastrointestinal: Black stools Genitourinary: Hematuria Female Genitourinary: No symptoms reported Musculoskeletal: No symptoms reported Skin: No symptoms reported Hematologic/Lymphatic: No symptoms reported Neurological/Psychological: No symptoms reported -: Yes All other systems reviewed and negative Physical Exam - Vital signs Vitals: Temp Pulse Resp BP Pulse Ox 98.9 F 100 18 108/54 L 97 08/13/18 22:55 08/13/18 22:55 08/13/18 22:55 08/13/18 22:55 08/13/18 22:55 Interpretation: Normal - General General appearance: Appears well, Alert - HEENT Head: Normocephalic, Atraumatic Eyes: Normal Pupils: PERRL - Respiratory Respiratory status: No respiratory distress Chest status: Nontender Breath sounds: Normal Chest palpation: Normal - Cardiovascular Rhythm: Regular Heart sounds: Normal auscultation Murmur: No - Abdominal Inspection: Normal Distension: No distension Bowel sounds: Normal Tenderness: Nontender Organomegaly: No organomegaly - Rectal Notes: Rectal exam was deferred because patient was here yesterday and her stool was black and tarry and occult blood positive. - Back Back: Normal, Nontender - Extremities General upper extremity: Normal inspection, Nontender, Normal color, Normal ROM, Normal temperature General lower extremity: Normal inspection, Nontender, Normal color, Normal ROM, Normal temperature, Normal weight bearing. No: Aicha's sign - Neurological Neuro grossly intact: Yes Cognition: Normal Orientation: AAOx4 Franny Coma Scale Eye Opening: Spontaneous Franny Coma Scale Verbal: Oriented [place] Coma Scale Motor: Obeys Commands [place] Coma Scale Total: 15 Speech: Normal Motor strength normal: LUE, RUE, LLE, RLE Sensory: Normal - Psychological Associated symptoms: Normal affect, Normal mood - Skin Skin Temperature: Warm Skin Moisture: Dry Skin Color: Normal Course - Vital Signs Vital signs: Temp Pulse Resp BP Pulse Ox 98.7 F 100 26 H 102/64 99 08/14/18 04:00 08/13/18 22:55 08/14/18 03:00 08/14/18 02:50 08/14/18 03:10 - Laboratory Result Diagrams: 08/14/18 03:05 08/14/18 03:05 Laboratory results interpreted by me: 08/14/18 08/14/18 03:05 03:05 WBC 2.8 L RBC 1.99 L Hgb 6.2 L Hct 18.4 L RDW 18.0 H Plt Count 16 L* Metamyelocytes % 1 H Myelocytes % 2 H BUN 22 H Direct Bilirubin 0.5 H Alkaline Phosphatase 401 H Total Protein 5.4 L Albumin 2.8 L - Diagnostic Test Radiology reviewed: Reports reviewed - Consults Dr Law Time consulted: 05:39 Reason for consultation: 08/14/18 05:[address] oncologist Dr[address] Law. She recommends transfusing 2 units of regular PRCs. - Transfer of Care Notes: 08/14/18 05:38 Patient was accepted at [facility] for transfer for higher level of care by Dr. Grecia Light. Critical Care Note - Critical Care Note Total time excluding time spent on procedures (mins): 45 Discharge - Discharge Clinical Impression: Pancytopenia, Severe anemia, Thrombocytopenia, Metastatic breast cancer Gastrointestinal bleeding Qualifiers: GI bleed type/associated pathology: unspecified gastrointestinal hemorrhage type Qualified Code(s): K92.2 - Gastrointestinal hemorrhage, unspecified Clinical Impression: (Ruled Out): Hematuria Condition: Stable Disposition: [facility] Referrals: HINA LAW MD [Primary Care Provider] - Follow up as needed
--- NOTE | 2018-08-14 03:57 | RADIOLOGY REPORT (SQ) ---
Chest single view on 08/14/2018 at 3:21 AM CLINICAL INDICATION: Shortness of breath COMPARISON: 08/09/2018 FINDINGS: The patient's face and chin obscures some of the left lung apex. ET tube has been removed. There are very small bilateral pleural effusions. There has been improvement in left-sided opacity consistent with improved atelectasis and/or pneumonia. There remains mild bibasilar opacities consistent with atelectasis and/or pneumonia. Mild chronic interstitial changes are noted. Heart is within normal limits for size. IMPRESSION: Very small bilateral pleural effusions with bibasilar atelectasis and/or pneumonia.
[2018-08-14 03:58] LABS: ALANINE AMINOTRANSFERASE 24 U/L (9-52); ALKALINE PHOSPHATASE 401 U/L (38-126); ANION GAP 7 (5-19); ASPARTATE AMINO TRANSFERASE 34 U/L (14-36); BILIRUBIN,DIRECT 0.5 mg/dL (0.0-0.4); BILIRUBIN,TOTAL 1.1 mg/dL (0.2-1.3); BLOOD UREA NITROGEN 22 mg/dL (7-20); CALCIUM 8.6 mg/dL (8.4-10.2); CARBON DIOXIDE 29 mmol/L (22-30); GLUCOSE 81 mg/dL (75-110); TOTAL PROTEIN 5.4 g/dL (6.3-8.2)
[2018-08-14 04:14] LABS: ABSOLUTE LYMPHOCYTES# (MANUAL) 0.6 10^3/uL (0.5-4.7); ABSOLUTE MONOCYTES # (MANUAL) 0.2 10^3/uL (0.1-1.4); ABSOLUTE NEUTROPHILS# (MANUAL) 1.7 10^3/uL (1.7-8.2); BAND NEUTROPHILS % (MANUAL) 3 % (3-5); BASOPHILS % (MANUAL) 0 % (0-2); EOSINOPHILS % (MANUAL) 2 % (0-6); LYMPHOCYTES % (MANUAL) 24 % (13-45); METAMYELOCYTES % (MANUAL) 1 % (0); MONOCYTES % (MANUAL) 7 % (3-13); MYELOCYTES % (MANUAL) 2 % (0); SEGMENTED NEUTROPHILS % (MAN) 61 % (42-78); TOTAL CELLS COUNTED 100
[2018-08-14 04:15] LABS: ANISOCYTOSIS 2+; HYPOCHROMASIA 2+; PLATELET COMMENT ADEQUATE; POLYCHROMASIA 1+
[2018-08-14 04:16] LABS: NUCLEATED RED BLOOD CELLS 14 /100 WBC (0)
[2018-08-14 04:21] LABS: WHITE BLOOD COUNT 2.8 10^3/uL (4.0-10.5)
[2018-08-14] MEDS ORDERED: NORMAL SALINE 250 ML IV PRN (05:33)
[2018-08-14 06:21] LABS: APPEARANCE,URINE SLIGHTLY-CLOUDY; BILIRUBIN,URINE NEGATIVE (NEGATIVE); CALCIUM OXALATE CRYSTALS,URINE TOO NUMEROUS TO CNT /HPF; COLOR,URINE AMBER; GLUCOSE, URINE NEGATIVE (NEGATIVE); KETONES,URINE NEGATIVE (NEGATIVE); LEUKOCYTE ESTERASE,URINE NEGATIVE (NEGATIVE); NITRITE,URINE NEGATIVE (NEGATIVE); PROTEIN,URINE 100 mg/dL (NEGATIVE); URINE SPECIFIC GRAVITY 1.025; UROBILINOGEN,URINE NEGATIVE mg/dL (<2.0)
[2018-08-14 08:32] VITALS: BP 108/68
== END 2018-08-14 08:45 | disposition short-term general hospital (02) ==
LOC: ER 22:05
DX: K92.2 Gastrointestinal hemorrhage, unspecified (principal); D61.818 Other pancytopenia; D64.89 Other specified anemias; D69.6 Thrombocytopenia, unspecified; C50.919 Malignant neoplasm of unspecified site of unspecified female breast; J34.89 Other specified disorders of nose and nasal sinuses; R04.0 Epistaxis; R04.2 Hemoptysis; R07.81 Pleurodynia; R31.9 Hematuria, unspecified; F17.200 Nicotine dependence, unspecified, uncomplicated; J44.9 Chronic obstructive pulmonary disease, unspecified
CPT/HCPCS: 99291; 86900; 86901; 36415; 36430; 86850; 85025; 85610; 85730; 80053; 81001; 86920; 71045; P9016

== ENCOUNTER 2018-08-24 14:13 | Emergency (ER) | payer MEDICAID ==
[2018-08-24] MEDS ORDERED: NORMAL SALINE 250 ML IV PRN ×2 (15:17)
[2018-08-24] MEDS ORDERED: FUROSEMIDE INJ/PF 20 MG/2 ML SDV IV PRN (15:17)
--- NOTE | 2018-08-24 15:22 | ER Document Report ---
ED Medical Screen (RME) - General Chief Complaint: abnormal labs Stated Complaint: ABNORMAL LABS Time Seen by Provider: 08/24/18 15:13 Primary Care Provider: HINA LAW MD [Primary Care Provider] - Follow up as needed Notes: Patient is a 52-year-old female history of breast cancer with metastases to her bones presents to the emergency department with orders from her oncologist Dr. Law for blood transfusion. Her labs revealed a hemoglobin of 6.8 with a platelet count of 2. Orders were provided by Dr. Law, in patient's chart. Patient is denying all complaints to include respiratory distress, weakness, chest pain. States she was just sent here by her doctor. GENERAL: Alert, interacts well. Pale, on oxygen 2 L/min ABDOMEN: Soft, non-tender. Non-distended. Bowel sounds present in all 4 quadran ts. I have greeted and performed a rapid initial assessment of this patient. A comprehensive ED assessment and evaluation of the patient, analysis of test results and completion of the medical decision making process will be conducted by additional ED providers. TRAVEL OUTSIDE OF THE [place] IN LAST 30 DAYS: No - Related Data Allergies/Adverse Reactions: latex Allergy (Severe, Verified 08/24/18 14:33) blisters,rash morphine [Morphine] Allergy (Severe, Verified 08/24/18 14:33) short of breath Sulfa (Sulfonamide Antibiotics) Allergy (Intermediate, Verified 08/24/18 14:33) rash adhesive Allergy (Verified 08/24/18 14:33) Plastic tape Adverse Reaction (Uncoded 08/24/18 14:33) Blisters Past Medical History - Social History Chew tobacco use (# tins/day): - 1ppd - Past Medical History Cardiac Medical History: Denies: Hx Congestive Heart Failure, Hx Coronary Artery Disease, Hx Heart Attack, Hx Hypertension Pulmonary Medical History: Reports: Hx Asthma, Hx COPD, Hx Pneumonia Denies: Hx Bronchitis Neurological Medical History: Denies: Hx Cerebrovascular Accident, Hx Seizures Renal/ Medical History: Denies: Hx Peritoneal Dialysis Malignancy Medical History: Reports: Hx Breast Cancer - Stage IV, mets to L5 and R & L posterior parietal skull. GI Medical History: Reports: Hx Gastroesophageal Reflux Disease. Denies: Hx Cirrhosis, Hx Ulcer Musculoskeltal Medical History: Reports Hx Arthritis - generalized, Reports Hx Musculoskeletal Deformity, Reports Hx Musculoskeletal Trauma Psychiatric Medical History: Reports: Hx Anxiety, Hx Depression Traumatic Medical History: Reports: Hx Fractures Past Surgical History: Reports: Hx Breast Surgery - Right lumpectomy x2 w/ axillary lymph node diseection., Hx Cholecystectomy, Hx Orthopedic Surgery - Left patellar reconstruction, Hx Tonsillectomy, Hx Tubal Ligation. Denies: Hx Hysterectomy - Immunizations Immunizations up to date: Yes Hx Diphtheria, Pertussis, Tetanus Vaccination: No History of Influenza Vaccine for 02/2017 - 07/2017 Season: Yes Influenza Administration Date for 02/2017 - 07/2017 Season: 02/16/18 Physical Exam - Vital signs Vitals: Temp Pulse Resp BP Pulse Ox 98.4 F 88 16 101/58 L 100 08/24/18 14:35 08/24/18 14:35 08/24/18 14:35 08/24/18 14:35 08/24/18 14:35 Course - Vital Signs Vital signs: Temp Pulse Resp BP Pulse Ox 98.4 F 88 16 101/58 L 100 08/24/18 14:35 08/24/18 14:35 08/24/18 14:35 08/24/18 14:35 08/24/18 14:35 Doctor's Discharge - Discharge Referrals: HINA LAW MD [Primary Care Provider] - Follow up as needed
[2018-08-24 16:45] LABS: HEMATOCRIT 20.5 % (36.0-47.0); MEAN CORPUSCULAR HEMOGLOBIN 31.9 pg (27.0-33.4); MEAN CORPUSCULAR HGB CONC 34.7 g/dL (32.0-36.0); MEAN CORPUSCULAR VOLUME 92 fl (80-97); RED BLOOD COUNT 2.22 10^6/uL (3.72-5.28); WHITE BLOOD COUNT 6.3 10^3/uL (4.0-10.5)
[2018-08-24 16:46] LABS: INTERNATIONAL RATION (INR) 0.97; PROTHROMBIN TIME 13.3 SEC (11.4-15.4)
[2018-08-24 16:47] LABS: PARTIAL THROMBOPLASTIN TIME 32.1 SEC (23.5-35.8)
[2018-08-24 16:57] LABS: HEMOGLOBIN 7.1 g/dL (12.0-15.5)
[2018-08-24 16:59] LABS: ALANINE AMINOTRANSFERASE 22 U/L (9-52); ALBUMIN 3.2 g/dL (3.5-5.0); ALKALINE PHOSPHATASE 474 U/L (38-126); ASPARTATE AMINO TRANSFERASE 38 U/L (14-36); BILIRUBIN,DIRECT 0.6 mg/dL (0.0-0.4); BILIRUBIN,TOTAL 1.2 mg/dL (0.2-1.3); BLOOD UREA NITROGEN 21 mg/dL (7-20); CALCIUM 9.1 mg/dL (8.4-10.2); GLUCOSE 139 mg/dL (75-110); POTASSIUM 4.7 mmol/L (3.6-5.0)
[2018-08-24 17:05] LABS: CARBON DIOXIDE 35 mmol/L (22-30); CHLORIDE 98 mmol/L (98-107); SODIUM 137.9 mmol/L (137-145)
[2018-08-24 17:06] LABS: ANION GAP 5 (5-19)
[2018-08-24 17:09] LABS: PLATELET COUNT 6 10^3/uL (150-450)
[2018-08-24 17:11] LABS: ABSOLUTE LYMPHOCYTES# (MANUAL) 1.1 10^3/uL (0.5-4.7); ABSOLUTE MONOCYTES # (MANUAL) 0.4 10^3/uL (0.1-1.4); ABSOLUTE NEUTROPHILS# (MANUAL) 4.7 10^3/uL (1.7-8.2); BAND NEUTROPHILS % (MANUAL) 2 % (3-5); BASOPHILS % (MANUAL) 0 % (0-2); EOSINOPHILS % (MANUAL) 0 % (0-6); LYMPHOCYTES % (MANUAL) 18 % (13-45); MONOCYTES % (MANUAL) 7 % (3-13); NUCLEATED RED BLOOD CELLS 13 /100 WBC (0); SEGMENTED NEUTROPHILS % (MAN) 73 % (42-78); TOTAL CELLS COUNTED 100
[2018-08-24 17:12] LABS: TOXIC GRANULATION SLIGHT
[2018-08-24 17:13] LABS: ANISOCYTOSIS 1+; PLATELET COMMENT DECREASED; POIKILOCYTOSIS SLIGHT
--- NOTE | 2018-08-24 17:30 | ER Document Report ---
ED General - General Chief Complaint: abnormal labs Stated Complaint: ABNORMAL LABS Time Seen by Provider: 08/24/18 15:13 Primary Care Provider: HINA LAW MD [Primary Care Provider] - Follow up as needed TRAVEL OUTSIDE OF THE [place] IN LAST 30 DAYS: No - Related Data Allergies/Adverse Reactions: latex Allergy (Severe, Verified 08/24/18 14:33) blisters,rash morphine [Morphine] Allergy (Severe, Verified 08/24/18 14:33) short of breath Sulfa (Sulfonamide Antibiotics) Allergy (Intermediate, Verified 08/24/18 14:33) rash adhesive Allergy (Verified 08/24/18 14:33) Plastic tape Adverse Reaction (Uncoded 08/24/18 14:33) Blisters Past Medical History - Social History Smoking Status: Current Every Day Smoker Chew tobacco use (# tins/day): - 1ppd Family History: Reviewed & Not Pertinent Patient has suicidal ideation: No Patient has homicidal ideation: No - Past Medical History Cardiac Medical History: Denies: Hx Congestive Heart Failure, Hx Coronary Artery Disease, Hx Heart Attack, Hx Hypertension Pulmonary Medical History: Reports: Hx Asthma, Hx COPD, Hx Pneumonia Denies: Hx Bronchitis Neurological Medical History: Denies: Hx Cerebrovascular Accident, Hx Seizures Renal/ Medical History: Denies: Hx Peritoneal Dialysis Malignancy Medical History: Reports: Hx Breast Cancer - Stage IV, mets to L5 and R & L posterior parietal skull. GI Medical History: Reports: Hx Gastroesophageal Reflux Disease. Denies: Hx Cirrhosis, Hx Ulcer Musculoskeletal Medical History: Reports Hx Arthritis - generalized, Reports Hx Musculoskeletal Deformity, Reports Hx Musculoskeletal Trauma Psychiatric Medical History: Reports: Hx Anxiety, Hx Depression Traumatic Medical History: Reports: Hx Fractures Past Surgical History: Reports: Hx Breast Surgery - Right lumpectomy x2 w/ axillary lymph node diseection., Hx Cholecystectomy, Hx Orthopedic Surgery - Left patellar reconstruction, Hx Tonsillectomy, Hx Tubal Ligation. Denies: Hx Hysterectomy - Immunizations Immunizations up to date: Yes Hx Diphtheria, Pertussis, Tetanus Vaccination: No Hx Pneumococcal Vaccination: 01/26/15 Physical Exam - Vital signs Vitals: Temp Pulse Resp BP Pulse Ox 98.4 F 88 16 101/58 L 100 08/24/18 14:35 08/24/18 14:35 08/24/18 14:35 08/24/18 14:35 08/24/18 14:35 Course - Re-evaluation Re-evalutation: 08/24/18 17:29 Patient is not in the room. - Vital Signs Vital signs: Temp Pulse Resp BP Pulse Ox 98.4 F 88 16 101/58 L 100 08/24/18 14:35 08/24/18 14:35 08/24/18 14:35 08/24/18 14:35 08/24/18 14:35 - Laboratory Result Diagrams: 08/24/18 16:07 08/24/18 16:07 Laboratory results interpreted by me: 08/24/18 08/24/18 08/24/18 16:07 16:07 16:07 RBC 2.22 L Hgb 7.1 L Hct 20.5 L RDW 17.0 H Plt Count 6 L* Band Neutrophils % 2 L Carbon Dioxide 35 H BUN 21 H Glucose 139 H Direct Bilirubin 0.6 H AST 38 H Alkaline Phosphatase 474 H Total Protein 6.0 L Albumin 3.2 L Crossmatch See Detail Discharge - Discharge Referrals: HINA LAW MD [Primary Care Provider] - Follow up as needed
[2018-08-24 19:00] LABS: APPEARANCE,URINE SLIGHTLY-CLOUDY; BILIRUBIN,URINE NEGATIVE (NEGATIVE); COLOR,URINE YELLOW; GLUCOSE, URINE NEGATIVE (NEGATIVE); KETONES,URINE NEGATIVE (NEGATIVE); LEUKOCYTE ESTERASE,URINE NEGATIVE (NEGATIVE); NITRITE,URINE NEGATIVE (NEGATIVE); PROTEIN,URINE NEGATIVE (NEGATIVE); URINE SPECIFIC GRAVITY 1.011
[2018-08-24 19:20] VITALS: BP 109/98
--- NOTE | 2018-08-24 19:20 | ER Document Report ---
ED General - General Chief Complaint: abnormal labs Stated Complaint: ABNORMAL LABS Time Seen by Provider: 08/24/18 15:13 Primary Care Provider: HINA LAW MD [ACTIVE STAFF] - Follow up as needed Mode of Arrival: Wheelchair Information source: Patient, [facility] Records Notes: Patient is a 52-year-old female history of breast cancer with metastases to her bones presents to the emergency department with orders from her oncologist Dr. Law for blood transfusion. Her labs revealed a hemoglobin of 6.8 with a platelet count of 6. Orders were provided by Dr. Law, in patient's chart. Patient was not in her room when exam initiated. She was found outside sitting in her wheelchair. Upon arrival back into the emergency department patient immediately requests to be let to go smoke. Patient expresses that she is unhappy that she is going to be stuck here for several hours to receive her transfusions. She states that she is enrolling in hospice. TRAVEL OUTSIDE OF THE [place] IN LAST 30 DAYS: No - HPI Onset: Other Quality of pain: Achy Severity: Mild Associated symptoms: Body/muscle aches, Nausea, Shortness of breath. denies: Chest pain, Fever, Vomiting Exacerbated by: Denies Relieved by: Denies Similar symptoms previously: Yes Recently seen / treated by doctor: Yes - Related Data Allergies/Adverse Reactions: latex Allergy (Severe, Verified 08/24/18 14:33) blisters,rash morphine [Morphine] Allergy (Severe, Verified 08/24/18 14:33) short of breath Sulfa (Sulfonamide Antibiotics) Allergy (Intermediate, Verified 08/24/18 14:33) rash adhesive Allergy (Verified 08/24/18 14:33) Plastic tape Adverse Reaction (Uncoded 08/24/18 14:33) Blisters Past Medical History - General Information source: Patient, [facility] Records - Social History Smoking Status: Current Every Day Smoker Cigarette use (# per day): Yes - 15 Chew tobacco use (# tins/day): - 1ppd Smoking Education Provided: Yes - Smoking cessation counseling was provided for 4 minutes at the bedside Frequency of alcohol use: None Drug Abuse: None Lives with: Alone Family History: Reviewed & Not Pertinent Patient has suicidal ideation: No Patient has homicidal ideation: No - Past Medical History Cardiac Medical History: Denies: Hx Congestive Heart Failure, Hx Coronary Artery Disease, Hx Heart Attack, Hx Hypertension Pulmonary Medical History: Reports: Hx Asthma, Hx COPD, Hx Pneumonia Denies: Hx Bronchitis Neurological Medical History: Denies: Hx Cerebrovascular Accident, Hx Seizures Renal/ Medical History: Denies: Hx Peritoneal Dialysis Malignancy Medical History: Reports: Hx Breast Cancer - Stage IV, mets to L5 and R & L posterior parietal skull. GI Medical History: Reports: Hx Gastroesophageal Reflux Disease. Denies: Hx Cirrhosis, Hx Ulcer Musculoskeletal Medical History: Reports Hx Arthritis - generalized, Reports Hx Musculoskeletal Deformity, Reports Hx Musculoskeletal Trauma Psychiatric Medical History: Reports: Hx Anxiety, Hx Depression Traumatic Medical History: Reports: Hx Fractures Past Surgical History: Reports: Hx Breast Surgery - Right lumpectomy x2 w/ axillary lymph node diseection., Hx Cholecystectomy, Hx Orthopedic Surgery - Left patellar reconstruction, Hx Tonsillectomy, Hx Tubal Ligation. Denies: Hx Hysterectomy - Immunizations Immunizations up to date: Yes Hx Diphtheria, Pertussis, Tetanus Vaccination: No Hx Pneumococcal Vaccination: 01/26/15 Review of Systems - Review of Systems Constitutional: Malaise, Weakness, Weight loss, Recent illness. denies: Fever EENT: denies: Blurred vision Cardiovascular: denies: Chest pain, Palpitations, Edema Respiratory: Short of breath Gastrointestinal: Nausea. denies: Vomiting Genitourinary: denies: Flank pain Female Genitourinary: No symptoms reported Skin: denies: Rash Hematologic/Lymphatic: Anemia, Easy bleeding, Easy bruising Neurological/Psychological: denies: Headaches -: Yes All other systems reviewed and negative Physical Exam - Vital signs Vitals: Temp Pulse Resp BP Pulse Ox 98.4 F 88 16 101/58 L 100 08/24/18 14:35 08/24/18 14:35 08/24/18 14:35 08/24/18 14:35 08/24/18 14:35 - Notes Notes: PHYSICAL EXAMINATION: GENERAL: Ill-appearing HEAD: Atraumatic, normocephalic. EYES: Pupils equal round and reactive to light, extraocular movements intact, conjunctiva are normal. ENT: Nares patent, oropharynx clear without exudates. Dry mucous membranes. NECK: Normal range of motion, supple without lymphadenopathy LUNGS: Breath sounds clear to auscultation bilaterally and equal. No wheezes rales or rhonchi. HEART: Regular rate and rhythm without murmurs ABDOMEN: Soft, nontender, nondistended abdomen. No guarding, no rebound. No masses appreciated. Female : deferred Musculoskeletal: Normal range of motion, no pitting or edema. No cyanosis. NEUROLOGICAL: Cranial nerves grossly intact. Normal speech, normal gait. Normal sensory, motor exams PSYCH: Normal mood, normal affect. SKIN: Diffuse areas of ecchymosis on the upper and lower extremities. Course - Re-evaluation Re-evalutation: Laboratory 08/24/18 08/24/18 08/24/18 16:07 16:07 16:07 WBC 6.3 RBC 2.22 L Hgb 7.1 L Hct 20.5 L MCV 92 MCH 31.9 MCHC 34.7 RDW 17.0 H Plt Count 6 L* Total Counted 100 Seg Neutrophils % Not Reportable Seg Neuts % (Manual) 73 Band Neutrophils % 2 L Lymphocytes % Not Reportable Lymphocytes % (Manual) 18 Monocytes % Not Reportable Monocytes % (Manual) 7 Eosinophils % Not Reportable Eosinophils % (Manual) 0 Basophils % Not Reportable Basophils % (Manual) 0 Absolute Neutrophils Not Reportable Abs Neuts (Manual) 4.7 Absolute Lymphocytes Not Reportable Abs Lymphs (Manual) 1.1 Absolute Monocytes Not Reportable Abs Monocytes (Manual) 0.4 Absolute Eosinophils Not Reportable Absolute Eos (Manual) 0.0 Absolute Basophils Not Reportable Abs Basophils (Manual) 0.0 Nucleated RBCs 13 Toxic Granulation SLIGHT Platelet Comment DECREASED Poikilocytosis SLIGHT Anisocytosis 1+ PT 13.3 INR 0.97 APTT 32.1 Sodium 137.9 Potassium 4.7 Chloride 98 Carbon Dioxide 35 H Anion Gap 5 BUN 21 H Creatinine 0.78 Est GFR ( Amer) > 60 Est GFR (Non-Af Amer) > 60 Glucose 139 H Calcium 9.1 Total Bilirubin 1.2 Direct Bilirubin 0.6 H Neonat Total Bilirubin Not Reportable Neonat Direct Bilirubin Not Reportable Neonat Indirect Bili Not Reportable AST 38 H ALT 22 Alkaline Phosphatase 474 H Total Protein 6.0 L Albumin 3.2 L Urine Color Urine Appearance Urine pH Ur Specific [place] Urine Protein Urine Glucose (UA) Urine Ketones Urine Blood Urine Nitrite Urine Bilirubin Urine Urobilinogen Ur Leukocyte Esterase Urine WBC (Auto) Urine RBC (Auto) Squamous Epi Cells Auto Urine Mucus (Auto) Urine Ascorbic Acid Blood Type Antibody Screen Crossmatch 08/24/18 08/24/18 16:07 18:36 WBC RBC Hgb Hct MCV MCH MCHC RDW Plt Count Total Counted Seg Neutrophils % Seg Neuts % (Manual) Band Neutrophils % Lymphocytes % Lymphocytes % (Manual) Monocytes % Monocytes % (Manual) Eosinophils % Eosinophils % (Manual) Basophils % Basophils % (Manual) Absolute Neutrophils Abs Neuts (Manual) Absolute Lymphocytes Abs Lymphs (Manual) Absolute Monocytes Abs Monocytes (Manual) Absolute Eosinophils Absolute Eos (Manual) Absolute Basophils Abs Basophils (Manual) Nucleated RBCs Toxic Granulation Platelet Comment Poikilocytosis Anisocytosis PT INR APTT Sodium Potassium Chloride Carbon Dioxide Anion Gap BUN Creatinine Est GFR ( Amer) Est GFR (Non-Af Amer) Glucose Calcium Total Bilirubin Direct Bilirubin Neonat Total Bilirubin Neonat Direct Bilirubin Neonat Indirect Bili AST ALT Alkaline Phosphatase Total Protein Albumin Urine Color YELLOW Urine Appearance SLIGHTLY-CLOUDY Urine pH 6.0 Ur Specific [place] 1.011 Urine Protein NEGATIVE Urine Glucose (UA) NEGATIVE Urine Ketones NEGATIVE Urine Blood NEGATIVE Urine Nitrite NEGATIVE Urine Bilirubin NEGATIVE Urine Urobilinogen 4.0 H Ur Leukocyte Esterase NEGATIVE Urine WBC (Auto) 1 Urine RBC (Auto) 0 Squamous Epi Cells Auto 5 Urine Mucus (Auto) RARE Urine Ascorbic Acid NEGATIVE Blood Type O POSITIVE Antibody Screen NEGATIVE Crossmatch See Detail Temp Pulse Resp BP Pulse Ox 98.1 F 92 18 109/98 H 100 08/24/18 18:50 08/24/18 18:20 08/24/18 19:11 08/24/18 19:11 08/24/18 19:11 52-year-old female with metastatic breast cancer presents with orders from her oncologist for transfusion of platelets and PRBCs. Vital signs reviewed upon arrival. Patient does appear ill, dehydrated but denies any complaints except for mild nausea and shortness of breath which is chronic. 08/24/18 19:20 Patient received 1 unit of platelets and is now refusing any further blood products. She states that she wants the blood to go to someone who needs it as she is getting ready to become a hospice patient. 08/24/18 21:13 Patient left AGAINST MEDICAL ADVICE. - Vital Signs Vital signs: Temp Pulse Resp BP Pulse Ox 98.1 F 92 18 109/98 H 100 08/24/18 18:50 08/24/18 18:20 08/24/18 19:11 08/24/18 19:11 08/24/18 19:11 - Laboratory Result Diagrams: 08/24/18 16:07 08/24/18 16:07 Laboratory results interpreted by me: 08/24/18 08/24/18 08/24/18 16:07 16:07 16:07 RBC 2.22 L Hgb 7.1 L Hct 20.5 L RDW 17.0 H Plt Count 6 L* Band Neutrophils % 2 L Carbon Dioxide 35 H BUN 21 H Glucose 139 H Direct Bilirubin 0.6 H AST 38 H Alkaline Phosphatase 474 H Total Protein 6.0 L Albumin 3.2 L Urine Urobilinogen Crossmatch See Detail 08/24/18 18:36 RBC Hgb Hct RDW Plt Count Band Neutrophils % Carbon Dioxide BUN Glucose Direct Bilirubin AST Alkaline Phosphatase Total Protein Albumin Urine Urobilinogen 4.0 H Crossmatch Discharge - Discharge Clinical Impression: Metastatic cancer, Thrombocytopenia Anemia Qualifiers: Anemia type: unspecified type Qualified Code(s): D64.9 - Anemia, unspecified Condition: Fair Disposition: AGAINST MEDICAL ADVICE Referrals: HINA LAW MD [ACTIVE STAFF] - Follow up as needed
== END 2018-08-24 19:30 | disposition left against medical advice (07) ==
LOC: ER 14:13
DX: D69.6 Thrombocytopenia, unspecified (principal); D64.9 Anemia, unspecified; C50.919 Malignant neoplasm of unspecified site of unspecified female breast; C79.51 Secondary malignant neoplasm of bone; R11.0 Nausea; R53.1 Weakness; R53.81 Other malaise; R63.4 Abnormal weight loss; R58 Hemorrhage, not elsewhere classified; J44.9 Chronic obstructive pulmonary disease, unspecified; R06.02 Shortness of breath; M79.10 Myalgia, unspecified site; F17.210 Nicotine dependence, cigarettes, uncomplicated; Z71.6 Tobacco abuse counseling; Z88.5 Allergy status to narcotic agent; Z88.2 Allergy status to sulfonamides; Z91.048 Other nonmedicinal substance allergy status; Z91.040 Latex allergy status; Z53.29 Procedure and treatment not carried out because of patient's decision for other reasons
CPT/HCPCS: 99406; 99284; 86900; 86901; 36415; 87086; 36430; 86850; 85025; 85610; 85730; 80053; 81001; 86920; P9035

== ENCOUNTER 2018-08-25 15:21 | Outpatient (CLI) | payer MEDICAID ==
[2018-08-25] MEDS ORDERED: NORMAL SALINE 250 ML IV PRN (16:00)
[2018-08-25 16:11] LABS: HEMATOCRIT 17.1 % (36.0-47.0); MEAN CORPUSCULAR HEMOGLOBIN 31.3 pg (27.0-33.4); MEAN CORPUSCULAR HGB CONC 34.9 g/dL (32.0-36.0); MEAN CORPUSCULAR VOLUME 90 fl (80-97); RED BLOOD COUNT 1.91 10^6/uL (3.72-5.28); RED CELL DISTRIBUTION WIDTH 16.5 % (11.5-14.0)
[2018-08-25 16:17] LABS: PLATELET COUNT 8 10^3/uL (150-450)
[2018-08-25] MEDS: ACETAMINOPHEN 325 MG TABLET ONE ×2 (17:23→18:04)
[2018-08-25] MEDS: DIPHENHYDRAMINE HCL 25 MG CAPSULE ONE ×2 (17:24→18:04)
[2018-08-26 03:12] LABS: HEMATOCRIT 22.9 % (36.0-47.0); MEAN CORPUSCULAR HEMOGLOBIN 31.1 pg (27.0-33.4); MEAN CORPUSCULAR HGB CONC 34.9 g/dL (32.0-36.0); MEAN CORPUSCULAR VOLUME 89 fl (80-97); RED BLOOD COUNT 2.57 10^6/uL (3.72-5.28); WHITE BLOOD COUNT 5.2 10^3/uL (4.0-10.5)
[2018-08-26 03:29] LABS: PLATELET COUNT 33 10^3/uL (150-450)
[2018-08-26 06:12] VITALS: BP 103/51
== END 2018-08-26 06:40 | disposition home or self-care (01) ==
LOC: LAB 15:21 → 2N 15:28 → LAB 08-26 06:40
PROVIDERS: ATTEND Internal Medicine Medical Oncology
PROC: 3E033GC Introduction of Other Therapeutic Substance into Peripheral Vein, Percutaneous Approach (ICD-10-PCS; principal; 2018-08-25)
PROC: 30233N1 Transfusion of Nonautologous Red Blood Cells into Peripheral Vein, Percutaneous Approach (ICD-10-PCS; 2018-08-25)
PROC: 30233R1 Transfusion of Nonautologous Platelets into Peripheral Vein, Percutaneous Approach (ICD-10-PCS; 2018-08-25)
PROC: 30233R1 Transfusion of Nonautologous Platelets into Peripheral Vein, Percutaneous Approach (ICD-10-PCS; 2018-08-26)
DX: C50.919 Malignant neoplasm of unspecified site of unspecified female breast (principal); C79.51 Secondary malignant neoplasm of bone; D61.818 Other pancytopenia
CPT/HCPCS: 86900; 86901; 36415; 36430; 86850; 85027; 86920; P9016; P9035; J1940; 96374

== ENCOUNTER 2018-08-31 13:12 | Emergency (ER) | payer MEDICAID ==
--- NOTE | 2018-08-31 14:28 | ER Document Report ---
ED Medical Screen (RME) - General Chief Complaint: Anemia Stated Complaint: TRANSFUSION Time Seen by Provider: 08/31/18 14:25 Mode of Arrival: Wheelchair Information source: Patient - His oxygen Notes: 52-year-old female presents to ED for needing a blood transfusion. She states she was sent over for Dr. Narayanan's office for blood transfusions. She has a history of breast cancer on the right with lumpectomies. She has a hemoglobin and hematocrit of 5.9 and 18.2. She states she continues to smoke a pack per day. She is alert oriented and is on O2 at this time. Her type and screen and saline lock have been ordered as well as a CBC. I have greeted and performed a rapid initial assessment of this patient. A comprehensive ED assessment and evaluation of the patient, analysis of test results and completion of medical decision making process will be conducted by an additional ED providers. TRAVEL OUTSIDE OF THE [place] IN LAST 30 DAYS: No - Related Data Allergies/Adverse Reactions: latex Allergy (Severe, Verified 08/31/18 13:14) blisters,rash morphine [Morphine] Allergy (Severe, Verified 08/31/18 13:14) short of breath Sulfa (Sulfonamide Antibiotics) Allergy (Intermediate, Verified 08/31/18 13:14) rash adhesive Allergy (Verified 08/31/18 13:14) Plastic tape Adverse Reaction (Uncoded 08/31/18 13:14) Blisters Past Medical History - Past Medical History Cardiac Medical History: Denies: Hx Congestive Heart Failure, Hx Coronary Artery Disease, Hx Heart Attack, Hx Hypertension Pulmonary Medical History: Reports: Hx Asthma, Hx COPD, Hx Pneumonia Denies: Hx Bronchitis Neurological Medical History: Denies: Hx Cerebrovascular Accident, Hx Seizures Renal/ Medical History: Denies: Hx Peritoneal Dialysis Malignancy Medical History: Reports: Hx Breast Cancer - Stage IV, mets to L5 and R & L posterior parietal skull. GI Medical History: Reports: Hx Gastroesophageal Reflux Disease. Denies: Hx Cirrhosis, Hx Ulcer Musculoskeltal Medical History: Reports Hx Arthritis - generalized, Reports Hx Musculoskeletal Deformity, Reports Hx Musculoskeletal Trauma Psychiatric Medical History: Reports: Hx Anxiety, Hx Depression Traumatic Medical History: Reports: Hx Fractures Past Surgical History: Reports: Hx Breast Surgery - Right lumpectomy x2 w/ axillary lymph node diseection., Hx Cholecystectomy, Hx Orthopedic Surgery - Left patellar reconstruction, Hx Tonsillectomy, Hx Tubal Ligation. Denies: Hx Hysterectomy - Immunizations Immunizations up to date: Yes Hx Diphtheria, Pertussis, Tetanus Vaccination: No History of Influenza Vaccine for 02/2017 - 07/2017 Season: Yes Influenza Administration Date for 02/2017 - 07/2017 Season: 02/16/18 Physical Exam - Vital signs Vitals: Temp Pulse Resp BP Pulse Ox 98.0 F 110 H 20 99/54 L 100 08/31/18 13:22 08/31/18 13:22 08/31/18 13:22 08/31/18 13:22 08/31/18 13:22 Course - Vital Signs Vital signs: Temp Pulse Resp BP Pulse Ox 98.0 F 110 H 20 99/54 L 100 08/31/18 13:22 08/31/18 13:22 08/31/18 13:22 08/31/18 13:22 08/31/18 13:22
[2018-08-31 15:34] LABS: HEMATOCRIT 16.8 % (36.0-47.0); MEAN CORPUSCULAR HEMOGLOBIN 32.8 pg (27.0-33.4); MEAN CORPUSCULAR HGB CONC 35.5 g/dL (32.0-36.0); RED BLOOD COUNT 1.82 10^6/uL (3.72-5.28); RED CELL DISTRIBUTION WIDTH 16.1 % (11.5-14.0); WHITE BLOOD COUNT 6.9 10^3/uL (4.0-10.5)
[2018-08-31 16:01] LABS: MEAN CORPUSCULAR VOLUME 93 fl (80-97)
[2018-08-31 16:13] LABS: ABSOLUTE LYMPHOCYTES# (MANUAL) 1.6 10^3/uL (0.5-4.7); ABSOLUTE MONOCYTES # (MANUAL) 0.1 10^3/uL (0.1-1.4); ABSOLUTE NEUTROPHILS# (MANUAL) 5.2 10^3/uL (1.7-8.2); BAND NEUTROPHILS % (MANUAL) 1 % (3-5); BASOPHILS % (MANUAL) 0 % (0-2); EOSINOPHILS % (MANUAL) 0 % (0-6); LYMPHOCYTES % (MANUAL) 23 % (13-45); METAMYELOCYTES % (MANUAL) 2 % (0); MONOCYTES % (MANUAL) 2 % (3-13); SEGMENTED NEUTROPHILS % (MAN) 72 % (42-78); TOTAL CELLS COUNTED 100
[2018-08-31 16:15] LABS: ANISOCYTOSIS 1+; PLATELET COMMENT DECREASED; POLYCHROMASIA SLIGHT
[2018-08-31 16:17] LABS: ALKALINE PHOSPHATASE 520 U/L (38-126); ANION GAP 6 (5-19); ASPARTATE AMINO TRANSFERASE 41 U/L (14-36); BLOOD UREA NITROGEN 23 mg/dL (7-20); CALCIUM 8.7 mg/dL (8.4-10.2); CARBON DIOXIDE 37 mmol/L (22-30); CHLORIDE 91 mmol/L (98-107); GLUCOSE 99 mg/dL (75-110); NUCLEATED RED BLOOD CELLS 5 /100 WBC (0); POTASSIUM 4.9 mmol/L (3.6-5.0); SODIUM 134.4 mmol/L (137-145); TOTAL PROTEIN 5.9 g/dL (6.3-8.2)
[2018-08-31 16:18] LABS: ALANINE AMINOTRANSFERASE 21 U/L (9-52); BILIRUBIN,DIRECT 0.9 mg/dL (0.0-0.4); BILIRUBIN,TOTAL 1.8 mg/dL (0.2-1.3)
[2018-08-31 16:20] LABS: PLATELET COUNT 5 10^3/uL (150-450)
[2018-08-31] MEDS ORDERED: NORMAL SALINE 250 ML IV PRN (17:27)
--- NOTE | 2018-08-31 17:36 | ER Document Report ---
ED General - General Chief Complaint: Anemia Stated Complaint: TRANSFUSION Time Seen by Provider: 08/31/18 14:25 Primary Care Provider: HINA LAW MD [Primary Care Provider] - Follow up in 3-5 days Mode of Arrival: Wheelchair Notes: Patient is a 52-year-old female, with history of metastatic breast cancer, and persistent thrombocytopenia and anemia that presents to the emergency department for chief complaint of severe thrombocytopenia. Patient states she had outpatient blood work that demonstrated low platelet and blood counts, and she came to the ED today to have the transfusions. She does see an oncologist, they recommended this. She denies having any headache at this time, she feels generally weak, which she does chronically. She is setting up in-home palliative care and eventually hospice, but is not currently on hospice. She denies having any chest pain, shortness of breath, difficulty breathing, nausea, vomiting or abdominal pain. Past Medical History: Metastatic breast cancer, bone marrow suppression, chronic, cytopenia, and anemia, COPD Past Surgical History: Mediport placement Social History: Former smoker, denies current alcohol or illicit drug use. Family History: Reviewed and noncontributory for presenting illness Allergies: Reviewed, see documented allergy list. REVIEW OF SYSTEMS: Other than noted above, the 12 point review of systems was reviewed with the patient and were negative, all pertinent findings are included in the HPI. PHYSICAL EXAMINATION: Vital signs reviewed, nursing noted reviewed. GENERAL: Chronically ill-appearing female, but in no acute distress HEAD: Atraumatic, normocephalic. EYES: Eyes appear normal, extraocular movements intact, sclera anicteric, conjunctiva are normal. ENT: nares patent, oropharynx clear without exudates. Moist mucous membranes. NECK: Normal range of motion, supple without lymphadenopathy LUNGS: Diminished lung sounds bilaterally, with faint wheezing, no acute respiratory distress however HEART: Heart rate tachycardic, regular rhythm, no audible murmur ABDOMEN: Soft, nontender, normoactive bowel sounds. No rebound, guarding, or rigidity. No masses appreciated. EXTREMITIES: Nontender, good range of motion, trace bilateral lower extremity edema NEUROLOGICAL: No focal neurological deficits. Moves all extremities spontaneously Motor and sensory grossly intact on exam. PSYCH: Patient mildly agitated SKIN: Warm, Dry, normal turgor, areas of ecchymosis on the upper and lower extremities, various degrees and stages of healing TRAVEL OUTSIDE OF THE [place] IN LAST 30 DAYS: No - Related Data Allergies/Adverse Reactions: latex Allergy (Severe, Verified 08/31/18 13:14) blisters,rash morphine [Morphine] Allergy (Severe, Verified 08/31/18 13:14) short of breath Sulfa (Sulfonamide Antibiotics) Allergy (Intermediate, Verified 08/31/18 13:14) rash adhesive Allergy (Verified 08/31/18 13:14) Plastic tape Adverse Reaction (Uncoded 08/31/18 13:14) Blisters Past Medical History - General Information source: Patient - His oxygen - Social History Smoking Status: Former Smoker Family History: Reviewed & Not Pertinent - Past Medical History Cardiac Medical History: Denies: Hx Congestive Heart Failure, Hx Coronary Artery Disease, Hx Heart Attack, Hx Hypertension Pulmonary Medical History: Reports: Hx Asthma, Hx COPD, Hx Pneumonia Denies: Hx Bronchitis Neurological Medical History: Denies: Hx Cerebrovascular Accident, Hx Seizures Renal/ Medical History: Denies: Hx Peritoneal Dialysis Malignancy Medical History: Reports: Hx Breast Cancer - Stage IV, mets to L5 and R & L posterior parietal skull. GI Medical History: Reports: Hx Gastroesophageal Reflux Disease. Denies: Hx Cirrhosis, Hx Ulcer Musculoskeletal Medical History: Reports Hx Arthritis - generalized, Reports Hx Musculoskeletal Deformity, Reports Hx Musculoskeletal Trauma Psychiatric Medical History: Reports: Hx Anxiety, Hx Depression Traumatic Medical History: Reports: Hx Fractures Past Surgical History: Reports: Hx Breast Surgery - Right lumpectomy x2 w/ axillary lymph node diseection., Hx Cholecystectomy, Hx Orthopedic Surgery - Left patellar reconstruction, Hx Tonsillectomy, Hx Tubal Ligation. Denies: Hx Hysterectomy - Immunizations Immunizations up to date: Yes Hx Diphtheria, Pertussis, Tetanus Vaccination: No Hx Pneumococcal Vaccination: 01/26/15 Physical Exam - Vital signs Vitals: Temp Pulse Resp BP Pulse Ox 98.0 F 110 H 20 99/54 L 100 08/31/18 13:22 08/31/18 13:22 08/31/18 13:22 08/31/18 13:22 08/31/18 13:22 Course - Re-evaluation Re-evalutation: Patient seen and examined vital signs reviewed. Laboratory data and/or imaging were ordered as appropriate for the patient's presenting symptoms and complaint, with consideration of any critical or life threatening conditions that may be associated with their obtained history and exam as noted above. Patient was treated with 2 units of packed red blood cells, and a unit of platelets Results were reviewed when available and demonstrated significant thrombocytopenia, platelet count of 5, and anemia with a hemoglobin of 6. The patient was re-evaluated and was stable, improved Evaluation was most consistent with severe thrombocytopenia, and anemia, requiring transfusions, I discussed with this patient these results, and plan of care, she would prefer to be discharged home, she states that she is having a palliative care, and would not want to be admitted to the hospital, she is not exhibiting any signs of spontaneous bleeding at this time, and feel that the patient can be discharged. [id number]/31/[id number] Patient pulled out her IV, and stated she wanted to leave AGAINST MEDICAL ADVICE, her transfusion did not finish, she was encouraged to stay to finish the transfusion, patient was adamant about leaving the hospital, the patient has done this several times in the past. I discussed with her the importance of transfusions, she decided to continue to want to leave, at this point the patient was signed out AGAINST MEDICAL ADVICE. After further discussion, the patient did agree at least temporarily to stay and received a blood. She seems to have issue with one particular nurse, is requesting another nurse, and we stated that this will be difficult at this time. As the department is full. Patient received blood transfusion and was discharged to home, she was encouraged to follow-up with home hospice/palliative care as her condition is terminal and continuing to receive transfusions is becoming futile at this point. *Note is created using voice recognition software and may contain spelling, syntax or grammatical errors. Laboratory 08/31/18 08/31/18 08/31/18 15:10 15:10 15:10 WBC 6.9 RBC 1.82 L Hgb 6.0 L Hct 16.8 L MCV 93 D MCH 32.8 MCHC 35.5 RDW 16.1 H Plt Count 5 L* Total Counted 100 Seg Neutrophils % Not Reportable Seg Neuts % (Manual) 72 Band Neutrophils % 1 L Lymphocytes % Not Reportable Lymphocytes % (Manual) 23 Monocytes % Not Reportable Monocytes % (Manual) 2 L Eosinophils % Not Reportable Eosinophils % (Manual) 0 Basophils % Not Reportable Basophils % (Manual) 0 Metamyelocytes % 2 H Absolute Neutrophils Not Reportable Abs Neuts (Manual) 5.2 Absolute Lymphocytes Not Reportable Abs Lymphs (Manual) 1.6 Absolute Monocytes Not Reportable Abs Monocytes (Manual) 0.1 Absolute Eosinophils Not Reportable Absolute Eos (Manual) 0.0 Absolute Basophils Not Reportable Abs Basophils (Manual) 0.0 Nucleated RBCs 5 Platelet Comment DECREASED Polychromasia SLIGHT Anisocytosis 1+ Sodium 134.4 L Potassium 4.9 Chloride 91 L Carbon Dioxide 37 H Anion Gap 6 BUN 23 H Creatinine 0.72 Est GFR ( Amer) > 60 Est GFR (Non-Af Amer) > 60 Glucose 99 Calcium 8.7 Total Bilirubin 1.8 H Direct Bilirubin 0.9 H Neonat Total Bilirubin Not Reportable Neonat Direct Bilirubin Not Reportable Neonat Indirect Bili Not Reportable AST 41 H ALT 21 Alkaline Phosphatase 520 H Total Protein 5.9 L Albumin 3.0 L Blood Type O POSITIVE Antibody Screen NEGATIVE Crossmatch See Detail 08/31/18 17:23 WBC RBC Hgb Hct MCV MCH MCHC RDW Plt Count Total Counted Seg Neutrophils % Seg Neuts % (Manual) Band Neutrophils % Lymphocytes % Lymphocytes % (Manual) Monocytes % Monocytes % (Manual) Eosinophils % Eosinophils % (Manual) Basophils % Basophils % (Manual) Metamyelocytes % Absolute Neutrophils Abs Neuts (Manual) Absolute Lymphocytes Abs Lymphs (Manual) Absolute Monocytes Abs Monocytes (Manual) Absolute Eosinophils Absolute Eos (Manual) Absolute Basophils Abs Basophils (Manual) Nucleated RBCs Platelet Comment Polychromasia Anisocytosis Sodium Potassium Chloride Carbon Dioxide Anion Gap BUN Creatinine Est GFR ( Amer) Est GFR (Non-Af Amer) Glucose Calcium Total Bilirubin Direct Bilirubin Neonat Total Bilirubin Neonat Direct Bilirubin Neonat Indirect Bili AST ALT Alkaline Phosphatase Total Protein Albumin Blood Type Antibody Screen Crossmatch See Detail - Vital Signs Vital signs: Temp Pulse Resp BP Pulse Ox 98.5 F 98 20 107/62 99 09/01/18 01:32 09/01/18 01:32 09/01/18 01:32 09/01/18 01:32 09/01/18 01:32 - Laboratory Result Diagrams: 08/31/18 15:10 08/31/18 15:10 Laboratory results interpreted by me: 08/31/18 08/31/18 08/31/18 15:10 15:10 15:10 RBC 1.82 L Hgb 6.0 L Hct 16.8 L RDW 16.1 H Plt Count 5 L* Band Neutrophils % 1 L Monocytes % (Manual) 2 L Metamyelocytes % 2 H Sodium 134.4 L Chloride 91 L Carbon Dioxide 37 H BUN 23 H Total Bilirubin 1.8 H Direct Bilirubin 0.9 H AST 41 H Alkaline Phosphatase 520 H Total Protein 5.9 L Albumin 3.0 L Crossmatch See Detail 08/31/18 17:23 RBC Hgb Hct RDW Plt Count Band Neutrophils % Monocytes % (Manual) Metamyelocytes % Sodium Chloride Carbon Dioxide BUN Total Bilirubin Direct Bilirubin AST Alkaline Phosphatase Total Protein Albumin Crossmatch See Detail Critical Care Note - Critical Care Note Total time excluding time spent on procedures (mins): 35 Comments: Critical care time 35 minutes exclusive from separate billable procedures for a patient requiring complex medical decision making, and high potential for clinical deterioration. In a patient with severe thrombocytopenia, high risk for spontaneous bleeding. Time spent obtaining history from patient or surrogate, discussions with consultants, development of treatment plan with patient or surrogate, evaluation of patient's response to treatment, examination of patient, ordering and performing treatments and interventions, ordering and review of laboratory studies, re-evaluation of patient's condition, ordering and review of radiographic studies and review of old charts Discharge - Discharge Clinical Impression: Thrombocytopenia Anemia Qualifiers: Anemia type: unspecified type Qualified Code(s): D64.9 - Anemia, unspecified Condition: Stable Disposition: HOME, SELF-CARE Instructions: Thrombocytopenia ([facility]) Additional Instructions: Please follow-up with palliative care and Dr. Law regarding your ongoing low platelet counts. If you develop severe headache, or have a fall, please return to emergency department as soon as possible. Referrals: HINA LAW MD [Primary Care Provider] - Follow up in 3-5 days
[2018-08-31] MEDS ORDERED: HYDROMORPHONE HCL INJ/PF 2 MG/ML AMPULE IV ONE ×2 (18:27→20:29)
[2018-09-01 01:33] VITALS: BP 107/62
== END 2018-09-01 01:33 | disposition home or self-care (01) ==
LOC: ER 13:12
DX: D69.6 Thrombocytopenia, unspecified (principal); D64.9 Anemia, unspecified; R53.1 Weakness; J44.9 Chronic obstructive pulmonary disease, unspecified; Z85.3 Personal history of malignant neoplasm of breast; Z87.891 Personal history of nicotine dependence
CPT/HCPCS: 96376; 99285; 96374; 86900; 86901; 36415; 36430; 86850; 85025; 80053; 86920; P9016; P9035; J1170

== ENCOUNTER 2018-09-04 19:23 | Emergency (ER) | payer MEDICAID ==
[2018-09-04 19:32] VITALS: BP 109/65
--- NOTE | 2018-09-04 19:37 | ER Document Report ---
ED Medical Screen (RME) - General Chief Complaint: Fall Injury Stated Complaint: FELL HEAD PAIN Time Seen by Provider: 09/04/18 19:34 Primary Care Provider: HINA LAW MD [Primary Care Provider] - Follow up as needed Mode of Arrival: Wheelchair Information source: Patient Notes: 52-year-old female presents to ED for complaint of a head injury. She did not have any loss of consciousness. states she did have a goose egg and then the swelling went down to her right eye it is now swollen around her eye. She also has increased pain in her right shoulder. She states she was leaning forward in the recliner fell forward landing on her face injuring her face and her eye. Patient is normally confused and voiced normally sounds rough and hard to understand. Patient is alert and her normal self except for she has pain and swelling to the right side of her face and I and pain in the right shoulder. I have greeted and performed a rapid initial assessment of this patient. A comprehensive ED assessment and evaluation of the patient, analysis of test results and completion of medical decision making process will be conducted by an additional ED providers. TRAVEL OUTSIDE OF THE [place] IN LAST 30 DAYS: No - Related Data Allergies/Adverse Reactions: latex Allergy (Severe, Verified 08/31/18 13:14) blisters,rash morphine [Morphine] Allergy (Severe, Verified 08/31/18 13:14) short of breath Sulfa (Sulfonamide Antibiotics) Allergy (Intermediate, Verified 08/31/18 13:14) rash adhesive Allergy (Verified 08/31/18 13:14) Plastic tape Adverse Reaction (Uncoded 08/31/18 13:14) Blisters Past Medical History - Past Medical History Cardiac Medical History: Denies: Hx Congestive Heart Failure, Hx Coronary Artery Disease, Hx Heart Attack, Hx Hypertension Pulmonary Medical History: Reports: Hx Asthma, Hx COPD, Hx Pneumonia Denies: Hx Bronchitis Neurological Medical History: Denies: Hx Cerebrovascular Accident, Hx Seizures Renal/ Medical History: Denies: Hx Peritoneal Dialysis Malignancy Medical History: Reports: Hx Breast Cancer - Stage IV, mets to L5 and R & L posterior parietal skull. GI Medical History: Reports: Hx Gastroesophageal Reflux Disease. Denies: Hx Cirrhosis, Hx Ulcer Musculoskeltal Medical History: Reports Hx Arthritis - generalized, Reports Hx Musculoskeletal Deformity, Reports Hx Musculoskeletal Trauma Psychiatric Medical History: Reports: Hx Anxiety, Hx Depression Traumatic Medical History: Reports: Hx Fractures Past Surgical History: Reports: Hx Breast Surgery - Right lumpectomy x2 w/ axillary lymph node diseection., Hx Cholecystectomy, Hx Orthopedic Surgery - Left patellar reconstruction, Hx Tonsillectomy, Hx Tubal Ligation. Denies: Hx Hysterectomy - Immunizations Immunizations up to date: Yes Hx Diphtheria, Pertussis, Tetanus Vaccination: No History of Influenza Vaccine for 02/2017 - 07/2017 Season: Yes Influenza Administration Date for 02/2017 - 07/2017 Season: 02/16/18 Physical Exam - Vital signs Vitals: Temp Pulse Resp BP Pulse Ox 97.8 F 105 H 24 H 109/65 97 09/04/18 19:30 09/04/18 19:30 09/04/18 19:30 09/04/18 19:30 09/04/18 19:30 Course - Vital Signs Vital signs: Temp Pulse Resp BP Pulse Ox 97.8 F 105 H 24 H 109/65 97 09/04/18 19:30 09/04/18 19:30 09/04/18 19:30 09/04/18 19:30 09/04/18 19:30 Doctor's Discharge - Discharge Referrals: HINA LAW MD [Primary Care Provider] - Follow up as needed
--- NOTE | 2018-09-04 20:51 | RADIOLOGY REPORT (SQ) ---
EXAM DESCRIPTION: XR SHOULDER 2 OR MORE VIEWS COMPLETED DATE/TME: 09/04/2018 19:34 CLINICAL HISTORY: 52 years Female Lean forward fell on her face pain and shoulder COMPARISON: None. TECHNIQUE: RIGHT shoulder three view FINDINGS: Findings consistent with widespread osseous metastatic disease with mixed lytic and sclerotic lesions. Some prominence of the interstitial markings in the chest which may be related to fibrosis. Acute interstitial infiltrate is not excluded. No acute fractures or dislocations identified. No osseous destructive lesions. Acromioclavicular joint appears maintained. IMPRESSION: Findings consistent with widespread osseous metastatic disease No acute fracture or dislocation identified.
--- NOTE | 2018-09-04 21:00 | RADIOLOGY REPORT (SQ) ---
EXAM DESCRIPTION: CT HEAD WITHOUT IV CONTRAST COMPLETED DATE/TME: 09/04/2018 19:34 CLINICAL HISTORY: 52 years Female Lean forward fell on her face pain and shoulder ; COMPARISON: None. TECHNIQUE: Contiguous axial CT images obtained through the brain without IV contrast. This exam was performed according to our department optimization program which includes automated exposure control, adjustment of the mA and/or kv according to patient size and/or use of iterative reconstruction technique. FINDINGS: There are diffuse mixed lytic and sclerotic areas throughout the osseous structures consistent with widespread osseous metastatic disease. There is soft tissue prominence over the large moth-eaten appearing lesion in the right frontal calvarium with soft tissue components that extend along the frontal aspect of the scalp and along the extradural space. The ventricles and sulci are within normal limits for the patient's age. No midline shift or mass effect. No masses identified. No acute intracranial hemorrhage. No fluid or significant mucosal thickening in the visualized paranasal sinuses. Findings suggesting fracture of the C2 vertebral body on the right which is incompletely imaged. Recommend CT of the cervical spine. IMPRESSION: No acute intracranial abnormality is identified. Findings consistent with widespread osseous metastatic disease which includes a large moth-eaten lesion in the right frontal calvarium with soft tissue components that extend along the anterior frontal scalp and to involve the extradural space Findings consistent with fracture of C2 which is incompletely imaged. This extends through the right lateral mass. Recommend CT of the cervical spine Findings were called to nurse uziel Regalado at 7:59 PM Central time.
--- NOTE | 2018-09-04 21:48 | RADIOLOGY REPORT (SQ) ---
EXAM DESCRIPTION: CT CERVICAL SPINE WITHOUT IV CONTRAST COMPLETED DATE/TME: 09/04/2018 20:59 CLINICAL HISTORY: 52 years Female radiology states c2 fracture extensive met ca COMPARISON: None. TECHNIQUE: Contiguous axial images obtained through the cervical spine without IV contrast. Coronal and sagittal reformatted images obtained. This exam was performed according to our department optimization program which includes automated exposure control, adjustment of the mA and/or kv according to patient size and/or use of iterative reconstruction technique. FINDINGS: There is widespread osseous metastatic disease. There are mixed lytic and sclerotic lesions. There is a vertebral plana at C4 with mild retropulsion of fracture fragments. Motion artifact limits evaluation. As noted on the CT of the brain there is a pathologic fracture extending through the lateral mass of C2 on the right. Additional fracture through the right lamina may be present. This area is hyperlucent and difficult to evaluate. Findings suggest fragmentation along the left lamina at C3. Mild narrowing of the central canal and neural foramina at C4. Right effusion. Emphysematous changes. IMPRESSION: Widespread osseous metastatic disease Motion artifact on several areas of hyperlucency make evaluations for fractures difficult. There is severe compression at C4 with retropulsion of fracture fragments resulting in mild narrowing of the central canal Fracture through the lateral mass of C2 on the right with possible nondisplaced right laminar fracture Additional area of nondisplaced fracture involving the left lamina at C3. The cervical spinal fracture at C2 has already been reported to the nurse practitioner.
--- NOTE | 2018-09-04 22:08 | ER Document Report ---
Addendum entered and electronically signed by FARIDA FLEIX PA-C 09/14/18 13:50: Discharge - Discharge Clinical Impression: Malignant neoplasm metastatic to breast, Osseous metastasis, Compression fracture of C4 vertebra, Widespread metastatic malignant neoplastic disease Closed C2 fracture Qualifiers: Encounter type: initial encounter Fracture morphology: other fracture Fracture alignment: nondisplaced Qualified Code(s): S12.191A - Other nondisplaced fracture of second cervical vertebra, initial encounter for closed fracture Traumatic closed fracture of C2 vertebra with minimal displacement Qualifiers: Encounter type: initial encounter Qualified Code(s): S12.100A - Unspecified displaced fracture of second cervical vertebra, initial encounter for closed fracture Disposition: AGAINST MEDICAL ADVICE Additional Instructions: We have discussed that you have a neck fracture at the level of your C2 spine. I have informed you that at any time if this were to go to full complete fruition that he will suddenly . Of also explained to you if it partially moves you could end up only paralyzed and no ability to breathe which also leads you to . You have in front of your sister and our charge nurse Rabia voiced opinion that you understand exactly the consequences of your decision to leave AGAINST MEDICAL ADVICE. You have demonstrated competency and understanding and therefore can make her own decisions. Her sister is also in agreement with this and she understands that at any time no fracture can be complete complete and he will in front of her. Forms: Smoking Cessation Education Referrals: HINA LAW MD [Primary Care Provider] - Follow up as needed Original Note: ED Head/Face/Scalp Injury - General Mode of Arrival: Wheelchair Information source: Patient, Relative TRAVEL OUTSIDE OF THE [place] IN LAST 30 DAYS: No - HPI Patient complains to provider of: Injury, Swelling Injury to: Eyebrow, Forehead Location of problem: Forehead, Head, Neck Occurred: This afternoon Where: Home Timing: Still present Context: Fell Loss consciousness: No loss of consciousness <FARIDA FELIX - Last Filed: 09/04/18 23:01> <MARYANN ROGERS - Last Filed: 09/04/18 23:56> - General Chief Complaint: Fall Injury Stated Complaint: FELL HEAD PAIN Time Seen by Provider: 09/04/18 19:34 Primary Care Provider: HINA LAW MD [Primary Care Provider] - Follow up as needed Notes: Patient is a 52-year-old female who was brought in the emergency room by her sister after sustaining a fall at home. Patient states that she was leaning forward in a rock chair or recliner chair fell forward and landed on her face. Patient is coming in with black and blue eyes that the right eye is completely swollen shut and she has a slight headache. Patient is here for evaluation. (FARIDA FELIX) - Related Data Allergies/Adverse Reactions: latex Allergy (Severe, Verified 08/31/18 13:14) blisters,rash morphine [Morphine] Allergy (Severe, Verified 08/31/18 13:14) short of breath Sulfa (Sulfonamide Antibiotics) Allergy (Intermediate, Verified 08/31/18 13:14) rash adhesive Allergy (Verified 08/31/18 13:14) Plastic tape Adverse Reaction (Uncoded 08/31/18 13:14) Blisters Past Medical History - General Information source: Patient, [facility] Records - Social History Smoking Status: Current Every Day Smoker Cigarette use (# per day): Yes - 2 packs a day Smoking Education Provided: Yes Frequency of alcohol use: None Drug Abuse: None Lives with: Family Family History: Reviewed & Not Pertinent Patient has suicidal ideation: No Patient has homicidal ideation: No - Past Medical History Cardiac Medical History: Denies: Hx Congestive Heart Failure, Hx Coronary Artery Disease, Hx Heart Attack, Hx Hypertension Pulmonary Medical History: Reports: Hx Asthma, Hx COPD, Hx Pneumonia Denies: Hx Bronchitis Neurological Medical History: Denies: Hx Cerebrovascular Accident, Hx Seizures Renal/ Medical History: Denies: Hx Peritoneal Dialysis Malignancy Medical History: Reports: Hx Breast Cancer - Stage IV, mets to L5 and R & L posterior parietal skull. GI Medical History: Reports: Hx Gastroesophageal Reflux Disease. Denies: Hx Cirrhosis, Hx Ulcer Musculoskeletal Medical History: Reports Hx Arthritis - generalized, Reports Hx Musculoskeletal Deformity, Reports Hx Musculoskeletal Trauma Psychiatric Medical History: Reports: Hx Anxiety, Hx Depression Traumatic Medical History: Reports: Hx Fractures Past Surgical History: Reports: Hx Breast Surgery - Right lumpectomy x2 w/ axillary lymph node diseection., Hx Cholecystectomy, Hx Orthopedic Surgery - Left patellar reconstruction, Hx Tonsillectomy, Hx Tubal Ligation. Denies: Hx Hysterectomy - Immunizations Immunizations up to date: Yes Hx Diphtheria, Pertussis, Tetanus Vaccination: No Hx Pneumococcal Vaccination: 01/26/15 <FARIDA FELIX - Last Filed: 09/04/18 23:01> Review of Systems - Review of Systems Constitutional: No symptoms reported EENT: See HPI Cardiovascular: No symptoms reported Respiratory: No symptoms reported Gastrointestinal: No symptoms reported Genitourinary: No symptoms reported Female Genitourinary: No symptoms reported Musculoskeletal: No symptoms reported Skin: See HPI, Other - Head and facial trauma Hematologic/Lymphatic: No symptoms reported Neurological/Psychological: See HPI, Headaches -: Yes All other systems reviewed and negative <FARIDA FELIX - Last Filed: 09/04/18 23:01> Physical Exam - Vital signs Interpretation: Hypotensive, Tachycardic <ELVIRAFARIDA Sandip - Last Filed: 09/04/18 23:01> - Vital signs Vitals: Temp Pulse Resp BP Pulse Ox 97.8 F 105 H 24 H 109/65 97 09/04/18 19:30 09/04/18 19:30 09/04/18 19:30 09/04/18 19:30 09/04/18 19:30 - Notes Notes: PHYSICAL EXAMINATION: GENERAL: Patient is a 52-year-old female who appears older than her stated age. She is in no apparent distress on physical examination today. Patient is somewhat disheveled in appearance. And on first examination patient has noticeable trauma to her head and facial areas. HEAD: Patient has a traumatic facial appearance secondary to fall sustained. With ecchymosis about both orbits. EYES: Visual examination of patient's external features show that she has right eye ecchymosis with the entire upper and lower lids swollen with ecchymosis. Unable to examine the eye secondary to patient's refusal. Left eye is open and apparently tracking well. Mild ecchymosis on the upper and lower lids as well but edema is minimal. ENT: Examination head and upper airway is very limited secondary to patient refusing having physical examination she is only wanting to go home. NECK: Patient placed in a c-collar for protective sake prior to that patient was displaying full range of motion. Patient refusing to wear collar. LUNGS: Breath sounds clear to auscultation bilaterally and equal. No wheezes rales or rhonchi. HEART: Tachycardic rate and rhythm without murmurs Female : deferred Musculoskeletal would not allow exam NEUROLOGICAL: Patient is awake alert and oriented x4. She answers questions appropriately she answers appropriately to understanding of her condition. She is aware of the year, president, age, living situation, relatives, date of , she converted patently state that her sister has power of her medical decision making only when she is incapacitated. PSYCH: Normal mood, normal affect. SKIN: Warm, Dry, normal turgor, no rashes or lesions noted. (FARIDA FELIX) Course <FARIDA FELIX - Last Filed: 09/04/18 23:01> - Diagnostic Test Radiology reviewed: Image reviewed, Reports reviewed <MARYANN ROGERS - Last Filed: 09/04/18 23:56> - Re-evaluation Re-evalutation: 09/04/18 22:58 On initial examination patient was demanding to be let go home. She was demanding to leave AMA. Dr. Rogers also was involved in discussing options about hospice care as well as traumatic care and/or the ability to be deemed competent enough to go home. Sister was at bedside as well who has medical power of criminal attorney but "only when patient does not have capacity to make her own decisions. Patient was able to display competency in her decision-making based on her being able to reasonably answer all questions appropriately without hesitation and with conviction. Patient sister at bedside agrees with her sister's decision to leave AGAINST MEDICAL ADVICE. I have explained to her that a C2 fracture with a turning the wrong way once will instantly kill her. Patient acknowledged understanding of this and stated she "only wants to go home to her bed smoke her cigarettes and I am happy.". Patient will be allowed to sign out AGAINST MEDICAL ADVICE with the understanding sister is in total agreement with this we have offered to send patient to a trauma center but they both have agreed to go home is their best options. (FARIDA FELIX) Head CT 09/04/18 19:34 IMPRESSION: No acute intracranial abnormality is identified. Findings consistent with widespread osseous metastatic disease which includes a large moth-eaten lesion in the right frontal calvarium with soft tissue components that extend along the anterior frontal scalp and to involve the extradural space Findings consistent with fracture of C2 which is incompletely imaged. This extends through the right lateral mass. Recommend CT of the cervical spine Findings were called to nurse practitioner Sabine at 7:59 PM Central time. Shoulder X-Ray 09/04/18 19:34 IMPRESSION: Findings consistent with widespread osseous metastatic disease No acute fracture or dislocation identified. Cervical Spine CT 09/04/18 20:59 IMPRESSION: Widespread osseous metastatic disease Motion artifact on several areas of hyperlucency make evaluations for fractures difficult. There is severe compression at C4 with retropulsion of fracture fragments resulting in mild narrowing of the central canal Fracture through the lateral mass of C2 on the right with possible nondisplaced right laminar fracture Additional area of nondisplaced fracture involving the left lamina at C3. The cervical spinal fracture at C2 has already been reported to the nurse practitioner. 09/04/18 23:46 Patient was evaluated with the APC. Ms. Alvarenga is well-known to the department and unfortunately has terminal metastatic cancer. I have taking care of her several times and almost every time she has left AGAINST MEDICAL ADVICE. Patient states that she wants to go home to her bed and smoke her cigarettes. We discussed at length with the patient's sister who is power criminal attorney for [facility] decisions and the patient the severity of her injury and high potential for paralysis and . I discussed at length that we could make her comfort care hospital help her transition to hospice care but the sister informs us that the patient has changed her mind and is no longer a DNR/DNI. She also informs us that she was told 6 weeks ago that the patient placed in hospice but states no action has been taken at this point. Patient's exam is significant for raccoon eyes of both eyelids, multiple superficial abrasions and scattered ecchymosis. Patient is alert, awake and can answer all questions appropriately. Patient she repeats back the injury and the potential for paralysis and . she is adamant about leaving and is screaming and pending her AMA paperwork. at this point I cannot Deem the patient incapable of making her own personal medical decisions. Patient is terminally ill. On her last visit when she was sent in for blood transfusion she declined and stated that she would be going to hospice. Unfortunately her sister is in agreement with the patient leaving AGAINST MEDICAL ADVICE. (MARYANN ROGERS) - Vital Signs Vital signs: Temp Pulse Resp BP Pulse Ox 97.8 F 105 H 24 H 109/65 97 09/04/18 19:30 09/04/18 19:30 09/04/18 19:30 09/04/18 19:30 09/04/18 19:30 Discharge <ELVIRA,FARIDA T - Last Filed: 09/04/18 23:01> <MARYANN ROGERS E - Last Filed: 09/04/18 23:56> - Discharge Clinical Impression: Malignant neoplasm metastatic to breast, Osseous metastasis, Compression fracture of C4 vertebra, Widespread metastatic malignant neoplastic disease Closed C2 fracture Qualifiers: Encounter type: initial encounter Fracture morphology: other fracture Fracture alignment: nondisplaced Qualified Code(s): S12.191A - Other nondisplaced fracture of second cervical vertebra, initial encounter for closed fracture Disposition: AGAINST MEDICAL ADVICE Additional Instructions: We have discussed that you have a neck fracture at the level of your C2 spine. I have informed you that at any time if this were to go to full complete fruition that he will suddenly . Of also explained to you if it partially moves you could end up only paralyzed and no ability to breathe which also leads you to . You have in front of your sister and our charge nurse Rabia voiced opinion that you understand exactly the consequences of your decision to leave AGAINST MEDICAL ADVICE. You have demonstrated competency and understan ding and therefore can make her own decisions. Her sister is also in agreement with this and she understands that at any time no fracture can be complete complete and he will in front of her. Forms: Smoking Cessation Education Referrals: HINA LAW MD [Primary Care Provider] - Follow up as needed
== END 2018-09-04 22:25 | disposition left against medical advice (07) ==
LOC: ER 19:23
DX: S12.100A Unspecified displaced fracture of second cervical vertebra, initial encounter for closed fracture (principal); S00.12XA Contusion of left eyelid and periocular area, initial encounter; S00.11XA Contusion of right eyelid and periocular area, initial encounter; R51 Headache; W07.XXXA Fall from chair, initial encounter; Y92.009 Unspecified place in unspecified non-institutional (private) residence as the place of occurrence of the external cause; C80.1 Malignant (primary) neoplasm, unspecified; C79.81 Secondary malignant neoplasm of breast; C79.51 Secondary malignant neoplasm of bone; F17.210 Nicotine dependence, cigarettes, uncomplicated; J44.9 Chronic obstructive pulmonary disease, unspecified; I95.9 Hypotension, unspecified; R00.0 Tachycardia, unspecified; Z53.29 Procedure and treatment not carried out because of patient's decision for other reasons; Z91.040 Latex allergy status; Z88.5 Allergy status to narcotic agent; Z88.2 Allergy status to sulfonamides
CPT/HCPCS: 99284; 73030; 70450; 72125; L0120 ×2